=== PATIENT | male | born 1970 | race Caucasian/White ===

== ENCOUNTER 2022-12-05 11:56 | Outpatient (OUT) | payer OTHER, SELFPAY ==
--- NOTE | 2022-12-05 12:05 | XR_ITS ---
The [address] [address] Patient Name: MERI CABRERA MRN: [id number] date: 1970 Sex: M Assigned Patient Location: [facility] Current Patient Location: [facility] Accession/Order Number: [id number] Exam Date: 12/05/2022 12:17 Report Date: 12/05/2022 13:14 At the request of: MORENO BARRERA Procedure: XR cervical spine 5V EXAMINATION: XR cervical spine 5V HISTORY: Radiculopathy, cervical region M54.12 ; chronic neck pain COMPARISON: No relevant comparison available. FINDINGS: BONES: Minimal grade 1 retrolisthesis of C3 on 4 and C4 on 5. No fracture or bone lesion. Mild uncovertebral joint spurring and facet arthropathy resulting in bone encroachment and narrowing of the C3-4, C5-6, C6-7 neural foramen, left greater than right.. DISC SPACES: Slight narrowing C3-4 and C6-7. PARASPINOUS: Negative. No paraspinous abnormality is seen. OTHER: Negative. XR/XR cervical spine 5V IMPRESSION: 1. No appreciable acute abnormality. 2. Multilevel mild degenerative changes resulting in foraminal stenosis and possibly central canal narrowing. Consider MRI for further evaluation. Electronically authenticated by: JENNY MAGAÑA Date: 12/05/2022 13:14
--- NOTE | 2022-12-05 12:06 | XR_ITS ---
[address] [address] Patient Name: MERI CABRERA MRN: [id number] date: 1970 Sex: M Assigned Patient Location: RAD Current Patient Location: [facility] Accession/Order Number: [id number] Exam Date: 12/05/2022 12:17 Report Date: 12/05/2022 12:49 At the request of: MORENO BARRERA Procedure: XR lumbar spine 2-3V EXAM: XR lumbar spine 2-3V HISTORY: Low back pain M54.50 COMPARISON: None. TECHNIQUE: 2 views FINDINGS: Satisfactory alignment. Maintained vertebral body heights and disc spaces. No acute fracture or subluxation. Scattered calcified atherosclerotic disease of aorta. XR/XR lumbar spine 2-3V IMPRESSION: Unremarkable exam. Electronically authenticated by: KHUSHI DUONG Date: 12/05/2022 12:49
== END 2022-12-05 11:57 | disposition home or self-care (01) ==
PROVIDERS: PCP Family Medicine; Visit Provider Family Medicine
DX: M54.12 Radiculopathy, cervical region (principal); M54.50 Low back pain, unspecified
CPT/HCPCS: 72050; 72100

== ENCOUNTER 2023-01-09 14:33 | Outpatient (RCR) | payer OTHER, SELFPAY | END 2023-02-12 15:20 | disposition home or self-care (01) | LOC: PT 14:33 | PROVIDERS: PCP Family Medicine; Visit Provider Psychiatry & Neurology Neurology | DX: M50.30 Other cervical disc degeneration, unspecified cervical region (principal) | CPT/HCPCS: 97012; 97110; 97140; 97162 ==

== ENCOUNTER 2023-04-16 12:30 | Outpatient (OUT) | payer OTHER, SELFPAY ==
--- NOTE | 2023-04-16 | ECG_ITS ---
The [facility] Test Date: 2023-04-16 Pat Name: MERI CABRERA Department: Room: - Gender: Male [employer]: : 1970 Requested By: MORENO BARRERA Order Number: [id number] Reading MD: RAOUL MARTINEZ Measurements Intervals [place] Rate: 99 P: ND: QRS: 70 QRSD: 90 T: 65 QT: 333 QTc: 428 Interpretive Statements ATRIAL FIBRILLATION ABNORMAL RHYTHM ECG No previous ECG available for comparison Electronically Signed On 04-17-2023 7:10:44 EST by RAOUL MARTINEZ
--- OUTSIDE RECORDS SUMMARY | 2023-04-16 12:34 | XMS_ITS | CCD ---
Author Name Unknown Address [address] [place] [address] Organization [facility] Care Team Providers Care Radiological Engineer Name Role Phone YONY TAN Unavailable Unavailable No Family, Physician Unavailable Unavailable FRANCIBARBARA Unavailable Unavailable No Family, Physician Unavailable Unavailable Ele Peoples Family Provider Mckenzie C.N.P. Marie K. Primary Care Provider Mckenzie, C.N.P. Marie Magno. Attending Provider Ele Peoples Family Provider Mckenzie C.N.P. Marie K. Primary Care Provider [phone] Mckenzie C.N.P. Marie K. Attending Provider [phone] Diana Peoples Consulting Unavailable Mckenzie, Marie K. Attending Unavailable Mckenzie, Marie K. Primary Care Unavailable Shelton, Diana Consulting Unavailable Mckenzie, Marie K. Primary Care Unavailable Mckenzie, Marie K. Attending Unavailable Mckenzie, Marie K. Consulting Unavailable Mckenzie, Marie K. Attending Unavailable Mckenzie, Marie K. Primary Care Unavailable Mckenzie, Marie K. Attending Unavailable Mckenzie, Marie K. Consulting Unavailable Mckenzie, Marie K. Primary Care Unavailable Mckenzie, Marie K. Consulting Unavailable Mckenzei, Marie K. Attending Unavailable Mckenzie, Marie K. Primary Care Unavailable Mckenzie, Marie K. Attending Unavailable Mckenzie, Marie K. Primary Care Unavailable Shelton, Diana Consulting Unavailable Mckenzie, Marie K. Attending Unavailable Mckenzie, Marie K. Primary Care Unavailable Shelton, Diana Consulting Unavailable Mckenzie, Marie K. Attending Unavailable MckenzieMerlyMarie K. Primary Care Unavailable Diana Peoples Consulting Unavailable MckenzieMarie Attending Unavailable MckenzieCarolinea Ai Consulting Unavailable MckenzieMerlyMarie K. Primary Care Unavailable MckenzieMerlyMarie K. Attending Unavailable MckenzieMerlyMarie K. Consulting Unavailable Mckenzie Marie K. Primary Care Unavailable MckenzieMerlyMarie KRaymond Consulting Unavailable Florinda Guillory Attending Unavailable MckenzieMerlyMarie KRaymond Primary Care Unavailable MckenzieCarolinea K. Attending Unavailable MckenzieMarie sadler Consulting Unavailable MckenzieMerlyMarie K. Primary Care Unavailable Kat Boss Unavailable Monica Barrera Unavailable Zeb Delarosa Attending Unavaila NOELLE Harley Referring Unavail able LESVIA BUTLER Attending Unavailable LESVIA BUTLER Referring Unavailable MONICA BARRERA Primary Care Physician Allergies Allergy Classification Reported Allergen(s) Allergy Type Date of Onset Reaction(s) Facility (1 source) No Known Medication Allergies; Translations: [No Known Medication Allergies] Propensity to adverse reactions (disorder) [facility] Repository Medications Current Medications Medication Drug Class(es) Dates Sig (Normalized) Sig (Original) Tylenol (2 sources) Start: 03-20-2023 Tylenol Refills(s) 0 Start Date: 03/20/23 Status: Ordered Albuterol (5 sources) beta2-Adrenergic Agonist Start: 03-20-2023 albuterol Refills(s) 0 Start Date: 03/20/23 Status: Ordered take 2 puff(s) by in halation every four hours as needed Albuterol Sulfate HFA 108 (90 Base) MCG/ACT 2 puff Inhalation every 4 hrs prn Active aspirin 81 mg chewable tablet (2 sources) Platelet Aggregation Inhibitor, Nonsteroidal Anti-inflammatory Drug Start: 03-20-2023 take 1 tablet by mouth once daily aspirin 81 mg Chew Tab 81 mg = 1 tab(s), Oral, Daily, # 90 tab(s), Refills(s) 3 Start Date: 03/20/23 Status: Ordered busPIRone hydrochloride 10 mg oral tablet (1 source) Start: 06-11-2021 Buspirone Active 10 MG PO TWICE DAILY 60 June 11, 2021 9:04am start daily at HS x1 week then bid gabapentin 100 mg oral capsule (2 sources) Anti-epileptic Agent Start: 03-20-2023 gabapentin 100 mg Cap Refills(s) 0 Start Date: 03/20/23 Status: Ordered metoprolol tartrate 25 mg oral tablet (2 sources) beta-Adrenergic Larry Start: 03-20-2023 take 1 tablet by mouth twice daily Metoprolol tartrate 25 mg Tab 25 mg = 1 tab(s), Oral, BID, # 60 tab(s), Refills(s) 3, Pharmacy: [facility]/pharmacy #[id number], 178, cm, 03/20/23 13:55:00 EST, Height/Length Dosing, 102.2, kg, 03/20/23 13:55:00 EST, Weight Dosing Start Date: 03/20/23 Status: Ordered Lillian (No Known Home Meds) (1 source) Start: 03-12-2021 Lillian (No Known Home Meds) Active 0 March 12, 2021 8:12am Completed/Discontinued Medications Medication Drug Class(es) Dates Sig (Normalized) Sig (Original) escitalopram 10 mg oral tablet (3 sources) Serotonin Reuptake Inhibitor Start: 08-03-2020 End: 08-22-2020 take 1 tablet by mouth once daily Escitalopram Oxalate (Lexapro) 10 mg tablet Discontinued 10 MG PO DAILY August 03, 2020 11:00am August 22, 2020 9:15am FLUoxetine 10 mg oral capsule (3 sources) Serotonin Reuptake Inhibitor Start: 08-22-2020 End: 02-12-2021 take 1 capsule by mouth once daily Fluoxetine (Prozac) 10 mg capsule Discontinued 10 MG PO DAILY August 22, 2020 9:15am February 12, 2021 8:50am sertraline 50 mg oral tablet (3 sources) Serotonin Reuptake Inhibitor Start: 02-12-2021 End: 03-12-2021 take 50 mg by mouth once daily Sertraline Discontinued 50 MG PO daily February 12, 2021 9:45am March 12, 2021 9:01am Problems Active Problems Problem Classification Problem Date Documented Date Episodic/Chronic Anxiety disorders (18 sources) Posttraumatic stress disorder; Translations: [Post-traumatic stress disorder, unspecified] Onset: 02-12-2021 Chronic Asthma (6 sources) Exacerbation of mild persistent asthma; Translations: [Mild persistent asthma with (acute) exacerbation] Chronic Crushing injury or internal injury (3 sources) Rupture of spleen; Translations: [Other injury of spleen, initial encounter] Episodic Disorders usually diagnosed in infancy, childhood, or adolescence (1 source) 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 childhood and adolescence; Translations: [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 childhood and adolescence] Onset: 09-10-2021 Chronic Essential hypertension (2 sources) Hypertensive disorder 03-20-2023 Chronic Mood disorders (10 sources) Major depressive disorder; Translations: [Major depressive disorder, single episode, unspecified] Onset: 02-12-2021 Chronic Other connective tissue disease (2 sources) Swelling of finger ; Translations: [Other specified soft tissue disorders] Episodic Other connective tissue disease (6 sources) Other specified soft tissue disorders; Translations: [Swelling of limb] Onset: 03-12-2021 Episodic Other connective tissue disease (2 sources) Pain in right lower leg; Translations: [Pain in right lower leg] Onset: 12-12-2021 Episodic Other connective tissue disease (1 source) Pain in leg, unspecified; Translations: [Pain in leg, unspecified] Onset: 11-28-2021 Episodic Other ear and sense organ disorders (3 sources) Sensorineural hearing loss, bilateral; Translations: [Sensorineural hearing loss, bilateral] Chronic Other ear and sense organ disorders (3 sources) Tinnitus; Translations: [Tinnitus, unspecified ear] Episodic Other ear and sense organ disorders (1 source) Impacted cerumen, bilateral Episodic Other non-traumatic joint disorders (3 sources) Arthralgia of the pelvic region and thigh; Translations: [Pain in right hip] Episodic Other non-traumatic joint disorders (3 sources) Hip pain; Translations: [Pain in right hip] Episodic Other nutritional; endocrine; and metabolic disorders (3 sources) Body mass index 25-29 - overweight; Translations: [Body mass index (BMI) 25.0-25.9, adult] Episodic Other nutritional; endocrine; and metabolic disorders (5 sources) Body mass index (BMI) 25.0-25.9, adult; Translations: [Body Mass Index 25.0-25.9, adult] Episodic Other upper respiratory disease (3 sources) Deviated nasal septum; Translations: [Deviated nasal septum] Episodic Residual codes; unclassified (3 sources) Chews tobacco ; Translations: [Tobacco use] Episodic Residual codes; unclassified (2 sources) Insomnia; Translations: [Insomnia, unspecified] Episodic Residual codes; unclassified (2 sources) Insomnia, unspecified; Translations: [Insomnia, unspecified] Episodic Residual codes; unclassified (1 source) Body mass index 20-24 - normal; Translations: [Body mass index (BMI) 24.0-24.9, adult] Episodic Residual codes; unclassified (1 source) Body mass index (BMI) 24.0-24.9, adult; Translations: [Body Mass Index between 19-24, adult] Episodic Residual codes; unclassified (2 sources) Memory impairment 03-20-2023 Episodic Skin and subcutaneous tissue infections (2 sources) Cellulitis of right lower limb; Translations: [Cellulitis of right lower limb] Onset: 12-03-2021 Episodic Spondylosis; intervertebral disc disorders; other back problems (3 sources) Radiculopathy, cervical region; Translations: [Spinal stenosis, cervical region] Episodic Substance-related disorders (9 sources) Nicotine dependence; Translations: [Nicotine dependence, cigarettes, uncomplicated] Chronic Suicide and intentional self-inflicted injury (3 sources) Suicidal thoughts; Translations: [Suicidal ideations] Episodic Systemic lupus erythematosus and connective tissue disorders (2 sources) Autoimmune disease 03-20-2023 Chronic Unclassified (7 sources) Tobacco use; Translations: [Tobacco use disorder] Onset: 04-28-2017 Episodic Unclassified (1 source) Emphysema, unspecified / J43.9(ICD-10) Onset: 04-27-2017 Unclassified (1 source) Encounter for preprocedural laboratory examination / Z01.812(ICD-10) Onset: 04-28-2017 Unclassified (1 source) Encounter for other preprocedural examination / Z01.818(ICD-10) Onset: 04-14-2017 Unclassified (2 sources) Unilateral primary osteoarthritis, right hip / M16.11(ICD-10) Onset: 04-27-2017 Unclassified (2 sources) Tobacco use / Z72.0(ICD-10) Onset: 04-27-2017 Unclassified (1 source) Carrier or suspected carrier of methicillin resistant Staphylococcus aureus / Z22.322(ICD-10) Onset: 04-28-2017 Past or Other Problems Problem Classification Problem Date Documented Date Episodic/Chronic Immunizations and screening for infectious disease (1 source) Carrier or suspected carrier of Methicillin resistant Staphylococcus aureus; Translations: [Carrier or suspected carrier of methicillin resistant Staphylococcus aureus] Onset: 04-28-2017 Episodic Unclassified (1 source) Unilateral primary osteoarthritis, right hip; Translations: [Unilateral primary osteoarthritis, right hip] Onset: 04-28-2017 Unclassified (1 source) Encounter for preprocedural laboratory examination; Translations: [Encounter for preprocedural laboratory examination] Onset: 04-28-2017 Unclassified (1 source) Lumbar pain M54.50 Results Test Name Value Interpretation Reference Range Facility [facility] V[facility] Office/ inic Noteon 03-30-2023 Heart and Vascular Office/Clinic Note Chief Complaint here to establish care - tachycardia History of Present Illness Chuckie Rangel is a 52-year-old male with no prior cardiac history who presented with atrial fibrillation detected on his EKG. The patient reports that he had neck discomfort, left arm numbness, and blurry vision. These symptoms occurred during strenuous work at [employer], involving fast-paced tasks and a sudden physical exertion by a colleague. Despite a brief improvement in a different role, his symptoms worsened when the workload intensified. He sought medical attention after persistent left arm numbness and tingling, with a dismissive response that he did not have a heart attack or excessive perspiration. He experienced a workplace fall at the parking lot in [place], resulting in a ruptured spleen and a right arm fracture. He walked into the clinic and reported an inability to move the affected arm. Pain is elicited upon twisting the arm, but the patient demonstrates tolerance to pain. He went to occupational health after 3.5 hours, where they advised him to go home and get some rest. When he got home, he called 911, and they sent him straight to [facility], where they found a ruptured spleen. He has been bleeding since 2:30 AM. He denies any heart problems. He experiences sensations of a rapid and irregular heartbeat. Occasional chest pain and tightness are noted, occurring even at rest. Fatigue is pronounced, leading to increased sleep duration. The patient experiences ankle swelling and consistently wears socks. He was adopted when he was 5 years old. He used to consume alcohol, but he quit approximately 7 months ago. He drinks almost every day. Review of Systems Constitutional: no fever, no sweats, no weakness Skin: no rash, no lesions, no bruising/petechiae ENMT: no sore throat, no congestion, no hoarseness Respiratory: no shortness of breath, no cough, no orthopnea, no wheezing Cardiovascular: positive for chest discomfort, positive for palpitations, no edema Gastrointestinal: no nausea, no vomiting, no diarrhea, no GI bleeding Genitourinary: no anuria/oliguria no hematuria Musculoskeletal: positive for neck discomfort and left arm numbness Neurologic: no headache, no dizziness, no numbness, no weakness Psychiatric: no sleeping problems, no irritability, no anxiety/depression. Heme/Lymph: no bleeding tendency, no bruising tendency Allergy/Immunologic: no recurrent infections, no impaired immunity Additional ROS info: Except as noted in the above Review of Systems and in the History of Present Illness all other systems have been reviewed and are negative or noncontributory Physical Exam Vitals & Measurements HR: 116(Peripheral) BP: 132/80 SpO2: 96% HT: 70 in HT: 178 cm WT: 102.2 kg WT: 224.84 lb BMI: 32.26 General: alert, no acute distress Skin: warm, dry intact Head: atraumatic, normocephalic Neck: trachea midline, no JVD, no bruit Eye: normal conjunctiva, sclera clear ENMT: oral mucosa moist Cardiovascular: regular rate and rhythm, no murmur, normal peripheral perfusion Respiratory: lungs CTA, respirations non labored Chest wall: no deformity. Gastrointestinal: soft, non-distended, no tenderness, no guarding. Back: no tenderness, normal ROM, normal alignment. Extremities: no edema, no deformity, no trauma Neurological: oriented x 4, LOC appropriate for age, sensation equal & normal bilaterally, speech normal Psychiatric: cooperative, affect appropriate for age, normal judgement, normal psychiatric thoughts. Assessment/Plan 1. New onset atrial fibrillation 52-year-old male with no prior cardiac history and atrial fibrillation detected on his EKG. The duration is unclear because the patient has some palpitations but never really felt like there was a specific time that things changed for him. He has been having some issues at work recently, but the symptoms in his left arm appear to be unrelated. He does have a little chest discomfort with exertion. He has PVCs and atrial fibrillation. We will get a nuclear medicine stress test to evaluate that. We will also do a transthoracic echocardiogram due to new-onset atrial fibrillation. We will start him on aspirin 81 mg and metoprolol 25 mg twice a day. Follow up in 6 weeks in [place]. ATTESTATION: Portions of this record may have been created with voice recognition artificial intelligence software, specifically [employer], [employer]umi[employer] and or Cannae. Substitutions may have occurred with voice recognition and artificial intelligence software. Documentation services were performed after patient or guardian consented to allow [employer] travel to record this visit. ESTEFANIA calibration specialist and provider reviewed before signing. ESTEFANIA: Laurie Kaur Follow-up No qualifying data available Problem List/Past Medical History Ongoing No qualifying data Historical Anxiety Asthma Autoimmune disorder Hypertension Memory Issu (more content not included)... Normal [facility] Comment on above: Result Comment: Elec tronically Signed By: Isaura RUBIO, Zeb Reza\.br\Date and Time Signed: 03/30/23 21:01 EST\.br\Electronically Co-Signed By: Laurie Kaur\.br\Date and Time Co-Signed: 03/20/23 17:31 EST Insurance Correspondenceon 0 03-28-2023 Insurance Correspondence [id number]#1.00T [facility] Insurance Correspondence [id number]#1.00T IFF [facility] Electrocardiogram - 12 leado n 03-21-2023 Electrocardiogram - 12 lead [id number]#1.00 TIFF [facility] Physician Orderon 03-21-2023 Physician Order [id number]#1.00 TIFF [facility] Referrals Officeon Referrals Office [id number]#1.00 TIFF Normal [facility] MRI TIB/FIB Right w/wo Conto n 12-21-2021 MRI TIB/FIB Right w/wo Cont [place] [id number] [facility] MRI Report Name: MERI NOGUERA Mark Coello Pt Type: DEP OUT MR #: [id number] Room & Bed: Date of : 1970 Date of Service: 12/20/21 Age: 51 Ordering Doctor: Marie Mckenzie CNP Sex: Male Family Doctor: Marie Mckenzie PROFESSIONAL ARCHITECT Order #: [id number] Dictating Doctor: Meri Ozuna Admit Date: Referring Doctor: Other Doctor: Additional Copies: === WHRPT:HIE CLINICAL HISTORY: Right lower leg pain and swelling for 5 weeks. MRI RIGHT TIBIA/FIBULA WITH AND WITHOUT CONTRAST: TECHNIQUE: Before and after the administration of 18 mL of IV Omniscan contrast, multiplanar long and short TR and TE images were obtained through the right tibia/fibula and the coronal and axial images also include the left tibia/fibular for comparison purposes. COMPARISON: Radiographs of 12/03/2021. FINDINGS: There is a nondisplaced oblique fracture (most likely a stress or insufficiency fracture) in the distal diaphysis and metaphysis of the right tibia, with extensive surrounding bone marrow edema and periosteal edema throughout the distal half of the right tibia. No abnormal underlying bone lesion is seen. The remainder of the bone marrow is normal in signal. The visualized muscles and tendons are intact. No abnormal fluid collection or soft tissue mass is seen. IMPRESSION: 1. Nondisplaced oblique fracture (most likely a stress or insufficiency fracture) in the distal diaphysis and metaphysis of the right tibia, with extensive surrounding bone marrow edema and periosteal edema. THIS REPORT HAS BEEN ELECTRONICALLY SIGNED BY: 12/21/2021 10:51: Meri Ozuna MD 12/21/21 1053 ---- DICTATED BY: Meri Ozuna CC: CONFIDENTIALITY NOTICE: This report is for the sole use of the intended recipient and may contain confidential and privileged information. Any unauthorized review, use, disclosure or distribution is prohibited. If you are not the intended recipient, please contact [facility] at [phone] and destroy all copies of the original. Normal [facility] CBC W Auto Differential pane l (Bld)on 12-18-2021 BASOPHIL ABSOLUTE COUNT 0.07 x10*3/uL Normal 0.0-0.1 [facility] Comment on above: Performed By: #### 5 7021-8, 66446-3, 99998-4 #### [facility] [address] Basophils/100 WBC (Bld) 0.3 % Normal 0.0-1.1 [facility] Comment on above: Performed By: #### 5 7021-8, 81850-0, 34645-2 #### [facility] [address] EOS ABSOLUTE COUNT 0.18 x10*3/uL Normal 0.0-0.5 [facility] Comment on above: Performed By: #### 5 7021-8, 58547-0, 47264-6 #### [facility] [address] [address] [facility] Eosinophils/100 WBC (Bld) 0.8 % Normal 0.0-6.0 [facility] Comment on above: Performed By: #### 5 7021-8, 40153-2, 14595-0 #### [facility] [address] [address] [facility] Hematocrit (Bld) [Volume fraction] 44.3 % Normal 35.0-49.0 [facility] Comment on above: Performed By: #### 5 7021-8, 82262-6, 21001-4 #### [facility] [address] Hemoglobin (Bld) [Mass/Vol] 14.6 g/dL Normal 11.5-17.0 [facility] Comment on above: Performed By: #### 5 7021-8, 85625-8, 87321-3 #### [facility] [address] IMMATURE GRAN ABSOLUTE COUNT 0.12 x10*3/uL Normal 0.0-0.5 [facility] Comment on above: Performed By: #### 5 7021-8, 07301-0, 13720-3 #### [facility] [address] Immature granulocytes/100 WBC (Bld) 0.5 % Normal 0.0-2.99 [facility] Comment on above: Performed By: #### 5 7021-8, 42138-1, 54464-1 #### [facility] [address] LYMPHOCYTE ABSOLUTE COUNT 5.98 x10*3/uL High 0.5-3.2 [facility] Comment on above: Performed By: #### 5 70-8, 33815-1, 95089-1 #### [facility] [address] Lymphocytes/100 WBC (Bld) 26.1 % Normal 13.0-39.0 [facility] Comment on above: Performed By: #### 5 7021-8, 64774-5, 62001-5 #### [facility] [address] MCH (RBC) [Entitic mass] 30.8 pg Normal 26.0-33.0 [facility] Comment on above: Performed By: #### 5 7021-8, 36746-4, 90321-9 #### [facility] [address] MCV (RBC) [Entitic vol] 93.5 fL Normal 81.0-98.0 [facility] Comment on above: Performed By: #### 5 7021-8, 73878-8, 88051-6 #### [facility] [address] MEAN CORPUSCULAR HGB CONC 33.0 g/dl Normal 31.0-35.0 [facility] Comment on above: Performed By: #### 5 7021-8, 26972-7, 83331-0 #### [facility] [address] [address] [facility] MONOCYTE ABSOLUTE COUNT 2.31 x10*3/uL High 0.0-1.0 [facility] Comment on above: Performed By: #### 5 7021-8, 98569-7, 43718-3 #### [facility] [address] [address] [facility] Monocytes/100 WBC (Bld) 10.1 % Normal 4.0-13.0 [facility] Comment on above: Performed By: #### 5 7021-8, 33091-8, 08741-0 #### [facility] [address] [address] [facility] NEUTROPHIL COUNT ABSOLUTE 14.27 x10*3/uL High 1.5-6.2 [facility] Comment on above: Performed By: #### 5 7021-8, 67259-4, 51639-9 #### [facility] [address] [address] [facility] Neutrophils/100 WBC (Bld) 62.2 % Normal 47.0-76.0 [facility] Comment on above: Performed By: #### 5 7021-8, 40357-0, 17758-1 #### [facility] [address] [address] [facility] NUCLEATED RBC ABSOLUTE COUNT 0.00 x10*3/uL Normal [facility] Comment on above: Performed By: #### 5 7021-8, 48455-5, 27508-0 #### [facility] [address] [address] [place] Nucleated RBC/100 WBC (Bld) [Ratio] 0.0 % Normal [facility] Comment on above: Performed By: #### 5 7021-8, 63136-3, 78522-8 #### [facility] [address] [address] [facility] PLATELET COUNT 430 x10*3/uL High 150-400 [facility] Comment on above: Performed By: #### 5 7021-8, 07909-1, 05608-9 #### [facility] [address] Platelet mean volume (Bld) [Entitic vol] 10.6 fL Normal 9.0-12.1 [facility] Comment on above: Performed By: #### 5 7021-8, 75815-8, 80592-1 #### [facility] [address] RED BLOOD COUNT 4.74 x10*6/uL Normal 3.8-6.0 [facility] Comment on above: Performed By: #### 5 7021-8, 14882-9, 33415-6 #### [facility] [address] RED CELL DISTRIBUTION WIDTH 46.0 fL Normal 36.7-49.4 [facility] Comment on above: Performed By: #### 5 70-8, 84250-4, 93928-8 #### [facility] [address] WHITE BLOOD COUNT 22.93 X10*3/uL High 3.8-11.0 [facility] Comment on above: Performed By: #### 5 7021-8, 00922-7, 69769-0 #### [facility] [address] Differential panel (Body fld )on 12-18-2021 BANDS 2 % High 0-1 [facility] Comment on above: Performed By: #### 5 7021-8, 17115-7, 08911-9 #### [facility] [place] [id number] [facility] Basophils/100 WBC (Bld) 0 % Normal 0-1 [facility] Comment on above: Performed By: #### 5 7021-8, 34415-4, 87926-1 #### [facility] [place] [id number] [facility] Eosinophils/100 WBC (Bld) 1 % Normal 0-6 [facility] Comment on above: Performed By: #### 5 7021-8, 95197-8, 19393-9 #### [facility] [address] [address] [place] Lymphocytes/100 WBC (Bld) 25 % Low 38-46 [facility] Comment on above: Performed By: #### 5 7021-8, 97694-6, 59134-3 #### [facility] [address] [address] [place] Monocytes/100 WBC (Bld) 4 % Normal 2-10 [facility] Comment on above: Performed By: #### 5 7021-8, 14632-8, 68953-8 #### [facility] [address] [address] [place] Neutrophils/100 WBC (Bld) 62 % Normal 47-76 [facility] Comment on above: Performed By: #### 5 7021-8, 30434-7, 15271-5 #### [facility] [address] [address] [facility] Variant lymphocytes/100 WBC (Bld) 6 % Normal [facility] Comment on above: Performed By: #### 5 7021-8, 57118-5, 17361-8 #### [facility] [address] [address] [facility] Pathologist review of result son 12-18-2021 Pathologist review Armando (Unsp spec) [Interp] SEE COMMENT Normal [facility] Comment on above: Result Comment: Lymp hocytosis noted, favor reactive. If persistent, further investigation with flow cytometric analysis of peripheral blood is suggested for lymphocyte phenotyping in order to exclude a lymphoproliferative neoplasm. Reviewed by Dr. Kumar Performed By: #### 5 7021-8, 94196-9, 19604-5 #### [facility] [address] [address] [place] Urate [Mass/Vol]on 2 CNET-Uric Acid #URIC 6.7 MG/DL Normal 4.0-8.0 [facility] Comment on above: Result Comment: (NOT E)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
[2023-04-16 13:47] LABS: Basophils Absolute Auto 0.1 10^3/uL (0.0-0.1); Eosinophils Absolute Auto 0.2 10^3/uL (0.0-0.7); Eosinophils Percent Auto 1.9 % (0.9-7.0); Immature Granulocytes Abs Auto 0.02 10^3/uL (0.00-0.03); Immature Granulocytes Pct Auto 0.2 % (0.0-0.5); Lymphocytes Absolute Auto 3.8 10^3/uL (1.2-3.8); Lymphocytes Percent Auto 30.2 % (20.5-60.0); Mean Corpuscular HGB Conc 32.6 g/dL (29.9-35.2); Mean Corpuscular Hemoglobin 30.1 pg (25.9-34.0); Mean Corpuscular Volume 92.4 fL (80.0-94.0); Mean Platelet Volume 10.8 fL (9.5-13.5); Monocytes Absolute Auto 1.2 10^3/uL (0.3-0.8); Monocytes Percent Auto 9.4 % (1.7-12.0); Neutrophils Absolute Auto 7.1 10^3/uL (1.4-6.5); Neutrophils Percent Auto 57.3 % (43.0-75.0); Platelet Count 377 10^3/uL (150-450); Red Blood Count 4.98 10^6/uL (4.70-6.10); Red Cell Distribution Width 13.5 % (11.0-15.0); White Blood Count 12.4 10^3/uL (4.0-11.0)
[2023-04-16 14:02] LABS: Anion Gap 8.2; Calcium 9.2 mg/dL (8.5-10.1); Carbon Dioxide 32.9 mmol/L (21.0-32.0); Chloride 102 mmol/L (98-107); Estimated GFR (African America >60 (>=60); Estimated GFR (Non-African Ame >60 (>=60); Glucose 95 mg/dL (74-106); Potassium 4.1 mmol/L (3.5-5.1); Sodium 139 mmol/L (136-145)
== END 2023-04-16 12:31 | disposition home or self-care (01) ==
PROVIDERS: PCP Family Medicine; Visit Provider Orthopaedic Surgery
DX: Z01.812 Encounter for preprocedural laboratory examination (principal); Z01.810 Encounter for preprocedural cardiovascular examination; M25.531 Pain in right wrist; M25.532 Pain in left wrist; G56.03 Carpal tunnel syndrome, bilateral upper limbs; M54.12 Radiculopathy, cervical region
CPT/HCPCS: 36415; 80048; 85025; 93005

== ENCOUNTER 2023-04-23 11:27 | Outpatient (OUT) | payer OTHER, SELFPAY ==
--- OUTSIDE RECORDS SUMMARY | 2023-04-23 11:32 | XMS_ITS | CCD ---
Author Name Unknown Address [address] [place] [address] Organization [facility] Care Team Providers Care Solutions Manager Name Role Phone TANYONY Unavailable Unavailable No Family, Physician Unavailable Unavailable BARBARA KOROMA Unavailable Unavailable No Family, Physician Unavailable Unavailable Ele Peoples Family Provider [phone] Claudia Mckenzie Primary Care Provider Mone MckenzieNJovany Morelandndmark Cloud Attending Provider [phone] Ele Peoples Family Provider Claudia Mckenziendmark Cloud Primary Care Provider Claudia Mckenziendmark Kiran. Attending Provider [phone] Diana Peoples Consulting Unavailable Mckenzie, Marie Magno. Attending Unavailable Mckenzie, Marie K. Primary Care Unavailable Diana Peoples Consulting Unavailable Mckenzie, Marie K. Primary Care Unavailable Mckenzie, Marie K. Attending Unavailable Mckenzie, Marie K. Consulting Unavailable Mckenzie, Marie K. Attending Unavailable Mckenzie, Marie K. Primary Care Unavailable Mckenzie, Marie K. Attending Unavailable Mckenzie, Marie K. Consulting Unavailable Mckenzie, Marie K. Primary Care Unavailable Mckenzie, Marie K. Consulting Unavailable Mckenzie, [...] Care Unavailable Mckenzie, Marie K. Consulting Unavailable Florinda Guillory Attending Unavailable Mckenzie, Marie K. Primary Care Unavailable Mckenzie, Marie K. Attending Unavailable Mckenzie, Marie K. Consulting Unavailable Mckenzie, Marie K. Primary Care Unavailable Kat Boss Unavailable Monica Barrera Unavailable LESVIA BUTLER Attending Unavailable LESVIA BUTLER Referring Unavailable MONICA BARRERA Primary Care Physician MELANY Le Attending Provider Unavailable MD Monica Barrera Primary Care Provider Monica Barrera Primary Care Unavailable Noelle Le Attending Unavailable Noelle Le Admitting Unavailable NOELLE LE Referring Unavail able Zeb Delarosa Attending Zeb Fuchs Admitting Zeb Fuchs Consulting UnavailZeb Alegria Attending Zeb Fuchs Referring UnavailZeb Alegria Consulting UnavailZeb Alegria Consulting Unavailmark ramirez Allergies Allergy Classification Reported Allergen(s) Allergy Type Date of Onset Reaction(s) Facility (1 source) Unable to Assess Drug allergy (disorder) [facility] Repository (1 source) No Known Medication Allergies; Translations: [No Known Medication Allergies] Propensity to adverse reactions (disorder) [facility] Repository Medications Current Medications Medication Drug Class(es) [...] BID, # 60 tab(s), Refills(s) 3, Pharmacy: [facility]/pharmacy #[id number], 178, cm, 03/20/23 13:55:00 EST, Height/Length Dosing, 102.2, kg, 03/20/23 13:55:00 EST, Weight Dosing Start Date: 03/20/23 Status: Ordered [place] (No Known Home Meds) (1 source) Start: 03-12-2021 [place] (No Known Home Meds) Active 0 March [...] Test Name Value Interpretation Reference Range Facility NM Myocardial Spect Rest/Str ess 1 Dayon 04-22-2023 NM Myocardial Spect Rest/Stress 1 Day Exam Date/Time: 04/15/2023 11:35 EST Reason for Exam: R00.0, R07.9;Chest pain Report PROCEDURE: Lexiscan nuclear stress test. INDICATIONS: Chest pain. PROCEDURE DETAILS: The patient was stressed according to Lexiscan protocol without event. The patient's baseline EKG was atrial fibrillation with rapid ventricular response and the patient remained in atrial fibrillation with rapid ventricular response throughout the test. There were no EKG changes and no symptoms. Blood pressure response was appropriate. The patient received 10.4 mCi of Cardiolite for rest images and 30.1 mCi of Cardiolite for stress images. Review of raw images demonstrated some soft tissue attenuation and mild motion artifact. FINDINGS: Uptake of the tracer was homogeneous with no identifiable ischemia or infarction. The TID ratio was 0.91. The ejection fraction was 35%. End-diastolic volume was 127 mL. CONCLUSIONS: Abnormal Lexiscan stress test for significant reduction of ejection fraction, otherwise no significant findings. Cannot exclude the ejection fraction is related to gating artifact from atrial fibrillation with rapid ventricular response. Clinical correlation is suggested. FINAL REPORT Signed (Electronic Signature): 04/22/2023 2:55 pm Signed by: Zeb Delarosa MD Transcribed by: brooke Technologist: LANE Technical Comments Rest Dose (mCi Tc99m Cardiolite): 10.4 Stress Dose (mCi Tc99M Cardiolite): 30.1 Normal [facility] MR cervical spine wo conon 0 04-17-2023 MR cervical spine wo [facility] [place] [address] [place] [address] MRI Report Signed Patient: Meri Noguera MR#: [id number] : 1970 Acct:[id number] Age/Sex: 52 / M ADM Date: 04/17/23 Loc: Room: Type: [facility] Attending Dr: Noelle Le RN Copies to: Noelle Le RN Ordering Provider: Noelle Le RN Date of Service: 04/17/23 MR/MR cervical spine wo con: M54.12 MR cervical spine wo con 04/17/2023 7:24 AM SIGNS AND SYMPTOMS: Cervical radiculopathy PROTOCOL: Multiplanar multisequence MR images of the cervical spine were obtained without IV contrast COMPARISON: None. FINDINGS: The bones of the cervical spine are in anatomic alignment. There is preservation of vertebral body heights. There is mild vertebral disc height loss at C6-C7. There is right-sided facet edema at C7. There is Modic type I endplate edema at C3-C4 and C4-C5. The cord is normal in signal. No epidural or paraspinous fluid collection is appreciated. The visualized paraspinous soft tissues are within normal limits. The prevertebral soft tissues are within normal limits. At C2-C3: There is a normal disc, central canal, and neural foramen. At C3-C4: There is right-sided uncovertebral joint spurring and bilateral facet hypertrophy. There is moderate right and mild left neural foraminal narrowing. At C4-C5: There is a broad-based disc bulge with mild facet and uncovertebral degenerative change. There is mild bilateral neural foraminal narrowing without significant spinal canal narrowing. At C5-C6: There is a normal disc, central canal, and neural foramen. At C6-C7: There is a broad-based disc bulge with facet and uncovertebral degenerative change contributing to mild spinal canal narrowing and mild bilateral neural foraminal. At C7-T1: There is a normal disc, central canal, and neural foramen. MR/MR cervical spine wo con IMPRESSION: No cord compression or cord signal abnormality. At C3-C4: There is right-sided uncovertebral joint spurring and bilateral facet hypertrophy. There is moderate right and mild left neural foraminal narrowing. At C4-C5: There is a broad-based disc bulge with mild facet and uncovertebral degenerative change. There is mild bilateral neural foraminal narrowing without significant spinal canal narrowing. At C6-C7: There is a broad-based disc bulge with facet and uncovertebral degenerative change contributing to mild spinal canal narrowing and mild bilateral neural foraminal. Impression dictated by: Robe Fox M.D.04/17/2023 2:28 PM Dictation Location: [place] [address] Transcribed By: [facility] 04/17/231427 Dictated By: Robe Fox II, MD 04/17/231424 Signed By: 04/17/23 1428 [facility] MR head/brain wo/w conon MR head/brain wo/w con [facility] [address] MRI Report Signed Patient: Meri Noguera MR#: [id number] : 1970 Acct:[id number] Age/Sex: 52 / M ADM Date: 04/17/23 Loc: MR Room: Type: [facility] Attending Dr: Noelle Le RN Copies to: Noelle Le RN Ordering Provider: Noelle Le RN Date of Service: 04/17/23 MR/MR head/brain wo/w con: H53.8, R20.2 MR head/brain wo/w con 04/17/2023 7:24 AM SIGN AND SYMPTOMS: Left arm numbness, blurred vision PROTOCOL: Multiplanar multisequence MR images of the brain were obtained with and without IV contrast CONTRAST: 20 mL of intravenous ProHance COMPARISON: None. FINDINGS: Extra axial spaces: Age appropriate. Hemorrhage: None. Ventricular system: Within normal limits. Basal cisterns: Within normal limits and not effaced. Cerebral parenchyma: There are punctate foci of T2 and T2 FLAIR hyperintense signal consistent with mild chronic microvascular ischemic change. Midline shift: None.. Cerebellum: Within normal limits. Brainstem: Within normal limits. OTHER: Calvarium: Normal marrow signal. Vascular system: Satisfactory flow voids within the anterior and posterior circulation. Visualized Paranasal sinuses: Mucosal thickening is noted in the maxillary sinuses, left sphenoid sinus, and ethmoid air cells. Visualized Orbits: Within normal limits. Visualized upper cervical spine: Within normal limits. Sella and skull base: Within normal limits. MR/MR head/brain wo/w con IMPRESSION: No acute intracranial pathology. Findings suggest mild chronic microvascular ischemic change. Mucosal thickening is noted in the maxillary sinuses, left sphenoid sinus, and ethmoid air cells. Impression dictated by: Robe Fox M.D.04/17/2023 2:35 PM Dictation Location: [place] [address] Transcribed By: [facility] 04/17/23 1435 Dictated By: Robe Fox II, MD 04/17/23 1429 Signed By: 04/17/23 1435 [facility] Consent for Treatmenton 03-25 Consent for Treatment [id number]#1.00T IFF Normal [facility] Heart and Vascular Office/Cl inic Noteon 03-30-2023 Heart and Vascular Office/Clinic Note Chief Complaint here to establish care - tachycardia History of Present Illness Chuckie Jerez is a 52-year-old male with no prior cardiac history who presented with atrial fibrillation detected on his EKG. The patient reports that he had neck discomfort, left arm numbness, and blurry vision. These symptoms occurred during strenuous work at [employer], involving fast-paced tasks and a sudden physical exertion by a colleague. Despite a brief improvement in a different role, his symptoms worsened when the workload intensified. He sought medical attention after persistent left arm numbness and tingling, with a dismissive response that he did not have a heart attack or excessive perspiration. He experienced a workplace fall at the parking lot in [place], resulting in a ruptured spleen and a [...] 911, and they sent him straight to [facility], where they found a ruptured spleen. [...] day. Follow up in 6 weeks in [place]. ATTESTATION: Portions of this record may have been created with voice recognition artificial intelligence software, specifically [employer] and or [employer] Substitutions may have occurred with voice recognition and artificial intelligence software. Documentation services were performed after patient or guardian consented to allow [employer] to record this visit. ESTEFANIA media marketing specialist and provider reviewed before signing. ESTEFANIA: Laurie Kaur Follow-up No qualifying data available Problem List/Past Medical History Ongoing No qualifying data Historical Anxiety Asthma Autoimmune disorder Hypertension Memory Issu (more content not included)... Normal [facility] Comment on above: Result Comment: Elec tronically Signed By: Isaura RUBIO, Zeb Reza\.br\Date and Time Signed: 01/07/24 21:01 EST\.br\Electronically Co-Signed By: Laurie Kaur\.br\Date and Time Co-Signed: 03/20/23 17:31 EST Insurance Correspondenceon 0 03-28-2023 Insurance Correspondence [id number]#1.00T IFF Normal [facility] Insurance Correspondence [id number]#1.00T IFF Normal [facility] Electrocardiogram - 12 leado n 03-21-2023 Electrocardiogram - 12 lead [id number]#1.00 TIFF Normal [facility] Physician Orderon 03-21-2023 Physician Order [id number]#1.00 TIFF Normal [facility] Referrals Officeon Referrals Office [id number]#1.00 TIFF Normal [facility] MRI TIB/FIB Right w/wo Conto n 12-21-2021 MRI TIB/FIB Right w/wo Cont [place] [address] Diagnostic Imaging MRI Report Name: MERI NOGUERA Sr. Pt Type: DEP OUT MR #: [id number] Room & Bed: Date of : 1970 Date of Service: 12/20/21 Age: 51 Ordering Doctor: Marie Mckenzie CNP Sex: Male Family Doctor: Marie Mckenzie CINDER BLOCK MASON Order #: [id number] Dictating Doctor: Meri Ozuna Admit Date: Referring [...] are not the intended recipient, please contact [facility] at [phone] and destroy all copies of the original. Normal [facility] CBC W Auto Differential pane l (Bld)on 12-18-2021 BASOPHIL ABSOLUTE COUNT 0.07 x10*3/uL Normal 0.0-0.1 [facility] Comment on above: Performed By: #### 5 7021-8, 50016-8, 13068-7 #### [facility] [address] Basophils/100 WBC (Bld) 0.3 % Normal 0.0-1.1 [facility] Comment on above: Performed By: #### 5 7021-8, 22126-9, 24656-5 #### [facility] [address] EOS ABSOLUTE COUNT 0.18 x10*3/uL Normal 0.0-0.5 [facility] Comment on above: Performed By: #### 5 7021-8, 03787-5, 74820-8 #### [facility] [address] Eosinophils/100 WBC (Bld) 0.8 % Normal 0.0-6.0 [facility] Comment on above: Performed By: #### 5 7021-8, 58397-2, 63393-2 #### [facility] [address] Hematocrit (Bld) [Volume fraction] 44.3 % Normal 35.0-49.0 [facility] Comment on above: Performed By: #### 5 7020-8, 36050-1, 45640-0 #### [facility] [address] Hemoglobin (Bld) [Mass/Vol] 14.6 g/dL Normal 11.5-17.0 [facility] Comment on above: Performed By: #### 5 70-8, 68299-6, 97638-2 #### [facility] [address] IMMATURE GRAN ABSOLUTE COUNT 0.12 x10*3/uL Normal 0.0-0.5 [facility] Comment on above: Performed By: #### 5 7021-8, 71488-0, 58769-2 #### [facility] [address] Immature granulocytes/100 WBC (Bld) 0.5 % Normal 0.0-2.99 [facility] Comment on above: Performed By: #### 5 7021-8, 75241-4, 62793-5 #### [facility] [address] LYMPHOCYTE ABSOLUTE COUNT 5.98 x10*3/uL High 0.5-3.2 [facility] Comment on above: Performed By: #### 5 7021-8, 74709-1, 46150-5 #### [facility] [address] Lymphocytes/100 WBC (Bld) 26.1 % Normal 13.0-39.0 [facility] Comment on above: Performed By: #### 5 7021-8, 01201-7, 27435-5 #### [facility] [address] MCH (RBC) [Entitic mass] 30.8 pg Normal 26.0-33.0 [facility] Comment on above: Performed By: #### 5 7021-8, 85886-6, 61766-4 #### [facility] [address] MCV (RBC) [Entitic vol] 93.5 fL Normal 81.0-98.0 [facility] Comment on above: Performed By: #### 5 7020-8, 62286-2, 56513-8 #### [facility] [address] MEAN CORPUSCULAR HGB CONC 33.0 g/dl Normal 31.0-35.0 [facility] Comment on above: Performed By: #### 5 7020-8, 11709-5, 32668-0 #### [facility] [address] MONOCYTE ABSOLUTE COUNT 2.31 x10*3/uL High 0.0-1.0 [facility] Comment on above: Performed By: #### 5 7020-8, 59058-5, 41949-6 #### [facility] [address] Monocytes/100 WBC (Bld) 10.1 % Normal 4.0-13.0 [facility] Comment on above: Performed By: #### 5 70-8, 16557-7, 57247-5 #### [facility] [address] NEUTROPHIL COUNT ABSOLUTE 14.27 x10*3/uL High 1.5-6.2 [facility] Comment on above: Performed By: #### 5 7021-8, 27639-3, 87764-6 #### [facility] [address] Neutrophils/100 WBC (Bld) 62.2 % Normal 47.0-76.0 [facility] Comment on above: Performed By: #### 5 7021-8, 84101-3, 80528-5 #### [facility] [address] NUCLEATED RBC ABSOLUTE COUNT 0.00 x10*3/uL Normal [facility] Comment on above: Performed By: #### 5 7021-8, 24892-2, 75502-2 #### [facility] [address] Nucleated RBC/100 WBC (Bld) [Ratio] 0.0 % Normal [facility] Comment on above: Performed By: #### 5 7021-8, 04336-7, 81749-7 #### [facility] [address] PLATELET COUNT 430 x10*3/uL High 150-400 [facility] Comment on above: Performed By: #### 5 7021-8, 10203-0, 65020-7 #### [facility] [address] Platelet mean volume (Bld) [Entitic vol] 10.6 fL Normal 9.0-12.1 [facility] Comment on above: Performed By: #### 5 7021-8, 88115-8, 57835-5 #### [facility] [address] RED BLOOD COUNT 4.74 x10*6/uL Normal 3.8-6.0 [facility] Comment on above: Performed By: #### 5 7021-8, 77406-3, 65388-6 #### [facility] [address] RED CELL DISTRIBUTION WIDTH 46.0 fL Normal 36.7-49.4 [facility] Comment on above: Performed By: #### 5 7021-8, 30550-2, 90787-4 #### [facility] [address] [address] [place] WHITE BLOOD COUNT 22.93 X10*3/uL High 3.8-11.0 [facility] Comment on above: Performed By: #### 5 7021-8, 75798-0, 21820-7 #### [facility] [address] [address] [place] Differential panel (Body fld )on 12-18-2021 BANDS 2 % High 0-1 [facility] Comment on above: Performed By: #### 5 7021-8, 06360-5, 74777-7 #### [facility] [address] [address] [place] Basophils/100 WBC (Bld) 0 % Normal 0-1 [facility] Comment on above: Performed By: #### 5 7021-8, 19777-7, 23133-7 #### [facility] [address] [address] [place] Eosinophils/100 WBC (Bld) 1 % Normal 0-6 [facility] Comment on above: Performed By: #### 5 7021-8, 64073-9, 17450-5 #### [facility] [address] [address] [place] Lymphocytes/100 WBC (Bld) 25 % Low 38-46 [facility] Comment on above: Performed By: #### 5 7021-8, 65022-2, 59178-1 #### [facility] [address] [address] [place] Monocytes/100 WBC (Bld) 4 % Normal 2-10 [facility] Comment on above: Performed By: #### 5 7021-8, 27824-5, 52730-0 #### [facility] [address] [address] [place] Neutrophils/100 WBC (Bld) 62 % Normal 47-76 [facility] Comment on above: Performed By: #### 5 7021-8, 77054-5, 16631-4 #### [facility] [address] [address] [place] Variant lymphocytes/100 WBC (Bld) 6 % Normal [facility] Comment on above: Performed By: #### 5 7021-8, 94145-3, 93811-4 #### [facility] [address] Pathologist review of result son 12-18-2021 Pathologist review Armando (Unsp spec) [Interp] SEE COMMENT Normal [facility] Comment on above: Result Comment: Lymp hocytosis noted, favor reactive. If persistent, further investigation with flow cytometric analysis of peripheral blood is suggested for lymphocyte phenotyping in order to exclude a lymphoproliferative neoplasm. Reviewed by Dr. Kumar Performed By: #### 5 7021-8, 49686-1, 64419-0 #### [facility] [address] Urate [Mass/Vol]on 2 CNET-Uric Acid #URIC 6.7 MG/DL Normal 4.0-8.0 [facility] Comment on above: Result Comment: (NOT E) THERAPEUTIC TARGET FOR PATIENTS WITH GOUT: <6.0 TESTING PERFORMED BY: [facility] [address] [place] [address], CLIA [id number] Shelley SALGADO Performed By: #### 3 084-1 #### [facility] , Urate [Mass/volume] in Serum or Plasmaon 12-18-2021 Urate [Mass/Vol] Normal 3.8-7.1 [facility] Comment on above: Result Comment: SENT TO REFERENCE LAB DUE TO SUPPLY CHAIN ISSUES. ANOTHER TEST FOR SAME ANAYLTE WILL BE ORDERED AND RESULTED IN [facility]. Performed By: #### 5 7021-8, 71442-8, 16938-1 #### [facility] [address] AMB Office Visit Internal Me don 12-12-2021 AMB Office Visit Internal Med [place] [address] Medical Records Department AMB Office Visit Internal Med Name: MERI NOGUERA Sr. Pt Type: DEP AMB MR #: [id number] Room AND Bed: Date of : 1970 Date of Service: 12/12/21 Age: 51 Ordering Doctor: Sex: Male Family Doctor: Marie Mckenzie CNP Order #: Dictating Doctor: Marie Mckenzie CNP Admit Date: Referring Doctor: Other Doctor: Additional Copies: Marie Mckenzie CINDER BLOCK MASON === Chief Complaint Chief Complaint: * Patient [...] Physician History Physician Specialist Physician: Oswaldo Bonilla [facility] Medical History Anxiety disorder History of traumatic [...] 101 H (more content not included)... Normal [facility] Ambulatory Ankle Righton 12-04-2021 Ankle Right [place] [id number] Diagnostic Imaging Radiology Report Name: MERI NOGUERA Pt Type: DEP OUT MR #: [id number] Room & Bed: Date of : 1970 Date of Service: 12/03/21 Age: 51 Ordering Doctor: Marie Mckenzie CNP Sex: Male Family Doctor: Marie Mckenzie CNP Order #: [id number] Dictating Doctor: Anthony Jerez MD Admit Date: Referring Doctor: Other Doctor: Additional Copies: === WHRPT:HIE EXAM: Ankle Right INDICATION: M79.661 - Pain in right lower leg COMPARISON: None. TECHNIQUE: Radiographs as described above FINDINGS/IMPRESSION: No acute fracture or traumatic malalignment. Ankle mortise is intact. Mild soft tissue edema at the ankle. THIS REPORT HAS BEEN ELECTRONICALLY SIGNED BY: 12/04/2021 07:47: Anthony Jerez MD 12/04/21 0749 ---- DICTATED BY: Anthony Jerez MD CC: CONFIDENTIALITY NOTICE: This report is for the sole use of the intended recipient and may contain confidential and privileged information. Any unauthorized review, use, disclosure or distribution is prohibited. If you are not the intended recipient, please contact [facility] at [phone] and destroy all copies of the original. Normal [facility] Leg Lower Right 2 vwson 11-22 Leg Lower Right [address] [address] Diagnostic Imaging Radiology Report Name: MERI NOGUERA Pt Type: DEP OUT MR #: [id number] Room & Bed: Date of : 1970 Date of Service: 12/03/21 Age: 51 Ordering Doctor: Marie Mckenzie CNP Sex: Male Family Doctor: Marie Mckenzie CNP Order #: [id number] Dictating Doctor: Anthony Jerez MD Admit Date: Referring Doctor: Other Doctor: Additional Copies: === WHRPT:HIE EXAM: Leg Lower Right 2 vws INDICATION: M79.661 - Pain in right lower leg COMPARISON: None. TECHNIQUE: Radiographs as described above FINDINGS/IMPRESSION: No acute fracture or traumatic malalignment. No erosions or periosteal reaction. No degenerative changes. Normal soft tissues. THIS REPORT HAS BEEN ELECTRONICALLY SIGNED BY: 12/04/2021 07:48: Anthony Jerez MD 12/04/21 0750 ---- DICTATED BY: Anthony Jerez MD CC: CONFIDENTIALITY NOTICE: This report is for the sole use of the intended recipient and may contain confidential and privileged information. Any unauthorized review, use, disclosure or distribution is prohibited. If you are not the intended recipient, please contact [facility] at [phone] and destroy all copies of the original. Normal [facility] AMB Office Visit Internal Me don 12-03-2021 AMB Office Visit Internal Med [address] [address] Medical Records Department AMB Office Visit Internal Med Name: MERI NOGUERA Sr. Pt Type: DEP AMB MR #: [id number] Room AND Bed: Date of : 1970 Date of Service: 12/03/21 Age: 51 Ordering Doctor: Sex: Male Family Doctor: Marie Mckenzie CNP Order #: Dictating Doctor: Marie Mckenzie CNP Admit Date: Referring Doctor: Other Doctor: Additional Copies: Marie Mckenzie C[employer]ON === Chief Complaint Chief Complaint: Patient here [...] Physician History Physician Specialist Physician: Oswaldo Bonilla [facility] Medical History Anxiety disorder History of traumatic [...] (2) P (more content not included)... Normal [facility] Ambulatory AMB Office Visit Internal Me don 11-28-2021 AMB Office Visit Internal Med [place] [id number] Medical Records Department AMB Office Visit Internal Med Name: MERI NOGUERA Pt Type: TASHA HOUGH MR #: [id number] Room AND Bed: Date of : 1970 Date of Service: 11/28/21 Age: 51 Ordering Doctor: Sex: Male Family Doctor: Marie Mckenzie CNP Order #: Dictating Doctor: Marie Mckenzie CNP Admit Date: Referring Doctor: Other Doctor: Additional Copies: Marie Mckenzie [employer] === Chief Complaint Chief Complaint: Patient is [...] for ER follow-up. He was seen on November 23 in ER for right lower leg pain [...] No Physician History Physician Specialist Physician: Oswaldo oBnilla [facility] Medical History Anxiety disorder History of traumatic [...] BP 118/80 (more content not included)... Normal [facility] BASIC METABOLIC PANELon 09 Anion gap [Moles/Vol] 11 mmol/L Normal 10-20 [facility] Comment on above: Performed By: #### M PB #### [facility] [address] Calcium [Mass/Vol] 8.8 mg/dL Normal 8.7-10.5 [facility] Comment on above: Performed By: #### M PB #### [facility] [address] Chloride [Moles/Vol] 105 mmol/L Normal 99-111 [facility] Comment on above: Performed By: #### M PB #### [facility] [address] CO2 [Moles/Vol] 29 mmol/L Normal 21.0-32.0 [facility] Comment on above: Performed By: #### M PB #### [facility] [address] Creatinine [Mass/Vol] 0.8 mg/dL Normal 0.6-1.3 [facility] Comment on above: Performed By: #### M PB #### [place] [address] [place] GFR/1.73 sq M.predicted among non-blacks MDRD (S/P/Bld) [Vol rate/Area] 107 mL/min/{1.73_m2} Normal >59 [facility] Comment on above: Performed By: #### M PB #### [facility] [place] [address] Glucose [Mass/Vol] 92 mg/dL Normal 70-100 [facility] Comment on above: Performed By: #### M PB #### [facility] [address] Potassium [Moles/Vol] 3.9 mmol/L Normal 3.5-5.0 [facility] Comment on above: Performed By: #### M PB #### [facility] [address] Sodium [Moles/Vol] 141 mmol/L Normal 137-147 [facility] Comment on above: Performed By: #### M PB #### [facility] [address] Urea nitrogen [Mass/Vol] 9 mg/dL Normal 7-22 [facility] Comment on above: Performed By: #### M PB #### [facility] [address] Urea nitrogen/Creatinine [Mass ratio] 11.3 mg/mg Normal 6-25 [facility] Comment on above: Performed By: #### M PB #### [facility] [address] CBC W Auto Differential pane l (Bld)on 11-23-2021 BASOPHIL ABSOLUTE COUNT 0.12 x10*3/uL High 0.0-0.1 [facility] Comment on above: Performed By: #### 5 7021-8, 78486-4, 17525-6 #### [facility] [address] Basophils/100 WBC (Bld) 0.8 % Normal 0.0-1.1 [facility] Comment on above: Performed By: #### 5 7021-8, 10163-1, 34693-3 #### [facility] [address] EOS ABSOLUTE COUNT 0.50 x10*3/uL Normal 0.0-0.5 [facility] Comment on above: Performed By: #### 5 7021-8, 08685-7, 58325-2 #### [facility] [address] Eosinophils/100 WBC (Bld) 3.2 % Normal 0.0-6.0 [facility] Comment on above: Performed By: #### 5 7021-8, 84526-6, 90270-4 #### [facility] [address] Hematocrit (Bld) [Volume fraction] 37.8 % Normal 35.0-49.0 [facility] Comment on above: Performed By: #### 5 7021-8, 25287-4, 89385-8 #### [facility] [address] Hemoglobin (Bld) [Mass/Vol] 12.9 g/dL Normal 11.5-17.0 [facility] Comment on above: Performed By: #### 5 70-8, 39359-0, 18959-3 #### [facility] [address] IMMATURE GRAN ABSOLUTE COUNT 0.04 x10*3/uL Normal 0.0-0.5 [facility] Comment on above: Performed By: #### 5 70-8, 18341-4, 46776-6 #### [facility] [address] Immature granulocytes/100 WBC (Bld) 0.3 % Normal 0.0-2.99 [facility] Comment on above: Performed By: #### 5 7021-8, 00644-8, 11703-6 #### [facility] [address] LYMPHOCYTE ABSOLUTE COUNT 3.69 x10*3/uL High 0.5-3.2 [facility] Comment on above: Performed By: #### 5 7021-8, 45112-8, 46326-7 #### [facility] [address] Lymphocytes/100 WBC (Bld) 23.9 % Normal 13.0-39.0 [facility] Comment on above: Performed By: #### 5 7021-8, 52080-9, 09058-6 #### [facility] [address] MCH (RBC) [Entitic mass] 31.6 pg Normal 26.0-33.0 [facility] Comment on above: Performed By: #### 5 7021-8, 39232-5, 46036-8 #### [facility] [address] MCV (RBC) [Entitic vol] 92.6 fL Normal 81.0-98.0 [facility] Comment on above: Performed By: #### 5 7021-8, 70970-7, 50069-6 #### [facility] [address] MEAN CORPUSCULAR HGB CONC 34.1 g/dl Normal 31.0-35.0 [facility] Comment on above: Performed By: #### 5 70-8, 99666-5, 59971-7 #### [facility] [address] MONOCYTE ABSOLUTE COUNT 2.05 x10*3/uL High 0.0-1.0 [facility] Comment on above: Performed By: #### 5 70-8, 72270-6, 73304-5 #### [facility] [address] Monocytes/100 WBC (Bld) 13.3 % High 4.0-13.0 [facility] Comment on above: Performed By: #### 5 7021-8, 05046-5, 85817-9 #### [facility] [address] NEUTROPHIL COUNT ABSOLUTE 9.01 x10*3/uL High 1.5-6.2 [facility] Comment on above: Performed By: #### 5 7021-8, 81588-3, 05134-4 #### [facility] [address] Neutrophils/100 WBC (Bld) 58.5 % Normal 47.0-76.0 [facility] Comment on above: Performed By: #### 5 7021-8, 32922-2, 03772-1 #### [facility] [address] NUCLEATED RBC ABSOLUTE COUNT 0.00 x10*3/uL Normal [facility] Comment on above: Performed By: #### 5 7021-8, 98504-7, 76865-5 #### [facility] [address] Nucleated RBC/100 WBC (Bld) [Ratio] 0.0 % Normal [facility] Comment on above: Performed By: #### 5 7021-8, 43382-8, 30184-0 #### [facility] [address] PLATELET COUNT 427 x10*3/uL High 150-400 [facility] Comment on above: Performed By: #### 5 7021-8, 56494-6, 71093-2 #### [facility] [address] Platelet mean volume (Bld) [Entitic vol] 9.0 fL Normal 9.0-12.1 [facility] Comment on above: Performed By: #### 5 7021-8, 41705-4, 86180-4 #### [facility] [address] RED BLOOD COUNT 4.08 x10*6/uL Normal 3.8-6.0 [facility] Comment on above: Performed By: #### 5 7021-8, 32321-0, 19590-3 #### [facility] [address] RED CELL DISTRIBUTION WIDTH 46.7 fL Normal 36.7-49.4 [facility] Comment on above: Performed By: #### 5 7021-8, 00778-2, 30650-1 #### [facility] [address] WHITE BLOOD COUNT 15.41 X10*3/uL High 3.8-11.0 [facility] Comment on above: Performed By: #### 5 7021-8, 05350-5, 93684-6 #### [facility] [address] Differential panel (Body fld )on 11-23-2021 BANDS 0 % Normal 0-1 [facility] Comment on above: Performed By: #### 5 7021-8, 76644-7, 30436-6 #### [facility] [address] [address] [place] Basophils/100 WBC (Bld) 0 % Normal 0-1 [facility] Comment on above: Performed By: #### 5 7021-8, 54865-6, 59519-7 #### [facility] [address] [address] [place] Eosinophils/100 WBC (Bld) 3 % Normal 0-6 [facility] Comment on above: Performed By: #### 5 7021-8, 30509-9, 75200-4 #### [facility] [address] [address] [place] Lymphocytes/100 WBC (Bld) 24 % Low 38-46 [facility] Comment on above: Performed By: #### 5 70-8, 16339-9, 35380-2 #### [facility] [address] [address] [place] Monocytes/100 WBC (Bld) 7 % Normal 2-10 [facility] Comment on above: Performed By: #### 5 70-8, 12416-2, 96790-2 #### [facility] [address] [address] [place] MYELOCYTE 1 % Normal [facility] Comment on above: Performed By: #### 5 7021-8, 22716-1, 05445-6 #### [facility] [address] [address] [place] Neutrophils/100 WBC (Bld) 62 % Normal 47-76 [facility] Comment on above: Performed By: #### 5 7021-8, 27303-2, 34340-0 #### [facility] [address] [address] [place] Variant lymphocytes/100 WBC (Bld) 3 % Normal [facility] Comment on above: Performed By: #### 5 7021-8, 25617-2, 57601-0 #### [facility] [address] Pathologist review of result son 11-23-2021 Pathologist review Armando (Unsp spec) [Interp] * Normal [facility] Comment on above: Result Comment: Niurka campbell with reported results. Reviewed by [facility] Performed By: #### 5 7021-8, 82904-3, 54962-6 #### [facility] [address] Physician Documentationon Physician Documentation [place] [address] Medical Records Department ED Physician Documentation Name: MERI NOGUERA Sr. Pt Type: DEP ER MR #: [id number] Room AND Bed: Date of : 1970 [...] Blood Pres (more content not included)... Normal [facility] US Venous Duplex Uni Leg RTo n 11-23-2021 US Venous Duplex Uni Leg RT [place] [address] Diagnostic Imaging Ultrasound Report Name: MERI NOGUERA Sr. Pt Type: REG ER MR #: [id number] Room & Bed: Date of : 1970 Date of Service: 11/23/21 Age: 51 Ordering Doctor: Florinda Guillory CNP Sex: Male Family Doctor: Marie Mckenzie [employer] [place] Order #: [id number] Dictating Doctor: Abisai Mchugh MD Admit Date: [...] are not the intended recipient, please contact [facility] at [phone] and destroy all copies of the original. Normal [facility] AMB Office Visit Internal Me don 10-08-2021 AMB Office Visit Internal Med [place] [address] Medical Records Department AMB Office Visit Internal Med Name: MERI NOGUERA Pt Type: DEP AMB MR #: [id number] Room AND Bed: Date of : 1970 [...] and colleagues, with an educational damian from [employer]. COVID-19 Patient Screening COVID-19 Screening Contact with COVID positive or high risk person(s): No COVID-19 Symptoms: No Physician History Physician Specialist Physician: Oswaldo Bonilla [facility] Medical History Anxiety disorder History of traumatic [...] concentrating, Denie (more content not included)... Normal [facility] AMB Office Visit Internal Me don 09-10-2021 AMB Office Visit Internal Med [place] [address] Medical Records Department AMB Office Visit Internal Med Name: CHUCKIEMERI Mark Jackson Type: DEP AMB MR #: [id number] Room AND Bed: Date of : 1970 [...] associated with ADD. He also wonders about [employer] Marijuana program. Intake Intake Intake Have you [...] by Drs. Benny Gorman, Ester Grey, Gal rCuz and colleagues, with an educational damian from [employer]. COVID-19 Patient Screening COVID-19 Screening Contact with [...] Denies headache(s) (more content not included)... Normal [facility] AMB Office Visit Internal Me don 06-11-2021 AMB Office Visit Internal Med [address] [address] Medical Records Department AMB Office Visit Internal Med Name: MERI NOGUERA Pt Type: DEP AMB MR #: [id number] Room AND Bed: Date of : 1970 [...] and colleagues, with an educational damian from [employer]. COVID-19 Patient Screening COVID-19 Screening Contact with COVID positive or high risk person(s): No COVID-19 Symptoms: No Physician History Physician Specialist Physician: Oswaldo Bonilla [facility] Medical History Anxiety disorder History of traumatic [...] carbonated be (more content not included)... Normal [facility] AMB Office Visit Internal Pa don 03-12-2021 AMB Office Visit Internal Med [place] [address] Medical Records Department AMB Office Visit Internal Med Name: MERI NOGUERA Pt Type: DEP AMB MR #: [id number] Room AND Bed: Date of : 1970 Date of Service: 03/12/21 Age: 50 Ordering Doctor: Sex: Male Family Doctor: Diana Peoples MD Order #: Dictating Doctor: Marie Mckenzie [employer] [place] Admit Date: Referring Doctor: Other Doctor: Additional [...] Denies eas (more content not included)... Normal [facility] AMB Office Visit Internal Me don 02-12-2021 AMB Office Visit Internal Med [place] [address] Medical Records Department AMB Office Visit Internal Med Name: CHUCKIEMERI Mark Pt Type: DEP AMB MR #: [id number] Room AND Bed: Date of : 1970 [...] TM's normal (more content not included)... Normal [facility] BASIC METABOLIC PANELon 04-24 Anion gap [Moles/Vol] 10 mmol/L Normal -15 [facility] Comment on above: Performed By: #### L AB119 #### [place] [address] BUN/CREAT RATIO 12 (CALC) Normal 7.0-25.[address] [facility] Comment on above: Performed By: #### L AB119 #### [place] [address] Calcium [Mass/Vol] 8.0 mg/dL Low 8.5-10.5 [facility] Comment on above: Performed By: #### L AB119 #### [place] [address] Chloride [Moles/Vol] 105 mmol/L Normal 96-110 [facility] Comment on above: Performed By: #### L AB119 #### [place] [address] CO2 [Moles/Vol] 21 mmol/L Normal 19-[address] [facility] Comment on above: Performed By: #### L AB119 #### [place] [address] Creatinine [Mass/Vol] 0.9 mg/dL Normal 0.5-1.4 [facility] Comment on above: Performed By: #### L AB119 #### [place] [address] ESTIMATED GFR 99 ML/MIN/1.73M2 Normal [facility] Comment on above: Result Comment: IF THE PATIENT IS , PLEASE MULTIPLY THIS BY 1.159. THIS RESULT HAS BEEN CALCULATED ASSUMING THE PATIENT IS NON- Performed By: #### L AB119 #### [place] [address] Glucose [Mass/Vol] 126 mg/dL High 70-99 [facility] Comment on above: Performed By: #### L AB119 #### [place] [address] Potassium [Moles/Vol] 4.5 mmol/L Normal 3.4-5.3 [facility] Comment on above: Performed By: #### L AB119 #### [place] [address] Sodium [Moles/Vol] 136 mmol/L Normal 135-148 [facility] Comment on above: Performed By: #### L AB119 #### [place] [address] Urea nitrogen [Mass/Vol] 11 mg/dL Normal 3-29 [facility] Comment on above: Performed By: #### L AB119 #### [place] [address] COMPLETE BLOOD COUNTon 05-09 Erythrocyte distribution width (RBC) [Ratio] 14.3 % Normal 9.0-15.0 [facility] Comment on above: Performed By: #### L AB119 #### [place] [address] Hematocrit (Bld) [Volume fraction] 34.8 % Low 41.0-50.0 [facility] Comment on above: Performed By: #### L AB119 #### [place] [address] Hemoglobin (Bld) [Mass/Vol] 11.9 g/dL Low 13.8-17.2 [facility] Comment on above: Performed By: #### L AB119 #### [place] [address] MCH (RBC) [Entitic mass] 30.4 pg Normal 27.0-33.0 [facility] Comment on above: Performed By: #### L AB119 #### [place] [address] MCHC (RBC) [Mass/Vol] 34.0 g/dL Normal 32.0-36.0 [facility] Comment on above: Performed By: #### L AB119 #### [place] [address] MCV (RBC) [Entitic vol] 89.4 fL Normal 80.0-100.0 [facility] Comment on above: Performed By: #### L AB119 #### [place] [address] Platelets (Bld) [#/Vol] 168 10*3/uL Normal 130-400 [facility] Comment on above: Performed By: #### L AB119 #### [place] [address] RBC COUNT 3.90 M/MM3 Low 4.40-5.80 [facility] Comment on above: Performed By: #### L AB119 #### [place] [address] WBC (Bld) [#/Vol] 19.5 10*3/uL High 3.8-10.8 [facility] Comment on above: Performed By: #### L AB119 #### [place] [address] DRUG SCREEN, URINEon 021 AMPHETAMINE, URINE Not detected Normal [facility] Comment on above: Performed By: #### L AB119 #### [place] [address] BARBITURATES, URINE Not detected Normal [facility] Comment on above: Performed By: #### L AB119 #### [place] [address] BENZODIAZEPINE, URINE Positive Abnormal [facility] Comment on above: Performed By: #### L AB119 #### [place] [address] COCAINE, URINE Not detected Normal NONDT [facility] Comment on above: Performed By: #### L AB119 #### [place] [address] COMMENT, URINE DRUG SCREEN Normal [facility] Comment on above: Result Comment: The [...] and/or metabolites are present. Test performed at [employer] [place], [place] Performed By: #### L AB119 #### [place] [address] OPIATES, URINE Not detected Normal [facility] Comment on above: Performed By: #### L AB119 #### [place] [address] THC Not detected Normal [facility] Comment on above: Performed By: #### L AB119 #### [place] [address] SARS COV 2 RNA, QL REAL TIME RT PCRon 05-09-2020 SARS-CoV-2 (COVID-19) RNA ARAVIND+probe Ql (Unsp spec) Not detected Normal [facility] Comment on above: Result Comment: Refe rence Range = NOT DETECTED Performed By: #### L AB119 #### [place] [address] SARS-CoV-2 (COVID-19) RNA ARAVIND+probe Ql (Unsp spec) (NOTE) Normal [facility] Comment on above: Result Comment: The [...] 2019. Performed By: #### L AB119 #### [place] [address] URINALYSISon 05-09-2020 Appearance (U) CLEAR Normal [facility] Comment on above: Performed By: #### L AB119 #### [place] [address] BACTERIA, URINE NONE SEEN Normal NS [facility] Comment on above: Performed By: #### L AB119 #### [place] [address] BILIRUBIN, URINE Negative Normal NEG [facility] Comment on above: Performed By: #### L AB119 #### [place] [address] BLOOD, URINE Negative Normal NEG [facility] Comment on above: Performed By: #### L AB119 #### [address] Color (U) Normal [facility] Comment on above: Result Comment: SIENNA SKY Reference Range: Yellow and Colorless Performed By: #### L AB119 #### [place] [address] Glucose Ql (U) Negative Normal NEG [facility] Comment on above: Performed By: #### L AB119 #### [place] [address] HYALINE CAST Normal U05 [facility] Comment on above: Result Comment: 0-5 REFERENCE RANGE: 0-5 HYALINE CASTS NONE SEEN FOR NON HYALINE CASTS Performed By: #### L AB119 #### [place] [address] KETONE, URINE Negative Normal NEG [facility] Comment on above: Performed By: #### L AB119 #### [place] [address] LEUKOCYTES, URINE Negative Normal NEG [facility] Comment on above: Performed By: #### L AB119 #### [place] [address] MUCUS, URINE PRESENT Normal [facility] Comment on above: Performed By: #### L AB119 #### [place] [address] NITRITES, URINE Negative Normal NEG [facility] Comment on above: Performed By: #### L AB119 #### [place] [address] pH (U) 6.0 [pH] Normal 4.5-8.0 [facility] Comment on above: Performed By: #### L AB119 #### [place] [address] Protein (U) [Mass/Vol] 10 mg/dL Abnormal NEG [facility] Comment on above: Performed By: #### L AB119 #### [place] [address] RBC, URINE 6-10 Abnormal U02 [facility] Comment on above: Performed By: #### L AB119 #### [place] [address] RENAL EPITHELIAL CELLS, URINE 0-[address] [place] [address] Comment on above: Performed By: #### L AB119 #### [place] [address] SPECIFIC GRAVITY, URINE 1.040 High 1.005-1.030 [facility] Comment on above: Result Comment: Urin e specific gravity may be affected by X-ray dye, high glucose, high protein, and some chemotherapeutic drugs. Clinical correlation is recommended. Performed By: #### L AB119 #### [place] [address] SQUAMOUS EPITHEAL CELLS, URINE 0-5 Normal U05 [facility] Comment on above: Performed By: #### L AB119 #### [place] [address] UROBILINOGEN, URINE <2 Normal <2 [facility] Comment on above: Performed By: #### L AB119 #### [place] [address] WBC, URINE 0-5 Normal U05 [facility] Comment on above: Performed By: #### L AB119 #### [place] [address] ACTIVATED PARTIAL THROMBOPLA STIN TIMEon 05-08-2020 aPTT Coag (Bld) [Time] 26.0 s Normal 24.5-35.2 [facility] Comment on above: Performed By: #### L AB119 #### [place] [address] BASIC METABOLIC PANELon 04-24 Anion gap [Moles/Vol] 11 mmol/L Normal 5-15 [facility] Comment on above: Performed By: #### L AB064 #### [place] [address] BUN/CREAT RATIO 10 (CALC) Normal 7.0-25.[address] [facility] Comment on above: Performed By: #### L AB064 #### [place] [address] Calcium [Mass/Vol] 7.4 mg/dL Low 8.5-10.5 [facility] Comment on above: Performed By: #### L AB064 #### [place] [address] Chloride [Moles/Vol] 103 mmol/L Normal 96-110 [facility] Comment on above: Performed By: #### L AB064 #### [place] [address] CO2 [Moles/Vol] 20 mmol/L Normal 19-[address] [facility] Comment on above: Performed By: #### L AB064 #### [place] [address] Creatinine [Mass/Vol] 1.0 mg/dL Normal 0.5-1.4 [facility] Comment on above: Performed By: #### L AB064 #### [place] [address] ESTIMATED GFR 87 ML/MIN/1.73M2 Normal [facility] Comment on above: Result Comment: IF THE PATIENT IS , PLEASE MULTIPLY THIS BY 1.159. THIS RESULT HAS BEEN CALCULATED ASSUMING THE PATIENT IS NON- Performed By: #### L AB064 #### [place] [address] Glucose [Mass/Vol] 206 mg/dL High 70-99 [facility] Comment on above: Performed By: #### L AB064 #### [place] [address] Potassium [Moles/Vol] 4.8 mmol/L Normal 3.4-5.3 [facility] Comment on above: Result Comment: HEMO LYZED POTASSIUM RESULTS ARE ELEVATED BY SPECIMEN HEMOLYSIS Performed By: #### L AB064 #### [place] [address] Sodium [Moles/Vol] 134 mmol/L Low 135-148 [facility] Comment on above: Performed By: #### L AB064 #### [place] [address] Urea nitrogen [Mass/Vol] 10 mg/dL Normal 3-29 [facility] Comment on above: Performed By: #### L AB064 #### [place] [address] COMPLETE BLOOD COUNTon 05-08 Erythrocyte distribution width (RBC) [Ratio] 14.0 % Normal 9.0-15.0 [facility] Comment on above: Performed By: #### L AB119 #### [place] [address] Hematocrit (Bld) [Volume fraction] 40.4 % Low 41.0-50.0 [facility] Comment on above: Performed By: #### L AB119 #### [place] [address] Hemoglobin (Bld) [Mass/Vol] 13.7 g/dL Low 13.8-17.2 [facility] Comment on above: Performed By: #### L AB119 #### [place] [address] MCH (RBC) [Entitic mass] 30.4 pg Normal 27.0-33.0 [facility] Comment on above: Performed By: #### L AB119 #### [place] [address] MCHC (RBC) [Mass/Vol] 33.9 g/dL Normal 32.0-36.0 [facility] Comment on above: Performed By: #### L AB119 #### [place] [address] MCV (RBC) [Entitic vol] 89.9 fL Normal 80.0-100.0 [facility] Comment on above: Performed By: #### L AB119 #### [place] [address] Platelets (Bld) [#/Vol] 164 10*3/uL Normal 130-400 [facility] Comment on above: Performed By: #### L AB119 #### [place] [address] RBC COUNT 4.49 M/MM3 Normal 4.40-5.80 [facility] Comment on above: Performed By: #### L AB119 #### [place] [address] WBC (Bld) [#/Vol] 16.8 10*3/uL High 3.8-10.8 [facility] Comment on above: Performed By: #### L AB119 #### [place] [address] COMPLETE BLOOD COUNT WITH DI FFERENTIALon 05-08-2020 ABSOLUTE BASOPHIL 0.1 K/MM3 Normal 0.0-0.3 [facility] Comment on above: Performed By: #### L AB119 #### [place] [address] ABSOLUTE SEGMENTED NEUTROPHIL 13.5 K/MM3 High 1.5-7.8 [facility] Comment on above: Performed By: #### L AB119 #### [place] [address] Basophils/100 WBC (Bld) 0.3 % Normal 0.0-2.0 [facility] Comment on above: Performed By: #### L AB119 #### [place] [address] Eosinophils (Bld) [#/Vol] 0.0 10*3/uL Normal 0.0-0.6 [facility] Comment on above: Performed By: #### L AB119 #### [place] [address] Eosinophils/100 WBC (Bld) 0.1 % Normal 0.0-7.0 [facility] Comment on above: Performed By: #### L AB119 #### [place] [address] Erythrocyte distribution width (RBC) [Ratio] 13.8 % Normal 9.0-15.0 [facility] Comment on above: Performed By: #### L AB119 #### [place] [address] Hematocrit (Bld) [Volume fraction] 39.7 % Low 41.0-50.0 [facility] Comment on above: Performed By: #### L [id number] #### [place] [address] Hemoglobin (Bld) [Mass/Vol] 13.2 g/dL Low 13.8-17.2 [facility] Comment on above: Performed By: #### L [id number] #### [place] [address] Lymphocytes (Bld) [#/Vol] 1.0 10*3/uL Normal 0.9-4.1 [facility] Comment on above: Performed By: #### L [id number] #### [place] [address] Lymphocytes/100 WBC (Bld) 6.4 % Low 18.0-47.0 [facility] Comment on above: Performed By: #### L [id number] #### [place] [address] MCH (RBC) [Entitic mass] 30.4 pg Normal 27.0-33.0 [facility] Comment on above: Performed By: #### L [id number] #### [place] [address] MCHC (RBC) [Mass/Vol] 33.2 g/dL Normal 32.0-36.0 [facility] Comment on above: Performed By: #### L [id number] #### [place] [address] MCV (RBC) [Entitic vol] 91.6 fL Normal 80.0-100.0 [facility] Comment on above: Performed By: #### L [id number] #### [place] [address] Monocytes (Bld) [#/Vol] 1.3 10*3/uL High 0.2-1.1 [facility] Comment on above: Performed By: #### L [id number] #### [place] [address] Monocytes/100 WBC (Bld) 8.1 % Normal 0-14.0 [facility] Comment on above: Performed By: #### L [id number] #### [place] [address] Platelets (Bld) [#/Vol] 187 10*3/uL Normal 130-400 [facility] Comment on above: Performed By: #### L [id number] #### [place] [address] RBC COUNT 4.34 M/MM3 Low 4.40-5.80 [facility] Comment on above: Performed By: #### L [id number] #### [place] [address] Segmented neutrophils/100 WBC (Bld) 85.1 % High 40.0-75.0 [facility] Comment on above: Performed By: #### L [id number] #### [place] [address] WBC (Bld) [#/Vol] 15.9 10*3/uL High 3.8-10.8 [facility] Comment on above: Performed By: #### L [id number] #### [place] [address] ETHANOLon 05-08-2020 Ethanol [Mass/Vol] Not detected Normal NONDT [facility] Comment on above: Performed By: #### L [id number] #### [place] [address] HEMOGLOBIN AND HEMATOCRITon 05-08-2020 Hematocrit (Bld) [Volume fraction] 37.0 % Low 41.0-50.0 [facility] Comment on above: Performed By: #### L [id number] #### [place] [address] Hemoglobin (Bld) [Mass/Vol] 12.5 g/dL Low 13.8-17.2 [facility] Comment on above: Performed By: #### L AB236 #### [place] [address] LACTIC ACIDon 05-08-2020 Lactate [Moles/Vol] 4.0 mmol/L High 0.5-2.2 [facility] Comment on above: Result Comment: Per the request of [facility] [place] and approval by the [facility] Nursing Administrator and Medical Executive Committee, this critical value was not called to the caregiver. (NOTE) If ruling out sepsis: Result >2.0 meets criteria for severe sepsis, recommend repeat testing to rule out sepsis. Result >=4.0 meets criteria for septic shock. Performed By: #### L [id number] #### [place] [address] PREPARE RED BLOOD CELLSon PREPARE RED BLOOD CELLS UNIT PRODUCT CODE: [id number] PREPARE RED BLOOD CELLS: RED BLOOD CELLS, CPD>AS1, LEUKOCYTES REDUCED UNIT ID: [id number] UNIT ABO: O UNIT RH: POSITIVE UNIT DISPENSE STATUS: Emergency Issue UNIT EXPIRATION DATE: UNIT BLOOD TYPE: 5100 BLOOD CODING SYS: ISBT 128 [facility] Comment on above: Performed By: #### L [id number] #### [place] [address] PREPARE RED BLOOD CELLS UNIT PRODUCT CODE: [id number] PREPARE RED BLOOD CELLS: RED BLOOD CELLS, CPD>AS1, LEUKOCYTES REDUCED UNIT ID: [id number] UNIT ABO: O UNIT RH: POSITIVE UNIT DISPENSE STATUS: Emergency Issue UNIT EXPIRATION DATE: UNIT BLOOD TYPE: 5100 BLOOD CODING SYS: ISBT 128 [facility] Comment on above: Performed By: #### L [id number] #### [place] [address] PREPARE RED BLOOD CELLS UNIT PRODUCT CODE: [id number] PREPARE RED BLOOD CELLS: RED BLOOD CELLS, CPD>AS1, LEUKOCYTES REDUCED UNIT ID: [id number] UNIT ABO: O UNIT RH: POSITIVE UNIT INTERPRETATION: Compatible UNIT DISPENSE STATUS: Presumed Transfused UNIT EXPIRATION DATE: UNIT BLOOD TYPE: 5100 BLOOD CODING SYS: ISBT 128 UNIT PRODUCT CODE: [id number] PREPARE RED BLOOD CELLS: RED BLOOD CELLS, CPD>AS1, LEUKOCYTES REDUCED UNIT ID: [id number] UNIT ABO: O UNIT RH: POSITIVE UNIT INTERPRETATION: Compatible UNIT DISPENSE STATUS: Presumed Transfused UNIT EXPIRATION DATE: UNIT BLOOD TYPE: 5100 BLOOD CODING SYS: ISBT 128 Normal [facility] Comment on above: Performed By: #### L [id number] #### [place] [address] PROTHROMBIN TIMEon INR Coag (PPP) [Relative time] 1.2 {INR} High 0.9-1.1 [facility] Comment on above: Result Comment: MODERATE-INTENSITY WARFARIN THERAPY: 2.0-3.0 HIGHER-INTENSITY WARFARIN THERAPY: 3.0-4.0 Performed By: #### L [id number] #### [place] [address] PT Coag (PPP) [Time] 15.3 s High 11.7-13.9 [facility] Comment on above: Performed By: #### L [id number] #### [place] [address] SURGICAL PATHOLOGYon 021 SURGICAL PATHOLOGY SURGICAL PATHOLOGY REPORT Path #: [id number] Patient : MERI NOGUERA #: [id number] Date: 05/09/2020 Pre Op Diagnosis Splenic laceration [...] is an area of focal hemorrhage present. 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 Note that the section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
[2023-04-23 14:13] LABS: Thyroid Stimulating Hormone 1.835 uIU/mL (0.358-3.740)
== END 2023-04-23 11:28 | disposition home or self-care (01) ==
LOC: LAB 11:28
PROVIDERS: PCP Family Medicine
DX: R41.89 Other symptoms and signs involving cognitive functions and awareness (principal)
CPT/HCPCS: 36415; 82607; 84443

== ENCOUNTER 2023-06-17 10:05 | Outpatient (OUT) | payer OTHER, SELFPAY ==
--- OUTSIDE RECORDS SUMMARY | 2023-06-17 10:25 | XMS_ITS | CCD ---
Author Organization [facility] Care Team Providers Care Company Doctor Name Role Phone YONY TAN Unavailable Unavailable No Family, Physician Unavailable Unavailable BARBARA KOROMA Unavailable Unavailable No Family, Physician Unavailable Unavailable Ele Peoples Family Provider [phone] Claudia Mckenzie Primary Care Provider Claudia Mckenzie Attending Provider Ele Peoples Family Provider [phone] Claudia Mck[employer] Primary Care Provider Claudia [employer] Attending Provider [phone] Diana Peoples Consulting Unavailable MckenzieMarie Attending Unavailable Mckenzie, Marie Magno. Primary Care Unavailable Diana Peoples Consulting Unavailable Mckenzie, Marie Ai Primary Care Unavailable Mckenzie, Marie K. Attending [...] Unavailable MONICA BARRERA Primary Care Physician MELANY Avery Attending Provider Unavailable MD Monica Barrera Primary Care Provider Monica Barrera Primary Care Unavailable Noelle Avery Attending Unavailable Noelle Avery Admitting Unavailable NONE, XXXX Referring Unavailable Zeb Delarosa Attending Unavaila Zeb Rivera Attending Unavaila ble NONE, XXXX Referring Unavailable Zeb Delarosa Attending Unavaila NOELLE Harley Referring Unavail able Zeb Delarosa Admitting Unavaila ble Zeb Delarosa Referring Unavaila ble Zeb Delarosa Attending Unavaila Zeb Rivera Consulting Unavaila ble Zeb Delarosa Admitting Unavaila ble Zeb Delarosa Referring Unavaila Zeb Rivera Attending Unavaila Zeb Rivera Consulting Unavaila ble Zeb Delarosa Consulting Unavaila ashley Allergies Allergy Classification Reported Allergen(s) Allergy Type Date of Onset Reaction(s) Facility (1 source) Unable to Assess Drug allergy (disorder) [address] [place] [address] Repository (1 source) No Known Medication Allergies; Translations: [No Known Medication Allergies] Propensity to adverse reactions (disorder) [facility] Repository Medications Current Medications Medication Drug Class(es) Dates Sig (Normalized) Sig (Original) Tylenol (5 sources) Start: 03-20-2023 Tylenol Refills(s) 0 Start Date: 03/20/23 Status: Ordered Albuterol (8 sources) beta2-Adrenergic Agonist Start: 03-20-2023 albuterol Refills(s) 0 Start Date: 03/20/23 Status: Ordered take 2 puff(s) by in halation every four hours as needed Albuterol Sulfate HFA 108 (90 Base) MCG/ACT 2 puff Inhalation every 4 hrs prn Active apixaban 5 mg oral tablet (2 sources) Factor Xa Inhibitor Start: 05-05-2023 take 1 tablet by mouth twice daily Eliquis 5 mg oral tablet 5 mg = 1 tab(s), Oral, BID, # 60 tab(s), Refills(s) 3, Pharmacy: [facility]/pharmacy #[id number], 178, cm, 05/02/23 13:12:00 EST, Height/Length Dosing, 102, kg, 05/02/23 13:12:00 EST, Weight Dosing Start Date: 05/05/23 Status: Ordered aspirin 81 mg chewable tablet (3 sources) Platelet Aggregation Inhibitor, Nonsteroidal Anti-inflammatory Drug [...] daily at HS x1 week then bid carvedilol 3.125 mg oral tablet (2 sources) alpha-Adrenergic Larry, beta-Adrenergic Larry Start: 05-05-2023 take 1 tablet by mouth twice daily carvedilol 3.125 mg Tab 3.125 mg = 1 tab(s), Oral, BID, # 60 tab(s), Refills(s) 3, Pharmacy: [facility]/pharmacy #[id number], 178, cm, 05/02/23 13:12:00 EST, Height/Length Dosing, 102, kg, 05/02/23 13:12:00 EST, Weight Dosing Start Date: 05/05/23 Status: Ordered Start: 05-05-2023 take 1 tablet by sabrina th twice daily carvedilol 3.125 mg Tab 3.125 mg = 1 tab(s), Oral, BID, # 60 tab(s), Refills(s) 3, Pharmacy: [facility]/pharmacy #[id number], 178, cm, 05/02/23 13:12:00 EST, Height/Length Dosing, 102, kg, 05/02/23 13:12:00 EST, Weight Dosing Start Date: 05/05/23 Status: Ordered gabapentin 100 mg oral capsule (3 sources) Anti-epileptic Agent Start: 03-20-2023 gabapenti n 100 mg Cap Refills(s) 0 Start Date: 03/20/23 Status: Ordered losartan potassium 50 mg oral tablet (3 sources) Angiotensin 2 Receptor Larry Start: 05-30-2023 take 1 tablet by mouth once daily losartan 50 mg Tab 50 mg = 1 tab(s), Oral, Daily, # 30 tab(s), Refills(s) 6, Pharmacy: [facility]/pharmacy #[id number], 178, cm, 05/30/23 15:00:00 EST, Height/Length Dosing, 101.3, kg, 05/30/23 15:00:00 EST, Weight Dosing Start Date: 05/30/23 Status: Ordered Start: 05-05-2023 take 1 tablet by sabrina th once daily losartan 25 mg Tab 25 mg = 1 tab(s), Oral, Daily, # 30 tab(s), Refills(s) 3, Pharmacy: [facility]/pharmacy #[id number], 178, cm, 05/02/23 13:12:00 EST, Height/Length Dosing, 102, kg, 05/02/23 13:12:00 EST, Weight Dosing Start Date: 05/05/23 Status: Ordered metoprolol tartrate 25 mg oral tablet (3 sources) beta-Adrenergic Larry Start: 03-20-2023 take 1 tablet by mouth twice daily Metoprolol tartrate 25 mg Tab 25 mg = 1 tab(s), Oral, BID, # 60 tab(s), Refills(s) 3, Pharmacy: [facility]/pharmacy #[id number], 178, cm, 03/20/23 13:55:00 EST, Height/Length Dosing, 102.2, kg, 03/20/23 13:55:00 EST, Weight Dosing Start Date: 03/20/23 Status: Ordered Finderne (No Known Home Meds) (1 source) Start: 03-12-2021 Finderne (No Known Home Meds) Active 0 March 12, 2021 8:12am spironolactone 25 mg oral tablet (1 source) Aldosterone Antagonist Start: 05-30-2023 take 1 tablet by mouth once daily spironolactone 25 mg Tab 25 mg = 1 tab(s), Oral, Daily, # 30 tab(s), Refills(s) 6, Pharmacy: [facility]/pharmacy #[id number], 178, cm, 05/30/23 15:00:00 EST, Height/Length Dosing, 101.3, kg, 05/30/23 15:00:00 EST, Weight Dosing Start Date: 05/30/23 Status: Ordered Completed/Discontinued Medications Medication Drug Class(es) Dates Sig [...] Problem Date Documented Date Episodic/Chronic Anxiety disorders (20 sources) Posttraumatic stress disorder; Translations: [Post-traumatic stress disorder, unspecified] Onset: 02-12-2021 Chronic Asthma (9 sources) Exacerbation of mild persistent asthma; Translations: [Mild persistent asthma with (acute) exacerbation] Chronic Cardiac dysrhythmias (2 sources) Atrial fibrillation 05-08-2023 Chronic Crushing injury or internal injury (3 sources) Rupture of spleen; Translations: [Other injury of spleen, initial encounter] Episodic Disorders usually diagnosed in infancy, childhood, or adolescence (1 source) 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 childhood and adolescence; Translations: [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 childhood and adolescence] Onset: 09-10-2021 Chronic Essential hypertension (7 sources) Hypertensive disorder 03-20-2023 Chronic Mood disorders [...] between 19-24, adult] Episodic Residual codes; unclassified (5 sources) Memory impairment 03-20-2023 Episodic Skin and subcutaneous tissue infections (2 sources) Cellulitis of right lower limb; Translations: [Cellulitis of right lower limb] Onset: 12-03-2021 Episodic Spondylosis; intervertebral disc disorders; other back problems (4 sources) Radiculopathy, cervical region; Translations: [Spinal stenosis, cervical region] Onset: 04-17-2023 Episodic Substance-related disorders (11 sources) Nicotine dependence; Translations: [Nicotine dependence, cigarettes, uncomplicated] Chronic Comment on above: Added secondary to d ocumentation in Social History. Suicide and intentional self-inflicted injury (3 sources) Suicidal thoughts; Translations: [Suicidal ideations] Episodic Systemic lupus erythematosus and connective tissue disorders (5 sources) Autoimmune disease 03-20-2023 Chronic Unclassified (7 [...] Test Name Value Interpretation Reference Range Facility Physician Orderon 06-13-2023 Physician Order Lab ordered for alexandrea ent & he request to have it done @ [facility]. Lab orders faxed to [facility] ( ) & confirmation received. [id number]#1.00 TIFF Normal [facility] Physician Orderon 06-02-2023 Physician Order [id number]#1.00 TIFF Normal [facility] Stress EKG Tracingson 2023 Stress EKG Tracings [id number]#1.00T IFF Normal [facility] Operative Reporton Operative Report Indication for Surge ry Cardiomyopathy Preoperative Diagnosis Presumed CAD Postoperative Diagnosis Confirmed mild-moderate CAD with no intervention needed Operation Coronary angiography Left ventriculography Hemodynamic measurements of the left ventricle This note is completed immediately following the procedure the date and time of this procedure are the same as this note. Surgeon(s) Zeb Delarosa MD Anesthesia Conscious sedation Estimated Blood Loss trivial Findings LMT: Normal left main trunk with bifurcation LAD: Normal caliber with mild irregularity and 30% mid stenosis, reaches the apex. LCx: Normal caliber with mild irregularity and less than 30% stenosis, reaches the lateral wall. RCA: Normal caliber with diffuse mild to moderate disease with 50 to 60% distal stenosis, dominant, reaches the inferior wall. Hemodynamics: Normal LVEDP with no gradient across the aortic valve. Left ventriculography: Abnormal LV systolic function, EF 30-35 %, no wall motion abnormalities and mildly dilated chamber size with no mitral regurgitation. Conclusions: Mild-moderate nonobstructive CAD no intervention needed. Medical therapy is advised. Complications None Technique Following full and informed consent the patient was brought to the [facility] where sterile prep and drape were administered in usual fashion. Anesthesia was obtained in the right wrist with lidocaine after administration of conscious sedation. A 5/6 slender Terumo sheath was placed in the right radial artery without complication. Nitroglycerin and nicardipine were given via the sheath and heparin was given intravenously. A 5 Omani JACKE catheter was advanced and selectively engaged in the left main coronary artery and right coronary artery each, where selective injections were performed. A pigtail catheter was placed in the left ventricle where hemodynamic measurements the left ventricle were made and a bolus was given for left ventriculography. A pullback gradient was obtained. The sheath was removed with hemostasis obtained by D-Stat radial device at the end of the procedure without complication. Normal [facility] Comment on above: Result Comment: Elec tronically Signed By: Isaura RUBIO, Zeb Reza\.br\Date and Time Signed: 05/13/23 13:46 EST Consent for Procedure/Surger yon 05-09-2023 Consent for Procedure/Surgery [id number]#1.00 TIFF Normal [facility] Discharge Instructionson Discharge Instructions [id number]#1.00 TIFF Normal [facility] Cardiovascular Reporton 04-24 Cardiovascular Report [id number]#1.00 TIFF Normal [facility] Consent for Treatmenton 04-24 Consent for Treatment [id number] IFF Normal [facility] Inpatient Clinical Summaryon 05-08-2023 Inpatient Clinical Summary (Inserted Image. Unable to display[address] [address] Clinical Summary Person Information: Name: MERI NOGUERA Age: 52 Years : 1970 Sex: Male PCP: MONICA BARRERA MD Marital Status: Race: White Ethnicity: Non- or Language: Kiswahili Visit Id: Visit Reason: R94.39 R07.9 Speciality: Acuity: Enc Type: Ambulatory/Same Day Surgery Med Service: Cardiovascular Arrival: 05/08/2023 09:48:23 Discharge: Dispo Type: Address: [address] [place] [id number] Provider Notes: Diagnosis: Problems Active Smoker Smoking Status: Current Every Day Smoker Functional Status: Sensory Deficits: Uncorrected visual impairment History of Falls: Mobility Assistance Prior to Admission: Independent ADLs: Independent Current Level of Assistance for Self-Care/Mobility: Cognitive Status: Allergies No Known Medication Allergies Measurements: Height: 178 cm Weight: 102 kg Blood Pressure: Not Valued / Not Valued BMI: 32.19 kg/m2 Procedures Catheterization of left heart (05/08/2023) Immunizations No Immunizations Documented This Visit Final Med List: acetaminophen (Tylenol) albuterol apixaban (Eliquis 5 mg oral tablet) 1 Tablets By Mouth 2 times a day. Refills: 3. carvedilol (carvedilol 3.125 mg Tab) 1 Tablets By Mouth 2 times a day. Refills: 3. losartan (losartan 25 mg Tab) 1 Tablets By Mouth every day. Refills: 3. Care Team Members: Attending Physician: Zeb Delarosa MD Consulting Physician: Referring Physician: Zeb Delarosa MD Follow up: With: Address: When: Zeb Delarosa [address] [place], [place] [id number] Business (1) 05/30/2023 3:15 PM Type Location Start [facility] Cardiology Follow Up (FT) [facility] [place] 05/30/2023 3:00 PM 05/30/2023 3:15 PM Confirmed Cardiology Follow Up (FT) [facility] [place] 10/31/2023 1:00 PM 10/31/2023 1:15 PM Confirmed Patient Education Information: CV - Cardiovascular Discharge Instructions (CUSTOM) Normal [facility] Inpatient Patient Summaryon 05-08-2023 Inpatient Patient Summary [address] [address] Patient Discharge Instructions PERSON INFORMATION Name: MERI NOGUERA Date of : 1970 Current Date: 05/08/2023 14:40:32 PHYSICIANS Admitting Physician: Zeb Delarosa MD Primary Care Physician: MONICA BARRERA MD PCP Comment: Discharge Diagnosis: Condition at Discharge: Stable MERI NOGUERA has been given the following list of follow-up instructions, prescriptions, and patient education materials: PATIENT FOLLOW-UP INFORMATION Diet: Regular Discharge Activity: Activity as tolerated, Do not lift more than 5 lbs Discharge Restrictions: No driving for 24 hrs, Do not operate machinery or tools, Do not make important decisions for 24 hours, Do not drink alcoholic beverages for 24 hours Wound Care Instructions: Remove dressing as instructed Remove Your Dressing In 1 Days Call Your Doctor For: IF UNABLE TO CONTACT YOUR PHYSICIAN AND YOU FEEL IT IS AN EMERGENCY, GO TO THE NEAREST EMERGENCY ROOM OR CALL 911 Home Treatment: Devices/Equipment: Special Services: Additional Instructions: Primary Care Physician to provide the following pending test results: Urine culture Follow up: With: Address: When: Zeb Isaura [address] [place] [address] Business (1) 05/30/2023 3:15 PM In the event that this physician does not participate in your insurance network, please consult with your insurance company to find a nearby participating provider. Type Location Start [facility] Cardiology Follow Up (FT) FT[facility] [place] 05/30/2023 3:00 PM 05/30/2023 3:15 PM Confirmed Cardiology Follow Up (FT) [facility] [place] 10/31/2023 1:00 PM 10/31/2023 1:15 PM Confirmed Comment: CHUCKIE Oliver LEWIS A, have received the attached patient education materials/instructions and have verbalized understanding: Patient Signature Date Clinican/Nurse Signature _ Date HERE ARE THE MEDICATION CHANGES THAT OCCURRED DURING YOUR HOSPITAL STAY Medications to Continue with No Changes Other Medications acetaminophen (Tylenol) Last Dose: __Next Dose: __ albuterol Last Dose: __Next Dose: __ apixaban (Eliquis 5 mg oral tablet) 1 Tablets By Mouth 2 times a day. Refills: 3. Last Dose: __Next Dose: __ carvedilol (carvedilol 3.125 mg Tab) 1 Tablets By Mouth 2 times a day. Refills: 3. Last Dose: __Next Dose: __ losartan (losartan 25 mg Tab) 1 Tablets By Mouth every day. Refills: 3. Last Dose: __Next Dose: __ Comment: MEDICATION LIST PROVIDED FOR YOU IS A LIST OF YOUR CURRENT MEDICATIONS. PLEASE CARRY THIS WITH YOU AT ALL TIMES. acetaminophen (Tylenol) albuterol apixaban (Eliquis 5 mg oral tablet) 1 Tablets By Mouth 2 times a day. Refills: 3. carvedilol (carvedilol 3.125 mg Tab) 1 Tablets By Mouth 2 times a day. Refills: 3. losartan (losartan 25 mg Tab) 1 Tablets By Mouth every day. Refills: 3. Pharmacy Information: Comment: PATIENT EDUCATION INFORMATION Instructions: [place], [place] CARDIOVASCULAR DISCHARGE INSTRUCTIONS Diet: ? Resume pre-procedure diet. ? Increase water intake the next 2 days to flush dye out of the body. Activity: If radial access: ? Limit your activity today. Do not operate a vehicle, machinery or power tools. ? NO LIFTING OVER 3 POUNDS for 3 days. ? Do not bend your wrist for 24 hours. ? May resume driving in 24 hours. ? No sexual activity for 1 week. ? Let pain/discomfort guide your activity. If you are having pain, stop. ? Return to the Emergency Room if you have trouble breathing, walking or nausea and vomiting. Medications: ? Resume pre-procedure medication, unless otherwise directed. ? Hold the following medications for 48 hours post procedure: Actoplus Met Glucophage Glucophage XR Glucovance Avandamet Fortamet Apo-metformin Glycon Pura-metformin Glumetza Janumet Metaglip Riomet Glycomet *Minimal pain, soreness and/or discomfort is expected. *You may take OTC non-steroidal anti-inflammatory to manage discomfort, unless contraindicated. If pain is not controlled with the above medications, contact your physician. Site Care: ? Do not remove dressing for 24 hours unless it becomes saturated, then replace. ? Keep site clean and dry; inspect site daily. ? Do not use any lotions, powders, or ointments at the groin or wrist site for 1 week. ? May shower 24 hours after the procedure. Clean site with soap and water. Pat dry and apply band aid. No tub baths, swimming or hot tubs for 3 days Post Procedure: ? Soreness an (more content not included)... Normal [facility] Patient Education - Texton 0 05-08-2023 Patient Education - Text [place], [place] CARDIOVASCULAR DISCHARGE INSTRUCTIONS Diet: ? Resume pre-procedure diet. ? Increase water intake the next 2 days to flush dye out of the body. Activity: If radial access: ? Limit your activity today. Do not operate a vehicle, machinery or power tools. ? NO LIFTING OVER 3 POUNDS for 3 days. ? Do not bend your wrist for 24 hours. ? May resume driving in 24 hours. ? No sexual activity for 1 week. ? Let pain/discomfort guide your activity. If you are having pain, stop. ? Return to the Emergency Room if you have trouble breathing, walking or nausea and vomiting. Medications: ? Resume pre-procedure medication, unless otherwise directed. ? Hold the following medications for 48 hours post procedure: Actoplus Met Glucophage Glucophage XR Glucovance Avandamet Fortamet Apo-metformin Glycon Pura-metformin Glumetza Janumet Metaglip Riomet Glycomet *Minimal pain, soreness and/or discomfort is expected. *You may take OTC non-steroidal anti-inflammatory to manage discomfort, unless contraindicated. If pain is not controlled with the above medications, contact your physician. Site Care: ? Do not remove dressing for 24 hours unless it becomes saturated, then replace. ? Keep site clean and dry; inspect site daily. ? Do not use any lotions, powders, or ointments at the groin or wrist site for 1 week. ? May shower 24 hours after the procedure. Clean site with soap and water. Pat dry and apply band aid. No tub baths, swimming or hot tubs for 3 days Post Procedure: ? Soreness and tenderness to the site can last up to one week. ? Bruising may occur to site. ? A responsible adult should be with you for the first 24 hours after you arrive home. ? Keep follow-up appointment. ? No smoking for 24 hours as it increases the risk of developing blood clots. ? If you are interested in smoking cessation, contact [facility] [place] [phone], ext. [phone]. ? In the event you are unable to reach your physician, please call [facility] at [phone] and the silo operator will assist you. Seek Immediate Medical Care for: ? Bleeding: Apply continuous pressure to the site and Call 911. ? Should the arm or leg become cold, numb, blue or white call your physician immediately. ? Signs of infection are redness, warmth, swelling, increased tenderness, colored drainage, fever or chills ? Chest pain ? Normal [facility] Outside Labson 05-06-2023 Outside Labs [id number]#1.00 TIFF Normal [facility] Physician Orderon 05-06-2023 Physician Order [id number]#1.00 TIFF Normal [facility] Insurance Correspondenceon 0 05-05-2023 Insurance Correspondence [id number]#1.00 TIFF Normal [facility] Heart and Vascular Office/Cl inic Noteon 05-03-2023 Heart and Vascular Office/Clinic Note Chief Complaint here for test results History of Present Illness Meri Noguera is a 52-year-old male who presents today for a 6 week followup. His testing showed a mild enlargement and mild weakness of his heart. He has been experiencing increased fatigue recently. He has atrial fibrillation. He reports not having a healthy life. Dr. Noelle Salazar is checking is oxygen levels. He states that his eyes are glossy, and his thinking is impaired. He drinks 6 packs of beer. He slowed down smoking last month. He is trying to find work. He is on aspirin. Review of Systems Constitutional: no fever, no sweats, no weakness Skin: no rash, no lesions, no bruising/petechiae ENMT: no sore throat, no congestion, no hoarseness Respiratory: no shortness of breath, no cough, no orthopnea, no wheezing Cardiovascular: no chest pain, no palpitations, no edema Gastrointestinal: no nausea, no vomiting, no diarrhea, no GI bleeding Genitourinary: no anuria/oliguria no hematuria Musculoskeletal: no back pain, no trauma Neurologic: no headache, no dizziness, no numbness, [...] noncontributory Physical Exam Vitals & Measurements HR: 54(Peripheral) BP: 138/82 SpO2: 96% HT: 70 in HT: 178 cm WT: 102 kg WT: 224.4 lb BMI: 32.19 General: alert, no acute distress Skin: warm, [...] judgement, normal psychiatric thoughts. Assessment/Plan 1. New Finding of Cardiomyopathy, Unspecified Meri Noguera is a 52-year-old with an incidental finding of atrial fibrillation and also turns out to have cardiomyopathy and left ventricular systolic dysfunction. I recommend heart catheterization. I am going to start him on Eliquis as his [id number] score is higher. We will switch him from metoprolol tartrate to Coreg. We will start him on losartan as well. He will follow up in 6 weeks after his heart catheterization. 2. Obesity BMI 32 Diet and exercise as tolerated is recommended to promote weight loss and improve cardiovascular wellness. Portions of this record may have been created with voice recognition artificial intelligence software, specifically [email or web address], [employer] and or [employer]. Substitutions may have occurred due to the inherent limitations of voice recognition and artificial intelligence software. ATTESTATION: Documentation services were performed after patient or guardian consented to allow [email or web address] to record this visit. ESTEFANIA release of information specialist and provider reviewed before signing. ESTEFANIA: [place] Follow-up No qualifying data available Problem List/Past Medical History Ongoing No qualifying data Historical Anxiety Asthma Autoimmune disorder Hypertension Memory Issues Procedure/Surgical History H/O splenectomy, Hip replacement, Lung. Medications albuterol aspirin 81 mg Chew Tab, 81 mg= 1 tab(s), Oral, Daily, 3 refills gabapentin 100 mg Cap Metoprolol tartrate 25 mg Tab, 25 mg= 1 tab(s), Oral, BID, 3 refills Tylenol Allergies No Known Medication Allergies Social History Tobacco 5-9 cigarettes (between 1/4 to 1/2 pack)/day in last 30 days Tobacco Use:. Smokeless tobacco user within last 30 days Smokeless Tobacco Use:., 05/02/2023 Family History Heart disease: Father. Normal [facility] Comment on above: Result Comment: Elec tronically Signed By: Zeb Delarosa MD\.br\Date and Time Signed: 05/03/23 13:01 EST\.br\Electronically Co-Signed By: Aman Rdz\.br\Date and Time Co-Signed: 05/02/23 17:11 EST NM Myocardial Spect Rest/Str ess 1 Dayon [...] Stress Dose (mCi Tc99M Cardiolite): 30.1 Normal [facility] MR cervical spine wo [facility] 0 04-17-2023 MR cervical spine wo [facility] [place] [address] MRI Report Signed Patient: Meri Noguera MR#: [id number] : 1970 Acct:[id number] Age/Sex: 52 / M ADM Date: 04/17/23 Loc: MR Room: Type: [facility] Attending Dr: Noelle Avery RN Copies to: Noelle Avery RN Ordering Provider: Noelle Avery RN Date of Service: 04/17/23 MR/MR cervical [...] Robe Fox M.D.04/17/2023 2:28 PM Dictation Location: [place] [address] Transcribed By: [facility] 04/17/231427 Dictated By: Robe Fox II, MD 04/17/231424 Signed By: 04/17/23 142 Normal [facility] MR head/brain wo/w conon MR head/brain wo/w con [facility] [place] [address] MRI Report Signed Patient: Meri Noguera MR#: [id number] : 1970 Acct:[id number] Age/Sex: 52 / M ADM Date: 04/17/23 Loc: Room: Type: [facility]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 ML/MIN/1.73M2 Normal [facility] Comment on above: Result Comment: IF THE PATIENT IS , PLEASE MULTIPLY THIS BY 1.159. THIS RESULT HAS BEEN CALCULATED ASSUMING THE PATIENT IS NON- Performed By: #### L AB119 #### [place] [address] Glucose [Mass/Vol] 126 mg/dL High 70-99 [facility] Comment on above: Performed By: #### L AB119 #### [place] [address] Potassium [Moles/Vol] 4.5 mmol/L Normal 3.4-5.3 [facility] Comment on above: Performed By: #### L AB119 #### [place] [address] Sodium [Moles/Vol] 136 mmol/L Normal 135-148 [facility] Comment on above: Performed By: #### L AB119 #### [place] [address] Urea nitrogen [Mass/Vol] 11 mg/dL Normal 3-29 [facility] Comment on above: Performed By: #### L [id number] #### [place] [address] COMPLETE BLOOD COUNT 05-09 Erythrocyte distribution width (RBC) [Ratio] 14.3 % Normal 9.0-15.0 [facility] Comment on above: Performed By: #### L AB119 #### [place] [address] Hematocrit (Bld) [Volume fraction] 34.8 % Low 41.0-50.0 [facility] Comment on above: Performed By: #### L AB119 #### [place] [address] Hemoglobin (Bld) [Mass/Vol] 11.9 g/dL Low 13.8-17.2 [facility] Comment on above: Performed By: #### L AB119 #### [place] [address] MCH (RBC) [Entitic mass] 30.4 pg Normal 27.0-33.0 [facility] Comment on above: Performed By: #### L AB119 #### [place] [address] MCHC (RBC) [Mass/Vol] 34.0 g/dL Normal 32.0-36.0 [facility] Comment on above: Performed By: #### L [id number] #### [place] [address] MCV (RBC) [Entitic vol] 89.4 fL Normal 80.0-100.0 [facility] Comment on above: Performed By: #### L [id number] #### [place] [address] Platelets (Bld) [#/Vol] 168 10*3/uL Normal 130-400 [facility] Comment on above: Performed By: #### L [id number] #### [place] [address] RBC COUNT 3.90 M/MM3 Low 4.40-5.80 [facility] Comment on above: Performed By: #### L AB119 #### [place] [address] WBC (Bld) [#/Vol] 19.5 10*3/uL High 3.8-10.8 [facility] Comment on above: Performed By: #### L AB119 #### [place] [address] DRUG SCREEN, URINEon 021 AMPHETAMINE, URINE Not detected Normal NONDT [facility] Comment on above: Performed By: #### L AB119 #### [place] [address] BARBITURATES, URINE Not detected Normal [facility] Comment on above: Performed By: #### L AB119 #### [place] [address] BENZODIAZEPINE, URINE Positive Abnormal NONDT [facility] Comment on above: Performed By: #### L AB119 #### [place] [address] COCAINE, URINE Not detected Normal [facility] Comment on above: Performed By: #### L AB119 #### [place] [address] COMMENT, URINE DRUG SCREEN Normal [facility] Comment on above: Result Comment: The [...] and/or metabolites are present. Test performed at [facility] [place], [place] Performed By: #### L AB119 #### [place] [address] OPIATES, URINE Not detected Normal [facility] Comment on above: Performed By: #### L AB119 #### [place] [address] THC Not detected Normal [facility] Comment on above: Performed By: #### L [id number] #### [place] [address] SARS COV 2 RNA, QL REAL TIME RT PCRon 05-09-2020 SARS-CoV-2 (COVID-19) RNA ARAVIND+probe Ql (Unsp spec) Not detected Normal NDET [facility] Comment on above: Result Comment: Refe rence Range = NOT DETECTED Performed By: #### L [id number] #### [place] [address] SARS-CoV-2 (COVID-19) RNA ARAVIND+probe Ql (Unsp spec) (NOTE) Normal [facility] Comment on above: Result Comment: The [...] 2019. Performed By: #### L AB119 #### [place] [address] URINALYSISon 05-09-2020 Appearance (U) CLEAR Normal [facility] Comment on above: Performed By: #### L [id number] #### [place] [address] BACTERIA, URINE NONE SEEN Normal [facility] Comment on above: Performed By: #### L AB119 #### [place] [address] BILIRUBIN, URINE Negative Normal NEG [facility] Comment on above: Performed By: #### L AB119 #### [place] [address] BLOOD, URINE Negative Normal NEG [facility] Comment on above: Performed By: #### L [id number] #### [place] [address] Color (U) Normal [facility] Comment on above: Result Comment: SIENNA SKY Reference Range: Yellow and Colorless Performed By: #### L AB119 #### [place] [address] Glucose Ql (U) Negative Normal NEG [facility] Comment on above: Performed By: #### L AB119 #### [place] [address] HYALINE CAST Normal U05 [facility] Comment on above: Result Comment: 0-5 REFERENCE RANGE: 0-5 HYALINE CASTS NONE SEEN FOR NON HYALINE CASTS Performed By: #### L AB119 #### [place] [address]47943 KETONE, URINE Negative Normal NEG [facility] Comment on above: Performed By: #### L AB119 #### [place] [address] LEUKOCYTES, URINE Negative Normal NEG [facility] Comment on above: Performed By: #### L AB119 #### [place] [address]43 MUCUS, URINE PRESENT Normal [facility] Comment on above: Performed By: #### L AB119 #### [place] [address] NITRITES, URINE Negative Normal NEG [facility] Comment on above: Performed By: #### L AB119 #### [place] [id number] pH (U) 6.0 [pH] Normal 4.5-8.0 [facility] Comment on above: Performed By: #### L AB119 #### [place] [id number] Protein (U) [Mass/Vol] 10 mg/dL Abnormal NEG [facility] Comment on above: Performed By: #### L AB119 #### [place] [id number] RBC, URINE 6-10 Abnormal U02 [facility] Comment on above: Performed By: #### L AB119 #### [place] [address] RENAL EPITHELIAL CELLS, URINE 0-5 Normal 5 [facility] Comment on above: Performed By: #### L AB119 #### [place] [address] SPECIFIC GRAVITY, URINE 1.040 High 1.005-1.030 [facility] Comment on above: Result Comment: Urin e specific gravity may be affected by X-ray dye, high glucose, high protein, and some chemotherapeutic drugs. Clinical correlation is recommended. Performed By: #### L AB119 #### [place] [address] SQUAMOUS EPITHEAL CELLS, URINE 0-[address] Comment on above: Performed By: #### L AB119 #### [place] [address] UROBILINOGEN, URINE <2 Normal <2 [facility] Comment on above: Performed By: #### L AB119 #### [place] [address] WBC, URINE 0-[address] Comment on above: Performed By: #### L AB119 #### [place] [address] ACTIVATED PARTIAL THROMBOPLA STIN TIMEon 05-08-2020 aPTT Coag (Bld) [Time] 26.0 s Normal 24.5-35.2 [facility] Comment on above: Performed By: #### L [id number] #### [place] [address] BASIC METABOLIC PANELon 04-24 Anion gap [Moles/Vol] 11 mmol/L Normal 08-05 [facility] Comment on above: Performed By: #### L [id number] #### [place] [address] BUN/CREAT RATIO 10 (CALC) Normal 7.0-25.0 [facility] Comment on above: Performed By: #### L AB064 #### [place] [address] Calcium [Mass/Vol] 7.4 mg/dL Low 8.5-10.5 [facility] Comment on above: Performed By: #### L AB064 #### [place] [address] Chloride [Moles/Vol] 103 mmol/L Normal 96-110 [facility] Comment on above: Performed By: #### L AB064 #### [place] [address] CO2 [Moles/Vol] 20 mmol/L Normal 19-32 [facility] Comment on above: Performed By: #### L AB064 #### [place] [address] Creatinine [Mass/Vol] 1.0 mg/dL Normal 0.5-1.4 [facility] Comment on above: Performed By: #### L AB064 #### [place] [address] ESTIMATED GFR 87 ML/MIN/1.73M2 Normal [facility] Comment on above: Result Comment: IF THE PATIENT IS , PLEASE MULTIPLY THIS BY 1.159. THIS RESULT HAS BEEN CALCULATED ASSUMING THE PATIENT IS NON- Performed By: #### L AB064 #### [place] [address] Glucose [Mass/Vol] 206 mg/dL High 70-99 [facility] Comment on above: Performed By: #### L AB064 #### [place] [address] Potassium [Moles/Vol] 4.8 mmol/L Normal 3.4-5.3 [facility] Comment on above: Result Comment: HEMO LYZED POTASSIUM RESULTS ARE ELEVATED BY SPECIMEN HEMOLYSIS Performed By: #### L AB064 #### [place] [address] Sodium [Moles/Vol] 134 mmol/L Low 135-148 [facility] Comment on above: Performed By: #### L AB064 #### [place] [address] Urea nitrogen [Mass/Vol] 10 mg/dL Normal 3-29 [facility] Comment on above: Performed By: #### L [id number] #### [place] [address] COMPLETE BLOOD COUNT 05-08 Erythrocyte distribution width (RBC) [Ratio] 14.0 % Normal 9.0-15.0 [facility] Comment on above: Performed By: #### L [id number] #### [place] [address] Hematocrit (Bld) [Volume fraction] 40.4 % Low 41.0-50.0 [facility] Comment on above: Performed By: #### L [id number] #### [place] [address] Hemoglobin (Bld) [Mass/Vol] 13.7 g/dL Low 13.8-17.2 [facility] Comment on above: Performed By: #### L [id number] #### [place] [address] MCH (RBC) [Entitic mass] 30.4 pg Normal 27.0-33.0 [facility] Comment on above: Performed By: #### L [id number] #### [place] [address] MCHC (RBC) [Mass/Vol] 33.9 g/dL Normal 32.0-36.0 [facility] Comment on above: Performed By: #### L [id number] #### [place] [address] MCV (RBC) [Entitic vol] 89.9 fL Normal 80.0-100.0 [facility] Comment on above: Performed By: #### L AB119 #### [place] [address] Platelets (Bld) [#/Vol] 164 10*3/uL Normal 130-400 [facility] Comment on above: Performed By: #### L AB119 #### [place] [address] RBC COUNT 4.49 M/MM3 Normal 4.40-5.80 [facility] Comment on above: Performed By: #### L [id number] #### [place] [address] WBC (Bld) [#/Vol] 16.8 10*3/uL High 3.8-10.8 [facility] Comment on above: Performed By: #### L AB119 #### [place] [address] COMPLETE BLOOD COUNT WITH DI FFERENTIALon 05-08-2020 ABSOLUTE BASOPHIL 0.1 K/MM3 Normal 0.0-0.3 [facility] Comment on above: Performed By: #### L [id number] #### [place] [address] ABSOLUTE SEGMENTED NEUTROPHIL 13.5 K/MM3 High 1.5-7.8 [facility] Comment on above: Performed By: #### L AB119 #### [place] [address] Basophils/100 WBC (Bld) 0.3 % Normal 0.0-2.0 [facility] Comment on above: Performed By: #### L AB119 #### [place] [address] Eosinophils (Bld) [#/Vol] 0.0 10*3/uL Normal 0.0-0.6 [facility] Comment on above: Performed By: #### L [id number] #### [place] [address] Eosinophils/100 WBC (Bld) 0.1 % Normal 0.0-7.0 [facility] Comment on above: Performed By: #### L AB119 #### [place] [address] Erythrocyte distribution width (RBC) [Ratio] 13.8 % Normal 9.0-15.0 [facility] Comment on above: Performed By: #### L AB119 #### [place] [address] Hematocrit (Bld) [Volume fraction] 39.7 % Low 41.0-50.0 [facility] Comment on above: Performed By: #### L AB119 #### [place] [address] Hemoglobin (Bld) [Mass/Vol] 13.2 g/dL Low 13.8-17.2 [facility] Comment on above: Performed By: #### L AB119 #### [place] [address] Lymphocytes (Bld) [#/Vol] 1.0 10*3/uL Normal 0.9-4.1 [facility] Comment on above: Performed By: #### L AB119 #### [place] [address] Lymphocytes/100 WBC (Bld) 6.4 % Low 18.0-47.0 [facility] Comment on above: Performed By: #### L [id number] #### [place] [address] MCH (RBC) [Entitic mass] 30.4 pg Normal 27.0-33.0 [facility] Comment on above: Performed By: #### L AB119 #### [place] [address] MCHC (RBC) [Mass/Vol] 33.2 g/dL Normal 32.0-36.0 [facility] Comment on above: Performed By: #### L AB119 #### [place] [address] MCV (RBC) [Entitic vol] 91.6 fL Normal 80.0-100.0 [facility] Comment on above: Performed By: #### L AB119 #### [place] [address] Monocytes (Bld) [#/Vol] 1.3 10*3/uL High 0.2-1.1 [facility] Comment on above: Performed By: #### L AB119 #### [place] [address] Monocytes/100 WBC (Bld) 8.1 % Normal 0-14.0 [facility] Comment on above: Performed By: #### L [id number] #### [place] [address] Platelets (Bld) [#/Vol] 187 10*3/uL Normal 130-400 [facility] Comment on above: Performed By: #### L [id number] #### [place] [address] RBC COUNT 4.34 M/MM3 Low 4.40-5.80 [facility] Comment on above: Performed By: #### L AB119 #### [place] [address] Segmented neutrophils/100 WBC (Bld) 85.1 % High 40.0-75.0 [facility] Comment on above: Performed By: #### L AB119 #### [place] [address] WBC (Bld) [#/Vol] 15.9 10*3/uL High 3.8-10.8 [facility] Comment on above: Performed By: #### L AB119 #### [place] [address] ETHANOLon 05-08-2020 Ethanol [Mass/Vol] Not detected Normal NONDT [facility] Comment on above: Performed By: #### L [id number] #### [place] [address] HEMOGLOBIN AND HEMATOCRITon 05-08-2020 Hematocrit (Bld) [Volume fraction] 37.0 % Low 41.0-50.0 [facility] Comment on above: Performed By: #### L AB236 #### [place] [address] Hemoglobin (Bld) [Mass/Vol] 12.5 g/dL Low 13.8-17.2 [facility] Comment on above: Performed By: #### L AB236 #### [place] [address] LACTIC ACIDon 05-08-2020 Lactate [Moles/Vol] 4.0 mmol/L High 0.5-2.2 [facility] Comment on above: Result Comment: Per the request of [facility] [place] and approval by the [facility] Bookkeeping Manager and Medical Executive Committee, this critical value was not called to the caregiver. (NOTE) If ruling out sepsis: Result >2.0 meets criteria for severe sepsis, recommend repeat testing to rule out sepsis. Result >=4.0 meets criteria for septic shock. Performed By: #### L [id number] #### [place] [address] PREPARE RED BLOOD CELLSon PREPARE RED BLOOD CELLS UNIT PRODUCT CODE: [id number] PREPARE RED BLOOD CELLS: RED BLOOD CELLS, CPD>AS1, LEUKOCYTES REDUCED UNIT ID: [id number] UNIT ABO: O UNIT RH: POSITIVE UNIT DISPENSE STATUS: Emergency Issue UNIT EXPIRATION DATE: UNIT BLOOD TYPE: 5100 BLOOD CODING SYS: ISBT 128 [facility] Comment on above: Performed By: #### L [id number] #### [place] [id number] PREPARE RED BLOOD CELLS UNIT PRODUCT CODE: [id number] PREPARE RED BLOOD CELLS: RED BLOOD CELLS, CPD>AS1, LEUKOCYTES REDUCED UNIT ID: [id number] UNIT ABO: O UNIT RH: POSITIVE UNIT DISPENSE STATUS: Emergency Issue UNIT EXPIRATION DATE: UNIT BLOOD TYPE: 5100 BLOOD CODING SYS: ISBT 128 [facility] Comment on above: Performed By: #### L [id number] #### [place] [address] PREPARE RED BLOOD CELLS UNIT PRODUCT CODE: [id number] PREPARE RED BLOOD CELLS: RED BLOOD CELLS, CPD>AS1, LEUKOCYTES REDUCED UNIT ID: [id number] UNIT ABO: O UNIT RH: POSITIVE UNIT INTERPRETATION: Compatible UNIT DISPENSE STATUS: Presumed Transfused UNIT EXPIRATION DATE: UNIT BLOOD TYPE: 5100 BLOOD CODING SYS: ISBT 128 UNIT PRODUCT CODE: [id number] PREPARE RED BLOOD CELLS: RED BLOOD CELLS, CPD>AS1, LEUKOCYTES REDUCED UNIT ID: [id number] UNIT ABO: O UNIT RH: POSITIVE UNIT INTERPRETATION: Compatible UNIT DISPENSE STATUS: Presumed Transfused UNIT EXPIRATION DATE: UNIT BLOOD TYPE: 5100 BLOOD CODING SYS: ISBT 128 [facility] Comment on above: Performed By: #### L [id number] #### [place] [address] PROTHROMBIN TIMEon 1 INR Coag (PPP) [Relative time] 1.2 {INR} High 0.9-1.1 [facility] Comment on above: Result Comment: MODERATE-INTENSITY WARFARIN THERAPY: 2.0-3.0 HIGHER-INTENSITY WARFARIN THERAPY: 3.0-4.0 Performed By: #### L [id number] #### [place] [address] PT Coag (PPP) [Time] 15.3 s High 11.7-13.9 [facility] Comment on above: Performed By: #### L AB119 #### [place] [address] SURGICAL PATHOLOGYon 021 SURGICAL PATHOLOGY SURGICAL PATHOLOGY REPORT Path #: [id number] Patient : MERI NOGUERA #: [id number] Date: 05/09/2020 Pre Op Diagnosis Splenic laceration [...] is an area of focal hemorrhage present. Bookstore Manager sections to include area of described defect and an area of focal hemorrhage are submitted in cassettes A through C . Note that the section with capsule still attached is submitted in cassette A . Technical work associated with this pathology investigation was performed by: [address], [place], [place] [address]. [facility]/05/09/2020 Kat Aguilera Billing Fee Codes [phone] x 1 The CPT codes provided are based on AMA guidelines and are for informational purposes only. CPT coding is the sole responsibility of the billing alliance party. Please direct any questions regarding coding to the payer being billed. Normal [facility] Comment on above: Performed By: #### L [id number] #### [place] [address] TYPE AND SCREENon 05-08-2020 TYPE AND SCREEN ABO GROUP: O RH TYPE: Positive INDIRECT ANTIGLOB: Negative SPECIMEN EXPIRATION DATE/TIME: [id number] Normal [facility] Comment on above: Performed By: #### L AB401 #### [place] [address] VENOUS BLOOD GASon BASE EXCESS,VENOUS -7.3 MMOL/L Normal [facility] Comment on above: Result Comment: BASE EXCESS NORMALS: -2 TO +3 Performed By: #### L AB416 #### [place] [address] HCO3 (Bld) [Moles/Vol] 21.4 mmol/L Low 24.0-28.0 [facility] Comment on above: Performed By: #### L AB416 #### [place] [address] O2 ADMINISTRATED UNKNOWN Normal [facility] Comment on above: Performed By: #### L AB416 #### [place] [address] Oxygen saturation in Blood 71.3 % High 40.0-70.0 [facility] Comment on above: Performed By: #### L AB416 #### [place] [address] PCO2, VENOUS 55.7 MM HG High 41.0-51.0 [facility] Comment on above: Performed By: #### L AB416 #### [place] [address] PH, VENOUS 7.19 Low 7.32-7.42 [facility] Comment on above: Performed By: #### L AB416 #### [place] [address] PO2, VENOUS 43.6 MM HG High 25.0-40.0 [facility] Comment on above: Performed By: #### L AB416 #### [place] [address] SURGICALon 04-30-2017 [facility] MERI DOUGLAS [id number]. [address] [place] [address] [facility]: [facility]Raymond OrtizTanishas RECV: 04/30/2017730 [address] RPTD: 05/08/2017[place], [place] [address] LOC: OI ACCT: SEX: M [id number] AGE: 46 Y : 1970 PATHOLOGY REPORT [...] the underlyingbone. The resection line is unremarkable. Bookstore Manager sections aresubmitted after decalcification. ALP/DKR:jcsMicroscopic Examination:Microscopic examination was performed.[id number] KAT MONTOYA D.O., [place].[facility]/ [facility] Printed on: 05/08/2017750 [place], [place] [address]Vcpnhcig print date: 05/08/2017 [facility] TYPE AND SCREEN CAPTUREon ABO CAPTURE O [facility] Comment on above: Performed By: #### C T+S ####[employer] [address] [place] [address] INDIRECT NEGAR CAPTURE Negative [facility] Comment on above: Performed By: #### C T+S ####[employer] [facility] [address] [place] [address] RH CAPTURE (2 D CLONES) Positive [facility] Comment on above: Performed By: #### C T+S ####[address] [place] [address] Progress Noteon 04-14-2017 HIM IP Note OR Ceo And President Normal [facility] Vital Signs Date Time Vital Sign Value Performing Clinician Nico moy 05-30-2023 14:55-0500 Diastolic blood pressure 90 mm[Hg] Zeb Delarosa [facility] 05-30-2023 14:55-0500 Heart rate 52 /min Zeb Ingramerson [facility] 05-30-2023 14:55-0500 SaO2% (BldA) [Mass fraction] 91 % Zeb Rojoofferson [facility] 05-30-2023 14:55-0500 Systolic blood pressure 124 mm[Hg] Zeb Rojoofferson [facility] 05-02-2023 13:06-0500 Diastolic blood pressure 82 mm[Hg] Zeb Del[facility]osa [facility] [facility] 05-02-2023 13:06-0500 Heart rate 54 /min Zeb Rojoofferson [facility] 05-02-2023 13:06-0500 SaO2% (BldA) [Mass fraction] 96 % Zeb Delarosa [facility] 05-02-2023 13:06-0500 Systolic blood pressure 138 mm[Hg] Zeb Delarosa [facility] 04-17-2023 07:36-0500 Body height 187.96 cm MD Monica Barrera Work Phone: [facility] 04-17-2023 07:36-0500 Body weight 99.79 kg MD Monica Barrera Work Phone: [facility] 03-20-2023 13:47-0500 Diastolic blood pressure 80 mm[Hg] Zeb Delarosa [facility] 03-20-2023 13:47-0500 Heart rate 116 /min Zeb Delarosa [facility] 03-20-2023 13:47-0500 SaO2% (BldA) [Mass fraction] 96 % Zeb Delarosa [facility] 03-20-2023 13:47-0500 Systolic blood pressure 132 mm[Hg] Zeb Delarosa [facility] 12-05-2022 11:30-0400 Body height 187.96 cm Monica Barrera Other [facility] Other 12-05-2022 11:30-0400 Body mass index (BMI) [Ratio] 25.75 kg/m2 Monica Barrera Other [employer] Other 12-05-2022 11:30-0400 Body weight 90.99 kg Monica Barrera Other [employer] [facility] Other 12-05-2022 11:30-0400 Diastolic blood pressure 88 mm[Hg] Monica Barrera Other [facility] Other 12-05-2022 11:30-0400 Respiratory rate 20 /min Monica Barrera Other [employer] Other 12-05-2022 11:30-0400 Systolic blood pressure 134 mm[Hg] Monica Barrera Other [employer] Other 09-30-2022 13:50-0400 Body height 187.96 cm Kat Boss Other [employer] Other 09-30-2022 13:50-0400 Body mass index (BMI) [Ratio] 25.83 kg/m2 Kat Boss Other [facility] Other 09-30-2022 13:50-0400 Body temperature 97.7 [degF] Kat Boss Other [employer] Other 09-30-2022 13:50-0400 Body weight 91.26 kg Kat Boss Other [employer] Other 09-30-2022 13:50-0400 Diastolic blood pressure 76 mm[Hg] Kat Boss Other [facility] Other 09-30-2022 13:50-0400 Respiratory rate 18 /min Kat Boss Other [facility] Other 09-30-2022 13:50-0400 SaO2% (BldA) [Mass fraction] 98 % Kat Boss Other [facility] Other 09-30-2022 13:50-0400 Systolic blood pressure 132 mm[Hg] Kat Boss Other [facility] Other 06-11-2021 08:25-0400 Body height 187.96 cm M.D. [employer] Work Phone: [facility] Work Phone: 06-11-2021 08:25-0400 Body mass index (BMI) [Ratio] 24.6 kg/m2 M.D. [employer] Work Phone: [facility] Work Phone: 06-11-2021 08:25-0400 Body temperature 96.1 [degF] M.D. [employer] Work Phone: [facility] Work Phone: 06-11-2021 08:25-0400 Body weight 87.09 kg M.D. [employer] Work Phone: [facility] Work Phone: 06-11-2021 08:25-0400 Diastolic blood pressure 62 mm[Hg] M.D. Diana Peoples Work Phone: [facility] Work Phone: 06-11-2021 08:25-0400 Heart rate 74 /min M.D. Diana Peoples Work Phone: [facility] Work Phone: 06-11-2021 08:25-0400 SaO2% (BldA) [Mass fraction] 99 % M.D. Diana Peoples Work Phone: [facility] Work Phone: 06-11-2021 08:25-0400 Systolic blood pressure 122 mm[Hg] M.D. Diana Peoples Work Phone: [facility] Work Phone: 03-12-2021 07:57-0500 Body height 187.96 cm M.D. Diana Peoples Work Phone: [facility] Work Phone: 03-12-2021 07:57-0500 Body mass index (BMI) [Ratio] 25.2 kg/m2 M.D. Diana Peoples Work Phone: [facility] Work Phone: 03-12-2021 07:57-0500 Body temperature 96.3 [degF] M.D. Diana Peoples Work Phone: [facility] Work Phone: 03-12-2021 07:57-0500 Body weight 89.36 kg M.D. Diana Peoples Work Phone: [facility] Work Phone: 03-12-2021 07:57-0500 Diastolic blood pressure 72 mm[Hg] M.D. Diana Peoples Work Phone: [facility] Work Phone: 03-12-2021 07:57-0500 Heart rate 132 /min M.D. Diana Peoples Work Phone: [facility] Work Phone: 03-12-2021 07:57-0500 SaO2% (BldA) [Mass fraction] 97 % M.D. Diana Peoples Work Phone: [facility] Work Phone: 03-12-2021 07:57-0500 Systolic blood pressure 138 mm[Hg] M.D. Diana Peoples Work Phone: [facility] Work Phone: 02-12-2021 07:45-0500 Body height 187.96 cm M.D. Diana Peoples Work Phone: [facility] Work Phone: 02-12-2021 07:45-0500 Body mass index (BMI) [Ratio] 25.2 kg/m2 M.D. Diana Peoples Work Phone: [facility] Work Phone: 02-12-2021 07:45-0500 Body temperature 96.3 [degF] M.D. Diana Peoples Work Phone: [facility] Work Phone: 02-12-2021 07:45-0500 Body weight 89.36 kg M.D. Diana Peoples Work Phone: [facility] Work Phone: 02-12-2021 07:45-0500 Diastolic blood pressure 72 mm[Hg] M.D. Diana Peoples Work Phone: [facility] Work Phone: 02-12-2021 07:45-0500 Heart rate 76 /min M.D. Diana [employer]ters Work Phone: [facility] Work Phone: 02-12-2021 07:45-0500 SaO2% (BldA) [Mass fraction] 100 % M.Tariq. [employer] Work Phone: [facility] Work Phone: 02-12-2021 07:45-0500 Systolic blood pressure 126 mm[Hg] M.D. Diana [employer] Work Phone: [facility] Work Phone: Encounters Encounter Date Encounter Type Care Provider Facility Start: 05-30-2023 End: 05-31-2023 ambulatory Zeb Delarosa [place] [place]: 05-30-2023 End: 05-30-2023 Patient encounter procedure Zeb Delarosa [facility] Start: 05-08-2023 End: 05-08-2023 ambulatory Zbe Delarosa [place] [place]: 05-08-2023 End: 05-08-2023 Admission to same day surgery center Zeb Delarosa [facility] Start: 05-02-2023 End: 05-03-2023 ambulatory XXXX NONE [place] [place] Start: 05-02-2023 End: 05-02-2023 Patient encounter procedure Zeb Delarosa [facility] Start: 04-17-2023 End: 04-17-2023 ambulatory Monica Barrera Facility:[facility] Start: 04-17-2023 End: 04-17-2023 ambulatory MD Monica Barrera Work Phone: [facility] Work Phone: Start: 04-17-2023 End: 04-17-2023 Patient encounter procedure MD Monica Barrera Work Phone: [facility] [place] Work Phone: Start: 04-15-2023 End: 04-16-2023 ambulatory Zeb Delarosa [place] [place] Start: 04-15-2023 End: 04-15-2023 Patient encounter procedure Zeb Delarosa [facility] Start: 04-07-2023 End: 04-07-2023 ambulatory LESVIA Steven POCOS Not Available Start: 04-01-2023 ambulatory XXXX NONE Facility:[facility] Start: 03-20-2023 End: 03-21-2023 ambulatory Zeb Delarosa [place] [place] Start: 03-20-2023 End: 03-20-2023 Patient encounter procedure Zeb Delarosa [facility] Start: 12-27-2022 End: 12-27-2022 ambulatory Monica Barrera Other [employer] Other Start: 12-27-2022 [address]phone [address] Monica Barrera [facility] Start: 12-10-2022 End: 12-10-2022 ambulatory Monica Barrera Other [facility] Other Start: 12-10-2022 Telephone encounter Monica Barrera [facility] Start: 12-05-2022 End: 12-05-2022 ambulatory Monica Barrera Other [employer] Other Start: 12-05-2022 Office outpatient ne w [address] [facility] Start: 09-30-2022 End: 09-30-2022 ambulatory Kat Boss Other [facility] Other Start: 09-30-2022 Office outpatient ne w 20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
[2023-06-17 11:13] LABS: BUN Creatinine Ratio 9.7; Calcium 8.9 mg/dL (8.5-10.1); Carbon Dioxide 30.5 mmol/L (21.0-32.0); Chloride 101 mmol/L (98-107); Estimated GFR (African America >60 (>=60); Estimated GFR (Non-African Ame >60 (>=60); Glucose 88 mg/dL (74-106); Potassium 4.5 mmol/L (3.5-5.1); Sodium 139 mmol/L (136-145)
== END 2023-06-17 10:06 | disposition home or self-care (01) ==
LOC: LAB 10:07
PROVIDERS: PCP Family Medicine
DX: I42.9 Cardiomyopathy, unspecified (principal)
CPT/HCPCS: 36415; 80048; 83880

== ENCOUNTER 2023-07-30 13:21 | Outpatient (OUT) | payer OTHER, SELFPAY ==
[2023-07-30 14:01] LABS: Anion Gap 11.1; BUN Creatinine Ratio 12.1; Calcium 9.4 mg/dL (8.5-10.1); Carbon Dioxide 29.9 mmol/L (21.0-32.0); Chloride 101 mmol/L (98-107); Estimated GFR (African America >60 (>=60); Estimated GFR (Non-African Ame >60 (>=60); Glucose 96 mg/dL (74-106); Sodium 138 mmol/L (136-145)
== END 2023-07-30 13:22 | disposition home or self-care (01) ==
LOC: LAB 13:22
PROVIDERS: PCP Family Medicine
DX: I48.91 Unspecified atrial fibrillation (principal)
CPT/HCPCS: 36415; 80048

== ENCOUNTER 2023-08-27 10:52 | Outpatient (RCR) | payer OTHER, SELFPAY | END 2023-09-05 12:01 | disposition home or self-care (01) | LOC: PT 10:52 | PROVIDERS: PCP Family Medicine; Visit Provider Nurse Practitioner Family | DX: M54.16 Radiculopathy, lumbar region (principal); R29.3 Abnormal posture | CPT/HCPCS: 97110 ==

== ENCOUNTER 2023-12-31 12:25 | Outpatient (OUT) | payer OTHER, SELFPAY ==
--- OUTSIDE RECORDS SUMMARY | 2023-12-31 12:32 | XMS_ITS | CCD ---
Author Organization [facility] CliniSyky Care Team Providers Care Layout Mechanic Name Role Phone TANYONY GARCIA Tenisha Unavailable Unavailable No Family, Physician Unavailable Unavailable JOSE KOROMA Unavailable Unavailable No Family, Physician Unavailable Unavailable Ele Peoples Family Provider [phone] Claudia Mckenzie Primary Care Provider [phone] Mone MckenzieNRaymondPRaymond MorelandMarie K. Attending Provider [phone] Ele Peoples Family Provider Mone MckenzieNJovany Morelandndtenisha Cloud Primary Care Provider Mone MckenzieN.PRaymond MorelandMarie Magno. Attending Provider [phone] Diana Peoples Consulting Unavailable Mckenzie, Marie Kiran. Attending Unavailable Mckenzie, Marie K. Primary Care [...] K. Primary Care Unavailable Kat Boss Unavailable Moreno Barrera Unavailable MORENO BARRERA Primary Care Physician [phone] MELANY Avery Attending Provider Unavailable MD Moreno Barrera Primary Care Provider MD Moreno Barrera Primary Care Provider [phone] MD Ronaldo Castro Attending Provider [phone] MD Gem Mcintosh Emergency Provider MD Ronaldo Castro Admit Provider MD Moreno Barrera Primary Care Provider [phone] MD Ronaldo Castro Attending Provider [phone] LESVIA BUTLER Attending Unavailable LESVIA BUTLER Referring Unavailable ANGELA GARZA Attending Unavailable ANGELA GARZA Referring Unavailable JENNIFER AVERY Attending Unavailable JENNIFER AVERY Attending Unavailable JENNIFER AVERY Attending Unavailable NONE, XXXX Referring Unavailable Zeb Delarosa Attending Unavaila ASHER Harley Referring Angelita vailable Zeb Delarosa Attending Unavaila ble NONE, XXXX Referring Unavailable MD Tylor Knight Attending Unavailable MD Tylor Knight Admitting Unavailable NONE, XXXX Referring Unavailable MD Tylor Knight Attending Unavailable NONE, XXXX Referring Unavailable MD Tylor Knight Attending Unavailable MD Tylor Knight Attending Unavailable NONE, XXXX Referring Unavailable MD Tylor Knight Referring Unavailable MD Tylor Knight Admitting Unavailable MD Tylor Knight Attending Unavailable Zeb Delarosa Admitting Unavaila Zeb Rivera Attending Unavaila Zeb Rivera Referring Unavaila Zeb Rivera Admitting Unavaila Zeb Rivera Consulting Unavaila Zeb Rivera Attending Unavaila Zeb Rivera Referring Unavaila MD Zeb Rivera Consulting Unava ilZeb Chávez Consulting Unavaila MD Tylor Rosenthal Referring Unavailable Montalvo, Basem GRaymond Admitting Unavailable Montalvo, Basem GRaymond Attending Unavailable NONE, XXXX Referring Unavailable Zeb Delarosa Attending Unavaila Amalia Hunter Consulting Unavailable Ronaldo Castro Admitting Unavailab Lino Terry Attending Unavailable Moreno Barrera Primary Care Unavailable Chapito Watts Consulting Unavailable Lashon Stoner Consulting Unavailable Jose Hairston Consulting Unavail able Avril Fox Consulting Unavailable Clark Sim Consulting Unavailab Suki Sanchez Consulting Unavailable Neris Vences Consulting Unavailable Charlie Benítez Consulting Unavailab Estephanie Limon Consulting Unavailable Marie Lara Consulting Unavailable Moreno Barrera Primary Care Unavailable Jennifer Avery Admitting Unavailable Jennifer Avery Attending Unavailable Ronaldo Castro Admitting Unavailab Ronaldo Kolb Attending Unavailab Moreno Johns Primary Care Unavailable MD Moreno Barrera Primary Care Provider MD Lino Floyd Attending Provider [phone] MD Ronaldo Castro Attending Provider [phone] MELIDA HORN Attending Unavailable MORENO BARRERA Primary Care Unavailable Allergies Allergy Classification Reported Allergen(s) Allergy Type Date of Onset Reaction(s) Facility (1 source) No Known Medication Allergies; Translations: [No Known Medication Allergies] Propensity to adverse reactions (disorder) [facility] Repository (1 source) Unable to Assess Drug allergy (disorder) [facility] Repository Medications Current Medications Medication Drug Class(es) Dates Sig (Normalized) Sig (Original) Tylenol (12 sources) Start: 03-20-2023 Tylenol Refills(s) 0 Start Date: 03/20/23 Status: Ordered [id number] 200 actuat albuterol 0.09 mg/actuat metered dose inhaler (20 sources) beta2-Adrenergic Agonist Start: 05-28-2023 End: 12-17-2023 take 2 puff(s) by mouth every four hours as needed Albuterol Sulfate Active 0 .ROUTE .COMPLEX 8.5 December 17, 2023 1:19pm INHALE 2 PUFFS BY MOUTH EVERY 4 HOURS NEEDED Start: 05-28-2023 End: 05-28-2023 take 1 puff(s) by inhalation every four hours Albuterol Sulfate Discontinued 2 PUFF INHALATION Every 4 hours May 28, 2023 1:00am May 28, 2023 3:06pm Start: 03-20-2023 albuterol Refi lls(s) 0 Start Date: 03/20/23 Status: Ordered take 2 puff(s) by in halation every four hours as needed Albuterol Sulfate HFA 108 (90 Base) MCG/ACT 2 puff Inhalation every 4 hrs prn Active apixaban 5 mg oral tablet (11 sources) Factor Xa Inhibitor Start: 08-15-2023 take 1 tablet by mouth twice daily Apixaban (Eliquis) 5 mg tablet Active 5 MG PO Twice daily November 06, 2023 12:00am Start: 05-05-2023 take 1 tablet by sabrina th twice daily Eliquis 5 mg oral tablet 5 mg = 1 tab(s), Oral, BID, # 60 tab(s), Refills(s) 3, Pharmacy: [facility]/pharmacy #[id number], 178, cm, 05/02/23 13:12:00 EST, Height/Length [...] Refills(s) 3 Start Date: 03/20/23 Status: Ordered atorvastatin 40 mg oral tablet (8 sources) HMG-CoA Reductase Inhibitor Start: 07-28-2023 take 40 mg by mouth once daily Atorvastatin Active 40 MG PO Daily November 06, 2023 12:00am busPIRone hydrochloride 5 mg oral tablet (3 sources) Start: 11-12-2023 take 5 mg by mouth three times daily Buspirone Active 5 MG PO Three times daily 90 November 12, 2023 12:00am Start: 06-11-2021 Buspirone Acti ve 10 MG PO TWICE DAILY 60 June 11, 2021 9:04am start daily at HS x1 week then bid carvedilol 6.25 mg oral tablet (16 sources) alpha-Adrenergic Larry, beta-Adrenergic Larry Start: 08-11-2023 take 6.25 mg by mouth twice daily Carvedilol Active 6.25 MG PO Twice daily November 06, 2023 12:00am Start: 05-05-2023 take 1 tablet by sabrina twice daily carvedilol 3.125 mg Tab 3.125 mg = 1 tab(s), Oral, BID, # 60 tab(s), Refills(s) 3, Pharmacy: [facility]/pharmacy #[id number], 178, cm, 05/02/23 13:12:00 EST, Height/Length Dosing, 102, kg, 05/02/23 13:12:00 EST, Weight Dosing Start Date: 05/05/23 Status: Ordered Start: 05-05-2023 take 1 tablet by [facility] twice daily carvedilol 3.125 mg Tab 3.125 mg = 1 tab(s), Oral, BID, # 60 tab(s), Refills(s) 3, Pharmacy: [facility]/pharmacy #[id number], 178, cm, 05/02/23 13:12:00 EST, Height/Length [...] Daily, # 30 tab(s), Refills(s) 6, Pharmacy: [facility]/pharmacy #[id number], 178, cm, 05/30/23 15:00:00 EST, Height/Length Dosing, 101.3, kg, 05/30/23 15:00:00 EST, Weight Dosing Start Date: 05/30/23 Status: Ordered Start: 05-05-2023 take 1 tablet by sabrina th once daily losartan 25 mg Tab 25 mg = 1 tab(s), Oral, Daily, # 30 tab(s), Refills(s) 3, Pharmacy: [facility]/pharmacy #[id number], 178, cm, 05/02/23 13:12:00 EST, Height/Length Dosing, 102, kg, 05/02/23 13:12:00 EST, Weight Dosing Start Date: 05/05/23 Status: Ordered metoprolol tartrate 25 mg oral tablet (3 sources) beta-Adrenergic Larry Start: 03-20-2023 take 1 tablet by mouth twice daily Metoprolol tartrate 25 mg Tab 25 mg = 1 tab(s), Oral, BID, # 60 tab(s), Refills(s) 3, Pharmacy: [facility]/pharmacy #[id number], 178, cm, 03/20/23 13:55:00 EST, Height/Length Dosing, 102.2, kg, 03/20/23 13:55:00 EST, Weight Dosing Start Date: 03/20/23 Status: Ordered nicotine 2 mg chewing gum (2 sources) Cholinergic Nicotinic Agonist Start: 11-12-2023 Nicotine (Polacrilex) Active 2 MG BUCCAL Q2H November 12, 2023 12:00am [place] (No Known Home Meds) (1 source) Start: 03-12-2021 [place] (No Known Home Meds) Active 0 March 12, 2021 8:12am polymyxin b [id number] unt/ml / trimethoprim 1 mg/ml ophthalmic solution (1 source) Dihydrofolate Reductase Inhibitor Antibacterial, Polymyxin-class Antibacterial Start: 12-24-2023 Polymyxin B Sulf-Trimethoprim Active 1 DROPS OPHTHALMIC Every three hours 12 28December 24, 2023 12:00am while awake; do not exceed 6 doses in 24 hours sacubitril 24 mg / valsartan 26 mg oral tablet (9 sources) Angiotensin 2 Receptor Larry Start: 06-14-2023 take 1 tablet by mouth twice daily Sacubitril-Valsart an (Entresto) 24-26 mg tablet Active 1 TAB PO Twice daily November 06, 2023 12:00am sertraline 50 mg oral tablet (5 sources) Serotonin Reuptake Inhibitor Start: 11-06-2023 Sertraline Active 50 MG PO .dialy November 06, 2023 12:00am Start: 02-12-2021 End: 03-12-2021 take 50 mg by mouth once daily Sertraline Discontinued 50 MG PO daily February 12, 2021 9:45am March 12, 2021 9:01am spironolactone 25 mg oral tablet (1 source) Aldosterone Antagonist Start: 05-30-2023 take 1 tablet by mouth once daily spironolactone 25 mg Tab 25 mg = 1 tab(s), Oral, Daily, # 30 tab(s), Refills(s) 6, Pharmacy: [facility]/pharmacy #[id number], 178, cm, 05/30/23 15:00:00 EST, Height/Length [...] 22, 2020 9:15am February 12, 2021 8:50am Problems Active Problems Problem Classification Problem Date Documented Da te Episodic/Chronic Anxiety disorders (20 sources) Posttraumatic stress disorder; Translations: [Post-traumatic stress disorder, unspecified] Onset: 02-12-2021 Chronic Asthma (17 sources) Exacerbation of mild persistent asthma; Translations: [Mild persistent asthma with (acute) exacerbation] Chronic Attention-deficit, conduct, and disruptive behavior disorders (1 source) Attention deficit hyperactivity disorder; Translations: [Attention-deficit hyperactivity disorder, unspecified type] 12-24-2023 Chronic Cardiac dysrhythmias (12 sources) Atrial fibrillation; Translations: [Unspecified atrial fibrillation] Onset: 10-07-2023 05-08-2023 Chronic Coronary atherosclerosis and other heart disease (2 sources) Coronary atherosclerosis; Translations: [Atherosclerotic heart disease of [place] coronary artery without angina pectoris] Onset: 08-11-2023 Chronic Crushing injury or internal injury (3 sources) Rupture of spleen; Translations: [Other injury of spleen, initial encounter] Episodic Disorders usually diagnosed in infancy, childhood, or adolescence (1 source) 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 childhood and adolescence; Translations: [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 childhood and adolescence] Onset: 09-10-2021 Chronic Essential hypertension (20 sources) Hypertensive disorder 03-20-2023 Chronic Inflammation; infection of eye (except that caused by tuberculosis or sexually transmitteddisease) (2 sources) Acute conjunctivitis; Translations: [Unspecified acute conjunctivitis, left eye] 12-24-2023 Episodic Malaise and fatigue (3 sources) Fatigue; Translations: [Other fatigue] Onset: 10-07-2023 Episodic Mood disorders (15 sources) Major depressive disorder; Translations: [Major depressive [...] (1 source) Impacted cerumen, bilateral Episodic Other lower respiratory disease (2 sources) Shortness of breath; Translations: [Shortness of breath] Onset: 12-26-2023 Episodic Other non-traumatic joint disorders (3 sources) [...] nasal septum; Translations: [Deviated nasal septum] Episodic [place]-; endo-; and myocarditis; cardiomyopathy (except that caused by tuberculosis or sexually transmitted disease) (2 sources) Cardiomyopathy; Translations: [Other cardiomyopathies] Onset: 08-11-2023 Chronic Residual codes; unclassified (3 sources) Chews tobacco [...] between 19-24, adult] Episodic Residual codes; unclassified (12 sources) Memory impairment 03-20-2023 Episodic Skin and subcutaneous tissue infections (2 sources) Cellulitis of right lower limb; Translations: [Cellulitis of right lower limb] Onset: 12-03-2021 Episodic Substance-related disorders (18 sources) Nicotine dependence; Translations: [Nicotine dependence, cigarettes, uncomplicated] Chronic Comment on above: Added secondary to d ocumentation in Social History. Suicide and intentional self-inflicted injury (9 sources) Suicidal thoughts; Translations: [Suicidal ideations] 11-06-2023 Episodic Systemic lupus erythematosus and connective tissue disorders (12 sources) Autoimmune disease 03-20-2023 Chronic Unclassified (7 [...] methicillin resistant Staphylococcus aureus] Onset: 04-28-2017 Episodic Spondylosis; intervertebral disc disorders; other back problems (4 sources) Radiculopathy, cervical region; Translations: [Spinal stenosis, cervical region] Onset: 04-17-2023 Episodic Unclassified (1 source) Unilateral primary osteoarthritis, right hip; Translations: [Unilateral primary osteoarthritis, right hip] Onset: 04-28-2017 Unclassified (1 source) Encounter for preprocedural laboratory examination; Translations: [Encounter for preprocedural laboratory examination] Onset: 04-28-2017 Unclassified (1 source) Lumbar pain M54.50 Results Test Name Value Interpretation Reference Range Facility [facility] Office/Cl inic Noteon 11-28-2023 [facility] V[facility] Office/Clinic Note [facility]/Clinic Note Chief Complaint f/u afib History of Present Illness The patient is a 53-year-old male with past cardiac history of mild to moderate coronary artery disease, diagnosed at the cardiac catheterization in 2023 in the context of new onset cardiomyopathy, history of paroxysmal atrial fibrillation with failed cardioversion, alcohol abuse, who presents today for an appointment. He presents with complaints of ongoing fatigue, pretty much the same as before. Reports no weight gain. Denies any chest pain or discomfort. He is scheduled to see electrophysiology, however, he canceled his appointment for some family reason. More recently, he was at [facility] for some rehabilitation in was advised to follow-up with cardiology after that. Sleep study showed no evidence of obstructive sleep apnea. Review of Systems ROS - Provider Constitutional: no fever, no chills, yes fatigue Skin:no rash, no lesions ENMT: no ear pain, no sore throat, no congestion. Respiratory: no shortness of breath, no cough, no wheezing. Cardiovascular: no chest pain, no palpitations, no edema. Gastrointestinal: no nausea, no vomiting, no diarrhea, no GI bleeding. Genitourinary: no dysuria, no frequencyno hematuria Musculoskeletal: no back pain, no trauma. Neurologic: no headache, no dizziness, no numbness, no weakness. Psychiatric: no sleeping problems, no irritability, no mood swings/depression. Heme/Lymph: no bleeding tendency, no bruising tendency, no petechiae, Allergy/Immuno logic: no seasonal allergies, no food allergies, no recurrent infections Physical Exam Vitals & Measurements HR: 102(Peripheral) RR: 16 BP: 118/68 SpO2: 98% HT: 70 in HT: 178 cm WT: 95.5 kg WT: 210.1 lb BMI: 30.14 General: alert, no acute distress Neck: Supple, noJVD nocarotid bruit Cardiovascular: irregularly-irregular rate and rhythm, no murmur normal peripheral perfusion Respiratory: Lungs CTAB, respirations non labored Extremities: no edema left lower extremity. no edema right lower extremity Neurological: oriented x 4, LOC appropriate for age, speech normal Skin: Warm, dry, intact- no rash or concerning lesions Procedure ECG today demonstrates atrial fibrillation with ventricular response rate in low 100s. Assessment/Plan 1. Afib (I48.91: Unspecified atrial fibrillation) Symptomatic longstanding persistent atrial fibrillation. Awaiting appointment with electrophysiology. Continue Eliquis for cardioembolic protection. It appears to be leniently controlled. Ordered: ECG 12 Lead Adult 2. Nonischemic cardiomyopathy Appears euvolemic by physical exam, on carvedilol, Entresto 3. History of CAD, moderate Continue statin Follow-up No qualifying data available After electrophysiology appointment Problem List/Past Medical History Ongoing Smoker Historical Anxiety Asthma Autoimmune disorder Hypertension Memory Issues Procedure/Surgical History Cardioversion (07/31/2023), Catheterization of left heart (05/08/2023), H/O splenectomy, Hip replacement, Lung. Medications albuterol carvedilol 3.125 mg Tab, 3.125 mg= 1 tab(s), Oral, BID, 3 refills Coreg 6.25 mg Tab, 6.25 mg= 1 tab(s), Oral, BID, 6 refills Eliquis 5 mg oral tablet, 5 mg= 1 tab(s), Oral, BID, 1 refills Entresto 24 mg-26 mg oral tablet, 1 tab(s), Oral, BID, 6 refills Lipitor 40 mg Tab, 40 mg= 1 tab(s), Oral, Daily, 6 refills Tylenol Allergies No Known Medication Allergies Social History Alcohol - Denies Alcohol Use, 05/08/2023 Substance Abuse - Denies Substance Abuse, 05/08/2023 Tobacco - Low Risk, 07/31/2023 5-9 cigarettes (between 1/4 to 1/2 pack)/day in last 30 days Tobacco Use:. Smokeless tobacco user within last 30 days Smokeless Tobacco Use:., 11/28/2023 Family History Heart disease: Father. Normal [facility] Comment on above: Result Comment: Elec tronically Signed By: Antonia RUBIO, Tylor Potter\.krista\Date and Time Signed: 11/28/23 12:09 EDT Cholesterol [Mass/volume] in Serum or PlasmaOrdered By: Ronaldo Castro on 11-07-2023 Cholesterol [Mass/Vol] 110 mg/dL Low 140-200 [facility] Comment on above: Chol less than 200 m g/dl low riskChol 201-239 mg/dl borderline riskChol 240 mg/dl and greater high risk Result Comment: Chol less than 200 mg/dl low risk Chol 201-239 mg/dl borderline risk Chol 240 mg/dl and greater high risk Performed By: #### V [id number], LIPID, TSH3 wRFLX #### [facility] [address] [id number] [facility] Cholesterol in LDL Calc [Mas s/Vol]Ordered By: Ronaldo Castro on 11-07-2023 Cholesterol in LDL [Mass/Vol] 61 mg/dL 0-100 [facility] Comment on above: LDL ATP III CLASSIFI CATIONLDL less than 100 mg/dL OptimalLDL 100-129 mg/dL Near or above optimalLDL 130-159 mg/dL Borderline highLDL 160-189 mg/dL HighLDL greater than 189 mg/dL Very high Cholesterol in VLDL Calc [Ma ss/Vol]Ordered By: Ronaldo Castro on 11-07-2023 Cholesterol in VLDL [Mass/Vol] 16 mg/dL [facility] ECG 12 lead ECGon 11-07-2023 ECG 12 lead ECG [facility] [place] [address] [place] [address] Electrocardiograph Report Signed Patient: Juan Carlos Noguera MR#: [id number] [birth year] : 1970 Acct:[id number] Age/Sex: 53 / M ADM Date: 11/06/23 Loc: Room: [address] [place] [address] Type: ADM IN Attending Dr: Ronaldo Castro MD Ordering Provider: Ronaldo Castro MD Date of Service: 11/07/23 ECG/ECG 12 lead ECG: recent ekg shows afib rvr Copies to: Test Reason : Blood Pressure : */* mmHG Vent. Rate : 112 BPM Atrial Rate : * BPM P-R Int : * ms QRS Dur : 88 ms QT Int : 320 ms P-R-T Axes : * 2 -2 degrees QTcB Int : 436 ms Atrial fibrillation with rapid ventricular response Abnormal ECG When compared with ECG of 07-Nov-2023 07:28, (Unconfirmed) Questionable change in QRS axis Nonspecific T wave abnormality now evident in Inferior leads Confirmed by Salvador Lira ([id number]) on 11/07/2023 10:18:08 AM Referred By: Electronically Signed By: Salvador Lira Transcribed By: MUS Signed By Salvador Lira MD 11/07/23 1018 Normal [facility] ECG 12 lead ECG [facility] [place] [address] [place] [address] Electrocardiograph Report Signed Patient: Juan Carlos Noguera MR#: [id number] 34 : 1970 Acct:[id number] Age/Sex: 53 / M ADM Date: 11/06/23 Loc: Room: [address] [place] [address] Type: ADM IN Attending Dr: Ronaldo Castro MD Ordering Provider: Ronaldo Castro MD Date of Service: 11/07/23 ECG/ECG 12 lead ECG: new admit Copies to: Test Reason : Blood Pressure : */* mmHG Vent. Rate : 111 BPM Atrial Rate : * BPM P-R Int : * ms QRS Dur : 86 ms QT Int : 288 ms P-R-T Axes : * 71 66 degrees QTcB Int : 391 ms Atrial fibrillation with rapid ventricular response with premature ventricular or aberrantly conducted complexes Abnormal ECG No previous ECGs available Confirmed by Salvador Lira ([id number]) on 11/07/2023 1:07:23 PM Referred By: Electronically Signed By: Salvador Lira Transcribed By: MUS Signed By Salvador Lira MD 11/07/23 1307 Normal [facility] Lipid Panelon 11-07-2023 LDL Cholesterol,Calculated 61 mg/dL Normal 0-100 [facility] Comment on above: Result Comment: LDL ATP III CLASSIFICATION LDL less than 100 mg/dL Optimal LDL 100-129 mg/dL Near or above optimal LDL 130-159 mg/dL Borderline high LDL 160-189 mg/dL High LDL greater than 189 mg/dL Very high Performed By: #### V [id number], LIPID, TSH3 wRFLX #### [facility] [address] Triglyceride w/Reflex 84 mg/dL Normal 0-149 [facility] Comment on above: Result Comment: TRIG ATP III CLASSIFICATION TRIG less than 150 mg/dL Normal TRIG 150-199 mg/dL Borderline high TRIG 200-500 mg/dL High TRIG greater than 500 mg/dL Very high Standard traceable to the Center for Disease Conrtrol and Prevention (CDC) test method. Performed By: #### V [id number], LIPID, TSH3 wRFLX #### [facility] [address] VLDL CHOLESTEROL 16 mg/dL Normal [facility] Comment on above: Performed By: #### V [id number], LIPID, TSH3 wRFLX #### [address] Serum or plasma high density lipoprotein (HDL) cholesterol measurementOrdered By: Ronaldo Castro on 11-07-2023 Cholesterol in HDL [Mass/Vol] 32 mg/dL Normal 23-92 [facility] Comment on above: HDL CHOL ATP-III CLA SSIFICATION Cardiovascular RiskHDL > or equal to 60 mg/dL LOWHDL < 40 mg/dL HIGH Result Comment: HDL CHOL ATP-III CLASSIFICATION Cardiovascular Risk HDL > or equal to 60 mg/dL LOW HDL < 40 mg/dL HIGH Performed By: #### V [id number], LIPID, TSH3 wRFLX #### [address] Serum or plasma total choles terol/high density lipoprotein (HDL) cholesterol mass ratOrdered By: Ronaldo Castro on 11-07-2023 Cholesterol.total/Barbara sterol in HDL [Mass ratio] 3.4 {ratio} Normal <5.0 [facility] Comment on above: Performed By: #### V [id number], LIPID, TSH3 wRFLX #### [address] Thyroid Stim Hormone w/Rflxo n 11-07-2023 Thyroid Stim Hormone w/Rflx 0.87 u[iU]/mL Normal 0.45-5.33 [facility] Comment on above: Performed By: #### V [id number], LIPID, TSH3 wRFLX #### [facility] [address] Thyrotropin [Units/volume] i n Serum or PlasmaOrdered By: Ronaldo Castro on 11-07-2023 TSH Qn 0.87 m[IU]/L 0.45-5.33 [facility] Triglyceride [Mass/volume] i n Serum or PlasmaOrdered By: Ronaldo Castro on 11-07-2023 Triglyceride [Mass/Vol] 84 mg/dL 0-149 [facility] Comment on above: TRIG ATP III CLASSIF ICATIONTRIG less than 150 mg/dL NormalTRIG 150-199 mg/dL Borderline highTRIG 200-500 mg/dL High TRIG greater than 500 mg/dL Very highStandard traceable to the Center for Disease Conrtrol and Prevention (CDC) test method. Vitamin D 25 Hydroxy Totalon 11-07-2023 Vitamin D 25 Hydroxy Total 28.2 ng/mL Low 30-100 [facility] Comment on above: Result Comment: ULISES MIN D STATUS 25(OH)VITAMIN D RANGE (ng/mL) Deficient <20 Insufficient 20 to <30 Sufficient 30 to 100 Reference: Savannah Villalobos, Sindi RAMACHANDRAN, et al. Evaluation,treatment, and prevention of vitamin D deficiency; an Endocrine Society clinical practice guideline. JCEM. 2010; 96(7):1911-30. PERFORMED BY: [place] [address] PATHOLOGIST [employer] DIMAS BUCKLEY M.D. Performed By: #### V [id number], LIPID, TSH3 wRFLX #### [facility] [address] Vitamin D+Metabolites [Mass/ volume] in Serum or PlasmaOrdered By: Ronaldo Castro on 11-07-2023 Vitamin D+Metabolites [Mass/Vol] 28.2 ng/mL Low 30-100 [facility] Comment on above: VITAMIN D STATUS 25( [place])VITAMIN D RANGE (ng/mL) Deficient <20 Insufficient 20 to <30Sufficient 30 to 100Reference: Savannah Villalobos, Gordon-Donell RAMACHANDRAN, et al. Evaluation,treatment, and prevention of vitamin D deficiency; an Endocrine Society clinical practice guideline. JCEM. 2010; 96(7):1911-30. Alanine aminotransferase [En zymatic activity/volume] in Serum or PlasmaOrdered By: Gem Mcintosh on 11-06-2023 ALT [Catalytic activity/Vol] 14 U/L Normal 7-52 [facility] Comment on above: Performed By: #### C MP, ETOH, CBC ####[facility] [id number] [place] [id number] [facility] Albumin [Mass/volume] in Ser um or Plasma by Bromocresol green (BCG) dye binding methoOrdered By: Gem Mcintosh on 11-06-2023 Albumin BCG dye [Mass/Vol] 4.3 g/dL 3.5-5.7 [facility] Alkaline phosphatase [Enzyma tic activity/volume] in Serum or PlasmaOrdered By: Gem Mcintosh on 11-06-2023 ALP [Catalytic activity/Vol] 61 U/L Normal 34-104 [facility] Comment on above: Performed By: #### C MP, ETOH, CBC ####[place] [address] [place] [address] [facility] Amphetamine Screen Ql (U)Ord ered By: Gem Mcintosh on 11-06-2023 Amphetamines Ql (U) Negative Negative [facility] Aspartate aminotransferase [ Enzymatic activity/volume] in Serum or PlasmaOrdered By: Gem Mcintosh on 11-06-2023 AST [Catalytic activity/Vol] 15 U/L Normal 13-39 [facility] Comment on above: Performed By: #### C MP, ETOH, CBC ####[facility] [place] [address] [facility] Automated basophil %Ordered By: Gem Mcintosh on 11-06-2023 Basophils/100 WBC (Bld) 1.2 % Normal . [facility] Comment on above: Performed By: #### C MP, ETOH, CBC ####[facility] [place] [address] [facility] Automated basophil countOrde red By: Gem Mcintosh on 11-06-2023 Basophils (Bld) [#/Vol] 0.2 10*3/uL Normal 0.0-0.2 [facility] Comment on above: Result Comment: PERF ORMED BY: [facility] [address] [place] [address] PATHOLOGIST [employer] DIMAS BUCKLEY M.D. Performed By: #### C MP, ETOH, CBC ####[address] Automated blood monocyte cou ntOrdered By: Gem Mcintosh on 11-06-2023 Monocytes (Bld) [#/Vol] 1.3 10*3/uL High 0.0-0.8 [facility] Comment on above: Performed By: #### C MP, ETOH, CBC ####[address] Automated eosinophil %Ordere d By: Gem Mcintosh on 11-06-2023 Eosinophils/100 WBC (Bld) 1.2 % Normal . [facility] Comment on above: Performed By: #### C MP, ETOH, CBC ####[address] Automated eosinophil countOr dered By: Gem Mcintosh on 11-06-2023 Eosinophils (Bld) [#/Vol] 0.2 10*3/uL Normal 0.0-0.45 [facility] Comment on above: Performed By: #### C MP, ETOH, CBC ####[address] Automated epithelial cells c ount in urine sediment (number/area)Ordered By: Gem Mcintosh on 11-06-2023 Epithelial cells Auto (Urine sed) [#/Area] 1-2 [HPF] 0-2 [facility] Automated monocyte %Ordered By: Gem Mcintosh on 11-06-2023 Monocytes/100 WBC (Bld) 9.6 % Normal . [facility] Comment on above: Performed By: #### C MP, ETOH, CBC ####[address] Automated neutrophil %Ordere d By: Gem Mcintosh on 11-06-2023 Neutrophils/100 WBC (Bld) 66.4 % Normal . [facility] Comment on above: Performed By: #### C MP, ETOH, CBC ####[facility] [id number] [address] Bacteria [Presence] in Urine by AutomatedOrdered By: Gem Mcintosh on 11-06-2023 Bacteria Auto Ql (U) None seen [HPF] None Seen [facility] Barbiturates [Presence] in U rine by Screen methodOrdered By: Gem Mcintosh on 11-06-2023 Barbiturates Screen Ql (U) Negative Negative [facility] Benzodiazepines Screen Ql (U )Ordered By: Gem Mcintosh on 11-06-2023 Benzodiazepines Ql (U) Negative Negative [facility] Benzoylecgonine [Presence] i n Urine by Screen methodOrdered By: Gem Mcintosh on 11-06-2023 Benzoylecgonine Screen Ql (U) Negative Negative [facility] Bilirubin Test strip Ql (U)O rdered By: Gem Mcintosh on 11-06-2023 Bilirubin Ql (U) Negative Negative [facility] Bilirubin.total [Mass/volume ] in Serum or PlasmaOrdered By: Gem Mcintosh on 11-06-2023 Bilirubin [Mass/Vol] 0.6 mg/dL Normal 0.3-1.0 [facility] Comment on above: Performed By: #### C MP, ETOH, CBC ####[facility] [id number] [address] COVID CepheidOrdered By: Emigdio Mcintosh on 11-06-2023 SARS-CoV-2 (COVID-19) Ab IA Ql Negative Negative [facility] Comment on above: This is a duplicate Cepheid Xpert Xpress CoV-2/Flu/RSV Plus RNA by RT-PCR result to be used for statistical tracking purpose only. SARS-CoV-2 (COVID-19) RNA ARAVIND+probe Ql (Unsp spec) [facility] COVID-19 / Flu A/B / RSV PCR on 11-06-2023 SARS-CoV-2 (COVID-19) RNA ARAVIND+probe Ql (Unsp spec) COVID-19 Cepheid Result Negative for SARS-CoV-2 RNA by RT-PCR Flu A Cepheid Result Negative for Flu A RNA by RT-PCR Flu B Cepheid Result Negative for Flu B RNA by RT-PCR RSV Cepheid Result Negative for RSV RNA by RT-PCR COVID19 Blank Space Reference: Negative COVID19 Blank Space Cepheid Disclaimer The Cepheid Xpert Xpress CoV-2/Flu/RSV Plus has Cepheid Disclaimer not been FDA cleared or approved; this test has Cepheid Disclaimer been authorized by FDA under an EUA for use by Cepheid Disclaimer authorized laboratories; this test has been Cepheid Disclaimer authorized only for the simultaneous qualitative Cepheid Disclaimer detection and differentiation of nucleic acids from Cepheid Disclaimer SARS-CoV-2, influenza A, influenza B, and Cepheid Disclaimer respiratory syncytial virus (RSV), and not for any Cepheid Disclaimer other viruses or pathogens; and this test is only Cepheid Disclaimer authorized for the duration of the declaration that Cepheid Disclaimer circumstances exist justifying the authorization of Cepheid Disclaimer emergency use of in vitro diagnostic tests for Cepheid Disclaimer detection and/or diagnosis of COVID-19 under Cepheid Disclaimer Section 564(b)(1) of the Act, 21 U.S.C. 360bbb- Cepheid Disclaimer 3(b)(1), unless the authorization is terminated or Cepheid Disclaimer revoked sooner. PERFORMED BY: [facility] [place] [address] PATHOLOGIST [employer]OM[employer] DIMAS BUCKLEY M.D. Normal [facility] Comment on above: Performed By: #### C OVID19 FLU RSV, CEPHEID NEG ####[place] [address] [place] [id number] [facility] Calcium [Mass/volume] in Ser um or PlasmaOrdered By: Gem Mcintosh on 11-06-2023 Calcium [Mass/Vol] 9.0 mg/dL Normal 8.6-10.3 [facility] Comment on above: Performed By: #### C MP, ETOH, CBC ####[address] Cannabinoids [Presence] in U rine by Screen methodOrdered By: Gem Mcintosh on 11-06-2023 Cannabinoids Screen Ql (U) Negative Negative [facility] Comment on above: These are unconfirme d results and should not be used for legal purposes. Drug Cut-Off Concentration: AMPH 1000 ng/mL WILLIAM 200 ng/mL SALIMA 200 ng/mL COCM 300 ng/mL OP 300 ng/mL PCP 25 ng/mL THC 20 ng/mL Carbon dioxide, total [Moles /volume] in Serum or PlasmaOrdered By: Gem Mcintosh on 11-06-2023 CO2 [Moles/Vol] 29.4 mmol/L Normal 21.0-31.0 [facility] Comment on above: Performed By: #### C MP, ETOH, CBC ####[address] Cepheid COVID PCR Negativeon 11-06-2023 SARS-CoV-2 (COVID-19) RNA ARAVIND+probe Ql (Unsp spec) Negative Normal Negative [facility] Comment on above: Result Comment: This is a duplicate Cepheid Xpert Xpress CoV-2/Flu/RSV Plus RNA by RT-PCR result to be used for statistical tracking purpose only. PERFORMED BY: [facility] [address] [place] [address] PATHOLOGIST [employer] DIMAS BUCKLEY M.D. Performed By: #### C OVID19 FLU RSV, CEPHEID NEG ####[place] [id number] [facility] Chloride [Moles/volume] in S seamus or PlasmaOrdered By: Gem Mcintosh on 11-06-2023 Chloride [Moles/Vol] 102 mmol/L Normal 98-107 [facility] Comment on above: Performed By: #### C MP, ETOH, CBC ####[place] [address] Color of Urine by AutoOrdere d By: Gem Mcintosh on 11-06-2023 Color (U) Yellow Normal Yellow [facility] Comment on above: Order Comment: Name Collection Type:: Clean-Voided Midstream Performed By: #### U RDS, ADDONUAPLUS #### [facility] [address] Complete Blood Count Auto Di ffon 11-06-2023 Mean Corpuscular HGB Conc 33.8 g/dL Normal 32.5-35.6 [facility] Comment on above: Performed By: #### C MP, ETOH, CBC ####[place] [address] Monocytes/100 WBC (Bld) 16.55 % Normal 0.00-20.00 [facility] Comment on above: Performed By: #### C MP, ETOH, CBC ####[place] [address] NRBC% 0.1 /100{WBC} Normal 0-0.5 [facility] Comment on above: Performed By: #### C MP, ETOH, CBC ####[place] [address] Comprehensive Metabolic Pane du 11-06-2023 Albumin [Mass/Vol] 4.3 g/dL Normal 3.5-5.7 [facility] Comment on above: Performed By: #### C MP, ETOH, CBC ####[place] [address] Creatinine Clr Calc Pharmacy 99.02 Normal [facility] Comment on above: Result Comment: PERF ORMED BY: [facility] [address] [place] [address] PATHOLOGIST [employer] DIMAS BUCKLEY M.D. Performed By: #### C MP, ETOH, CBC ####[facility] [place] [address] [place] GFR/1.73 sq M.predicted MDRD (S/P/Bld) [Vol rate/Area] mL/min/{1.73_m2} Normal [facility] Comment on above: Performed By: #### C MP, ETOH, CBC ####[facility] [place], [place] [id number] [facility] Creatinine [Mass/volume] in Serum or PlasmaOrdered By: Gem Mcintosh on 11-06-2023 Creatinine [Mass/Vol] 0.98 mg/dL Normal 0.70-1.30 [facility] Comment on above: Performed By: #### C MP, ETOH, CBC ####[place] [address] [place] Dipstick and Microscopicon 0 11-06-2023 Appearance (U) Clear Normal Clear [facility] Comment on above: Order Comment: Name Collection Type:: Clean-Voided Midstream Performed By: #### U RDS, ADDONUAPLUS #### [facility] [address] [place] [address] [place] Bacteria,Urine None Seen Normal None Seen [facility] Comment on above: Order Comment: Name Collection Type:: Clean-Voided Midstream Performed By: #### U RDS, ADDONUAPLUS #### [facility] [address] [place] [id number] [place] Bilirubin,Urine Negative Normal Negative [facility] Comment on above: Order Comment: Name Collection Type:: Clean-Voided Midstream Performed By: #### U RDS, ADDONUAPLUS #### [facility] [address] [place] [id number] [place] Glucose Ql (U) Normal Normal Normal [facility] Comment on above: Order Comment: Name Collection Type:: Clean-Voided Midstream Performed By: #### U RDS, ADDONUAPLUS #### [facility] [address] [place] [id number] [place] Hyaline Casts,Urine 0-8 Normal 0-8 [facility] Comment on above: Order Comment: Name Collection Type:: Clean-Voided Midstream Result Comment: PERF ORMED BY: [place] [address] PATHOLOGIST [employer]OMOTIVE [employer] DIMAS BUCKLEY M.D. Performed By: #### U RDS, ADDONUAPLUS #### [address] Ketones Ql (U) Trace High Negative [facility] Comment on above: Order Comment: Name Collection Type:: Clean-Voided Midstream Performed By: #### U RDS, ADDONUAPLUS #### [place] [address] [place] Leukocyte esterase Test strip Ql (U) Negative Normal Negative [facility] Comment on above: Order Comment: Name Collection Type:: Clean-Voided Midstream Performed By: #### U RDS, ADDONUAPLUS #### [place] [address] [place] Nitrite,Urine Negative Normal Negative [facility] Comment on above: Order Comment: Name Collection Type:: Clean-Voided Midstream Performed By: #### U RDS, ADDONUAPLUS #### [place] [address] [place] Occult Blood,Urine Negative Normal Negative [facility] Comment on above: Order Comment: Name Collection Type:: Clean-Voided Midstream Result Comment: PERF ORMED BY: [place] [address] PATHOLOGIST [employer]OM[employer]IVE [employer] DIMAS BUCKLEY M.D. Performed By: #### U RDS, ADDONUAPLUS #### [place] [address] [place] RBC,Urine 1-2 Normal 0-4 [facility] Comment on above: Order Comment: Name Collection Type:: Clean-Voided Midstream Performed By: #### U RDS, ADDONUAPLUS #### [place] [address] [place] Specificy [place],Urine 1.017 Normal 1.001-1.030 [facility] Comment on above: Order Comment: Name Collection Type:: Clean-Voided Midstream Performed By: #### U RDS, ADDONUAPLUS #### [place] [address] [place] Squamous Epithelial Cell,Urine 1-2 Normal 0-2 [facility] Comment on above: Order Comment: Name Collection Type:: Clean-Voided Midstream Performed By: #### U RDS, ADDONUAPLUS #### [place] [address] [place] Urobilinogen,Urine Normal Normal Normal [facility] Comment on above: Order Comment: Name Collection Type:: Clean-Voided Midstream Performed By: #### U RDS, ADDONUAPLUS #### [place] [address] [place] WBC,Urine 1-2 Normal 0-4 [facility] Comment on above: Order Comment: Name Collection Type:: Clean-Voided Midstream Performed By: #### U RDS, ADDONUAPLUS #### [address] Drug Screen,Urineon 11-06-19 24 Amphetamine Screen,Urine Negative Normal Negative [facility] Comment on above: Performed By: #### U RDS, ADDONUAPLUS #### [address] Barbiturate Screen,Urine Negative Normal Negative [facility] Comment on above: Performed By: #### U RDS, ADDONUAPLUS #### [place] [address] [place] Benzodiazepines Screen,Urine Negative Normal Negative [facility] Comment on above: Performed By: #### U RDS, ADDONUAPLUS #### [address] Cannabinoid Screen,Urine Negative Normal Negative [facility] Comment on above: Result Comment: Thes e are unconfirmed results and should not be used for legal purposes. Drug Cut-Off Concentration: AMPH 1000 ng/mL WILLIAM 200 ng/mL SALIMA 200 ng/mL COCM 300 ng/mL OP 300 ng/mL PCP 25 ng/mL THC 20 ng/mL PERFORMED BY: [place] [address] PATHOLOGIST AUTOM[employer]IVE [employer] DIMAS BUCKLEY M.D. Performed By: #### U RDS, ADDONUAPLUS #### [address] Cocaine Screen,Urine Negative Normal Negative [facility] Comment on above: Performed By: #### U RDS, ADDONUAPLUS #### [address] Opiate Screen,Urine Negative Normal Negative [facility] Comment on above: Performed By: #### U RDS, ADDONUAPLUS #### [address] Phencyclidine Screen,Urine Negative Normal Negative [facility] Comment on above: Performed By: #### U RDS, ADDONUAPLUS #### [address] Erythrocyte distribution wid th [Ratio] by Automated countOrdered By: Gem Mcintosh on 11-06-2023 Erythrocyte distribution width (RBC) [Ratio] 13.6 % Normal 12.0-14.8 [facility] Comment on above: Performed By: #### C MP, ETOH, CBC ####[address] Erythrocytes [#/area] in Uri ne sediment by Automated countOrdered By: Gem Mcintosh on 11-06-2023 RBC Auto (Urine sed) [#/Area] 1-2 [HPF] 0-4 [facility] Erythrocytes [#/volume] in B lood by Automated countOrdered By: Gem Mcintosh on 11-06-2023 RBC (Bld) [#/Vol] 4.61 10*6/uL Normal 3.90-5.60 [facility] Comment on above: Performed By: #### C MP, ETOH, CBC ####[facility] [id number] [place] [address] Ethanol [Mass/volume] in Ser um or PlasmaOrdered By: Gem Mcintosh on 11-06-2023 Ethanol [Mass/Vol] mg/dL Normal [facility] Comment on above: Performed By: #### C MP, ETOH, CBC ####[facility] [place] [address] [facility] Ethanol [Mass/Vol] TNP [facility] Comment on above: Test not performed Ethyl Alcohol Profileon 10-22 Percent Ethanol Not performed Normal [facility] Comment on above: Result Comment: PERF ORMED BY: [facility] [address] [place] [place] [id number] PATHOLOGIST AUTOM[employer]IVE [employer] DIMAS BUCKLEY M.D. Performed By: #### C MP, ETOH, CBC ####[place] [address] [place] [id number] [facility] Glucose [Mass/volume] in Ser um or PlasmaOrdered By: Gem Mcintosh on 11-06-2023 Glucose [Mass/Vol] 101 mg/dL High 70-100 [facility] Comment on above: ADA recommended refe rence rangeRandom Glucose Reference Range is dependent on time and content of last meal. Glucose of more than 200 mg/dL in a nonstressed, ambulatory subject supports the diagnosis of Diabetes Mellitus. Result Comment: [place] om Glucose Reference Range is dependent on time and content of last meal. Glucose of more than 200 mg/dL in a nonstressed, ambulatory subject supports the diagnosis of Diabetes Mellitus. ADA recommended reference range Performed By: #### C MP, ETOH, CBC ####[place] [address] [place] [id number] [facility] Hematocrit [Volume Fraction] of Blood by Automated countOrdered By: Gem Mcintosh on 11-06-2023 Hematocrit (Bld) [Volume fraction] 42.2 % Normal 38.8-50.0 [facility] Comment on above: Performed By: #### C MP, ETOH, CBC ####[place] [address] [place] [id number] [facility] Hemoglobin [Mass/volume] in BloodOrdered By: Gem Mcintosh on 11-06-2023 Hemoglobin (Bld) [Mass/Vol] 14.2 g/dL Normal 13.0-17.0 [facility] Comment on above: Performed By: #### C MP, ETOH, CBC ####[facility] [id number] Ketones Auto test strip (U) [Mass/Vol]Ordered By: Gem Mcintosh on 11-06-2023 Ketones (U) [Mass/Vol] Trace High Negative [facility] - UrinalysisOrder ed By: Gem Mcintosh on 11-06-2023 Hyaline casts LM Ql (Urine sed) 0-8 [LPF] 0-8 [facility] Leukocytes [#/area] in Urine sediment by Automated countOrdered By: Gem Mcintosh on 11-06-2023 WBC Auto (Urine sed) [#/Area] 1-2 [HPF] 0-4 [facility] Leukocytes [#/volume] correc nicko for nucleated erythrocytes in Blood by Automated counOrdered By: Gem Mcintosh on 11-06-2023 WBC corrected for nucl RBC Auto (Bld) [#/Vol] 13.5 10*3/uL High 4.1-10.5 [facility] Leukocytes [#/volume] in Blo od by Automated countOrdered By: Gem Mcintosh on 11-06-2023 WBC (Bld) [#/Vol] 13.5 10*3/uL High 4.1-10.5 [facility] Comment on above: Performed By: #### C MP, ETOH, CBC ####[facility] [id number] [address] Lymphocytes [#/volume] in Bl ood by Automated countOrdered By: Gem Mcintosh on 11-06-2023 Lymphocytes (Bld) [#/Vol] 2.9 10*3/uL Normal 1.00-4.8 [facility] Comment on above: Performed By: #### C MP, ETOH, CBC ####[facility] [id number] [place] [address] [place] Lymphocytes/100 leukocytes i n Blood by Automated countOrdered By: Gem Mcintosh on 11-06-2023 Lymphocytes/100 WBC (Bld) 21.6 % Normal . [facility] Comment on above: Performed By: #### C MP, ETOH, CBC ####[facility] [id number] MCH [Entitic mass] by Automa nicko countOrdered By: Gem Mcintosh on 11-06-2023 MCH (RBC) [Entitic mass] 30.9 pg Normal 27.5-35.2 [facility] Comment on above: Performed By: #### C MP, ETOH, CBC ####[place] [address] MCHC Auto (RBC) [Mass/Vol]Or dered By: Gem Mcintosh on 11-06-2023 MCHC (RBC) [Mass/Vol] 33.8 g/dL 32.5-35.6 [facility] MCV [Entitic volume] by Auto mated countOrdered By: Gem Mcintosh on 11-06-2023 MCV (RBC) [Entitic vol] 91.6 fL Normal 83.5-101 [facility] Comment on above: Performed By: #### C MP, ETOH, CBC ####[place] [address] Monocyte distribution width [Entitic volume] in Blood by AutomatedOrdered By: Gem Mcintosh on 11-06-2023 Monocyte distribution width Auto (Bld) [Entitic vol] 16.55 % 0.00-20.00 [facility] Neutrophils [#/volume] in Bl ood by Automated countOrdered By: Gem Mcintosh on 11-06-2023 Neutrophils (Bld) [#/Vol] 9.0 10*3/uL High 1.8-7.7 [facility] Comment on above: Performed By: #### C MP, ETOH, CBC ####[address] Nitrite Test strip Ql (U)Ord ered By: Gem Mcintosh on 11-06-2023 Nitrite Ql (U) Negative Negative [facility] No Panel InformationOrdered By: Gem Mcintosh on 11-06-2023 Estimated GFR (CKD-EPI) > 60.0 mL/Min [facility] Creatinine Clearance (Chem 99.02 [facility] Nucleated erythrocytes [Pres ence] in Blood by Automated countOrdered By: Gem Mcintosh on 11-06-2023 Nucleated RBC Auto Ql (Bld) 0.1 /100{WBC} 0-0.5 [facility] Opiates [Presence] in Urine by Screen methodOrdered By: Gem Mcintosh on 11-06-2023 Opiates Screen Ql (U) Negative Negative [facility] Phencyclidine Screen Ql (U)O rdered By: Gem Mcintosh on 11-06-2023 Phencyclidine Ql (U) Negative Negative [facility] Platelet mean volume [Entiti c volume] in Blood by Automated countOrdered By: Gem Mcintosh on 11-06-2023 Platelet mean volume (Bld) [Entitic vol] 8.3 fL Normal 6.6-10.1 [facility] Comment on above: Performed By: #### C MP, ETOH, CBC ####[place] [address] [place] [id number] [facility] Platelets [#/volume] in Bloo d by Automated countOrdered By: Gem cMintosh on 11-06-2023 Platelets (Bld) [#/Vol] 350 10*3/uL Normal 150-450 [facility] Comment on above: Performed By: #### C MP, ETOH, CBC ####[place] [address] [place] [phone] [place] Potassium [Moles/volume] in Serum or PlasmaOrdered By: Gem Mcintosh on 11-06-2023 Potassium [Moles/Vol] 4.2 mmol/L Normal 3.5-5.1 [facility] Comment on above: Performed By: #### C MP, ETOH, CBC ####[place] [id number] [place] Protein [Mass/volume] in Ser um or PlasmaOrdered By: Gem Mcintosh on 11-06-2023 Protein [Mass/Vol] 6.7 g/dL Normal 6.4-8.9 [facility] Comment on above: Performed By: #### C MP, ETOH, CBC ####[place] [id number] [facility] Serum globulin measurement b y calculation (mass/volume)Ordered By: Gem Mcintosh on 11-06-2023 Globulin (S) [Mass/Vol] 2.4 g/dL Normal [facility] Comment on above: Performed By: #### C MP, ETOH, CBC ####[place] [address] Serum or plasma albumin/glob ulin mass ratioOrdered By: Gem Mcintosh on 11-06-2023 Albumin/Globulin [Mass ratio] 1.8 {ratio} Normal [facility] Comment on above: Performed By: #### C MP, ETOH, CBC ####[address] Serum or plasma anion gap de terminationOrdered By: Gem Mcintosh on 11-06-2023 Anion gap [Moles/Vol] 9.8 mmol/L Normal 6.0-15.0 [facility] [facility] Comment on above: Performed By: #### C MP, ETOH, CBC ####[address] Sodium [Moles/volume] in Ser um or PlasmaOrdered By: Gem Mcintosh on 11-06-2023 Sodium [Moles/Vol] 137 mmol/L Normal 136-145 [facility] Comment on above: Performed By: #### C MP, ETOH, CBC ####[address] Specific gravity Auto test s trip (U) [Rel density]Ordered By: Gem Mcintosh on 11-06-2023 Specific gravity (U) [Rel density] 1.017 1.001-1.030 [facility] Urea nitrogen [Mass/volume] in Serum or PlasmaOrdered By: Gem Mcintosh on 11-06-2023 Urea nitrogen [Mass/Vol] 9 mg/dL Normal 7-25 [facility] Comment on above: Performed By: #### C MP, ETOH, CBC ####[address] Urine clarity by refractomet ry automatedOrdered By: Gem Mcintosh on 11-06-2023 Clarity Refractometry automated (U) Clear Clear [facility] Urine glucose measurement by automated test strip (mass/volume)Ordered By: Gem Mcintosh on 11-06-2023 Glucose Auto test strip (U) [Mass/Vol] Normal mg/dL Normal [facility] Urine hemoglobin detection b y automated test stripOrdered By: Gem Mcintosh on 11-06-2023 Hemoglobin Auto test strip Ql (U) Negative Negative [facility] Urine leukocyte esterase det ection by automated test stripOrdered By: Gem Mcintosh on 11-06-2023 Leukocyte esterase Auto test strip Ql (U) Negative Negative [facility] Urine pH measurement by auto mated test stripOrdered By: Gem Mcintosh on 11-06-2023 pH (U) 6.0 [pH] Normal 5.0-9.0 [facility] Comment on above: Order Comment: Name Collection Type:: Clean-Voided Midstream Performed By: #### U SHAHRAM, ADDONUAPLUS #### [facility] [address] [place] [address] Urine protein measurement by automated test strip (mass/volume)Ordered By: Gem Mcintosh on 11-06-2023 Protein (U) [Mass/Vol] 30 mg/dL High Negative [facility] Comment on above: Order Comment: Name Collection Type:: Clean-Voided Midstream Performed By: #### U SHAHRAM, ADDONUAPLUS #### [facility] [address] [place] [address] Urobilinogen Auto test strip (U) [Mass/Vol]Ordered By: Gem Mcintosh on 11-06-2023 Urobilinogen (U) [Mass/Vol] Normal mg/dL Normal [facility] XR chest 2V*on 11-06-2023 XR chest 2V* [facility] [place] [address] [place] [address] XRay Report Signed Patient: Juan Carlos Noguera MR#: [id number] : 1970 Acct:[id number] Age/Sex: 53 / M ADM Date: 11/06/23 Loc: ER Room: Type: [facility] ER Attending Dr: Copies to: Gem Mcintosh MD Ordering Provider: Gem Mcintosh MD Date of Service: 11/06/23 XR/XR chest 2V*: leukocytosis, r/o pna PA AND LATERAL CHEST: CLINICAL HISTORY: Leukocytosis. Suicidal ideation. COMPARISON: None Possible granuloma seen at the periphery of the left midlung. There is mild hyperinflation. There is no focal parenchymal consolidation, effusion or pneumothorax. The cardiac, hilar and mediastinal silhouettes are within normal limits. There is no vascular congestion. The visualized bony thorax is intact. XR/XR chest 2V* IMPRESSION: NO ACUTE CARDIOPULMONARY ABNORMALITY. Impression dictated by: Ophelia Parra M.D.11/06/2023 1:04 PM Dictation Location: [facility]--12 Transcribed By: KATRINA 11/06/23 1304 Dictated By: Ophelia Parra MD 11/06/23 1304 Signed By: 11/06/23 1304 Normal [facility] Heart and Vascular Office/Cl inic Noteon 10-07-2023 Heart and Vascular Office/Clinic Note Heart and Vascular Office/Clinic Note Chief Complaint c/o fatigue History of Present Illness The patient is a 52-year-old male with past cardiac history of mild to moderate coronary artery disease, diagnosed at the cardiac catheterization in 2023 in the context of new onset cardiomyopathy, history of paroxysmal atrial fibrillation with failed cardioversion, alcohol abuse, who presents today for an appointment due to significant fatigue. He was referred to clinical cardiac electrophysiology and is currently waiting for an appointment. Sleep study showed no evidence of obstructive sleep apnea. He presents with complaints of worsening fatigue. Reports no weight gain. Denies any chest pain or discomfort. He is scheduled to see electrophysiology now in October. Review of Systems ROS - Provider Constitutional: no fever, no chills, no sweats, no weakness. Positive for fatigue Respiratory: no shortness of breath, no cough Cardiovascular: no chest pain Neuro: no dizziness. no loss of consciousness Physical Exam Vitals & Measurements HR: 99(Peripheral) RR: 16 BP: 128/80 SpO2: 96% HT: 70 in HT: 178 cm WT: 96.2 kg WT: 211.64 lb BMI: 30.36 General: alert, no acute distress Neck: Supple, noJVD nocarotid bruit Cardiovascular: irregularly-irregular rate and rhythm, no murmur normal peripheral perfusion Respiratory: Lungs CTAB, respirations non labored Extremities: no edema left lower extremity. no edema right lower extremity Neurological: oriented x 4, LOC appropriate for age, speech normal Skin: Warm, dry, intact- no rash or concerning lesions Assessment/Plan 1. Atrial fibrillation (I48.91: Unspecified atrial fibrillation) Continue current management. Will obtain a 48 hours Holter monitor to look at heart rate dynamics Ordered: Holter Monitor 48 hr 2.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 30:46) BMI 31.25 (JULY 30:46) Measurements from flowsheet : Measurements 07/31/2023 6:46 EDT Height/Length Measured 178 cm Height/Length Dosing 178.0 cm Adarsh (more content not included)... [facility] Comment on above: Result Comment: Elec tronically Signed By: Oswaldo Tomkpins DO\.br\Date and Time Signed: 07/31/23 07:28 EDT Outside [facility] 07-30-2023 Outside Labs [id number] 30 [id number]#1.0 0TIFF [facility] Outside Labs [id number] 30 [id number]#1.0 0TIFF [facility] Physician Orderon 07-28-2023 Physician Order [id number]#1. 00TIFF [facility] Heart and Vascular Office/Cl inic Noteon 07-27-2023 Heart and Vascular Office/Clinic Note Chief Complaint s/p heart cath History of Present Illness Juan Carlos Noguera presents for evaluation of multiple medical concerns. He reports numbness in his arm, and his suggested a potential connection to alcohol consumption. Consequently, he ceased drinking at the end of 09/2022. He consulted the eye doctor due to blurry vision, who prescribed a new prescription because he had double vision. His current lifestyle is not conducive to good health and is characterized by unsettling dreams, a lack of motivation, and persistent fatigue. His current lifestyle is not conducive to good health, with recent vivid dreams and a noticeable lack of energy. 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 Blood work was conducted, but results are pending. Dr. Jennifer Avery scheduled him for an EKG, EEG, and head MRI, suspecting a potential stroke. Subsequently, he underwent a cognitive test at [facility] due to reported memory disturbances. He recently refilled his losartan medication. Review of Systems Constitutional: no fever, no [...] noncontributory Physical Exam Vitals & Measurements HR: 52(Peripheral) BP: 124/90 SpO2: 91% HT: 70 in HT: 178 cm WT: 101.3 kg WT: 222.86 lb BMI: 31.97 General: alert, no acute distress Skin: warm, [...] age, normal judgement, normal psychiatric thoughts. Assessment/Plan Non-Ischemic Cardiomyoapthy He has some blockage, but not enough to make his heart weak. There are not many possibilities for it. One is a genetic predisposition called idiopathic cardiomyopathy. Another is that he has an arrhythmia that caused A. fib. Alcohol can cause cardiomyopathy. I will change his medications. We will double the losartan to 50 mg instead of 25 mg. . After 2 days, he will start the Entresto. I will start him on spironolactone. Follow-up The patient will follow up in [address] Morales. Portions of this record may have been created with voice recognition artificial intelligence software, specifically [employer], [employer] and or [employer]. Substitutions may have occurred due to the inherent limitations of voice recognition and artificial intelligence software. ATTESTATION: Documentation services were performed after patient or guardian consented to allow [employer] to record this visit. ESTEFANIA health communications specialist and provider reviewed before signing. ESTEFANIA: Lisseth Pavon Follow-up No qualifying data available Problem List/Past Medical History Ongoing Smoker Historical Anxiety Asthma Autoimmune disorder Hypertension Memory Issues Procedure/Surgical History Catheterization of left heart (05/08/2023), H/O splenectomy, Hip replacement, Lung. Medications albuterol carvedilol 3.125 mg Tab, 3.125 mg= 1 tab(s), Oral, BID, 3 refills Eliquis 5 mg oral tablet, 5 mg= 1 tab(s), Oral, BID, 3 refills losartan 25 mg Tab, 25 mg= 1 tab(s), Oral, Daily, 3 refills losartan 50 mg Tab, 50 mg= 1 tab(s), Oral, Daily, 6 refills spironolactone 25 mg Tab, 25 mg= 1 tab(s), Oral, Daily, 6 refills Tylenol Allergies No Known Medication Allergies Social History Alcohol - Denies Alcohol Use, 05/08/2023 Substance Abuse - Denies Substance Abuse, 05/08/2023 Tobacco - Low Risk, 05/08/2023 5-9 cigarettes (between 1/4 to 1/2 pack)/day in last 30 days Tobacco Use:. Smokeless tobacco user within last 30 days Smokeless Tobacco Use:., 05/30/2023 Family History Heart disease: Father. [facility] Comment on above: Result Comment: Elec tronically Signed By: Isaura RUBIO, Zeb Reza\.br\Date and Time Signed: 07/27/23 19:26 EDT\.br\Electronically Co-Signed By: Lisseth Pavon\.br\Date and Time Co-Signed: 05/30/23 16:48 EST Electrocardiogram - 12 leado n 07-25-2023 Electrocardiogram - 12 lead [id number]#1 .00TIFF [facility] Heart and Vascular Office/Cl inic Noteon 07-25-2023 Heart and Vascular Office/Clinic Note Chief Complaint patient here for f/u after medication changes History of Present Illness The patient is a 52-year-old male with past cardiac history of mild to moderate coronary artery disease, diagnosed at the cardiac catheterization this year in the context of new onset cardiomyopathy, history of atrial fibrillation of unknown duration, history of remote alcohol abuse, who presents today for a scheduled follow-up appointment. He was started on guideline recommended medical therapy, however is not feeling too well, specifically, he has been bothered by significant weakness, fatigue, dizziness and lightheadedness. He reports no chest pain, but admits to heavy left arm numbness. He states compliance with the current treatment plan. For some reason, he still on aspirin, even though he is on anticoagulation with Eliquis. Review of Systems 12 Point review of system was obtained, and if not specified above, is unremarkable. Physical Exam Vitals & Measurements HR: 115(Peripheral) BP: 122/82 SpO2: 100% HT: 70 in HT: 178 cm WT: 99.6 kg WT: 219.12 lb BMI: 31.44 General: alert, no acute distress Neck: Supple, noJVD nocarotid bruit Cardiovascular: irregularly-irregular rate and rhythm, no murmur normal peripheral perfusion Respiratory: Lungs CTAB, respirations non labored Extremities: no edema left lower extremity. no edema right lower extremity Neurological: oriented x 4, LOC appropriate for age, speech normal Skin: Warm, dry, intact- no rash or concerning lesions Procedure ECG was performed today in the office and demonstrates atrial fibrillation with rapid ventricular response. Assessment/Plan 1. Symptomatic paroxysmal atrial fibrillation. The patient has been on anticoagulation consistently. We will set up a DC cardioversion. Will consider referral to clinical cardiac electrophysiology for consideration of atrial fibrillation ablation. Continue Eliquis. 2. History of mild to moderate CAD. Would recommend starting Lipitor 40 mg. No role for aspirin, as the patient is on anticoagulation. 3. History of moderate cardiomyopathy, probably, of arrhythmic etiology. He appears euvolemic by physical exam. As the patient is quite concerned about side effects of spironolactone, I think we can stop it. Will continue carvedilol and sacubitril/valsartan. I will see the patient at the time of the cardioversion. Follow-up No qualifying data available Problem List/Past Medical History Ongoing Smoker Historical Anxiety Asthma Autoimmune disorder Hypertension Memory Issues Procedure/Surgical History Catheterization of left heart (05/08/2023), H/O splenectomy, Hip replacement, Lung. Medications albuterol carvedilol 3.125 mg Tab, 3.125 mg= 1 tab(s), Oral, BID, 3 refills Eliquis 5 mg oral tablet, 5 mg= 1 tab(s), Oral, BID, 3 refills Entresto 24 mg-26 mg oral tablet, 1 tab(s), Oral, BID, 6 refills Tylenol Allergies No Known Medication Allergies Social History Alcohol - Denies Alcohol Use, 05/08/2023 Substance Abuse - Denies Substance Abuse, 05/08/2023 Tobacco - Low Risk, 05/08/2023 5-9 cigarettes (between 1/4 to 1/2 pack)/day in last 30 days Tobacco Use:. Smokeless tobacco user within last 30 days Smokeless Tobacco Use:., 07/25/2023 Family History Heart disease: Father. [facility] Comment on above: Result Comment: Elec tronically Signed By: Antonia RUBIO, Tylor Potter\.br\Date and Time Signed: 07/25/23 11:40 EDT Formson 06-18-2023 Forms [id number]#1. 00TIFF [facility] Outside [facility] 06-17-2023 Outside Labs [id number]#1. 00TIFF [facility] Physician Orderon 06-13-2023 Physician Order Lab ordered for patient & he request to have it done @ [facility]. Lab orders faxed to [facility] ( ) & confirmation received. [id number]#1. 00TIFF Normal [facility] Physician Orderon 06-02-2023 Physician Order [id number]#1. 00TIFF Normal [facility] Stress EKG Tracingson 2023 Stress EKG Tracings [id number]#1.0 0TIFF Normal [facility] Operative Reporton Operative Report Indication for Surge [...] consent the patient was brought to the Staffing Administrator where sterile prep and drape were administered in usual fashion. Anesthesia was obtained in the right wrist with lidocaine after administration of conscious sedation. A 5/6 slender Terumo sheath was placed in the right radial artery without complication. Nitroglycerin and nicardipine were given via the sheath and heparin was given intravenously. A 5 Bengali JACKE catheter was advanced and selectively engaged [...] end of the procedure without complication. Normal [facility] Comment on above: Result Comment: Elec tronically Signed By: Isaura RUBIO, Zeb Reza\.br\Date and Time Signed: 05/13/23 13:46 EST Consent for Procedure/Surger yon 05-09-2023 Consent for Procedure/Surgery [id number]#1. 00TIFF [facility] Discharge Instructionson Discharge Instructions [id number]#1. 00TIFF [facility] Cardiovascular Reporton 04-24 Cardiovascular Report [id number]#1. 00TIFF [facility] Consent for Treatmenton 04-24 Consent for Treatment [id number]#1.0 0TIFF [facility] Inpatient Clinical Summaryon 05-08-2023 Inpatient Clinical Summary [place] [id number] Clinical Summary Person Information: Name: JUAN CARLOS NOGUERA Age: 52 Years : 1970 Sex: Male PCP: MORENO BARRERA MD Marital Status: Race: White Ethnicity: Non- or Language: Romansh Visit Id: Visit Reason: R94.39 R07.9 Speciality: Acuity: Enc Type: Ambulatory/Same Day Surgery Med Service: Cardiovascular Arrival: 05/08/2023 09:48:23 Discharge: Dispo Type: Address: [address] [place] [address] [id number] Provider Notes: Diagnosis: Problems Active Smoker Smoking [...] Follow up: With: Address: When: Zeb Delarosa [address] [place] [address] Business (1) 05/30/2023 3:15 PM Type Location Start [facility] Cardiology Follow Up (FT) [facility] [place] 05/30/2023 3:00 PM 05/30/2023 3:15 PM Confirmed Cardiology Follow Up (FT) [facility] [place] 10/31/2023 1:00 PM 10/31/2023 1:15 PM Confirmed Patient Education Information: CV - Cardiovascular Discharge Instructions (CUSTOM) [facility] Inpatient Patient Summaryon 05-08-2023 Inpatient Patient Summary [address] [address] Patient Discharge Instructions PERSON INFORMATION Name: JUAN CARLOS NOGUERA Date of : 1970 Current Date: 05/08/2023 14:40:32 PHYSICIANS Admitting Physician: Zeb Delarosa MD Primary Care Physician: MORENO BARRERA MD PCP Comment: Discharge Diagnosis: Condition at Discharge: Stable JUAN CARLOS NOGUERA has been given the following list [...] culture Follow up: With: Address: When: Zeb Delarosa [address] [place] [address] GAVINO Bhakta [address] Business (1) 05/30/2023 3:15 PM In the event that this physician does not participate in your insurance network, please consult with your insurance company to find a nearby participating provider. Type Location Start [facility] Cardiology Follow Up (FT) [facility] [place] 05/30/2023 3:00 PM 05/30/2023 3:15 PM Confirmed Cardiology Follow Up (FT) [facility] [place] 10/31/2023 1:00 PM 10/31/2023 1:15 PM Confirmed Comment: CHUCKIE Oliver LEWIS A, have received the attached patient education materials/instructions and have verbalized understanding: Patient Signature Date Clinican/Nurse Signature ___ Date HERE ARE THE MEDICATION CHANGES THAT OCCURRED DURING YOUR HOSPITAL STAY Medications to Continue with No Changes Other Medications acetaminophen (Tylenol) Last Dose: ___Next Dose: ___ albuterol Last Dose: ___Next Dose: ___ apixaban (Eliquis 5 mg oral tablet) 1 Tablets By Mouth 2 times a day. Refills: 3. Last Dose: ___Next Dose: ___ carvedilol (carvedilol 3.125 mg Tab) 1 Tablets By Mouth 2 times a day. Refills: 3. Last Dose: ___Next Dose: ___ losartan (losartan 25 mg Tab) 1 Tablets By Mouth every day. Refills: 3. Last Dose: ___Next Dose: ___ Comment: MEDICATION LIST PROVIDED FOR YOU IS [...] Pharmacy Information: Comment: PATIENT EDUCATION INFORMATION Instructions: [place], [place] CARDIOVASCULAR DISCHARGE INSTRUCTIONS Diet: ? Resume [...] Soreness an (more content not included)... Normal [facility] Patient Education - Texton 0 05-08-2023 Patient Education - Text [place], [place] CARDIOVASCULAR DISCHARGE INSTRUCTIONS Diet: ? Resume [...] you are interested in smoking cessation, contact [facility] at [phone], ext. [phone]. ? In the event you are unable to reach your physician, please call [facility] at [phone] and the diesel crane operator will assist you. Seek Immediate Medical Care for: ? Bleeding: Apply continuous pressure to the site and Call 911. ? Should the arm or leg become cold, numb, blue or white call your physician immediately. ? Signs of infection are redness, warmth, swelling, increased tenderness, colored drainage, fever or chills ? Chest pain ? Normal [facility] Outside [facility] 05-06-2023 Outside Labs [id number]#1. 00TIFF [facility] Physician Orderon 05-06-2023 Physician Order [id number]#1. 00TIFF [facility] Insurance Correspondenceon 0 05-05-2023 Insurance Correspondence [id number]#1. 00TIFF Normal [facility] Heart and Vascular Office/Cl inic Noteon 05-03-2023 Heart and Vascular Office/Clinic Note Chief Complaint here for test results History of Present Illness Juan Carlos Noguera is a 52-year-old male who presents today for a 6 week followup. His testing showed a mild enlargement and mild weakness of his heart. He has been experiencing increased fatigue recently. He has atrial fibrillation. He reports not having a healthy life. Dr. Jennifer Salazar is checking is oxygen levels. He [...] Assessment/Plan 1. New Finding of Cardiomyopathy, Unspecified Juan Carlos Noguera is a 52-year-old with an incidental finding of atrial fibrillation and also turns out to have cardiomyopathy and left ventricular systolic dysfunction. I recommend heart catheterization. I am going to start him on Eliquis as his [id number] score is higher. We will switch him [...] with voice recognition artificial intelligence software, specifically [employer], [employer] and or [employer]. Substitutions may have occurred due to the inherent limitations of voice recognition and artificial intelligence software. ATTESTATION: Documentation services were performed after patient or guardian consented to allow [employer] to record this visit. ESTEFANIA health communications specialist and provider reviewed before signing. ESTEFANIA: Aman Rdz Follow-up No qualifying data available Problem List/Past [...] 05/02/2023 Family History Heart disease: Father. [facility] Comment on above: Result Comment: Elec tronically Signed By: Isaura RUBIO, Zeb Reza\.br\Date and Time Signed: 05/03/23 13:01 EST\.br\Electronically Co-Signed [...] Stress Dose (mCi Tc99M Cardiolite): 30.1 Normal [facility] MR cervical spine wo conon 0 04-17-2023 MR cervical spine wo con [facility] [place] [address] MRI Report Signed Patient: Juan Carlos Noguera MR#: [id number] : 1970 Acct:[id number] Age/Sex: 52 / M ADM Date: 04/17/23 Loc: Room: Type: [facility] Attending Dr: Jennifer Avery RN Copies to: Jennifer Avery RN Ordering Provider: Jennifer Avery RN Date of Service: 04/17/23 MR/MR [...] Robe Fox M.D.04/17/2023 2:28 PM Dictation Location: [place] [address] Transcribed By: [facility] 04/17/23 1428 Dictated By: Robe Fox II, MD 04/17/23 142 Signed By: 04/17/23 1428 Normal [facility] MR head/brain wo/w joshua MR head/brain wo/w con [facility] [address] MRI Report Signed Patient: Juan Carlos Noguera MR#: [id number] : 1970 Acct:[id number] Age/Sex: 52 / M ADM Date: 04/17/23 Loc: MR Room: Type: [facility] Attending Dr: Jennifer Avery RN Copies to: Jennifer Avery RN Ordering Provider: Jennifer Avery RN Date of Service: 04/17/23 MR/MR [...] Robe Fox M.D.04/17/2023 2:35 PM Dictation Location: [place] [address] Transcribed By: [facility] 04/17/23 1435 Dictated By: Robe Fox II, MD 04/17/23 1429 Signed By: 04/17/23 1435 Normal [facility] Consent for Treatmenton 03-25 Consent for Treatment [id number]#1.0 0TIFF Normal [facility] Heart and Vascular Office/Cl inic Noteon 03-30-2023 [...] occurred during strenuous work at [employer], involving fast-paced tasks and a sudden physical exertion by a colleague. Despite a brief improvement in a different role, his symptoms worsened when the workload intensified. He sought medical attention after persistent left arm numbness and tingling, with a dismissive response that he did not have a heart attack or excessive perspiration. He experienced a workplace fall at the parking lot in [place], resulting in a ruptured spleen and a [...] 911, and they sent him straight to [facility], where they found a ruptured spleen. He [...] day. Follow up in 6 weeks in [place]. ATTESTATION: Portions of this record may have been created with voice recognition artificial intelligence software, specifically [employer], [employer] and or [employer]. Substitutions may have occurred with voice recognition and artificial intelligence software. Documentation services were performed after patient or guardian consented to allow [employer] to record this visit. ESTEFANIA health communications specialist and provider reviewed before signing. ESTEFANIA: Laurie Kaur Follow-up No qualifying data available Problem List/Past Medical History Ongoing No qualifying data Historical Anxiety Asthma Autoimmune disorder Hypertension Memory Issu (more content not included)... Normal [facility] Comment on above: Result Comment: Elec tronically Signed By: Isaura RUBIO, Zeb Reza\.br\Date and Time Signed: 03/30/23 21:01 EST\.br\Electronically Co-Signed By: Vincent, Edralane B\.br\Date and Time Co-Signed: 03/20/23 17:31 EST Insurance Correspondenceon 0 03-28-2023 Insurance Correspondence [id number]#1.0 0TIFF Normal [facility] Insurance Correspondence [id number]#1.0 0TIFF Normal [facility] Electrocardiogram - 12 leado n 03-21-2023 Electrocardiogram - 12 lead [id number]#1. 00TIFF Normal [facility] Physician Orderon 03-21-2023 Physician Order [id number]#1. 00TIFF Normal [facility] Referrals Officeon Referrals Office [id number]#1. 00TIFF Normal [facility] MRI TIB/FIB Right w/wo Conto n 12-21-2021 MRI TIB/FIB Right w/wo Cont [place] [address] Diagnostic Imaging MRI Report Name: JUAN CARLOS NOGUERA Sr. Pt Type: DEP OUT MR #: [id number] Room & Bed: Date of : 1970 Date of Service: 12/20/21 Age: 51 Ordering Doctor: Marie Mckenzie CNP Sex: Male Family Doctor: Marie Mckenzie [employer]TER Order #: [id number] Dictating Doctor: Juan Carlos Ozuna Admit Date: Referring Doctor: Other Doctor: [...] HAS BEEN ELECTRONICALLY SIGNED BY: 12/21/2021 10:51: Juan Carlos Ozuna MD 12/21/21 1053 -------- DICTATED BY: Juan Carlos Ozuna CC: CONFIDENTIALITY NOTICE: This report is for the sole use of the intended recipient and may contain confidential and privileged information. Any unauthorized review, use, disclosure or distribution is prohibited. If you are not the intended recipient, please contact [facility] at [phone] and destroy all copies of the original. Normal [facility] CBC W Auto Differential pane l (Bld)on 12-18-2021 BASOPHIL ABSOLUTE COUNT 0.07 x10*3/uL Normal 0.0-0.1 [facility] Comment on above: Performed By: #### 5 7021-8, 75114-3, 08350-8 #### [facility] [address] Basophils/100 WBC (Bld) 0.3 % Normal 0.0-1.1 [facility] Comment on above: Performed By: #### 5 7021-8, 78277-7, 33678-7 #### [facility] [address] EOS ABSOLUTE COUNT 0.18 x10*3/uL Normal 0.0-0.5 [facility] Comment on above: Performed By: #### 5 7021-8, 79013-8, 74551-8 #### [facility] [address] Eosinophils/100 WBC (Bld) 0.8 % Normal 0.0-6.0 [facility] Comment on above: Performed By: #### 5 7021-8, 13162-5, 67015-9 #### [facility] [address] Hematocrit (Bld) [Volume fraction] 44.3 % Normal 35.0-49.0 [facility] Comment on above: Performed By: #### 5 7021-8, 90159-4, 23209-6 #### [facility] [address] Hemoglobin (Bld) [Mass/Vol] 14.6 g/dL Normal 11.5-17.0 [facility] Comment on above: Performed By: #### 5 7021-8, 52033-0, 85495-8 #### [facility] [address] IMMATURE GRAN ABSOLUTE COUNT 0.12 x10*3/uL Normal 0.0-0.5 [facility] Comment on above: Performed By: #### 5 7021-8, 84009-9, 28927-7 #### [facility] [address] Immature granulocytes/100 WBC (Bld) 0.5 % Normal 0.0-2.99 [facility] Comment on above: Performed By: #### 5 7021-8, 02849-2, 81281-1 #### [facility] [address] LYMPHOCYTE ABSOLUTE COUNT 5.98 x10*3/uL High 0.5-3.2 [facility] Comment on above: Performed By: #### 5 7021-8, 74269-8, 48941-7 #### [place] [address] [place] Lymphocytes/100 WBC (Bld) 26.1 % Normal 13.0-39.0 [facility] Comment on above: Performed By: #### 5 7021-8, 29906-2, 96443-3 #### [facility] [address] MCH (RBC) [Entitic mass] 30.8 pg Normal 26.0-33.0 [facility] Comment on above: Performed By: #### 5 7021-8, 24701-0, 69505-7 #### [facility] [address] MCV (RBC) [Entitic vol] 93.5 fL Normal 81.0-98.0 [facility] Comment on above: Performed By: #### 5 7021-8, 02975-6, 71889-1 #### [facility] [address] MEAN CORPUSCULAR HGB CONC 33.0 g/dl Normal 31.0-35.0 [facility] Comment on above: Performed By: #### 5 7021-8, 53107-1, 69945-1 #### [facility] [address] MONOCYTE ABSOLUTE COUNT 2.31 x10*3/uL High 0.0-1.0 [facility] Comment on above: Performed By: #### 5 7021-8, 59551-4, 81909-9 #### [facility] [address] Monocytes/100 WBC (Bld) 10.1 % Normal 4.0-13.0 [facility] Comment on above: Performed By: #### 5 7021-8, 40136-1, 08297-4 #### [facility] [address] NEUTROPHIL COUNT ABSOLUTE 14.27 x10*3/uL High 1.5-6.2 [facility] Comment on above: Performed By: #### 5 7021-8, 26413-8, 36451-5 #### [place] [address] [place] Neutrophils/100 WBC (Bld) 62.2 % Normal 47.0-76.0 [facility] Comment on above: Performed By: #### 5 7021-8, 70708-4, 44373-7 #### [facility] [address] NUCLEATED RBC ABSOLUTE COUNT 0.00 x10*3/uL Normal [facility] Comment on above: Performed By: #### 5 70-8, 10899-5, 45576-2 #### [facility] [address] Nucleated RBC/100 WBC (Bld) [Ratio] 0.0 % Normal [facility] Comment on above: Performed By: #### 5 70-8, 88578-1, 91035-5 #### [facility] [address] PLATELET COUNT 430 x10*3/uL High 150-400 [facility] Comment on above: Performed By: #### 5 70-8, 05866-4, 19026-3 #### [facility] [address] Platelet mean volume (Bld) [Entitic vol] 10.6 fL Normal 9.0-12.1 [facility] Comment on above: Performed By: #### 5 7021-8, 84534-5, 62145-8 #### [facility] [address] RED BLOOD COUNT 4.74 x10*6/uL Normal 3.8-6.0 [facility] Comment on above: Performed By: #### 5 7021-8, 44168-4, 15165-8 #### [facility] [address] RED CELL DISTRIBUTION WIDTH 46.0 fL Normal 36.7-49.4 [facility] Comment on above: Performed By: #### 5 7021-8, 87479-4, 42366-2 #### [facility] [address] WHITE BLOOD COUNT 22.93 X10*3/uL High 3.8-11.0 [facility] Comment on above: Performed By: #### 5 7021-8, 26740-3, 29776-1 #### [facility] [address] [address] [place] Differential panel (Body fld )on 12-18-2021 BANDS 2 % High 0-1 [facility] Comment on above: Performed By: #### 5 7021-8, 68577-1, 51379-5 #### [facility] [address] [address] [place] Basophils/100 WBC (Bld) 0 % Normal 0-1 [facility] Comment on above: Performed By: #### 5 7021-8, 13624-7, 48373-5 #### [facility] [address] [address] [place] Eosinophils/100 WBC (Bld) 1 % Normal 0-6 [facility] Comment on above: Performed By: #### 5 7021-8, 53935-6, 40755-9 #### [facility] [address] [address] [place] Lymphocytes/100 WBC (Bld) 25 % Low 38-46 [facility] Comment on above: Performed By: #### 5 7021-8, 46873-6, 32496-9 #### [facility] [address] [address] [place] Monocytes/100 WBC (Bld) 4 % Normal 2-10 [facility] Comment on above: Performed By: #### 5 7021-8, 89806-9, 62130-4 #### [facility] [address] [address] [place] Neutrophils/100 WBC (Bld) 62 % Normal 47-76 [facility] Comment on above: Performed By: #### 5 7021-8, 08789-7, 95458-6 #### [facility] [address] [address] [place] Variant lymphocytes/100 WBC (Bld) 6 % Normal [facility] Comment on above: Performed By: #### 5 7021-8, 02128-4, 63968-1 #### [facility] [place] [id number] [facility] Pathologist review of result son 12-18-2021 Pathologist review Armando (Unsp spec) [Interp] SEE COMMENT Normal [facility] Comment on above: Result Comment: Lymp hocytosis noted, favor reactive. If persistent, further investigation with flow cytometric analysis of peripheral blood is suggested for lymphocyte phenotyping in order to exclude a lymphoproliferative neoplasm. Reviewed by Dr. Kumar Performed By: #### 5 7021-8, 46723-7, 23322-2 #### [facility] [address] Urate [Mass/Vol]on 2 CNET-Uric Acid #URIC 6.7 MG/DL Normal 4.0-8.0 [facility] Comment on above: Result Comment: (NOT E) THERAPEUTIC TARGET FOR PATIENTS WITH GOUT: <6.0 TESTING PERFORMED BY: [facility] [address] [place] [address], CLIA [id number] Shelley SALGADO Performed By: #### 3 084-1 #### [facility] , Urate [Mass/volume] in Serum or Plasmaon 12-18-2021 Urate [Mass/Vol] Normal 3.8-7.1 [facility] Comment on above: Result Comment: SENT TO REFERENCE LAB DUE TO SUPPLY CHAIN ISSUES. ANOTHER TEST FOR SAME ANAYLTE WILL BE ORDERED AND RESULTED IN [facility]. Performed By: #### 5 7021-8, 69951-8, 56964-7 #### [facility] [place] [id number] [facility] AMB Office Visit Internal Me don 12-12-2021 AMB Office Visit Internal Med [place] [address] Medical Records Department AMB Office Visit Internal Med Name: JUAN CARLOS NOGUERA Sr. Pt Type: DEP AMB MR #: [id number] Room AND Bed: Date of : 1970 Date of Service: 12/12/21 Age: 51 Ordering Doctor: Sex: Male Family Doctor: Marie Mckenzie CNP Order #: Dictating Doctor: Marie Mckenzie [employer]TER Admit Date: Referring Doctor: Other Doctor: Additional Copies: Marie Mckenzie [employer] SETTER === Chief Complaint Chief Complaint: * Patient [...] Physician History Physician Specialist Physician: Oswaldo Bonilla [facility] Medical History Anxiety disorder History of [...] 101 H (more content not included)... Normal [facility] Ambulatory Ankle Righton 09-13-2022 Ankle Right [address] [place], [place] [address] Diagnostic Imaging Radiology Report Name: JUAN CARLOS NOGUERA Sr. Pt Type: DEP OUT MR #: [id number] Room & Bed: Date of : 1970 Date of Service: 12/03/21 Age: 51 Ordering Doctor: Marie Mckenzie CNP Sex: Male Family Doctor: Marie Mckenzie CNP Order #: [id number] Dictating Doctor: Anthony Rangel MD Admit Date: [...] 12/04/2021 07:47: Anthony Rangel MD 12/04/21 0749 -------- DICTATED BY: Anthony Rangel MD CC: CONFIDENTIALITY NOTICE: This report is for the sole use of the intended recipient and may contain confidential and privileged information. Any unauthorized review, use, disclosure or distribution is prohibited. If you are not the intended recipient, please contact [facility] at [phone] and destroy all copies of the original. Normal [facility] Leg Lower Right 2 vwson 11-22 Leg Lower Right [address] [address] Diagnostic Imaging Radiology Report Name: JUAN CARLOS NOGUERA Sr. Pt Type: DEP OUT MR #: [id number] Room & Bed: Date of : 1970 Date of Service: 12/03/21 Age: 51 Ordering Doctor: Marie Mckenzie CNP Sex: Male Family Doctor: Marie Mckenzie CNP Order #: [id number] Dictating Doctor: Anthony Rangel MD Admit Date: [...] 12/04/2021 07:48: Anthony Rangel MD 12/04/21 0750 -------- DICTATED BY: Anthony Rangel MD CC: CONFIDENTIALITY NOTICE: This report is for the sole use of the intended recipient and may contain confidential and privileged information. Any unauthorized review, use, disclosure or distribution is prohibited. If you are not the intended recipient, please contact [facility] at [phone] and destroy all copies of the original. Normal [facility] AMB Office Visit Internal Me don 12-03-2021 AMB Office Visit Internal Med [place] [address] Medical Records Department AMB Office Visit Internal Med Name: JUAN CARLOS NOGUERA Sr. Pt Type: [facility] MR #: [id number] Room AND Bed: Date of : 1970 Date of Service: 12/03/21 Age: 51 Ordering Doctor: Sex: Male Family Doctor: Marie Mckenzie CNP Order #: Dictating Doctor: Marie Mckenzie CNP Admit Date: Referring Doctor: Other Doctor: Additional Copies: Marie Mckenzie [employer]TER === Chief Complaint Chief Complaint: Patient here [...] Physician History Physician Specialist Physician: Oswaldo Bonilla [facility] Medical History Anxiety disorder History of [...] (2) P (more content not included)... Normal [facility] Ambulatory AMB Office Visit Internal Me don 11-28-2021 AMB Office Visit Internal Med [place] [id number] Medical Records Department AMB Office Visit Internal Med Name: JUAN CARLOS NOGUERA Pt Type: DEP AMB MR #: [id number] Room AND Bed: Date of : 1970 Date of Service: 11/28/21 Age: 51 Ordering Doctor: Sex: Male Family Doctor: Marie Mckenzie CNP Order #: Dictating Doctor: Marie Mckenzie CNP Admit Date: Referring Doctor: Other Doctor: Additional Copies: Marie Mckenzie [employer] W[employer] SETTER === Chief Complaint Chief Complaint: Patient is [...] Transition of care Accompanied by: Self Feel stressed/tense/nervous /anxious/difficulty sleeping: not at all COVID-19 Patient Screening COVID-19 Screening Contact with COVID positive or high risk person(s): No COVID-19 Symptoms: No Physician History Physician Specialist Physician: Oswaldo Bonilla [facility] Medical History Anxiety disorder History of [...] BP 118/80 (more content not included)... Normal [facility] Ambulatory BASIC METABOLIC PANELon Anion gap [Moles/Vol] 11 mmol/L Normal 10-20 [facility] Comment on above: Performed By: #### M PB #### [facility] [address] Calcium [Mass/Vol] 8.8 mg/dL Normal 8.7-10.5 [facility] Comment on above: Performed By: #### M PB #### [facility] [place] [id number] [facility] Chloride [Moles/Vol] 105 mmol/L Normal 99-111 [facility] Comment on above: Performed By: #### M PB #### [facility] [place] [address] [facility] CO2 [Moles/Vol] 29 mmol/L Normal 21.0-32.0 [facility] Comment on above: Performed By: #### M PB #### [facility] [address] [address] [place] Creatinine [Mass/Vol] 0.8 mg/dL Normal 0.6-1.3 [facility] Comment on above: Performed By: #### M PB #### [facility] [address] [address] [place] GFR/1.73 sq M.predicted among non-blacks MDRD (S/P/Bld) [Vol rate/Area] 107 mL/min/{1.73_m2} Normal >59 [facility] Comment on above: Performed By: #### M PB #### [facility] [place] [address] [place] Glucose [Mass/Vol] 92 mg/dL Normal 70-100 [facility] Comment on above: Performed By: #### M PB #### [facility] [address] [address] [facility] Potassium [Moles/Vol] 3.9 mmol/L Normal 3.5-5.0 [facility] Comment on above: Performed By: #### M PB #### [facility] [address] [address] [facility] Sodium [Moles/Vol] 141 mmol/L Normal 137-147 [facility] Comment on above: Performed By: #### M PB #### [facility] [address] [address] [facility] Urea nitrogen [Mass/Vol] 9 mg/dL Normal 7-22 [facility] Comment on above: Performed By: #### M PB #### [facility] [place] [address] [facility] Urea nitrogen/Creatinine [Mass ratio] 11.3 mg/mg Normal 6-25 [facility] Comment on above: Performed By: #### M PB #### [facility] [address] [address] [facility] CBC W Auto Differential pane l (Bld)on 11-23-2021 BASOPHIL ABSOLUTE COUNT 0.12 x10*3/uL High 0.0-0.1 [facility] Comment on above: Performed By: #### 5 7021-8, 77563-0, 26690-9 #### [facility] [address] [address] [place] Basophils/100 WBC (Bld) 0.8 % Normal 0.0-1.1 [facility] Comment on above: Performed By: #### 5 7021-8, 25486-2, 23035-4 #### [facility] [address] [address] [place] EOS ABSOLUTE COUNT 0.50 x10*3/uL Normal 0.0-0.5 [facility] Comment on above: Performed By: #### 5 7021-8, 04157-1, 61986-4 #### [facility] [address] [address] [place] Eosinophils/100 WBC (Bld) 3.2 % Normal 0.0-6.0 [facility] Comment on above: Performed By: #### 5 7021-8, 24647-0, 02827-9 #### [facility] [address] Hematocrit (Bld) [Volume fraction] 37.8 % Normal 35.0-49.0 [facility] Comment on above: Performed By: #### 5 7021-8, 21618-5, 57059-8 #### [facility] [address] Hemoglobin (Bld) [Mass/Vol] 12.9 g/dL Normal 11.5-17.0 [facility] Comment on above: Performed By: #### 5 7021-8, 05349-1, 90871-8 #### [facility] [address] IMMATURE GRAN ABSOLUTE COUNT 0.04 x10*3/uL Normal 0.0-0.5 [facility] Comment on above: Performed By: #### 5 7021-8, 08209-4, 49145-9 #### [facility] [address] Immature granulocytes/100 WBC (Bld) 0.3 % Normal 0.0-2.99 [facility] Comment on above: Performed By: #### 5 7021-8, 59456-9, 82443-9 #### [facility] [address] LYMPHOCYTE ABSOLUTE COUNT 3.69 x10*3/uL High 0.5-3.2 [facility] Comment on above: Performed By: #### 5 7021-8, 39567-9, 37247-9 #### [facility] [address] Lymphocytes/100 WBC (Bld) 23.9 % Normal 13.0-39.0 [facility] Comment on above: Performed By: #### 5 7021-8, 74713-0, 92138-4 #### [facility] [address] MCH (RBC) [Entitic mass] 31.6 pg Normal 26.0-33.0 [facility] Comment on above: Performed By: #### 5 7021-8, 77270-4, 46785-1 #### [facility] [address] MCV (RBC) [Entitic vol] 92.6 fL Normal 81.0-98.0 [facility] Comment on above: Performed By: #### 5 7021-8, 67025-4, 50494-0 #### [facility] [address] MEAN CORPUSCULAR HGB CONC 34.1 g/dl Normal 31.0-35.0 [facility] Comment on above: Performed By: #### 5 7021-8, 02359-5, 60558-3 #### [facility] [address] MONOCYTE ABSOLUTE COUNT 2.05 x10*3/uL High 0.0-1.0 [facility] Comment on above: Performed By: #### 5 7021-8, 65393-6, 75141-7 #### [facility] [address] Monocytes/100 WBC (Bld) 13.3 % High 4.0-13.0 [facility] Comment on above: Performed By: #### 5 7021-8, 00910-7, 00936-5 #### [facility] [address] NEUTROPHIL COUNT ABSOLUTE 9.01 x10*3/uL High 1.5-6.2 [facility] Comment on above: Performed By: #### 5 7021-8, 71786-5, 65351-8 #### [facility] [address] Neutrophils/100 WBC (Bld) 58.5 % Normal 47.0-76.0 [facility] Comment on above: Performed By: #### 5 7021-8, 24961-1, 68197-0 #### [place] [address] [place] NUCLEATED RBC ABSOLUTE COUNT 0.00 x10*3/uL Normal [facility] Comment on above: Performed By: #### 5 7021-8, 54135-0, 26059-8 #### [facility] [address] Nucleated RBC/100 WBC (Bld) [Ratio] 0.0 % Normal [facility] Comment on above: Performed By: #### 5 7021-8, 00571-8, 48786-8 #### [facility] [address] PLATELET COUNT 427 x10*3/uL High 150-400 [facility] Comment on above: Performed By: #### 5 7021-8, 85467-7, 59991-6 #### [facility] [address] Platelet mean volume (Bld) [Entitic vol] 9.0 fL Normal 9.0-12.1 [facility] Comment on above: Performed By: #### 5 70-8, 01904-7, 62557-3 #### [facility] [address] RED BLOOD COUNT 4.08 x10*6/uL Normal 3.8-6.0 [facility] Comment on above: Performed By: #### 5 7021-8, 65840-5, 29734-7 #### [facility] [address] RED CELL DISTRIBUTION WIDTH 46.7 fL Normal 36.7-49.4 [facility] Comment on above: Performed By: #### 5 7021-8, 57973-0, 98048-4 #### [facility] [address] WHITE BLOOD COUNT 15.41 X10*3/uL High 3.8-11.0 [facility] Comment on above: Performed By: #### 5 7021-8, 07921-4, 02983-9 #### [facility] [address] Differential panel (Body fld )on 11-23-2021 BANDS 0 % Normal 0-1 [facility] Comment on above: Performed By: #### 5 7021-8, 79595-0, 26157-8 #### [facility] [address] [address] [place] Basophils/100 WBC (Bld) 0 % Normal 0-1 [facility] Comment on above: Performed By: #### 5 7021-8, 00600-1, 34084-8 #### [facility] [address] [address] [place] Eosinophils/100 WBC (Bld) 3 % Normal 0-6 [facility] Comment on above: Performed By: #### 5 7021-8, 32576-8, 95545-0 #### [facility] [address] [address] [place] Lymphocytes/100 WBC (Bld) 24 % Low 38-46 [facility] Comment on above: Performed By: #### 5 7021-8, 90227-7, 13359-4 #### [facility] [address] [address] [place] Monocytes/100 WBC (Bld) 7 % Normal 2-10 [facility] Comment on above: Performed By: #### 5 7021-8, 46999-6, 30608-6 #### [facility] [address] [address] [place] MYELOCYTE 1 % Normal [facility] Comment on above: Performed By: #### 5 7021-8, 89489-1, 57368-2 #### [facility] [address] [address] [place] Neutrophils/100 WBC (Bld) 62 % Normal 47-76 [facility] Comment on above: Performed By: #### 5 7021-8, 84202-0, 20840-6 #### [facility] [address] [address] [place] Variant lymphocytes/100 WBC (Bld) 3 % Normal [facility] Comment on above: Performed By: #### 5 7021-8, 38908-5, 62613-6 #### [facility] [address] [address] [place] Pathologist review of result son 11-23-2021 Pathologist review Armando (Unsp spec) [Interp] * Normal [facility] Comment on above: Result Comment: Niurka campbell with reported results. Reviewed by [facility] Performed By: #### 5 7021-8, 54745-3, 09329-3 #### [facility] [address] Physician Documentationon Physician Documentation [place] [address] Medical Records Department ED Physician Documentation Name: JUAN CARLOS NOGUERA Sr. Pt Type: DEP ER MR #: [id number] Room AND Bed: Date of : 1970 [...] Blood Pres (more content not included)... Normal [facility] US Venous Duplex Uni Leg RTo n 11-23-2021 US Venous Duplex Uni Leg RT [place] [address] Diagnostic Imaging Ultrasound Report Name: JUAN CARLOS NOGUERA Sr. Pt Type: REG ER MR #: [id number] Room & Bed: Date of : 1970 Date of Service: 11/23/21 Age: 51 Ordering Doctor: Florinda Guillory CNP Sex: Male Family Doctor: Marie Mckenzie CNP Order #: [id number] Dictating Doctor: Abisai Mchugh MD Admit Date: [...] 11/23/2021 13:58: Abisai Mchugh MD 11/23/21 1400 -------- DICTATED BY: Abisai Mchugh MD CC: CONFIDENTIALITY NOTICE: This report is for the sole use of the intended recipient and may contain confidential and privileged information. Any unauthorized review, use, disclosure or distribution is prohibited. If you are not the intended recipient, please contact [facility] at [phone] and destroy all copies of the original. Normal [facility] AMB Office Visit Internal Me don 10-08-2021 AMB Office Visit Internal Med [place] [address] Medical Records Department AMB Office Visit Internal Med Name: JUAN CARLOS NOGUERA Pt Type: DEP AMB MR #: [id number] Room AND Bed: Date of : 1970 [...] Disorder (ADD), Anxiety Accompanied by: Self Feel stressed/tense/nervous /anxious/difficulty sleeping: only a little PHQ-2/PHQ-9 PHQ-2 Over [...] and colleagues, with an educational damian from [employer]. COVID-19 Patient Screening COVID-19 Screening Contact with COVID positive or high risk person(s): No COVID-19 Symptoms: No Physician History Physician Specialist Physician: Oswaldo Bonilla [facility] Medical History Anxiety disorder History of [...] concentrating, Denie (more content not included)... Normal [facility] Ambulatory AMB Office Visit Internal Me don 09-10-2021 AMB Office Visit Internal Med [place] [address] Medical Records Department AMB Office Visit Internal Med Name: JUAN CARLOS NOGUERA Pt Type: DEP AMB MR #: [id number] Room AND Bed: Date of : 1970 Date of Service: 09/10/21 Age: 50 Ordering Doctor: Sex: Male Family Doctor: Diana Peoples MD Order #: Dictating Doctor: Mraie Mckenzie CNP Admit Date: Referring Doctor: Other [...] associated with ADD. He also wonders about [place] [employer] Marijuana program. Intake Intake Intake Have you had any falls?: No Health Information: Yes Is patient in pain?: 0 Reason for visit: Anxiety, Depression Accompanied by: Self Feel stressed/tense/nervous /anxious/difficulty sleeping: to some extent PHQ-2/PHQ-9 PHQ-2 Over [...] and colleagues, with an educational damian from [employer] COVID-19 Patient Screening COVID-19 Screening Contact [...] Denies headache(s) (more content not included)... Normal [facility] Ambulatory AMB Office Visit Internal Me don 06-11-2021 AMB Office Visit Internal Med [place] [id number] Medical Records Department AMB Office Visit Internal Med Name: JUAN CARLOS NOGUERA Pt Type: DEP AMB MR #: [id number] Room AND Bed: Date of : 1970 [...] finger, Anxiety, Depression Accompanied by: Self Feel stressed/tense/nervous /anxious/difficulty sleeping: only a little PHQ-2/PHQ-9 PHQ-2 Over [...] and colleagues, with an educational damian from [employer]. COVID-19 Patient Screening COVID-19 Screening Contact with COVID positive or high risk person(s): No COVID-19 Symptoms: No Physician History Physician Specialist Physician: Oswaldo Bonilla [facility] Medical History Anxiety disorder History of [...] carbonated be (more content not included)... Normal [facility] Ambulatory AMB Office Visit Internal Me don 03-12-2021 AMB Office Visit Internal Med [place] [address] Medical Records Department AMB Office Visit Internal Med Name: JUAN CARLOS NOGUERA Pt Type: DEP AMB MR #: [id number] Room AND Bed: Date of : 1970 Date of Service: 03/12/21 Age: 50 Ordering Doctor: Sex: Male Family Doctor: Diana Peoples MD Order #: Dictating Doctor: Marie Mckenzie [employer] Admit Date: Referring Doctor: Other Doctor: Additional [...] Anxiety, Depression, Insomnia Accompanied by: Self Feel stressed/tense/nervous /anxious/difficulty sleeping: only a little PHQ-2/PHQ-9 PHQ-2 Over [...] Denies eas (more content not included)... Normal [facility] Ambulatory AMB Office Visit Internal [place] 02-12-2021 AMB Office Visit Internal Med [place] [address] Medical Records Department AMB Office Visit Internal Med Name: JUAN CARLOS NOGUERA Pt Type: DEP AMB MR #: [id number] Room AND Bed: Date of : 1970 [...] Establishment, Anxiety, Depression Accompanied by: Self Feel stressed/tense/nervous /anxious/difficulty sleeping: not at all COVID-19 Patient Screening [...] TM's normal (more content not included)... Normal [facility] Ambulatory BASIC METABOLIC PANELon 04-24 Anion gap [Moles/Vol] 10 mmol/L Normal 5-15 [facility] Comment on above: Performed By: #### L [id number] #### [place] [address] BUN/CREAT RATIO 12 (CALC) Normal 7.0-25.0 [facility] Comment on above: Performed By: #### L [id number] #### [place] [address] Calcium [Mass/Vol] 8.0 mg/dL Low 8.5-10.5 [facility] Comment on above: Performed By: #### L [id number] #### [place] [address] Chloride [Moles/Vol] 105 mmol/L Normal 96-110 [facility] Comment on above: Performed By: #### L [id number] #### [place] [address] CO2 [Moles/Vol] 21 mmol/L Normal 19-32 [facility] Comment on above: Performed By: #### L [id number] #### [place] [id number] Creatinine [Mass/Vol] 0.9 mg/dL Normal 0.5-1.4 [facility] Comment on above: Performed By: #### L [id number] #### [place] [address] ESTIMATED GFR 99 ML/MIN/1.73M2 Normal [facility] Comment on above: Result Comment: IF THE PATIENT IS , PLEASE MULTIPLY THIS BY 1.159. THIS RESULT HAS BEEN CALCULATED ASSUMING THE PATIENT IS NON- Performed By: #### L [id number] #### [place] [address] Glucose [Mass/Vol] 126 mg/dL High 70-99 [facility] Comment on above: Performed By: #### L [id number] #### [place] [address] Potassium [Moles/Vol] 4.5 mmol/L Normal 3.4-5.3 [facility] Comment on above: Performed By: #### L [id number] #### [place] [address] Sodium [Moles/Vol] 136 mmol/L Normal 135-148 [facility] Comment on above: Performed By: #### L [id number] #### [place] [address] Urea nitrogen [Mass/Vol] 11 mg/dL Normal 3-29 [facility] Comment on above: Performed By: #### L [id number] #### [place] [address] COMPLETE BLOOD COUNTon 05-09 Erythrocyte distribution width (RBC) [Ratio] 14.3 % Normal 9.0-15.0 [facility] Comment on above: Performed By: #### L [id number] #### [place] [address] Hematocrit (Bld) [Volume fraction] 34.8 % Low 41.0-50.0 [facility] Comment on above: Performed By: #### L [id number] #### [place] [address] Hemoglobin (Bld) [Mass/Vol] 11.9 g/dL Low 13.8-17.2 [facility] Comment on above: Performed By: #### L [id number] #### [place] [address] MCH (RBC) [Entitic mass] 30.4 pg Normal 27.0-33.0 [facility] Comment on above: Performed By: #### L [id number] #### [place] [address] MCHC (RBC) [Mass/Vol] 34.0 g/dL Normal 32.0-36.0 [facility] Comment on above: Performed By: #### L [id number] #### [place] [address] MCV (RBC) [Entitic vol] 89.4 fL Normal 80.0-100.0 M [facility] Comment on above: Performed By: #### L [id number] #### [place] [address] Platelets (Bld) [#/Vol] 168 10*3/uL Normal 130-400 [facility] Comment on above: Performed By: #### L [id number] #### [place] [address] RBC COUNT 3.90 M/MM3 Low 4.40-5.80 [facility] Comment on above: Performed By: #### L [id number] #### [place] [address] WBC (Bld) [#/Vol] 19.5 10*3/uL High 3.8-10.8 [facility] Comment on above: Performed By: #### L [id number] #### [place] [address] DRUG SCREEN, URINEon 021 AMPHETAMINE, URINE Not detected Normal [facility] Comment on above: Performed By: #### L [id number] #### [place] [address] BARBITURATES, URINE Not detected Normal [facility] Comment on above: Performed By: #### L AB119 #### [place] [address] BENZODIAZEPINE, URINE Positive Abnormal [facility] Comment on above: Performed By: #### L [id number] #### [place] [address] COCAINE, URINE Not detected Normal [facility] Comment on above: Performed By: #### L [id number] #### [place] [address] COMMENT, URINE DRUG SCREEN Normal [facility] Comment on above: Result Comment: The submitted [...] and/or metabolites are present. Test performed at [facility] [place], [place] Performed By: #### L [id number] #### [place] [address] OPIATES, URINE Not detected Normal NONDT [facility] Comment on above: Performed By: #### L [id number] #### [place] [address] THC Not detected Normal [facility] Comment on above: Performed By: #### L [id number] #### [place] [address] SARS COV 2 RNA, QL REAL TIME RT PCRon 05-09-2020 SARS-CoV-2 (COVID-19) RNA ARAVIND+probe Ql (Unsp spec) Not detected Normal NDET [facility] Comment on above: Result Comment: Refe rence Range = NOT DETECTED Performed By: #### L [id number] #### [place] [address] SARS-CoV-2 (COVID-19) RNA ARAVIND+probe Ql (Unsp spec) (NOTE) Normal [facility] Comment on above: Result Comment: The SARS CoV-2 RNA, Qualitative Real-Time RT-PCR test is a qualitative multi-target molecular diagnostic test that aids in the detection of COVID-19. This test has been authorized by the FDA under an Emergency Use Authorization (EUA) for use by authourized laboratories. Refer to www.cdc.gov for additional information about Coronavirus disease 2019. Performed By: #### L [id number] #### [place] [address] URINALYSISon 05-09-2020 Appearance (U) CLEAR Normal [facility] Comment on above: Performed By: #### L [id number] #### [place] [address] BACTERIA, URINE NONE SEEN Normal NS [facility] Comment on above: Performed By: #### L [id number] #### [place] [address] BILIRUBIN, URINE Negative Normal NEG [facility] Comment on above: Performed By: #### L [id number] #### [place] [address] BLOOD, URINE Negative Normal NEG [facility] Comment on above: Performed By: #### L [id number] #### [place] [address] Color (U) Normal [facility] Comment on above: Result Comment: SIENNA SKY Reference Range: Yellow and Colorless Performed By: #### L [id number] #### [place] [address] Glucose Ql (U) Negative Normal NEG [facility] Comment on above: Performed By: #### L [id number] #### [place] [address] HYALINE CAST Normal U05 [facility] Comment on above: Result Comment: 0-5 REFERENCE RANGE: 0-5 HYALINE CASTS NONE SEEN FOR NON HYALINE CASTS Performed By: #### L [id number] #### [place] [address] KETONE, URINE Negative Normal NEG [facility] Comment on above: Performed By: #### L [id number] #### [place] [address] LEUKOCYTES, URINE Negative Normal NEG [facility] Comment on above: Performed By: #### L AB119 #### [place] [address] MUCUS, URINE PRESENT Normal [facility] Comment on above: Performed By: #### L AB119 #### [place] [address] NITRITES, URINE Negative Normal NEG [facility] Comment on above: Performed By: #### L [id number] #### [place] [address] pH (U) 6.0 [pH] Normal 4.5-8.0 [facility] Comment on above: Performed By: #### L AB119 #### [place] [phone] Protein (U) [Mass/Vol] 10 mg/dL Abnormal NEG [facility] Comment on above: Performed By: #### L AB119 #### [place] [phone] RBC, URINE 6-10 Abnormal U02 [facility] Comment on above: Performed By: #### L AB119 #### [place] [address] RENAL EPITHELIAL CELLS, URINE 0-5 Normal U05 [facility] Comment on above: Performed By: #### L AB119 #### [place] [phone] SPECIFIC GRAVITY, URINE 1.040 High 1.005-1.030 [facility] Comment on above: Result Comment: Urin e specific gravity may be affected by X-ray dye, high glucose, high protein, and some chemotherapeutic drugs. Clinical correlation is recommended. Performed By: #### L [id number] #### [place] [address] SQUAMOUS EPITHEAL CELLS, URINE 0-5 Normal U05 [facility] Comment on above: Performed By: #### L AB119 #### [place] [address] UROBILINOGEN, URINE <2 Normal <2 [facility] Comment on above: Performed By: #### L [id number] #### [place] [address] WBC, URINE 0-5 Normal U05 [facility] Comment on above: Performed By: #### L [id number] #### [place] [address] ACTIVATED PARTIAL THROMBOPLA STIN TIMEon 05-08-2020 aPTT Coag (Bld) [Time] 26.0 s Normal 24.5-35.2 [facility] Comment on above: Performed By: #### L [id number] #### [place] [address] BASIC METABOLIC PANELon 04-24 Anion gap [Moles/Vol] 11 mmol/L Normal 5-15 [facility] Comment on above: Performed By: #### L [id number] #### [place] [address] BUN/CREAT RATIO 10 (CALC) Normal 7.0-25.0 [facility] Comment on above: Performed By: #### L [id number] #### [place] [address] Calcium [Mass/Vol] 7.4 mg/dL Low 8.5-10.5 [facility] Comment on above: Performed By: #### L AB064 #### [place] [address] Chloride [Moles/Vol] 103 mmol/L Normal 96-110 [facility] Comment on above: Performed By: #### L [id number] #### [place] [address] CO2 [Moles/Vol] 20 mmol/L Normal 19-32 [facility] Comment on above: Performed By: #### L AB064 #### [place] [address] Creatinine [Mass/Vol] 1.0 mg/dL Normal 0.5-1.4 [facility] Comment on above: Performed By: #### L [id number] #### [place] [address] ESTIMATED GFR 87 ML/MIN/1.73M2 Normal [facility] Comment on above: Result Comment: IF THE PATIENT IS , PLEASE MULTIPLY THIS BY 1.159. THIS RESULT HAS BEEN CALCULATED ASSUMING THE PATIENT IS NON- Performed By: #### L AB064 #### [place] [address] Glucose [Mass/Vol] 206 mg/dL High 70-99 [facility] Comment on above: Performed By: #### L AB064 #### [place] [address] Potassium [Moles/Vol] 4.8 mmol/L Normal 3.4-5.3 [facility] Comment on above: Result Comment: HEMO LYZED POTASSIUM RESULTS ARE ELEVATED BY SPECIMEN HEMOLYSIS Performed By: #### L [id number] #### [place] [address] Sodium [Moles/Vol] 134 mmol/L Low 135-148 [facility] Comment on above: Performed By: #### L [id number] #### [place] [address] Urea nitrogen [Mass/Vol] 10 mg/dL Normal 3-29 [facility] Comment on above: Performed By: #### L [id number] #### [place] [address] COMPLETE BLOOD COUNTon 05-08 Erythrocyte distribution width (RBC) [Ratio] 14.0 % Normal 9.0-15.0 [facility] Comment on above: Performed By: #### L [id number] #### [place] [address] Hematocrit (Bld) [Volume fraction] 40.4 % Low 41.0-50.0 [facility] Comment on above: Performed By: #### L [id number] #### [place] [address] Hemoglobin (Bld) [Mass/Vol] 13.7 g/dL Low 13.8-17.2 [facility] Comment on above: Performed By: #### L [id number] #### [place] [address] MCH (RBC) [Entitic mass] 30.4 pg Normal 27.0-33.0 [facility] Comment on above: Performed By: #### L [id number] #### [place] [address] MCHC (RBC) [Mass/Vol] 33.9 g/dL Normal 32.0-36.0 [facility] Comment on above: Performed By: #### L [id number] #### [place] [address] MCV (RBC) [Entitic vol] 89.9 fL Normal 80.0-100.0 M [facility] Comment on above: Performed By: #### L [id number] #### [place] [address] Platelets (Bld) [#/Vol] 164 10*3/uL Normal 130-400 [facility] Comment on above: Performed By: #### L [id number] #### [place] [address] RBC COUNT 4.49 M/MM3 Normal 4.40-5.80 [facility] Comment on above: Performed By: #### L AB119 #### [place] [address] WBC (Bld) [#/Vol] 16.8 10*3/uL High 3.8-10.8 [facility] Comment on above: Performed By: #### L AB119 #### [place] [address] COMPLETE BLOOD COUNT WITH DI FFERENTIALon 05-08-2020 ABSOLUTE BASOPHIL 0.1 K/MM3 Normal 0.0-0.3 [facility] Comment on above: Performed By: #### L AB119 #### [place] [address] ABSOLUTE SEGMENTED NEUTROPHIL 13.5 K/MM3 High 1.5-7.8 [facility] Comment on above: Performed By: #### L [id number] #### [place] [address] Basophils/100 WBC (Bld) 0.3 % Normal 0.0-2.0 [facility] Comment on above: Performed By: #### L AB119 #### [place] [address] Eosinophils (Bld) [#/Vol] 0.0 10*3/uL Normal 0.0-0.6 [facility] Comment on above: Performed By: #### L [id number] #### [place] [address] Eosinophils/100 WBC (Bld) 0.1 % Normal 0.0-7.0 [facility] Comment on above: Performed By: #### L AB119 #### [place] [address] Erythrocyte distribution width (RBC) [Ratio] 13.8 % Normal 9.0-15.0 [facility] Comment on above: Performed By: #### L AB119 #### [place] [address] Hematocrit (Bld) [Volume fraction] 39.7 % Low 41.0-50.0 [facility] Comment on above: Performed By: #### L [id number] #### [place] [address] Hemoglobin (Bld) [Mass/Vol] 13.2 g/dL Low 13.8-17.2 [facility] Comment on above: Performed By: #### L [id number] #### [place] [address] Lymphocytes (Bld) [#/Vol] 1.0 10*3/uL Normal 0.9-4.1 [facility] Comment on above: Performed By: #### L [id number] #### [place] [address] Lymphocytes/100 WBC (Bld) 6.4 % Low 18.0-47.0 [facility] Comment on above: Performed By: #### L AB119 #### [place] [address] MCH (RBC) [Entitic mass] 30.4 pg Normal 27.0-33.0 [facility] Comment on above: Performed By: #### L AB119 #### [place] [address] MCHC (RBC) [Mass/Vol] 33.2 g/dL Normal 32.0-36.0 [facility] Comment on above: Performed By: #### L AB119 #### [place] [address] MCV (RBC) [Entitic vol] 91.6 fL Normal 80.0-100.0 [facility] Comment on above: Performed By: #### L [id number] #### [place] [address] Monocytes (Bld) [#/Vol] 1.3 10*3/uL High 0.2-1.1 [facility] Comment on above: Performed By: #### L AB119 #### [place] [address] Monocytes/100 WBC (Bld) 8.1 % Normal 0-14.0 M [facility] Comment on above: Performed By: #### L [id number] #### [place] [address] Platelets (Bld) [#/Vol] 187 10*3/uL Normal 130-400 [facility] Comment on above: Performed By: #### L [id number] #### [place] [address] RBC COUNT 4.34 M/MM3 Low 4.40-5.80 [facility] Comment on above: Performed By: #### L AB119 #### [place] [address] Segmented neutrophils/100 WBC (Bld) 85.1 % High 40.0-75.0 [facility] Comment on above: Performed By: #### L AB119 #### [place] [address] WBC (Bld) [#/Vol] 15.9 10*3/uL High 3.8-10.8 [facility] Comment on above: Performed By: #### L AB119 #### [place] [address] ETHANOLon 05-08-2020 Ethanol [Mass/Vol] Not detected Normal NONDT [facility] Comment on above: Performed By: #### L [id number] #### [place] [address] HEMOGLOBIN AND HEMATOCRITon 05-08-2020 Hematocrit (Bld) [Volume fraction] 37.0 % Low 41.0-50.0 [facility] Comment on above: Performed By: #### L [id number] #### [place] [address] Hemoglobin (Bld) [Mass/Vol] 12.5 g/dL Low 13.8-17.2 [facility] Comment on above: Performed By: #### L [id number] #### [place] [address] LACTIC ACIDon 05-08-2020 Lactate [Moles/Vol] 4.0 mmol/L High 0.5-2.2 [facility] Comment on above: Result Comment: Per the request of [facility]'s ER Froid and approval by the [facility] [employer] and Medical Executive Committee, this critical value was not called to the caregiver. (NOTE) If ruling out sepsis: Result >2.0 meets criteria for severe sepsis, recommend repeat testing to rule out sepsis. Result >=4.0 meets criteria for septic shock. Performed By: #### L [id number] #### [place] [address] PREPARE RED BLOOD CELLSon PREPARE RED BLOOD CELLS UNIT PRODUCT COD E: [id number] PREPARE RED BLOOD CELLS: RED BLOOD CELLS, CPD>AS1, LEUKOCYTES REDUCED UNIT ID: [id number] UNIT ABO: O UNIT RH: POSITIVE UNIT DISPENSE STATUS: Emergency Issue UNIT EXPIRATION DATE: UNIT BLOOD TYPE: 5100 BLOOD CODING SYS: ISBT 128 [facility] Comment on above: Performed By: #### L [id number] #### [place] [address] PREPARE RED BLOOD CELLS UNIT PRODUCT COD E: [id number] PREPARE RED BLOOD CELLS: RED BLOOD CELLS, CPD>AS1, LEUKOCYTES REDUCED UNIT ID: [id number] UNIT ABO: O UNIT RH: POSITIVE UNIT DISPENSE STATUS: Emergency Issue UNIT EXPIRATION DATE: UNIT BLOOD TYPE: 5100 BLOOD CODING SYS: ISBT 128 [facility] Comment on above: Performed By: #### L [id number] #### [place] [address] PREPARE RED BLOOD CELLS UNIT PRODUCT COD E: [id number] PREPARE RED BLOOD CELLS: RED BLOOD CELLS, CPD>AS1, LEUKOCYTES REDUCED UNIT ID: [id number] UNIT ABO: O UNIT RH: POSITIVE UNIT INTERPRETATION: Compatible UNIT DISPENSE STATUS: Presumed Transfused UNIT EXPIRATION DATE: UNIT BLOOD TYPE: 5100 BLOOD CODING SYS: ISBT 128 UNIT PRODUCT CODE: [id number] PREPARE RED BLOOD CELLS: RED BLOOD CELLS, CPD>AS1, LEUKOCYTES REDUCED UNIT ID: [id number] UNIT ABO: O UNIT RH: POSITIVE UNIT INTERPRETATION: Compatible UNIT DISPENSE STATUS: Presumed Transfused UNIT EXPIRATION DATE: UNIT BLOOD TYPE: 5100 BLOOD CODING SYS: ISBT 128 Normal [facility] Comment on above: Performed By: #### L [id number] #### [place] [address] PROTHROMBIN TIMEon INR Coag (PPP) [Relative time] 1.2 {INR} High 0.9-1.1 [facility] Comment on above: Result Comment: MODERATE-INTENSITY WARFARIN THERAPY: 2.0-3.0 HIGHER-INTENSITY WARFARIN THERAPY: 3.0-4.0 Performed By: #### L [id number] #### [place] [address] PT Coag (PPP) [Time] 15.3 s High 11.7-13.9 [facility] Comment on above: Performed By: #### L [id number] #### [place] [address] SURGICAL PATHOLOGYon 021 SURGICAL PATHOLOGY SURGICAL PATHOLOGY REPORT Path #: [id number] Patient : JUAN CARLOS NOGUERA #: [id number] Date: 05/09/2020 Pre Op Diagnosis Splenic laceration [...] is an area of focal hemorrhage present. Chemical Unit Operator sections to include area of described defect and an area of focal hemorrhage are submitted in cassettes A through C . Note that the section with capsule still attached is submitted in cassette A . Technical work associated with this pathology investigation was performed by: [place], [place], [place] [address]. [facility]05/09/2020 Kat Aguilera Billing Fee Codes [phone] The CPT codes provided are based on AMA guidelines and are for informational purposes only. CPT coding is the sole responsibility of the billing democrat. Please direct any questions regarding coding to the payer being billed. Normal [facility] Comment on above: Performed By: #### L [id number] #### [place] [address] TYPE AND SCREENon 05-08-2020 TYPE AND SCREEN ABO GROUP: O RH TYPE: Positive INDIRECT ANTIGLOB: Negative SPECIMEN EXPIRATION DATE/TIME: [id number] Normal [facility] Comment on above: Performed By: #### L [id number] #### [place] [address] VENOUS BLOOD GASon BASE EXCESS,VENOUS -7.3 MMOL/L [facility] Comment on above: Result Comment: BASE EXCESS NORMALS: -2 TO +3 Performed By: #### L [id number] #### [place] [address] HCO3 (Bld) [Moles/Vol] 21.4 mmol/L Low 24.0-28.0 M [facility] Comment on above: Performed By: #### L [id number] #### [place] [address] O2 ADMINISTRATED UNKNOWN Normal [facility] Comment on above: Performed By: #### L [id number] #### [place] [address] Oxygen saturation in Blood 71.3 % High 40.0-70.0 [facility] Comment on above: Performed By: #### L [id number] #### [place] [address] PCO2, VENOUS 55.7 MM HG High 41.0-51.0 [facility] Comment on above: Performed By: #### L [id number] #### [place] [address] PH, VENOUS 7.19 Low 7.32-7.42 [facility] Comment on above: Performed By: #### L [id number] #### [place] [address] PO2, VENOUS 43.6 MM HG High 25.0-40.0 [facility] Comment on above: Performed By: #### L [id number] #### [place] [address] SURGICALon 04-30-2017 SUR[facility] JUAN CARLOS DOUGLAS [id number]. Page [address] [place] [address] PROC: 04/30/2017[facility] RECV: 04/30/201[address] RPTD: 05/08/2017[place] [address] LOC: OI ACCT: SEX: M [id number] AGE: 46 Y : 1970 PATHOLOGY REPORT ATTN: RETye: JOSE Velazquezinical Information: RIGHT HIP AVASCULAR NECROSISFINAL DIAGNOSIS:Femoral head, right hip, removal: Areas of non-viable bone with features of coagulative necrosis.Specimen:FEMO RAL HEAD, RIGHT HIPGross Examination:The container is labeled Juan Carlos Noguera, right hip femoral head.Received in formalin is a femoral head measuring 5 cm in length x 5 cmin diameter. The articular cartilage surface is xavier, smooth andglistening. There is separation of the cartilage from the underlyingbone. The resection line is unremarkable. Chemical Unit Operator sections aresubmitted after decalcification. ALP/DKR:jcsMicroscopic Examination:Microscopi c examination was performed.[id number] KAT MONTOYA D.O., F.DarrenP.[facility]/ [facility] Printed on: 05/08/2017750 [place], [place] [address]Dscvahcz print date: 05/08/2017 [facility] [place] [facility] TYPE AND SCREEN CAPTUREon ABO CAPTURE O [facility] [place] [facility] Comment on above: Performed By: #### C T+S ####[address] [place] [address] INDIRECT NEGAR CAPTURE Negative Normal [facility] Comment on above: Performed By: #### C T+S ####[facility] [place] [address] RH CAPTURE (2 D CLONES) Positive Normal [facility] Comment on above: Performed By: #### C T+S ####[address] [place] [address] Progress Noteon 04-14-2017 HIM IP Note OR Broadcast Technician [facility] [place] [facility] Vital Signs Date Time Vital Sign Value Performing Clinician Faci lity 12-24-2023 13: Body height 187.96 cm MD Moreno Barrera Work Phone: [facility] 12-24-2023 13: Body mass index (BMI) [Ratio] 26.3 kg/m2 MD Moreno Barrera Work Phone: [facility] 12-24-2023 13: Body temperature 98.2 [degF] MD Moreno Barrera Work Phone: [facility] 12-24-2023 13: Body weight 92.98 kg MD Moreno Barrera Work Phone: [facility] 12-24-2023 13:17-0400 Diastolic blood pressure 66 mm[Hg] MD Moreno Barrera Work Phone: [facility] 12-24-2023 13:17-0400 Heart rate 51 /min MD Moreno Barrera Work Phone: [facility] 12-24-2023 13:17-0400 Respiratory rate 18 /min MD Moreno Barrera Work Phone: [facility] 12-24-2023 13:17-0400 SaO2% (BldA) [Mass fraction] 98 % MD Moreno Barrera Work Phone: [facility] 12-24-2023 13:17-0400 Systolic blood pressure 107 mm[Hg] MD Moreno Barrera Work Phone: [facility] 11-28-2023 11:43-0400 Diastolic blood pressure 68 mm[Hg] Tylor Kirnus [facility] 11-28-2023 11:43-0400 Heart rate 102 /min Tylor Kir[facility] 11-28-2023 11:43-0400 Respiratory rate 16 /min Tylor [facility] 11-28-2023 11:43-0400 SaO2% (BldA) [Mass fraction] 98 % Tylor Kirnus [facility] 11-28-2023 11:43-0400 Systolic blood pressure 118 mm[Hg] Tylor Kirnus [facility] 11-12-2023 07:30-0400 Body temperature 97.8 [degF] MD Moreno Barrera Work Phone: [facility] 11-12-2023 07:30-0400 Diastolic blood pressure 76 mm[Hg] MD Moreno Barrera Work Phone: [facility] 11-12-2023 07:30-0400 Heart rate 65 /min MD Morneo Barrera Work Phone: [facility] 11-12-2023 07:30-0400 Respiratory rate 16 /min MD Moreno Barrera Work Phone: [facility] 11-12-2023 07:30-0400 SaO2% (BldA) [Mass fraction] 99 % MD Moreno Barrera Work Phone: [facility] 11-12-2023 07:30-0400 Systolic blood pressure 108 mm[Hg] MD Moreno Barrera Work Phone: [facility] 11-11-2023 13:51-0400 Body height 187.96 cm MD Moreno Barrera Work Phone: [facility] 11-10-2023 09:00-0400 Body weight 90.9 kg MD Moreno Barrera Work Phone: [facility] 11-06-2023 14:48-0400 Body temperature 98.2 [degF] MD Moreno Barrera Work Phone: [facility] 11-06-2023 14:48-0400 Diastolic blood pressure 88 mm[Hg] MD Moreno Barrera Work Phone: [facility] 11-06-2023 14:48-0400 Heart rate 83 /min MD Moreno Barrera Work Phone: [facility] 11-06-2023 14:48-0400 Respiratory rate 18 /min MD Moreno Barrera Work Phone: [facility] 11-06-2023 14:48-0400 SaO2% (BldA) [Mass fraction] 98 % MD Moreno Barrera Work Phone: [facility] 11-06-2023 14:48-0400 Systolic blood pressure 116 mm[Hg] MD Moreno Barrera Work Phone: [facility] 11-06-2023 11:23-0400 Body height 187.96 cm MD Moreno Barrera Work Phone: [facility] 11-06-2023 11:23-0400 Body weight 94.3 kg MD Moreno Barrera Work Phone: [facility] 10-07-2023 14:40-0400 Diastolic blood pressure 80 mm[Hg] Tylor [facility] 10-07-2023 14:40-0400 Heart rate 99 /min Tyl[facility] 10-07-2023 14:40-0400 Respiratory rate 16 /min Tyl[facility] 10-07-2023 14:40-0400 SaO2% (BldA) [Mass fraction] 96 % Tylor [facility] 10-07-2023 14:40-0400 Systolic blood pressure 128 mm[Hg] Tylor [facility] 08-11-2023 14:53-0400 Diastolic blood pressure 82 mm[Hg] Tylor [facility] 08-11-2023 14:53-0400 Heart rate 101 /min Tyl[facility] 08-11-2023 14:53-0400 SaO2% (BldA) [Mass fraction] 96 % [facility]ylor [facility] 08-11-2023 14:53-0400 Systolic blood pressure 136 mm[Hg] Tylor [facility] 07-31-2023 08:08-0400 Diastolic blood pressure 71 mm[Hg] Tylor [facility] 07-31-2023 08:08-0400 Systolic blood pressure 100 mm[Hg] Tylor [facility] 07-31-2023 08:05-0400 Heart rate 133 /min [facility]yl[facility] 07-31-2023 08:05-0400 Respiratory rate 15 /min [facility]yl[facility] 07-31-2023 08:05-0400 SaO2% (BldA) [Mass fraction] 99 % [facility]ylor [facility] 07-31-2023 08:04-0400 Diastolic blood pressure 65 mm[Hg] Tylor [facility] 07-31-2023 08:04-0400 Systolic blood pressure 105 mm[Hg] Tylor [facility] 07-31-2023 08:00-0400 Diastolic blood pressure 95 mm[Hg] Tylor [facility] 07-31-2023 08:00-0400 Heart rate 101 /min Tyl[facility] 07-31-2023 08:00-0400 Respiratory rate 14 /min [facility]yl[facility] 07-31-2023 08:00-0400 Systolic blood pressure 118 mm[Hg] Tylor [facility] 07-31-2023 07:55-0400 Heart rate 99 /min [facility]yl[facility] 07-31-2023 07:55-0400 Respiratory rate 15 /min [facility]yl[facility] 07-31-2023 07:55-0400 SaO2% (BldA) [Mass fraction] 99 % Tylor [facility] 07-31-2023 06:46-0400 Heart rate 99 /min [facility]yl[facility] 07-25-2023 10:54-0400 Diastolic blood pressure 82 mm[Hg] Tylor [facility] 07-25-2023 10:54-0400 Heart rate 115 /min [facility]yl[facility] 07-25-2023 10:54-0400 SaO2% (BldA) [Mass fraction] 100 % [facility]ylor [facility] 07-25-2023 10:54-0400 Systolic blood pressure 122 mm[Hg] Tylor [facility] 05-30-2023 14:55-0500 Diastolic blood pressure 90 mm[Hg] Zeb Christofferson [facility] 05-30-2023 14:55-0500 Heart rate 52 /min Zeb [facility] 05-30-2023 14:55-0500 SaO2% (BldA) [Mass fraction] 91 % Zeb [facility]offerson [facility] 05-30-2023 14:55-0500 Systolic blood pressure 124 mm[Hg] Zeb [facility] 05-02-2023 13:06-0500 Diastolic blood pressure 82 mm[Hg] Zeb [facility]erson [facility] 05-02-2023 13:06-0500 Heart rate 54 /min Zeb [facility] 05-02-2023 13:06-0500 SaO2% (BldA) [Mass fraction] 96 % Zeb [facility] 05-02-2023 13:06-0500 Systolic blood pressure 138 mm[Hg] Zeb Delarosa [facility] 04-17-2023 07:36-0500 Body height 187.96 cm MD Moreno Barrera Work Phone: [facility] 04-17-2023 07:36-0500 Body weight 99.79 kg MD Moreno Barrera Work Phone: [facility] 03-20-2023 13:47-0500 Diastolic blood pressure 80 mm[Hg] Zeb Delarosa [facility] 03-20-2023 13:47-0500 Heart rate 116 /min Zeb Delarosa [facility] 03-20-2023 13:47-0500 SaO2% (BldA) [Mass fraction] 96 % Zeb Delarosa [facility] 03-20-2023 13:47-0500 Systolic blood pressure 132 mm[Hg] Zeb Delarosa [facility] 12-05-2022 11:30-0400 Body height 187.96 cm Moreno Barrera Other Time To Cater Other 12-05-2022 11:30-0400 Body mass index (BMI) [Ratio] 25.75 kg/m2 Moreno Barrera Other [employer] Other 12-05-2022 11:30-0400 Body weight 90.99 kg Moreno Barrera Other [employer] C[employer] Other 12-05-2022 11:30-0400 Diastolic blood pressure 88 mm[Hg] Moreno Barrera Other [employer] Other 12-05-2022 11:30-0400 Respiratory rate 20 /min Moreno Barrera Other [employer] C[employer] Other 12-05-2022 11:30-0400 Systolic blood pressure 134 mm[Hg] Moreno Connie Other [employer] Other 09-30-2022 13:50-0400 Body height 187.96 cm Kat Boss Other [employer] Other 09-30-2022 13:50-0400 Body mass index (BMI) [Ratio] 25.83 kg/m2 Kat Boss Other [facility] Other 09-30-2022 13:50-0400 Body temperature 97.7 [degF] Kat Boss Other [employer] [facility] Other 09-30-2022 13:50-0400 Body weight 91.26 kg Kat Boss Other [facility] [employer] [facility] Other 09-30-2022 13:50-0400 Diastolic blood pressure 76 mm[Hg] Kat Boss Other [employer] C[employer] Other 09-30-2022 13:50-0400 Respiratory rate 18 /min Kat Boss Other [facility] Cater Other 09-30-2022 13:50-0400 SaO2% (BldA) [Mass fraction] 98 % Kat Boss Other [employer] Cater Other 09-30-2022 13:50-0400 Systolic blood pressure 132 mm[Hg] Kat Boss Other [employer] Cater Other 06-11-2021 08:25-0400 Body height 187.96 cm M.D. Diana Peoples Work Phone: [facility] Work Phone: 06-11-2021 08:25-0400 Body mass index (BMI) [Ratio] 24.6 kg/m2 M.D. Diana Forbesters Work Phone: [facility] Work Phone: 06-11-2021 08:25-0400 Body temperature 96.1 [degF] M.D. Diana Peoples Work Phone: [facility] Work Phone: 06-11-2021 08:25-0400 Body weight 87.09 kg M.D. Diana Shelton Work Phone: [facility] Work Phone: 06-11-2021 08:25-0400 Diastolic blood pressure 62 mm[Hg] M.D. Diana Shelton Work Phone: [facility] Work Phone: 06-11-2021 08:25-0400 Heart rate 74 /min M.D. Diana Shelton Work Phone: [facility] Work Phone: 06-11-2021 08:25-0400 SaO2% (BldA) [Mass fraction] 99 % M.D. Diana Peoples Work Phone: [facility] Work Phone: 06-11-2021 08:25-0400 Systolic blood pressure 122 mm[Hg] M.D. Diana Forbesters Work Phone: [facility] Work Phone: 03-12-2021 07:57-0500 Body height 187.96 cm M.D. Diana Forbesters Work Phone: [facility] Work Phone: 03-12-2021 07:57-0500 Body mass index (BMI) [Ratio] 25.2 kg/m2 M.D. Diana Peoples Work Phone: [facility] Work Phone: 03-12-2021 07:57-0500 Body temperature 96.3 [degF] M.D. Diana Peoples Work Phone: [facility] Work Phone: 03-12-2021 07:57-0500 Body weight 89.36 kg M.D. Diana Peoples Work Phone: [facility] Work Phone: 03-12-2021 07:57-0500 Diastolic blood pressure 72 mm[Hg] M.D. Diana Peoples Work Phone: [facility] Work Phone: 03-12-2021 07:57-0500 Heart rate 132 /min M.D. Diana Peoples Work Phone: [facility] Work Phone: 03-12-2021 07:57-0500 SaO2% (BldA) [Mass fraction] 97 % M.D. Diana Peoples Work Phone: [facility] Work Phone: 03-12-2021 07:57-0500 Systolic blood pressure 138 mm[Hg] M.D. Diana Peoples Work Phone: [facility] Work Phone: 02-12-2021 07:45-0500 Body height 187.96 cm M.D. Diana Peoples Work Phone: [facility] Work Phone: 02-12-2021 07:45-0500 Body mass index (BMI) [Ratio] 25.2 kg/m2 M.D. Diana Peoples Work Phone: [facility] Work Phone: 02-12-2021 07:45-0500 Body temperature 96.3 [degF] M.D. Diana Peoples Work Phone: [facility] Work Phone: 02-12-2021 07:45-0500 Body weight 89.36 kg M.D. Diana Peoples Work Phone: [facility] Work Phone: 02-12-2021 07:45-0500 Diastolic blood pressure 72 mm[Hg] M.D. Diana Peoples Work Phone: [facility] Work Phone: 02-12-2021 07:45-0500 Heart rate 76 /min M.D. Diana Peoples Work Phone: [facility] Work Phone: 02-12-2021 07:45-0500 SaO2% (BldA) [Mass fraction] 100 % M.D. Diana Peoples Work Phone: [facility] Work Phone: 02-12-2021 07:45-0500 Systolic blood pressure 126 mm[Hg] M.D. Diana Peoples Work Phone: [facility] Work Phone: Encounters Encounter Date Encounter Type Care Provider Facility Start: 12-26-2023 End: 12-26-2023 ambulatory [facility] Start: 12-24-2023 End: 12-24-2023 ambulatory MD Moreno Barrera Work Phone: [facility] Work Phone: Start: 12-24-2023 End: 12-24-2023 Patient encounter procedure MD Moreno Barrera Work Phone: [facility] Work Phone: Start: 12-19-2023 ambulatory Ronaldo Sahu acility:[facility] Start: 12-19-2023 Registered Recurring MD Moreno Barrera Work Phone: [facility] Start: 12-04-2023 End: 12-04-2023 ambulatory JENNIFER AVERY Not Available Start: 11-28-2023 End: 11-28-2023 ambulatory XXXX NONE Facility:[facility] Start: 11-28-2023 End: 11-28-2023 Patient encounter procedure Tylor Knight [facility] Start: 11-07-2023 Non-patient / Non-visit MD Moreno Barrera Work Phone: [facility] Work Phone: Start: 11-06-2023 End: 11-12-2023 Evaluation and management of inpatient MD Moreno Barrera Work Phone: [facility]-[address] [place] [address] Work Phone: Start: 11-06-2023 Registered Recurring MD Moreno Barrera Work Phone: [facility] Start: 10-27-2023 Registered Recurring MD Moreno Barrera Work Phone: [facility] Start: 10-13-2023 End: 10-13-2023 ambulatory JENNIFER AVERY Not Available Start: 10-07-2023 End: 10-28-2023 Pre-admission assessment Tylor Knight [facility] Start: 10-07-2023 End: 10-07-2023 ambulatory MD Tylor Knight Facility:[facility] Start: 10-07-2023 End: 10-07-2023 Patient encounter procedure [facility]ylor Knight [facility] Start: 10-01-2023 End: 10-01-2023 ambulatory MD Tylor Knight Facility:[facility] Start: 10-01-2023 End: 10-01-2023 Patient encounter procedure Chanel Montalvo [facility] Start: 08-11-2023 End: 08-11-2023 ambulatory XXXX NONE Facility:[facility] Start: 08-11-2023 End: 08-11-2023 Patient encounter procedure [facility]ylor Knight [facility] Start: 08-11-2023 End: 08-11-2023 ambulatory JENNIFER AVERY Not Available Start: 07-31-2023 End: 07-31-2023 Admission to same day surgery center Tylor Knight [facility] Start: 07-31-2023 End: 07-31-2023 ambulatory MD Tylor Knight Facility:[facility] Start: 07-25-2023 End: 07-25-2023 ambulatory MD Tylor Knight Facility:[facility] Start: 07-25-2023 End: 07-25-2023 Patient encounter procedure [facility]ylor Knight [facility] Start: 07-15-2023 End: 07-15-2023 ambulatory LESVIA BUTLER Not Available Start: 07-14-2023 End: 07-14-2023 ambulatory ANGELA GARZA Not Available Start: 05-30-2023 End: 05-30-2023 ambulatory XXXX NONE Facility:[facility] Start: 05-30-2023 End: 05-30-2023 Patient encounter procedure Zeb Delarosa [facility] Start: 05-08-2023 End: 05-08-2023 Admission to same day surgery cuney Zeb Delarosa [facility] Start: 05-08-2023 End: 05-08-2023 ambulatory Zeb Delarosa Facility:[facility] Start: 05-02-2023 End: 05-02-2023 ambulatory XXXX NONE Facility:[facility] Start: 05-02-2023 End: 05-02-2023 Patient encounter procedure Zeb Delarosa [facility] Start: 04-17-2023 End: 04-17-2023 Patient encounter procedure MD Moreno Barrera Work Phone: [facility] [place] Work Phone: Start: 04-17-2023 End: 04-17-2023 ambulatory MD Moreno Barrera Work Phone: [facility] Work Phone: Start: 04-15-2023 End: 04-15-2023 ambulatory Zeb Delarosa Facility:[facility] Start: 04-15-2023 End: 04-15-2023 Patient encounter procedure Zeb Delarosa 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 Start: 12-27-2022 End: 12-27-2022 ambulatory Moreno Barrera Other Time To Cater Other Start: 12-27-2022 Telephone encounter Moreno Barrera [facility] Start: 12-10-2022 End: 12-10-2022 ambulatory Moreno Barrera Other Time To Cater Other Start: 12-10-2022 Telephone encounter Moreno Barrera [facility] Start: 12-05-2022 End: 12-05-2022 ambulatory Moreno Barrera Other Time To Cater Other Start: 12-05-2022 Office outpatient ne w 45 minutes Moreno Barrera [facility] Start: 09-30-2022 End: 09-30-2022 ambulatory Kat Boss Other Time To Cater Other Start: 09-30-2022 Office outpatient ne w 20 minutes Kat Boss [facility] Start: 12-20-2021 End: 12-20-2021 ambulatory Marie K. Mckenzie Facility:[facility] Start: 12-18-2021 End: 12-18-2021 ambulatory Marie K. Mckenzie Facility:[facility] Start: 12-12-2021 End: 12-12-2021 ambulatory Marie K. Mckenzie [facility] Start: 12-03-2021 End: 12-03-2021 ambulatory Marie K. Mckenzie Facility:[facility] Start: 12-03-2021 End: 12-03-2021 ambulatory Marie K. Mckenzie [facility] Start: 11-28-2021 End: 11-28-2021 ambulatory Marie K. Mckenzie Facility:[facility] Start: 11-23-2021 End: 11-23-2021 Emergency department patient visit Marie K. Mckenzie Facility:[facility] Start: 10-08-2021 End: 10-08-2021 ambulatory Marie K. Mckenzie Facility:[facility] Start: 09-10-2021 End: 09-10-2021 ambulatory Marie K. Mckenzie Facility:[facility] Start: 06-11-2021 End: 06-11-2021 ambulatory Marie K. Mckenzie Facility:[facility] Start: 06-11-2021 End: 06-11-2021 Patient encounter procedure Ele Peoples Work Phone: [facility] Start: 03-12-2021 End: 03-12-2021 ambulatory Diana Peoples Facility:[facility] Start: 03-12-2021 End: 03-12-2021 Patient encounter procedure Ele Peoples Work Phone: [facility] Start: 02-12-2021 End: 02-12-2021 ambulatory Diana Peoples Facility:[facility] Start: 02-12-2021 End: 02-12-2021 Patient encounter procedure Ele Peoples Work Phone: [facility] Start: 04-28-2017 End: 04-29-2017 Ambulatory JOSE KOROMA [facility] Start: 04-14-2017 End: 04-14-2017 Unknown YONY TAN [facility] Procedures Date Procedure Procedure Detail Performing Clinician Start: 11-06-2023 SARS-CoV-2, Influenza & RSV (PCR) MD Moreno Barrera Work Phone: Start: 11-06-2023 Plain chest X-ray MD Moreno Barrera Work Phone: Start: 07-31-2023 Cardioversion Tylor Knight Start: 05-08-2023 Catheterization of left heart Zeb Delarosa Start: 04-17-2023 MRI of cervical spine without contrast MD Moreno Barrera Work Phone: Start: 04-17-2023 MRI of head MD Moreno Barrera Work Phone: H/O splenectomy Zeb sandoval Insertion of hip prosthesis Zeb Delarosa Lung structure (body structure) Zeb Delarosa Plan of Treatment Date Care Activity Detail Author Start: 11-12-2023 [facility] Start: 11-06-2023 Hospital admission [facility] Patient Education Depression, Ad ult (DC) [facility] [place] [facility] [place] Instructions Know your Meds [facility] Work Phone: Patient referral [facility] Work Phone: Immunizations Immunization Date Immunization Notes Care Provider Fa elaine 05-10-2020 haemophilus influenz ae type b vaccine, PRP-T conjugate Ele Peoples Work Phone: [facility] Work Phone: 05-10-2020 meningococcal polysaccharide (groups A, C, Y and W-135) diphtheria toxoid conjugate vaccine (MCV4P) Ele Peoples Work Phone: [facility] Work Phone: 05-10-2020 pneumococcal conjuga te vaccine, 13 valent Ele Peoples Work Phone: [facility] Work Phone: Payers Date Payer Category Payer Medicaid [id number] 2021 Self-pay [id number] 2021 Unknown [id number] 2016 Unknown [id number] 1968 Unknown [id number] .16.84 [id number] 1968 Unknown [id number] .16.84 0.1.925579.3.579.2.1258 1968 Unknown [id number] .16.84 0.1.871478.3.579.2.1258 1968 Unknown [id number] .16.84 0.1.023879.3.579.2.1258 1968 Unknown [id number] .16.84 0.1.188450.3.579.2.1258 1968 Unknown [id number] 2.16.84 0.1.670181.3.579.2.1259 1968 Unknown [id number] 2.16.84 0.1.647769.3.579.2.1259 1968 Unknown [id number] 2.16.84 0.1.562620.3.579.2.1259 1968 Unknown [id number] 2.16.8 40.1.737367.3.579.2.72 1968 Unknown [id number] 2.16.8 40.1.113509.3.579.2. 1968 Unknown [id number] 2.16.8 40.1.971694.3.579.2. 1968 Unknown [id number] 2.16.8 40.1.301543.3.579.2 1970 Unknown [id number] 2.16.8 40.1.612658.3.579.2. 1970 Unknown [id number] 2.16.8 40.1.355268.3.579.2.72 1970 Unknown [id number] 2.16.8 40.1.943394.3.579.2 1970 Unknown [id number] 2.16.8 40.1.993806.3.579.2. 1970 Unknown [id number] 2.16.8 40.1.001938.3.579.2. 1970 Unknown [id number] 2.16.8 40.1.332716.3.579.2.72 1970 Unknown [id number] 2.16.8 40.1.562059.3.579.2. 1970 Unknown [id number] 2.16. 840.1.508184.3.579.2.1244 Unknown [id number] 2.16.8 40.1.271072.3.579.2.653 Unknown [id number] 2.16.8 40.1.339978.3.579.2.653 Unknown [id number] 2.16.8 40.1.376595.3.579.2.653 Unknown [id number] 2.16.8 40.1.881030.3.579.2.653 Unknown [id number] 2.16.8 40.1.926822.3.579.2.653 Unknown [id number] 2.16.8 40.1.428574.3.579.2.653 Unknown [id number] 2.16.8 40.1.228465.3.579.2.653 Unknown [id number] 2.16.8 40.1.049924.3.579.2.653 Unknown [id number] 2.16.8 40.1.054471.3.579.2.653 Unknown [id number] 2.16.8 40.1.442921.3.579.2.653 Unknown [id number] 2.16.8 40.1.776603.3.579.2.653 Unknown [id number] 2.16.8 40.1.929062.3.579.2.653 Unknown [id number] 2.16.8 40.1.602052.3.579.2.531 Unknown [id number] 2.16.8 40.1.270588.3.579.2.531 Unknown [id number] 2.16.8 40.1.296960.3.579.2.531 Social History Date Type Detail Facility Start: 02-12-2021 End: 02-12-2021 Tobacco smoking status INIS Unknown if ever smoked [facility] Work Phone: Start: 02-12-2021 Current Every Day User [facility] Work Phone: Start: 08-03-2020 Current Every Day Drinker [facility] Work Phone: Start: 02-12-2021 < 1ppd [facility] Work Phone: Start: 08-03-2020 Never [facility] Work Phone: Start: 1970 Sex Assigned At Male F [facility] Start: 03-24-1984 Sex Assigned At F [facility] Start: 03-20-2023 End: 11-28-2023 Tobacco smoking status Light tobacco smoker (finding) [facility] Tobacco smoking status Smokeless tobacco user within last [address] [facility] Start: 11-06-2023 End: 11-07-2023 Tobacco smoking status NHIS Smoker (finding) [facility] Goals Date Patient Goal Desired Activity /State Functional Status Date Assessment Result Facility 11-28-2023 Functional Status N/A [facility] 11-12-2023 Functional status Patient at Baseline [facility] Work Phone: 10-07-2023 Functional Status N/A [facility] 08-11-2023 Functional Status N/A [facility] 07-31-2023 Functional Status N/A [facility] 07-25-2023 Functional Status N/A [facility] 05-30-2023 Functional Status N/A [facility] 05-08-2023 Functional Status N/A [facility] 05-02-2023 Functional Status N/A [facility] 03-20-2023 Functional Status N/A [facility] Mental Status Date Assessment Result Facility 11-12-2023 Cognitive function Cognitive Sta tus Patient at Baseline [facility] Work Phone: Clinical Notes 09-30-2022 to 11-11-2023 Note Date & Type Note Facility 11-11-2023 Progress note Note Date/Time November 11, 2023 12:44pm [facility] [address] [place] [address] Psychiatry Progress Note Signed Patient: Juan Carlos Noguera MR#: [id number] : 1970 Acct:[id number] Age/Sex: 53 / M Adm Date: 4 Loc: Room: [address] [place] [address] Type : ADM IN Attending Dr: Ronaldo Castro MD Copies to: ~ Date of Service: 11/11/2023 Subjective Subjective Narrative: Mr. Juan Carlos Noguera is a 53 year old male on day 5 of hospitalization for depression with suicidal ideation Today, pt presented as pleasant and cooperative; Juan Carlos and medical student discussed at length his tendency to be a people pleaser . Juan Carlos continues to discuss how others are talking about him behind his back and have negative connotations towards him after a history of poor behavior. Juan Carlos was encouraged to focus on the good things so he can improve himself, such as setting goals andcontinuing to work with a mental health care provider. When asked if he felt he was ready for discharge, he continues to express that he feels good here but is unsure how he will cope with his family upon release. He was again encouraged tocontinue to see a mental health provider and to reflect on actions throughout the day that are positive while trying to not think about others' possible negative thoughts about him. Speech was circumstantial and tangential, but fluid. Juan Carlos notes mood improvement since admission. Sleeping and eating well Attending group No SI/HI tolerating current meds MSE Appearance: grossly normal. Fair grooming and hygiene, calm, cooperative, engaged in the interview. Good eye contact. Normal psychomotor activity. Mental Status: mental status grossly normal Mood: good Affect: mood-congruent affect Speech and Movement: speech and movement normal and speech clear. Regular rate, rhythm, volume, and tone. Non pressured. Attitude: cooperative Thought Process: circumstantial, tangential Thought Content: Denies paranoid or delusional thoughts. Denied hallucinations, no homicidality and no suicidality. Does not appear to be responding to internalstimuli. Insight: limited Judgment: limited Patient was personally seen by me on the day of the encounter. I reviewed the history and performed the clark elements of the physical examination. I formulated the plan of care and confirmed this with the medical student as notedbelow. Exam Physical Exam Vital Signs: Temp Pulse Resp BP Pulse Ox O2 Del Method 97.7 F 61 18 106/69 98 Room Air 11/11/23 07:21 11/11/23 07:21 11/11/23 07:21 11/11/23 07:21 11/11/23 07:21 11/11/23 07:21 Assessment/Plan Assessment/Plan (1) Generalized anxiety disorder: (2) Major depressive disorder, recurrent, moderate: Plan Patient presenting due to depression with suicidal ideation Patient was able to coordinate plan for discharge tomorrow with mother who he lives with Continue buspirone 5mg TID Continue sertraline 50mg daily and home meds Continue to monitor atrial fibrillation Continue to monitor mental status Monitor suicidal behaviors for safety of self (15-minute face check). Encourage medication adherence. Risks, benefits, and alternatives of treatment explained Recommend? attending groups and psychoeducation for building coping skills. Risks, benefits and indications of medications were discussed with the patient.? Involve friends/family members to coordinate care and ensure appropriate outpatient appointments are scheduled prior to discharge Documented By: Lino Floyd MD 11/11/23 1037 Signed By: <Electronically signed by Lino Floyd MD> 11/11/23 1345 [facility] Work Phone: 1(391) 278-831808-19-2024 Progress note Author Lino Floyd [facility] November 10, 2023 12:53pm Note Date/Time November 10, 2023 12 :13pm [facility] [address] [place] [address] Psychiatry Progress Note Signed Patient: Juan Carlos Noguera MR#: [id number] : 1970 Acct:[id number] Age/Sex: 53 / M Adm Date: 4 Loc: Room: [address] [place] [address] Type : ADM IN Attending Dr: Ronaldo Castro MD Copies to: ~ Date of Service: 11/10/2023 Subjective Subjective Narrative: Mr. Juan Carlso Noguera is a 53 year old male on day 4 of hospitalization for depression with suicidal ideation Today, pt presented as pleasant and cooperative; pt's thought process is more linear today than previous days; he still reports some paranoid thoughts regarding people talking behind his back about his past, thus preventing him from getting a job; pt discussed desire upon discharge to continue outpatient counselling and to search for a job again; pt believes he has improved since admission Sleeping and eating well Attending group No SI/HI tolerating current meds MSE Appearance: grossly normal. Fair grooming and hygiene, calm, cooperative, engaged in the interview. Good eye contact. Normal psychomotor activity. Mental Status: mental status grossly normal Mood: alright Affect: mood-congruent affect Speech and Movement: speech and movement normal and speech clear. Regular rate, rhythm, volume, and tone. Non pressured. Attitude: cooperative Thought Process: normal; linear, logical, and goal-oriented Thought Content: Reports paranoid thoughts. Denied hallucinations, delusions, nohomicidality and no suicidality. Does not appear to be responding to internal stimuli. Insight: emerging Judgment: limited Patient was personally seen by me on the day of the encounter. I reviewed the history and performed the clark elements of the physical examination. I formulated the plan of care and confirmed this with the medical student as notedbelow. Exam Physical Exam Vital Signs: Temp Pulse Resp BP Pulse Ox O2 Del Method 97.8 F 61 16 104/59 L 97 Room Air 11/10/23 07:23 11/10/23 07:23 11/10/23 07:23 11/10/23 07:23 11/10/23 07:23 11/10/23 07:23 Assessment/Plan Assessment/Plan (1) Generalized anxiety disorder: (2) Major depressive disorder, recurrent, moderate: Plan Patient presenting due to depression with suicidal ideation Doing better at this time, anticipate discharge tomorrow Continue buspirone 5mg TID Continue sertraline 50mg daily and home meds Continue to monitor atrial fibrillation Continue to monitor mental status Monitor suicidal behaviors for safety of self (15-minute face check). Encourage medication adherence. Risks, benefits, and alternatives of treatment explained Recommend? attending groups and psychoeducation for building coping skills. Risks, benefits and indications of medications were discussed with the patient.? Involve friends/family members to coordinate care and ensure appropriate outpatient appointments are scheduled prior to discharge. Documented By: Lino Floyd MD 11/10/23 1207 Signed By: <Electronically signed by Lino Floyd MD> 11/10/23 5389 [facility] Work Phone: 1(606) 244-403308-18-2024 Progress note Author Ronaldo shanks [facility] November 09, 2023 3:23pm Note Date/Time November 09, 2023 1: 28pm [facility] [address] [place] [address] Psychiatry Progress Note Signed Patient: Juan Carlos Nougera MR#: [id number] : 1970 Acct:[id number] Age/Sex: 53 / M Adm Date: 4 Loc: 1S Room: 9G2502-5 Type : ADM IN Attending Dr: Ronaldo Castro MD Copies to: ~ Date of Service: 11/09/2023 Subjective Subjective Narrative: Mr. Juan Carlos Noguera is a 53 year old male on day 3 of hospitalization for depression with suicidal ideation Patient was personally seen by me on the day of the encounter. I reviewed the history and performed the clark elements of the assessment. I formulated the planof care and confirmed this with the medical student as noted below Today, pt presented as anxious but was overall very open and talkative. The pt opened up that he had a rough childhood before being adopted and stated that it led him to making a ton of poor mistakes. The pt mentioned that he feels like heis in a good place since arriving here but worries he will revert back once he gets out. The reason being is that a lot of his family members despise him and make him feel terrible because he has a bad past. The pt stated that they view him as the antichrist and he stated that he just wants to make things right withthem. The pt mentioned that many people in his family think he is caring for hismom because of the money but pt denies this and says he just wants to be a good son. Pt would stray off the topic of his own treatment plan to talk about stories involving previous injuries he has had or about dumb decisions he made. Pt also talked about how Heaven, Hell, and Hades in the interview. Pt's speech was erratic at times and was circumstantial. Pt has no problems with his medications and denies having recent hallucinations or delusions. Sleeping and eating well Attending group No SI/HI tolerating current meds MSE Appearance: grossly normal. Fair grooming and hygiene, calm, cooperative, engaged in the interview. Good eye contact. Normal psychomotor activity. Mental Status: mental status grossly normal Mood: depressed/anxious but overall better Affect: mood-congruent affect Speech and Movement: speech and movement normal and speech clear. Regular rate, rhythm, volume, and tone. Non pressured. Attitude: cooperative Thought Process: circumstantial, thought blocking present Thought Content: Denies paranoid or delusional thoughts. Denied hallucinations, no homicidality and no suicidality. Does not appear to be responding to internalstimuli. Insight: limited Judgment: limited Exam Physical Exam Vital Signs: Temp Pulse Resp BP Pulse Ox O2 Del Method 98 F 63 17 105/70 97 Room Air 11/09/23 07:30 11/09/23 07:30 11/09/23 07:30 11/09/23 07:30 11/09/23 07:30 11/09/23 07:30 Assessment/Plan Assessment/Plan (1) Generalized anxiety disorder: (2) Major depressive disorder, recurrent, moderate: Plan Patient presenting due to depression with suicidal ideation Continue buspirone 5mg TID Continue sertraline 50mg daily and home meds Continue to monitor atrial fibrillation Continue to monitor mental status Monitor suicidal behaviors for safety of self (15-minute face check). Encourage medication adherence. Risks, benefits, and alternatives of treatment explained Recommend? attending groups and psychoeducation for building coping skills. Risks, benefits and indications of medications were discussed with the patient.? Involve friends/family members to coordinate care and ensure appropriate outpatient appointments are scheduled prior to discharge. Documented By: Ronaldo Castro MD 4 [id number] Signed By: <Electronically signed by Ronaldo Castro MD> 11/09/23 1523 [facility] Work Phone: 1(784) 932-965008-17-2024 Progress note Author Ronaldo shanks [facility] November 08, 2023 8:21pm Note Date/Time November 08, 2023 8: 30am [facility] [address] [place] [address] Psychiatry Progress Note Signed Patient: Juan Carlos Noguera MR#: [id number] : 1970 Acct:[id number] Age/Sex: 53 / M Adm Date: 4 Loc: 1S Room: [address] [place] [address] Type : ADM IN Attending Dr: Ronaldo Castro MD Copies to: ~ Date of Service: 11/08/2023 Subjective Subjective Narrative: Mr. Juan Carlos Noguera is a 53 year old male on day 2 of hospitalization for depression with suicidal ideation Today, pt presented as anxious and withdrawn; pt continue to claims that he is a fake person and that things he has done in the past (DUI, alcoholism) will continue to prevent him from being successful; he continues to worry about his mother and where he will go upon discharge; pt's speech is erratic with thought blocking and circumstantial thought processes present Patient was personally seen by me on the day of the encounter. I reviewed the history and performed the clark elements of the assessment. I formulated the planof care and confirmed this with the medical student as noted below Patient presents with a delayed thought process. He occasionally showing signs of thought blocking. He is concerend about his life after his discharge and saidhis family members do not want him to live with his mom. He has a longstanding history of alcohol use disorder. Anxiety has been high and we discussed increasehis Buspar. Discussed contacting either mother or brother for collateral information with pt. Pt does not think this will be helpful because his mom is 94 and his brother doesn't like him, repeats I have no one. States he does notrecall brother's phone number and that his phone is , health science writer suggested charging phone to get number but pt does not think this is a good idea. Will follow up with patient tomorrow regarding same topic as he might be amenable with continued treatment. Sleeping and eating well Attending group No SI/HI tolerating current meds MSE Appearance: grossly normal. Fair grooming and hygiene, calm, cooperative, engaged in the interview. Poor eye contact. Normal psychomotor activity. Mental Status: mental status grossly normal Mood: worse than yesterday, I don't think I should be allowed to get better Affect: mood-congruent affect Speech and Movement: speech and movement normal and speech clear. Regular rate, rhythm, volume, and tone. Non pressured. Attitude: cooperative Thought Process: circumstantial, thought blocking present Thought Content: Denies paranoid or delusional thoughts. Denied hallucinations, no homicidality and no suicidality. Does not appear to be responding to internalstimuli. Insight: limited Judgment: limited Exam Physical Exam Vital Signs: Temp Pulse Resp BP Pulse Ox O2 Del Method 97.6 F 66 16 127/61 99 Room Air 11/07/23 21:44 11/07/23 21:44 11/07/23 21:44 11/07/23 21:44 11/07/23 21:44 11/07/23 21:44 Assessment/Plan Assessment/Plan (1) Generalized anxiety disorder: (2) Major depressive disorder, recurrent, moderate: Plan Patient presenting due to depression with suicidal ideation Increase buspirone 5mg to TID Continue sertraline 50mg daily and home meds Continue to monitor atrial fibrillation Continue to monitor mental status Monitor suicidal behaviors for safety of self (15-minute face check). Encourage medication adherence. Risks, benefits, and alternatives of treatment explained Recommend? attending groups and psychoeducation for building coping skills. Risks, benefits and indications of medications were discussed with the patient.? Involve friends/family members to coordinate care and ensure appropriate outpatient appointments are scheduled prior to discharge. Documented By: Ronaldo Castro MD [id number] Signed By: <Electronically signed by Ronaldo Castro MD> 11/08/232020 [facility] Work Phone: 1(423) 231-463008-16-2024 Consult note Author Avril Fox [facility] November 07, 2023 4:09pm Note Date/Time November 07, 2023 4: 04pm [facility] [address] [place] [address] Cardiology Consult Note Signed Patient: Juan Carlos Noguera MR#: [id number] : 1970 Acct:[id number] Age/Sex: 53 / M Adm Date: 4 Loc: Room: [address] [place] [address] Type: ADM IN Attending Dr: Ronaldo Castro MD Copies to: MD Moreno Santiago MD Mourhaf A Traboulssi, MD~ Cardiology HPI History of Present Illness Consult Date: 11/07/23 Reason for Consult: Cardiac consultation requested for evaluation of atrial fibrillation HPI: Mr. Noguera is a 53 year old male with known history of atrial fibrillation diagnosed last year. He underwent evaluation by the [facility] cardiology group. He was diagnosed with mild nonischemic cardiomyopathy with LVEF around 45%. Mild coronary artery disease based on previous cardiac catheterization didnot require intervention. He did undergo cardioversion once which was successful but failed to remain in normal sinus rhythm. Patient was admitted [facility] mainly because of issue related to his depression and suicidal ideation. He was noted to be in atrial fibrillation his heart rate is slightly elevated. He had no cardiac symptoms. The patient was scheduled to see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
--- NOTE | 2023-12-31 12:34 | MR_ITS ---
The [address] [address] Patient Name: MERI CABRERA MRN: [id number] date: 1970 Sex: M Assigned Patient Location: MRI Current Patient Location: Accession/Order Number: [id number] Exam Date: 12/31/2023 12:49 Report Date: 01/01/2024 06:47 At the request of: NOELLE LE Procedure: MR lumbar spine wo con EXAMINATION: MR lumbar spine wo con HISTORY: Lumbar radiculopathy ; chronic low back pain and bilateral leg weakness. COMPARISON: XR lumbar spine 12/05/2022 TECHNIQUE: A variety of imaging planes and parameters were utilized for visualization of suspected pathology. FINDINGS: For the purposes of numbering, sagittal T2 image # 8 extends from the T12 vertebral body superiorly to the S3 level inferiorly. PARASPINAL AREA: Normal with no visible mass. BONES: No fracture, pars defect, or osseous lesion. CORD/CAUDA EQUINA: Normal caliber, contour, and signal intensity. DISC LEVELS: 12-L1: No significant disc/facet abnormality, spinal stenosis, or foraminal stenosis. L1-L2: No significant disc/facet abnormality, spinal stenosis, or foraminal stenosis. L2-L3: Early degenerative disc disease is present without focal protrusion or neural impingement. L3-L4: No significant disc/facet abnormality, spinal stenosis, or foraminal stenosis. L4-L5: Moderate left and mild right foramen narrowing. No significant central canal narrowing. Mild diffuse disc bulging and disc desiccation without disc height reduction. Mild degenerative facet arthropathy. L5-S1: Mild foramen narrowing bilaterally; no significant central canal narrowing. Mild diffuse disc bulging and small posterior disc protrusion. Mild disc height reduction. Moderate left, mild right degenerative facet arthropathy. MR/MR lumbar spine wo con IMPRESSION: 1. Mild to moderate degenerative changes at L4-L5 and L5-S1 without specific findings to account for patient's symptoms. Electronically authenticated by: JENNY MAGAÑA Date: 01/01/2024 06:47
== END 2023-12-31 12:26 | disposition home or self-care (01) ==
LOC: MRI 12:27
PROVIDERS: PCP Family Medicine; Visit Provider Nurse Practitioner Family
DX: M54.16 Radiculopathy, lumbar region (principal); M51.369 Other intervertebral disc degeneration, lumbar region without mention of lumbar back pain or lower extremity pain
CPT/HCPCS: 72148

== ENCOUNTER 2024-01-16 10:24 | Outpatient (OUT) | payer OTHER, SELFPAY ==
--- OUTSIDE RECORDS SUMMARY | 2024-01-16 09:39 | XMS_ITS | CCD ---
Author Organization [facility] Care Team Providers Care 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 Name Role Phone TAN YONY Tenisha Unavailable Unavailable No Family, Physician Unavailable Unavailable JOSE KOROMA Unavailable Unavailable No Family, Physician Unavailable Unavailable Ele Peoples Family Provider [phone] Claudia Mckenzie Primary Care Provider Claudia Mckenziendtenisha Cloud Attending Provider [phone] Ele Peoples Family Provider Claudia Mckenzie Primary Care Provider Claudia Mckenziendtenisha Cloud Attending Provider [phone] Diana Peoples Consulting Unavailable Mckenzie, Marie Magno. [...] Barrera Unavailable MORENO BARRERA Primary Care Physician MELANY Avery Jennifer Attending Provider Unavailable MD Moreno Barrera Primary Care Provider MD Moreno Barrera Primary Care Provider MD Ronaldo Castro Attending Provider [phone] MD Arnaldo [facility] Emergency Provider MD Ronaldo Castro Admit Provider MD Moreno Barrera Primary Care Provider MD Ronaldo Castro Attending Provider MD Moreno Barrera Primary Care Provider MD Lino Floyd Attending Provider [phone] MD Ronaldo Castro Attending Provider CHEYENNE HORN Admitting Unavailable CHEYENNE HORN Attending Unavailable MORENO BARRERA Primary Care Unavailable Moreno Barrera MD Primary Care Provider Cheyenne Horn MD Unavailable CHEYENNE HORN Attending Unavailable MORENO BARRERA Primary Care Unavailable LESVIA BUTLER Attending Unavailable LESVIA BUTLER Referring Unavailable ANGELA GARZA Attending Unavailable ANGELA GARZA Referring Unavailable JENNIFER AVERY Attending Unavailable BENNIE, JENNIFER Attending Unavailable BENNIE, JENNIFER Attending Unavailable BENNIE, JENNIFER Attending Unavailable Moreno Barrera MD Primary Care Provider Amalia Burleson Consulting Unavailable Ronaldo Castro Admitting Unavailab Lino Terry Attending Unavailable Moreno Barrera Primary Care Unavailable Chapito Watts Consulting Unavailable StonerLashon Consulting Unavailable Jose Hairston Consulting Unavail able Avril Fox Consulting Unavailable Clark Sim Consulting Unavailab Suki Sanchez Consulting Unavailable Neris Vences Consulting Unavailable Charlie Benítez Consulting Unavailab Estephanie Limon Consulting Unavailable Marie Lara Consulting Unavailable Morneo Barrera Primary Care Unavailable Jennifer Avery Admitting Unavailable Jennifer Avery Attending Unavailable Stephan Castroelrahman Admitting Unavailab le Ronaldo Castro Attending Unavailab Moreno Johns Primary Care Unavailable MD Tylor Knight Admitting Unavailable NONE, XXXX Referring Unavailable MD Tylor Knight Attending Unavailable NONE, XXXX Referring Unavailable MD Tylor Knight Attending Unavailable NONE, XXXX Referring Unavailable Zeb Delarosa Attending Unavaila ble NONE, XXXX Referring Unavailable Zeb Delarosa Attending Unavaila ble NONE, XXXX Referring Unavailable MD Tylor Knight Attending Unavailable MD Tylor Knight Referring Unavailable MD Tylor Knight Admitting Unavailable MD Tylor Knight Attending Unavailable Zeb Delarosa Attending Unavaila Zeb Rivera Referring Unavaila Zeb Rivera Admitting Unavaila eZb Rivera Consulting Unavaila Zeb Rivera Attending Unavaila Zeb Rivera Referring Unavaila Zeb Rivera Admitting Unavaila Zeb Rivera Consulting Unavaila ble Babar Montalvom G. Admitting Unavailable Chanel Montalvo Attending Unavailable MD Tylor Knight Referring Unavailable JENNIFER AVERY Referring Unavail able Zeb Delarosa Attending Unavailtenisha ramirez NONE, XXXX Referring Unavailable MD Tylor Knight Admitting Unavailable MD Tylor Knight Attending Unavailable NONE, XXXX Referring Unavailable MD Tylor Knight Attending Unavailable Allergies Allergy Classification Reported Allergen(s) Allergy Type Date of Onset Reaction(s) Facility (3 sources) DULoxetine Drug Allergy 4 [facility] Work Phone: (1 source) Unable to Assess Drug allergy (disorder) 4 [facility] Repository (1 source) No Known Medication Allergies; Translations: [No Known Medication Allergies] Propensity to adverse reactions (disorder) [facility] Repository Medications Current Medications Medication Drug Class(es) Dates Sig (Normalized) Sig (Original) Tylenol (17 sources) Start: 03-20-2023 Tylenol Refill s(s) 0 Start Date: 03/20/23 Status: Ordered take 1-2 capsules by mouth every six hours as needed acetaminophen (Tylenol) 325 MG capsule T jalen 1-2 capsules by mouth every 6 (six) hours if needed Active take 1 tablet by sabrina th every six hours as needed acetaminophen (Tylenol) 325 mg tablet Ta ke 1 tablet (325 mg) by mouth every 6 hours if needed for mild pain (1 - 3). Active [id number] 200 actuat albuterol 0.09 mg/actuat metered dose inhaler (20 sources) beta2-Adrenergic Agonist Start: 06-14-2023 take 2 puff(s) by inhalation every four hours albuterol 90 mcg/actuation inhaler Inhale 2 puffs every 4 hours if needed. 06/14/2023 Active Start: 05-28-2023 End: 12-17-2023 take 2 puff(s) [...] lls(s) 0 Start Date: 03/20/23 Status: Ordered Start: 01-07-2023 take 2 puff(s) by in halation every four hours albuterol HFA 90 mcg/act inhaler Inhale 2 puffs every 4 (four) hours if needed 01/07/2023 Active take 2 puff(s) by in halation every four hours as needed Albuterol Sulfate HFA 108 (90 Base) MCG/ACT 2 puff Inhalation every 4 hrs prn Active amiodarone hydrochloride 200 mg oral tablet (2 sources) Antiarrhythmic Start: 12-30-2023 take 1 tablet by mouth once daily amiodarone 200 mg Tab 200 mg = 1 tab(s), Oral, Daily, # 30 tab(s), Refills(s) 5, Pharmacy: [facility]/pharmacy #[id number], 178, cm, 12/30/23 14:47:00 EDT, Height/Length Dosing, 95.2, kg, 12/30/23 14:47:00 EDT, Weight Dosing Start Date: 12/30/23 Status: Ordered Start: 12-30-2023 take 1 tablet by sabrina th once daily amiodarone 400 mg oral tablet 400 mg = 1 tab(s), Oral, BID, take 1 tab twice a day for 10 days, then take 1 tab once a day for 5 days, # 25 tab(s), Refills(s) 0, Pharmacy: [facility]/pharmacy #[id number], 178, cm, 12/30/23 14:47:00 EDT, Height/Length Dosing, 95.2, kg, 12/30/23 14:47:00 EDT, Weight Dosing Start Date: 12/30/23 Status: Ordered amphetamine aspartate 5 mg / amphetamine sulfate 5 mg / dextroamphetamine saccharate 5 mg / dextroamphetamine sulfate 5 mg oral tablet (3 sources) Central Nervous System Stimulant take 1 tablet by mouth in the morning amphetamine-dextroamphetamine (Adderall) 20 MG tablet Take 20 mg by mouth in the morning and 20 mg before bedtime. Active apixaban 5 mg oral tablet (16 sources) Factor Xa Inhibitor Start : 10-15 take 1 tablet by mouth every twelve hours Eliquis 5 mg tablet Take 1 tablet (5 mg) by mouth every 12 hours. 10/16/2023 Active Start: 08-15-2023 take 1 tablet by sabrina th twice daily Eliquis 5 mg oral tablet 5 mg = 1 tab(s), Oral, BID, # 180 tab(s), Refills(s) 1, Pharmacy: [facility]/pharmacy #[id number], 178, cm, 08/11/23 14:57:00 EDT, Height/Length Dosing, 99, kg, 08/11/23 14:57:00 EDT, Weight Dosing Start Date: 08/15/23 Status: Ordered Start: 05-05-2023 take 1 tablet by sabrina twice daily Eliquis 5 mg oral tablet 5 mg = 1 tab(s), Oral, BID, # 60 tab(s), Refills(s) 3, Pharmacy: [facility]/pharmacy #[id number], 178, cm, 05/02/23 13:12:00 EST, Height/Length Dosing, 102, kg, 05/02/23 13:12:00 EST, Weight Dosing Start Date: 05/05/23 Status: Ordered ARIPiprazole 10 mg oral tablet (3 sources) Atypical Antipsychotic Start: 11-13-2023 take 1 tablet by mouth at bedtime ARIPiprazole (Abilify) 10 MG tablet Take 10 mg by mouth at bedtime 11/13/2023 Active aspirin 81 mg chewable tablet (6 sources) Platelet Aggregation Inhibitor, Nonsteroidal Anti-inflammatory Drug Start: 03-20-2023 aspirin 81 MG chewable tablet Chew 81 mg 03/20/2023 Active atorvastatin 40 mg oral tablet (13 sources) HMG-CoA Reductase Inhibitor Start: 07-28-2023 take 1 tablet by mouth once daily Lipitor 40 MG tablet Take 40 mg by mouth Daily 07/28/2023 Active busPIRone hydrochloride 5 mg oral tablet (8 sources) Start: 11-12-2023 take 1 tablet by mouth in the morning, then take 1 tablet by mouth in the evening, then take 1 tablet by mouth at bedtime busPIRone (Buspar) 5 MG tablet Take 5 mg by mouth in the morning and 5 mg in the evening and 5 mg before bedtime. 11/12/2023 Active Start: 11-12-2023 take 1 tablet by sabrina th three times daily busPIRone 5 mg Tab TAKE 1 TABLET ORALLY THREE TIMES DAILY FOR 30 DAYS Start Date: 12/30/23 Status: Ordered Start: 06-11-2021 Buspirone Acti ve 10 MG PO TWICE DAILY 60 June 11, 2021 9:04am start daily at HS x1 week then bid carvedilol 6.25 mg oral tablet (20 sources) alpha-Adrenergic Larry, beta-Adrenergic Larry Start: 08-11-2023 take 1 tablet by mouth twice daily Coreg 6.25 mg Tab 6.25 mg = 1 tab(s), Oral, BID, # 60 tab(s), Refills(s) 6, Pharmacy: [facility]/pharmacy #[id number], 178, cm, 08/11/23 14:57:00 EDT, Height/Length Dosing, 99, kg, 08/11/23 14:57:00 EDT, Weight Dosing Start Date: 08/11/23 Status: Ordered Start: 07-28-2023 take 1 tablet by sabrina every twelve hours carvedilol (Coreg) 3.125 mg tablet Take 1 tablet (3.125 mg) by mouth every 12 hours. 07/28/2023 Active Start: 05-05-2023 take 1 tablet by sabrina twice daily carvedilol 3.125 mg Tab 3.125 mg = 1 tab(s), Oral, BID, # 60 tab(s), Refills(s) 3, Pharmacy: [facility]/pharmacy #[id number], 178, cm, 05/02/23 13:12:00 EST, Height/Length Dosing, 102, kg, 05/02/23 13:12:00 EST, Weight Dosing Start Date: 05/05/23 Status: Ordered Start: 05-05-2023 take 1 tablet by sabrina twice daily carvedilol 3.125 mg Tab 3.125 mg = 1 tab(s), Oral, BID, # 60 tab(s), Refills(s) 3, Pharmacy: [facility]/pharmacy #[id number], 178, cm, 05/02/23 13:12:00 EST, Height/Length Dosing, 102, kg, 05/02/23 13:12:00 EST, Weight Dosing Start Date: 05/05/23 Status: Ordered dronedarone 400 mg oral tablet (1 source) Antiarrhythmic Start: 12-26-2023 take 1 tablet by mouth twice daily dronedarone (Multaq) 400 mg tablet Indications: Atrial fibrillation, unspecified type (Multi) Take 1 tablet (400 mg) by mouth 2 times a day. 60 tablet 3 12/26/2023 Active Start: 12-26-2023 take 1 tablet by sabrina th twice daily dronedarone (Multaq) 400 mg tablet Indications: Atrial fibrillation, unspecified type (Multi) Take 1 tablet (400 mg) by mouth 2 times a day. 60 tablet 3 12/26/2023 Active DULoxetine 30 mg delayed release oral capsule (3 sources) Serotonin and Norepinephrine Reuptake Inhibitor Start: 04-22-2023 take 1 capsule by mouth once daily DULoxetine (Cymbalta) [address] capsule Take 30 mg by mouth Daily 04/22/2023 Active FLUoxetine 20 mg oral capsule (7 sources) Serotonin Reuptake Inhibitor Start: 11-27-2023 take 1 capsule by mouth in the morning FLUoxetine (PROzac) 20 MG capsule Take 20 mg by mouth in the morning. 11/27/2023 Active Start: 08-22-2020 End: 02-12-2021 take 1 capsule by mouth once daily Fluoxetine (Prozac) 10 mg capsule Discontinued 10 MG PO DAILY August 22, 2020 9:15am February 12, 2021 8:50am gabapentin 100 mg oral capsule (6 sources) Anti-epileptic Agent Start: 03-20-2023 End: 01-07-2024 gabapentin (Neurontin) 100 MG capsule Refills(s) 0 03/20/2023 01/07/2024 Discontinued (Side effects) losartan potassium 50 mg oral tablet (6 sources) Angiotensin 2 Receptor Larry Start: 05-30-2023 take 1 tablet by mouth once daily losartan (Cozaar) 50 MG tablet Take 50 mg by mouth Daily 05/30/2023 Active Start: 05-05-2023 take 1 tablet by sabrina th once daily losartan 25 mg Tab 25 mg = 1 tab(s), Oral, Daily, # 30 tab(s), Refills(s) 3, Pharmacy: [facility]/pharmacy #[id number], 178, cm, 05/02/23 13:12:00 EST, Height/Length Dosing, 102, kg, 05/02/23 13:12:00 EST, Weight Dosing Start Date: 05/05/23 Status: Ordered Methocarbamol (3 sources) Muscle Relaxant Methocarbamol (ROBAXIN IJ) Active metoprolol tartrate 25 mg oral tablet (6 sources) beta-Adrenergic Larry Start: 03-20-20 metoprolol tartrate (Lopressor) 25 MG tablet Take 25 mg by mouth 03/20/2023 Active nicotine 2 mg chewing gum (2 sources) Cholinergic Nicotinic Agonist Start: 11-12-19 Nicotine (Polacrilex) Active 2 MG BUCCAL Q2H November 12, 2023 12:00am [place] (No Known Home Meds) (1 source) Start: 03-12-20 [place] (No Known Home Meds) Active 0 March 12, 2021 8:12am oxyCODONE (3 sources) Opioid Agonist oxyCODONE HCl (ROXICODONE PO) Active Polyethylene Glycols (3 sources) POLYETHYLENE GLY COL 3350 PO Active polymyxin b 36267 unt/ml / trimethoprim 1 mg/ml ophthalmic solution (1 source) Dihydrofolate Reductase Inhibitor Antibacterial, Polymyxin-class Antibacterial Start: 12-24-19 Polymyxin B Sulf-Trimethoprim Active 1 DROPS OPHTHALMIC Every three hours 12 28December 24, 2023 12:00am while awake; do not exceed 6 doses in 24 hours pregabalin 25 mg oral capsule (2 sources) Start: 01-07-20 End: 03-07-20 take 1 capsule by mouth in the morning, then take 1 capsule by mouth in the evening, then take 1 capsule by mouth at bedtime pregabalin (Lyrica) 25 MG capsule Indications: Lumbar radiculopathy Take 1 capsule (25 mg) by mouth in the morning and 1 capsule (25 mg) in the evening and 1 capsule (25 mg) before bedtime. 90 capsule 1 01/07/2024 03/07/2024 Active sacubitril 24 mg / valsartan 26 mg oral tablet (14 sources) Angiotensin 2 Receptor Larry Start: 10-17-19 take 1 tablet by mouth every twelve hours Entresto 24-26 mg tablet Take 1 tablet by mouth every 12 hours. 2023 Active Start: 06-14-2023 Entresto 24 mg -26 mg oral tablet 1 tab(s), Oral, BID, 60 tab(s), Refill(s) 6, [facility]/pharmacy #[id number], 178, cm, 05/30/23 15:00:00 EST, Height/Length Dosing, 101.3, kg, 05/30/23 15:00:00 EST, Weight Dosing Start Date: 06/14/23 Status: Ordered sacubitril-valsa rtan (Entresto) 24-26 MG tablet Take 1 tablet by mouth in the morning and 1 tablet before bedtime. 1 TABLET . Active sertraline 50 mg oral tablet (8 sources) Serotonin Reuptake Inhibitor Start: 11-06-2023 take 1 tablet by mouth once daily sertraline (Zoloft) 50 MG tablet Take 50 mg by mouth Daily 11/06/2023 Active Start: 02-12-2021 End: 03-12-2021 take 50 mg by mouth once daily Sertraline Discontinued 50 MG PO daily February 12, 2021 9:45am March 12, 2021 9:01am spironolactone 25 mg oral tablet (4 sources) Aldosterone Antagonist Start: 05-30-2023 take 1 tablet by mouth once daily spironolactone 25 mg Tab 25 mg = 1 tab(s), Oral, Daily, # 30 tab(s), Refills(s) 6, Pharmacy: [facility]/pharmacy #[id number], 178, cm, 05/30/23 15:00:00 EST, Height/Length [...] 03, 2020 11:00am August 22, 2020 9:15am Problems Active Problems Problem Classification Problem Date Documented Date Episodic/Chronic Administrative/social admission (6 sources) First encounter by subject; Translations: [Persons encountering health services in other specified circumstances] Onset: 12-26-2023 12-26-2023 Episodic Anxiety disorders (20 sources) Posttraumatic stress disorder; Translations: [Post-traumatic stress disorder, unspecified] Onset: 02-12-2021 Chronic Asthma (18 sources) Exacerbation of mild persistent asthma; Translations: [Mild persistent asthma with (acute) exacerbation] Chronic Attention-deficit, conduct, and disruptive behavior disorders (1 source) Attention deficit hyperactivity disorder; Translations: [Attention-deficit hyperactivity disorder, unspecified type] 12-24-2023 Chronic Blindness and vision defects (2 sources) Blurring of visual image; Translations: [Other visual disturbances] 01-06-2024 Episodic Cardiac dysrhythmias (20 sources) Atrial fibrillation; Translations: [Unspecified atrial fibrillation] Onset: 07-07-2023 05-08-2023 Chronic Coronary atherosclerosis and other heart disease (2 sources) Coronary atherosclerosis; Translations: [Atherosclerotic heart disease of crow coronary artery without angina pectoris] Onset: 08-11-2023 [...] left eye] 12-24-2023 Episodic Malaise and fatigue (7 sources) Fatigue; Translations: [Other fatigue] Onset: 10-07-2023 [...] in leg, unspecified] Onset: 11-28-2021 Episodic Other connective tissue disease (2 sources) Other symptoms and signs involving the musculoskeletal system; Translations: [Other musculoskeletal symptoms referable to limbs] 01-06-2024 Episodic Other connective tissue disease (2 sources) Increased muscle tone; Translations: [Other specified disorders of muscle] 01-06-2024 Episodic Other ear and sense organ disorders (3 sources) Sensorineural hearing loss, bilateral; Translations: [Sensorineural hearing loss, bilateral] Chronic Other ear and sense organ disorders (3 sources) Tinnitus; Translations: [Tinnitus, unspecified ear] Episodic Other ear and sense organ disorders (1 source) Impacted cerumen, bilateral Episodic Other lower respiratory disease (4 sources) Shortness of breath; Translations: [Shortness of breath] Onset: 12-26-2023 Episodic Other lower respiratory disease (2 sources) Dyspnea on exertion; Translations: [Shortness of breath] Onset: 12-26-2023 12-26-2023 Episodic Other nervous system disorders (3 sources) Bilateral carpal tunnel syndrome; Translations: [Carpal tunnel syndrome, bilateral upper limbs] Onset: 07-07-2023 07-07-2023 Chronic Other nervous system disorders (2 sources) Impaired cognition; Translations: [Other symptoms and signs involving cognitive functions and awareness] 01-06-2024 Episodic Other non-traumatic joint disorders (3 sources) [...] [Body Mass Index 25.0-25.9, adult] Episodic Other nutritional; endocrine; and metabolic disorders (2 sources) Overweight in adulthood with body mass index of 25 or more but less than 30; Translations: [Body mass index (BMI) 26.0-26.9, adult] Onset: 12-26-2023 12-26-2023 Episodic Other upper respiratory disease (3 sources) Deviated nasal septum; Translations: [Deviated nasal septum] Episodic [place]elita-; endo-; and myocarditis; cardiomyopathy (except that caused by tuberculosis or sexually transmitted disease) (3 sources) Cardiomyopathy; Translations: [Other cardiomyopathies] Onset: 08-11-2023 [...] between 19-24, adult] Episodic Residual codes; unclassified (13 sources) Memory impairment 03-20-2023 Episodic Skin and subcutaneous tissue infections (2 sources) Cellulitis of right lower limb; Translations: [Cellulitis of right lower limb] Onset: 12-03-2021 Episodic Spondylosis; intervertebral disc disorders; other back problems (3 sources) Degeneration of cervical intervertebral disc; Translations: [Other cervical disc degeneration, unspecified cervical region] Onset: 07-07-2023 07-07-2023 Chronic Substance-related disorders (20 sources) Nicotine dependence; Translations: [Nicotine dependence, cigarettes, uncomplicated] Onset: 12-26-2023 Chronic Comment on above: Added secondary to d ocumentation in Social History. Suicide and intentional self-inflicted injury (9 sources) Suicidal thoughts; Translations: [Suicidal ideations] 11-06-2023 Episodic Systemic lupus erythematosus and connective tissue disorders (13 sources) Autoimmune disease 03-20-2023 Chronic Unclassified (7 [...] methicillin resistant Staphylococcus aureus] Onset: 04-28-2017 Episodic Other nervous system disorders (3 sources) Numbness and tingling sensation of skin; Translations: [Anesthesia of skin] Onset: 07-07-2023 07-07-2023 Episodic Other nervous system disorders (3 sources) Paresthesia; Translations: [Paresthesia of skin] Onset: 07-07-2023 07-07-2023 Episodic Spondylosis; intervertebral disc disorders; other back problems (12 sources) Radiculopathy, cervical region; Translations: [Spinal stenosis, [...] Facility Heart and Vascular Office/Cl inic Noteon 12-30-2023 Heart and Vascular Office/Clinic Note Heart and Vascular Office/Clinic Note Chief Complaint f/u after EP appt History of Present Illness The patient is a 53-year-old male with past cardiac history of mild to moderate CAD, diagnosed at the cardiac catheterization in 2023 in the context of new onset cardiomyopathy, history of paroxysmal atrial fibrillation with failed cardioversion, alcohol abuse, who presents today for scheduled appointment. He was seen by electrophysiology on 12/26/2019 for. A decision was made to start the patient on Multaq while awaiting scheduling for cryoablation PVI and hybrid therapy. Unfortunately, the patient's insurance did not cover it Review of Systems PHQ Score Initial Depression Screen Score: 0 SCORE ROS - Provider Constitutional: no fever, no [...] infections Physical Exam Vitals & Measurements HR: 91(Peripheral) RR: 16 BP: 136/84 SpO2: 99% HT: 70 in HT: 178 cm WT: 95.2 kg WT: 209.44 lb BMI: 30.05 General: alert, no acute distress Neck: Supple, [...] 1. Atrial fibrillation (I48.91: Unspecified atrial fibrillation) Highly symptomatic persistent atrial fibrillation. Will start amiodarone, at least for the time being. Monitoring tests will be ordered, as well. Continue Eliquis 2. Cardiomyopathy (I42.9: Cardiomyopathy, unspecified) Appears euvolemic by physical exam, on carvedilol, Entresto. Follow-up No qualifying data available 1 month Problem List/Past Medical History Ongoing Smoker Historical Anxiety Asthma Autoimmune disorder Hypertension Memory Issues Procedure/Surgical History Cardioversion (07/31/2023), Catheterization of left heart (05/08/2023), H/O splenectomy, Hip replacement, Lung. Medications albuterol busPIRone 5 mg Tab Coreg 6.25 mg Tab, 6.25 mg= 1 [...] within last 30 days Smokeless Tobacco Use:., 12/30/2023 Family History Heart disease: Father. Dara Marie [facility] Comment on above: Result Comment: Elec tronically Signed By: Antonia RUBIO, Tylor Potter\.br\Date and Time Signed: 12/30/23 15:02 EDT ECG 12 Leadon 12-26-2023 See scan [facility] Work Phone: [facility] Work Phone: Heart and Vascular Office/Cl inic Noteon 11-28-2023 [...] family reason. More recently, he was at [facility] for some rehabilitation in was advised to [...] 11/28/2023 Family History Heart disease: Father. Normal [facility] Comment on above: Result Comment: Elec tronically Signed By: Antonia RUBIO, Tylor Potter\.br\Date and Time Signed: 11/28/23 12:09 EDT Cholesterol [Mass/volume] in Serum or PlasmaOrdered By: Ronaldo Castro on 11-07-2023 Cholesterol [Mass/Vol] 110 mg/dL Low 140-200 [facility] Comment on above: Chol less than 200 m g/dl low riskChol 201-239 mg/dl borderline riskChol 240 mg/dl and greater high risk Result Comment: Chol less than 200 mg/dl low risk Chol 201-239 mg/dl borderline risk Chol 240 mg/dl and greater high risk Performed By: #### V [id number], LIPID, TSH3 [id number] #### [facility] [address] Cholesterol in LDL Calc [Mas s/Vol]Ordered By: Ronaldo Castro on 11-07-2023 Cholesterol in LDL [Mass/Vol] 61 mg/dL 0-100 [facility] Comment on above: LDL ATP III CLASSIFI CATIONLDL less than 100 mg/dL OptimalLDL 100-129 mg/dL Near or above optimalLDL 130-159 mg/dL Borderline highLDL 160-189 mg/dL HighLDL greater than 189 mg/dL Very high Cholesterol in VLDL Calc [Ma ss/Vol]Ordered By: Ronaldo Castro on 11-07-2023 Cholesterol in VLDL [Mass/Vol] 16 mg/dL [facility] ECG 12 lead ECGon 11-07-2023 ECG 12 lead ECG [facility] [address] [address] Electrocardiograph Report Signed Patient: Juan Carlos Noguera MR#: [id number] [birth year] : 1970 Acct:[id number] Age/Sex: 53 / M ADM Date: 11/06/23 Loc: 1S Room: [address] [place] [address] Type: ADM IN Attending Dr: Ronaldo Castro [...] in Inferior leads Confirmed by Salvador Lira ([id number]) on 11/07/2023 10:18:08 AM Referred By: Electronically Signed By: Salvador Lira Transcribed By: MUS Signed By Salvador Lira MD 11/07/23 1018 Normal [facility] ECG 12 lead ECG [facility] [address] [address] Electrocardiograph Report Signed Patient: Juan Carlos Noguera MR#: [id number] [birth year] : 1970 Acct:[id number] Age/Sex: 53 / M ADM Date: 11/06/23 Loc: 1S Room: [address] [place] [address] Type: ADM IN Attending Dr: Ronaldo Castro [...] previous ECGs available Confirmed by Salvador Lira ([id number]) on 11/07/2023 1:07:23 PM Referred By: Electronically Signed By: Salvador Lira Transcribed By: MUS Signed By Salvador Lira MD 11/07/23 1307 Normal [facility] Lipid Panelon 11-07-2023 LDL Cholesterol,Calculated 61 mg/dL Normal 0-100 [facility] Comment on above: Result Comment: LDL ATP III CLASSIFICATION LDL less than 100 mg/dL Optimal LDL 100-129 mg/dL Near or above optimal LDL 130-159 mg/dL Borderline high LDL 160-189 mg/dL High LDL greater than 189 mg/dL Very high Performed By: #### V [id number], LIPID, TSH3 wRFLX #### [address] Triglyceride w/Reflex 84 mg/dL Normal 0-149 [facility] Comment on above: Result Comment: TRIG ATP III CLASSIFICATION TRIG less than 150 mg/dL Normal TRIG 150-199 mg/dL Borderline high TRIG 200-500 mg/dL High TRIG greater than 500 mg/dL Very high Standard traceable to the Center for Disease Conrtrol and Prevention (CDC) test method. Performed By: #### V [id number], LIPID, TSH3 wRFLX #### [facility] [address] VLDL CHOLESTEROL 16 mg/dL Normal [facility] Comment on above: Performed By: #### V [id number], LIPID, TSH3 wRFLX #### [facility] [address] Serum or plasma high density lipoprotein (HDL) cholesterol measurementOrdered By: Ronaldo Castro on 11-07-2023 Cholesterol in HDL [Mass/Vol] 32 mg/dL Normal 23-92 [facility] Comment on above: HDL CHOL ATP-III CLA SSIFICATION Cardiovascular RiskHDL > or equal to 60 mg/dL LOWHDL < 40 mg/dL HIGH Result Comment: HDL CHOL ATP-III CLASSIFICATION Cardiovascular Risk HDL > or equal to 60 mg/dL LOW HDL < 40 mg/dL HIGH Performed By: #### V [id number], LIPID, TSH3 wRFLX #### [facility] [address] [place] [address] Serum or plasma total choles terol/high density lipoprotein (HDL) cholesterol mass ratOrdered By: Ronaldo Castro on 11-07-2023 Cholesterol.total/Barbara sterol in HDL [Mass ratio] 3.4 {ratio} Normal <5.0 [facility] Comment on above: Performed By: #### V [id number], LIPID, TSH3 wRFLX #### [facility] [address] [place] [address] Thyroid Stim Hormone w/Rflxo n 11-07-2023 Thyroid Stim Hormone w/Rflx 0.87 u[iU]/mL Normal 0.45-5.33 [facility] Comment on above: Performed By: #### V [id number], LIPID, TSH3 wRFLX #### [facility] [address] [place] [address] Thyrotropin [Units/volume] i n Serum or PlasmaOrdered By: Ronaldo Castro on 11-07-2023 TSH Qn 0.87 m[IU]/L 0.45-5.33 [facility] Triglyceride [Mass/volume] i n Serum or PlasmaOrdered By: Ronaldo Castro on 11-07-2023 Triglyceride [Mass/Vol] 84 mg/dL 0-149 [facility] Comment on above: TRIG ATP III CLASSIF ICATIONTRIG less than 150 mg/dL NormalTRIG 150-199 mg/dL Borderline highTRIG 200-500 mg/dL High TRIG greater than 500 mg/dL Very highStandard traceable to the Center for Disease Conrtrol and Prevention (CDC) test method. Vitamin D 25 Hydroxy Totalon 11-07-2023 Vitamin D 25 Hydroxy Total 28.2 ng/mL Low 30-100 [facility] Comment on above: Result Comment: ULISES MIN D STATUS 25(OH)VITAMIN D RANGE (ng/mL) Deficient <20 Insufficient 20 to <30 Sufficient 30 to 100 Reference: Savannah Villalobos, Sindi RAMACHANDRAN, et al. Evaluation,treatment, and prevention of vitamin D deficiency; an Endocrine Society clinical practice guideline. JCEM. 2010; 96(7):1911-. PERFORMED BY: [facility] [address] [place] [address] PATHOLOGIST BUFFING WHEEL OPERATOR DIMAS BUCKLEY M.D. Performed By: #### V [id number], LIPID, TSH3 wRFLX #### [facility] [address] [place] [address] [facility] Vitamin D+Metabolites [Mass/ volume] in Serum or PlasmaOrdered By: Ronaldo Castro on 11-07-2023 Vitamin D+Metabolites [Mass/Vol] 28.2 ng/mL Low 30-100 [facility] Comment on above: VITAMIN D STATUS 25( [place])VITAMIN D RANGE (ng/mL) Deficient <20 Insufficient 20 to <30Sufficient 30 to 100Reference: Savannah Villalobos, Sindi RAMACHANDRAN, et al. Evaluation,treatment, and prevention of vitamin D deficiency; an Endocrine Society clinical practice guideline. JCEM. 2010; 96(7):1911-30. Alanine aminotransferase [En zymatic activity/volume] in Serum or PlasmaOrdered By: Gem Mcintosh on 11-06-2023 ALT [Catalytic activity/Vol] 14 U/L Normal 7-52 [facility] Comment on above: Performed By: #### C MP, ETOH, CBC ####[facility] [id number] [place] [address] [place] Albumin [Mass/volume] in Ser um or Plasma by Bromocresol green (BCG) dye binding methoOrdered By: Gem Mcintosh on 11-06-2023 Albumin BCG dye [Mass/Vol] 4.3 g/dL 3.5-5.7 [facility] Alkaline phosphatase [Enzyma tic activity/volume] in Serum or PlasmaOrdered By: Gem Mcintosh on 11-06-2023 ALP [Catalytic activity/Vol] 61 U/L Normal 34-104 [facility] Comment on above: Performed By: #### C MP, ETOH, CBC ####[place] [id number] Amphetamine Screen Ql (U)Ord ered By: Gem Mcintosh on 11-06-2023 Amphetamines Ql (U) Negative Negative [facility] Aspartate aminotransferase [ Enzymatic activity/volume] in Serum or PlasmaOrdered By: Gem Mcintosh on 11-06-2023 AST [Catalytic activity/Vol] 15 U/L Normal 13-39 [facility] Comment on above: Performed By: #### C MP, ETOH, CBC ####[place] [id number] Automated basophil %Ordered By: Gem Mcintosh on 11-06-2023 Basophils/100 WBC (Bld) 1.2 % Normal . [facility] Comment on above: Performed By: #### C MP, ETOH, CBC ####[address] Automated basophil countOrde red By: Gem Mcintosh on 11-06-2023 Basophils (Bld) [#/Vol] 0.2 10*3/uL Normal 0.0-0.2 [facility] Comment on above: Result Comment: PERF ORMED BY: [facility] [address] [place] [address] PATHOLOGIST BUFFING WHEEL OPERATOR DIMAS BUCKLEY M.D. Performed By: #### C MP, ETOH, CBC ####[address] Automated blood monocyte cou ntOrdered By: Gem Mcintosh on 11-06-2023 Monocytes (Bld) [#/Vol] 1.3 10*3/uL High 0.0-0.8 [facility] Comment on above: Performed By: #### C MP, ETOH, CBC ####[place] [id number] Automated eosinophil %Ordere d By: Gem Mcintosh on 11-06-2023 Eosinophils/100 WBC (Bld) 1.2 % Normal . [facility] Comment on above: Performed By: #### C MP, ETOH, CBC ####[place] [id number] Automated eosinophil countOr dered By: Gem Mcintosh on 11-06-2023 Eosinophils (Bld) [#/Vol] 0.2 10*3/uL Normal 0.0-0.45 [facility] Comment on above: Performed By: #### C MP, ETOH, CBC ####[address] Automated epithelial cells c ount in urine sediment (number/area)Ordered By: Gem Mcintosh on 11-06-2023 Epithelial cells Auto (Urine sed) [#/Area] 1-2 [HPF] 0-2 [facility] Automated monocyte %Ordered By: Gem Mcintosh on 11-06-2023 Monocytes/100 WBC (Bld) 9.6 % Normal . [facility] Comment on above: Performed By: #### C MP, ETOH, CBC ####[address] Automated neutrophil %Ordere d By: Gem Mcintosh on 11-06-2023 Neutrophils/100 WBC (Bld) 66.4 % Normal . [facility] Comment on above: Performed By: #### C MP, ETOH, CBC ####[address] Bacteria [Presence] in Urine by AutomatedOrdered By: Gem Mcintosh on 11-06-2023 Bacteria Auto Ql (U) None seen [HPF] None Seen [facility] Barbiturates [Presence] in U rine by Screen methodOrdered By: Gem Mcintosh on 11-06-2023 Barbiturates Screen Ql (U) Negative Negative [facility] Benzodiazepines Screen Ql (U )Ordered By: Gem Mcintosh on 11-06-2023 Benzodiazepines Ql (U) Negative Negative [facility] Benzoylecgonine [Presence] i n Urine by Screen methodOrdered By: Gem Mcintosh on 11-06-2023 Benzoylecgonine Screen Ql (U) Negative Negative [facility] Bilirubin Test strip Ql (U)O rdered By: Gem Mcintosh on 11-06-2023 Bilirubin Ql (U) Negative Negative [facility] Bilirubin.total [Mass/volume ] in Serum or PlasmaOrdered By: Gem Mcintosh on 11-06-2023 Bilirubin [Mass/Vol] 0.6 mg/dL Normal 0.3-1.0 [facility] Comment on above: Performed By: #### C MP, ETOH, CBC ####[facility] [id number] [place] [id number] [facility] COVID CepheidOrdered By: Emigdio Mcintosh on 11-06-2023 SARS-CoV-2 (COVID-19) Ab IA Ql Negative Negative [facility] Comment on above: This is a duplicate Cepheid Xpert Xpress CoV-2/Flu/RSV Plus RNA by RT-PCR result to be used for statistical tracking purpose only. SARS-CoV-2 (COVID-19) RNA ARAVIND+probe Ql (Unsp spec) [facility] COVID-19 / Flu A/B / RSV [...] or Cepheid Disclaimer revoked sooner. PERFORMED BY: [facility] [address] [facility] [place] [id number] PATHOLOGIST BUFFING WHEEL OPERATOR DIMAS BUCKLEY M.D. Normal [facility] Comment on above: Performed By: #### C OVID19 FLU RSV, CEPHEID NEG ####[facility] [id number] [place] [address] [place] Calcium [Mass/volume] in Ser um or PlasmaOrdered By: Gem Mcintosh on 11-06-2023 Calcium [Mass/Vol] 9.0 mg/dL Normal 8.6-10.3 [facility] Comment on above: Performed By: #### C MP, ETOH, CBC ####[facility] [id number] [place] [address] [facility] Cannabinoids [Presence] in U rine by Screen methodOrdered By: Gem Mcintosh on 11-06-2023 Cannabinoids Screen Ql (U) Negative Negative [facility] Comment on above: These are unconfirme d results and should not be used for legal purposes. Drug Cut-Off Concentration: AMPH 1000 ng/mL WILLIAM 200 ng/mL SALIMA 200 ng/mL COCM 300 ng/mL OP 300 ng/mL PCP 25 ng/mL THC 20 ng/mL Carbon dioxide, total [Moles /volume] in Serum or PlasmaOrdered By: Gem Mcintosh on 11-06-2023 CO2 [Moles/Vol] 29.4 mmol/L Normal 21.0-31.0 [facility] Comment on above: Performed By: #### C MP, ETOH, CBC ####[place] [id number] Cepheid COVID PCR Negativeon 11-06-2023 SARS-CoV-2 (COVID-19) RNA ARAVIND+probe Ql (Unsp spec) Negative Normal Negative [facility] Comment on above: Result Comment: This is a duplicate Cepheid Xpert Xpress CoV-2/Flu/RSV Plus RNA by RT-PCR result to be used for statistical tracking purpose only. PERFORMED BY: [facility] [address] [place] [address] PATHOLOGIST BUFFING WHEEL OPERATOR DIMAS BUCKLEY M.D. Performed By: #### C OVID19 FLU RSV, CEPHEID NEG ####[address] Chloride [Moles/volume] in S seamus or PlasmaOrdered By: Gem Mcintosh on 11-06-2023 Chloride [Moles/Vol] 102 mmol/L Normal 98-107 [facility] Comment on above: Performed By: #### C MP, ETOH, CBC ####[address] Color of Urine by AutoOrdere d By: Gem Mcintosh on 11-06-2023 Color (U) Yellow Normal Yellow [facility] Comment on above: Order Comment: Name Collection Type:: Clean-Voided Midstream Performed By: #### U RDS, ADDONUAPLUS #### [facility] [address] Complete Blood Count Auto Di ffon 11-06-2023 Mean Corpuscular HGB Conc 33.8 g/dL Normal 32.5-35.6 [facility] Comment on above: Performed By: #### C MP, ETOH, CBC ####[address] Monocytes/100 WBC (Bld) 16.55 % Normal 0.00-20.00 [facility] Comment on above: Performed By: #### C MP, ETOH, CBC ####[address] NRBC% 0.1 /100{WBC} Normal 0-0.5 [facility] Comment on above: Performed By: #### C MP, ETOH, CBC ####[place] [id number] [facility] Comprehensive Metabolic Pane du 11-06-2023 Albumin [Mass/Vol] 4.3 g/dL Normal 3.5-5.7 [facility] Comment on above: Performed By: #### C MP, ETOH, CBC ####[address] Creatinine Clr Calc Pharmacy 99.02 Normal [facility] Comment on above: Result Comment: PERF ORMED BY: [facility] [address] [facility] [place] [address] PATHOLOGIST BUFFING WHEEL OPERATOR DIMAS BUCKLEY M.D. Performed By: #### C MP, ETOH, CBC ####[place] [id number] [facility] GFR/1.73 sq M.predicted MDRD (S/P/Bld) [Vol rate/Area] mL/min/{1.73_m2} Normal [facility] Comment on above: Performed By: #### C MP, ETOH, CBC ####[place] [id number] [facility] Creatinine [Mass/volume] in Serum or PlasmaOrdered By: Gem Mcintosh on 11-06-2023 Creatinine [Mass/Vol] 0.98 mg/dL Normal 0.70-1.30 [facility] Comment on above: Performed By: #### C MP, ETOH, CBC ####[place] [id number] [facility] Dipstick and Microscopicon 0 11-06-2023 Appearance (U) Clear Normal Clear The [facility] Comment on above: Order Comment: Name Collection Type:: Clean-Voided Midstream Performed By: #### U RDS, ADDONUAPLUS #### [facility] [address] [place] [address] [place] Bacteria,Urine None Seen Normal None Seen [facility] Comment on above: Order Comment: Name Collection Type:: Clean-Voided Midstream Performed By: #### U RDS, ADDONUAPLUS #### [address] Bilirubin,Urine Negative Normal Negative [facility] Comment on above: Order Comment: Name Collection Type:: Clean-Voided Midstream Performed By: #### U RDS, ADDONUAPLUS #### [address] Glucose Ql (U) Normal Normal Normal [facility] Comment on above: Order Comment: Name Collection Type:: Clean-Voided Midstream Performed By: #### U RDS, ADDONUAPLUS #### [place] [address] [place] Hyaline Casts,Urine 0-8 Normal 0-8 [facility] Comment on above: Order Comment: Name Collection Type:: Clean-Voided Midstream Result Comment: PERF ORMED BY: [place] [address] PATHOLOGIST BUFFING WHEEL OPERATOR DIMAS BUCKLEY M.D. Performed By: #### U RDS, ADDONUAPLUS #### [address] Ketones Ql (U) Trace High Negative The [facility] Comment on above: Order Comment: Name Collection Type:: Clean-Voided Midstream Performed By: #### U RDS, ADDONUAPLUS #### [address] Leukocyte esterase Test strip Ql (U) Negative Normal Negative [facility] Comment on above: Order Comment: Name Collection Type:: Clean-Voided Midstream Performed By: #### U RDS, ADDONUAPLUS #### [place] [address] [place] Nitrite,Urine Negative Normal Negative [facility] Comment on above: Order Comment: Name Collection Type:: Clean-Voided Midstream Performed By: #### U RDS, ADDONUAPLUS #### [address] Occult Blood,Urine Negative Normal Negative [facility] Comment on above: Order Comment: Name Collection Type:: Clean-Voided Midstream Result Comment: PERF ORMED BY: [place] [address] PATHOLOGIST BUFFING WHEEL OPERATOR DIMAS BUCKLEY M.D. Performed By: #### U RDS, ADDONUAPLUS #### [address] RBC,Urine 1-2 Normal 0-4 [facility] Comment on above: Order Comment: Name Collection Type:: Clean-Voided Midstream Performed By: #### U RDS, ADDONUAPLUS #### [place] [address] [place] Specificy [place],Urine 1.017 Normal 1.001-1.030 [facility] Comment on above: Order Comment: Name Collection Type:: Clean-Voided Midstream Performed By: #### U RDS, ADDONUAPLUS #### [address] Squamous Epithelial Cell,Urine 1-2 Normal 0-2 [facility] Comment on above: Order Comment: Name Collection Type:: Clean-Voided Midstream Performed By: #### U RDS, ADDONUAPLUS #### [address] Urobilinogen,Urine Normal Normal Normal [facility] Comment on above: Order Comment: Name Collection Type:: Clean-Voided Midstream Performed By: #### U RDS, ADDONUAPLUS #### [place] [address] [place] WBC,Urine 1-2 Normal 0-4 [facility] Comment on above: Order Comment: Name Collection Type:: Clean-Voided Midstream Performed By: #### U RDS, ADDONUAPLUS #### [address] Drug Screen,Urineon 11-06-19 24 Amphetamine Screen,Urine Negative Normal Negative [facility] Comment on above: Performed By: #### U RDS, ADDONUAPLUS #### [address] Barbiturate Screen,Urine Negative Normal Negative [facility] Comment on above: Performed By: #### U RDS, ADDONUAPLUS #### [address] Benzodiazepines Screen,Urine Negative Normal Negative [facility] Comment on above: Performed By: #### U RDS, ADDONUAPLUS #### [address] Cannabinoid Screen,Urine Negative Normal Negative [facility] Comment on above: Result Comment: Thes e are unconfirmed results and should not be used for legal purposes. Drug Cut-Off Concentration: AMPH 1000 ng/mL WILLIAM 200 ng/mL SALIMA 200 ng/mL COCM 300 ng/mL OP 300 ng/mL PCP 25 ng/mL THC 20 ng/mL PERFORMED BY: [place] [address] PATHOLOGIST BUFFING WHEEL OPERATOR DIMAS BUCKLEY M.D. Performed By: #### U RDS, ADDONUAPLUS #### [address] Cocaine Screen,Urine Negative Normal Negative [facility] Comment on above: Performed By: #### U RDS, ADDONUAPLUS #### [place] [address] [place] Opiate Screen,Urine Negative Normal Negative [facility] Comment on above: Performed By: #### U RDS, ADDONUAPLUS #### [address] Phencyclidine Screen,Urine Negative Normal Negative [facility] Comment on above: Performed By: #### U RDS, ADDONUAPLUS #### [address] Erythrocyte distribution wid th [Ratio] by Automated countOrdered By: Gem Mcintosh on 11-06-2023 Erythrocyte distribution width (RBC) [Ratio] 13.6 % Normal 12.0-14.8 [facility] Comment on above: Performed By: #### C MP, ETOH, CBC ####[place] [id number] [place] [address] [facility] Erythrocytes [#/area] in Uri ne sediment by Automated countOrdered By: Gem Mcintosh on 11-06-2023 RBC Auto (Urine sed) [#/Area] 1-2 [HPF] 0-4 [facility] Erythrocytes [#/volume] in B lood by Automated countOrdered By: Gem Mcintosh on 11-06-2023 RBC (Bld) [#/Vol] 4.61 10*6/uL Normal 3.90-5.60 [facility] Comment on above: Performed By: #### C MP, ETOH, CBC ####[place] [id number] [facility] Ethanol [Mass/volume] in Ser um or PlasmaOrdered By: Gem Mcintosh on 11-06-2023 Ethanol [Mass/Vol] mg/dL Normal [facility] Comment on above: Performed By: #### C MP, ETOH, CBC ####[address] [address] [facility] Ethanol [Mass/Vol] TNP [facility] Comment on above: Test not performed Ethyl Alcohol Profileon 10-22 Percent Ethanol Not performed Normal [facility] Comment on above: Result Comment: PERF ORMED BY: [facility] [address] [place] [address] PATHOLOGIST BUFFING WHEEL OPERATOR DIMAS BUCKLEY M.D. Performed By: #### C MP, ETOH, CBC ####[address] [address] [place] Glucose [Mass/volume] in Ser um or PlasmaOrdered By: Gem Mcintosh on 11-06-2023 Glucose [Mass/Vol] 101 mg/dL High 70-100 [facility] Comment on above: ADA recommended refe rence rangeRandom Glucose Reference Range is dependent on time and content of last meal. Glucose of more than 200 mg/dL in a nonstressed, ambulatory subject supports the diagnosis of Diabetes Mellitus. Result Comment: [place] Glucose Reference Range is dependent on time and content of last meal. Glucose of more than 200 mg/dL in a nonstressed, ambulatory subject supports the diagnosis of Diabetes Mellitus. ADA recommended reference range Performed By: #### C MP, ETOH, CBC ####[facility] [id number] [place] [id number] [facility] Hematocrit [Volume Fraction] of Blood by Automated countOrdered By: Gem Mcintosh on 11-06-2023 Hematocrit (Bld) [Volume fraction] 42.2 % Normal 38.8-50.0 [facility] Comment on above: Performed By: #### C MP, ETOH, CBC ####[facility] [place] [id number] [facility] Hemoglobin [Mass/volume] in BloodOrdered By: Gem Mcintosh on 11-06-2023 Hemoglobin (Bld) [Mass/Vol] 14.2 g/dL Normal 13.0-17.0 [facility] Comment on above: Performed By: #### C MP, ETOH, CBC ####[place] [id number] [facility] Ketones Auto test strip (U) [Mass/Vol]Ordered By: Gem Mcintosh on 11-06-2023 Ketones (U) [Mass/Vol] Trace High Negative [facility] - UrinalysisOrder ed By: Gem Mcintosh on 11-06-2023 Hyaline casts LM Ql (Urine sed) 0-8 [LPF] 0-8 [facility] Leukocytes [#/area] in Urine sediment by Automated countOrdered By: Gem Mcintosh on 11-06-2023 WBC Auto (Urine sed) [#/Area] 1-2 [HPF] 0-4 [facility] Leukocytes [#/volume] correc nicko for nucleated erythrocytes in Blood by Automated counOrdered By: Gem Mcintosh on 11-06-2023 WBC corrected for nucl RBC Auto (Bld) [#/Vol] 13.5 10*3/uL High 4.1-10.5 [facility] Leukocytes [#/volume] in Blo od by Automated countOrdered By: Gem Mcintosh on 11-06-2023 WBC (Bld) [#/Vol] 13.5 10*3/uL High 4.1-10.5 [facility] Comment on above: Performed By: #### C MP, ETOH, CBC ####[place] [id number] [place] [id number] [facility] Lymphocytes [#/volume] in Bl ood by Automated countOrdered By: Gem Mcintosh on 11-06-2023 Lymphocytes (Bld) [#/Vol] 2.9 10*3/uL Normal 1.00-4.8 [facility] Comment on above: Performed By: #### C MP, ETOH, CBC ####[place] [id number] Lymphocytes/100 leukocytes i n Blood by Automated countOrdered By: Gem Mcintosh on 11-06-2023 Lymphocytes/100 WBC (Bld) 21.6 % Normal . [facility] Comment on above: Performed By: #### C MP, ETOH, CBC ####[place] [id number] [facility] MCH [Entitic mass] by Automa nicko countOrdered By: Gem Mcintosh on 11-06-2023 MCH (RBC) [Entitic mass] 30.9 pg Normal 27.5-35.2 [facility] Comment on above: Performed By: #### C MP, ETOH, CBC ####[place] [id number] [facility] MCHC Auto (RBC) [Mass/Vol]Or dered By: Gem Mcintosh on 11-06-2023 MCHC (RBC) [Mass/Vol] 33.8 g/dL 32.5-35.6 [facility] MCV [Entitic volume] by Auto mated countOrdered By: Gem Mcintosh on 11-06-2023 MCV (RBC) [Entitic vol] 91.6 fL Normal 83.5-101 [facility] Comment on above: Performed By: #### C MP, ETOH, CBC ####[place] [id number] Monocyte distribution width [Entitic volume] in Blood by AutomatedOrdered By: Gem Mcintosh on 11-06-2023 Monocyte distribution width Auto (Bld) [Entitic vol] 16.55 % 0.00-20.00 [facility] Neutrophils [#/volume] in Bl ood by Automated countOrdered By: Gem Mcintosh on 11-06-2023 Neutrophils (Bld) [#/Vol] 9.0 10*3/uL High 1.8-7.7 [facility] Comment on above: Performed By: #### C MP, ETOH, CBC ####[address] Nitrite Test strip Ql (U)Ord ered By: Gem Mcintosh on 11-06-2023 Nitrite Ql (U) Negative Negative [facility] No Panel InformationOrdered By: Gem Mcintosh on 11-06-2023 Estimated GFR (CKD-EPI) > 60.0 mL/Min [facility] Creatinine Clearance (Chem 99.02 [facility] Nucleated erythrocytes [Pres ence] in Blood by Automated countOrdered By: Gem Mcintosh on 11-06-2023 Nucleated RBC Auto Ql (Bld) 0.1 /100{WBC} 0-0.5 [facility] Opiates [Presence] in Urine by Screen methodOrdered By: Gem Mcintosh on 11-06-2023 Opiates Screen Ql (U) Negative Negative [facility] Phencyclidine Screen Ql (U)O rdered By: Gem Mcintosh on 11-06-2023 Phencyclidine Ql (U) Negative Negative [facility] Platelet mean volume [Entiti c volume] in Blood by Automated countOrdered By: Gem Mcintosh on 11-06-2023 Platelet mean volume (Bld) [Entitic vol] 8.3 fL Normal 6.6-10.1 [facility] Comment on above: Performed By: #### C MP, ETOH, CBC ####[place] [id number] Platelets [#/volume] in Bloo d by Automated countOrdered By: Gem Mcintosh on 11-06-2023 Platelets (Bld) [#/Vol] 350 10*3/uL Normal 150-450 [facility] [facility] Comment on above: Performed By: #### C MP, ETOH, CBC ####[address] Potassium [Moles/volume] in Serum or PlasmaOrdered By: Gem Mcintosh on 11-06-2023 Potassium [Moles/Vol] 4.2 mmol/L Normal 3.5-5.1 [facility] Comment on above: Performed By: #### C MP, ETOH, CBC ####[address] Protein [Mass/volume] in Ser um or PlasmaOrdered By: Gem Mcintosh on 11-06-2023 Protein [Mass/Vol] 6.7 g/dL Normal 6.4-8.9 [facility] Comment on above: Performed By: #### C MP, ETOH, CBC ####[address] Serum globulin measurement b y calculation (mass/volume)Ordered By: Gem Mcintosh on 11-06-2023 Globulin (S) [Mass/Vol] 2.4 g/dL Normal [facility] Comment on above: Performed By: #### C MP, ETOH, CBC ####[address] Serum or plasma albumin/glob ulin mass ratioOrdered By: Gem Mcintosh on 11-06-2023 Albumin/Globulin [Mass ratio] 1.8 {ratio} Normal [facility] Comment on above: Performed By: #### C MP, ETOH, CBC ####[place] [id number] [facility] Serum or plasma anion gap de terminationOrdered By: Gem Mcintosh on 11-06-2023 Anion gap [Moles/Vol] 9.8 mmol/L Normal 6.0-15.0 [facility] Comment on above: Performed By: #### C MP, ETOH, CBC ####[place] [id number] [facility] Sodium [Moles/volume] in Ser um or PlasmaOrdered By: Gem Mcintosh on 11-06-2023 Sodium [Moles/Vol] 137 mmol/L Normal 136-145 [facility] Comment on above: Performed By: #### C MP, ETOH, CBC ####[facility] Guj[address] Specific gravity Auto test s trip (U) [Rel density]Ordered By: Gem Mcintosh on 11-06-2023 Specific gravity (U) [Rel density] 1.017 1.001-1.030 [facility] Urea nitrogen [Mass/volume] in Serum or PlasmaOrdered By: Gem Mcintosh on 11-06-2023 Urea nitrogen [Mass/Vol] 9 mg/dL Normal 7-25 [facility] Comment on above: Performed By: #### C MP, ETOH, CBC ####[facility] Urine clarity by refractomet ry automatedOrdered By: Gem Mcintosh on 11-06-2023 Clarity Refractometry automated (U) Clear Clear [facility] Urine glucose measurement by automated test strip (mass/volume)Ordered By: Gem Mcintosh on 11-06-2023 Glucose Auto test strip (U) [Mass/Vol] Normal mg/dL Normal [facility] Urine hemoglobin detection b y automated test stripOrdered By: Gem Mcintosh on 11-06-2023 Hemoglobin Auto test strip Ql (U) Negative Negative [facility] Urine leukocyte esterase det ection by automated test stripOrdered By: Gem Mcintosh on 11-06-2023 Leukocyte esterase Auto test strip Ql (U) Negative Negative [facility] Urine pH measurement by auto mated test stripOrdered By: Gem Mcintosh on 11-06-2023 pH (U) 6.0 [pH] Normal 5.0-9.0 [facility] Comment on above: Order Comment: Name Collection Type:: Clean-Voided Midstream Performed By: #### U RDS, ADDONUAPLUS #### [facility] [address] Urine protein measurement by automated test strip (mass/volume)Ordered By: Gem Mcintosh on 11-06-2023 Protein (U) [Mass/Vol] 30 mg/dL High Negative [facility] Comment on above: Order Comment: Name Collection Type:: Clean-Voided Midstream Performed By: #### U CIRO OMALLEY #### [facility] [address] Urobilinogen Auto test strip (U) [Mass/Vol]Ordered By: Gem Mcintosh on 11-06-2023 Urobilinogen (U) [Mass/Vol] Normal mg/dL Normal [facility] XR chest 2V*on 11-06-2023 XR chest 2V* [facility] [address] [place] [address] [place] [address] XRay Report Signed Patient: Juan Carlos Noguera MR#: [id number] : 1970 Acct:[id number] Age/Sex: 53 / M ADM Date: 11/06/23 Loc: ER Room: Type: [facility] ER Attending Dr: Copies to: Gem [...] Ophelia Parra M.D.11/06/2023 1:04 PM Dictation Location: [facility]- Transcribed By: KATRINA 11/06/23 1304 Dictated By: Ophelia Parra MD 11/06/23 1304 Signed By: 11/06/23 1304 Dara [facility] Heart and Vascular Office/Cl inic [...] exam. On Coreg, Entresto. 3. 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 Normal 13.0-39.0 [facility] Comment on above: Performed By: #### 5 7021-8, 93176-4, 32620-6 #### [facility] [address] MCH (RBC) [Entitic mass] 30.8 pg Normal 26.0-33.0 [facility] Comment on above: Performed By: #### 5 7021-8, 18814-9, 84275-0 #### [facility] [address] MCV (RBC) [Entitic vol] 93.5 fL Normal 81.0-98.0 [facility] Comment on above: Performed By: #### 5 7021-8, 65714-4, 48876-8 #### [facility] [address] MEAN CORPUSCULAR HGB CONC 33.0 g/dl Normal 31.0-35.0 [facility] Comment on above: Performed By: #### 5 7021-8, 35939-9, 32523-7 #### [facility] [address] [address] [facility] MONOCYTE ABSOLUTE COUNT 2.31 x10*3/uL High 0.0-1.0 [facility] Comment on above: Performed By: #### 5 7021-8, 46968-7, 65261-0 #### [facility] [address] [address] [facility] Monocytes/100 WBC (Bld) 10.1 % Normal 4.0-13.0 [facility] Comment on above: Performed By: #### 5 7021-8, 71453-3, 59399-7 #### [facility] [address] [address] [facility] NEUTROPHIL COUNT ABSOLUTE 14.27 x10*3/uL High 1.5-6.2 [facility] Comment on above: Performed By: #### 5 7021-8, 20319-9, 90854-6 #### [facility] [place] [address] [facility] Neutrophils/100 WBC (Bld) 62.2 % Normal 47.0-76.0 [facility] Comment on above: Performed By: #### 5 7021-8, 80816-1, 76991-8 #### [facility] [address] [address] [facility] NUCLEATED RBC ABSOLUTE COUNT 0.00 x10*3/uL Normal [facility] Comment on above: Performed By: #### 5 7021-8, 15507-0, 98453-7 #### [facility] [address] [address] [place] Nucleated RBC/100 WBC (Bld) [Ratio] 0.0 % Normal [facility] Comment on above: Performed By: #### 5 7021-8, 82415-9, 75444-6 #### [facility] [address] [address] [facility] PLATELET COUNT 430 x10*3/uL High 150-400 [facility] Comment on above: Performed By: #### 5 7021-8, 61694-2, 09945-8 #### [facility] [address] [address] Platelet mean volume (Bld) [Entitic vol] 10.6 fL Normal 9.0-12.1 [facility] Comment on above: Performed By: #### 5 7021-8, 56719-0, 44554-6 #### [facility] [address] RED BLOOD COUNT 4.74 x10*6/uL Normal 3.8-6.0 [facility] Comment on above: Performed By: #### 5 7021-8, 56785-1, 45153-4 #### [facility] [address] RED CELL DISTRIBUTION WIDTH 46.0 fL Normal 36.7-49.4 [facility] Comment on above: Performed By: #### 5 7021-8, 62034-8, 45732-6 #### [facility] [address] WHITE BLOOD COUNT 22.93 X10*3/uL High 3.8-11.0 [facility] Comment on above: Performed By: #### 5 7021-8, 22172-7, 98859-3 #### [facility] [address] Differential panel (Body fld )on 12-18-2021 BANDS 2 % High 0-1 [facility] Comment on above: Performed By: #### 5 7021-8, 35672-2, 87984-1 #### [facility] [address] [address] [place] Basophils/100 WBC (Bld) 0 % Normal 0-1 [facility] Comment on above: Performed By: #### 5 7021-8, 06626-2, 42756-5 #### [facility] [place] [address] [facility] Eosinophils/100 WBC (Bld) 1 % Normal 0-6 [facility] Comment on above: Performed By: #### 5 7021-8, 33298-1, 77370-3 #### [facility] [address] [address] [place] Lymphocytes/100 WBC (Bld) 25 % Low 38-46 [facility] Comment on above: Performed By: #### 5 7021-8, 99119-5, 59499-3 #### [facility] [address] [address] [facility] Monocytes/100 WBC (Bld) 4 % Normal 2-10 [facility] Comment on above: Performed By: #### 5 7021-8, 02491-5, 10401-6 #### [facility] [address] [address] [place] Neutrophils/100 WBC (Bld) 62 % Normal 47-76 [facility] Comment on above: Performed By: #### 5 7021-8, 88538-6, 09453-1 #### [facility] [address] [address] [facility] Variant lymphocytes/100 WBC (Bld) 6 % Normal [facility] Comment on above: Performed By: #### 5 7021-8, 79678-5, 45470-3 #### [facility] [address] [address] [facility] Pathologist review of result son 12-18-2021 Pathologist review Armando (Unsp spec) [Interp] SEE COMMENT Normal [facility] Comment on above: Result Comment: Lymp hocytosis noted, favor reactive. If persistent, further investigation with flow cytometric analysis of peripheral blood is suggested for lymphocyte phenotyping in order to exclude a lymphoproliferative neoplasm. Reviewed by Dr. Kumar Performed By: #### 5 7021-8, 94937-1, 28245-1 #### [facility] [address] [address] [place] Urate [Mass/Vol]on 2 CNET-Uric Acid #URIC 6.7 MG/DL Normal 4.0-8.0 [facility] Comment on above: Result Comment: (NOT E) THERAPEUTIC TARGET FOR PATIENTS WITH GOUT: <6.0 TESTING PERFORMED BY: [facility] [address] [place] [address], CLIA [id number] Shelley SALGADO Performed By: #### 3 084-1 #### [facility] , Urate [Mass/volume] in Serum or Plasmaon 12-18-2021 Urate [Mass/Vol] Normal 3.8-7.1 [facility] Comment on above: Result Comment: SENT TO REFERENCE LAB DUE TO SUPPLY CHAIN ISSUES. ANOTHER TEST FOR SAME ANAYLTE WILL BE ORDERED AND RESULTED IN [facility]. Performed By: #### 5 7021-8, 63053-3, 65969-5 #### [facility] [address] AMB Office Visit Internal Me don 12-12-2021 AMB Office Visit Internal Med [place] [address] Medical Records Department AMB Office Visit Internal Med Name: JUAN CARLOS NOGUERA Sr. Pt Type: DEP AMB MR #: [id number] Room AND Bed: Date of : 1970 Date of Service: 12/12/21 Age: 51 Ordering Doctor: Sex: Male Family Doctor: Marie Mckenzie CNP Order #: Dictating Doctor: Marie Mckenzie CNP Admit Date: Referring Doctor: Other Doctor: Additional Copies: Marie Mckenzie HANDBAG FRAMES INSPECTOR === Chief Complaint Chief Complaint: * Patient [...] Applicable Physician History Physician Specialist Physician: Oswaldo Bnoilla [facility] Medical History Anxiety disorder History of traumatic [...] 101 H (more content not included)... Normal [facility] Ambulatory Ankle Righton 12-04-2021 Ankle Right [place] [address] Diagnostic Imaging Radiology Report Name: JUAN CARLOS NOGUERA Sr. Pt Type: DEP OUT MR #: [id number] Room & Bed: Date of : 1970 Date of Service: 12/03/21 Age: 51 Ordering Doctor: Marie Mckenzie CNP Sex: Male Family Doctor: Marie Mckenzie CNP Order #: [id number] Dictating Doctor: Anthony Rangel MD Admit Date: [...] are not the intended recipient, please contact [facility] at [phone] and destroy all copies of the original. Normal [facility] Leg Lower Right 2 vwson 11-22 Leg Lower Right 2 vws [place] [address] [place], [place] [address] Diagnostic Imaging Radiology Report Name: JUAN CARLOS NOGUERA Sr. Pt Type: DEP OUT MR #: [id number] Room & Bed: Date of : 1970 Date of Service: 12/03/21 Age: 51 Ordering Doctor: Marie Mckenzie CNP Sex: Male Family Doctor: Marie Mckenzie HANDBAG FRAMES INSPECTOR Order #: [id number] Dictating Doctor: Anthony Rangel MD Admit Date: [...] are not the intended recipient, please contact [facility] at [phone] and destroy all copies of the original. Normal [facility] AMB Office Visit Internal Me don 12-03-2021 AMB Office Visit Internal Med [address] [address] Medical Records Department AMB Office Visit Internal Med Name: JUAN CARLOS NOGUERA Sr. Pt Type: DEP AMB MR #: [id number] Room AND Bed: Date of : 1970 Date of Service: 12/03/21 Age: 51 Ordering Doctor: Sex: Male Family Doctor: Marie Mckenzie CNP Order #: Dictating Doctor: Marie Mckenzie CNP Admit Date: Referring Doctor: Other Doctor: Additional Copies: Marie Mckenzie HANDBAG FRAMES INSPECTOR === Chief Complaint Chief Complaint: Patient here [...] Physician History Physician Specialist Physician: Oswaldo Bonilla [facility] Medical History Anxiety disorder History of traumatic [...] (2) P (more content not included)... Normal [facility] Ambulatory AMB Office Visit Internal Me don 11-28-2021 AMB Office Visit Internal Med [place] [address] Medical Records Department AMB Office Visit Internal Med Name: JUAN CARLOS NOGUERA Sr. Pt Type: DEP AMB MR #: [id number] Room AND Bed: Date of : 1970 Date of Service: 11/28/21 Age: 51 Ordering Doctor: Sex: Male Family Doctor: Marie Mckenzie CNP Order #: Dictating Doctor: Marie Mckenzie CNP Admit Date: Referring Doctor: Other Doctor: Additional Copies: Marie Mckenzie HANDBAG FRAMES INSPECTOR === Chief Complaint Chief Complaint: Patient is [...] Physician History Physician Specialist Physician: Oswaldo Bonilla [facility] Medical History Anxiety disorder History of traumatic [...] BP 118/80 (more content not included)... Normal [facility] Ambulatory BASIC METABOLIC PANELon Anion gap [Moles/Vol] 11 mmol/L Normal 10-20 [facility] Comment on above: Performed By: #### M PB #### [facility] [address] [address] Calcium [Mass/Vol] 8.8 mg/dL Normal 8.7-10.5 [facility] Comment on above: Performed By: #### M PB #### [facility] [address] [address] Chloride [Moles/Vol] 105 mmol/L Normal 99-111 [facility] Comment on above: Performed By: #### M PB #### [facility] [place] [address] [facility] CO2 [Moles/Vol] 29 mmol/L Normal 21.0-32.0 [facility] Comment on above: Performed By: #### M PB #### [facility] [address] Creatinine [Mass/Vol] 0.8 mg/dL Normal 0.6-1.3 [facility] Comment on above: Performed By: #### M PB #### [place] [address] [place] GFR/1.73 sq M.predicted among non-blacks MDRD (S/P/Bld) [Vol rate/Area] 107 mL/min/{1.73_m2} Normal >59 [facility] Comment on above: Performed By: #### M PB #### [facility] [address] Glucose [Mass/Vol] 92 mg/dL Normal 70-100 [facility] Comment on above: Performed By: #### M PB #### [facility] [address] Potassium [Moles/Vol] 3.9 mmol/L Normal 3.5-5.0 [facility] Comment on above: Performed By: #### M PB #### [facility] [place] [address] [place] Sodium [Moles/Vol] 141 mmol/L Normal 137-147 [facility] Comment on above: Performed By: #### M PB #### [facility] [address] [address] [place] Urea nitrogen [Mass/Vol] 9 mg/dL Normal 7-22 [facility] Comment on above: Performed By: #### M PB #### [facility] [place] [address] [place] Urea nitrogen/Creatinine [Mass ratio] 11.3 mg/mg Normal 6-25 [facility] Comment on above: Performed By: #### M PB #### [facility] [address] CBC W Auto Differential pane l (Bld)on 11-23-2021 BASOPHIL ABSOLUTE COUNT 0.12 x10*3/uL High 0.0-0.1 [facility] Comment on above: Performed By: #### 5 7021-8, 07905-4, 11330-5 #### [facility] [address] Basophils/100 WBC (Bld) 0.8 % Normal 0.0-1.1 [facility] Comment on above: Performed By: #### 5 7021-8, 26181-0, 66042-6 #### [facility] [address] EOS ABSOLUTE COUNT 0.50 x10*3/uL Normal 0.0-0.5 [facility] Comment on above: Performed By: #### 5 7021-8, 20382-2, 74373-7 #### [facility] [address] Eosinophils/100 WBC (Bld) 3.2 % Normal 0.0-6.0 [facility] Comment on above: Performed By: #### 5 7021-8, 17074-7, 62179-1 #### [facility] [address] Hematocrit (Bld) [Volume fraction] 37.8 % Normal 35.0-49.0 [facility] Comment on above: Performed By: #### 5 7021-8, 48681-1, 22137-0 #### [facility] [address] Hemoglobin (Bld) [Mass/Vol] 12.9 g/dL Normal 11.5-17.0 [facility] Comment on above: Performed By: #### 5 7021-8, 26103-9, 10685-3 #### [facility] [address] IMMATURE GRAN ABSOLUTE COUNT 0.04 x10*3/uL Normal 0.0-0.5 [facility] Comment on above: Performed By: #### 5 7021-8, 81460-4, 71196-7 #### [facility] [address] Immature granulocytes/100 WBC (Bld) 0.3 % Normal 0.0-2.99 [facility] Comment on above: Performed By: #### 5 7021-8, 60775-8, 23532-3 #### [facility] [address] LYMPHOCYTE ABSOLUTE COUNT 3.69 x10*3/uL High 0.5-3.2 [facility] Comment on above: Performed By: #### 5 7021-8, 75455-3, 84066-4 #### [facility] [address] Lymphocytes/100 WBC (Bld) 23.9 % Normal 13.0-39.0 [facility] Comment on above: Performed By: #### 5 7021-8, 21523-5, 51617-5 #### [facility] [address] MCH (RBC) [Entitic mass] 31.6 pg Normal 26.0-33.0 [facility] Comment on above: Performed By: #### 5 7021-8, 54493-8, 19472-1 #### [facility] [address] MCV (RBC) [Entitic vol] 92.6 fL Normal 81.0-98.0 [facility] Comment on above: Performed By: #### 5 7021-8, 83764-5, 13686-8 #### [facility] [address] MEAN CORPUSCULAR HGB CONC 34.1 g/dl Normal 31.0-35.0 [facility] Comment on above: Performed By: #### 5 7021-8, 71294-8, 02536-3 #### [facility] [address] MONOCYTE ABSOLUTE COUNT 2.05 x10*3/uL High 0.0-1.0 [facility] Comment on above: Performed By: #### 5 7021-8, 09410-1, 85910-8 #### [facility] [address] Monocytes/100 WBC (Bld) 13.3 % High 4.0-13.0 [facility] Comment on above: Performed By: #### 5 7021-8, 27961-6, 22639-3 #### [facility] [address] NEUTROPHIL COUNT ABSOLUTE 9.01 x10*3/uL High 1.5-6.2 [facility] Comment on above: Performed By: #### 5 70-8, 41105-2, 42664-9 #### [facility] [address] Neutrophils/100 WBC (Bld) 58.5 % Normal 47.0-76.0 [facility] Comment on above: Performed By: #### 5 7021-8, 80802-2, 11639-5 #### [facility] [address] NUCLEATED RBC ABSOLUTE COUNT 0.00 x10*3/uL Normal [facility] Comment on above: Performed By: #### 5 7021-8, 21002-2, 69203-0 #### [facility] [address] Nucleated RBC/100 WBC (Bld) [Ratio] 0.0 % Normal [facility] Comment on above: Performed By: #### 5 7021-8, 90849-0, 67055-1 #### [facility] [address] PLATELET COUNT 427 x10*3/uL High 150-400 [facility] Comment on above: Performed By: #### 5 7021-8, 38757-2, 17441-2 #### [facility] [address] Platelet mean volume (Bld) [Entitic vol] 9.0 fL Normal 9.0-12.1 [facility] Comment on above: Performed By: #### 5 7021-8, 01512-6, 16725-3 #### [facility] [address] [address] [facility] RED BLOOD COUNT 4.08 x10*6/uL Normal 3.8-6.0 [facility] Comment on above: Performed By: #### 5 7021-8, 80813-0, 73768-6 #### [facility] [address] [address] [facility] RED CELL DISTRIBUTION WIDTH 46.7 fL Normal 36.7-49.4 [facility] Comment on above: Performed By: #### 5 7021-8, 78236-9, 27921-7 #### [facility] [address] [address] [facility] WHITE BLOOD COUNT 15.41 X10*3/uL High 3.8-11.0 [facility] Comment on above: Performed By: #### 5 7021-8, 23060-1, 48714-1 #### [facility] [address] [address] [facility] Differential panel (Body fld )on 11-23-2021 BANDS 0 % Normal 0-1 [facility] Comment on above: Performed By: #### 5 7021-8, 51764-8, 41735-9 #### [facility] [address] [address] [place] Basophils/100 WBC (Bld) 0 % Normal 0-1 [facility] Comment on above: Performed By: #### 5 7021-8, 93804-2, 32030-7 #### [facility] [address] [address] [place] Eosinophils/100 WBC (Bld) 3 % Normal 0-6 [facility] Comment on above: Performed By: #### 5 7021-8, 34604-7, 01923-1 #### [facility] [address] [address] [place] Lymphocytes/100 WBC (Bld) 24 % Low 38-46 [facility] Comment on above: Performed By: #### 5 7021-8, 67027-5, 97008-5 #### [facility] [address] [address] [place] Monocytes/100 WBC (Bld) 7 % Normal 2-10 [facility] Comment on above: Performed By: #### 5 7021-8, 92182-4, 87703-9 #### [facility] [address] [address] [facility] MYELOCYTE 1 % Normal [facility] Comment on above: Performed By: #### 5 7021-8, 43375-5, 00648-5 #### [facility] [address] [address] [facility] Neutrophils/100 WBC (Bld) 62 % Normal 47-76 [facility] Comment on above: Performed By: #### 5 7021-8, 72215-2, 05556-5 #### CLINICAL LABORATORY [address] [address] [facility] Variant lymphocytes/100 WBC (Bld) 3 % Normal [facility] Comment on above: Performed By: #### 5 7021-8, 99959-7, 32954-6 #### CLINICAL LABORATORY [address] Pathologist review of result son 11-23-2021 Pathologist review Armando (Unsp spec) [Interp] * Normal [facility] Comment on above: Result Comment: Niurka e with reported results. Reviewed by ALP Performed By: #### 5 7021-8, 04674-2, 68149-9 #### CLINICAL LABORATORY [address] Physician Documentationon Physician Documentation [place] [address] Medical Records Department ED Physician Documentation Name: JUAN CARLOS NOGUERA Sr. Pt Type: DEP ER MR #: [id number] Room AND Bed: Date of : 1970 Date of Service: 11/23/21 Age: 51 Ordering Doctor: Sex: Male Family Doctor: Marie Mckenzie HANDBAG FRAMES INSPECTOR Order #: Dictating Doctor: Florinda Guillory CNP [...] Blood Pres (more content not included)... Normal [facility] US Venous Duplex Uni Leg RTo n 11-23-2021 US Venous Duplex Uni Leg RT [address] [address] Diagnostic Imaging Ultrasound Report Name: JUAN CARLOS NOGUERA Sr. Pt Type: REG ER MR #: [id number] Room & Bed: Date of : 1970 Date of Service: 11/23/21 Age: 51 Ordering Doctor: Florinda Guillory CNP Sex: Male Family Doctor: Marie Mckenzie HANDBAG FRAMES INSPECTOR Order #: [id number] Dictating Doctor: Abisai Mchugh MD Admit Date: [...] are not the intended recipient, please contact [facility] at [phone] and destroy all copies of the original. Normal [facility] AMB Office Visit Internal Me don 10-08-2021 AMB Office Visit Internal Med [place] [address] Medical Records Department AMB Office Visit Internal Med Name: JUAN CARLOS NOGUERA Pt Type: DEP AMB MR #: [id number] Room AND Bed: Date of : 1970 [...] and colleagues, with an educational damian from [employer]. COVID-19 Patient Screening COVID-19 Screening Contact with COVID positive or high risk person(s): No COVID-19 Symptoms: No Physician History Physician Specialist Physician: Oswaldo Bonilla [facility] Medical History Anxiety disorder History of traumatic [...] concentrating, Denie (more content not included)... Normal [facility] Ambulatory AMB Office Visit Internal Me don 09-10-2021 AMB Office Visit Internal Med [address] [address] Medical Records Department AMB Office Visit Internal Med Name: JUAN CARLOS NOGUERA Pt Type: DEP AMB MR #: [id number] Room AND Bed: Date of : 1970 [...] associated with ADD. He also wonders about [place] [facility] program. Intake Intake Intake Have [...] and colleagues, with an educational damian from [employer]. COVID-19 Patient Screening COVID-19 Screening Contact with [...] Denies headache(s) (more content not included)... Normal [facility] Ambulatory AMB Office Visit Internal Me don 06-11-2021 AMB Office Visit Internal Med [place] [address] Medical Records Department AMB Office Visit Internal Med Name: JUAN CARLOS NOGUERA Pt Type: DEP AMB MR #: [id number] Room AND Bed: Date of : 1970 [...] and colleagues, with an educational damian from [employer]. COVID-19 Patient Screening COVID-19 Screening Contact with COVID positive or high risk person(s): No COVID-19 Symptoms: No Physician History Physician Specialist Physician: Oswaldo Bonilla [facility] Medical History Anxiety disorder History of traumatic [...] carbonated be (more content not included)... Normal [facility] Ambulatory AMB Office Visit Internal Me don 03-12-2021 AMB Office Visit Internal Med [place] [address] Medical Records Department AMB Office Visit Internal Med Name: JUAN CARLOS NOGUERA Pt Type: DEP AMB MR #: [id number] Room AND Bed: Date of : 1970 [...] Denies eas (more content not included)... Normal [facility] Ambulatory AMB Office Visit Internal Me don 02-12-2021 AMB Office Visit Internal Med [place] [id number] Medical Records Department AMB Office Visit Internal Med Name: JUAN CARLOS NOGUERA Pt Type: DEP AMB MR #: [id number] Room AND Bed: Date of : 1970 [...] TM's normal (more content not included)... Normal [facility] Ambulatory BASIC METABOLIC PANELon 04-24 Anion gap [Moles/Vol] 10 mmol/L Normal 5-15 [facility] Comment on above: Performed By: #### L [id number] #### [place] [address] BUN/CREAT RATIO 12 (CALC) Normal 7.0-25.0 [facility] Comment on above: Performed By: #### L [id number] #### [place] [address] Calcium [Mass/Vol] 8.0 mg/dL Low 8.5-10.5 [facility] Comment on above: Performed By: #### L AB119 #### [place] [address] Chloride [Moles/Vol] 105 mmol/L Normal 96-110 [facility] Comment on above: Performed By: #### L [id number] #### [place] [address] CO2 [Moles/Vol] 21 mmol/L Normal 19-32 [facility] Comment on above: Performed By: #### L AB119 #### [place] [address] Creatinine [Mass/Vol] 0.9 mg/dL Normal 0.5-1.4 [facility] Comment on above: Performed By: #### L AB119 #### [place] [address] ESTIMATED GFR 99 ML/MIN/1.73M2 Normal [facility] Comment on above: Result Comment: IF THE PATIENT IS , PLEASE MULTIPLY THIS BY 1.159. THIS RESULT HAS BEEN CALCULATED ASSUMING THE PATIENT IS NON- Performed By: #### L AB119 #### [place] [address] Glucose [Mass/Vol] 126 mg/dL High 70-99 [facility] Comment on above: Performed By: #### L AB119 #### [place] [address] Potassium [Moles/Vol] 4.5 mmol/L Normal 3.4-5.3 [facility] Comment on above: Performed By: #### L AB119 #### [place] [address] Sodium [Moles/Vol] 136 mmol/L Normal 135-148 [facility] Comment on above: Performed By: #### L AB119 #### [place] [address] Urea nitrogen [Mass/Vol] 11 mg/dL Normal 3-29 [facility] Comment on above: Performed By: #### L AB119 #### [place] [address] COMPLETE BLOOD COUNTon 05-09 Erythrocyte distribution width (RBC) [Ratio] 14.3 % Normal 9.0-15.0 [facility] Comment on above: Performed By: #### L AB119 #### [place] [address] Hematocrit (Bld) [Volume fraction] 34.8 % Low 41.0-50.0 [facility] Comment on above: Performed By: #### L AB119 #### [place] [address] Hemoglobin (Bld) [Mass/Vol] 11.9 g/dL Low 13.8-17.2 [facility] Comment on above: Performed By: #### L AB119 #### [place] [address] MCH (RBC) [Entitic mass] 30.4 pg Normal 27.0-33.0 [facility] Comment on above: Performed By: #### L AB119 #### [place] [address] MCHC (RBC) [Mass/Vol] 34.0 g/dL Normal 32.0-36.0 [facility] Comment on above: Performed By: #### L AB119 #### [place] [address] MCV (RBC) [Entitic vol] 89.4 fL Normal 80.0-100.0 M [facility] Comment on above: Performed By: #### L AB119 #### [place] [address] Platelets (Bld) [#/Vol] 168 10*3/uL Normal 130-400 [facility] Comment on above: Performed By: #### L AB119 #### [place] [address] RBC COUNT 3.90 M/MM3 Low 4.40-5.80 [facility] Comment on above: Performed By: #### L AB119 #### [place] [address] WBC (Bld) [#/Vol] 19.5 10*3/uL High 3.8-10.8 [facility] Comment on above: Performed By: #### L AB119 #### [place] [address] DRUG SCREEN, URINEon 021 AMPHETAMINE, URINE Not detected Normal [facility] Comment on above: Performed By: #### L AB119 #### [place] [address] BARBITURATES, URINE Not detected Normal [facility] Comment on above: Performed By: #### L AB119 #### [place] [address] BENZODIAZEPINE, URINE Positive Abnormal [facility] Comment on above: Performed By: #### L AB119 #### [place] [address] COCAINE, URINE Not detected Normal [facility] Comment on above: Performed By: #### L AB119 #### [address] COMMENT, URINE DRUG SCREEN Normal [facility] Comment on above: Result Comment: The [...] and/or metabolites are present. Test performed at [facility] [place], [place] Performed By: #### L AB119 #### [place] [address] OPIATES, URINE Not detected Normal [facility] Comment on above: Performed By: #### L AB119 #### [place] [address] THC Not detected Normal [facility] Comment on above: Performed By: #### L AB119 #### [place] [address] SARS COV 2 RNA, QL REAL TIME RT PCRon 05-09-2020 SARS-CoV-2 (COVID-19) RNA ARAVIND+probe Ql (Unsp spec) Not detected Normal NDET [facility] Comment on above: Result Comment: Refe rence Range = NOT DETECTED Performed By: #### L [id number] #### [place] [address] SARS-CoV-2 (COVID-19) RNA ARAVIND+probe Ql (Unsp spec) (NOTE) Normal [facility] Comment on above: Result Comment: The SARS CoV-2 RNA, Qualitative Real-Time RT-PCR test is a qualitative multi-target molecular diagnostic test that aids in the detection of COVID-19. This test has been authorized by the FDA under an Emergency Use Authorization (EUA) for use by authourized laboratories. Refer to www.cdc.gov for additional information about Coronavirus disease 2019. Performed By: #### L [id number] #### [place] [address] URINALYSISon 05-09-2020 Appearance (U) CLEAR Normal [facility] Comment on above: Performed By: #### L AB119 #### [place] [address] BACTERIA, URINE NONE SEEN Normal NS [facility] Comment on above: Performed By: #### L AB119 #### [place] [address] BILIRUBIN, URINE Negative Normal NEG [facility] Comment on above: Performed By: #### L AB119 #### [place] [address] BLOOD, URINE Negative Normal NEG [facility] Comment on above: Performed By: #### L AB119 #### [place] [address] Color (U) Normal [facility] Comment on above: Result Comment: YELL OW Reference Range: Yellow and Colorless Performed By: #### L AB119 #### [place] [address] Glucose Ql (U) Negative Normal NEG [facility] Comment on above: Performed By: #### L AB119 #### [place] [address] HYALINE CAST Normal U05 [facility] Comment on above: Result Comment: 0-5 REFERENCE RANGE: 0-5 HYALINE CASTS NONE SEEN FOR NON HYALINE CASTS Performed By: #### L AB119 #### [place] [address] KETONE, URINE Negative Normal NEG [facility] Comment on above: Performed By: #### L AB119 #### [place] [address] LEUKOCYTES, URINE Negative Normal NEG [facility] Comment on above: Performed By: #### L AB119 #### [place] [address] MUCUS, URINE PRESENT Normal [facility] Comment on above: Performed By: #### L AB119 #### [place] [address] NITRITES, URINE Negative Normal NEG [facility] Comment on above: Performed By: #### L AB119 #### [place] [address] pH (U) 6.0 [pH] Normal 4.5-8.0 [facility] Comment on above: Performed By: #### L AB119 #### [place] [address] Protein (U) [Mass/Vol] 10 mg/dL Abnormal NEG [facility] Comment on above: Performed By: #### L AB119 #### [place] [address] RBC, URINE 6-[address] [facility] Comment on above: Performed By: #### L AB119 #### [place] [address] RENAL EPITHELIAL CELLS, URINE 0-[address] [facility] Comment on above: Performed By: #### L AB119 #### [place] [address] SPECIFIC GRAVITY, URINE 1.040 High 1.005-1.030 [facility] Comment on above: Result Comment: Urin e specific gravity may be affected by X-ray dye, high glucose, high protein, and some chemotherapeutic drugs. Clinical correlation is recommended. Performed By: #### L AB119 #### [place] [address] SQUAMOUS EPITHEAL CELLS, URINE 0-[address] [facility] Comment on above: Performed By: #### L AB119 #### [place] [address] UROBILINOGEN, URINE <2 Normal <2 [facility] Comment on above: Performed By: #### L AB119 #### [place] [address] WBC, URINE 0-[address] [facility] Comment on above: Performed By: #### L AB119 #### [place] [address] ACTIVATED PARTIAL THROMBOPLA STIN TIMEon 05-08-2020 aPTT Coag (Bld) [Time] 26.0 s Normal 24.5-35.2 [facility] Comment on above: Performed By: #### L [id number] #### [place] [address] BASIC METABOLIC PANELon 04-24 Anion gap [Moles/Vol] 11 mmol/L Normal -15 [facility] Comment on above: Performed By: #### L [id number] #### [place] [address] BUN/CREAT RATIO 10 (CALC) Normal 7.0-25.0 [facility] Comment on above: Performed By: #### L AB064 #### [place] [address] Calcium [Mass/Vol] 7.4 mg/dL Low 8.5-10.5 [facility] Comment on above: Performed By: #### L AB064 #### [place] [address] Chloride [Moles/Vol] 103 mmol/L Normal 96-110 [facility] Comment on above: Performed By: #### L AB064 #### [place] [address] CO2 [Moles/Vol] 20 mmol/L Normal 19-32 [facility] Comment on above: Performed By: #### L AB064 #### [place] [address] Creatinine [Mass/Vol] 1.0 mg/dL Normal 0.5-1.4 [facility] Comment on above: Performed By: #### L AB064 #### [place] [address] ESTIMATED GFR 87 ML/MIN/1.73M2 Normal [facility] Comment on above: Result Comment: IF THE PATIENT IS , PLEASE MULTIPLY THIS BY 1.159. THIS RESULT HAS BEEN CALCULATED ASSUMING THE PATIENT IS NON- Performed By: #### L AB064 #### [place] [address] Glucose [Mass/Vol] 206 mg/dL High 70-99 [facility] Comment on above: Performed By: #### L AB064 #### [place] [address] Potassium [Moles/Vol] 4.8 mmol/L Normal 3.4-5.3 [facility] Comment on above: Result Comment: HEMO LYZED POTASSIUM RESULTS ARE ELEVATED BY SPECIMEN HEMOLYSIS Performed By: #### L AB064 #### [place] [address] Sodium [Moles/Vol] 134 mmol/L Low 135-148 [facility] Comment on above: Performed By: #### L AB064 #### [place] [address] Urea nitrogen [Mass/Vol] 10 mg/dL Normal 3-29 [facility] Comment on above: Performed By: #### L AB064 #### [place] [address] COMPLETE BLOOD COUNTon 05-08 Erythrocyte distribution width (RBC) [Ratio] 14.0 % Normal 9.0-15.0 [facility] Comment on above: Performed By: #### L AB119 #### [place] [address] Hematocrit (Bld) [Volume fraction] 40.4 % Low 41.0-50.0 [facility] Comment on above: Performed By: #### L AB119 #### [place] [address] Hemoglobin (Bld) [Mass/Vol] 13.7 g/dL Low 13.8-17.2 [facility] Comment on above: Performed By: #### L AB119 #### [place] [address] MCH (RBC) [Entitic mass] 30.4 pg Normal 27.0-33.0 [facility] Comment on above: Performed By: #### L AB119 #### [place] [address] MCHC (RBC) [Mass/Vol] 33.9 g/dL Normal 32.0-36.0 [facility] Comment on above: Performed By: #### L AB119 #### [place] [address] MCV (RBC) [Entitic vol] 89.9 fL Normal 80.0-100.0 M [facility] Comment on above: Performed By: #### L AB119 #### [place] [address] Platelets (Bld) [#/Vol] 164 10*3/uL Normal 130-400 [facility] Comment on above: Performed By: #### L AB119 #### [place] [address] RBC COUNT 4.49 M/MM3 Normal 4.40-5.80 [facility] Comment on above: Performed By: #### L AB119 #### [place] [address] WBC (Bld) [#/Vol] 16.8 10*3/uL High 3.8-10.8 [facility] Comment on above: Performed By: #### L AB119 #### [place] [address] COMPLETE BLOOD COUNT WITH DI FFERENTIALon 05-08-2020 ABSOLUTE BASOPHIL 0.1 K/MM3 Normal 0.0-0.3 [facility] Comment on above: Performed By: #### L AB119 #### [place] [address] ABSOLUTE SEGMENTED NEUTROPHIL 13.5 K/MM3 High 1.5-7.8 [facility] Comment on above: Performed By: #### L AB119 #### [place] [address] Basophils/100 WBC (Bld) 0.3 % Normal 0.0-2.0 [facility] Comment on above: Performed By: #### L AB119 #### [place] [address] Eosinophils (Bld) [#/Vol] 0.0 10*3/uL Normal 0.0-0.6 [facility] Comment on above: Performed By: #### L AB119 #### [place] [address] Eosinophils/100 WBC (Bld) 0.1 % Normal 0.0-7.0 [facility] Comment on above: Performed By: #### L AB119 #### [place] [address] Erythrocyte distribution width (RBC) [Ratio] 13.8 % Normal 9.0-15.0 [facility] Comment on above: Performed By: #### L AB119 #### [place] [address] Hematocrit (Bld) [Volume fraction] 39.7 % Low 41.0-50.0 [facility] Comment on above: Performed By: #### L AB119 #### [place] [address] Hemoglobin (Bld) [Mass/Vol] 13.2 g/dL Low 13.8-17.2 [facility] Comment on above: Performed By: #### L AB119 #### [place] [address] Lymphocytes (Bld) [#/Vol] 1.0 10*3/uL Normal 0.9-4.1 [facility] Comment on above: Performed By: #### L AB119 #### [place] [address] Lymphocytes/100 WBC (Bld) 6.4 % Low 18.0-47.0 [facility] Comment on above: Performed By: #### L AB119 #### [place] [address] MCH (RBC) [Entitic mass] 30.4 pg Normal 27.0-33.0 [facility] Comment on above: Performed By: #### L AB119 #### [place] [address] MCHC (RBC) [Mass/Vol] 33.2 g/dL Normal 32.0-36.0 [facility] Comment on above: Performed By: #### L AB119 #### [place] [address] MCV (RBC) [Entitic vol] 91.6 fL Normal 80.0-100.0 [facility] Comment on above: Performed By: #### L AB119 #### [place] [address] Monocytes (Bld) [#/Vol] 1.3 10*3/uL High 0.2-1.1 [facility] Comment on above: Performed By: #### L AB119 #### [place] [address] Monocytes/100 WBC (Bld) 8.1 % Normal 0-14.0 [facility] Comment on above: Performed By: #### L AB119 #### [place] [address] Platelets (Bld) [#/Vol] 187 10*3/uL Normal 130-400 [facility] Comment on above: Performed By: #### L AB119 #### [place] [address] RBC COUNT 4.34 M/MM3 Low 4.40-5.80 [facility] Comment on above: Performed By: #### L AB119 #### [place] [address] Segmented neutrophils/100 WBC (Bld) 85.1 % High 40.0-75.0 [facility] Comment on above: Performed By: #### L AB119 #### [place] [address] WBC (Bld) [#/Vol] 15.9 10*3/uL High 3.8-10.8 [facility] Comment on above: Performed By: #### L AB119 #### [place] [address] ETHANOLon 05-08-2020 Ethanol [Mass/Vol] Not detected Normal NONDT [facility] Comment on above: Performed By: #### L AB175 #### [place] [address] HEMOGLOBIN AND HEMATOCRITon 05-08-2020 Hematocrit (Bld) [Volume fraction] 37.0 % Low 41.0-50.0 [facility] Comment on above: Performed By: #### L AB236 #### [place] [address] Hemoglobin (Bld) [Mass/Vol] 12.5 g/dL Low 13.8-17.2 [facility] Comment on above: Performed By: #### L AB236 #### [place] [address] LACTIC ACIDon 05-08-2020 Lactate [Moles/Vol] 4.0 mmol/L High 0.5-2.2 [facility] Comment on above: Result Comment: Per the request of [facility]'s Bomoseen and approval by the [facility] Drilling Assistant and Medical Executive Committee, this critical value was not called to the caregiver. (NOTE) If ruling out sepsis: Result >2.0 meets criteria for severe sepsis, recommend repeat testing to rule out sepsis. Result >=4.0 meets criteria for septic shock. Performed By: #### L AB275 #### [place] [address] PREPARE RED BLOOD CELLSon PREPARE RED BLOOD CELLS UNIT PRODUCT COD E: X5717P99 PREPARE RED BLOOD CELLS: RED BLOOD CELLS, CPD>AS1, LEUKOCYTES REDUCED UNIT ID: [id number] UNIT ABO: O UNIT RH: POSITIVE UNIT DISPENSE STATUS: Emergency Issue UNIT EXPIRATION DATE: UNIT BLOOD TYPE: 5100 BLOOD CODING SYS: ISBT 128 [facility] Comment on above: Performed By: #### L [id number] #### [place] [address] PREPARE RED BLOOD CELLS UNIT PRODUCT COD E: I6177G12 PREPARE RED BLOOD CELLS: RED BLOOD CELLS, CPD>AS1, LEUKOCYTES REDUCED UNIT ID: [id number] UNIT ABO: O UNIT RH: POSITIVE UNIT DISPENSE STATUS: Emergency Issue UNIT EXPIRATION DATE: UNIT BLOOD TYPE: 5100 BLOOD CODING SYS: ISBT 128 [facility] Comment on above: Performed By: #### L [id number] #### [place] [address] PREPARE RED BLOOD CELLS UNIT PRODUCT COD E: X2356W49 PREPARE RED BLOOD CELLS: RED BLOOD CELLS, CPD>AS1, LEUKOCYTES REDUCED UNIT ID: [id number] UNIT ABO: O UNIT RH: POSITIVE UNIT INTERPRETATION: Compatible UNIT DISPENSE STATUS: Presumed Transfused UNIT EXPIRATION DATE: UNIT BLOOD TYPE: 5100 BLOOD CODING SYS: ISBT 128 UNIT PRODUCT CODE: [id number] PREPARE RED BLOOD CELLS: RED BLOOD CELLS, CPD>AS1, LEUKOCYTES REDUCED UNIT ID: [id number] UNIT ABO: O UNIT RH: POSITIVE UNIT INTERPRETATION: Compatible UNIT DISPENSE STATUS: Presumed Transfused UNIT EXPIRATION DATE: UNIT BLOOD TYPE: 5100 BLOOD CODING SYS: ISBT 128 [facility] Comment on above: Performed By: #### L [id number] #### [place] [address] PROTHROMBIN TIMEon INR Coag (PPP) [Relative time] 1.2 {INR} High 0.9-1.1 [facility] Comment on above: Result Comment: MODERATE-INTENSITY WARFARIN THERAPY: 2.0-3.0 HIGHER-INTENSITY WARFARIN THERAPY: 3.0-4.0 Performed By: #### L [id number] #### [place] [address] PT Coag (PPP) [Time] 15.3 s High 11.7-13.9 [facility] Comment on above: Performed By: #### L AB119 #### [place] [address] SURGICAL PATHOLOGYon 021 SURGICAL PATHOLOGY SURGICAL PATHOLOGY REPORT Path #: [id number] Patient : JUAN CARLOS NOGUERA Burkett #: [id number] Date: 05/09/2020 Pre Op Diagnosis Splenic laceration [...] is an area of focal hemorrhage present. Business Improvement Manager sections to include area of described defect and an area of focal hemorrhage are submitted in cassettes A through C . Note that the section with capsule still attached is submitted in cassette A . Technical work associated with this pathology investigation was performed by: [facility], [place], [place] [address]. [facility]/05/09/2020 Kat Aguilera Billing Fee Codes [phone] x 1 The CPT codes provided are based on AMA guidelines and are for informational purposes only. CPT coding is the sole responsibility of the billing libertarian. Please direct any questions regarding coding to the payer being billed. Normal [facility] Comment on above: Performed By: #### L AB119 #### [place] [address] TYPE AND SCREENon 05-08-2020 TYPE AND SCREEN ABO GROUP: O RH TYPE: Positive INDIRECT ANTIGLOB: Negative SPECIMEN EXPIRATION DATE/TIME: [id number] Normal [facility] Comment on above: Performed By: #### L [id number] #### [place] [address] VENOUS BLOOD GASon BASE EXCESS,VENOUS -7.3 MMOL/L Normal [facility] Comment on above: Result Comment: BASE EXCESS NORMALS: -2 TO +3 Performed By: #### L [id number] #### [place] [address] HCO3 (Bld) [Moles/Vol] 21.4 mmol/L Low 24.0-28.0 [facility] Comment on above: Performed By: #### L [id number] #### [place] [address] O2 ADMINISTRATED UNKNOWN Normal [facility] Comment on above: Performed By: #### L [id number] #### [place] [address] Oxygen saturation in Blood 71.3 % High 40.0-70.0 [facility] Comment on above: Performed By: #### L [id number] #### [place] [address] PCO2, VENOUS 55.7 MM HG High 41.0-51.0 [facility] Comment on above: Performed By: #### L [id number] #### [place] [address] PH, VENOUS 7.19 Low 7.32-7.42 [facility] Comment on above: Performed By: #### L [id number] #### [place] [address] PO2, VENOUS 43.6 MM HG High 25.0-40.0 [facility] Comment on above: Performed By: #### L [id number] #### [place] [address] SURGICALon 04-30-2017 SURGICAL [facility] JUAN CARLOS DOUGLAS [id number]. Page [address] [place] [address] PROC: 04/30/2017[facility] RECV: 04/30/201[address] RPTD: 05/08/2017[place] [address] LOC: OI ACCT: SEX: M [id number] AGE: 46 Y : 1970 PATHOLOGY REPORT ATTN: REQ: JOSE Velazquezinical Information: RIGHT HIP AVASCULAR NECROSISFINAL [...] the underlyingbone. The resection line is unremarkable. Business Improvement Manager sections aresubmitted after decalcification. ALP/DKR:jcsMicroscopic Examination:Microscopi c examination was performed.[id number] KAT MONTOYA D.O., F.C.A.P.[facility]/ [facility] Printed on: 05/08/2017750 [place], [place] [address]Vnuwbspv print date: 05/08/2017 Normal [facility] TYPE AND SCREEN CAPTUREon ABO CAPTURE O Normal [facility] Comment on above: Performed By: #### C T+S ####[employer] [id number] [place] [address] INDIRECT NEGAR CAPTURE Negative Normal [facility] Comment on above: Performed By: #### C T+S ####[employer] [id number] [place] [address] RH CAPTURE (2 D CLONES) Positive Normal [facility] Comment on above: Performed By: #### C T+S ####[facility] [id number] [place] [address] Progress Noteon 04-14-2017 HIM 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 Normal [facility] Vital Signs Date Time Vital Sign Value Performing Clinician Nico moy 01-06-2024 15:14-0400 Body mass index (BMI) [Ratio] 29.26 kg/m2 Jennifer Avery [address] Work Phone: [facility] 01-06-2024 15:14-0400 Body weight 95.17 kg Jennifer Avery [address] Work Phone: [facility] 01-06-2024 15:14-0400 Diastolic blood pressure 74 mm[Hg] Jennifer Avery [address] Work Phone: [facility] 01-06-2024 15:14-0400 Systolic blood pressure 128 mm[Hg] Jennifer Avery [address] Work Phone: [facility] 12-30-2023 14:38-0400 Blood Pressure Location [facility] 12-30-2023 14:38-0400 Diastolic blood pressure 84 mm[Hg] [facility] 12-30-2023 14:38-0400 Heart rate 91 /min [facility] 12-30-2023 14:38-0400 Respiratory rate 16 /min [facility] 12-30-2023 14:38-0400 SaO2% (BldA) [Mass fraction] 99 % [facility] 12-30-2023 14:38-0400 Systolic blood pressure 136 mm[Hg] [facility] 12-26-2023 07:38-0400 Body height 188 cm Cheyenne Horn MD Work Phone: [facility] 12-26-2023 07:38-0400 Body mass index (BMI) [Ratio] 26.83 kg/m2 Cheyenne Horn MD Work Phone: [facility] 12-26-2023 07:38-0400 Body weight 94.8 kg Cheyenne Horn MD Work Phone: [facility] 12-26-2023 07:38-0400 Diastolic blood pressure 62 mm[Hg] Cheyenne Horn MD Work Phone: [facility] 12-26-2023 07:38-0400 Heart rate 89 /min Cheyenne Horn MD Work Phone: [facility] 12-26-2023 07:38-0400 Systolic blood pressure 108 mm[Hg] Cheyenne Horn MD Work Phone: [facility] 12-24-2023 13:17-0400 Body height 187.96 cm MD Moreno Barrera Work Phone: [facility] 12-24-2023 13:17-0400 Body mass index (BMI) [Ratio] 26.3 kg/m2 MD Moreno Barrera Work Phone: [facility] 12-24-2023 13:17-0400 Body temperature 98.2 [degF] MD Moreno Barrera Work Phone: [facility] 12-24-2023 13:17-0400 Body weight 92.98 kg MD Moreno Barrera Work Phone: [facility] 12-24-2023 13:17-0400 Diastolic blood pressure 66 mm[Hg] MD Moreno Barrera Work Phone: [facility] 12-24-2023 13:17-0400 Heart rate 51 /min MD Moreno Barrera Work Phone: [facility] 12-24-2023 13:17-0400 Respiratory rate 18 /min MD Moreno Barrera Work Phone: [facility] 12-24-2023 13:17-0400 SaO2% (BldA) [Mass fraction] 98 % MD Moreno Barrera Work Phone: [facility] 12-24-2023 13:17-0400 Systolic blood pressure 107 mm[Hg] MD Moreno Barrera Work Phone: [facility] 11-28-2023 11:43-0400 Diastolic blood pressure 68 mm[Hg] [facility] 11-28-2023 11:43-0400 Heart rate 102 /min [facility] 11-28-2023 11:43-0400 Respiratory rate 16 /min [facility] 11-28-2023 11:43-0400 SaO2% (BldA) [Mass fraction] 98 % [facility] 11-28-2023 11:43-0400 Systolic blood pressure 118 mm[Hg] [facility] 11-12-2023 07:30-0400 Body temperature 97.8 [degF] MD Moreno Barrera Work Phone: [facility] 11-12-2023 07:30-0400 Diastolic blood pressure 76 mm[Hg] MD Moreno Barrera Work Phone: [facility] 11-12-2023 07:30-0400 Heart rate 65 /min MD Moreno Barrera Work Phone: [facility] 11-12-2023 07:30-0400 Respiratory rate 16 /min MD Moreno Barrera Work Phone: [facility] 11-12-2023 07:30-0400 SaO2% (BldA) [Mass fraction] 99 % MD Moreno Barrera Work Phone: [facility] 11-12-2023 07:30-0400 Systolic blood pressure 108 mm[Hg] MD Moreno Barrera Work Phone: [facility] 11-11-2023 13:51-0400 Body height 187.96 cm MD Moreno Barrera Work Phone: [facility] 11-10-2023 09:00-0400 Body weight 90.9 kg MD Moreno Barrera Work Phone: [facility] 11-06-2023 14:48-0400 Body temperature 98.2 [degF] MD Moreno Barrera Work Phone: [facility] 11-06-2023 14:48-0400 Diastolic blood pressure 88 mm[Hg] MD Moreno Barrera Work Phone: [facility] 11-06-2023 14:48-0400 Heart rate 83 /min MD Moreno Barrera Work Phone: [facility] 11-06-2023 14:48-0400 Respiratory rate 18 /min MD Moreno Barrera Work Phone: [facility] 11-06-2023 14:48-0400 SaO2% (BldA) [Mass fraction] 98 % MD Moreno Barrera Work Phone: [facility] 11-06-2023 14:48-0400 Systolic blood pressure 116 mm[Hg] MD Moreno Barrera Work Phone: [facility] 11-06-2023 11:23-0400 Body height 187.96 cm MD Moreno Barrera Work Phone: [facility] 11-06-2023 11:23-0400 Body weight 94.3 kg MD Moreno Barrera Work Phone: [facility] 10-07-2023 14:40-0400 Diastolic blood pressure 80 mm[Hg] [facility] 10-07-2023 14:40-0400 Heart rate 99 /min [facility] 10-07-2023 14:40-0400 Respiratory rate 16 /min [facility] 10-07-2023 14:40-0400 SaO2% (BldA) [Mass fraction] 96 % [facility] 10-07-2023 14:40-0400 Systolic blood pressure 128 mm[Hg] [facility] 08-11-2023 14:53-0400 Diastolic blood pressure 82 mm[Hg] [facility] 08-11-2023 14:53-0400 Heart rate 101 /min [facility] 08-11-2023 14:53-0400 SaO2% (BldA) [Mass fraction] 96 % [facility] 08-11-2023 14:53-0400 Systolic blood pressure 136 mm[Hg] [facility] 07-31-2023 08:08-0400 Diastolic blood pressure 71 mm[Hg] [facility] 07-31-2023 08:08-0400 Systolic blood pressure 100 mm[Hg] [facility] 07-31-2023 08:05-0400 Heart rate 133 /min [facility] 07-31-2023 08:05-0400 Respiratory rate 15 /min [facility] 07-31-2023 08:05-0400 SaO2% (BldA) [Mass fraction] 99 % [facility] 07-31-2023 08:04-0400 Diastolic blood pressure 65 mm[Hg] [facility] 07-31-2023 08:04-0400 Systolic blood pressure 105 mm[Hg] [facility] 07-31-2023 08:00-0400 Diastolic blood pressure 95 mm[Hg] [facility] 07-31-2023 08:00-0400 Heart rate 101 /min [facility] 07-31-2023 08:00-0400 Respiratory rate 14 /min [facility] 07-31-2023 08:00-0400 Systolic blood pressure 118 mm[Hg] [facility] 07-31-2023 07:55-0400 Heart rate 99 /min [facility] 07-31-2023 07:55-0400 Respiratory rate 15 /min [facility] 07-31-2023 07:55-0400 SaO2% (BldA) [Mass fraction] 99 % [facility] 07-31-2023 06:46-0400 Heart rate 99 /min [facility] 07-25-2023 10:54-0400 Diastolic blood pressure 82 mm[Hg] [facility] 07-25-2023 10:54-0400 Heart rate 115 /min [facility] 07-25-2023 10:54-0400 SaO2% (BldA) [Mass fraction] 100 % [facility] 07-25-2023 10:54-0400 Systolic blood pressure 122 mm[Hg] [facility] 05-30-2023 14:55-0500 Diastolic blood pressure 90 mm[Hg] Zeb [facility] 05-30-2023 14:55-0500 Heart rate 52 /min [facility] 05-30-2023 14:55-0500 SaO2% (BldA) [Mass fraction] 91 % [facility] 05-30-2023 14:55-0500 Systolic blood pressure 124 mm[Hg] [facility] 05-02-2023 13:06-0500 Diastolic blood pressure 82 mm[Hg] [facility] 05-02-2023 13:06-0500 Heart rate 54 /min [facility] 05-02-2023 13:06-0500 SaO2% (BldA) [Mass fraction] 96 % [facility] 05-02-2023 13:06-0500 Systolic blood pressure 138 mm[Hg] [facility] 04-17-2023 07:36-0500 Body height 187.96 cm MD Moreno Barrera Work Phone: [facility] 04-17-2023 07:36-0500 Body weight 99.79 kg MD Moreno Barrera Work Phone: [facility] 03-20-2023 13:47-0500 Diastolic blood pressure 80 mm[Hg] Zeb [facility] 03-20-2023 13:47-0500 Heart rate 116 /min [facility] 03-20-2023 13:47-0500 SaO2% (BldA) [Mass fraction] 96 % [facility] 03-20-2023 13:47-0500 Systolic blood pressure 132 mm[Hg] Zeb [facility] 12-05-2022 11:30-0400 Body height 187.96 cm Moreno Barrera Other [employer] [facility] [employer] Other 12-05-2022 11:30-0400 Body mass index (BMI) [Ratio] 25.75 kg/m2 Moreno Barrera Other [employer] Other 12-05-2022 11:30-0400 Body weight 90.99 kg Moreno Barrera Other [employer] Other 12-05-2022 11:30-0400 Diastolic blood pressure 88 mm[Hg] Moreno Barrera Other [employer] Other 12-05-2022 11:30-0400 Respiratory rate 20 /min Moreno Barrera Other [employer] Other 12-05-2022 11:30-0400 Systolic blood pressure 134 mm[Hg] Moreno Barrera Other [employer] Other 09-30-2022 13:50-0400 Body height 187.96 cm Kat Boss Other [employer] Other 09-30-2022 13:50-0400 Body mass index (BMI) [Ratio] 25.83 kg/m2 Kat Boss Other [employer] Other 09-30-2022 13:50-0400 Body temperature 97.7 [degF] Kat Boss Other [employer] Other 09-30-2022 13:50-0400 Body weight 91.26 kg Kat Gera Other [employer] Other 09-30-2022 13:50-0400 Diastolic blood pressure 76 mm[Hg] Kat Boss Other [employer] Other 09-30-2022 13:50-0400 Respiratory rate 18 /min Kat Boss Other [employer] Other 09-30-2022 13:50-0400 SaO2% (BldA) [Mass fraction] 98 % Kat Boss Other [employer] Other 09-30-2022 13:50-0400 Systolic blood pressure 132 mm[Hg] Kat Boss Other [employer] Other 06-11-2021 08:25-0400 Body height 187.96 cm M.D. [employer] Work Phone: [facility] Work Phone: 06-11-2021 08:25-0400 Body mass index (BMI) [Ratio] 24.6 kg/m2 M.D. [employer] Work Phone: [facility] Work Phone: 06-11-2021 08:25-0400 Body temperature 96.1 [degF] M.D. Diana Peoples Work Phone: [facility] Work Phone: 06-11-2021 08:25-0400 Body weight 87.09 kg M.D. Diana Peoples Work Phone: [facility] Work Phone: 06-11-2021 08:25-0400 Diastolic blood pressure 62 mm[Hg] M.D. Diana Peoples Work Phone: [facility] Work Phone: 06-11-2021 08:25-0400 Heart rate 74 /min M.D. Diana Peoples Work Phone: [facility] Work Phone: 06-11-2021 08:25-0400 SaO2% (BldA) [Mass fraction] 99 % M.D. Diana Shelton Work Phone: [facility] Work Phone: 06-11-2021 08:25-0400 Systolic blood pressure 122 mm[Hg] M.D. Diana Peoples Work Phone: [facility] Work Phone: 03-12-2021 07:57-0500 Body height 187.96 cm M.D. Diana Peoples Work Phone: [facility] Work Phone: 03-12-2021 07:57-0500 Body mass index (BMI) [Ratio] 25.2 kg/m2 M.D. Diana Forbesters Work Phone: [facility] Work Phone: 03-12-2021 07:57-0500 Body temperature 96.3 [degF] M.D. Diana Peoples Work Phone: [facility] Work Phone: 12-20-2021 07:57-0500 Body weight 89.36 kg M.D. Diana Peoples Work Phone: [facility] Work Phone: 03-12-2021 07:57-0500 Diastolic blood pressure 72 mm[Hg] M.D. Diana Peoples Work Phone: [facility] Work Phone: 03-12-2021 07:57-0500 Heart rate 132 /min M.D. Diana Peoples Work Phone: [facility] Work Phone: 03-12-2021 07:57-0500 SaO2% (BldA) [Mass fraction] 97 % M.D. Diana Peoples Work Phone: [facility] Work Phone: 03-12-2021 07:57-0500 Systolic blood pressure 138 mm[Hg] M.D. Diana Peoples Work Phone: [facility] Work Phone: 02-12-2021 07:45-0500 Body height 187.96 cm M.D. Diana Peoples Work Phone: [facility] Work Phone: 02-12-2021 07:45-0500 Body mass index (BMI) [Ratio] 25.2 kg/m2 M.D. Diana Peoples Work Phone: [facility] Work Phone: 02-12-2021 07:45-0500 Body temperature 96.3 [degF] M.D. Diana Peoples Work Phone: [facility] Work Phone: 02-12-2021 07:45-0500 Body weight 89.36 kg M.D. Diana Forbesters Work Phone: [facility] Work Phone: 02-12-2021 07:45-0500 Diastolic blood pressure 72 mm[Hg] M.D. [facility] Work Phone: [facility] Work Phone: 02-12-2021 07:45-0500 Heart rate 76 /min M.D. Diana Peoples Work Phone: [facility] Work Phone: 02-12-2021 07:45-0500 SaO2% (BldA) [Mass fraction] 100 % [facility] Work Phone: [facility] Work Phone: 02-12-2021 07:45-0500 Systolic blood pressure 126 mm[Hg] M.D. Diana [facility] Work Phone: [facility] Work Phone: Encounters Encounter Date Encounter Type Care Provider Facility Start: 01-12-2024 ambulatory Ronaldo Sahu acility:[facility] Start: 01-06-2024 End: 01-06-2024 Office outpatient visit 25 minutes Jennifer Avery [address] Work Phone: [facility] Comment on above: Lumbar radiculopathy (Primary Dx); Weakness of both lower extremities; Cognitive impairment; Anxiety; Muscle stiffness; Blurry vision, bilateral Start: 01-06-2024 End: 01-06-2024 ambulatory JENNIFER BENNIE Not Available Start: 01-06-2024 End: 01-06-2024 Bamboo flowsheet Jennifer Bennie [address] Work Phone: [facility] Start: 01-06-2024 End: 01-06-2024 Bamboo flowsheet Jennifer Bennie [address] Work Phone: [facility] Start: 12-31-2023 ambulatory CHEYENNE Singleton [facility] Start: 12-30-2023 End: 12-30-2023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
[2024-01-16 11:04] LABS: Creatine Kinase 102 U/L (39-308); Myoglobin 48 ng/mL (16-96)
--- OUTSIDE RECORDS SUMMARY | 2024-01-20 10:31 | XMS_ITS | CCD ---
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 Marie K. Primary Care Provider Mckenzie C.N.P. Marie K. Attending Provider Ele Peoples Family Provider [phone] Mckenzie C.N.P. Marie K. Primary Care Provider Mckenzie C.N.P. Marie K. Attending Provider [employer] Unavailable Mckenzie, Marie K. Attending Unavailable [...] MORENO BARRERA Primary Care Physician MELANY Avery Attending Provider Unavailable MD Moreno Barrera Primary Care Provider MD Moreno Barrera Primary Care Provider MD Ronaldo Castro Attending Provider MD Arnaldo [facility] Emergency Provider MD Ronaldo Castro Admit Provider MD Moreno Barrera Primary Care Provider MD Ronaldo Castro Attending Provider MD Moreno Barrera Primary Care Provider [phone] MD Lino Floyd Attending Provider MD Ronaldo Castro Attending Provider CHEYENNE HORN Admitting Unavailable CHEYENNE HORN Attending Unavailable MORENO BARRERA Primary Care Unavailable Moreno Barrera MD Primary Care Provider Cheyenne Horn MD Unavailable CHEYENNE HORN Attending Unavailable MORENO BARRERA Primary Care Unavailable POCLESVIA RODRIGUES Attending Unavailable LESVIA BUTLER Referring Unavailable ANGELA GARZA Attending Unavailable ANGELA GARZA Referring Unavailable JENNIFER AVERY Attending Unavailable JENNIFER AVERY Attending Unavailable JENNIFER AVERY Attending Unavailable JENNIFER AVERY Attending Unavailable Moreno Barrera MD Primary Care Provider [phone] Amalia Burleson Consult[employer] Unavailable Ronaldo Castro Admitting [...] Knight Attending Unavailable Zeb Delarosa Attending Unavaila ble Zeb Delarosa Referring Unavaila ble Zeb Delarosa Admitting Unavaila ble Zeb Delarosa Consulting Unavaila ble Zeb Delarosa Attending Unavaila ble Zeb Delarosa Referring Unavaila ble Zeb Delarosa Admitting Unavaila ble Zeb Delarosa Consulting Unavaila ble Chanel Montalvo Admitting Unavailable Chanel Montalvo GRaymond Attending Unavailable MD Tylor Knight Referring Unavailable JENNIFER AVERY Referring Unavail able Zeb Delarosa Attending Unavaila ble NONE, XXXX Referring Unavailable MD Tylor Knight Admitting Unavailable MD Tylor Knight Attending Unavailable NONE, XXXX Referring Unavailable MD Tylor Knight Attending Unavailable Allergies Allergy Classification Reported Allergen(s) Allergy Type Date of Onset Reaction(s) Facility (4 sources) DULoxetine Drug Allergy 4 [facility] Healthcare Work Phone: (1 source) Unable to Assess Drug allergy (disorder) 4 [facility] Repository (1 source) No Known Medication Allergies; Translations: [No Known Medication Allergies] Propensity to adverse reactions (disorder) [facility] Repository Medications Current Medications Medication Drug Class(es) Dates Sig (Normalized) Sig (Original) Tylenol (18 sources) Start: 03-20-2023 Tylenol Refill s(s) 0 [...] for mild pain (1 - 3). Active [id number] actuat albuterol 0.09 mg/actuat metered dose [...] Daily, # 30 tab(s), Refills(s) 5, Pharmacy: [facility]/pharmacy #[id number], 178, cm, 12/30/23 14:47:00 EDT, Height/Length [...] days, # 25 tab(s), Refills(s) 0, Pharmacy: [facility]/pharmacy #[id number], 178, cm, 12/30/23 14:47:00 EDT, Height/Length Dosing, 95.2, kg, 12/30/23 14:47:00 EDT, Weight Dosing Start Date: 12/30/23 Status: Ordered amphetamine aspartate 5 mg / amphetamine sulfate 5 mg / dextroamphetamine saccharate 5 mg / dextroamphetamine sulfate 5 mg oral tablet (4 sources) Central Nervous System Stimulant take 1 tablet by mouth in the morning amphetamine-dextroamphetamine (Adderall) 20 MG tablet Take 20 mg by mouth in the morning and 20 mg before bedtime. Active apixaban 5 mg oral tablet (17 sources) Factor Xa Inhibitor Start : 10-15 take 1 tablet by mouth every twelve hours Eliquis 5 mg tablet Take 1 tablet (5 mg) by mouth every 12 hours. 10/16/2023 Active Start: 08-15-2023 take 1 tablet by sabrina th twice daily Eliquis 5 mg oral tablet 5 mg = 1 tab(s), Oral, BID, # 180 tab(s), Refills(s) 1, [id number] 178, cm, 08/11/23 14:57:00 EDT, Height/Length Dosing, 99, kg, 08/11/23 14:57:00 EDT, Weight Dosing Start Date: 08/15/23 Status: Ordered Start: 05-05-2023 take 1 tablet by sabrina twice daily Eliquis 5 mg oral tablet 5 mg = 1 tab(s), Oral, BID, # 60 tab(s), Refills(s) 3, Pharmacy: [facility]/pharmacy #[id number], 178, cm, 05/02/23 13:12:00 EST, Height/Length Dosing, 102, kg, 05/02/23 13:12:00 EST, Weight Dosing Start Date: 05/05/23 Status: Ordered ARIPiprazole 10 mg oral tablet (4 sources) Atypical Antipsychotic Start: 11-13-2023 take 1 tablet by mouth at bedtime ARIPiprazole (Abilify) 10 MG tablet Take 10 mg by mouth at bedtime 11/13/2023 Active aspirin 81 mg chewable tablet (7 sources) Platelet Aggregation Inhibitor, Nonsteroidal Anti-inflammatory Drug Start: 03-20-2023 aspirin 81 MG chewable tablet Chew 81 mg 03/20/2023 Active atorvastatin 40 mg oral tablet (14 sources) HMG-CoA Reductase Inhibitor Start: 07-28-2023 take 1 tablet by mouth once daily Lipitor 40 MG tablet Take 40 mg by mouth Daily 07/28/2023 Active busPIRone hydrochloride 5 mg oral tablet (9 sources) Start: 11-12-2023 take 1 tablet by [...] BID, # 60 tab(s), Refills(s) 6, Pharmacy: [facility]/pharmacy #[id number], 178, cm, 08/11/23 14:57:00 EDT, Height/Length Dosing, 99, kg, 08/11/23 14:57:00 EDT, Weight Dosing Start Date: 08/11/23 Status: Ordered Start: 07-28-2023 take 1 tablet by sabrina th every twelve hours carvedilol (Coreg) 3.125 mg tablet Take 1 tablet (3.125 mg) by mouth every 12 hours. 07/28/2023 Active Start: 05-05-2023 take 1 tablet by sabrina th twice daily carvedilol 3.125 mg Tab 3.125 mg = 1 tab(s), Oral, BID, # 60 tab(s), Refills(s) 3, Pharmacy: [facility]/pharmacy #[id number], 178, cm, 05/02/23 13:12:00 EST, Height/Length Dosing, 102, kg, 05/02/23 13:12:00 EST, Weight Dosing Start Date: 05/05/23 Status: Ordered Start: 05-05-2023 take 1 tablet by sabrina twice daily carvedilol 3.125 mg Tab 3.125 mg = 1 tab(s), Oral, BID, # 60 tab(s), Refills(s) 3, Pharmacy: [facility]/pharmacy #[id number], 178, cm, 05/02/23 13:12:00 EST, Height/Length [...] DULoxetine 30 mg delayed release oral capsule (4 sources) Serotonin and Norepinephrine Reuptake Inhibitor Start: 04-22-2023 take 1 capsule by mouth once daily DULoxetine (Cymbalta) [address] capsule Take 30 mg by mouth Daily 04/22/2023 Active FLUoxetine 20 mg oral capsule (8 sources) Serotonin Reuptake Inhibitor Start: 11-27-2023 take [...] effects) losartan potassium 50 mg oral tablet (7 sources) Angiotensin 2 Receptor Larry Start: 05-30-2023 take 1 tablet by mouth once daily losartan (Cozaar) 50 MG tablet Take 50 mg by mouth Daily 05/30/2023 Active Start: 05-05-2023 take 1 tablet by sabrina th once daily losartan 25 mg Tab 25 mg = 1 tab(s), Oral, Daily, # 30 tab(s), Refills(s) 3, Pharmacy: [facility]/pharmacy #[id number], 178, cm, 05/02/23 13:12:00 EST, Height/Length Dosing, 102, kg, 05/02/23 13:12:00 EST, Weight Dosing Start Date: 05/05/23 Status: Ordered Methocarbamol (4 sources) Muscle Relaxant Methocarbamol (ROBAXIN IJ) Active metoprolol tartrate 25 mg oral tablet (7 sources) beta-Adrenergic Larry Start: 03-20-20 metoprolol tartrate (Lopressor) 25 MG tablet Take 25 mg by mouth 03/20/2023 Active nicotine 2 mg chewing gum (2 sources) Cholinergic Nicotinic Agonist Start: 11-12-19 Nicotine (Polacrilex) Active 2 MG BUCCAL Q2H November 12, 2023 12:00am [place] (No Known Home Meds) (1 source) Start: 03-12-20 [place] (No Known Home Meds) Active 0 March 12, 2021 8:12am oxyCODONE (4 sources) Opioid Agonist oxyCODONE HCl (ROXICODONE PO) Active Polyethylene Glycols (4 sources) POLYETHYLENE GLY COL 3350 PO Active polymyxin b 98819 unt/ml / trimethoprim 1 mg/ml ophthalmic solution (1 source) Dihydrofolate Reductase Inhibitor Antibacterial, Polymyxin-class Antibacterial Start: 12-24-19 Polymyxin B Sulf-Trimethoprim Active 1 DROPS OPHTHALMIC Every three hours 12 28December 24, 2023 12:00am while awake; do not exceed 6 doses in 24 hours pregabalin 25 mg oral capsule (3 sources) Start: 01-07-20 End: 03-07-20 take 1 [...] mg / valsartan 26 mg oral tablet (15 sources) Angiotensin 2 Receptor Larry Start: 10-17-19 take 1 tablet by mouth every twelve hours Entresto 24-26 mg tablet Take 1 tablet by mouth every 12 hours. 2023 Active Start: 06-14-2023 Entresto 24 mg -26 mg oral tablet 1 tab(s), Oral, BID, 60 tab(s), Refill(s) 6, [id number], 178, cm, 05/30/23 15:00:00 EST, Height/Length Dosing, 101.3, kg, 05/30/23 15:00:00 EST, Weight Dosing Start Date: 06/14/23 Status: Ordered sacubitril-valsa rtan (Entresto) 24-26 MG tablet Take 1 tablet by mouth in the morning and 1 tablet before bedtime. 1 TABLET . Active sertraline 50 mg oral tablet (9 sources) Serotonin Reuptake Inhibitor Start: 11-06-2023 take 1 tablet by mouth once daily sertraline (Zoloft) 50 MG tablet Take 50 mg by mouth Daily 11/06/2023 Active Start: 02-12-2021 End: 03-12-2021 take 50 mg by mouth once daily Sertraline Discontinued 50 MG PO daily February 12, 2021 9:45am March 12, 2021 9:01am spironolactone 25 mg oral tablet (5 sources) Aldosterone Antagonist Start: 05-30-2023 take 1 tablet by mouth once daily spironolactone 25 mg Tab 25 mg = 1 tab(s), Oral, Daily, # 30 tab(s), Refills(s) 6, Pharmacy: [facility]/pharmacy #[id number], 178, cm, 05/30/23 15:00:00 EST, Height/Length [...] Coronary atherosclerosis; Translations: [Atherosclerotic heart disease of [place] coronary artery without angina pectoris] Onset: 08-11-2023 [...] 12-26-2023 12-26-2023 Episodic Other nervous system disorders (4 sources) Bilateral carpal tunnel syndrome; Translations: [Carpal [...] disc disorders; other back problems (4 sources) Degeneration of cervical intervertebral disc; Translations: [...] Onset: 04-28-2017 Episodic Other nervous system disorders (4 sources) Numbness and tingling sensation of skin; Translations: [Anesthesia of skin] Onset: 07-07-2023 07-07-2023 Episodic Other nervous system disorders (4 sources) Paresthesia; Translations: [Paresthesia of skin] Onset: 07-07-2023 07-07-2023 Episodic Spondylosis; intervertebral disc disorders; other back problems (14 sources) Radiculopathy, cervical region; Translations: [Spinal stenosis, cervical region] Onset: 04-17-2023 Episodic Unclassified (1 source) Unilateral primary osteoarthritis, right hip; Translations: [Unilateral primary osteoarthritis, right hip] Onset: 04-28-2017 Unclassified (1 source) Encounter for preprocedural laboratory examination; Translations: [Encounter for preprocedural laboratory examination] Onset: 04-28-2017 Unclassified (1 source) Lumbar pain M54.50 Results Test Name Value Interpretation Reference Range Facility ALL MYOGLOBINon 01-16-2024 Myoglobin [Mass/Vol] 48 ng/mL 16 - 96 ng/mL [facility] ALL THYROID STIM HORMONEon 1 TSH Qn 3.05 m[IU]/L [facility] CCF CKon 01-16-2024 CK [Catalytic activity/Vol] 102 U/L 39 - 308 U/L [facility] No Panel Informationon 01-15 [facility] Heart and Vascular Office/Cl inic Noteon 12-30-2023 [...] Use:., 12/30/2023 Family History Heart disease: Father. Normal [facility] Comment on above: Result Comment: Elec tronically Signed By: Antonia RUBIO, Tylor Potter\.br\Date and Time Signed: 12/30/23 15:02 EDT ECG 12 Leadon 12-26-[address] [facility] Work Phone: [facility] Work Phone: Heart and Vascular Office/Cl [...] family reason. More recently, he was at [facility] for some rehabilitation in was advised to [...] History Heart disease: Father. Normal [facility] Comment on above: Result Comment: Elec tronically Signed By: Antonia RUBIO, Tylor Ptoter\.br\Date and Time Signed: 11/28/23 12:09 EDT Cholesterol [Mass/volume] in Serum or PlasmaOrdered By: Ronaldo Castro on 11-07-2023 Cholesterol [Mass/Vol] 110 mg/dL Low 140-200 [facility] Comment on above: Chol less than 200 m g/dl low riskChol 201-239 mg/dl borderline riskChol 240 mg/dl and greater high risk Result Comment: Chol less than 200 mg/dl low risk Chol 201-239 mg/dl borderline risk Chol 240 mg/dl and greater high risk Performed By: #### V [id number], LIPID, TSH3 wRFLX #### [facility] [address] Cholesterol in LDL Calc [Mas s/Vol]Ordered By: Ronaldo Castro on 11-07-2023 Cholesterol in LDL [Mass/Vol] 61 mg/dL 0-100 [facility] Comment on above: LDL ATP III CLASSIFI CATIONLDL less than 100 mg/dL OptimalLDL 100-129 mg/dL Near or above optimalLDL 130-159 mg/dL Borderline highLDL 160-189 mg/dL HighLDL greater than 189 mg/dL Very high Cholesterol in VLDL Calc [Ma ss/Vol]Ordered By: Ronaldo Castro on 11-07-2023 Cholesterol in VLDL [Mass/Vol] 16 mg/dL [facility] ECG 12 lead ECGon 11-07-2023 ECG 12 lead ECG [facility] Main [address] [address] Electrocardiograph Report Signed Patient: Juan Carlos Noguera MR#: [id number] 36 : 1970 Acct:[id number] Age/Sex: 53 / M ADM Date: 11/06/23 Loc: 1S Room: [address] [place] [address] Type: ADM IN Attending Dr: Ronaldo Castro [...] in Inferior leads Confirmed by Salvador Lira ([id number]) on 11/07/2023 10:18:08 AM Referred By: Electronically Signed By: Salvador Lira Transcribed By: MUS Signed By Salvador Lira MD 11/07/23 1018 Normal [facility] ECG 12 lead ECG [facility] Main [address] [address] Electrocardiograph Report Signed Patient: Juan Carlos Noguera MR#: [id number] [birth year] : 1970 Acct:[id number] Age/Sex: 53 / M ADM Date: 11/06/23 Loc: 1S Room: [address] [place] [address] Type: ADM IN Attending Dr: Ronaldo Castro [...] previous ECGs available Confirmed by Salvador Lira ([id number]) on 11/07/2023 1:07:23 PM Referred By: Electronically Signed By: Salvador Lira Transcribed By: MUS Signed By Salvador Lira MD 11/07/23 1307 Normal [facility] Lipid Panelon 11-07-2023 LDL Cholesterol,Calculated 61 mg/dL Normal 0-100 [facility] Comment on above: Result Comment: LDL ATP III CLASSIFICATION LDL less than 100 mg/dL Optimal LDL 100-129 mg/dL Near or above optimal LDL 130-159 mg/dL Borderline high LDL 160-189 mg/dL High LDL greater than 189 mg/dL Very high Performed By: #### V [id number], LIPID, TSH3 wRFLX #### [facility] [address] Triglyceride w/Reflex 84 mg/dL Normal 0-149 [facility] Comment on above: Result Comment: TRIG ATP III CLASSIFICATION TRIG less than 150 mg/dL Normal TRIG 150-199 mg/dL Borderline high TRIG 200-500 mg/dL High TRIG greater than 500 mg/dL Very high Standard traceable to the Center for Disease Conrtrol and Prevention (CDC) test method. Performed By: #### V [id number], LIPID, TSH3 wRFLX #### [facility] [address] [place] [id number] [facility] VLDL CHOLESTEROL 16 mg/dL Normal [facility] Comment on above: Performed By: #### V [id number], LIPID, TSH3 wRFLX #### [facility] [address] [place] [id number] [place] Serum or plasma high density lipoprotein (HDL) cholesterol measurementOrdered By: Ronaldo Castro on 11-07-2023 Cholesterol in HDL [Mass/Vol] 32 mg/dL Normal 23-92 [facility] Comment on above: HDL CHOL ATP-III CLA SSIFICATION Cardiovascular RiskHDL > or equal to 60 mg/dL LOWHDL < 40 mg/dL HIGH Result Comment: HDL CHOL ATP-III CLASSIFICATION Cardiovascular Risk HDL > or equal to 60 mg/dL LOW HDL < 40 mg/dL HIGH Performed By: #### V [id number], LIPID, TSH3 wRFLX #### [facility] [address] Serum or plasma total choles terol/high density lipoprotein (HDL) cholesterol mass ratOrdered By: Ronaldo Castro on 11-07-2023 Cholesterol.total/Barbara sterol in HDL [Mass ratio] 3.4 {ratio} Normal <5.0 [facility] Comment on above: Performed By: #### V [id number], LIPID, TSH3 wRFLX #### [facility] [address] [place] [address] Thyroid Stim Hormone w/Rflxo n 11-07-2023 Thyroid Stim Hormone w/Rflx 0.87 u[iU]/mL Normal 0.45-5.33 [facility] Comment on above: Performed By: #### V [id number], LIPID, TSH3 wRFLX #### [address] Thyrotropin [Units/volume] i n Serum or PlasmaOrdered By: Ronaldo Castro on 11-07-2023 TSH Qn 0.87 m[IU]/L 0.45-5.33 [facility] Triglyceride [Mass/volume] i n Serum or PlasmaOrdered By: Ronaldo Castro on 11-07-2023 Triglyceride [Mass/Vol] 84 mg/dL 0-149 [facility] Comment on above: TRIG ATP III CLASSIF ICATIONTRIG less than 150 mg/dL NormalTRIG 150-199 mg/dL Borderline highTRIG 200-500 mg/dL High TRIG greater than 500 mg/dL Very highStandard traceable to the Center for Disease Conrtrol and Prevention (CDC) test method. Vitamin D 25 Hydroxy Totalon 11-07-2023 Vitamin D 25 Hydroxy Total 28.2 ng/mL Low 30-100 [facility] Comment on above: Result Comment: ULISES MIN D STATUS 25(OH)VITAMIN D RANGE (ng/mL) Deficient <20 Insufficient 20 to <30 Sufficient 30 to 100 Reference: Savannah Villalobos, Sindi RAMACHANDRAN, et al. Evaluation,treatment, and prevention of vitamin D deficiency; an Endocrine Society clinical practice guideline. JCEM. 2010; 96(7):191-. PERFORMED BY: [facility] [address] [place] [address] PATHOLOGIST [employer]FF[employer] MANAGER DIMAS BUCKLEY M.D. Performed By: #### V [id number], LIPID, TSH3 wRFLX #### [facility] [address] Vitamin D+Metabolites [Mass/ volume] in Serum or PlasmaOrdered By: Ronaldo Castro on 11-07-2023 Vitamin D+Metabolites [Mass/Vol] 28.2 ng/mL Low 30-100 [facility] Comment on above: VITAMIN D STATUS 25( [place])VITAMIN D RANGE (ng/mL) Deficient <20 Insufficient 20 to <30Sufficient 30 to 100Reference: Savannah Villalobos, Sindi RAMACHANDRAN, et al. Evaluation,treatment, and prevention of vitamin D deficiency; an Endocrine Society clinical practice guideline. JCEM. 2010; 96(7):191-. Alanine aminotransferase [En zymatic activity/volume] in Serum or PlasmaOrdered By: Gem Mcintosh on 11-06-2023 ALT [Catalytic activity/Vol] 14 U/L Normal 7-52 [facility] Comment on above: Performed By: #### C MP, ETOH, CBC ####[facility] [id number] [place] [id number] [place] Albumin [Mass/volume] in Ser um or Plasma by Bromocresol green (BCG) dye binding methoOrdered By: Gem Mcintosh on 11-06-2023 Albumin BCG dye [Mass/Vol] 4.3 g/dL 3.5-5.7 [facility] Alkaline phosphatase [Enzyma tic activity/volume] in Serum or PlasmaOrdered By: Gem Mcintosh on 11-06-2023 ALP [Catalytic activity/Vol] 61 U/L Normal 34-104 [facility] Comment on above: Performed By: #### C MP, ETOH, CBC ####[place] [id number] [address] Amphetamine Screen Ql (U)Ord ered By: Gem Mcintosh on 11-06-2023 Amphetamines Ql (U) Negative Negative [facility] Aspartate aminotransferase [ Enzymatic activity/volume] in Serum or PlasmaOrdered By: Gem Mcintosh on 11-06-2023 AST [Catalytic activity/Vol] 15 U/L Normal 13-39 [facility] Comment on above: Performed By: #### C MP, ETOH, CBC ####[address] Automated basophil %Ordered By: Gem Mcintosh on 11-06-2023 Basophils/100 WBC (Bld) 1.2 % Normal . [facility] Comment on above: Performed By: #### C MP, ETOH, CBC ####[place] [id number] [facility] Automated basophil countOrde red By: Gem Mcintosh on 11-06-2023 Basophils (Bld) [#/Vol] 0.2 10*3/uL Normal 0.0-0.2 [facility] Comment on above: Result Comment: PERF ORMED BY: [facility] [address] [place] [id number] PATHOLOGIST [employer]FF[employer] MANAGER DIMAS BUCKLEY M.D. Performed By: #### C MP, ETOH, CBC ####[place] [id number] [facility] Automated blood monocyte cou ntOrdered By: Gem Mcintosh on 11-06-2023 Monocytes (Bld) [#/Vol] 1.3 10*3/uL High 0.0-0.8 [facility] Comment on above: Performed By: #### C MP, ETOH, CBC ####[place] [id number] [facility] Automated eosinophil %Ordere d By: Gem Mcintosh on 11-06-2023 Eosinophils/100 WBC (Bld) 1.2 % Normal . [facility] Comment on above: Performed By: #### C MP, ETOH, CBC ####[place] [id number] [address] Automated eosinophil countOr dered By: Gem Mcintosh on 11-06-2023 Eosinophils (Bld) [#/Vol] 0.2 10*3/uL Normal 0.0-0.45 [facility] Comment on above: Performed By: #### C MP, ETOH, CBC ####[place] [id number] [address] Automated epithelial cells c ount in urine sediment (number/area)Ordered By: Gem Mcintosh on 11-06-2023 Epithelial cells Auto (Urine sed) [#/Area] 1-2 [HPF] 0-2 [facility] Automated monocyte %Ordered By: Gem Mcintosh on 11-06-2023 Monocytes/100 WBC (Bld) 9.6 % Normal . [facility] Comment on above: Performed By: #### C MP, ETOH, CBC ####[address] Automated neutrophil %Ordere d By: Gem Mcintosh on 11-06-2023 Neutrophils/100 WBC (Bld) 66.4 % Normal . [facility] Comment on above: Performed By: #### C MP, ETOH, CBC ####[address] Bacteria [Presence] in Urine by AutomatedOrdered By: Gem Mcintosh on 11-06-2023 Bacteria Auto Ql (U) None seen [HPF] None Seen [facility] Barbiturates [Presence] in U rine by Screen methodOrdered By: Gem Mcintosh on 11-06-2023 Barbiturates Screen Ql (U) Negative Negative [facility] Benzodiazepines Screen Ql (U )Ordered By: Gem Mcintosh on 11-06-2023 Benzodiazepines Ql (U) Negative Negative [facility] Benzoylecgonine [Presence] i n Urine by Screen methodOrdered By: Gem Mcintosh on 11-06-2023 Benzoylecgonine Screen Ql (U) Negative Negative [facility] Bilirubin Test strip Ql (U)O rdered By: Gem Mcintosh on 11-06-2023 Bilirubin Ql (U) Negative Negative [facility] Bilirubin.total [Mass/volume ] in Serum or PlasmaOrdered By: Gem Mcintosh on 11-06-2023 Bilirubin [Mass/Vol] 0.6 mg/dL Normal 0.3-1.0 [facility] Comment on above: Performed By: #### C MP, ETOH, CBC ####[facility] [id number] [place] [id number] [facility] COVID CepheidOrdered By: Emigdio Mcintosh on 11-06-2023 SARS-CoV-2 (COVID-19) Ab IA Ql Negative Negative [facility] Comment on above: This is a duplicate Cepheid Xpert Xpress CoV-2/Flu/RSV Plus RNA by RT-PCR result to be used for statistical tracking purpose only. SARS-CoV-2 (COVID-19) RNA ARAVIND+probe Ql (Unsp spec) [facility] COVID-19 / Flu A/B / RSV [...] or Cepheid Disclaimer revoked sooner. PERFORMED BY: [facility] [address] [facility] [place] [address] PATHOLOGIST [employer]FFIC MANAGER DIMAS BUCKLEY M.D. Normal [facility] Comment on above: Performed By: #### C [id number] FLU RSV, CEPHEID NEG ####[facility] [id number] [place] [address] [place] Calcium [Mass/volume] in Ser um or PlasmaOrdered By: Gem Mcintosh on 11-06-2023 Calcium [Mass/Vol] 9.0 mg/dL Normal 8.6-10.3 [facility] Comment on above: Performed By: #### C MP, ETOH, CBC ####[facility] [address] [place] [address] [place] Cannabinoids [Presence] in U rine by Screen methodOrdered By: Gem Mcintosh on 11-06-2023 Cannabinoids Screen Ql (U) Negative Negative [facility] Comment on above: These are unconfirme d results and should not be used for legal purposes. Drug Cut-Off Concentration: AMPH 1000 ng/mL WILLIAM 200 ng/mL SALIMA 200 ng/mL COCM 300 ng/mL OP 300 ng/mL PCP 25 ng/mL THC 20 ng/mL Carbon dioxide, total [Moles /volume] in Serum or PlasmaOrdered By: Gem Mcintosh on 11-06-2023 CO2 [Moles/Vol] 29.4 mmol/L Normal 21.0-31.0 [facility] Comment on above: Performed By: #### C MP, ETOH, CBC ####[facility] Cepheid COVID PCR Negativeon 11-06-2023 SARS-CoV-2 (COVID-19) RNA ARAVIND+probe Ql (Unsp spec) Negative Normal Negative [facility] Comment on above: Result Comment: This is a duplicate Cepheid Xpert Xpress CoV-2/Flu/RSV Plus RNA by RT-PCR result to be used for statistical tracking purpose only. PERFORMED BY: [facility] [address] [place] [address] PATHOLOGIST [employer]FF[employer] MANAGER DIMAS BUCKLEY M.D. Performed By: #### C OVID19 FLU RSV, CEPHEID NEG ####[place] [id number] [address] Chloride [Moles/volume] in S seamus or PlasmaOrdered By: Gem Mcintosh on 11-06-2023 Chloride [Moles/Vol] 102 mmol/L Normal 98-107 [facility] Comment on above: Performed By: #### C MP, ETOH, CBC ####[place] [address] [address] Color of Urine by AutoOrdere d By: Gem Mcintosh on 11-06-2023 Color (U) Yellow Normal Yellow [facility] Comment on above: Order Comment: Name Collection Type:: Clean-Voided Midstream Performed By: #### U RDS, ADDONUAPLUS #### [facility] [address] Complete Blood Count Auto Di ffon 11-06-2023 Mean Corpuscular HGB Conc 33.8 g/dL Normal 32.5-35.6 [facility] Comment on above: Performed By: #### C MP, ETOH, CBC ####[place] [address] [place] [address] [facility] Monocytes/100 WBC (Bld) 16.55 % Normal 0.00-20.00 [facility] Comment on above: Performed By: #### C MP, ETOH, CBC ####[place] [address] [place] [address] [facility] NRBC% 0.1 /100{WBC} Normal 0-0.5 [facility] Comment on above: Performed By: #### C MP, ETOH, CBC ####[place] [address] [place] [address] [facility] Comprehensive Metabolic Pane du 11-06-2023 Albumin [Mass/Vol] 4.3 g/dL Normal 3.5-5.7 [facility] Comment on above: Performed By: #### C MP, ETOH, CBC ####[address] [address] [facility] Creatinine Clr Calc Pharmacy 99.02 Normal [facility] Comment on above: Result Comment: PERF ORMED BY: [facility] [address] [facility] [place] [address] PATHOLOGIST [employer] TRAFFIC MANAGER DIMAS BUCKLEY M.D. Performed By: #### C MP, ETOH, CBC ####[address] [address] [facility] GFR/1.73 sq M.predicted MDRD (S/P/Bld) [Vol rate/Area] mL/min/{1.73_m2} Normal [facility] Comment on above: Performed By: #### C MP, ETOH, CBC ####[address] [address] [facility] Creatinine [Mass/volume] in Serum or PlasmaOrdered By: Gem Mcintosh on 11-06-2023 Creatinine [Mass/Vol] 0.98 mg/dL Normal 0.70-1.30 [facility] Comment on above: Performed By: #### C MP, ETOH, CBC ####[place] [id number] [place] Dipstick and Microscopicon 0 11-06-2023 Appearance (U) Clear Normal Clear [facility] Comment on above: Order Comment: Name Collection Type:: Clean-Voided Midstream Performed By: #### U RDS, ADDONUAPLUS #### [place] [id number] [place] Bacteria,Urine None Seen Normal None Seen [facility] Comment on above: Order Comment: Name Collection Type:: Clean-Voided Midstream Performed By: #### U RDS, ADDONUAPLUS #### [place] [address] [place] Bilirubin,Urine Negative Normal Negative [facility] Comment on above: Order Comment: Name Collection Type:: Clean-Voided Midstream Performed By: #### U RDS, ADDONUAPLUS #### [address] Glucose Ql (U) Normal Normal Normal [facility] Comment on above: Order Comment: Name Collection Type:: Clean-Voided Midstream Performed By: #### U RDS, ADDONUAPLUS #### [place] [address] [place] Hyaline Casts,Urine 0-8 Normal 0-8 [facility] Comment on above: Order Comment: Name Collection Type:: Clean-Voided Midstream Result Comment: PERF ORMED BY: [place] [address] PATHOLOGIST [employer] TRAFF[employer] MANAGER DIMAS BUCKLEY M.D. Performed By: #### U RDS, ADDONUAPLUS #### [address] Ketones Ql (U) Trace High Negative [facility] Comment on above: Order Comment: Name Collection Type:: Clean-Voided Midstream Performed By: #### U RDS, ADDONUAPLUS #### [place] [id number] [facility] Leukocyte esterase Test strip Ql (U) Negative Normal Negative [facility] Comment on above: Order Comment: Name Collection Type:: Clean-Voided Midstream Performed By: #### U RDS, ADDONUAPLUS #### [place] [address] [place] Nitrite,Urine Negative Normal Negative [facility] Comment on above: Order Comment: Name Collection Type:: Clean-Voided Midstream Performed By: #### U RDS, ADDONUAPLUS #### [place] [address] [place] Occult Blood,Urine Negative Normal Negative [facility] Comment on above: Order Comment: Name Collection Type:: Clean-Voided Midstream Result Comment: PERF ORMED BY: [place] [address] PATHOLOGIST [employer] TRAFFIC MANAGER DIMAS BUCKLEY M.D. Performed By: #### U RDS, ADDONUAPLUS #### [place] [address] [place] RBC,Urine 1-2 Normal 0-4 [facility] Comment on above: Order Comment: Name Collection Type:: Clean-Voided Midstream Performed By: #### U RDS, ADDONUAPLUS #### [place] [address] [place] Specificy [place],Urine 1.017 Normal 1.001-1.030 [facility] Comment on above: Order Comment: Name Collection Type:: Clean-Voided Midstream Performed By: #### U RDS, ADDONUAPLUS #### [place] [address] [place] Squamous Epithelial Cell,Urine 1-2 Normal 0-2 [facility] Comment on above: Order Comment: Name Collection Type:: Clean-Voided Midstream Performed By: #### U RDS, ADDONUAPLUS #### [place] [address] [place] Urobilinogen,Urine Normal Normal Normal [facility] Comment on above: Order Comment: Name Collection Type:: Clean-Voided Midstream Performed By: #### U RDS, ADDONUAPLUS #### [place] [address] [place] WBC,Urine 1-2 Normal 0-4 [facility] Comment on above: Order Comment: Name Collection Type:: Clean-Voided Midstream Performed By: #### U RDS, ADDONUAPLUS #### [place] [address] [place] Drug Screen,Urineon 11-06-19 24 Amphetamine Screen,Urine Negative Normal Negative [facility] Comment on above: Performed By: #### U RDS, ADDONUAPLUS #### [address] Barbiturate Screen,Urine Negative Normal Negative [facility] Comment on above: Performed By: #### U RDS, ADDONUAPLUS #### [address] Benzodiazepines Screen,Urine Negative Normal Negative [facility] Comment on above: Performed By: #### U RDS, ADDONUAPLUS #### [address] Cannabinoid Screen,Urine Negative Normal Negative [facility] Comment on above: Result Comment: Thes e are unconfirmed results and should not be used for legal purposes. Drug Cut-Off Concentration: AMPH 1000 ng/mL WILLIAM 200 ng/mL SALIMA 200 ng/mL COCM 300 ng/mL OP 300 ng/mL PCP 25 ng/mL THC 20 ng/mL PERFORMED BY: [place] [address] PATHOLOGIST PR[employer] TRAFFIC MANAGER DIMAS BUCKLEY M.D. Performed By: #### U RDS, ADDONUAPLUS #### [place] [address] [place] Cocaine Screen,Urine Negative Normal Negative [facility] Comment on above: Performed By: #### U RDS, ADDONUAPLUS #### [place] [address] [place] Opiate Screen,Urine Negative Normal Negative [facility] Comment on above: Performed By: #### U RDS, ADDONUAPLUS #### [place] [address] [place] Phencyclidine Screen,Urine Negative Normal Negative [facility] Comment on above: Performed By: #### U RDS, ADDONUAPLUS #### [facility] [address] [place] [id number] [facility] Erythrocyte distribution wid th [Ratio] by Automated countOrdered By: Gem Mcintosh on 11-06-2023 Erythrocyte distribution width (RBC) [Ratio] 13.6 % Normal 12.0-14.8 [facility] Comment on above: Performed By: #### C MP, ETOH, CBC ####[facility] Erythrocytes [#/area] in Uri ne sediment by Automated countOrdered By: Gem Mcintosh on 11-06-2023 RBC Auto (Urine sed) [#/Area] 1-2 [HPF] 0-4 [facility] Erythrocytes [#/volume] in B lood by Automated countOrdered By: Gem Mcintosh on 11-06-2023 RBC (Bld) [#/Vol] 4.61 10*6/uL Normal 3.90-5.60 [facility] Comment on above: Performed By: #### C MP, ETOH, CBC ####[facility]1111 [place] [id number] [facility] Ethanol [Mass/volume] in Ser um or PlasmaOrdered By: Gem Mcintosh on 11-06-2023 Ethanol [Mass/Vol] mg/dL Normal [facility] Comment on above: Performed By: #### C MP, ETOH, CBC ####[place] [address] [place] [id number] [facility] Ethanol [Mass/Vol] TNP [facility] Comment on above: Test not performed Ethyl Alcohol Profileon 10-22 Percent Ethanol Not performed Normal [facility] Comment on above: Result Comment: PERF ORMED BY: [facility] [address] [place] [id number] PATHOLOGIST PR[employer] TRAFFIC MANAGER DIMAS BUCKLEY M.D. Performed By: #### C MP, ETOH, CBC ####[place] [address] [place] [id number] [facility] Glucose [Mass/volume] in Ser um or PlasmaOrdered By: Gem Mcintosh on 11-06-2023 Glucose [Mass/Vol] 101 mg/dL High 70-100 [facility] Comment on above: ADA recommended refe rence rangeRandom Glucose Reference Range is dependent on time and content of last meal. Glucose of more than 200 mg/dL in a nonstressed, ambulatory subject supports the diagnosis of Diabetes Mellitus. Result Comment: [place] om Glucose Reference Range is dependent on time and content of last meal. Glucose of more than 200 mg/dL in a nonstressed, ambulatory subject supports the diagnosis of Diabetes Mellitus. ADA recommended reference range Performed By: #### C MP, ETOH, CBC ####[facility] [id number] [place] [id number] [facility] Hematocrit [Volume Fraction] of Blood by Automated countOrdered By: Gem Mcintosh on 11-06-2023 Hematocrit (Bld) [Volume fraction] 42.2 % Normal 38.8-50.0 [facility] Comment on above: Performed By: #### C MP, ETOH, CBC ####[place] [address] [place] [id number] [facility] Hemoglobin [Mass/volume] in BloodOrdered By: Gem Mcintosh on 11-06-2023 Hemoglobin (Bld) [Mass/Vol] 14.2 g/dL Normal 13.0-17.0 [facility] Comment on above: Performed By: #### C MP, ETOH, CBC ####[facility] Irp[address] [place] [id number] [facility] Ketones Auto test strip (U) [Mass/Vol]Ordered By: Gem Mcintosh on 11-06-2023 Ketones (U) [Mass/Vol] Trace High Negative [facility] - UrinalysisOrder ed By: Gem Mcintosh on 11-06-2023 Hyaline casts LM Ql (Urine sed) 0-8 [LPF] 0-8 [facility] Leukocytes [#/area] in Urine sediment by Automated countOrdered By: Gem Mcintosh on 11-06-2023 WBC Auto (Urine sed) [#/Area] 1-2 [HPF] 0-4 [facility] Leukocytes [#/volume] correc nicko for nucleated erythrocytes in Blood by Automated counOrdered By: Gem Mcintosh on 11-06-2023 WBC corrected for nucl RBC Auto (Bld) [#/Vol] 13.5 10*3/uL High 4.1-10.5 [facility] Leukocytes [#/volume] in Blo od by Automated countOrdered By: Gem Mcintosh on 11-06-2023 WBC (Bld) [#/Vol] 13.5 10*3/uL High 4.1-10.5 [facility] Comment on above: Performed By: #### C MP, ETOH, CBC ####[place] [id number] [facility] Lymphocytes [#/volume] in Bl ood by Automated countOrdered By: Gem Mcintosh on 11-06-2023 Lymphocytes (Bld) [#/Vol] 2.9 10*3/uL Normal 1.00-4.8 [facility] Comment on above: Performed By: #### C MP, ETOH, CBC ####[place] [id number] [facility] Lymphocytes/100 leukocytes i n Blood by Automated countOrdered By: Gem Mcintosh on 11-06-2023 Lymphocytes/100 WBC (Bld) 21.6 % Normal . [facility] Comment on above: Performed By: #### C MP, ETOH, CBC ####[place] [id number] [facility] MCH [Entitic mass] by Automa nicko countOrdered By: Gem Mcintosh on 11-06-2023 MCH (RBC) [Entitic mass] 30.9 pg Normal 27.5-35.2 [facility] Comment on above: Performed By: #### C MP, ETOH, CBC ####[place] [id number] [facility] MCHC Auto (RBC) [Mass/Vol]Or dered By: Gem Mcintosh on 11-06-2023 MCHC (RBC) [Mass/Vol] 33.8 g/dL 32.5-35.6 [facility] MCV [Entitic volume] by Auto mated countOrdered By: Gem Mcintosh on 11-06-2023 MCV (RBC) [Entitic vol] 91.6 fL Normal 83.5-101 F [facility] Comment on above: Performed By: #### C MP, ETOH, CBC ####[facility] Monocyte distribution width [Entitic volume] in Blood by AutomatedOrdered By: Gem Mcintosh on 11-06-2023 Monocyte distribution width Auto (Bld) [Entitic vol] 16.55 % 0.00-20.00 [facility] Neutrophils [#/volume] in Bl ood by Automated countOrdered By: Gem Mcintosh on 11-06-2023 Neutrophils (Bld) [#/Vol] 9.0 10*3/uL High 1.8-7.7 [facility] Comment on above: Performed By: #### C MP, ETOH, CBC ####[facility] Nitrite Test strip Ql (U)Ord ered By: Gem Mcintosh on 11-06-2023 Nitrite Ql (U) Negative Negative [facility] No Panel InformationOrdered By: Gem Mcintosh on 11-06-2023 Estimated GFR (CKD-EPI) > 60.0 mL/Min [facility] Creatinine Clearance (Chem 99.02 [facility] Nucleated erythrocytes [Pres ence] in Blood by Automated countOrdered By: Gem Mcintosh on 11-06-2023 Nucleated RBC Auto Ql (Bld) 0.1 /100{WBC} 0-0.5 [facility] Opiates [Presence] in Urine by Screen methodOrdered By: Gem Mcintosh on 11-06-2023 Opiates Screen Ql (U) Negative Negative [facility] Phencyclidine Screen Ql (U)O rdered By: Gem Mcintosh on 11-06-2023 Phencyclidine Ql (U) Negative Negative [facility] Platelet mean volume [Entiti c volume] in Blood by Automated countOrdered By: Gem Mcintosh on 11-06-2023 Platelet mean volume (Bld) [Entitic vol] 8.3 fL Normal 6.6-10.1 [facility] Comment on above: Performed By: #### C MP, ETOH, CBC ####[place] [address] Platelets [#/volume] in Bloo d by Automated countOrdered By: Gem cMintosh on 11-06-2023 Platelets (Bld) [#/Vol] 350 10*3/uL Normal 150-450 [facility] Comment on above: Performed By: #### C MP, ETOH, CBC ####[address] Potassium [Moles/volume] in Serum or PlasmaOrdered By: Gem Mcintosh on 11-06-2023 Potassium [Moles/Vol] 4.2 mmol/L Normal 3.5-5.1 [facility] Comment on above: Performed By: #### C MP, ETOH, CBC ####[address] Protein [Mass/volume] in Ser um or PlasmaOrdered By: Gem Mcintosh on 11-06-2023 Protein [Mass/Vol] 6.7 g/dL Normal 6.4-8.9 [facility] Comment on above: Performed By: #### C MP, ETOH, CBC ####[address] Serum globulin measurement b y calculation (mass/volume)Ordered By: Gem Mcintosh on 11-06-2023 Globulin (S) [Mass/Vol] 2.4 g/dL Normal F [facility] Comment on above: Performed By: #### C MP, ETOH, CBC ####[address] Serum or plasma albumin/glob ulin mass ratioOrdered By: Gem Mcintosh on 11-06-2023 Albumin/Globulin [Mass ratio] 1.8 {ratio} Normal [facility] Comment on above: Performed By: #### C MP, ETOH, CBC ####[address] Serum or plasma anion gap de terminationOrdered By: Gem Mcintosh on 11-06-2023 Anion gap [Moles/Vol] 9.8 mmol/L Normal 6.0-15.0 [facility] Comment on above: Performed By: #### C MP, ETOH, CBC ####[facility] [id number] Sodium [Moles/volume] in Ser um or PlasmaOrdered By: Gem Mcintosh on 11-06-2023 Sodium [Moles/Vol] 137 mmol/L Normal 136-145 [facility] Comment on above: Performed By: #### C MP, ETOH, CBC ####[facility] [id number] Specific gravity Auto test s trip (U) [Rel density]Ordered By: Gem Mcintosh on 11-06-2023 Specific gravity (U) [Rel density] 1.017 1.001-1.030 [facility] Urea nitrogen [Mass/volume] in Serum or PlasmaOrdered By: Gem Mcintosh on 11-06-2023 Urea nitrogen [Mass/Vol] 9 mg/dL Normal 7-25 [facility] Comment on above: Performed By: #### C MP, ETOH, CBC ####[facility] [id number] [address] Urine clarity by refractomet ry automatedOrdered By: Gem Mcintosh on 11-06-2023 Clarity Refractometry automated (U) Clear Clear [facility] Urine glucose measurement by automated test strip (mass/volume)Ordered By: Gem Mcintosh on 11-06-2023 Glucose Auto test strip (U) [Mass/Vol] Normal mg/dL Normal [facility] Urine hemoglobin detection b y automated test stripOrdered By: Gem Mcintosh on 11-06-2023 Hemoglobin Auto test strip Ql (U) Negative Negative [facility] Urine leukocyte esterase det ection by automated test stripOrdered By: Gem Mcintosh on 11-06-2023 Leukocyte esterase Auto test strip Ql (U) Negative Negative [facility] Urine pH measurement by auto mated test stripOrdered By: Gem Mcintosh on 11-06-2023 pH (U) 6.0 [pH] Normal 5.0-9.0 [facility] Comment on above: Order Comment: Name Collection Type:: Clean-Voided Midstream Performed By: #### U RDS, ADDONUAPLUS #### [facility] [address] Urine protein measurement by automated test strip (mass/volume)Ordered By: Gem Mcintosh on 11-06-2023 Protein (U) [Mass/Vol] 30 mg/dL High Negative Fi [facility] Comment on above: Order Comment: Name Collection Type:: Clean-Voided Midstream Performed By: #### U RDS, ADDONUAPLUS #### [facility] [address] [place] [address] Urobilinogen Auto test strip (U) [Mass/Vol]Ordered By: Gem Mcintosh on 11-06-2023 Urobilinogen (U) [Mass/Vol] Normal mg/dL Normal [facility] XR chest 2V*on 11-06-2023 XR chest 2V* [facility] [place] [address] [place] [address] XRay Report Signed Patient: Juan Carlos Noguera MR#: [id number] : 1970 Acct:[id number] Age/Sex: 53 / M ADM Date: 11/06/23 Loc: ER Room: Type: [facility] ER Attending Dr: Copies to: Gem [...] Ophelia Parra M.D.11/06/2023 1:04 PM Dictation Location: [place] [address] Transcribed By: KATRINA 11/06/23 1304 Dictated By: Ophelia Parra MD 11/06/23 1304 Signed By: 11/06/23 1304 Normal [facility] Heart and Vascular Office/Cl inic [...] exam. On Coreg, Entresto. 3. 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 [...] History Heart disease: Father. Normal [facility] Comment on above: Result Comment: Elec tronically Signed By: Antonia RUBIO, Tylor Potter\.br\Date and Time Signed: 10/07/23 14:59 EDT Coding Summary.on 09-16-2023 Coding Summary. OMIERgfd63ROy5dCf+PG hl YWQ+AC4LGEXiW24jrGSbbM 9nQ6LSQHsQEcfbSAYAYAsN EcHwaiRzQO9wnGCbLQMl IC8+ZA3dPHMsCrtluAHtb7 E8vZG3W61ttr0dPVqwcOW1 EKNoRdYawojlb9bsbPr8XN cuNmluOyBt GTWzdI54XXI1xP75Pa74rL RchXKxl5fisXd0IiGgDWNz XSA9yZepAAcfo8MdNFAjB7 0wwRJwq6U1 HXKrzEogsLHnZkDtsCH1eG 7mDOypoecmv5iqfdduGlg9 cb63rLMxb8V7eZD1F7Drox F3VFGffOBv ZszvgPYNaP5wkthdq3yodk efOuEbSPEsSOm9YYh8WKWd zPxrOrCfRE58LZO0TTEtnx MwF9AdJJLt kQrpDsA9g6G1Tm7KQ1NZVe hlR3NEMCYALOfvdWS+PC90 xv26L9DdRzptLgo3ZPMbVE A3mBQ6jK0u LKZoPUnot4E6sIU1G9Qbvh Jhzm1nj0wnFJDuUGfoJ02g gFTju2B7NSGitIC5QRHwoV efUyJtkZ70 Oyc+DIYmrAaat3AzWfodf1 yqc5mluJy5XferAFWfvuJt nJgyTLG1o6OsPf4rHTNpvV S3dXV5wX3i CdMnTaR8SZlnP341CtGliO HhAqmqG82nM9LnfXY+PHRy Opu5CEYxnOezNI2cR0UiPE RpbmctbGVm bFacYN0tAYZtyzvkBHMhrO 8hWTInJ8i3NjUsKtM0EFom A0MzFENlxoqyMz12wQ0jRh PrDwH2DJrk K7ZdetQ6LLLxrGPmKPevCZ W9E02nz5A2PKKfQBEgDJG9 bME3fO2tpOzulflykWKmcR sgdmVydGlj CXiqKEjtY506KBJobMumNv NvZGluZyBEYXRlOiAgMDYv MjUvMjAyNDwvdGQ+PHRkIH K3hUasZVHc tFOkAQdvAf1muUunrQtjYS 8sCAHwhqpxYGQzmA5qXKVu iFQhwWelCM6xXUAmupwan9 05BlSlDRH3 BETkqZEnQ9KtzL7sKuFiLM RkPYLkV4ImzHCvJDcuG139 QCwcMhI0QSRamwRiH0QiXH FsaWduOiB0 l8Y8Wv0Aw7DuhumaN3HcjX CpJuSvGeaoZXm0D9DnSjop dHI+QW89UZZjXJ86XLh1YG W1lCocJEjv BWNqL5KxsU8mPdMiTZQyBD RkOyc+PHRhYmxlIHdpZHRo COwbTTTeKtBhpOycGA4kRo 9yZGVyLWNv rVrnwZIyUtYms0ueQASjKZ tnRP9nyZgqV4EfcCU7SZBf d0u0Xy94H10oI8KxrPJ+PG CslZO4lGZ5 dA0kAmArFaA8IGcuA652Wy UczHJzQdyho5blv8kbcTv7 JpG4DJPrwvUreCprZXN1j8 EpKi55P75a IHdpZHRoPSIxNSUiIHZhbG qvyp7wcW1lNk2+PGNvbCB3 fFQ5tB6xIvXmJiE6CJouF7 49InRvcCIv Jecya8aqq7qpfLz7OrQkOX XrslUpnHbgGJP2b6BkZn42 H7JjtWeej5ExWzf4dd73qE Myi5X3bCA1 P2GyPYCwdakhlRPvtExhSQ 9vGWCwsmxtCFZdwQ2wDFNo E7q2RfWwOkA9JKjsU0Biak G4SCWngVDb GEJxjEXTzE9tywdrd5duob noNzMcCXYdOMi0DJj4RTBr fEpvKaGwSVK9OlG1VWD1yZ XtfA6bjHzl iyrprM2eYhr+QWF2rDGoeS OKWA3kMtjsiSI+PHRkIHN0 xMthWMbqNWIynV6bBWOaX4 f2MvIhWpA5 FFooZ6UxjpY0ORQntNOkDY UimONHsZ9cpfmts9ievlsk MjOeOXZmPWu5ZSv7WCUflV duOiBsZWZ0 YmR3ZHT9pTEbgP4swVkjvu aquD1zKdp+QmlydGggRGF0 UOx5U7HcPnx3TWXcvIryNX 0ncGFkZGlu Wo5iuOayzIuuSR5tFWXcvp sei652InHik7zlAZKhxACg NEjsITZ3T77dh9M5EALhVL OuLBZ7bIR9 gG9xxQhapytlgSFjpCmauh IbvBbcDMjpWIngT146BVXq dIipIxJlYOj3E9UsDfk5CA YycGdqSW3t vYRtQNzpSf1bbOdbtBiyIJ 7uIQBvcovcy915UxLfr0if LPAifJSsYLjxZCM5P05tw3 B2PHPkYJFq REM7dIU6nR3mePppskzqpR VmdDsgdmVydGljYWwtYWxp P706PBVeoZdwMhXwnBl7E3 ZdUjv0EPWn uTolAF9phBLbYByjDa7bmE wdeVgkGI5aOEQobbvjr993 OtGca1ciBSFzxCYaSIghDV E6G49bo2P7 FCFvQBCrTWU6pKW7nL8kiV lnbjogbGVmdDsgdmVydGlj GZiqONtkF437LQCjiOjlYl BhdGllbnQg AUwjGUi0T0NySdavwOD+PC 65WXMmBY62tEFuvBMuz4qg kMo4HhQaRQSfKVA4zOxdRR amu3FrVJEq K05ahQCri1W4RQYefZdwgU FwGjSexOA6iY6gQVlirvan v5nthxpeOkywu8tyek75bL 37Y17hOJok ZHRoPSIzMCUiIHZhbGlnbj 8iwQ4mXk5+GXCzaOE9gJH8 bG6jXODfRmB9ICkbP454Iq RvcCIvPjxj w6olw7kubOs9HoD0XGHjjp XavCcvCJZ9x2DxCh86M78a IHdpZHRoPSIyMCUiIHZhbG eciv9hqS4z Ii8+EESgoRJ7iIB2gN4zIr BgZfG0EAuwH045HiCpgQVb OaguT20kN8NizAZ+PHRyPj k8DEGofVco BW4abUTgVSlfCf0hEFS0Oz AtEmMjGRshI9QkKRNesxmi sfiviXF3ZOOiALEubJ67Xd 9udDogMTBw xDFYgB7qkftac4pkmnimWa KcRTOfZZz2SMa7AFHbuZav QqEfKFA0BqX0GDX5eISfcU 1hbGlnbjog sW0rZ2SjZFQsodlhEx91lE 4hYbPtTyM0VXffPdd+Sk9S ZGUQBQCOQJsMVpJDPQ81GA 78tIKpg6T6 bLF3G4PkUQTkkakfczfboK C9KZPzNWUjbT25nXLnISds Vi4cw2S2n073PUTjYJAqqV 62Xa9cgDow JANppYVMmQ5ikwuok5chwd dqMzOzQCQfQKc4ISu9EXLn gOhvQlIzOEL0JyZ8LGO1rN PujB6jhNna tdjiwJ1yVbv+MDcvMjcvMT y0CSirjMN+WDViEOZ2oKdw LEzvINGcyW0mAUGdS9r4Hh LqAbV1BDar K2ZvWDAxemolJw25zT2eTl TqZoX1HMjrV1QzpnK1IWEs pDGeADomBBR1X81zp1Y0IL MwMDAwMDA7 dOP9aC1egXcrhxssgKAhfS funpKbfLseXBstERpeQ946 XAFahAeyJwE2DDjqATVpDW 37HT83xLGz e6G5eGL9K8CiISOfacspsa sibRC3IIQjSBFmqM13eAKr NLohLv5qj0A0o709HMIdHP UcfC00Ka4s rYncCTArlLTFvG9zhzime1 uvqwuoIgCeQJPuITc4KOo2 DVTkcWjlUcYxTGN8UhY0TF Z0nRItqZ2z gGzyygtrcA2aQch+TWFsZT wvdGQ+JVRqDUM2dCqbEIhw SAYllK0eLPYfQ6c2MyToTf B6JCefB3Dx CBOqoagcPa80nA5wUiTcCo F1REetM3PbwgC8AINxwNJt BBmhFVR7K94zn1M7GXUhCS LmJNQ0rSB7 yE5wtAyzihbsxUJgmBpddf FryTloXZpuDZikV388BFTw aTapMh92uKAtwCyrsbN2E6 RkPjwvdHI+ MY82MTXbQJ76nEMfiUTyz8 rypVd2PxZpHBZfRHA9iGjp BRwlb4LcAJBqD32yvUMmz3 S8DRQwyQbu oJSnTpAydFF0vZ3oHFxvej isx3hsfcbbSdaem6rezx48 xO69Q15wGYieMQNcTZAhTI UiIHZhbGln cw9qsI2pMe2+GUNigQY7fN X6pX1cKuVxKaJ2TZlbQ138 WjQxpVHiRwwnu0cix2mpwT v5HtJcRNIf rfOtdTlpRRH1f4VyNl54T5 9sIHdpZHRoPSIyMCUiIHZh aJxcns8kyM3lIg5+PC9jb2 uwrx50bM10 dHI+KZCrBHD1hZpzGAmdMN MvyV8gKWgnNsC1CPCuWfYw dB56rNZaPJxwSj8odUkneF ljUW8jKLZj cemht207DpBwv5beCXIytR LlMYltYWB3M53oo3B2BUTb OPVcPGK3iZT3yS7saXmyif ogbGVmdDsg gkYnaGaqAGuyTUhzI844PZ ZbmBsvEeVdzZXgU7pfnaHR GW8sQklqoYX+BFBcEPH5aQ xlPSdwYWRk pT1kJGHfO0s9BfOiDxB0EF bmX0IwhsZ8PHNncANjORPn mRIZsA3qdgkll5ehtrbdTj AwMDAwMDt0 RLu9QTNnnSnnAyXvOCM3Id C5EIW1kDCztN7paRetcmdq eC5yXmj+RklOOjwvdGQ+PH AaHON4jXms AFxdCVShiY5lYSPmV9j9At VjFuX8KChlP4EqjtP4UAAz iUJbOEYixHVUvH4iorjls3 xvcjogIzAw RFFkBJv9UZr8JPRgiKfhIi WrCTD7XuA6IRI4uSTrzO0t dSbjckptfA8fEmp+TVJOOj wvdGQ+PHRk OPH3eMhgDHseRKAnmN5gRA ZdK6d3NfPzGuI8XZlnT1Qb bfY8BIKvtQDuZUZozIWSwE 7mkkfss7lg juohVnUbUPBtMJi6GEf3GA ShrEtmUmOfSHW9RzZ3QJI9 pDEioJ0hbFpaxugbqY6gIj c+ZTX0CED8 BX87UD02U8TvUugljRKnyJ U+PHRhYmxlIHdpZHRoPScx CEPjAnLsoIhtSO1lDy8nLZ VyLWNvbGxh uYRoTjWhu1gjH (more content not included)... [facility] Physician Orderon 08-12-2023 Physician Order [id number]#1.0 0TIFF [facility] Consent for Treatmenton 07-23 Consent for Treatment [id number]#1.0 0TIFF Dara Marie [facility] Heart and Vascular Office/Cl inic Noteon 08-11-2023 [...] 6.25 mg twice daily. 3. 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 [...] Use:., 07/25/2023 Family History Heart disease: Father. [facility] Comment on above: Result Comment: Elec tronically Signed By: Antonia RUBIO, Tylor Potter\.br\Date and Time Signed: 08/11/23 15:24 EDT Cardiovascular Reporton 07-22 Cardiovascular Report [id number] [id number]#1. 00TIFF [facility] Consent for Anesthesiaon Consent for Anesthesia [id number]#1. 00TIFF [facility] Consent for Procedure/Surger yon 08-04-2023 Consent for Procedure/Surgery [id number]#1. 00TIFF [facility] Discharge Instructionson Discharge Instructions [id number]#1. 00TIFF Normal [facility] Cardiovascular Reporton Cardiovascular Report [id number] 4050 [id number]#1. 00TIFF Normal [facility] Consent for Treatmenton Consent for Treatment [id number] 4050 [id number]#1.0 0TIFF Normal [facility] Inpatient Clinical Summaryon 07-31-2023 Inpatient Clinical Summary [place] [id number] Clinical Summary Person Information: Name: JUAN CARLOS NOGUERA Age: 52 Years : 1970 Sex: Male PCP: MROENO BARRERA MD Marital Status: Race: White Ethnicity: Non- or Language: Brazilian Visit Id: Visit Reason: I48.0 Speciality: Acuity: Enc Type: Ambulatory/Same Day Surgery Med Service: Surgery Arrival: 07/31/2023 06:31:37 Discharge: Dispo Type: Address: [address] [place] [address] [phone] Provider Notes: Diagnosis: Problems Active Smoker Smoking [...] Knight MD Follow up: With: Address: When: [address] [address] [phone] [facility] () 08/11/2023 3:00 PM Type Location Start [facility] Surgery [facility] Surgical Services 07/31/2023 7:30 AM 07/31/2023 8:30 AM Confirmed Cardiology Follow Up (FT) [facility] [place] 10/31/2023 1:00 PM 10/31/2023 1:15 PM Confirmed Patient Education Information: CV - Cardioversion (CUSTOM) [facility] Inpatient Patient Summaryon 07-31-2023 Inpatient Patient Summary [place] [id number] Patient Discharge Instructions PERSON INFORMATION Name: JUAN [...] results: None Follow up: With: Address: When: [facility] [address] [address] [phone] Business (1) 08/11/2023 3:00 PM In the event that this physician does not participate in your insurance network, please consult with your insurance company to find a nearby participating provider. Type Location Start [facility] FT Marie Gopal Surgical Services 07/31/2023 7:30 AM 07/31/2023 8:30 AM Confirmed Cardiology Follow Up (FT) [facility] [place] 10/31/2023 1:00 PM 10/31/2023 1:15 PM Confirmed [...] Pharmacy Information: Comment: PATIENT EDUCATION INFORMATION Instructions: [place], [place] CARDIOVERSION AFTER THE PROCEDURE: DIET: ? [...] event you are unable to reach your doughmaker, please call Ivanna at [phone] and the machine feed operator will assist you in contacting your [...] (more content not included)... Normal [facility] Patient Education - Texton 0 07-31-2023 Patient Education - Text [place], [place] CARDIOVERSION AFTER THE PROCEDURE: DIET: ? [...] event you are unable to reach your doughmaker, please call Ivanna at [phone] and the machine feed operator will assist you in contacting your [...] turn cold or blue. Normal [facility] Progress Note-Physicianon Progress Note-Physician Patient: JUAN [...] BID, # 60 tab(s), Refills(s) 3, Pharmacy: [facility]/pharmacy #[id number], 178, cm, 05/02/23 13:12:00 EST, Height/Length Dosing, 102, kg, 05/02/23 13:12:00 EST, Weight Dosing Entresto 24 mg-26 mg oral tablet: 1 tab(s), Oral, BID, 60 tab(s), Refill(s) 6, [facility]/pharmacy #[id number], 178, cm,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 l (Bld)on 11-23-2021 BASOPHIL ABSOLUTE COUNT 0.12 x10*3/uL High 0.0-0.1 [facility] Comment on above: Performed By: #### 5 7021-8, 06884-1, 97636-6 #### CLINICAL LABORATORY [address] Basophils/100 WBC (Bld) 0.8 % Normal 0.0-1.1 [facility] Comment on above: Performed By: #### 5 7021-8, 00182-6, 88595-9 #### CLINICAL LABORATORY [address] EOS ABSOLUTE COUNT 0.50 x10*3/uL Normal 0.0-0.5 [facility] Comment on above: Performed By: #### 5 7021-8, 81516-3, 31862-3 #### CLINICAL LABORATORY [address] Eosinophils/100 WBC (Bld) 3.2 % Normal 0.0-6.0 [facility] Comment on above: Performed By: #### 5 7021-8, 54513-2, 61997-2 #### CLINICAL LABORATORY [address] Hematocrit (Bld) [Volume fraction] 37.8 % Normal 35.0-49.0 [facility] Comment on above: Performed By: #### 5 7021-8, 42734-1, 57123-8 #### CLINICAL LABORATORY [address] Hemoglobin (Bld) [Mass/Vol] 12.9 g/dL Normal 11.5-17.0 [facility] Comment on above: Performed By: #### 5 7021-8, 47078-4, 83644-4 #### CLINICAL LABORATORY [address] IMMATURE GRAN ABSOLUTE COUNT 0.04 x10*3/uL Normal 0.0-0.5 [facility] Comment on above: Performed By: #### 5 7021-8, 37444-6, 56713-5 #### CLINICAL LABORATORY [address] Immature granulocytes/100 WBC (Bld) 0.3 % Normal 0.0-2.99 [facility] Comment on above: Performed By: #### 5 7021-8, 55261-6, 55012-2 #### CLINICAL LABORATORY [address] LYMPHOCYTE ABSOLUTE COUNT 3.69 x10*3/uL High 0.5-3.2 [facility] Comment on above: Performed By: #### 5 70-8, 12806-7, 03211-1 #### CLINICAL LABORATORY [address] Lymphocytes/100 WBC (Bld) 23.9 % Normal 13.0-39.0 [facility] Comment on above: Performed By: #### 5 70-8, 75005-0, 71997-9 #### CLINICAL LABORATORY [address] MCH (RBC) [Entitic mass] 31.6 pg Normal 26.0-33.0 [facility] Comment on above: Performed By: #### 5 7021-8, 46336-7, 81465-6 #### CLINICAL LABORATORY [address] MCV (RBC) [Entitic vol] 92.6 fL Normal 81.0-98.0 [facility] Comment on above: Performed By: #### 5 7021-8, 22431-3, 42643-5 #### CLINICAL LABORATORY [address] MEAN CORPUSCULAR HGB CONC 34.1 g/dl Normal 31.0-35.0 [facility] Comment on above: Performed By: #### 5 7021-8, 70486-6, 34398-6 #### CLINICAL LABORATORY [address] [address] [facility] MONOCYTE ABSOLUTE COUNT 2.05 x10*3/uL High 0.0-1.0 [facility] Comment on above: Performed By: #### 5 7021-8, 52688-1, 53850-7 #### CLINICAL LABORATORY [address] [address] [facility] Monocytes/100 WBC (Bld) 13.3 % High 4.0-13.0 [facility] Comment on above: Performed By: #### 5 7021-8, 40265-4, 21255-5 #### CLINICAL LABORATORY [address] NEUTROPHIL COUNT ABSOLUTE 9.01 x10*3/uL High 1.5-6.2 [facility] Comment on above: Performed By: #### 5 7021-8, 01446-9, 20066-2 #### CLINICAL LABORATORY [address] Neutrophils/100 WBC (Bld) 58.5 % Normal 47.0-76.0 [facility] Comment on above: Performed By: #### 5 7021-8, 11230-1, 68695-1 #### CLINICAL LABORATORY [address] NUCLEATED RBC ABSOLUTE COUNT 0.00 x10*3/uL Normal [facility] Comment on above: Performed By: #### 5 7021-8, 35527-7, 35814-2 #### CLINICAL LABORATORY [address] Nucleated RBC/100 WBC (Bld) [Ratio] 0.0 % Normal [facility] Comment on above: Performed By: #### 5 7021-8, 41839-5, 23665-8 #### CLINICAL LABORATORY [place] [address] [facility] PLATELET COUNT 427 x10*3/uL High 150-400 [facility] Comment on above: Performed By: #### 5 7021-8, 68412-9, 32597-9 #### CLINICAL LABORATORY [place] [address] [facility] Platelet mean volume (Bld) [Entitic vol] 9.0 fL Normal 9.0-12.1 [facility] Comment on above: Performed By: #### 5 7021-8, 64088-5, 80416-6 #### CLINICAL LABORATORY [address] RED BLOOD COUNT 4.08 x10*6/uL Normal 3.8-6.0 [facility] Comment on above: Performed By: #### 5 7021-8, 99184-8, 70988-6 #### CLINICAL LABORATORY [address] RED CELL DISTRIBUTION WIDTH 46.7 fL Normal 36.7-49.4 [facility] Comment on above: Performed By: #### 5 7021-8, 78354-4, 74429-8 #### CLINICAL LABORATORY [address] WHITE BLOOD COUNT 15.41 X10*3/uL High 3.8-11.0 [facility] Comment on above: Performed By: #### 5 7021-8, 21572-4, 70026-1 #### CLINICAL LABORATORY [address] Differential panel (Body fld )on 11-23-2021 BANDS 0 % Normal 0-1 [facility] Comment on above: Performed By: #### 5 7021-8, 39780-9, 49376-1 #### CLINICAL LABORATORY [place] [address] [place] Basophils/100 WBC (Bld) 0 % Normal 0-1 [facility] Comment on above: Performed By: #### 5 7021-8, 76537-4, 49373-0 #### CLINICAL LABORATORY [address] [address] [place] Eosinophils/100 WBC (Bld) 3 % Normal 0-6 [facility] Comment on above: Performed By: #### 5 7021-8, 81272-3, 76276-6 #### CLINICAL LABORATORY [place] [address] [place] Lymphocytes/100 WBC (Bld) 24 % Low 38-46 [facility] Comment on above: Performed By: #### 5 7021-8, 44070-0, 11612-6 #### CLINICAL LABORATORY [address] Monocytes/100 WBC (Bld) 7 % Normal 2-[address] [facility] Comment on above: Performed By: #### 5 7021-8, 94815-5, 96062-3 #### CLINICAL LABORATORY [address] MYELOCYTE 1 % Normal [facility] Comment on above: Performed By: #### 5 7021-8, 31676-5, 65084-9 #### CLINICAL LABORATORY [address] Neutrophils/100 WBC (Bld) 62 % Normal 47-76 [facility] Comment on above: Performed By: #### 5 7021-8, 58935-9, 60626-4 #### CLINICAL LABORATORY [address] Variant lymphocytes/100 WBC (Bld) 3 % Normal [facility] Comment on above: Performed By: #### 5 7021-8, 68576-1, 76497-9 #### CLINICAL LABORATORY [address] Pathologist review of result son 11-23-2021 Pathologist review Armando (Unsp spec) [Interp] * Normal [facility] Comment on above: Result Comment: Agre e with reported results. Reviewed by ALP Performed By: #### 5 7021-8, 76711-8, 89510-3 #### CLINICAL LABORATORY [address] Physician Documentationon Physician Documentation [place] [address] Medical Records Department ED Physician Documentation Name: JUAN CARLOS NOGUERA Sr. Pt Type: DEP ER MR #: [id number] Room AND Bed: Date of : 1970 Date of Service: 11/23/21 Age: 51 Ordering Doctor: Sex: Male Family Doctor: Marie Mckenzie COSMETIC SURGEON Order #: Dictating Doctor: Florinda Guillory CNP [...] Blood Pres (more content not included)... Normal [facility] US Venous Duplex Uni Leg RTo n 11-23-2021 Venous Duplex Uni Leg RT [place] [address] Diagnostic Imaging Ultrasound Report Name: JUAN CARLOS NOGUERA Pt Type: EVELIA AMANDA MR #: [id number] Room & Bed: Date of : 1970 Date of Service: 11/23/21 Age: 51 Ordering Doctor: Florinda Guillory CNP Sex: Male Family Doctor: Marie Mckenzie COSMETIC SURGEON Order #: [id number] Dictating Doctor: Abisai Mchugh MD Admit Date: [...] are not the intended recipient, please contact [facility] at [phone] and destroy all copies of the original. Normal [facility] AMB Office Visit Internal Me don 10-08-2021 AMB Office Visit Internal Med [address] [address] Medical Records Department AMB Office Visit Internal Med Name: JUAN CARLOS NOGUERA Pt Type: DEP AMB MR #: [id number] Room AND Bed: Date of : 1970 [...] and colleagues, with an educational damian from [employer]. COVID-19 Patient Screening COVID-19 Screening Contact with COVID positive or high risk person(s): No COVID-19 Symptoms: No Physician History Physician Specialist Physician: Oswaldo Bonilla [facility] Medical History Anxiety disorder History of [...] concentrating, Denie (more content not included)... Normal [facility] Ambulatory AMB Office Visit Internal Me don 09-10-2021 AMB Office Visit Internal Med [place] [id number] Medical Records Department AMB Office Visit Internal Med Name: JUAN CARLOS NOGUERA Pt Type: DEP AMB MR #: [id number] Room AND Bed: Date of : 1970 [...] associated with ADD. He also wonders about [place] [facility] Marijuana program. Intake Intake Intake Have you [...] and colleagues, with an educational damian from [employer]. COVID-19 Patient Screening COVID-19 Screening Contact with [...] Denies headache(s) (more content not included)... Normal [facility] Ambulatory AMB Office Visit Internal Me don 06-11-2021 AMB Office Visit Internal Med [place] [address] Medical Records Department AMB Office Visit Internal Med Name: JUAN CARLOS NOGUERA Tenisha Pt Type: DEP AMB MR #: [id number] Room AND Bed: Date of : 1970 [...] and colleagues, with an educational damian from [employer]. COVID-19 Patient Screening COVID-19 Screening Contact with COVID positive or high risk person(s): No COVID-19 Symptoms: No Physician History Physician Specialist Physician: Oswaldo Bonilla [facility] Medical History Anxiety disorder History of [...] carbonated be (more content not included)... Normal [facility] Ambulatory AMB Office Visit Internal Me don 03-12-2021 AMB Office Visit Internal Med [place] [id number] Medical Records Department AMB Office Visit Internal Med Name: JUAN CARLOS NOGUERA Pt Type: DEP GIANLUCA MR #: [id number] Room AND Bed: Date of : 1970 Date of Service: 03/12/21 Age: 50 Ordering Doctor: Sex: Male Family Doctor: Diana Peoples MD Order #: Dictating Doctor: Marie Mckenzie COSMETIC SURGEON Admit Date: Referring Doctor: Other Doctor: Additional [...] he is on vacation from work between [place] and . In case he had side [...] Denies eas (more content not included)... Normal [facility] Ambulatory AMB Office Visit Internal Me don 02-12-2021 AMB Office Visit Internal Med [address] [address] Medical Records Department AMB Office Visit Internal Med Name: JUAN CARLOS NOGUERA Pt Type: DEP AMB MR #: [id number] Room AND Bed: Date of : 1970 [...] TM's normal (more content not included)... Normal [facility] Ambulatory BASIC METABOLIC PANELon 04-24 Anion gap [Moles/Vol] 10 mmol/L Normal 5-15 [facility] Comment on above: Performed By: #### L AB119 #### [place] [address] BUN/CREAT RATIO 12 (CALC) Normal 7.0-25.0 [facility] Comment on above: Performed By: #### L AB119 #### [place] [address] Calcium [Mass/Vol] 8.0 mg/dL Low 8.5-10.5 [facility] Comment on above: Performed By: #### L AB119 #### [place] [address] Chloride [Moles/Vol] 105 mmol/L Normal 96-[address] [facility] Comment on above: Performed By: #### L AB119 #### [place] [address] CO2 [Moles/Vol] 21 mmol/L Normal 19-32 [facility] Comment on above: Performed By: #### L AB119 #### [place] [address] Creatinine [Mass/Vol] 0.9 mg/dL Normal 0.5-1.4 [facility] Comment on above: Performed By: #### L AB119 #### [place] [address] ESTIMATED GFR 99 ML/MIN/1.73M2 Normal [facility] Comment on above: Result Comment: IF THE PATIENT IS , PLEASE MULTIPLY THIS BY 1.159. THIS RESULT HAS BEEN CALCULATED ASSUMING THE PATIENT IS NON- Performed By: #### L AB119 #### [place] [address] Glucose [Mass/Vol] 126 mg/dL High 70-99 [facility] Comment on above: Performed By: #### L AB119 #### [place] [address] Potassium [Moles/Vol] 4.5 mmol/L Normal 3.4-5.3 [facility] Comment on above: Performed By: #### L AB119 #### [place] [address] Sodium [Moles/Vol] 136 mmol/L Normal 135-148 [facility] Comment on above: Performed By: #### L AB119 #### [place] [address] Urea nitrogen [Mass/Vol] 11 mg/dL Normal 3-29 [facility] Comment on above: Performed By: #### L AB119 #### [place] [address] COMPLETE BLOOD COUNTon 05-09 Erythrocyte distribution width (RBC) [Ratio] 14.3 % Normal 9.0-15.0 [facility] Comment on above: Performed By: #### L AB119 #### [place] [address] Hematocrit (Bld) [Volume fraction] 34.8 % Low 41.0-50.0 [facility] Comment on above: Performed By: #### L AB119 #### [place] [address] Hemoglobin (Bld) [Mass/Vol] 11.9 g/dL Low 13.8-17.2 [facility] Comment on above: Performed By: #### L AB119 #### [place] [address] MCH (RBC) [Entitic mass] 30.4 pg Normal 27.0-33.0 [facility] Comment on above: Performed By: #### L AB119 #### [place] [address] MCHC (RBC) [Mass/Vol] 34.0 g/dL Normal 32.0-36.0 [facility] Comment on above: Performed By: #### L AB119 #### [place] [address] MCV (RBC) [Entitic vol] 89.4 fL Normal 80.0-100.0 [facility] Comment on above: Performed By: #### L AB119 #### [place] [address] Platelets (Bld) [#/Vol] 168 10*3/uL Normal 130-400 [facility] Comment on above: Performed By: #### L AB119 #### [place] [address] RBC COUNT 3.90 M/MM3 Low 4.40-5.80 [facility] Comment on above: Performed By: #### L AB119 #### [place] [address] WBC (Bld) [#/Vol] 19.5 10*3/uL High 3.8-10.8 [facility] Comment on above: Performed By: #### L AB119 #### [place] [address] DRUG SCREEN, URINEon 021 AMPHETAMINE, URINE Not detected Normal [facility] Comment on above: Performed By: #### L AB119 #### [place] [address] BARBITURATES, URINE Not detected Normal [facility] Comment on above: Performed By: #### L AB119 #### [address] BENZODIAZEPINE, URINE Positive Abnormal [facility] Comment on above: Performed By: #### L AB119 #### [place] [address] COCAINE, URINE Not detected Normal [facility] Comment on above: Performed By: #### L AB119 #### [address] COMMENT, URINE DRUG SCREEN Normal [facility] Comment on above: Result Comment: The [...] and/or metabolites are present. Test performed at [facility] [place], [place] Performed By: #### L AB119 #### [place] [address] OPIATES, URINE Not detected Normal [facility] Comment on above: Performed By: #### L AB119 #### [place] [address] THC Not detected Normal NONDT [facility] Comment on above: Performed By: #### L AB119 #### [place] [address] SARS COV 2 RNA, QL REAL TIME RT PCRon 05-09-2020 SARS-CoV-2 (COVID-19) RNA ARAVIND+probe Ql (Unsp spec) Not detected Normal NDET [facility] Comment on above: Result Comment: Refe rence Range = NOT DETECTED Performed By: #### L AB119 #### [place] [address] SARS-CoV-2 (COVID-19) RNA ARAVIND+probe Ql (Unsp spec) (NOTE) Normal [facility] Comment on above: Result Comment: The SARS CoV-2 RNA, Qualitative Real-Time RT-PCR test is a qualitative multi-target molecular diagnostic test that aids in the detection of COVID-19. This test has been authorized by the FDA under an Emergency Use Authorization (EUA) for use by [facility]. Refer to www.cdc.gov for additional information about Coronavirus disease 2019. Performed By: #### L AB119 #### [place] [address] URINALYSISon 05-09-2020 Appearance (U) CLEAR Normal [facility] Comment on above: Performed By: #### L AB119 #### [place] [address] BACTERIA, URINE NONE SEEN Normal NS [facility] Comment on above: Performed By: #### L AB119 #### [place] [address] BILIRUBIN, URINE Negative Normal NEG [facility] Comment on above: Performed By: #### L AB119 #### [place] [address] BLOOD, URINE Negative Normal NEG [facility] Comment on above: Performed By: #### L AB119 #### [place] [address] Color (U) Normal [facility] Comment on above: Result Comment: SIENNA OW Reference Range: Yellow and Colorless Performed By: #### L AB119 #### [place] [address] Glucose Ql (U) Negative Normal NEG [facility] Comment on above: Performed By: #### L AB119 #### [place] [address] HYALINE CAST Normal U05 [facility] Comment on above: Result Comment: 0-5 REFERENCE RANGE: 0-5 HYALINE CASTS NONE SEEN FOR NON HYALINE CASTS Performed By: #### L AB119 #### [place] [address] KETONE, URINE Negative Normal NEG [facility] Comment on above: Performed By: #### L AB119 #### [place] [address] LEUKOCYTES, URINE Negative Normal NEG [facility] Comment on above: Performed By: #### L AB119 #### [place] [address] MUCUS, URINE PRESENT Normal [facility] Comment on above: Performed By: #### L AB119 #### [place] [address] NITRITES, URINE Negative Normal NEG [facility] Comment on above: Performed By: #### L AB119 #### [place] [address] pH (U) 6.0 [pH] Normal 4.5-8.0 [facility] Comment on above: Performed By: #### L [id number] #### [place] [address] Protein (U) [Mass/Vol] 10 mg/dL Abnormal NEG [facility] Comment on above: Performed By: #### L [id number] #### [place] [address] RBC, URINE 6-10 Abnormal U02 [facility] Comment on above: Performed By: #### L [id number] #### [place] [address] RENAL EPITHELIAL CELLS, URINE 0-5 Normal U05 [facility] Comment on above: Performed By: #### L [id number] #### [place] [address] SPECIFIC GRAVITY, URINE 1.040 High 1.005-1.030 [facility] Comment on above: Result Comment: Urin e specific gravity may be affected by X-ray dye, high glucose, high protein, and some chemotherapeutic drugs. Clinical correlation is recommended. Performed By: #### L [id number] #### [place] [address] SQUAMOUS EPITHEAL CELLS, URINE 0-5 Normal U05 [facility] Comment on above: Performed By: #### L [id number] #### [place] [address] UROBILINOGEN, URINE <2 Normal <2 [facility] Comment on above: Performed By: #### L [id number] #### [place] [address] WBC, URINE 0-5 Normal 5 [facility] Comment on above: Performed By: #### L [id number] #### [place] [address] ACTIVATED PARTIAL THROMBOPLA STIN TIMEon 05-08-2020 aPTT Coag (Bld) [Time] 26.0 s Normal 24.5-35.2 [facility] Comment on above: Performed By: #### L [id number] #### [place] [address] BASIC METABOLIC PANELon 04-24 Anion gap [Moles/Vol] 11 mmol/L Normal 5-15 [facility] Comment on above: Performed By: #### L [id number] #### [place] [address] BUN/CREAT RATIO 10 (CALC) Normal 7.0-25.0 [facility] Comment on above: Performed By: #### L [id number] #### [place] [address] Calcium [Mass/Vol] 7.4 mg/dL Low 8.5-10.5 [facility] Comment on above: Performed By: #### L [id number] #### [place] [address] Chloride [Moles/Vol] 103 mmol/L Normal 96-[address] [facility] Comment on above: Performed By: #### L [id number] #### [place] [address] CO2 [Moles/Vol] 20 mmol/L Normal 19-32 [facility] Comment on above: Performed By: #### L [id number] #### [place] [address] Creatinine [Mass/Vol] 1.0 mg/dL Normal 0.5-1.4 [facility] Comment on above: Performed By: #### L AB064 #### [place] [address] ESTIMATED GFR 87 ML/MIN/1.73M2 Normal [facility] Comment on above: Result Comment: IF THE PATIENT IS , PLEASE MULTIPLY THIS BY 1.159. THIS RESULT HAS BEEN CALCULATED ASSUMING THE PATIENT IS NON- Performed By: #### L AB064 #### [place] [address] Glucose [Mass/Vol] 206 mg/dL High 70-99 [facility] Comment on above: Performed By: #### L [id number] #### [place] [address] Potassium [Moles/Vol] 4.8 mmol/L Normal 3.4-5.3 [facility] Comment on above: Result Comment: HEMO LYZED POTASSIUM RESULTS ARE ELEVATED BY SPECIMEN HEMOLYSIS Performed By: #### L [id number] #### [place] [address] Sodium [Moles/Vol] 134 mmol/L Low 135-148 [facility] Comment on above: Performed By: #### L [id number] #### [place] [address] Urea nitrogen [Mass/Vol] 10 mg/dL Normal 3-29 [facility] Comment on above: Performed By: #### L [id number] #### [place] [address] COMPLETE BLOOD COUNTon 05-08 Erythrocyte distribution width (RBC) [Ratio] 14.0 % Normal 9.0-15.0 [facility] Comment on above: Performed By: #### L [id number] #### [place] [address] Hematocrit (Bld) [Volume fraction] 40.4 % Low 41.0-50.0 [facility] Comment on above: Performed By: #### L [id number] #### [place] [address] Hemoglobin (Bld) [Mass/Vol] 13.7 g/dL Low 13.8-17.2 [facility] Comment on above: Performed By: #### L [id number] #### [place] [address] MCH (RBC) [Entitic mass] 30.4 pg Normal 27.0-33.0 [facility] Comment on above: Performed By: #### L [id number] #### [place] [address] MCHC (RBC) [Mass/Vol] 33.9 g/dL Normal 32.0-36.0 [facility] Comment on above: Performed By: #### L [id number] #### [place] [address] MCV (RBC) [Entitic vol] 89.9 fL Normal 80.0-100.0 [facility] Comment on above: Performed By: #### L [id number] #### [place] [address] Platelets (Bld) [#/Vol] 164 10*3/uL Normal 130-400 [facility] Comment on above: Performed By: #### L [id number] #### [place] [address] RBC COUNT 4.49 M/MM3 Normal 4.40-5.80 [facility] Comment on above: Performed By: #### L [id number] #### [place] [address] WBC (Bld) [#/Vol] 16.8 10*3/uL High 3.8-10.8 [facility] Comment on above: Performed By: #### L [id number] #### [place] [address] COMPLETE BLOOD COUNT WITH DI FFERENTIALon 05-08-2020 ABSOLUTE BASOPHIL 0.1 K/MM3 Normal 0.0-0.3 [facility] Comment on above: Performed By: #### L [id number] #### [place] [address] ABSOLUTE SEGMENTED NEUTROPHIL 13.5 K/MM3 High 1.5-7.8 [facility] Comment on above: Performed By: #### L [id number] #### [place] [address] Basophils/100 WBC (Bld) 0.3 % Normal 0.0-2.0 [facility] Comment on above: Performed By: #### L [id number] #### [place] [address] Eosinophils (Bld) [#/Vol] 0.0 10*3/uL Normal 0.0-0.6 [facility] Comment on above: Performed By: #### L AB119 #### [address] Eosinophils/100 WBC (Bld) 0.1 % Normal 0.0-7.0 [facility] Comment on above: Performed By: #### L [id number] #### [place] [id number] Erythrocyte distribution width (RBC) [Ratio] 13.8 % Normal 9.0-15.0 [facility] Comment on above: Performed By: #### L [id number] #### [address] Hematocrit (Bld) [Volume fraction] 39.7 % Low 41.0-50.0 [facility] Comment on above: Performed By: #### L [id number] #### [place] [id number] Hemoglobin (Bld) [Mass/Vol] 13.2 g/dL Low 13.8-17.2 [facility] Comment on above: Performed By: #### L [id number] #### [place] [id number] Lymphocytes (Bld) [#/Vol] 1.0 10*3/uL Normal 0.9-4.1 [facility] Comment on above: Performed By: #### L [id number] #### [facility] [place] [address] Lymphocytes/100 WBC (Bld) 6.4 % Low 18.0-47.0 [facility] Comment on above: Performed By: #### L [id number] #### [place] [address] MCH (RBC) [Entitic mass] 30.4 pg Normal 27.0-33.0 [facility] Comment on above: Performed By: #### L [id number] #### [place] [address] MCHC (RBC) [Mass/Vol] 33.2 g/dL Normal 32.0-36.0 [facility] Comment on above: Performed By: #### L [id number] #### [place] [address] MCV (RBC) [Entitic vol] 91.6 fL Normal 80.0-100.0 [facility] Comment on above: Performed By: #### L [id number] #### [place] [address] Monocytes (Bld) [#/Vol] 1.3 10*3/uL High 0.2-1.1 [facility] Comment on above: Performed By: #### L [id number] #### [place] [address] Monocytes/100 WBC (Bld) 8.1 % Normal 0-14.0 [facility] Comment on above: Performed By: #### L [id number] #### [place] [address] Platelets (Bld) [#/Vol] 187 10*3/uL Normal 130-400 [facility] Comment on above: Performed By: #### L [id number] #### [place] [address] RBC COUNT 4.34 M/MM3 Low 4.40-5.80 [facility] Comment on above: Performed By: #### L [id number] #### [place] [address] Segmented neutrophils/100 WBC (Bld) 85.1 % High 40.0-75.0 [facility] Comment on above: Performed By: #### L [id number] #### [place] [address] WBC (Bld) [#/Vol] 15.9 10*3/uL High 3.8-10.8 [facility] Comment on above: Performed By: #### L [id number] #### [place] [address] ETHANOLon 05-08-2020 Ethanol [Mass/Vol] Not detected Normal NONDT [facility] Comment on above: Performed By: #### L [id number] #### [place] [address] HEMOGLOBIN AND HEMATOCRITon 05-08-2020 Hematocrit (Bld) [Volume fraction] 37.0 % Low 41.0-50.0 [facility] Comment on above: Performed By: #### L AB236 #### [place] [address] Hemoglobin (Bld) [Mass/Vol] 12.5 g/dL Low 13.8-17.2 [facility] Comment on above: Performed By: #### L AB236 #### [place] [address] LACTIC ACIDon 05-08-2020 Lactate [Moles/Vol] 4.0 mmol/L High 0.5-2.2 [facility] Comment on above: Result Comment: Per the request of [facility]'s ER [place] and approval by the [facility] [employer] Social Worker and Medical Executive Committee, this critical value was not called to the caregiver. (NOTE) If ruling out sepsis: Result >2.0 meets criteria for severe sepsis, recommend repeat testing to rule out sepsis. Result >=4.0 meets criteria for septic shock. Performed By: #### L [id number] #### [place] [address] PREPARE RED BLOOD CELLSon PREPARE RED BLOOD CELLS UNIT PRODUCT COD E: [id number] PREPARE RED BLOOD CELLS: RED BLOOD CELLS, CPD>AS1, LEUKOCYTES REDUCED UNIT ID: [id number] UNIT ABO: O UNIT RH: POSITIVE UNIT DISPENSE STATUS: Emergency Issue UNIT EXPIRATION DATE: UNIT BLOOD TYPE: 5100 BLOOD CODING SYS: ISBT 128 [facility] Comment on above: Performed By: #### L [id number] #### [place] [address] PREPARE RED BLOOD CELLS UNIT PRODUCT COD E: [id number] PREPARE RED BLOOD CELLS: RED BLOOD CELLS, CPD>AS1, LEUKOCYTES REDUCED UNIT ID: [id number] UNIT ABO: O UNIT RH: POSITIVE UNIT DISPENSE STATUS: Emergency Issue UNIT EXPIRATION DATE: UNIT BLOOD TYPE: 5100 BLOOD CODING SYS: ISBT 128 [facility] Comment on above: Performed By: #### L [id number] #### [place] [address] PREPARE RED BLOOD CELLS UNIT PRODUCT COD E: [id number] PREPARE RED BLOOD CELLS: RED BLOOD CELLS, CPD>AS1, LEUKOCYTES REDUCED UNIT ID: [id number] UNIT ABO: O UNIT RH: POSITIVE UNIT INTERPRETATION: Compatible UNIT DISPENSE STATUS: Presumed Transfused UNIT EXPIRATION DATE: UNIT BLOOD TYPE: 5100 BLOOD CODING SYS: ISBT 128 UNIT PRODUCT CODE: [id number] PREPARE RED BLOOD CELLS: RED BLOOD CELLS, CPD>AS1, LEUKOCYTES REDUCED UNIT ID: [id number] UNIT ABO: O UNIT RH: POSITIVE UNIT INTERPRETATION: Compatible UNIT DISPENSE STATUS: Presumed Transfused UNIT EXPIRATION DATE: UNIT BLOOD TYPE: 5100 BLOOD CODING SYS: ISBT 128 [facility] Comment on above: Performed By: #### L [id number] #### [place] [address] PROTHROMBIN TIMEon INR Coag (PPP) [Relative time] 1.2 {INR} High 0.9-1.1 [facility] Comment on above: Result Comment: MODERATE-INTENSITY WARFARIN THERAPY: 2.0-3.0 HIGHER-INTENSITY WARFARIN THERAPY: 3.0-4.0 Performed By: #### L [id number] #### [place] [address] PT Coag (PPP) [Time] 15.3 s High 11.7-13.[address] [facility] Comment on above: Performed By: #### L AB119 #### [place] [address] SURGICAL PATHOLOGYon 021 SURGICAL PATHOLOGY SURGICAL PATHOLOGY REPORT Path #: [id number] Patient : JUAN CARLOS NOGUERA [place] #: [id number] Date: 05/09/2020 Pre Op Diagnosis Splenic laceration [...] is an area of focal hemorrhage present. Supervisor Ditching sections to include area of described defect and an area of focal hemorrhage are submitted in cassettes A through C . Note that the section with capsule still attached is submitted in cassette A . Technical work associated with this pathology investigation was performed by: [email or web address], [place], [place] [address]. [facility]/05/09/2020 Kat Aguilera Billing Fee Codes [phone] x [phone] The CPT codes provided are based on AMA guidelines and are for informational purposes only. CPT coding is the sole responsibility of the billing democrat. Please direct any questions regarding coding to the payer being billed. [facility] Comment on above: Performed By: #### L [id number] #### [place] [address] TYPE AND SCREENon 05-08-2020 TYPE AND SCREEN ABO GROUP: O RH TYPE: Positive INDIRECT ANTIGLOB: Negative SPECIMEN EXPIRATION DATE/TIME: [id number] [facility] Comment on above: Performed By: #### L AB401 #### [place] [address] VENOUS BLOOD GASon BASE EXCESS,VENOUS -7.3 MMOL/L [facility] Comment on above: Result Comment: BASE EXCESS NORMALS: -2 TO +3 Performed By: #### L [id number] #### [place] [address] HCO3 (Bld) [Moles/Vol] 21.4 mmol/L Low 24.0-28.0 [facility] Comment on above: Performed By: #### L AB416 #### [place] [address] O2 ADMINISTRATED UNKNOWN Normal [facility] Comment on above: Performed By: #### L AB416 #### [place] [address] Oxygen saturation in Blood 71.3 % High 40.0-70.0 [facility] Comment on above: Performed By: #### L [id number] #### [place] [address] PCO2, VENOUS 55.7 MM HG High 41.0-51.0 [facility] Comment on above: Performed By: #### L AB416 #### [place] [address] PH, VENOUS 7.19 Low 7.32-7.42 [facility] Comment on above: Performed By: #### L AB416 #### [place] [address] PO2, VENOUS 43.6 MM HG High 25.0-40.0 [facility] Comment on above: Performed By: #### L AB416 #### [place] [address] SURGICALon 04-30-2017 SUR[facility]ICAL [facility] GENARO GiselJUAN CARLOS [id number]. [address] [place] [address] PROC: 04/30/2017[facility] RECV: 04/30/20177[address] RPTD: 05/08/2017[place] [address] LOC: OI ACCT: SEX: M [id number] AGE: 46 Y : 1970 PATHOLOGY REPORT [...] the underlyingbone. The resection line is unremarkable. Supervisor Ditching sections aresubmitted after decalcification. ALP/DKR:jcsMicroscopic Examination:Microscopi c examination was performed.[id number] KAT MONTOYA D.O., F.C.ARaymondP.[facility]/ [facility] Printed on: 05/08/2017750 [place], [place] [address]Gwjpytah print date: 05/08/2017 [facility] TYPE AND SCREEN CAPTUREon ABO CAPTURE O 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 Normal [facility] Vital Signs Date Time Vital Sign Value Performing Clinician Faci litdemetrice 01-06-2024 15:14-0400 Body mass index (BMI) [Ratio] 29.26 kg/m2 Jennifer Avery BRANCH SERVICE REPRESENTATIVE Work Phone: [facility] 01-06-2024 15:14-0400 Body weight 95.17 kg Jennifer Avery BRANCH SERVICE REPRESENTATIVE Work Phone: [facility] 01-06-2024 15:14-0400 Diastolic blood pressure 74 mm[Hg] Jennifer Avery BRANCH SERVICE REPRESENTATIVE Work Phone: [facility] 01-06-2024 15:14-0400 Systolic blood pressure 128 mm[Hg] Jennifer Avery BRANCH SERVICE REPRESENTATIVE Work Phone: [facility] 12-30-2023 14:38-0400 Blood Pressure Location [facility] 12-30-2023 14:38-0400 Diastolic blood pressure 84 mm[Hg] Tylor [facility] 12-30-2023 14:38-0400 Heart rate 91 /min [facility] [employer] 12-30-2023 14:38-0400 Respiratory rate 16 /min Tylor [facility] 12-30-2023 14:38-0400 SaO2% (BldA) [Mass fraction] 99 % [facility] [employer] 12-30-2023 14:38-0400 Systolic blood pressure 136 mm[Hg] Tylor Knight [facility] 12-26-2023 07:38-0400 Body height 188 cm Cheyenne Horn MD Work Phone: [facility] 12-26-2023 07:38-0400 Body mass index (BMI) [Ratio] 26.83 kg/m2 Cheyenne Horn MD Work Phone: [facility] 12-26-2023 07:38-0400 Body weight 94.8 kg Cheyenne Horn MD Work Phone: [facility] 12-26-2023 07:38-0400 Diastolic blood pressure 62 mm[Hg] Cheyenne Horn MD Work Phone: [facility] 12-26-2023 07:38-0400 Heart rate 89 /min Cheyenne Horn MD Work Phone: [facility] 12-26-2023 07:38-0400 Systolic blood pressure 108 mm[Hg] Cheyenne Horn MD Work Phone: [facility] 12-24-2023 13:17-0400 Body height 187.96 cm MD Moreno Barrera Work Phone: [facility] 12-24-2023 13:17-0400 Body mass index (BMI) [Ratio] 26.3 kg/m2 MD Moreno Barrera Work Phone: [facility] 12-24-2023 13:17-0400 Body temperature 98.2 [degF] MD Moreno Barrera Work Phone: [facility] 12-24-2023 13:17-0400 Body weight 92.98 kg MD Moreno Barrera Work Phone: [facility] 12-24-2023 13:17-0400 Diastolic blood pressure 66 mm[Hg] MD Moreno Barrera Work Phone: [facility] 12-24-2023 13:17-0400 Heart rate 51 /min MD Moreno Barrera Work Phone: [facility] 12-24-2023 13:17-0400 Respiratory rate 18 /min MD Moreno Barrera Work Phone: [facility] 12-24-2023 13:17-0400 SaO2% (BldA) [Mass fraction] 98 % MD Moreno Barrera Work Phone: [facility] 12-24-2023 13:17-0400 Systolic blood pressure 107 mm[Hg] MD Moreno Barrera Work Phone: [facility] 11-28-2023 11:43-0400 Diastolic blood pressure 68 mm[Hg] Tylor [facility] 11-28-2023 11:43-0400 Heart rate 102 /min Tylor [facility] 11-28-2023 11:43-0400 Respiratory rate 16 /min Tylor [facility] 11-28-2023 11:43-0400 SaO2% (BldA) [Mass fraction] 98 % Tylor [facility] 11-28-2023 11:43-0400 Systolic blood pressure 118 mm[Hg] Tylor [facility] 11-12-2023 07:30-0400 Body temperature 97.8 [degF] MD Moreno Barrera Work Phone: [facility] 11-12-2023 07:30-0400 Diastolic blood pressure 76 mm[Hg] MD Moreno Barrera Work Phone: [facility] 11-12-2023 07:30-0400 Heart rate 65 /min MD Moreno Barrera Work Phone: [facility] 11-12-2023 07:30-0400 Respiratory rate 16 /min MD Moreno Barrera Work Phone: [facility] 11-12-2023 07:30-0400 SaO2% (BldA) [Mass fraction] 99 % MD Moreno Barrera Work Phone: [facility] 11-12-2023 07:30-0400 Systolic blood pressure 108 mm[Hg] MD Moreno Barrera Work Phone: [facility] 11-11-2023 13:51-0400 Body height 187.96 cm MD Moreno Barrera Work Phone: [facility] 11-10-2023 09:00-0400 Body weight 90.9 kg MD Moreno Barrera Work Phone: [facility] 11-06-2023 14:48-0400 Body temperature 98.2 [degF] MD Moreno Barrera Work Phone: [facility] 11-06-2023 14:48-0400 Diastolic blood pressure 88 mm[Hg] MD Moreno Barrera Work Phone: [facility] 11-06-2023 14:48-0400 Heart rate 83 /min MD Moreno Barrera Work Phone: [facility] 11-06-2023 14:48-0400 Respiratory rate 18 /min MD Moreno Barrera Work Phone: [facility] 11-06-2023 14:48-0400 SaO2% (BldA) [Mass fraction] 98 % MD Moreno Barrera Work Phone: [facility] 11-06-2023 14:48-0400 Systolic blood pressure 116 mm[Hg] MD Moreno Barrera Work Phone: [facility] 11-06-2023 11:23-0400 Body height 187.96 cm MD Moreno Barrera Work Phone: [facility] 11-06-2023 11:23-0400 Body weight 94.3 kg MD Moreno Barrear Work Phone: [facility] 10-07-2023 14:40-0400 Diastolic blood pressure 80 mm[Hg] Tylor [facility] 10-07-2023 14:40-0400 Heart rate 99 /min Tylor [facility] 10-07-2023 14:40-0400 Respiratory rate 16 /min Tylor [facility] 10-07-2023 14:40-0400 SaO2% (BldA) [Mass fraction] 96 % Tylor [facility] 10-07-2023 14:40-0400 Systolic blood pressure 128 mm[Hg] Tylor [facility] 08-11-2023 14:53-0400 Diastolic blood pressure 82 mm[Hg] Tylor [facility] 08-11-2023 14:53-0400 Heart rate 101 /min Tylor [facility] 08-11-2023 14:53-0400 SaO2% (BldA) [Mass fraction] 96 % Tylor [facility] 08-11-2023 14:53-0400 Systolic blood pressure 136 mm[Hg] Tylor [facility] 07-31-2023 08:08-0400 Diastolic blood pressure 71 mm[Hg] Tylor [facility] 07-31-2023 08:08-0400 Systolic blood pressure 100 mm[Hg] Tylor [facility] 07-31-2023 08:05-0400 Heart rate 133 /min Tylor [facility] 07-31-2023 08:05-0400 Respiratory rate 15 /min Tylor [facility] 07-31-2023 08:05-0400 SaO2% (BldA) [Mass fraction] 99 % Tylor [facility] 07-31-2023 08:04-0400 Diastolic blood pressure 65 mm[Hg] Tylor [facility] 07-31-2023 08:04-0400 Systolic blood pressure 105 mm[Hg] Tylor [facility] 07-31-2023 08:00-0400 Diastolic blood pressure 95 mm[Hg] Tylor [facility] 07-31-2023 08:00-0400 Heart rate 101 /min Tylor [facility] 07-31-2023 08:00-0400 Respiratory rate 14 /min Tylor [facility] 07-31-2023 08:00-0400 Systolic blood pressure 118 mm[Hg] Tylor [facility] 07-31-2023 07:55-0400 Heart rate 99 /min Tylor [facility] 07-31-2023 07:55-0400 Respiratory rate 15 /min Tylor [facility] 07-31-2023 07:55-0400 SaO2% (BldA) [Mass fraction] 99 % Tylor [facility] 07-31-2023 06:46-0400 Heart rate 99 /min Tylor [facility] 07-25-2023 10:54-0400 Diastolic blood pressure 82 mm[Hg] Tylor Kirn[facility] 07-25-2023 10:54-0400 Heart rate 115 /min Tylor Kirnus [facility] 07-25-2023 10:54-0400 SaO2% (BldA) [Mass fraction] 100 % Tylor [facility] 07-25-2023 10:54-0400 Systolic blood pressure 122 mm[Hg] Tylor [facility] 05-30-2023 14:55-0500 Diastolic blood pressure 90 mm[Hg] Zeb Christofferson [facility] 05-30-2023 14:55-0500 Heart rate 52 /min Zeb Christofferson [facility] 05-30-2023 14:55-0500 SaO2% (BldA) [Mass fraction] 91 % Zeb Christofferson [facility] 05-30-2023 14:55-0500 Systolic blood pressure 124 mm[Hg] Zeb Christofferson [facility] 05-02-2023 13:06-0500 Diastolic blood pressure 82 mm[Hg] Zeb Christofferson [facility] 05-02-2023 13:06-0500 Heart rate 54 /min Zeb Christofferson [facility] 05-02-2023 13:06-0500 SaO2% (BldA) [Mass fraction] 96 % Zeb Christofferson [facility] 05-02-2023 13:06-0500 Systolic blood pressure 138 mm[Hg] Zeb Christofferson [facility] 04-17-2023 07:36-0500 Body height 187.96 cm MD Moreno Barrera Work Phone: [facility] 04-17-2023 07:36-0500 Body weight 99.79 kg MD Moreno Barrera Work Phone: [facility] 03-20-2023 13:47-0500 Diastolic blood pressure 80 mm[Hg] Zeb Delarosa [facility] 03-20-2023 13:47-0500 Heart rate 116 /min Zeb Delarosa [facility] 03-20-2023 13:47-0500 SaO2% (BldA) [Mass fraction] 96 % Zeb Delarosa [facility] 03-20-2023 13:47-0500 Systolic blood pressure 132 mm[Hg] Zeb Delarosa [facility] 12-05-2022 11:30-0400 Body height 187.96 cm Moreno Barrera Other [employer] [facility] [employer] Other 12-05-2022 11:30-0400 Body mass index (BMI) [Ratio] 25.75 kg/m2 Moreno Barrera Other [employer] Other 12-05-2022 11:30-0400 Body weight 90.99 kg Moreno Barrera Other [employer] Other 12-05-2022 11:30-0400 Diastolic blood pressure 88 mm[Hg] Moreno Barrera Other [employer] Other 12-05-2022 11:30-0400 Respiratory rate 20 /min Moreno Barrera Other [employer] Other 12-05-2022 11:30-0400 Systolic blood pressure 134 mm[Hg] Moreno Barrera Other [employer] Other 09-30-2022 13:50-0400 Body height 187.96 cm Kat Boss Other [employer] Other 09-30-2022 13:50-0400 Body mass index (BMI) [Ratio] 25.83 kg/m2 Kat Boss Other [employer] Other 09-30-2022 13:50-0400 Body temperature 97.7 [degF] Kat Boss Other [employer] Other 09-30-2022 13:50-0400 Body weight 91.26 kg Kat Boss Other [employer] Other 09-30-2022 13:50-0400 Diastolic blood pressure 76 mm[Hg] Kat Boss Other [employer] Other 09-30-2022 13:50-0400 Respiratory rate 18 /min Kat Boss Other [employer] Other 09-30-2022 13:50-0400 SaO2% (BldA) [Mass fraction] 98 % Kat Boss Other [employer] Other 09-30-2022 13:50-0400 Systolic blood pressure 132 mm[Hg] Kat Boss Other [employer] Other 06-11-2021 08:25-0400 Body height 187.96 cm M.D. Diana Happy Cloud Work Phone: [facility] Work Phone: 06-11-2021 08:25-0400 Body mass index (BMI) [Ratio] 24.6 kg/m2 M.D. Diana Happy Cloud Work Phone: [facility] Work Phone: 06-11-2021 08:25-0400 Body temperature 96.1 [degF] M.D. Diana Peoples Work Phone: [facility] Work Phone: 06-11-2021 08:25-0400 Body weight 87.09 kg M.D. Diana Peoples Work Phone: [facility] Work Phone: 06-11-2021 08:25-0400 Diastolic blood pressure 62 mm[Hg] M.D. Diana Peoples Work Phone: [facility] Work Phone: 06-11-2021 08:25-0400 Heart rate 74 /min M.D. Diana Peoples Work Phone: [facility] Work Phone: 06-11-2021 08:25-0400 SaO2% (BldA) [Mass fraction] 99 % M.D. Diana Peoples Work Phone: [facility] Work Phone: 06-11-2021 08:25-0400 Systolic blood pressure 122 mm[Hg] M.D. Diana Peoples Work Phone: [facility] Work Phone: 03-12-2021 07:57-0500 Body height 187.96 cm M.D. Diana Peoples Work Phone: [facility] Work Phone: 03-12-2021 07:57-0500 Body mass index (BMI) [Ratio] 25.2 kg/m2 M.D. Diana Peoples Work Phone: [facility] Work Phone: 03-12-2021 07:57-0500 Body temperature 96.3 [degF] M.D. Diana Peoples Work Phone: [facility] Work Phone: 03-12-2021 07:57-0500 Body weight 89.36 kg M.D. Diana Peoples Work Phone: [facility] Work Phone: 03-12-2021 07:57-0500 Diastolic blood pressure 72 mm[Hg] M.D. Diana Peoples Work Phone: [facility] Work Phone: 03-12-2021 07:57-0500 Heart rate 132 /min M.D. Diana Peoples Work Phone: [facility] Work Phone: 03-12-2021 07:57-0500 SaO2% (BldA) [Mass fraction] 97 % M.D. Diana Peoples Work Phone: [facility] Work Phone: 03-12-2021 07:57-0500 Systolic blood pressure 138 mm[Hg] M.D. Diana Peoples Work Phone: [facility] Work Phone: 02-12-2021 07:45-0500 Body height 187.96 cm M.D. Diana Peoples Work Phone: [facility] Work Phone: 02-12-2021 07:45-0500 Body mass index (BMI) [Ratio] 25.2 kg/m2 M.D. Diana Peoples Work Phone: [facility] Work Phone: 02-12-2021 07:45-0500 Body temperature 96.3 [degF] M.D. Diana Peoples Work Phone: [facility] Work Phone: 02-12-2021 07:45-0500 Body weight 89.36 kg M.D. Diana Peoples Work Phone: [facility] Work Phone: 02-12-2021 07:45-0500 Diastolic blood pressure 72 mm[Hg] M.D. Diana Peoples Work Phone: [facility] Work Phone: 02-12-2021 07:45-0500 Heart rate 76 /min M.D. Diana Shelton Work Phone: [facility] Work Phone: 02-12-2021 07:45-0500 SaO2% (BldA) [Mass fraction] 100 % M.D. Diana Shelton Work Phone: [facility] Work Phone: 02-12-2021 07:45-0500 Systolic blood pressure 126 mm[Hg] M.D. Diana Peoples Work Phone: [facility] Work Phone: Encounters Encounter Date Encounter Type Care Provider Facility Start: 01-16-2024 End: 01-16-2024 Clinisync Result Encounter Jennifer Bargeroll [employer]CH SERVICE REPRESENTATIVE Work Phone: [facility] External Department Unsolicited Start: 01-16-2024 End: 01-16-2024 Clinisync Result Encounter Jennifer Avery BRANCH SERVICE REPRESENTATIVE Work Phone: [facility] External Department Unsolicited Start: 01-12-2024 ambulatory Ronaldo Sahu acility:[facility] Start: 01-06-2024 End: 01-06-2024 Office outpatient visit 25 minutes Jennifer Bargeroll BRANCH SERVICE REPRESENTATIVE Work Phone: [facility] [address] Comment on above: Lumbar radiculopathy (Primary Dx); Weakness of both lower extremities; Cognitive impairment; Anxiety; Muscle stiffness; Blurry vision, bilateral Start: 01-06-2024 End: 01-06-2024 ambulatory JENNIFER BENNIE Not Available Start: 01-06-2024 End: 01-06-2024 Bamboo flowsheet Jennifer Bargeroll BRANCH SERVICE REPRESENTATIVE Work Phone: [facility] [place] [facility] [address] Start: 01-06-2024 End: 01-06-2024 Bamboo flowsheet Jennifer Avery BRANCH SERVICE REPRESENTATIVE [facility] [address] Start: 12-31-2023 ambulatory [facility] Start: 12-30-2023 End: 12-30-2023 ambulatory XXXX NONE [place] Start: 12-30-2023 End: 12-30-2023 Patient encounter procedure Tylor Knight [facility] Start: 12-26-2023 End: 12-26-2023 Office consultation new/estab patient 80 min Cheyenne Horn MD Work Phone: [facility] Comment on above: Atrial fibrillation, unspecified type (Multi) (Primary Dx); Other fatigue; Shortness of breath on exertion; Encounter to establish care with new doctor; Encounter for medication review and counseling; Encounter to discuss treatment options; BMI 26.0-26.9,adult; Current smoker Start: 12-26-2023 End: 12-26-2023 ambulatory [facility] Start: 12-24-2023 End: 12-24-2023 ambulatory MD Moreno Barrera Work Phone: [facility] Work Phone: Start: 12-24-2023 End: 12-24-2023 Patient encounter procedure MD Moreno Barrera Work Phone: [facility] Work Phone: Start: 12-19-2023 Registered Recurring MD Moreno Barrera Work Phone: [facility] Start: 12-04-2023 End: 12-04-2023 ambulatory JENNIFER BENNIE Not Available Start: 11-28-2023 End: 11-28-2023 ambulatory XXXX NONE [place] Start: 11-28-2023 End: 11-28-2023 Patient encounter procedure Tylor Knight [facility] Start: 11-07-2023 Non-patient / Non-visit MD Marcelina Barrera Work Phone: [facility] Work Phone: Start: 11-06-2023 End: 11-12-2023 Evaluation and management of inpatient MD Moreno Barrera Work Phone: [facility] Work Phone: Start: 11-06-2023 Registered Recurring MD Moreno Barrera Work Phone: [facility] Start: 10-27-2023 Registered Recurring MD Moreno Barrera Work Phone: [facility] Start: 10-13-2023 End: 10-13-2023 ambulatory JENNIFER BENNIE Not Available Start: 10-07-2023 End: 10-28-2023 Pre-admission assessment Tylor Knight [facility] Start: 10-07-2023 End: 10-07-2023 ambulatory MD Tylor Knight [place] Start: 10-07-2023 End: 10-07-2023 Patient encounter procedure Tylor Knight [facility] Start: 10-01-2023 End: 10-01-2023 ambulatory Chanel Montalvo [place] Start: 10-01-2023 End: 10-01-2023 Patient encounter procedure Chanel Gilbert Montalvo [facility] Start: 08-11-2023 End: 08-11-2023 ambulatory XXXX NONE [place] Start: 08-11-2023 End: 08-11-2023 Patient encounter procedure Tylor Knight [facility] Start: 08-11-2023 End: 08-11-2023 ambulatory JENNIFER AVERY Not Available Start: 07-31-2023 End: 07-31-2023 Admission to same day surgery center Tylor Tariq Knight [facility] Start: 07-31-2023 End: 07-31-2023 ambulatory MD Tylor Knight [place] Start: 07-25-2023 End: 07-25-2023 ambulatory XXXX NONE Facility[place] Start: 07-25-2023 End: 07-25-2023 Patient encounter procedure Tylor Knight [facility] Start: 07-15-2023 End: 07-15-2023 ambulatory LESVIA BUTLER Not Available Start: 07-14-2023 End: 07-14-2023 ambulatory JANUSZSAMMIE CUENCAETT Not Available Start: 05-30-2023 End: 05-30-2023 ambulatory XXXX NONE [place] Start: 05-30-2023 End: 05-30-2023 Patient encounter procedure Zeb Delarosa [facility] Start: 05-08-2023 End: 05-08-2023 Admission to same day surgery center Zeb Delarosa [facility] Start: 05-08-2023 End: 05-08-2023 ambulatory Zeb Delarosa [place] Start: 05-02-2023 End: 05-02-2023 ambulatory XXXX NONE [place] Start: 05-02-2023 End: 05-02-2023 Patient encounter procedure Zeb Delarosa [facility] Start: 04-17-2023 End: 04-17-2023 Patient encounter procedure MD Moreno Barrera Work Phone: [facility] [place] Work Phone: Start: 04-17-2023 End: 04-17-2023 ambulatory MD Moreno Barrera Work Phone: [facility] Work Phone: Start: 04-15-2023 End: 04-15-2023 ambulatory Zeb Delarosa [place] Start: 04-15-2023 End: 04-15-2023 Patient encounter procedure Zeb Delarosa [facility] Start: 04-07-2023 End: 04-07-2023 ambulatory LESVIA BUTLER Not Available Start: 04-01-2023 ambulatory MD Tylor Knight [facility] Start: 03-20-2023 End: 03-20-2023 ambulatory JENNIFER AVERY [place] Start: 03-20-2023 End: 03-20-2023 Patient encounter procedure Zeb Delarosa [facility] Start: 12-27-2022 End: 12-27-2022 ambulatory Moreno Barrera Other [employer] Other Start: 12-27-2022 Telephone encounter Moreno Barrera [facility] Start: 12-10-2022 End: 12-10-2022 ambulatory Moreno Barrera Other [employer] Other Start: 12-10-2022 Telephone encounter Moreno Barrera [facility] Start: 12-05-2022 End: 12-05-2022 ambulatory Moreno Barrera Other [employer] Other Start: 12-05-2022 Office outpatient ne w 45 minutes Moreno Barrera [facility] Start: 09-30-2022 End: 09-30-2022 ambulatory Kat Boss Other [facility] [employer] Other Start: 09-30-2022 Office outpatient ne w 20 minutes Kat Boss [facility] Start: 12-20-2021 End: 12-20-2021 ambulatory Marie Ai Romeros Facility:[facility] Start: 12-18-2021 End: 12-18-2021 ambulatory Marie K. Mckenzie Facility:[facility] Start: 12-12-2021 End: 12-12-2021 ambulatory Marie K. Mckenzie [place] Start: 12-03-2021 End: 12-03-2021 ambulatory Marie K. Mckenzie Facility:[facility] Start: 12-03-2021 End: 12-03-2021 ambulatory Marie K. Mckenzie [place] Start: 11-28-2021 End: 11-28-2021 ambulatory Marie K. Mckenzie Facility:[facility] Start: 11-23-2021 End: 11-23-2021 Emergency department patient visit Marie Ai Romeros Facility:[facility] Start: 10-08-2021 End: 10-08-2021 ambulatory Marie Magno. Mckenzie [place] Start: 09-10-2021 End: 09-10-2021 ambulatory Marie K. Mckenzie Facility[place] Start: 06-11-2021 End: 06-11-2021 ambulatory Marie Magno. Mckenzie Facility:[facility] Start: 06-11-2021 End: 06-11-2021 Patient encounter procedure Ele Peoples Work Phone: [facility] Start: 03-12-2021 End: 03-12-2021 ambulatory Diana Peoples Facility:[facility] Start: 03-12-2021 End: 03-12-2021 Patient encounter procedure Ele Peoples Work Phone: [facility] Start: 02-12-2021 End: 02-12-2021 ambulatory Diana Peoples [place] Start: 02-12-2021 End: 02-12-2021 Patient encounter procedure Ele Diana Peoples Work Phone: [facility] Start: 04-28-2017 End: 04-29-2017 Ambulatory JOSE KOROMA [facility] Start: 04-14-2017 End: 04-14-2017 Unknown YONY TAN [facility] Procedures Date Procedure Procedure Detail Performing Clinician Start: 01-16-2024 ALL MYOGLOBIN Jennifer Bennie [employer]ANCH SERVICE REPRESENTATIVE Work Phone: Start: 01-16-2024 ALL THYROID STIM HORMONE Jennifer Bennie N P Work Phone: Start: 01-16-2024 [facility] CK Jennifer Avery BRANCH SERVICE REPRESENTATIVE Work Phone: Start: 12-26-2023 Ecg routine ecg w/least 12 [...] procedure 03/02/2024 11:00 AM EST Office Visit [facility] [address] [place] [address] Jennifer Avery, BRANCH SERVICE REPRESENTATIVE [address] [place] [id number] [facility] [address] Start: 01-06-2024 End: 01-06-2024 Patient encounter procedure 01/06/2024 3:00 PM EDT Office Visit [facility] [address] [place] [address] Jennifer Avery NP [address] [place] [address] Lumbar radiculopathy (Primary Dx); Cognitive impairment; Anxiety; Muscle stiffness; Blurry vision, bilateral [facility] [place] [address] Comment on above: Lumbar radiculopathy (Primary Dx); Cognitive impairment; Anxiety; Muscle stiffness; Blurry vision, bilateral Start: 01-06-2024 End: 01-05-2025 Aldolase Aldolase Lab Routine Weakness of both lower extremities Expected: 01/06/2024 (Approximate), Expires: 01/05/2025 [facility] Comment on above: Expected: 01/06/2024 (Approximate), Expi res: 01/05/2025 Start: 01-06-2024 End: 01-05-2025 Creatine kinase [Enzymatic activity/volume] in Serum or Plasma CK Lab Routine Weakness of both lower extremities Expected: 01/06/2024 (Approximate), Expires: 01/05/2025 [facility] Work Phone: Comment on above: Expected: 01/06/2024 (Approximate), Expi res: 01/05/2025 Start: 01-06-2024 End: 01-05-2025 Myoglobin, serum Myoglobin, serum Lab Routine Weakness of both lower extremities Expected: 01/06/2024 (Approximate), Expires: 01/05/2025 [facility] Comment on above: Expected: 01/06/2024 (Approximate), Expi res: 01/05/2025 Start: 01-06-2024 End: 01-05-2025 Nuclear Ab [Titer] in Serum by Immunofluorescence NICK Lab Routine Weakness of both lower extremities Expected: 01/06/2024 (Approximate), Expires: 01/05/2025 [facility] Comment on above: Expected: 01/06/2024 (Approximate), Expi res: 01/05/2025 Start: 01-06-2024 End: 01-05-2025 Thyrotropin [Units/volume] in Serum or Plasma TSH Lab Routine Weakness of both lower extremities Expected: 01/06/2024 (Approximate), Expires: 01/05/2025 [facility] Comment on above: Expected: 01/06/2024 (Approximate), Expi res: 01/05/2025 Start: 11-23-2023 COVID-19 Vaccine ( season) COVID-19 Vaccine ( season) [facility] Start: 11-12-2023 [facility] Start: 11-06-2023 Hospital admission [facility] Start: 2018 Zoster Vaccines (1 of 2) Zoster Vaccines (1 of 2) [facility] Start: 1990 DTaP/Tdap/Td Vaccines (1 - Tdap) DTaP/Tdap/Td Vaccines (1 - Tdap) [facility] Start: 10-18-1987 Hepatitis B Vaccines (1 of 3 - 19+ 3-dose series) Hepatitis B Vaccines (1 of 3 - 19+ 3-dose series) [facility] Start: 1986 Diabetes mellitus screening Diabetes Screening [facility] Start: 1986 Hepatitis C screening Hepatitis C Screening [facility] Start: 1969 MMR Vaccines (1 of 1 - Standard series) MMR Vaccines (1 of 1 - Standard series) [facility] Start: 1968 HIV screening HIV Screening [facility] Start: 1968 Lip[address] Lipid Panel [facility] Start: 1968 Screening for malignant neoplasm of colon [facility] Start: 1968 Yearly Adult Physical Yearly Adult Physical [facility] End: 12-25-2024 Basic metabolic 2000 panel - Serum or Plasma Basic Metabolic Panel Lab Routine Atrial fibrillation, unspecified type (Multi) Other fatigue Shortness of breath on exertion 1 Occurrences starting 12/26/2023 until 12/25/2024 [facility] Service Area Work Phone: Comment on above: 1 Occurrences starting 12/26/2023 until 12/25/2024 End: 12-25-2024 CBC panel - Blood by Automated count CBC Lab Routine Atrial fibrillation, unspecified type (Multi) Other fatigue Shortness of breath on exertion 1 Occurrences starting 12/26/2023 until 12/25/2024 [facility] Work Phone: Comment on above: 1 Occurrences starting 12/26/2023 until 12/25/2024 End: 12-25-2024 CT Heart W contrast IV CT heart structure morphology w IV contrast Imaging Routine Atrial fibrillation, unspecified type (Multi) Other fatigue Shortness of breath on exertion 1 Occurrences starting 12/26/2023 until 12/25/2024 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 Work Phone: Comment on above: 1 Occurrences starting 12/26/2023 until 12/25/2024 End: 12-25-2025 US Heart Transesophageal Transesophageal Echo (ABHISHEK) Echocardiography Routine Atrial fibrillation, unspecified type (Multi) 1 Occurrences starting 12/26/2023 until 12/25/2025 [facility] Work Phone: Comment on above: 1 Occurrences starting 12/26/2023 until 12/25/2025 Immunizations Immunization Date Immunization Notes Care Provider Fa elaine 05-10-2020 haemophilus influenz ae type b vaccine, PRP-T conjugate Ele Peoples Work Phone: [facility] Work Phone: 05-10-2020 meningococcal polysaccharide (groups A, C, Y and W-135) diphtheria toxoid conjugate vaccine (MCV4P) Ele Peoples Work Phone: [facility] Work Phone: 05-10-2020 pneumococcal conjuga te vaccine, 13 valent Ele Forbesters Work Phone: [facility] Work Phone: Payers Date Payer Category Payer Unknown [id number] 2022 Private Health Insurance [employer] [id number] 2022 Unknown [facility] [employer] [employer] [id number] 2022-Present [address] [place] [address] [id number] 2022 Medicaid [id number] [id number] 2021 Self-pay [id number] 2021 Unknown [id number] 2016 Unknown [id number] 1968 Unknown [id number] 2.16.840.1.417233.3.579.2. 1246 1968 Unknown [id number] 2.16.840.1.916484.3.579.2. 1244 1968 Unknown [id number] 2.16.840.1.747457.3.579.2. 125 1968 Unknown [id number] 2.16.840.1.746734.3.579.2. 1258 1968 Unknown [id number] 2.16.840.1.835821.3.579.2. 1258 1968 Unknown [id number] 2.16.840.1.864805.3.579.2. 1258 1968 Unknown [id number] 2.16.840.1.956229.3.579.2. 1258 1968 Unknown [id number] 2.16.840.1.002352.3.579.2. 125 1968 Unknown [id number] 2.16.840.1.164466.3.579.2. 1258 1968 Unknown [id number] 2.16.840.1.488447.3.579.2. 1258 1968 Unknown [id number] 2.16.840.1.718963.3.579.2. 125 1968 Unknown [id number] 2.16.840.1.169066.3.579.2. 72 1968 Unknown [id number] 2.16.840.1.030824.3.579.2. 72 1968 Unknown [id number] 2.16.840.1.204168.3.579.2. 727 1968 Unknown [id number] 2.16.840.1.455492.3.579.2. 72 1968 Unknown [id number] 2.16.840.1.409424.3.579.2. 727 1968 Unknown [id number] 2.16.840.1.225406.3.579.2. 727 1968 Unknown [id number] 2.16.840.1.180111.3.579.2. 727 1968 Unknown [id number] 2.16.840.1.174897.3.579.2. 72 1968 Unknown [id number] 2.16.840.1.880919.3.579.2. 72 1968 Unknown [id number] 2..840.1.389876.3.579.2. 72 1968 Unknown [id number] 2.840.1.774110.3.579.2. 1968 Unknown [id number] 2.16.840.1.273451.3.579.2. 727 Unknown [id number] 2.16.840.1.790160.3.579.2. 653 Unknown [id number] 2.16.840.1.570051.3.579.2. 653 Unknown [id number] 2.16.840.1.513274.3.579.2. 653 Unknown [id number] 2.16.840.1.921675.3.579.2. 653 Unknown [id number] 2.16.840.1.968700.3.579.2. 653 Unknown [id number] 2.16.840.1.496702.3.579.2. 653 Unknown [id number] 2.16.840.1.778443.3.579.2. 653 Unknown [id number] 2.16.840.1.222422.3.579.2. 653 Unknown [id number] 2.16.840.1.989000.3.579.2. 653 Unknown [id number] 2.16.840.1.547958.3.579.2. 653 Unknown [id number] 2.16.840.1.887309.3.579.2. 653 Unknown [id number] 2.16.840.1.835224.3.579.2. 653 Unknown [id number] 2.16.840.1.888910.3.579.2. 531 Unknown [id number] 2.16.840.1.820282.3.579.2. 531 Unknown [id number] 2.16.840.1.585423.3.579.2. 531 Social History Date Type Detail Facility Start: 02-12-2021 End: 02-12-2021 Tobacco smoking status TXIS Unknown if ever smoked [facility] Work Phone: Start: 02-12-2021 Current Every Day User [facility] Work Phone: Start: 08-03-2020 Current Every Day Drinker [facility] Work Phone: Start: 02-12-2021 < 1ppd [facility] Work Phone: Start: 08-03-2020 Never [facility] Work Phone: Start: 1970 Sex Assigned At Male F [facility] Start: 12-04-2023 End: 01-06-2024 Sex Assigned At [facility] Start: 03-20-2023 End: 12-30-2023 Tobacco smoking status Light tobacco smoker (finding) [facility] Tobacco smoking status Smokeless tobacco user within last 30 days [facility] Start: 11-06-2023 End: 11-07-2023 Tobacco smoking status NHIS Smoker (finding) [facility] Start: 12-04-2023 End: 12-26-2023 Tobacco smoking status NHIS Smokes tobacco daily [facility] Work Phone: History of tobacco use Cigarette Smoker [facility] [place] Work Phone: Start: 12-26-2023 Tobacco use and exposure Smokeless tobacco non-user [facility] Work Phone: Start: 12-26-2023 End: 01-06-2024 Alcoholic beverage intake Ex-drinker (finding) [facility] Work Phone: Start: 1970 [facility] Work [facility]: Start: 12-16-2023 End: 12-26-2023 Exposure to SARS-CoV-2 (event) Not sure [facility] History of tobacco use Passive smoker [facility] Start: 12-04-2023 End: 01-06-2024 History of Social function [facility] Start: 07-07-2023 Alcohol Comment quit drinking 2022 [facility] Goals Date Patient Goal Desired Activity /State Functional Status Date Assessment Result Facility 12-30-2023 Functional Status N/A [facility] 11-28-2023 Functional Status N/A [facility] 11-12-2023 Functional status Patient at Baseline [facility] Work Phone: 10-07-2023 Functional Status N/A [facility] 08-11-2023 Functional Status N/A [facility] 07-31-2023 Functional Status N/A [facility] 07-25-2023 Functional Status N/A [facility] 05-30-2023 Functional Status N/A [facility] 05-08-2023 Functional Status N/A [facility] 05-02-2023 Functional Status N/A [facility] 03-20-2023 Functional Status N/A [facility] Mental Status Date Assessment Result Facility 11-12-2023 Cognitive function Cognitive Sta tus Patient at Baseline [facility] Work Phone: Clinical Notes 09-30-2022 to 01-06-2024 Jennifer Avery NP - 01/06/2024 3:00 PM EDTPatient Gerard Horn MD - 12/26/2023 7:20 AM EDTPatient Instructions Note Date & Type Note Facility 01-06-2024 History of Present illness Narrative Images from the original note were not included. Jennifer Avery NP Chief Complaint Patient presents with Memory Loss Back Pain Levi Noguera is a 53 y.o. male. HPI [...] wrist extensors , wrist flexor , and manager sourcing strength 5/5. LUE strength deltoid , biceps , triceps , wrist extensors , wrist flexor , and manager sourcing strength 5/5. RLE strength iliopsoas strength 4/5. Quadriceps, tibialis anterior, plantar flexion and dorsiflexion strength 5/5. LLE strength iliopsoas, quadriceps, tibialis anterior, plantar flexion and dorsiflexion strength 5/5. Tone and bulk are normal. Sensory: Sensation is intact to light touch throughout all four extremities. Sensation is intact to temperature in all extremities. Reflexes: Deep tendon reflexes are 1+ and symmetric throughout. Coordination: Vwxefr-ix-ywmt testing normal. Rapid alternating movements are normal. Gait: Normal. Review and summary of old records: MRI of the lumbar spine w/o contrast at [facility] on 12/31/23: Mild to moderate degenerative changes [...] right degenerative facet arthropathy. Neuropsychological evaluation at [facility] on 07/15/23: Current neuropsychological evaluation demonstrates, when [...] EMG of the bilateral lower extremities at [facility] on 07/14/23: Essentially normal. No evidence of lumbar radiculopathy. No evidence of a generalized process such as polyneuropathy. 2-hr EEG at [facility] on 06/24/23: Normal The patient was referred to cardiology for tachycardia and has since been diagnosed with atrial fibrillation. He is taking Eliquis and carvedilol and underwent cardiac catheterization in early 2023. Routine EEG at [facility] on 05/22/23: Normal Labs at [facility] on 04/23/23: TSH 1.835. B12 level 458. MRI of the cervical spine w/o contrast at [facility] on 04/17/23: No cord compression or cord [...] the brain w and w/o contrast at [facility] on 04/17/23: There are punctate foci of T2 and T2 FLAIR hyperintense signal consistent with mild chronic microvascular ischemic change. No acute intracranial pathology. Mucosal thickening is noted in the maxillary sinuses, left sphenoid sinus, and ethmoid air cells. 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 He verbalizes understanding and [...] symptoms. PLAN: - Follow up closely with [facility] for aggressive treatment of [...] his symptoms. PLAN: - Follow up with [facility] for treatment Cervical radiculopathy [...] new or worsening symptoms. Jennifer Avery NP [facility] Advanced Neurology documented in this encounter [facility] 01-06-2024 Instructions Jennifer Avery NP - 01/06/2024 3:00 PM EDT - Start pregabalin 25 mg by mouth three times a day - Laboratory evaluation (TSH, CK, myoglobin, aldolase, and NICK) documented in this encounter [facility] 12-26-2023 History of Present illness Narrative Referred by Dr. Knight for New Patient Visit (A fib) History Of Present Illness: Juan Carlos Nougera is a 53 y.o. male presenting with atrial fibrillation. He is fatigued. He has chronic dyspnea with exertion. He thinks he has been short of breath for many months and had flip-flops for years. He was told in the past it might be anxiety. His first ECG was when it was performed at [facility]. At that time he knows he had [...] 40 mg tablet 1 tablet, oral, Daily (0630) busPIRone (BUSPAR) 5 mg, oral, 2 times daily carvedilol (Coreg) 3.125 mg tablet 1 tablet, oral, Every 12 hours scheduled (0630,1830) Eliquis 5 mg tablet 1 tablet, oral, Every 12 hours scheduled (0630,1830) Entresto 24-26 mg tablet 1 tablet, oral, Every 12 hours scheduled (0630,1830) FLUoxetine (PROZAC) 20 mg, oral, Daily before [...] for preoperative evaluation. documented in this encounter [facility] Work Phone: 12-26-2023 Instructions Zita Booker [...] time of your visit. REFER to Dr. Bergman START Multaq 400mg twice daily SCHEDULE CT, ABHISHEK, cryoablation. Obtain labs 1 week prior to procedure. Orders are in the system. CONTINUE Eliquis through the procedure and for at least 1 month after. Follow up with Dr. Horn in 6 months I, ZITA BOOKER RN, AM SCRIBING FOR AND IN THE PRESENCE OF DR. CHEYENNE HORN MD, FACC, FACP, FHRS documented in this encounter [facility] Work Phone: 11-11-2023 Progress note Note Date/Time November 11, 2023 12:44pm [facility] [address] [place] [address] Psychiatry Progress Note Signed Patient: Juan Carlos Noguera MR#: [id number] : 1970 Acct:[id number] Age/Sex: 53 / M Adm Date: 4 Loc: 1S Room: 4U6679-1 Type : ADM IN Attending Dr: Ronaldo [...] <Electronically signed by Lino Floyd MD> 11/11/23 1346 [facility] Work Phone: 1(561) 702-194908-19-2024 Progress note Author Lino Floyd [facility] November 10, 2023 12:53pm Note Date/Time November 10, 2023 12 :13pm [facility] [address] [place] [address] Psychiatry Progress Note Signed Patient: Juan Carlos Noguera MR#: [id number] : 1970 Acct:[id number] Age/Sex: 53 / M Adm Date: 4 Loc: Room: [address] [place] [address] Type : ADM IN Attending Dr: Ronaldo [...] discharge. Documented By: Lino Floyd MD 11/10/23 120 Signed By: <Electronically signed by Lino Floyd MD> 11/10/23 3441 [facility] Work Phone: 1(569) 170-927308-18-2024 Progress note Author Ronaldo shanks [facility] November 09, 2023 3:23pm Note Date/Time November 09, 2023 1: 28pm [facility] [address] [place] [address] Psychiatry Progress Note Signed Patient: Juan Carlos Noguera MR#: [id number] : 1970 Acct:[id number] Age/Sex: 53 / M Adm Date: 4 Loc: Room: [address] [place] [address] Type : ADM IN Attending Dr: Ronaldo [...] he made. Pt also talked about how [place], and [place] in the interview. Pt's [...] <Electronically signed by Ronaldo Castro MD> 11/09/23 [facility]3 [facility] Work Phone: 1(404) 569-466908-17-2024 Progress note Author Ronaldo shanks [facility] November 08, 2023 8:21pm Note Date/Time November 08, 2023 8: 30am [facility] [address] [place] [address] Psychiatry Progress Note Signed Patient: Juan Carlos Noguera MR#: [id number] : 1970 Acct:[id number] Age/Sex: 53 / M Adm Date: 4 Loc: 1S Room: [address] [place] [address] Type : ADM IN Attending Dr: Ronaldo [...] number and that his phone is , loan underwriter suggested charging phone to get number but [...] discharge. Documented By: Ronaldo Castro MD 4 0806 Signed By: <Electronically signed by Ronaldo Castro MD> 11/08/232020 [facility] Work Phone: 1(353) 966-643908-16-2024 Consult note Author Avril Fox [facility] November 07, 2023 4:09pm Note Date/Time November 07, 2023 4: 04pm [facility] [address] [place] [address] Cardiology Consult Note Signed Patient: Juan Carlos Noguera MR#: [id number] : 1970 Acct:[id number] Age/Sex: 53 / M Adm Date: 4 Loc: Room: [address] [place] [address] Type: ADM IN Attending Dr: Ronaldo Castro MD Copies to: MD Moreno Santiago MD Mourhaf A Traboulssi, MD~ Cardiology HPI History of Present Illness Consult Date: 11/07/23 Reason for Consult: Cardiac consultation requested for evaluation of atrial fibrillation HPI: Mr. Noguera is a 53 year old male with known history of atrial fibrillation diagnosed last year. He underwent evaluation by the [facility] cardiology group. He was diagnosed with mild nonischemic cardiomyopathy with LVEF around 45%. Mild coronary artery disease based on previous cardiac catheterization didnot require intervention. He did undergo cardioversion once which was successful but failed to remain in normal sinus rhythm. Patient was admitted [facility] mainly because of issue related to [...] of all other pertinent symptom completely negative [facility] Medical History (Updated 11/07/23 @ 14:51 [...] with LVEF around 45% [facility] 3. Mild coronary artery disease based on recent heart cath at [facility] 4. Depression and anxiety Plan 1. Continue anticoagulation 2. Will increase Coreg to 12.5 mg twice daily. To optimize heart rate control 3. I advised the patient to call and reschedule his EP follow-up after discharge 4. Will follow on as-needed basis Documented By: Avril Fox MD 11/07/23 0515 Signed By: <Electronically signed by MD Avril Fox> 11/07/23 8862 [facility] Work Phone: 1(454) 807-503708-16-2024 History and physical note Author Ronaldo shanks [facility] November 07, 2023 2:51pm Note Date/Time November 07, 2023 9: 53am [facility] [address] [place] [address] Psychiatry H&P Signed Patient: Juan Carlos Noguera MR#: [id number] : 1970 Acct:[id number] Age/Sex: 53 / M Adm Date: 4 Loc: Room: 4X1288-5 Type: ADM IN Attending Dr: Ronaldo Castro [...] convince his mom to go to a longterm, thereby leaving him without housing options. According [...] that looked like uncle parth from the [employer] family but has not seen him again. [...] responding to internalstimuli. Insight: limited Judgment: limited [facility] Medical History (Updated 11/07/23 @ 14:51 [...] Appearance Clear Urine pH 6.0 Ur Specific [place] 1.017 Urine Protein 30 H Urine Glucose [...] <Electronically signed by Ronaldo Castro MD> 11/07/23 3328 [facility] Work Phone: 1(596) 584-282005-13-2024 Note [id number] Evaluation + Plan noteExtracted from: Title:Procedure [...] Basic PRE Author:Rocky Tompkins DO Date:07/31/23 Plan Citizen Of [place] Society of Anesthesiologists (ASA) physical status classification: Class II. Anesthetic Preoperative Plan: Anesthesia General. Future Appointments Appointment Date:08/11/2023 03:00:00 PM Scheduled Provider:[facility]ylor Knight MD [facility] Type:Cardiology Follow Up (FT) Appointment Date:10/31/2023 01:00:00 PM Scheduled Provider:Zeb Delarosa MD [facility] Appoint[facility] Type:Cardiology Follow Up (FT) Future Scheduled Tests Laboratory* B-Type Natriuretic Peptide 06/16/23 * Basic Metabolic Panel 05/06/23 * Basic Metabolic Panel 06/16/23 * Basic Metabolic Panel 07/25/23 * CBC w/ Auto Diff 05/06/23 [facility]05-09-2024 Hospital Discharge instructions Patient Education 07/31/2023 08:28:36 CV - Cardioversion (CUSTOM) [place], [place] CARDIOVERSION AFTER THE PROCEDURE: DIET: Resume [...] event you are unable to reach your doughmaker, please call [facility] at [phone] and the machine feed operator will assist you in contacting your [...] Up Care 07/28/2023 08:53:54 With:Tylor Knight Address: [address] [place], [place] [address] [address]- [phone] Business (1) When:08/11/2023 15:00:00 [facility]05-09-2024 NoteProcedure Procedure date: 07/31/2023 Elective DC cardioversion Indication: Symptomatic paroxysmal atrial fibrillation Procedure description: The patient was brought to the endoscopy suite in the fasting state. Timeout was performed. Deep sedation was provided by anesthesia services. The patient underwent synchronized cardioversion shocks x 2, with baptist of normal sinus rhythm at [address] [...] Site Prep Per Protocol Vital SignsCleveland Clinic Hillcrest HospitalComment on above:Result Comment: Electronically Signed By: Antonia RUBIO, Tylor Clark.krista\Date and Time Signed: 07/31/23 08:19 [id number] Evaluation + Plan note Future Scheduled Tests Laboratory* B-Type Natriuretic Peptide 06/16/23 * Basic Metabolic Panel 05/06/23 * Basic Metabolic Panel 06/16/23 * Basic Metabolic Panel 07/25/23 * CBC w/ Auto Diff 05/06/23 [facility] [id number] NoteProcedure [facility] poss PCI via right radial for [...] Sedation Plan: Patient agrees to IV sedation [facility] Comment on above:Result Comment: Electronically Signed By: Isaura RUBIO, Zeb Reza\.br\Date and Time Signed: 05/13/23 13:43 [id number] Note [id number] Hospital Discharge instructions Patient Education 05/08/2023 13:13:00 CV - Cardiovascular Discharge Instructions (CUSTOM) [place], [place] CARDIOVASCULAR DISCHARGE INSTRUCTIONS Diet: Resume pre-procedure [...] hours post procedure: Actoplus MetGlucophageGlucophage XR GlucovanceAvandametFortamet Zxt-bgkoebkilJfbgewUzqf-nlpwacmnz GlumetzaJanumetMetaglip RiometGlycomet *Minimal pain, soreness and/or discomfort [...] you are interested in smoking cessation, contact [facility] at [phone], ext. [phone]. In the event you are unable to reach your physician, please call [facility] at [phone] and the machine feed operator will assist you. Seek Immediate Medical Care for: Bleeding: Apply continuous pressure to the site and Call 911. Should the arm or leg become cold, numb, blue or white call your physician immediately. Signs of infection are redness, warmth, swelling, increased tenderness, colored drainage, fever or chills Chest pain Follow Up Care 05/05/2023 16:03:04 With:Zeb Delarosa Address: [address] [place], [place] [id number] Business (1) When:05/30/2023 15:15:00 [facility]01-30-2024 NoteEchocardiology Procedure Exam Date/Time Accession # Ordering Dr. Johnston Transthoracic 04/15/2023 08:56 [facility] [id number] Isaura RUBIO, Zeb Reza CPT code 72446 97510 Reason for Exam (Echo Transthoracic Complete) R07.09;Chest pain Report Version: 1 Study ID: [id number] [facility] [address] [id number] Adult Echocardiogram Report Name: CHUCKIE RANGEL Study Date: 04/15/2023, 8: 01 AM Patient Location: FT CAR [facility] : 1970 (MM/DD/YYYY) Gender: Male Age: 52 [...] Signed by: Zeb Delarosa MD Transcribed by: [facility] Technologist: [facility]10-06-2023 Evaluation note* Encounter Date Diagnosis Assessment Notes Treatment Notes Treatment Clinical Notes Dec, Foraminal stenosis of cervical region (ICD-10 - M48.02) [facility] Other 09-19-2023 Evaluation note* Encounter Date Diagnosis Assessment Notes Treatment Notes Treatment Clinical Notes Nov, Foraminal stenosis of cervical region (ICD-10 - M48.02) [facility] Other 09-14-2023 Evaluation note* Encounter Date Diagnosis [...] - J45.31) Pt requests refill of inhaler. [facility] Other 07-10-2023 Evaluation note* Encounter Date Diagnosis [...] understanding and is agreeable to treatment plan. [facility] Other Evaluation + Plan note Future Appointments Appointment Date:05/02/2023 01:15:00 PM Scheduled Provider:Zeb Delarosa MD Location:[facility] Appointment Type:Cardiology Follow Up (FT) Future Scheduled Tests Radiology* NM Myocardial Spect Rest/Stress 1 Day 03/20/23 * Echo Transthoracic Complete 03/20/23 [facility] Future Appointments Appointment Date:05/02/2023 01:15:00 PM Scheduled Provider:Zeb Delarosa MD Location:[facility] Appointment Type:Cardiology Follow Up (FT) [facility] Future Appointments Appointment Date:10/31/2023 01:00:00 PM Scheduled Provider:Zeb Delarosa MD Location:[facility] Appointment Type:Cardiology Follow Up (FT) [facility] Future Appointments Appointment Date:05/30/2023 03:00:00 PM Scheduled Provider:Zeb Delarosa MD Location:[facility] Appointment Type:Cardiology Follow Up (FT) Appointment Date:10/31/2023 01:00:00 PM Scheduled Provider:Zeb Delarosa MD Location:[facility] Appointment Type:Cardiology Follow Up (FT) Future Scheduled Tests Laboratory* Basic Metabolic Panel 05/06/23 * CBC w/ Auto Diff 05/06/23 [facility] Plan note Future Appointments Appointment Date:10/31/2023 01:00:00 PM Scheduled Provider:Zeb Delarosa MD [facility] Appointment Type:Cardiology Follow Up (FT) Future Scheduled Tests Laboratory* Basic Metabolic Panel 05/06/23 * CBC w/ Auto Diff 05/06/23 [facility] note Future Appointments Appointment Date:10/31/2023 01:00:00 PM Scheduled Provider:Zeb Delarosa MD [facility] Appointment Type:Cardiology Follow Up (FT) Future Scheduled Tests Laboratory* B-Type Natriuretic Peptide 06/16/23 * Basic Metabolic Panel 05/06/23 * Basic Metabolic Panel 06/16/23 * Basic Metabolic Panel 07/25/23 * CBC w/ Auto Diff 05/06/23 [facility] note Future Appointments Appointment Date:10/27/2023 10:00:00 AM Scheduled Provider: [facility] Type:CV Holter/Event (FT) Appointment Date:11/11/2023 09:00:00 AM Scheduled Provider:Tylor Knight MD [facility] Type:Cardiology Follow Up (FT) Future Scheduled Tests Laboratory* B-Type Natriuretic Peptide 06/16/23 * Basic Metabolic Panel 05/06/23 * Basic Metabolic Panel 06/16/23 * Basic Metabolic Panel 07/25/23 * CBC w/ Auto Diff 05/06/23 [facility] note Future Appointments Appointment Date:11/11/2023 09:00:00 AM Scheduled Provider:Tylor Knight MD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
[2024-01-21 15:10] LABS: Antinuclear Antibodies, IFA NEGATIVE
[2024-01-21 15:12] LABS: Aldolase 3.9 U/L
== END 2024-01-16 10:25 | disposition home or self-care (01) ==
LOC: LAB 01-20 10:24
PROVIDERS: PCP Family Medicine; Visit Provider Nurse Practitioner Family
DX: R29.898 Other symptoms and signs involving the musculoskeletal system (principal)
CPT/HCPCS: 36415; 82085; 82550; 83874; 84443; 86038

== ENCOUNTER 2024-03-03 14:19 | Outpatient (OUT) | payer OTHER, SELFPAY ==
[2024-03-03 14:29] LABS: Hematocrit 39.9 % (42.0-54.0); Hemoglobin 13.2 g/dL (14.0-18.0); Mean Corpuscular HGB Conc 33.1 g/dL (29.9-35.2); Mean Corpuscular Hemoglobin 31.7 pg (25.9-34.0); Mean Corpuscular Volume 95.9 fL (80.0-94.0); Mean Platelet Volume 9.6 fL (9.5-13.5); Platelet Count 361 10^3/uL (150-450); Red Blood Count 4.16 10^6/uL (4.70-6.10); Red Cell Distribution Width 14.1 % (11.0-15.0); White Blood Count 13.5 10^3/uL (4.0-11.0)
--- OUTSIDE RECORDS SUMMARY | 2024-03-03 14:38 | XMS_ITS | CCD ---
Author Organization [facility] Care Team Providers Care Advertising Associate Name Role Phone TAN YONY Tenisha Unavailable Unavailable No Family, Physician Unavailable Unavailable JOSE KOROMA Unavailable Unavailable No Family, Physician Unavailable Unavailable Ele Peoples Family Provider Claudia Mckenzie Primary Care Provider Claudia Mckenziendtenisha Cloud Attending Provider Ele Peoples Family Provider Claudia Mckenzie Primary Care Provider Claudia Mckenziendtenisha Cloud Attending Provider [phone] Diana Peoples Consulting Unavailable Mckenzie, Marie Magno. [...] MD Ronaldo Castro Attending Provider MD Arnaldo [facility] Emergency Provider MD Ronaldo Castro Admit Provider MD Moreno Barrera Primary Care Provider MD Ronaldo Castro Attending Provider MD Moreno Barrera Primary Care Provider MD Lino Floyd Attending Provider [phone] MD Ronaldo Castro Attending Provider CHEYENNE HORN Admitting Unavailable CHEYENNE HORN Attending Unavailable MORENO BARRERA Primary Care Unavailable Moreno Barrera MD Primary Care Provider Cheyenne Horn MD Unavailable CHEYENNE HORN Attending Unavailable MORENO BARRERA Primary Care Unavailable LESVIA BUTLER Attending Unavailable LESVIA BUTLER Referring Unavailable ANGELA GARZA Attending Unavailable ANGELA GARZA Referring Unavailable AVERYJENNIFER Attending Unavailable BENNIE, JENNIFER Attending Unavailable BENNIE, JENNIFER Attending Unavailable AVERY, JENNIFER Attending Unavailable Moreno Barrera MD Primary Care Provider NONE, XXXX Referring Unavailable Kirnus, Tylor D Attending Unavailable NONE, XXXX Referring Unavailable Zeb Delarosa Attending Unavaila ble Kirnus, Tylor D Attending Unavailable NONE, XXXX Referring Unavailable Kirnus, Tylor D Admitting Unavailable Kirnus, Tylor D Attending Unavailable Kirnus, Tylor D Referring Unavailable Zeb Delarosa Attending Unavaila Zeb Rivera Referring Unavaila Zeb Rivera Admitting Unavaila Zeb Rivera Consulting Unavaila Zeb Rivera Consulting Unavaila Zeb Rivera Attending Unavaila Zeb Rivera Referring Unavaila Zeb Rivera Admitting Unavaila ble Montalvo Basececilia Gilbert Admitting Unavailable Montalvo, Basem GRaymond Attending Unavailable Kirnus, Tylor D Referring Unavailable JENNIFER AVERY Referring Unavail able Zeb Delarosa Attending Unavaila ble NONE, XXXX Referring Unavailable Kirnus, Tylor D Attending Unavailable NONE, XXXX Referring Unavailable Kirnus, Tylor D Admitting Unavailable Kirnus, Tylor D Attending Unavailable NONE, XXXX Referring Unavailable Kirnus, Tylor D Attending Unavailable NONE, XXXX Referring Unavailable Kirnus, Tylor D Admitting Unavailable Kirnus, Tylor D Attending Unavailable NONE, XXXX Referring Unavailable Zeb Delarosa Attending Unavaila Moreno Stevens Primary Care Unavailable Lino Floyd Attending Unavailable Amalia Burleson Consulting Unavailable Ronaldo Castro Admitting Unavailab Chapito Cummings Consulting Unavailable Lashon Stoner Consulting Unavailable Jose Hairston Consulting Unavail able Avril Fox Consulting Unavailable Clrak Sim Consulting Unavailab Suki Sanchez Consulting Unavailable Neris Vences Consulting Unavailable Charlie Benítez Consulting Unavailab Estephanie Limon Consulting Unavailable Marie Lara Consulting Unavailable Moreno Barrera Primary Care Unavailable Jennifer Avery Attending Unavailable Jennifer Avery Admitting Unavailable Moreno Barrera Primary Care Unavailable Ronaldo Castro Attending Unavailab Ronaldo Kolb Admitting Unavailab le Allergies Allergy Classification Reported Allergen(s) Allergy Type Date of Onset Reaction(s) Facility (6 sources) DULoxetine Drug Allergy 4 [facility] Work Phone: (1 source) No Known Medication Allergies; Translations: [No Known Medication Allergies] Propensity to adverse reactions (disorder) [facility] Repository (1 source) Unable to Assess Drug allergy (disorder) 4 [facility] Repository Medications Current Medications Medication Drug Class(es) Dates Sig (Normalized) Sig (Original) Tylenol (20 sources) Start: 03-20-2023 Tylenol Refill s(s) 0 [...] for mild pain (1 - 3). Active [id number] 200 actuat albuterol 0.09 mg/actuat metered dose [...] Active amiodarone hydrochloride 200 mg oral tablet (3 sources) Antiarrhythmic Start: 12-30-2023 take 1 tablet by mouth once daily amiodarone 200 mg Tab 200 mg = 1 tab(s), Oral, Daily, # 30 tab(s), Refills(s) 5, Pharmacy: [facility]/pharmacy #[id number], 178, cm, 12/30/23 14:47:00 EDT, Height/Length [...] days, # 25 tab(s), Refills(s) 0, Pharmacy: [facility]/pharmacy #[id number], 178, cm, 12/30/23 14:47:00 EDT, Height/Length Dosing, 95.2, kg, 12/30/23 14:47:00 EDT, Weight Dosing Start Date: 12/30/23 Status: Ordered amphetamine aspartate 5 mg / amphetamine sulfate 5 mg / dextroamphetamine saccharate 5 mg / dextroamphetamine sulfate 5 mg oral tablet (7 sources) Central Nervous System Stimulant take 1 tablet by mouth in the morning amphetamine-dextroamphetamine (Adderall) 20 MG tablet Take 20 mg by mouth in the morning and 20 mg before bedtime. Active apixaban 5 mg oral tablet (20 sources) Factor Xa Inhibitor Start : 10-15 take 1 tablet by mouth every twelve hours Eliquis 5 mg tablet Take 1 tablet (5 mg) by mouth every 12 hours. 10/16/2023 Active Start: 08-15-2023 take 1 tablet by sabrina th twice daily Eliquis 5 mg oral tablet 5 mg = 1 tab(s), Oral, BID, # 180 tab(s), Refills(s) 1, Pharmacy: [facility]/pharmacy #[id number], 178, cm, 08/11/23 14:57:00 EDT, Height/Length Dosing, 99, kg, 08/11/23 14:57:00 EDT, Weight Dosing Start Date: 08/15/23 Status: Ordered Start: 05-05-2023 take 1 tablet by sabrina twice daily Eliquis 5 mg oral tablet 5 mg = 1 tab(s), Oral, BID, # 60 tab(s), Refills(s) 3, Pharmacy: [facility]/pharmacy #[id number], 178, cm, 05/02/23 13:12:00 EST, Height/Length Dosing, 102, kg, 05/02/23 13:12:00 EST, Weight Dosing Start Date: 05/05/23 Status: Ordered ARIPiprazole 10 mg oral tablet (6 sources) Atypical Antipsychotic Start: 11-13-2023 take 1 tablet by mouth at bedtime ARIPiprazole (Abilify) 10 MG tablet Take 10 mg by mouth at bedtime 11/13/2023 Active aspirin 81 mg chewable tablet (10 sources) Platelet Aggregation Inhibitor, Nonsteroidal Anti-inflammatory Drug Start: 03-20-2023 aspirin 81 MG chewable tablet Chew 81 mg 03/20/2023 Active atorvastatin 40 mg oral tablet (18 sources) HMG-CoA Reductase Inhibitor Start: 07-28-2023 take 1 tablet by mouth once daily Lipitor 40 MG tablet Take 40 mg by mouth Daily 07/28/2023 Active busPIRone hydrochloride 5 mg oral tablet (12 sources) Start: 11-12-2023 take 1 tablet by [...] BID, # 60 tab(s), Refills(s) 6, Pharmacy: [facility]/pharmacy #[id number], 178, cm, 08/11/23 14:57:00 EDT, Height/Length [...] 60 tab(s), Refills(s) 3, Pharmacy: [facility]/pharmacy #[id number], 178, cm, 05/02/23 13:12:00 EST, Height/Length Dosing, 102, kg, 05/02/23 13:12:00 EST, Weight Dosing Start Date: 05/05/23 Status: Ordered Start: 05-05-2023 take 1 tablet by sabrina twice daily carvedilol 3.125 mg Tab 3.125 mg = 1 tab(s), Oral, BID, # 60 tab(s), Refills(s) 3, Pharmacy: [facility]/pharmacy #[id number], 178, cm, 05/02/23 13:12:00 EST, Height/Length [...] DULoxetine 30 mg delayed release oral capsule (7 sources) Serotonin and Norepinephrine Reuptake Inhibitor Start: 04-22-2023 take 1 capsule by mouth once daily DULoxetine (Cymbalta) [address] capsule Take 30 mg by mouth Daily 04/22/2023 Active FLUoxetine 20 mg oral capsule (10 sources) Serotonin Reuptake Inhibitor Start: 11-27-2023 take 1 capsule by mouth in the morning FLUoxetine (PROzac) 20 MG capsule Take 20 mg by mouth in the morning. 11/27/2023 Active Start: 08-22-2020 End: 02-12-2021 take 1 capsule by mouth once daily Fluoxetine (Prozac) 10 mg capsule Discontinued 10 MG PO DAILY August 22, 2020 9:15am February 12, 2021 8:50am gabapentin 100 mg oral capsule (9 sources) Anti-epileptic Agent Start: 03-20-2023 End: 01-07-2024 gabapentin (Neurontin) 100 MG capsule Refills(s) 0 03/20/2023 Active losartan potassium 50 mg oral tablet (10 sources) Angiotensin 2 Receptor Larry Start: 05-30-2023 take 1 tablet by mouth once daily losartan (Cozaar) 50 MG tablet Take 50 mg by mouth Daily 05/30/2023 Active Start: 05-05-2023 take 1 tablet by sabrina th once daily losartan 25 mg Tab 25 mg = 1 tab(s), Oral, Daily, # 30 tab(s), Refills(s) 3, Pharmacy: [facility]/pharmacy #[id number], 178, cm, 05/02/23 13:12:00 EST, Height/Length Dosing, 102, kg, 05/02/23 13:12:00 EST, Weight Dosing Start Date: 05/05/23 Status: Ordered Methocarbamol (7 sources) Muscle Relaxant Methocarbamol (ROBAXIN IJ) Active metoprolol tartrate 25 mg oral tablet (10 sources) beta-Adrenergic Larry Start: 03-20-20 metoprolol tartrate (Lopressor) 25 MG tablet Take 25 mg by mouth 03/20/2023 Active nicotine 2 mg chewing gum (2 sources) Cholinergic Nicotinic Agonist Start: 11-12-19 Nicotine (Polacrilex) Active 2 MG BUCCAL Q2H November 12, 2023 12:00am [place] (No Known Home Meds) (1 source) Start: 03-12-20 [place] (No Known Home Meds) Active 0 March 12, 2021 8:12am oxyCODONE (7 sources) Opioid Agonist oxyCODONE HCl (ROXICODONE PO) Active Polyethylene Glycols (7 sources) POLYETHYLENE GLY COL 3350 PO Active polymyxin b 15752 unt/ml / trimethoprim 1 mg/ml ophthalmic solution [...] mg / valsartan 26 mg oral tablet (19 sources) Angiotensin 2 Receptor Larry Start: 10-17-19 take 1 tablet by mouth every twelve hours Entresto 24-26 mg tablet Take 1 tablet by mouth every 12 hours. 2023 Active Start: 06-14-2023 Entresto 24 mg -26 mg oral tablet 1 tab(s), Oral, BID, 60 tab(s), Refill(s) 6, [facility]/pharmacy #[id number], 178, cm, 05/30/23 15:00:00 EST, Height/Length Dosing, 101.3, kg, 05/30/23 15:00:00 EST, Weight Dosing Start Date: 06/14/23 Status: Ordered sacubitril-valsa rtan (Entresto) 24-26 MG tablet Take 1 tablet by mouth in the morning and 1 tablet before bedtime. 1 TABLET . Active sertraline 50 mg oral tablet (11 sources) Serotonin Reuptake Inhibitor Start: 11-06-2023 take 1 tablet by mouth once daily sertraline (Zoloft) 50 MG tablet Take 50 mg by mouth Daily 11/06/2023 Active Start: 02-12-2021 End: 03-12-2021 take 50 mg by mouth once daily Sertraline Discontinued 50 MG PO daily February 12, 2021 9:45am March 12, 2021 9:01am spironolactone 25 mg oral tablet (8 sources) Aldosterone Antagonist Start: 05-30-2023 take 1 tablet by mouth once daily spironolactone 25 mg Tab 25 mg = 1 tab(s), Oral, Daily, # 30 tab(s), Refills(s) 6, Pharmacy: [facility]/pharmacy #[id number], 178, cm, 05/30/23 15:00:00 EST, Height/Length [...] stress disorder, unspecified] Onset: 02-12-2021 Chronic Asthma (19 sources) Exacerbation of mild persistent asthma; Translations: [Mild persistent asthma with (acute) exacerbation] Chronic Attention-deficit, conduct, and disruptive behavior disorders (1 source) Attention deficit hyperactivity disorder; Translations: [Attention-deficit hyperactivity disorder, unspecified type] 12-24-2023 Chronic Blindness and vision defects (4 sources) Blurring of visual image; Translations: [Other visual disturbances] 01-06-2024 Episodic Cardiac dysrhythmias (20 sources) Atrial fibrillation; Translations: [Unspecified atrial fibrillation] Onset: 07-07-2023 05-08-2023 Chronic Coronary atherosclerosis and other heart disease (2 sources) Coronary atherosclerosis; Translations: [Atherosclerotic heart disease of [place] coronary artery without angina pectoris] Onset: 08-11-2023 [...] limbs] 01-06-2024 Episodic Other connective tissue disease (4 sources) Increased muscle tone; Translations: [Other specified [...] 12-26-2023 12-26-2023 Episodic Other nervous system disorders (9 sources) Bilateral carpal tunnel syndrome; Translations: [Carpal tunnel syndrome, bilateral upper limbs] Onset: 07-07-2023 07-07-2023 Chronic Other nervous system disorders (4 sources) Impaired cognition; Translations: [Other symptoms and [...] caused by tuberculosis or sexually transmitted disease) (4 sources) Cardiomyopathy; Translations: [Other cardiomyopathies] Onset: 08-11-2023 [...] between 19-24, adult] Episodic Residual codes; unclassified (14 sources) Memory impairment 03-20-2023 Episodic Skin and subcutaneous tissue infections (2 sources) Cellulitis of right lower limb; Translations: [Cellulitis of right lower limb] Onset: 12-03-2021 Episodic Spondylosis; intervertebral disc disorders; other back problems (7 sources) Degeneration of cervical intervertebral disc; Translations: [...] Systemic lupus erythematosus and connective tissue disorders (14 sources) Autoimmune disease 03-20-2023 Chronic Unclassified (7 [...] Onset: 04-28-2017 Episodic Other nervous system disorders (7 sources) Numbness and tingling sensation of skin; Translations: [Anesthesia of skin] Onset: 07-07-2023 07-07-2023 Episodic Other nervous system disorders (7 sources) Paresthesia; Translations: [Paresthesia of skin] Onset: 07-07-2023 07-07-2023 Episodic Spondylosis; intervertebral disc disorders; other back problems (20 sources) Radiculopathy, cervical region; Translations: [Spinal stenosis, [...] Facility Heart and Vascular Office/Cl inic Noteon 01-30-2024 Heart and Vascular Office/Clinic Note Heart and Vascular Office/Clinic Note Chief Complaint Fri f/u - afib History of Present Illness The patient [...] the patient's insurance did not cover it . At my last appointment, the patient was started on amiodarone load and maintenance. On Eliquis for cardioembolic protection. He presents for scheduled follow-up appointment. He reports no new symptoms. Apparently, there was some confusion regarding dose of amiodarone. The patient has been taking 400 mg daily. He just received an approval for a cryoablation procedure which he is going to schedule. Review of Systems ROS - Provider Constitutional: no fever, no chills, no fatigue Skin:no rash, no lesions ENMT: no [...] infections Physical Exam Vitals & Measurements HR: 53(Peripheral) RR: 16 BP: 128/78 SpO2: 94% HT: 70 in HT: 178 cm WT: 100 kg WT: 220 lb BMI: 31.56 General: alert, no acute distress Neck: Supple, [...] 1. Atrial fibrillation (I48.91: Unspecified atrial fibrillation) By auscultation, still in atrial fibrillation, but the rate is better controlled. Continue Eliquis. Continue amiodarone for the time being; would not commit the patient for a long wall shear operator amiodarone therapy. 2. Cardiomyopathy (I42.9: Cardiomyopathy, unspecified) Likely, tachycardia induced. I would not pursue further escalation of the Entresto pending cryoablation procedure. This can be done afterwards. Follow-up No qualifying data available Following cryoablation procedure Problem List/Past Medical History Ongoing Smoker Historical Anxiety Asthma Autoimmune disorder Hypertension Memory Issues Procedure/Surgical History Cardioversion (07/31/2023), Catheterization of left heart (05/08/2023), H/O splenectomy, Hip replacement, Lung. Medications albuterol amiodarone 200 mg Tab, 200 mg= 1 tab(s), Oral, Daily, 5 refills busPIRone 5 mg Tab Coreg 6.25 mg [...] within last 30 days Smokeless Tobacco Use:., 01/30/2024 Family History Heart disease: Father. Normal [facility] Comment on above: Result Comment: Elec tronically Signed By: Antonia RUBIO, Tylor Potter\.br\Date and Time Signed: 01/30/24 14:54 EST ALL MYOGLOBINon 01-16-2024 Myoglobin [Mass/Vol] 48 ng/mL 16 - 96 ng/mL [facility] ALL THYROID STIM HORMONEon 1 TSH Qn 3.05 m[IU]/L [facility] CKon 01-16-2024 CK [Catalytic activity/Vol] 102 U/L 39 - 308 U/L [facility] No Panel Informationon 01-15 [facility] Heart and Vascular Office/Cl inic Noteon [...] 12/30/2023 Family History Heart disease: Father. Normal [facility] Comment on above: Result Comment: Elec tronically Signed By: Antonia RUBIO, Tylor Potter\.br\Date and Time Signed: 12/30/23 15:02 EDT ECG 12 Leadon 12-26-2023 See scan [facility] Work Phone: [facility] Work Phone: Heart and Vascular Office/Cl inic [...] family reason. More recently, he was at [facility] for some rehabilitation in was advised to [...] 11/28/2023 Family History Heart disease: Father. Normal [facility] Comment on above: Result Comment: Elec tronically Signed By: Antonia RUBIO, Tylor Potter\.br\Date and Time Signed: 11/28/23 12:09 EDT Cholesterol [Mass/volume] in Serum or PlasmaOrdered By: Ronaldo Castro on 11-07-2023 Cholesterol [Mass/Vol] 110 mg/dL Low 140-200 [facility] Comment on above: Chol less than 200 m g/dl low riskChol 201-239 mg/dl borderline riskChol 240 mg/dl and greater high risk Result Comment: Chol less than 200 mg/dl low risk Chol 201-239 mg/dl borderline risk Chol 240 mg/dl and greater high risk Performed By: #### V [id number], LIPID, TSH3 wRFLX ####[facility] [id number] [place] [address] [facility] Cholesterol in LDL Calc [Mas s/Vol]Ordered By: Ronaldo Castro on 11-07-2023 Cholesterol in LDL [Mass/Vol] 61 mg/dL 0-100 [facility] Comment on above: LDL ATP III CLASSIFI CATIONLDL less than 100 mg/dL OptimalLDL 100-129 mg/dL Near or above optimalLDL 130-159 mg/dL Borderline highLDL 160-189 mg/dL HighLDL greater than 189 mg/dL Very high Cholesterol in VLDL Calc [Ma ss/Vol]Ordered By: Ronaldo Castro on 11-07-2023 Cholesterol in VLDL [Mass/Vol] 16 mg/dL [facility] ECG 12 lead ECGon 11-07-2023 ECG 12 lead ECG [facility] Main [address] [address] Electrocardiograph Report Signed Patient: Juan Carlos Noguera MR#: [id number] [birth year] : 1970 Acct:[id number] Age/Sex: 53 / M ADM Date: 11/06/23 Loc: Room: [address] [place] [address] Type: ADM IN Attending Dr: Ronaldo Castro [...] in Inferior leads Confirmed by Salvador Lira ([id number]) on 11/07/2023 10:18:08 AM Referred By: Electronically Signed By: Salvador Lira Transcribed By: MUS Signed By Salvador Lira MD 11/07/23 1018 Normal [facility] ECG 12 lead ECG [facility] Main [address] [address] Electrocardiograph Report Signed Patient: Juan Carlos Noguera MR#: [id number] [birth year] : 1970 Acct:[id number] Age/Sex: 53 / M ADM Date: 11/06/23 Loc: 1S Room: [address] [place] [address] Type: ADM IN Attending Dr: Ronaldo Castro [...] previous ECGs available Confirmed by Salvador Lira ([id number]) on 11/07/2023 1:07:23 PM Referred By: Electronically Signed By: Salvador Lira Transcribed By: MUS Signed By Salvador Lira MD 11/07/23 1307 Normal [facility] Lipid Panelon 11-07-2023 LDL Cholesterol,Calculated 61 mg/dL Normal 0-100 [facility] Comment on above: Result Comment: LDL ATP III CLASSIFICATION LDL less than 100 mg/dL Optimal LDL 100-129 mg/dL Near or above optimal LDL 130-159 mg/dL Borderline high LDL 160-189 mg/dL High LDL greater than 189 mg/dL Very high Performed By: #### V [id number], LIPID, TSH3 wRFLX ####[place] [address] [place] [id number] [facility] Triglyceride w/Reflex 84 mg/dL Normal 0-149 [facility] Comment on above: Result Comment: TRIG ATP III CLASSIFICATION TRIG less than 150 mg/dL Normal TRIG 150-199 mg/dL Borderline high TRIG 200-500 mg/dL High TRIG greater than 500 mg/dL Very high Standard traceable to the Center for Disease Conrtrol and Prevention (CDC) test method. Performed By: #### V [id number], LIPID, TSH3 wRFLX ####[facility] [id number] [place] [address] [facility] VLDL CHOLESTEROL 16 mg/dL Normal [facility] Comment on above: Performed By: #### V [id number], LIPID, TSH3 wRFLX ####[facility] Serum or plasma high density lipoprotein (HDL) cholesterol measurementOrdered By: Ronaldo Castro on 11-07-2023 Cholesterol in HDL [Mass/Vol] 32 mg/dL Normal 23-92 [facility] Comment on above: HDL CHOL ATP-III CLA SSIFICATION Cardiovascular RiskHDL > or equal to 60 mg/dL LOWHDL < 40 mg/dL HIGH Result Comment: HDL CHOL ATP-III CLASSIFICATION Cardiovascular Risk HDL > or equal to 60 mg/dL LOW HDL < 40 mg/dL HIGH Performed By: #### V [id number], LIPID, TSH3 wRFLX ####[address] Serum or plasma total choles terol/high density lipoprotein (HDL) cholesterol mass ratOrdered By: Ronaldo Castro on 11-07-2023 Cholesterol.total/Barbara sterol in HDL [Mass ratio] 3.4 {ratio} Normal <5.0 [facility] Comment on above: Performed By: #### V [id number], LIPID, TSH3 wRFLX ####[address] Thyroid Stim Hormone w/Rflxo n 11-07-2023 Thyroid Stim Hormone w/Rflx 0.87 u[iU]/mL Normal 0.45-5.33 [facility] Comment on above: Performed By: #### V [id number], LIPID, TSH3 wRFLX ####[address] Thyrotropin [Units/volume] i n Serum or PlasmaOrdered By: Ronaldo Castro on 11-07-2023 TSH Qn 0.87 m[IU]/L 0.45-5.33 [facility] Triglyceride [Mass/volume] i n Serum or PlasmaOrdered By: Ronaldo Castro on 11-07-2023 Triglyceride [Mass/Vol] 84 mg/dL 0-149 [facility] Comment on above: TRIG ATP III CLASSIF ICATIONTRIG less than 150 mg/dL NormalTRIG 150-199 mg/dL Borderline highTRIG 200-500 mg/dL High TRIG greater than 500 mg/dL Very highStandard traceable to the Center for Disease Conrtrol and Prevention (CDC) test method. Vitamin D 25 Hydroxy Totalon 11-07-2023 Vitamin D 25 Hydroxy Total 28.2 ng/mL Low 30-100 [facility] Comment on above: Result Comment: ULISES MIN D STATUS 25(OH)VITAMIN D RANGE (ng/mL) Deficient <20 Insufficient 20 to <30 Sufficient 30 to 100 Reference: Savannah Villalobos, Sindi RAMACHANDRAN, et al. Evaluation,treatment, and prevention of vitamin D deficiency; an Endocrine Society clinical practice guideline. JCEM. 2010; 96(7):1911-. PERFORMED BY: [facility] [address] [place] [address] PATHOLOGIST CHARTER DRIVER DIMAS BUCKLEY M.D. Performed By: #### V [id number], LIPID, TSH3 wRFLX ####[facility] [id number] [place] [id number] [facility] Vitamin D+Metabolites [Mass/ volume] in Serum or PlasmaOrdered By: Ronaldo Castro on 11-07-2023 Vitamin D+Metabolites [Mass/Vol] 28.2 ng/mL Low 30-100 [facility] Comment on above: VITAMIN D STATUS [...] ALT [Catalytic activity/Vol] 14 U/L Normal 7-52 [facility] Comment on above: Performed By: #### C MP, ETOH, CBC #### [facility] [address] [place] [id number] [place] Albumin [Mass/volume] in Ser um or Plasma by Bromocresol green (BCG) dye binding methoOrdered By: Gem Mcintosh on 11-06-2023 Albumin BCG dye [Mass/Vol] 4.3 g/dL 3.5-5.7 [facility] Alkaline phosphatase [Enzyma tic activity/volume] in Serum or PlasmaOrdered By: Gem Mcintosh on 11-06-2023 ALP [Catalytic activity/Vol] 61 U/L Normal 34-104 [facility] Comment on above: Performed By: #### C MP, ETOH, CBC #### [address] Amphetamine Screen Ql (U)Ord ered By: Gem Mcintosh on 11-06-2023 Amphetamines Ql (U) Negative Negative [facility] Aspartate aminotransferase [ Enzymatic activity/volume] in Serum or PlasmaOrdered By: Gem Mcintosh on 11-06-2023 AST [Catalytic activity/Vol] 15 U/L Normal 13-39 [facility] Comment on above: Performed By: #### C MP, ETOH, CBC #### [address] Automated basophil %Ordered By: Gem Mcintosh on 11-06-2023 Basophils/100 WBC (Bld) 1.2 % Normal . [facility] Comment on above: Performed By: #### C MP, ETOH, CBC #### [address] [address] Automated basophil countOrde red By: Gem Mcintosh on 11-06-2023 Basophils (Bld) [#/Vol] 0.2 10*3/uL Normal 0.0-0.2 [facility] Comment on above: Result Comment: PERF ORMED BY: [place] [address] PATHOLOGIST CHARTER DRIVER DIMAS BUCKLEY M.D. Performed By: #### C MP, ETOH, CBC #### [address] Automated blood monocyte cou ntOrdered By: Gem Mcintosh on 11-06-2023 Monocytes (Bld) [#/Vol] 1.3 10*3/uL High 0.0-0.8 [facility] Comment on above: Performed By: #### C MP, ETOH, CBC #### [address] Automated eosinophil %Ordere d By: Gem Mcintosh on 11-06-2023 Eosinophils/100 WBC (Bld) 1.2 % Normal . [facility] Comment on above: Performed By: #### C MP, ETOH, CBC #### [address] Automated eosinophil countOr dered By: Gem Mcintosh on 11-06-2023 Eosinophils (Bld) [#/Vol] 0.2 10*3/uL Normal 0.0-0.45 [facility] Comment on above: Performed By: #### C MP, ETOH, CBC #### [address] Automated epithelial cells c ount in urine sediment (number/area)Ordered By: Gem Mcintosh on 11-06-2023 Epithelial cells Auto (Urine sed) [#/Area] 1-2 [HPF] 0-2 [facility] Automated monocyte %Ordered By: Gem Mcintosh on 11-06-2023 Monocytes/100 WBC (Bld) 9.6 % Normal . [facility] Comment on above: Performed By: #### C MP, ETOH, CBC #### [address] Automated neutrophil %Ordere d By: Gem Mcintosh on 11-06-2023 Neutrophils/100 WBC (Bld) 66.4 % Normal . [facility] Comment on above: Performed By: #### C MP, ETOH, CBC #### [address] Bacteria [Presence] in Urine by AutomatedOrdered By: Gem Mcintosh on 11-06-2023 Bacteria Auto Ql (U) None seen [HPF] None Seen [facility] Barbiturates [Presence] in U rine by Screen methodOrdered By: Gem Mcintosh on 11-06-2023 Barbiturates Screen Ql (U) Negative Negative [facility] Benzodiazepines Screen Ql (U )Ordered By: Gem Mcintosh on 11-06-2023 Benzodiazepines Ql (U) Negative Negative [facility] Benzoylecgonine [Presence] i n Urine by Screen methodOrdered By: Gem Mcintosh on 11-06-2023 Benzoylecgonine Screen Ql (U) Negative Negative [facility] Bilirubin Test strip Ql (U)O rdered By: Gem Mcintosh on 11-06-2023 Bilirubin Ql (U) Negative Negative [facility] Bilirubin.total [Mass/volume ] in Serum or PlasmaOrdered By: Gem Mcintosh on 11-06-2023 Bilirubin [Mass/Vol] 0.6 mg/dL Normal 0.3-1.0 [facility] Comment on above: Performed By: #### C MP, ETOH, CBC #### [facility] [address] COVID CepheidOrdered By: Emigdio Mcintosh on 11-06-2023 SARS-CoV-2 (COVID-19) Ab IA Ql Negative Negative [facility] Comment on above: This is a duplicate Cepheid Xpert Xpress CoV-2/Flu/RSV Plus RNA by RT-PCR result to be used for statistical tracking purpose only. SARS-CoV-2 (COVID-19) RNA ARAVIND+probe Ql (Unsp spec) [facility] COVID-19 / Flu A/B / RSV [...] or Cepheid Disclaimer revoked sooner. PERFORMED BY: [facility] [address] [place] [address] PATHOLOGIST CHARTER DRIVER DIMAS BUCKLEY M.D. Normal [facility] Comment on above: Performed By: #### C OVID19 FLU RSV, CEPHEID NEG ####[facility] [address] Calcium [Mass/volume] in Ser um or PlasmaOrdered By: Gem Mcintosh on 11-06-2023 Calcium [Mass/Vol] 9.0 mg/dL Normal 8.6-10.3 [facility] Comment on above: Performed By: #### C MP, ETOH, CBC #### [facility] [address] [place] [id number] [facility] Cannabinoids [Presence] in U rine by Screen methodOrdered By: Gem Mcintosh on 11-06-2023 Cannabinoids Screen Ql (U) Negative Negative [facility] Comment on above: These are unconfirme d results and should not be used for legal purposes. Drug Cut-Off Concentration: AMPH 1000 ng/mL WILLIAM 200 ng/mL SALIMA 200 ng/mL COCM 300 ng/mL OP 300 ng/mL PCP 25 ng/mL THC 20 ng/mL Carbon dioxide, total [Moles /volume] in Serum or PlasmaOrdered By: Gem Mcintosh on 11-06-2023 CO2 [Moles/Vol] 29.4 mmol/L Normal 21.0-31.[address] [facility] Comment on above: Performed By: #### C MP, ETOH, CBC #### [facility] [address] [place] [address] [place] Cepheid COVID PCR Negativeon 11-06-2023 SARS-CoV-2 (COVID-19) RNA ARAVIND+probe Ql (Unsp spec) Negative Normal Negative [facility] Comment on above: Result Comment: This is a duplicate Cepheid Xpert Xpress CoV-2/Flu/RSV Plus RNA by RT-PCR result to be used for statistical tracking purpose only. PERFORMED BY: [place] [address] PATHOLOGIST CHARTER DRIVER DIMAS BUCKLEY M.D. Performed By: #### C OVID19 FLU RSV, CEPHEID NEG ####[facility] [place] [address] [place] Chloride [Moles/volume] in S seamus or PlasmaOrdered By: Gem Mcintosh on 11-06-2023 Chloride [Moles/Vol] 102 mmol/L Normal 98-107 [facility] Comment on above: Performed By: #### C MP, ETOH, CBC #### [facility] [address] [place] [address] [place] Color of Urine by AutoOrdere d By: Gem Mcintosh on 11-06-2023 Color (U) Yellow Normal Yellow [facility] Comment on above: Order Comment: Name Collection Type:: Clean-Voided Midstream Performed By: #### U RDS, ADDONUAPLUS #### [place] [address] [place] Complete Blood Count Auto Di ffon 11-06-2023 Mean Corpuscular HGB Conc 33.8 g/dL Normal 32.5-35.6 [facility] Comment on above: Performed By: #### C MP, ETOH, CBC #### [address] Monocytes/100 WBC (Bld) 16.55 % Normal 0.00-20.00 [facility] Comment on above: Performed By: #### C MP, ETOH, CBC #### [address] NRBC% 0.1 /100{WBC} Normal 0-0.5 [facility] Comment on above: Performed By: #### C MP, ETOH, CBC #### [address] Comprehensive Metabolic Pane du 11-06-2023 Albumin [Mass/Vol] 4.3 g/dL Normal 3.5-5.7 [facility] Comment on above: Performed By: #### C MP, ETOH, CBC #### [address] Creatinine Clr Calc Pharmacy 99.02 Normal [facility] Comment on above: Result Comment: PERF ORMED BY: [place] [address] PATHOLOGIST CHARTER DRIVER DIMAS BUCKLYE M.D. Performed By: #### C MP, ETOH, CBC #### [place] [address] [place] GFR/1.73 sq M.predicted MDRD (S/P/Bld) [Vol rate/Area] mL/min/{1.73_m2} Normal [facility] Comment on above: Performed By: #### C MP, ETOH, CBC #### [address] Creatinine [Mass/volume] in Serum or PlasmaOrdered By: Gem Mcintosh on 11-06-2023 Creatinine [Mass/Vol] 0.98 mg/dL Normal 0.70-1.30 [facility] Comment on above: Performed By: #### C MP, ETOH, CBC #### [place] [address] [place] Dipstick and Microscopicon 0 11-06-2023 Appearance (U) Clear Normal Clear [facility] Comment on above: Order Comment: Name Collection Type:: Clean-Voided Midstream Performed By: #### U RDS, ADDONUAPLUS #### [place] [address] [place] Bacteria,Urine None Seen Normal None Seen [facility] Comment on above: Order Comment: Name Collection Type:: Clean-Voided Midstream Performed By: #### U RDS, ADDONUAPLUS #### [place] [address] [place] Bilirubin,Urine Negative Normal Negative [facility] Comment on above: Order Comment: Name Collection Type:: Clean-Voided Midstream Performed By: #### U RDS, ADDONUAPLUS #### [address] Glucose Ql (U) Normal Normal Normal [facility] Comment on above: Order Comment: Name Collection Type:: Clean-Voided Midstream Performed By: #### U RDS, ADDONUAPLUS #### [address] Hyaline Casts,Urine 0-8 Normal 0-8 [facility] Comment on above: Order Comment: Name Collection Type:: Clean-Voided Midstream Result Comment: PERF ORMED BY: [place] [address] PATHOLOGIST CHARTER DRIVER DIMAS BUCKLEY M.D. Performed By: #### U RDS, ADDONUAPLUS #### [address] Ketones Ql (U) Trace High Negative [facility] Comment on above: Order Comment: Name Collection Type:: Clean-Voided Midstream Performed By: #### U RDS, ADDONUAPLUS #### [place] [address] [place] Leukocyte esterase Test strip Ql (U) Negative Normal Negative [facility] Comment on above: Order Comment: Name Collection Type:: Clean-Voided Midstream Performed By: #### U RDS, ADDONUAPLUS #### [place] [address] [place] Nitrite,Urine Negative Normal Negative [facility] Comment on above: Order Comment: Name Collection Type:: Clean-Voided Midstream Performed By: #### U RDS, ADDONUAPLUS #### [address] Occult Blood,Urine Negative Normal Negative [facility] Comment on above: Order Comment: Name Collection Type:: Clean-Voided Midstream Result Comment: PERF ORMED BY: [place] [address] PATHOLOGIST CHARTER DRIVER DIMAS BUCKLEY M.D. Performed By: #### U RDS, ADDONUAPLUS #### [address] RBC,Urine 1-2 Normal 0-4 [facility] Comment on above: Order Comment: Name Collection Type:: Clean-Voided Midstream Performed By: #### U RDS, ADDONUAPLUS #### [address] Specificy [place],Urine 1.017 Normal 1.001-1.030 [facility] Comment on above: Order Comment: Name Collection Type:: Clean-Voided Midstream Performed By: #### U RDS, ADDONUAPLUS #### [place] [address] [place] Squamous Epithelial Cell,Urine 1-2 Normal 0-2 [facility] Comment on above: Order Comment: Name Collection Type:: Clean-Voided Midstream Performed By: #### U RDS, ADDONUAPLUS #### [address] Urobilinogen,Urine Normal Normal Normal [facility] Comment on above: Order Comment: Name Collection Type:: Clean-Voided Midstream Performed By: #### U RDS, ADDONUAPLUS #### [address] WBC,Urine 1-2 Normal 0-4 [facility] Comment on above: Order Comment: Name Collection Type:: Clean-Voided Midstream Performed By: #### U RDS, ADDONUAPLUS #### [address] Drug Screen,Urineon 11-06-19 24 Amphetamine Screen,Urine Negative Normal Negative [facility] Comment on above: Performed By: #### U RDS, ADDONUAPLUS #### [address] Barbiturate Screen,Urine Negative Normal Negative [facility] Comment on above: Performed By: #### U RDS, ADDONUAPLUS #### [address] Benzodiazepines Screen,Urine Negative Normal Negative [facility] Comment on above: Performed By: #### U RDS, ADDONUAPLUS #### [address] Cannabinoid Screen,Urine Negative Normal Negative [facility] Comment on above: Result Comment: Thes e are unconfirmed results and should not be used for legal purposes. Drug Cut-Off Concentration: AMPH 1000 ng/mL WILLIAM 200 ng/mL SALIMA 200 ng/mL COCM 300 ng/mL OP 300 ng/mL PCP 25 ng/mL THC 20 ng/mL PERFORMED BY: [place] [address] PATHOLOGIST CHARTER DRIVER DIMAS BUCKLEY M.D. Performed By: #### U RDS, ADDONUAPLUS #### [address] Cocaine Screen,Urine Negative Normal Negative [facility] Comment on above: Performed By: #### U RDS, ADDONUAPLUS #### [place] [address] [place] Opiate Screen,Urine Negative Normal Negative [facility] Comment on above: Performed By: #### U RDS, ADDONUAPLUS #### [address] Phencyclidine Screen,Urine Negative Normal Negative [facility] Comment on above: Performed By: #### U RDS, ADDONUAPLUS #### [address] Erythrocyte distribution wid th [Ratio] by Automated countOrdered By: Gem Mcintosh on 11-06-2023 Erythrocyte distribution width (RBC) [Ratio] 13.6 % Normal 12.0-14.8 [facility] Comment on above: Performed By: #### C MP, ETOH, CBC #### [address] Erythrocytes [#/area] in Uri ne sediment by Automated countOrdered By: Gem Mcintosh on 11-06-2023 RBC Auto (Urine sed) [#/Area] 1-2 [HPF] 0-4 [facility] Erythrocytes [#/volume] in B lood by Automated countOrdered By: Gem Mcintosh on 11-06-2023 RBC (Bld) [#/Vol] 4.61 10*6/uL Normal 3.90-5.60 [facility] Comment on above: Performed By: #### C MP, ETOH, CBC #### [address] Ethanol [Mass/volume] in Ser um or PlasmaOrdered By: Gem Mcintosh on 11-06-2023 Ethanol [Mass/Vol] mg/dL Normal [facility] Comment on above: Performed By: #### C MP, ETOH, CBC #### [address] Ethanol [Mass/Vol] TNP [facility] Comment on above: Test not performed Ethyl Alcohol Profileon 10-22 Percent Ethanol Not performed Normal [facility] Comment on above: Result Comment: PERF ORMED BY: [place] [address] PATHOLOGIST CHARTER DRIVER DIMAS BUCKLEY M.D. Performed By: #### C MP, ETOH, CBC #### [address] Glucose [Mass/volume] in Ser um or PlasmaOrdered By: Gem Mcintosh on 11-06-2023 Glucose [Mass/Vol] 101 mg/dL High 70-100 [facility] Comment on above: ADA recommended refe rence rangeRandom Glucose Reference Range is dependent on time and content of last meal. Glucose of more than 200 mg/dL in a nonstressed, ambulatory subject supports the diagnosis of Diabetes Mellitus. Result Comment: [place] Glucose Reference Range is dependent on time and content of last meal. Glucose of more than 200 mg/dL in a nonstressed, ambulatory subject supports the diagnosis of Diabetes Mellitus. ADA recommended reference range Performed By: #### C MP, ETOH, CBC #### [address] Hematocrit [Volume Fraction] of Blood by Automated countOrdered By: Gem Mcintosh on 11-06-2023 Hematocrit (Bld) [Volume fraction] 42.2 % Normal 38.8-50.0 [facility] Comment on above: Performed By: #### C MP, ETOH, CBC #### [address] Hemoglobin [Mass/volume] in BloodOrdered By: Gem Mcintosh on 11-06-2023 Hemoglobin (Bld) [Mass/Vol] 14.2 g/dL Normal 13.0-17.0 [facility] Comment on above: Performed By: #### C MP, ETOH, CBC #### [address] Ketones Auto test strip (U) [Mass/Vol]Ordered By: Gem Mcintosh on 11-06-2023 Ketones (U) [Mass/Vol] Trace High Negative [facility] - UrinalysisOrder ed By: Gem Mcintosh on 11-06-2023 Hyaline casts LM Ql (Urine sed) 0-8 [LPF] 0-8 [facility] Leukocytes [#/area] in Urine sediment by Automated countOrdered By: Gem Mcintosh on 11-06-2023 WBC Auto (Urine sed) [#/Area] 1-2 [HPF] 0-4 [facility] Leukocytes [#/volume] correc nicko for nucleated erythrocytes in Blood by Automated counOrdered By: Gem Mcintosh on 11-06-2023 WBC corrected for nucl RBC Auto (Bld) [#/Vol] 13.5 10*3/uL High 4.1-10.5 [facility] Leukocytes [#/volume] in Blo od by Automated countOrdered By: Gem Mcintsoh on 11-06-2023 WBC (Bld) [#/Vol] 13.5 10*3/uL High 4.1-10.5 [facility] Comment on above: Performed By: #### C MP, ETOH, CBC #### [facility] [address] [place] [address] [place] Lymphocytes [#/volume] in Bl ood by Automated countOrdered By: Gem Mcintosh on 11-06-2023 Lymphocytes (Bld) [#/Vol] 2.9 10*3/uL Normal 1.00-4.8 [facility] Comment on above: Performed By: #### C MP, ETOH, CBC #### [facility] [address] [place] [address] [place] Lymphocytes/100 leukocytes i n Blood by Automated countOrdered By: Gem Mcintosh on 11-06-2023 Lymphocytes/100 WBC (Bld) 21.6 % Normal . [facility] Comment on above: Performed By: #### C MP, ETOH, CBC #### [facility] [address] [place] [address] [place] MCH [Entitic mass] by Automa nicko countOrdered By: Gem Mcintosh on 11-06-2023 MCH (RBC) [Entitic mass] 30.9 pg Normal 27.5-35.2 [facility] Comment on above: Performed By: #### C MP, ETOH, CBC #### [facility] [address] [place] [address] [place] MCHC Auto (RBC) [Mass/Vol]Or dered By: Gem Mcintosh on 11-06-2023 MCHC (RBC) [Mass/Vol] 33.8 g/dL 32.5-35.6 [facility] MCV [Entitic volume] by Auto mated countOrdered By: Gem Mcintosh on 11-06-2023 MCV (RBC) [Entitic vol] 91.6 fL Normal 83.5-101 F [facility] Comment on above: Performed By: #### C MP, ETOH, CBC #### [facility] [address] [place] [address] [place] Monocyte distribution width [Entitic volume] in Blood by AutomatedOrdered By: Gem Mcintosh on 11-06-2023 Monocyte distribution width Auto (Bld) [Entitic vol] 16.55 % 0.00-20.00 [facility] Neutrophils [#/volume] in Bl ood by Automated countOrdered By: Gem Mcintosh on 11-06-2023 Neutrophils (Bld) [#/Vol] 9.0 10*3/uL High 1.8-7.7 [facility] Comment on above: Performed By: #### C MP, ETOH, CBC #### [facility] [address] Nitrite Test strip Ql (U)Ord ered By: Gem Mcintosh on 11-06-2023 Nitrite Ql (U) Negative Negative [facility] No Panel InformationOrdered By: Gem Mcintosh on 11-06-2023 Estimated GFR (CKD-EPI) > 60.0 mL/Min [facility] Creatinine Clearance (Chem 99.02 [facility] Nucleated erythrocytes [Pres ence] in Blood by Automated countOrdered By: Gem Mcintosh on 11-06-2023 Nucleated RBC Auto Ql (Bld) 0.1 /100{WBC} 0-0.5 [facility] Opiates [Presence] in Urine by Screen methodOrdered By: Gem Mcintosh on 11-06-2023 Opiates Screen Ql (U) Negative Negative [facility] Phencyclidine Screen Ql (U)O rdered By: Gem Mcintosh on 11-06-2023 Phencyclidine Ql (U) Negative Negative [facility] Platelet mean volume [Entiti c volume] in Blood by Automated countOrdered By: Gem Mcintosh on 11-06-2023 Platelet mean volume (Bld) [Entitic vol] 8.3 fL Normal 6.6-10.1 [facility] Comment on above: Performed By: #### C MP, ETOH, CBC #### [address] Platelets [#/volume] in Bloo d by Automated countOrdered By: Gem Mcintosh on 11-06-2023 Platelets (Bld) [#/Vol] 350 10*3/uL Normal 150-450 [facility] Comment on above: Performed By: #### C MP, ETOH, CBC #### [address] Potassium [Moles/volume] in Serum or PlasmaOrdered By: Gem Mcintosh on 11-06-2023 Potassium [Moles/Vol] 4.2 mmol/L Normal 3.5-5.1 [facility] Comment on above: Performed By: #### C MP, ETOH, CBC #### [address] Protein [Mass/volume] in Ser um or PlasmaOrdered By: Gem Mcintosh on 11-06-2023 Protein [Mass/Vol] 6.7 g/dL Normal 6.4-8.9 [facility] Comment on above: Performed By: #### C MP, ETOH, CBC #### [address] Serum globulin measurement b y calculation (mass/volume)Ordered By: Gem Mcintosh on 11-06-2023 Globulin (S) [Mass/Vol] 2.4 g/dL Normal [facility] Comment on above: Performed By: #### C MP, ETOH, CBC #### [address] Serum or plasma albumin/glob ulin mass ratioOrdered By: Gem Mcintosh on 11-06-2023 Albumin/Globulin [Mass ratio] 1.8 {ratio} Normal [facility] Comment on above: Performed By: #### C MP, ETOH, CBC #### [address] Serum or plasma anion gap de terminationOrdered By: Gem Mcintosh on 11-06-2023 Anion gap [Moles/Vol] 9.8 mmol/L Normal 6.0-15.0 [facility] Comment on above: Performed By: #### C MP, ETOH, CBC #### [facility] [address] [place] [address] [place] Sodium [Moles/volume] in Ser um or PlasmaOrdered By: Gem Mcintosh on 11-06-2023 Sodium [Moles/Vol] 137 mmol/L Normal 136-145 [facility] Comment on above: Performed By: #### C MP, ETOH, CBC #### [facility] [address] [place] [address] [place] Specific gravity Auto test s trip (U) [Rel density]Ordered By: Gem Mcintosh on 11-06-2023 Specific gravity (U) [Rel density] 1.017 1.001-1.030 [facility] Urea nitrogen [Mass/volume] in Serum or PlasmaOrdered By: Gem Mcintosh on 11-06-2023 Urea nitrogen [Mass/Vol] 9 mg/dL Normal 7-25 [facility] Comment on above: Performed By: #### C MP, ETOH, CBC #### [facility] [address] [place] [address] Urine clarity by refractomet ry automatedOrdered By: Gem Mcintosh on 11-06-2023 Clarity Refractometry automated (U) Clear Clear [facility] Urine glucose measurement by automated test strip (mass/volume)Ordered By: Gem Mcintosh on 11-06-2023 Glucose Auto test strip (U) [Mass/Vol] Normal mg/dL Normal [facility] Urine hemoglobin detection b y automated test stripOrdered By: Gem Mcintosh on 11-06-2023 Hemoglobin Auto test strip Ql (U) Negative Negative [facility] Urine leukocyte esterase det ection by automated test stripOrdered By: Gem Mcintosh on 11-06-2023 Leukocyte esterase Auto test strip Ql (U) Negative Negative [facility] Urine pH measurement by auto mated test stripOrdered By: Gem Mcintosh on 11-06-2023 pH (U) 6.0 [pH] Normal 5.0-9.0 [facility] Comment on above: Order Comment: Name Collection Type:: Clean-Voided Midstream Performed By: #### U RUFINO OMALLEYONUAPLUS #### [facility] [address] [place] [address] Urine protein measurement by automated test strip (mass/volume)Ordered By: Gem Mcintosh on 11-06-2023 Protein (U) [Mass/Vol] 30 mg/dL High Negative [facility] Comment on above: Order Comment: Name Collection Type:: Clean-Voided Midstream Performed By: #### U SHAHRAM ADDONUAPLUS #### [facility] [address] [place] [address] Urobilinogen Auto test strip (U) [Mass/Vol]Ordered By: Gem Mcintosh on 11-06-2023 Urobilinogen (U) [Mass/Vol] Normal mg/dL Normal [facility] XR chest 2V*on 11-06-2023 XR chest 2V* [facility] [place] [address] [place] [address] XRay Report Signed Patient: Juan Carlos Noguera MR#: [id number] : 1970 Acct:[id number] Age/Sex: 53 / M ADM Date: 11/06/23 Loc: ER Room: Type: [facility] ER Attending Dr: Copies to: Gem Mcintosh [...] Ophelia Parra M.D.11/06/2023 1:04 PM Dictation Location: [place] [address] Transcribed By: [facility] 11/06/23 1304 Dictated By: Ophelia Parra MD 11/06/23 1304 Signed By: 11/06/23 1304 Normal [facility] Heart and Vascular Office/Cl incassidy Noteon 10-07-2023 Heart and Vascular Office/Clinic Note [...] exam. On Coreg, Entresto. 3. 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 [...] 10/07/2023 Family History Heart disease: Father. Normal [facility] Comment on above: Result Comment: Elec tronically Signed By: Antonia RUBIO, Tylor Potter\.br\Date and Time Signed: 10/07/23 14:59 EDT Coding Summary.on 09-16-2023 Coding Summary. KHJFFkbz82LDs1dIk+PG hl YWQ+ND9QBZRiJ71llJIewI 1lL2DRKWwVLvkxTPBLMRxN DfQfcrWxPK7rlCKfWDVo IC8+YI4xWOOtRsvtoRUif1 O8nAD6K54zea0qWUvzqOW2 FVEiDpWjezoyh1gabGv1HW cuNmluOyBt CFDpwN05PVZ8hN65Kn72iP SsiTUhz0brmKi6AdNqAWIg ZNU6tOauWKltk3AxDRUeJ0 7cqXZvx9Y5 MNHlcGfwkGMhUiAbqUC9eX 4uOMwuslypt7dfubrvYyy6 dn58pVRkh2T2tCU0W5Iebl V8ALWoiLOj PttwhUYWxO4bthdzx0thso joYwJfQGAxUKq7LTl5AIXf rXruSyLsVU59OQX3XBUset JxX7EfMGHi xTofRuU4o5M6Sc4GA5ZAKn irH6PHDTJVXHoriBW+PC90 ay53X8PzTyyxPzx7MQUjVE H8jIZ7bS2e ELGuKLdlr1L6vNU4D2Lwjg Prot8ot0jzGETbBCxfT21g hYVxr5B0TRLtrCF6GDHghO psQuLzgC09 Oyc+ZFLtlRset9QdNkzay0 yji5vprHm1SapvEBBojvUk sUyaYIP1l1DyMo9cTVGbkN E1gNA7cU0p VoJuRcQ5GAnqN126WbSuaD UuCymbH68iB1CvbNC+PHRy Mub2KDBnpTfdUQ9bM1RlKY RpbmctbGVm lWnpXV3pMNFundbfLOLugW 7nPEVnV1c1XfGzQrS1NFcc O1HqWOPqtjasJu94pJ3yTf NhPiX5FPlc V1CmtcO9GWHcoULlEOdqZZ L6R99xm8A4LRYvAVHfOUD4 pKY9hH9hpTmxpsomaJNvwS sgdmVydGlj RRsdUJdfZ980YBKfnKytKg NvZGluZyBEYXRlOiAgMDYv MjUvMjAyNDwvdGQ+PHRkIH Y5nAfwRVEg cEKqOVtiDt6kxCgflBrrOG 1eFNJblhqpZWZwdA8tUMAv iKGgjIopPE3zQPCuhytvh3 20LdQzZQN3 SUPdmBZxM7AjbZ7xFkOpMO NlEEAdQ0DhjGWgOHamV109 HMwlDrX9HUBxkdAqU4BdJC FsaWduOiB0 e6S2Yl9Pf5TbkdrwM5PnwS JfMiUcZckvPFj6H7NzJsef dHI+AT90NLGtPW21MLb4SH J0fZjuRBqg RRYpZ4DenT4dAaXzTNWoPQ RkOyc+PHRhYmxlIHdpZHRo LTbyYIOfQgSlgSgsIL8mSm 9yZGVyLWNv uOkrsZSvNeVam6obOQToVD xbXD8elTxkA9TgyYZ8VFFn c4o0Id37Q27eA5GyaVW+PG DakNR9qWR9 mA2cQvZvDvA0KPrcM552At WcrROjDtpnk7glg4myiSe7 ZiL8GAXcsgEqpNmfUYX5z5 TpTl69G37o IHdpZHRoPSIxNSUiIHZhbG ywmo3rdQ4tMi4+PGNvbCB3 jBF9rZ5qNkBpWcN0VObtF5 49InRvcCIv Ybwrq2mti4rxiZw9LxMwVP KuvlVdpXfbHON3l0HtUx89 S2LtkRbmg9BrGte7wp69mT Fbp7X2fSD2 J2ObFDGyvnltgUXouRitSL 4wTUObyhaeMRWlhX9aBISb O3q9BeChOqE6NNusB5Wdqa M9EXKqsENl VITrjPZImN8skdvpy3wdpr mxMnAmDKTnTSq1BXv2JPHj cNukNdWjSIX8CkG9SFN7aW PacC9wpFho rfjppL9iIlj+OEU1lYDvcG WHZU2xHyadeNJ+PHRkIHN0 jUwzITxyXLEymG0fUYGyA5 z7PcYvQjW1 YDciX5DkjuR9DBTaeQFlHZ PrmEMQoP7aaljhf8dpbdxw MtMvEOEgGKn9NSp4ZOLyfO duOiBsZWZ0 LjS6NYR7tBUjpX8cfXbebm zmxI3qNtb+QmlydGggRGF0 ABt8W2DgCzx7WRZlgPbcGL 0ncGFkZGlu Aj3pqPdedXscPQ3mVERido kym482LjYml1bfKPVkzZOl OWljFEA3Q32om7N9CNHeQA WdIDZ4xFI6 wG0agFwpazmijXRuyYgjos GcxIxtWWbmOLnuH519UCWh jHgkJyDyDEo5D1LaPwi5RK JmhBucOS3x qLDaAShxOb9ouZviaRtbRK 8zSUJndgzam075QxWah6uw FUCnaOUnXHvyCPJ3F86cq7 Y0KRSiVTHe LAV4pVC9jR0jqStpfduqgB VmdDsgdmVydGljYWwtYWxp D517HRSwhPghFoKhqVh9R2 ZcRvh8SBKv qUsuNS5ckVHtWNvqLw9okJ ziyWceRH7hINEsamsiu730 LmDgm4evEPHnoNTsPNglOC G8A79pw4K1 YQZmBVTqXMV5iBW3pE4ytC lnbjogbGVmdDsgdmVydGlj DZxoBOjhS610OTNcgGkgGo BhdGllbnQg GIptTVk8J3OmFjkjhYV+PC 48DPWgVX56iITrrNWqy0bk yWf3UkMaZTLmLQV3hYrjLO ifw3ZfPLZb L12gaORjp2Z5ZYKruXoqoD PtOfRqiXQ1tV9wWHkeeyas j7dowsrmTkkvu7qgub01dH 02C42aJHcz ZHRoPSIzMCUiIHZhbGlnbj 5mbQ5pSx3+HSTtnCE1jOD5 kZ8aEBXyAdY3HXbiL991Ls RvcCIvPjxj r9khh2zxmDw0ByL1BKCltd ZgxQqoQXM4p9SuIw23M73v IHdpZHRoPSIyMCUiIHZhbG hkon1mgL3e Ii8+RMWylPO9mRZ3bQ6pCq DaZtS2UUdfW238UmHhqQRm KejgN19dG1IzcXH+PHRyPj n7FKBzhFhh BS9rwMVuJSkyWr8iRPH1Ft SbUlIaJUmsJ7QqZIKjmjbf mhvheIY7URWpMLDgnW73Sa 9udDogMTBw nOOYwW6flkjxr4naoltjUp IaHKCjJDn3EIp0KQQaeKwu CwOvLPN1PgO8JXB9rKSpoG 1hbGlnbjog fW7wL0CyKSIiufqgCb56wC 4gXmOdEfD6AXacDtl+Sk9S LKRHHOJAPFdVEgVXPS37OH 58nPYrx7Z8 pVE0K8DoYBCekeaoiwfjuM S8CEPrVDWpoZ67vSIpTVcm Ro8eb0J0m084YWQfHVQvoV 23Ta2pyHxb TVFhpAVFjT9wteior1quku zaBoDcWXQwTHh8FUp2DYBm jNtzMrMyHPC7PcY9JYV7dS NokU7mvGdl nqmzaO3eUsn+MDcvMjcvMT d9QKdgsNG+ONCaFQF3xHkw VDnhZDOmkU6kLRIaX6a2Jn EhYxG7CJrd J5RaXRHzjctmKw17fC1dMw QmUaV5PGxbU2MkyvG1GKXn wZDsIXcrZBO5B45qv4T7DQ MwMDAwMDA7 pER6qL8syQqjlucttKUemI qzqeXxpAatMTilCJnsH354 TKMpnPepBgN9KTrzWVMwKI 67RV86nGPa s1S0aQL6Q9InYYAzojmabj ugtYN9PGBqICOiaU41xIRh WNpqAg8fv4T7a549GQAqDG WisU64Ai2v oBxxUWPlnMSIuR7foblos3 qzjfggRxVoOOWsJAl4AQg2 QPUhlQhqGjHwBUB1AxS0RP R2jTDmzH8g rKnaodjbnF6mFua+TWFsZT wvdGQ+TGWaSRP5jDzhUNgh MYWavO7aVUNvG5z4WjFsCs W9JCqxJ0Zd RFUfjsasOb65hX2kPwGtQc F8TCgyX4QbgxV5XULhfYAp WDnrXRE5P43zk5U9MMGnDJ OdFON4kVE0 gQ8epHyimupcgCOrtBzmpd FrdWegWNiyQReoE735PWGr hPhxAr92oLUinEoaymQ0Q1 RkPjwvdHI+ SC16AUVyPI99mIGwjJIbt6 btnGt3MoIqEBUsOAT4fYot ODyxf6TnZCZcO79baVNjv8 V8BPKkdUdd tFYjFyQdrIH0mA4lXVrzbj knv3tdkzsjYtfnp1lbli66 xD86H35tCAalQNWkWDJzFO UiIHZhbGln ht3vnB4vGr6+AWAdfIY8jQ C7iU5dIiGhVyY2QCbfC250 KhMmhCHtFrczj0dzg3pnwR e1HdCkYLGc zeDddDfuSUP4j8PbNy03R6 9sIHdpZHRoPSIyMCUiIHZh eFvacl4zbE3jTf3+PC9jb2 mqpk90eW06 dHI+MHIrMSA2sQdpGYjqSD VtoH5oWFzoVhG4LMTbInEn tM86qOLwJFisGr4tnRqdvC uuDX8lFIRt jkwap980WkEyk9vvVMAbuV HuBVfxDHR9H15hl5J6ZGGx QUGjQYT2uNI2mG3jzYdtud ogbGVmdDsg jgQqbVveODurFFedV294PR NfgWmpVcZshBMlH5esueYY DJ0mRkerxGW+XSFmGDD4oW xlPSdwYWRk rX6tCVSyJ2s1MaIsHjU1HL nqN8MuqyS6JETvsHNpXXJx jHDDaR4sahdmo4svgkaoLv AwMDAwMDt0 QYw0GERyeAgsSnLlLRM8Tq Y2KXL9sAZujW7ujNtbyhyl gM4cShn+RklOOjwvdGQ+PH TaBAM8tUxy GJtbQMLnaW4xTXIqJ0c8Ik TlOvP7VHebC0RsvgV4NVYw zKKiKVFzkPLAeU1wksvoz7 xvcjogIzAw TOJhSKu8TAc0HMDlgQlpZe WlFEZ3HoB6ABL2jMOpiC6c kVrvqqhhcQ3qFtd+TVJOOj wvdGQ+PHRk UQM6nIgtDTsrBNHitB6qTP DuM0u0DpFdNsB5YMbeP6Ra jsC2BARjfPQrQHIwoNHEeU 8zvbhyl5hg zmjwEyRaJIBbZEj8NDn6JI OedAfqQsEzEFE1HfV2YEI4 kAOavY0hpPefrdeimN8aCp c+LPU1UGO8 RV45ZI18Q6IxBccsuQRpxG U+PHRhYmxlIHdpZHRoPScx EKDiIsCriDiyWS3uWc7lRR VyLWNvbGxh uRGvBlVda7ttB (more content not included)... [facility] Physician Orderon 08-12-2023 Physician Order [id number]#1.0 0TIFF [facility] Consent for Treatmenton 07-23 Consent for Treatment [id number]#1.0 0TIFF Dara Marie [facility] [...] 6.25 mg twice daily. 3. 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 [...] Use:., 07/25/2023 Family History Heart disease: Father. [facility] Comment on above: Result Comment: Elec tronically Signed By: Antonia RUBIO, Tylor Potter\.br\Date and Time Signed: 08/11/23 15:24 EDT Cardiovascular Reporton 07-22 Cardiovascular Report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 Records Department AMB Office Visit Internal Med Name: JUAN CARLOS NOGUERA Sr. Pt Type: DEP AMB MR #: [id number] Room AND Bed: Date of : 1970 Date of Service: 12/03/21 Age: 51 Ordering Doctor: Sex: Male Family Doctor: Marie Mckenzie CNP Order #: Dictating Doctor: Marie Mckenzie CNP Admit Date: Referring Doctor: Other Doctor: Additional Copies: Marie Mckenzie TRANSITION ASSISTANT === Chief Complaint Chief Complaint: Patient here [...] Physician History Physician Specialist Physician: Oswaldo Bonilla [facility] Medical History Anxiety disorder History of [...] (2) P (more content not included)... Normal [facility] Ambulatory AMB Office Visit Internal Me don 11-28-2021 AMB Office Visit Internal Med [place] [address] Medical Records Department AMB Office Visit Internal Med Name: JUAN CARLOS NOGUERA Sr. Pt Type: DEP AMB MR #: [id number] Room AND Bed: Date of : 1970 Date of Service: 11/28/21 Age: 51 Ordering Doctor: Sex: Male Family Doctor: Marie Mckenzie CNP Order #: Dictating Doctor: Marie Mckenzie CNP Admit Date: Referring Doctor: Other Doctor: Additional Copies: Marie Mckenzie TRANSITION ASSISTANT === Chief Complaint Chief Complaint: Patient is [...] Physician History Physician Specialist Physician: Oswaldo Bonilla [facility] Medical History Anxiety disorder History of [...] BP 118/80 (more content not included)... Normal [facility] Ambulatory BASIC METABOLIC PANELon 09- Anion gap [Moles/Vol] 11 mmol/L Normal 10-20 [facility] Comment on above: Performed By: #### M PB #### [facility] [address] [address] [facility] Calcium [Mass/Vol] 8.8 mg/dL Normal 8.7-10.5 [facility] Comment on above: Performed By: #### M PB #### [facility] [address] [place] [address] [facility] Chloride [Moles/Vol] 105 mmol/L Normal 99-111 [facility] Comment on above: Performed By: #### M PB #### [facility] [address] CO2 [Moles/Vol] 29 mmol/L Normal 21.0-32.0 [facility] Comment on above: Performed By: #### M PB #### [facility] [address] Creatinine [Mass/Vol] 0.8 mg/dL Normal 0.6-1.3 [facility] Comment on above: Performed By: #### M PB #### [place] [address] [place] GFR/1.73 sq M.predicted among non-blacks MDRD (S/P/Bld) [Vol rate/Area] 107 mL/min/{1.73_m2} Normal >59 [facility] Comment on above: Performed By: #### M PB #### [facility] [address] Glucose [Mass/Vol] 92 mg/dL Normal 70-100 [facility] Comment on above: Performed By: #### M PB #### [facility] [place] [address] [facility] Potassium [Moles/Vol] 3.9 mmol/L Normal 3.5-5.0 [facility] Comment on above: Performed By: #### M PB #### [facility] [place] [address] [place] Sodium [Moles/Vol] 141 mmol/L Normal 137-147 [facility] Comment on above: Performed By: #### M PB #### [facility] [address] [address] [place] Urea nitrogen [Mass/Vol] 9 mg/dL Normal 7-22 [facility] Comment on above: Performed By: #### M PB #### [facility] [address] [address] [place] Urea nitrogen/Creatinine [Mass ratio] 11.3 mg/mg Normal 6-25 [facility] Comment on above: Performed By: #### M PB #### [facility] [address] CBC W Auto Differential pane l (Bld)on 11-23-2021 BASOPHIL ABSOLUTE COUNT 0.12 x10*3/uL High 0.0-0.1 [facility] Comment on above: Performed By: #### 5 7021-8, 68968-6, 41220-2 #### [facility] [address] Basophils/100 WBC (Bld) 0.8 % Normal 0.0-1.1 [facility] Comment on above: Performed By: #### 5 7021-8, 01633-8, 20677-0 #### [facility] [address] EOS ABSOLUTE COUNT 0.50 x10*3/uL Normal 0.0-0.5 [facility] Comment on above: Performed By: #### 5 7021-8, 42808-0, 75970-5 #### [facility] [address] Eosinophils/100 WBC (Bld) 3.2 % Normal 0.0-6.0 [facility] Comment on above: Performed By: #### 5 7021-8, 83226-0, 03679-5 #### [facility] [address] Hematocrit (Bld) [Volume fraction] 37.8 % Normal 35.0-49.0 [facility] Comment on above: Performed By: #### 5 7021-8, 20220-9, 36277-4 #### [facility] [address] Hemoglobin (Bld) [Mass/Vol] 12.9 g/dL Normal 11.5-17.0 [facility] Comment on above: Performed By: #### 5 7021-8, 93141-4, 04612-7 #### [facility] [address] IMMATURE GRAN ABSOLUTE COUNT 0.04 x10*3/uL Normal 0.0-0.5 [facility] Comment on above: Performed By: #### 5 7021-8, 00270-6, 88824-1 #### [facility] [address] Immature granulocytes/100 WBC (Bld) 0.3 % Normal 0.0-2.99 [facility] Comment on above: Performed By: #### 5 7021-8, 72179-6, 40797-3 #### [facility] [address] LYMPHOCYTE ABSOLUTE COUNT 3.69 x10*3/uL High 0.5-3.2 [facility] Comment on above: Performed By: #### 5 7021-8, 97547-1, 37399-1 #### [facility] [address] Lymphocytes/100 WBC (Bld) 23.9 % Normal 13.0-39.0 [facility] Comment on above: Performed By: #### 5 7021-8, 09498-5, 95302-7 #### [facility] [address] MCH (RBC) [Entitic mass] 31.6 pg Normal 26.0-33.0 [facility] Comment on above: Performed By: #### 5 7021-8, 68031-7, 22949-7 #### [facility] [address] MCV (RBC) [Entitic vol] 92.6 fL Normal 81.0-98.0 [facility] Comment on above: Performed By: #### 5 7021-8, 84289-9, 80145-7 #### [facility] [address] MEAN CORPUSCULAR HGB CONC 34.1 g/dl Normal 31.0-35.0 [facility] Comment on above: Performed By: #### 5 7021-8, 08599-9, 23417-8 #### [facility] [address] MONOCYTE ABSOLUTE COUNT 2.05 x10*3/uL High 0.0-1.0 [facility] Comment on above: Performed By: #### 5 7021-8, 31753-7, 76362-6 #### [facility] [address] [address] [facility] Monocytes/100 WBC (Bld) 13.3 % High 4.0-13.0 [facility] Comment on above: Performed By: #### 5 7021-8, 29453-5, 95581-9 #### [facility] [place] [address] [facility] NEUTROPHIL COUNT ABSOLUTE 9.01 x10*3/uL High 1.5-6.2 [facility] Comment on above: Performed By: #### 5 7021-8, 77055-9, 09185-2 #### [facility] [address] Neutrophils/100 WBC (Bld) 58.5 % Normal 47.0-76.0 [facility] Comment on above: Performed By: #### 5 7021-8, 87363-4, 64316-3 #### [facility] [address] [address] [facility] NUCLEATED RBC ABSOLUTE COUNT 0.00 x10*3/uL Normal [facility] Comment on above: Performed By: #### 5 7021-8, 87876-2, 80556-4 #### [facility] [place] [address] [facility] Nucleated RBC/100 WBC (Bld) [Ratio] 0.0 % Normal [facility] Comment on above: Performed By: #### 5 7021-8, 67230-4, 54290-8 #### [facility] [address] [address] [facility] PLATELET COUNT 427 x10*3/uL High 150-400 [facility] Comment on above: Performed By: #### 5 7021-8, 81968-8, 11405-7 #### [facility] [address] [address] [facility] Platelet mean volume (Bld) [Entitic vol] 9.0 fL Normal 9.0-12.1 [facility] Comment on above: Performed By: #### 5 7021-8, 41962-2, 55099-5 #### [facility] [address] [address] [facility] RED BLOOD COUNT 4.08 x10*6/uL Normal 3.8-6.0 [facility] Comment on above: Performed By: #### 5 7021-8, 94241-7, 54534-1 #### [facility] [address] [address] [facility] RED CELL DISTRIBUTION WIDTH 46.7 fL Normal 36.7-49.4 [facility] Comment on above: Performed By: #### 5 7021-8, 69804-4, 60438-7 #### [facility] [address] WHITE BLOOD COUNT 15.41 X10*3/uL High 3.8-11.0 [facility] Comment on above: Performed By: #### 5 7021-8, 85615-3, 58434-5 #### [facility] [address] [address] [facility] Differential panel (Body fld )on 11-23-2021 BANDS 0 % Normal 0-1 [facility] Comment on above: Performed By: #### 5 7021-8, 23591-9, 75412-1 #### [facility] [address] [address] [place] Basophils/100 WBC (Bld) 0 % Normal 0-1 [facility] Comment on above: Performed By: #### 5 7021-8, 19731-8, 97349-1 #### [facility] [address] [address] [place] Eosinophils/100 WBC (Bld) 3 % Normal 0-6 [facility] Comment on above: Performed By: #### 5 7021-8, 99028-6, 29020-0 #### [facility] [address] [address] [place] Lymphocytes/100 WBC (Bld) 24 % Low 38-46 [facility] Comment on above: Performed By: #### 5 7021-8, 78988-3, 64973-4 #### [facility] [address] [address] [place] Monocytes/100 WBC (Bld) 7 % Normal 2-10 [facility] Comment on above: Performed By: #### 5 7021-8, 26215-1, 98170-2 #### [facility] [address] [address] [facility] MYELOCYTE 1 % Normal [facility] Comment on above: Performed By: #### 5 7021-8, 90281-4, 14656-7 #### [facility] [address] [address] [facility] Neutrophils/100 WBC (Bld) 62 % Normal 47-76 [facility] Comment on above: Performed By: #### 5 7021-8, 28042-1, 22780-0 #### [facility] [address] [address] [place] Variant lymphocytes/100 WBC (Bld) 3 % Normal [facility] Comment on above: Performed By: #### 5 7021-8, 86848-3, 43189-8 #### [facility] [address] [address] [facility] Pathologist review of result son 11-23-2021 Pathologist review Armando (Unsp spec) [Interp] * Normal [facility] Comment on above: Result Comment: Niurka e with reported results. Reviewed by [facility] Performed By: #### 5 7021-8, 93123-6, 35746-9 #### [facility] [place] [address] [facility] Physician Documentationon Physician Documentation [place] [address] Medical Records Department ED Physician Documentation Name: JUAN CARLOS NOGUERA Sr. Pt Type: DEP ER MR #: [id number] Room AND Bed: Date of : 1970 [...] Blood Pres (more content not included)... Normal [facility] US Venous Duplex Uni Leg RTo n 11-23-2021 US Venous Duplex Uni Leg RT [place] [address] Diagnostic Imaging Ultrasound Report Name: JUAN CARLOS NOGUERA Sr. Pt Type: REG ER MR #: [id number] Room & Bed: Date of : 1970 Date of Service: 11/23/21 Age: 51 Ordering Doctor: Florinda Guillory CNP Sex: Male Family Doctor: Marie Mckenzie CNP Order #: [id number] Dictating Doctor: Abisai Mchugh MD Admit Date: [...] are not the intended recipient, please contact [facility] at [phone] and destroy all copies of the original. Normal [facility] AMB Office Visit Internal Me don 10-08-2021 AMB Office Visit Internal Med [place] [address] Medical Records Department AMB Office Visit Internal Med Name: JUAN CARLOS NOGUERA Pt Type: DEP AMB MR #: [id number] Room AND Bed: Date of : 1970 [...] and colleagues, with an educational damian from [employer]. COVID-19 Patient Screening COVID-19 Screening Contact with COVID positive or high risk person(s): No COVID-19 Symptoms: No Physician History Physician Specialist Physician: Oswaldo Bonilla [facility] Medical History Anxiety disorder History of [...] concentrating, Denie (more content not included)... Normal [facility] Ambulatory AMB Office Visit Internal Me don 09-10-2021 AMB Office Visit Internal Med [place] [address] Medical Records Department AMB Office Visit Internal Med Name: JUAN CARLOS NOGUERA Pt Type: DEP AMB MR #: [id number] Room AND Bed: Date of : 1970 [...] associated with ADD. He also wonders about [place] [facility] program. Intake Intake Intake Have [...] and colleagues, with an educational damian from [employer]. COVID-19 Patient Screening COVID-19 Screening Contact with [...] Denies headache(s) (more content not included)... Normal [facility] Ambulatory AMB Office Visit Internal Me don 06-11-2021 AMB Office Visit Internal Med [place] [address] Medical Records Department AMB Office Visit Internal Med Name: JUAN CARLOS NOGUERA Pt Type: DEP AMB MR #: [id number] Room AND Bed: Date of : 1970 [...] and colleagues, with an educational damian from [employer]. COVID-19 Patient Screening COVID-19 Screening Contact with COVID positive or high risk person(s): No COVID-19 Symptoms: No Physician History Physician Specialist Physician: Oswaldo Bonilla [facility] Medical History Anxiety disorder History of [...] carbonated be (more content not included)... Normal [facility] Ambulatory AMB Office Visit Internal Me don 03-12-2021 AMB Office Visit Internal Med [place] [address] Medical Records Department AMB Office Visit Internal Med Name: JUAN CARLOS NOGUERA Pt Type: DEP AMB MR #: [id number] Room AND Bed: Date of : 1970 [...] Denies eas (more content not included)... Normal [facility] Ambulatory AMB Office Visit Internal Me don 02-12-2021 AMB Office Visit Internal Med [place] [id number] Medical Records Department AMB Office Visit Internal Med Name: JUAN CARLOS NOGUERA Pt Type: DEP AMB MR #: [id number] Room AND Bed: Date of : 1970 Date of Service: 02/12/21 Age: 50 Ordering Doctor: Sex: Male Family Doctor: Diana Peoples MD Order #: Dictating Doctor: Marie Mckenzie TRANSITION ASSISTANT Admit Date: Referring Doctor: Other Doctor: Additional [...] Medical History (Updated 02/12/21 @ 12:13 by aMrie Mckenzie, C.N.P.) Anxiety disorder History of traumatic [...] TM's normal (more content not included)... Normal [facility] Ambulatory BASIC METABOLIC PANELon 04-24 Anion gap [Moles/Vol] 10 mmol/L Normal 5-15 [facility] Comment on above: Performed By: #### L AB119 #### [place] [address] BUN/CREAT RATIO 12 (CALC) Normal 7.0-25.0 [facility] Comment on above: Performed By: #### L AB119 #### [place] [address] Calcium [Mass/Vol] 8.0 mg/dL Low 8.5-10.5 [facility] Comment on above: Performed By: #### L AB119 #### [place] [address] Chloride [Moles/Vol] 105 mmol/L Normal 96-110 [facility] Comment on above: Performed By: #### L AB119 #### [place] [address] CO2 [Moles/Vol] 21 mmol/L Normal 19-32 [facility] Comment on above: Performed By: #### L AB119 #### [place] [address] Creatinine [Mass/Vol] 0.9 mg/dL Normal 0.5-1.4 [facility] Comment on above: Performed By: #### L AB119 #### [place] [address] ESTIMATED GFR 99 ML/MIN/1.73M2 Normal [facility] Comment on above: Result Comment: IF THE PATIENT IS , PLEASE MULTIPLY THIS BY 1.159. THIS RESULT HAS BEEN CALCULATED ASSUMING THE PATIENT IS NON- Performed By: #### L AB119 #### [place] [address] Glucose [Mass/Vol] 126 mg/dL High 70-99 [facility] Comment on above: Performed By: #### L AB119 #### [place] [address] Potassium [Moles/Vol] 4.5 mmol/L Normal 3.4-5.3 [facility] Comment on above: Performed By: #### L AB119 #### [place] [address] Sodium [Moles/Vol] 136 mmol/L Normal 135-148 [facility] Comment on above: Performed By: #### L AB119 #### [place] [address] Urea nitrogen [Mass/Vol] 11 mg/dL Normal 3-29 [facility] Comment on above: Performed By: #### L AB119 #### [place] [address] COMPLETE BLOOD COUNTon 05-09 Erythrocyte distribution width (RBC) [Ratio] 14.3 % Normal 9.0-15.0 [facility] Comment on above: Performed By: #### L AB119 #### [place] [address] Hematocrit (Bld) [Volume fraction] 34.8 % Low 41.0-50.0 [facility] Comment on above: Performed By: #### L AB119 #### [place] [address] Hemoglobin (Bld) [Mass/Vol] 11.9 g/dL Low 13.8-17.2 [facility] Comment on above: Performed By: #### L [id number] #### [place] [address] MCH (RBC) [Entitic mass] 30.4 pg Normal 27.0-33.0 [facility] Comment on above: Performed By: #### L [id number] #### [place] [address] MCHC (RBC) [Mass/Vol] 34.0 g/dL Normal 32.0-36.0 [facility] Comment on above: Performed By: #### L [id number] #### [place] [address] MCV (RBC) [Entitic vol] 89.4 fL Normal 80.0-100.0 [facility] Comment on above: Performed By: #### L [id number] #### [place] [address] Platelets (Bld) [#/Vol] 168 10*3/uL Normal 130-400 [facility] Comment on above: Performed By: #### L [id number] #### [place] [address] RBC COUNT 3.90 M/MM3 Low 4.40-5.80 [facility] Comment on above: Performed By: #### L [id number] #### [place] [address] WBC (Bld) [#/Vol] 19.5 10*3/uL High 3.8-10.8 [facility] Comment on above: Performed By: #### L AB119 #### [place] [address] DRUG SCREEN, URINEon 021 AMPHETAMINE, URINE Not detected Normal [facility] Comment on above: Performed By: #### L [id number] #### [place] [address] BARBITURATES, URINE Not detected Normal [facility] Comment on above: Performed By: #### L [id number] #### [place] [address] BENZODIAZEPINE, URINE Positive Abnormal [facility] Comment on above: Performed By: #### L AB119 #### [place] [address] COCAINE, URINE Not detected Normal [facility] Comment on above: Performed By: #### L AB119 #### [place] [address] COMMENT, URINE DRUG SCREEN Normal [facility] Comment on above: Result Comment: [...] and/or metabolites are present. Test performed at [facility] [place], [place] Performed By: #### L AB119 #### [place] [address] OPIATES, URINE Not detected Normal [facility] Comment on above: Performed By: #### L AB119 #### [place] [address] THC Not detected Normal [facility] Comment on above: Performed By: #### L [id number] #### [place] [address] SARS COV 2 RNA, QL REAL TIME RT PCRon 05-09-2020 SARS-CoV-2 (COVID-19) RNA ARAVIND+probe Ql (Unsp spec) Not detected Normal NDET [facility] Comment on above: Result Comment: Refe rence Range = NOT DETECTED Performed By: #### L [id number] #### [place] [address] SARS-CoV-2 (COVID-19) RNA ARAVIND+probe Ql (Unsp spec) (NOTE) Normal [facility] Comment on above: Result Comment: [...] 2019. Performed By: #### L [id number] #### [place] [address] URINALYSISon 05-09-2020 Appearance (U) CLEAR Normal [facility] Comment on above: Performed By: #### L AB119 #### [place] [address] BACTERIA, URINE NONE SEEN Normal NS [facility] Comment on above: Performed By: #### L AB119 #### [place] [address] BILIRUBIN, URINE Negative Normal NEG [facility] Comment on above: Performed By: #### L AB119 #### [place] [address] BLOOD, URINE Negative Normal NEG [facility] Comment on above: Performed By: #### L AB119 #### [place] [address] Color (U) Normal [facility] Comment on above: Result Comment: YESARAH OW Reference Range: Yellow and Colorless Performed By: #### L AB119 #### [place] [address] Glucose Ql (U) Negative Normal NEG [facility] Comment on above: Performed By: #### L AB119 #### [place] [address] HYALINE CAST Normal U05 [facility] Comment on above: Result Comment: 0-5 REFERENCE RANGE: 0-5 HYALINE CASTS NONE SEEN FOR NON HYALINE CASTS Performed By: #### L AB119 #### [place] [address] KETONE, URINE Negative Normal NEG [facility] Comment on above: Performed By: #### L AB119 #### [place] [address] LEUKOCYTES, URINE Negative Normal NEG [facility] Comment on above: Performed By: #### L AB119 #### [place] [address] MUCUS, URINE PRESENT Normal [facility] Comment on above: Performed By: #### L AB119 #### [place] [address] NITRITES, URINE Negative Normal NEG [facility] Comment on above: Performed By: #### L AB119 #### [place] [address] pH (U) 6.0 [pH] Normal 4.5-8.0 [facility] Comment on above: Performed By: #### L AB119 #### [place] [address] Protein (U) [Mass/Vol] 10 mg/dL Abnormal NEG [facility] Comment on above: Performed By: #### L AB119 #### [place] [address] RBC, URINE 6-10 Abnormal U02 [facility] Comment on above: Performed By: #### L AB119 #### [place] [address] RENAL EPITHELIAL CELLS, URINE 0-5 Normal U05 [facility] Comment on above: Performed By: #### L AB119 #### [place] [address] SPECIFIC GRAVITY, URINE 1.040 High 1.005-1.030 [facility] Comment on above: Result Comment: Urin e specific gravity may be affected by X-ray dye, high glucose, high protein, and some chemotherapeutic drugs. Clinical correlation is recommended. Performed By: #### L AB119 #### [place] [address] SQUAMOUS EPITHEAL CELLS, URINE 0-5 Normal 5 [facility] Comment on above: Performed By: #### L AB119 #### [place] [address] UROBILINOGEN, URINE <2 Normal <2 [facility] Comment on above: Performed By: #### L AB119 #### [place] [address] WBC, URINE 0-5 Normal 5 [facility] Comment on above: Performed By: #### L AB119 #### [place] [address] ACTIVATED PARTIAL THROMBOPLA STIN TIMEon 05-08-2020 aPTT Coag (Bld) [Time] 26.0 s Normal 24.5-35.2 [facility] Comment on above: Performed By: #### L [id number] #### [place] [address] BASIC METABOLIC PANELon 04-24 Anion gap [Moles/Vol] 11 mmol/L Normal 5-15 [facility] Comment on above: Performed By: #### L [id number] #### [place] [address] BUN/CREAT RATIO 10 (CALC) Normal 7.0-25.0 [facility] Comment on above: Performed By: #### L AB064 #### [place] [id number] Calcium [Mass/Vol] 7.4 mg/dL Low 8.5-10.5 [facility] Comment on above: Performed By: #### L AB064 #### [place] [id number] Chloride [Moles/Vol] 103 mmol/L Normal 96-110 [facility] Comment on above: Performed By: #### L AB064 #### [place] [id number] CO2 [Moles/Vol] 20 mmol/L Normal 19-32 [facility] Comment on above: Performed By: #### L AB064 #### [place] [id number] Creatinine [Mass/Vol] 1.0 mg/dL Normal 0.5-1.4 [facility] Comment on above: Performed By: #### L AB064 #### [place] [id number] ESTIMATED GFR 87 ML/MIN/1.73M2 Normal [facility] Comment on above: Result Comment: IF THE PATIENT IS , PLEASE MULTIPLY THIS BY 1.159. THIS RESULT HAS BEEN CALCULATED ASSUMING THE PATIENT IS NON- Performed By: #### L AB064 #### [place] [address] Glucose [Mass/Vol] 206 mg/dL High 70-99 [facility] Comment on above: Performed By: #### L AB064 #### [place] [address] Potassium [Moles/Vol] 4.8 mmol/L Normal 3.4-5.3 [facility] Comment on above: Result Comment: HEMO LYZED POTASSIUM RESULTS ARE ELEVATED BY SPECIMEN HEMOLYSIS Performed By: #### L AB064 #### [place] [address] Sodium [Moles/Vol] 134 mmol/L Low 135-148 [facility] Comment on above: Performed By: #### L AB064 #### [place] [address] Urea nitrogen [Mass/Vol] 10 mg/dL Normal 3-29 [facility] Comment on above: Performed By: #### L [id number] #### [place] [id number] COMPLETE BLOOD COUNT 05-08 Erythrocyte distribution width (RBC) [Ratio] 14.0 % Normal 9.0-15.0 [facility] Comment on above: Performed By: #### L [id number] #### [place] [address] Hematocrit (Bld) [Volume fraction] 40.4 % Low 41.0-50.0 [facility] Comment on above: Performed By: #### L AB119 #### [place] [address] Hemoglobin (Bld) [Mass/Vol] 13.7 g/dL Low 13.8-17.2 [facility] Comment on above: Performed By: #### L [id number] #### [place] [address] MCH (RBC) [Entitic mass] 30.4 pg Normal 27.0-33.0 [facility] Comment on above: Performed By: #### L [id number] #### [place] [address] MCHC (RBC) [Mass/Vol] 33.9 g/dL Normal 32.0-36.0 [facility] Comment on above: Performed By: #### L [id number] #### [place] [address] MCV (RBC) [Entitic vol] 89.9 fL Normal 80.0-100.0 [facility] Comment on above: Performed By: #### L AB119 #### [place] [address] Platelets (Bld) [#/Vol] 164 10*3/uL Normal 130-400 [facility] Comment on above: Performed By: #### L AB119 #### [place] [address] RBC COUNT 4.49 M/MM3 Normal 4.40-5.80 [facility] Comment on above: Performed By: #### L AB119 #### [place] [address] WBC (Bld) [#/Vol] 16.8 10*3/uL High 3.8-10.8 [facility] Comment on above: Performed By: #### L AB119 #### [place] [address] COMPLETE BLOOD COUNT WITH DI FFERENTIALon 05-08-2020 ABSOLUTE BASOPHIL 0.1 K/MM3 Normal 0.0-0.3 [facility] Comment on above: Performed By: #### L AB119 #### [place] [address] ABSOLUTE SEGMENTED NEUTROPHIL 13.5 K/MM3 High 1.5-7.8 [facility] Comment on above: Performed By: #### L AB119 #### [place] [address] Basophils/100 WBC (Bld) 0.3 % Normal 0.0-2.0 [facility] Comment on above: Performed By: #### L [id number] #### [place] [address] Eosinophils (Bld) [#/Vol] 0.0 10*3/uL Normal 0.0-0.6 [facility] Comment on above: Performed By: #### L AB119 #### [place] [address] Eosinophils/100 WBC (Bld) 0.1 % Normal 0.0-7.0 [facility] Comment on above: Performed By: #### L AB119 #### [place] [address] Erythrocyte distribution width (RBC) [Ratio] 13.8 % Normal 9.0-15.0 [facility] Comment on above: Performed By: #### L AB119 #### [place] [address] Hematocrit (Bld) [Volume fraction] 39.7 % Low 41.0-50.0 [facility] Comment on above: Performed By: #### L AB119 #### [place] [address] Hemoglobin (Bld) [Mass/Vol] 13.2 g/dL Low 13.8-17.2 [facility] Comment on above: Performed By: #### L AB119 #### [place] [address] Lymphocytes (Bld) [#/Vol] 1.0 10*3/uL Normal 0.9-4.1 [facility] Comment on above: Performed By: #### L AB119 #### [place] [address] Lymphocytes/100 WBC (Bld) 6.4 % Low 18.0-47.0 [facility] Comment on above: Performed By: #### L [id number] #### [place] [address] MCH (RBC) [Entitic mass] 30.4 pg Normal 27.0-33.0 [facility] Comment on above: Performed By: #### L AB119 #### [place] [address] MCHC (RBC) [Mass/Vol] 33.2 g/dL Normal 32.0-36.0 [facility] Comment on above: Performed By: #### L [id number] #### [place] [address] MCV (RBC) [Entitic vol] 91.6 fL Normal 80.0-100.0 [facility] Comment on above: Performed By: #### L AB119 #### [place] [address] Monocytes (Bld) [#/Vol] 1.3 10*3/uL High 0.2-1.1 [facility] Comment on above: Performed By: #### L AB119 #### [place] [address] Monocytes/100 WBC (Bld) 8.1 % Normal 0-14.0 [facility] Comment on above: Performed By: #### L AB119 #### [place] [address] Platelets (Bld) [#/Vol] 187 10*3/uL Normal 130-400 [facility] Comment on above: Performed By: #### L [id number] #### [place] [address] RBC COUNT 4.34 M/MM3 Low 4.40-5.80 [facility] Comment on above: Performed By: #### L AB119 #### [place] [address] Segmented neutrophils/100 WBC (Bld) 85.1 % High 40.0-75.0 [facility] Comment on above: Performed By: #### L AB119 #### [place] [address] WBC (Bld) [#/Vol] 15.9 10*3/uL High 3.8-10.8 [facility] Comment on above: Performed By: #### L [id number] #### [place] [address] ETHANOLon 05-08-2020 Ethanol [Mass/Vol] Not detected Normal NONDT [facility] Comment on above: Performed By: #### L [id number] #### [place] [address] HEMOGLOBIN AND HEMATOCRITon 05-08-2020 Hematocrit (Bld) [Volume fraction] 37.0 % Low 41.0-50.0 [facility] Comment on above: Performed By: #### L AB236 #### [place] [address] Hemoglobin (Bld) [Mass/Vol] 12.5 g/dL Low 13.8-17.2 [facility] Comment on above: Performed By: #### L AB236 #### [place] [address] LACTIC ACIDon 05-08-2020 Lactate [Moles/Vol] 4.0 mmol/L High 0.5-2.2 [facility] Comment on above: Result Comment: Per the request of [facility] and approval by the [facility] [employer] and Medical Executive Committee, this critical value was not called to the caregiver. (NOTE) If ruling out sepsis: Result >2.0 meets criteria for severe sepsis, recommend repeat testing to rule out sepsis. Result >=4.0 meets criteria for septic shock. Performed By: #### L [id number] #### [place] [address] PREPARE RED BLOOD CELLSon PREPARE RED BLOOD CELLS UNIT PRODUCT COD E: B0403R68 PREPARE RED BLOOD CELLS: RED BLOOD CELLS, CPD>AS1, LEUKOCYTES REDUCED UNIT ID: [id number] UNIT ABO: O UNIT RH: POSITIVE UNIT DISPENSE STATUS: Emergency Issue UNIT EXPIRATION DATE: UNIT BLOOD TYPE: 5100 BLOOD CODING SYS: ISBT 128 [facility] Comment on above: Performed By: #### L [id number] #### [place] [address] PREPARE RED BLOOD CELLS UNIT PRODUCT COD E: [id number] PREPARE RED BLOOD CELLS: RED BLOOD CELLS, CPD>AS1, LEUKOCYTES REDUCED UNIT ID: [id number] UNIT ABO: O UNIT RH: POSITIVE UNIT DISPENSE STATUS: Emergency Issue UNIT EXPIRATION DATE: UNIT BLOOD TYPE: 5100 BLOOD CODING SYS: ISBT 128 [facility] Comment on above: Performed By: #### L [id number] #### [place] [address] PREPARE RED BLOOD CELLS UNIT PRODUCT COD E: [id number] PREPARE RED BLOOD CELLS: RED BLOOD CELLS, CPD>AS1, LEUKOCYTES REDUCED UNIT ID: [id number] UNIT ABO: O UNIT RH: POSITIVE UNIT INTERPRETATION: Compatible UNIT DISPENSE STATUS: Presumed Transfused UNIT EXPIRATION DATE: UNIT BLOOD TYPE: 5100 BLOOD CODING SYS: ISBT 128 UNIT PRODUCT CODE: [id number] PREPARE RED BLOOD CELLS: RED BLOOD CELLS, CPD>AS1, LEUKOCYTES REDUCED UNIT ID: [id number] UNIT ABO: O UNIT RH: POSITIVE UNIT INTERPRETATION: Compatible UNIT DISPENSE STATUS: Presumed Transfused UNIT EXPIRATION DATE: UNIT BLOOD TYPE: 5100 BLOOD CODING SYS: ISBT 128 [facility] Comment on above: Performed By: #### L [id number] #### [place] [address] PROTHROMBIN TIMEon INR Coag (PPP) [Relative time] 1.2 {INR} High 0.9-1.1 [facility] Comment on above: Result Comment: MODERATE-INTENSITY WARFARIN THERAPY: 2.0-3.0 HIGHER-INTENSITY WARFARIN THERAPY: 3.0-4.0 Performed By: #### L [id number] #### [place] [address] PT Coag (PPP) [Time] 15.3 s High 11.7-13.9 [facility] Comment on above: Performed By: #### L AB119 #### [place] [address] SURGICAL PATHOLOGYon 021 SURGICAL PATHOLOGY SURGICAL PATHOLOGY REPORT Path #: [id number] SS Patient : JUAN CARLOS NOGUERA Dudley #: [id number] Date: 05/09/2020 Pre Op Diagnosis Splenic laceration [...] is an area of focal hemorrhage present. [employer] sections to include area of described defect and an area of focal hemorrhage are submitted in cassettes A through C . Note that the section with capsule still attached is submitted in cassette A . Technical work associated with this pathology investigation was performed by: [employer], [place], [place] [address]. [facility]/05/09/2020 Kat Aguilera Billing Fee Codes [phone] x 1 The CPT codes provided are based on AMA guidelines and are for informational purposes only. CPT coding is the sole responsibility of the billing republican. Please direct any questions regarding coding to the payer being billed. Normal [facility] Comment on above: Performed By: #### L [id number] #### [place] [address] TYPE AND SCREENon 05-08-2020 TYPE AND SCREEN ABO GROUP: O RH TYPE: Positive INDIRECT ANTIGLOB: Negative SPECIMEN EXPIRATION DATE/TIME: [id number] [facility] Comment on above: Performed By: #### L [id number] #### [place] [address] VENOUS BLOOD GASon BASE EXCESS,VENOUS -7.3 MMOL/L [facility] Comment on above: Result Comment: BASE EXCESS NORMALS: -2 TO +3 Performed By: #### L [id number] #### [place] [address] HCO3 (Bld) [Moles/Vol] 21.4 mmol/L Low 24.0-28.0 [facility] Comment on above: Performed By: #### L [id number] #### [place] [address] O2 ADMINISTRATED UNKNOWN Normal [facility] Comment on above: Performed By: #### L AB416 #### [place] [address] Oxygen saturation in Blood 71.3 % High 40.0-70.0 [facility] Comment on above: Performed By: #### L AB416 #### [place] [address] PCO2, VENOUS 55.7 MM HG High 41.0-51.0 [facility] Comment on above: Performed By: #### L AB416 #### [place] [address] PH, VENOUS 7.19 Low 7.32-7.42 [facility] Comment on above: Performed By: #### L AB416 #### [place] [address] PO2, VENOUS 43.6 MM HG High 25.0-40.0 [facility] Comment on above: Performed By: #### L AB416 #### [place] [address] SURGICALon 04-30-2017 SURGICAL [facility] KPTenisha TrevaJUAN CARLOS [id number]. Page [address] [place] [address] PROC: 04/30/2017[facility] [facility] RECV: 04/30/20177[address] RPTD: 05/08/2017[place], [place] [address] LOC: OI ACCT: SEX: M [id number] AGE: 46 Y : 1970 PATHOLOGY REPORT [...] the underlyingbone. The resection line is unremarkable. [employer] sections aresubmitted after decalcification. ALP/DKR:jcsMicroscopic Examination:Microscopi c examination was performed.[id number] KAT MONTOYA D.O., F.C.A.P.[place]/ [facility] Printed on: 05/08/2017750 [place], [place] [address]Dosiyipn print date: 05/08/2017 Normal [facility] TYPE AND SCREEN CAPTUREon ABO CAPTURE O [facility] Comment on above: Performed By: #### C T+S ####[facility] [address] [place] [address] INDIRECT NEGAR CAPTURE Negative Normal [facility] Comment on above: Performed By: #### C T+S ####[facility] [address] [place] [address] RH CAPTURE (2 D CLONES) Positive Normal [facility] Comment on above: Performed By: #### C T+S ####[facility] [address] [place] [address] Progress Noteon 04-14-2017 HIM 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 Normal [facility] Vital Signs Date Time Vital Sign Value Performing Clinician Faci lity 01-30-2024 14:38-0500 Diastolic blood pressure 78 mm[Hg] Tylor Kirnus [facility] 01-30-2024 14:38-0500 Heart rate 53 /min Tylor Kirnus [facility] 01-30-2024 14:38-0500 Respiratory rate 16 /min Tylor Kirnus [facility] 01-30-2024 14:38-0500 SaO2% (BldA) [Mass fraction] 94 % Tylor Kirnus [facility] 01-30-2024 14:38-0500 Systolic blood pressure 128 mm[Hg] Tylor Kirnus [facility] 01-06-2024 15:14-0400 Body mass index (BMI) [Ratio] 29.26 kg/m2 Jennifer Avery [employer] Work Phone: [facility] 01-06-2024 15:14-0400 Body weight 95.17 kg Jennifer Avery [employer] Work Phone: [facility] 01-06-2024 15:14-0400 Diastolic blood pressure 74 mm[Hg] Jennifer Avery [employer] Work Phone: [facility] 01-06-2024 15:14-0400 Systolic blood pressure 128 mm[Hg] Jennifer Avery [employer] Work Phone: [facility] 12-30-2023 14:38-0400 Blood Pressure Location Tylor Kirnus [facility] 12-30-2023 14:38-0400 Diastolic blood pressure 84 mm[Hg] Tylor Kirnus [facility] 12-30-2023 14:38-0400 Heart rate 91 /min Tylor Kirnus [facility] 12-30-2023 14:38-0400 Respiratory rate 16 /min Tylor Marnus [facility] 12-30-2023 14:38-0400 SaO2% (BldA) [Mass fraction] 99 % Tylor Marnus [facility] 12-30-2023 14:38-0400 Systolic blood pressure 136 mm[Hg] Tylor Marnus [facility] 12-26-2023 07:38-0400 Body height 188 cm Cheyenne Horn MD Work Phone: [facility] [place] 12-26-2023 07:38-0400 Body mass index (BMI) [Ratio] 26.83 kg/m2 Cheyenne Horn MD Work Phone: [facility] [place] 12-26-2023 07:38-0400 Body weight 94.8 kg Cheyenne Horn MD Work Phone: [facility] [place] 12-26-2023 07:38-0400 Diastolic blood pressure 62 mm[Hg] Cheyenne Horn MD Work Phone: [facility] [place] 12-26-2023 07:38-0400 Heart rate 89 /min Cheyenne Horn MD Work Phone: [facility] [place] 12-26-2023 07:38-0400 Systolic blood pressure 108 mm[Hg] Cheyenne Horn MD Work Phone: [facility] [place] 12-24-2023 13:17-0400 Body height 187.96 cm MD Moreno Barrera Work Phone: [facility] 12-24-2023 13:17-0400 Body mass index (BMI) [Ratio] 26.3 kg/m2 MD Moreno Barrera Work Phone: [facility] 12-24-2023 13:17-0400 Body temperature 98.2 [degF] MD Moreno Barrera Work Phone: [facility] 12-24-2023 13:17-0400 Body weight 92.98 kg MD Moreno Barrera Work Phone: [facility] 12-24-2023 13:17-0400 Diastolic blood pressure 66 mm[Hg] MD Moreno Barrera Work Phone: [facility] 12-24-2023 13:17-0400 Heart rate 51 /min MD Moreno Barrera Work Phone: [facility] 12-24-2023 13:17-0400 Respiratory rate 18 /min MD Moreno Barrera Work Phone: [facility] 12-24-2023 13:17-0400 SaO2% (BldA) [Mass fraction] 98 % MD Moreno Barrera Work Phone: [facility] 12-24-2023 13:17-0400 Systolic blood pressure 107 mm[Hg] MD Moreno Barrera Work Phone: [facility] 12-04-2023 09:05-0400 Body height 180.3 cm Jennifer Bargeroll [employer] Work Phone: [facility] 12-04-2023 09:05-0400 Body mass index (BMI) [Ratio] 29.32 kg/m2 Jennifer Avery [employer] Work Phone: [facility] 12-04-2023 09:05-0400 Body weight 95.35 kg Jennifer Avery [employer] Work Phone: [facility] 12-04-2023 09:05-0400 Diastolic blood pressure 66 mm[Hg] Jennifer Bargeroll [employer] Work Phone: [facility] 12-04-2023 09:05-0400 Systolic blood pressure 116 mm[Hg] Jennifer Avery [employer] Work Phone: [facility] 11-28-2023 11:43-0400 Diastolic blood pressure 68 mm[Hg] Tylor Kirnus [facility] 11-28-2023 11:43-0400 Heart rate 102 /min Tylor Kirnus [facility] 11-28-2023 11:43-0400 Respiratory rate 16 /min Tylor Kirnus [facility] 11-28-2023 11:43-0400 SaO2% (BldA) [Mass fraction] 98 % Tylor Kirnus [facility] 11-28-2023 11:43-0400 Systolic blood pressure 118 mm[Hg] Tylor Kirnus [facility] 11-12-2023 07:30-0400 Body temperature 97.8 [degF] MD Moreno Barrera Work Phone: [facility] 11-12-2023 07:30-0400 Diastolic blood pressure 76 mm[Hg] MD Moreno Barrera Work Phone: [facility] 11-12-2023 07:30-0400 Heart rate 65 /min MD Moreno Barrera Work Phone: [facility] 11-12-2023 07:30-0400 Respiratory rate 16 /min MD Moreno Barrera Work Phone: [facility] 11-12-2023 07:30-0400 SaO2% (BldA) [Mass fraction] 99 % MD Moreno Barrera Work Phone: [facility] 11-12-2023 07:30-0400 Systolic blood pressure 108 mm[Hg] MD Moreno Barrera Work Phone: [facility] 11-11-2023 13:51-0400 Body height 187.96 cm MD Moreno Barrera Work Phone: [facility] 11-10-2023 09:00-0400 Body weight 90.9 kg MD Moreno Barrera Work Phone: [facility] 11-06-2023 14:48-0400 Body temperature 98.2 [degF] MD Moreno Barrera Work Phone: [facility] 11-06-2023 14:48-0400 Diastolic blood pressure 88 mm[Hg] MD Moreno Barrera Work Phone: [facility] 11-06-2023 14:48-0400 Heart rate 83 /min MD Moreno Barrera Work Phone: [facility] 11-06-2023 14:48-0400 Respiratory rate 18 /min MD Moreno Barrera Work Phone: [facility] 11-06-2023 14:48-0400 SaO2% (BldA) [Mass fraction] 98 % MD Moreno Barrera Work Phone: [facility] 11-06-2023 14:48-0400 Systolic blood pressure 116 mm[Hg] MD Moreno Barrera Work Phone: [facility] 11-06-2023 11:23-0400 Body height 187.96 cm MD Moreno Barrera Work Phone: [facility] 11-06-2023 11:23-0400 Body weight 94.3 kg MD Moreno Barrera Work Phone: [facility] 10-07-2023 14:40-0400 Diastolic blood pressure 80 mm[Hg] Tylor Kirnus [facility] 10-07-2023 14:40-0400 Heart rate 99 /min Tylor Kirnus [facility] 10-07-2023 14:40-0400 Respiratory rate 16 /min Tylor Kirnus [facility] 10-07-2023 14:40-0400 SaO2% (BldA) [Mass fraction] 96 % Tylor Kirnus [facility] 10-07-2023 14:40-0400 Systolic blood pressure 128 mm[Hg] Tylor Kirnus [facility] 08-11-2023 14:53-0400 Diastolic blood pressure 82 mm[Hg] Tylor Kirnus [facility] 08-11-2023 14:53-0400 Heart rate 101 /min Tylor Kirnus [facility] 08-11-2023 14:53-0400 SaO2% (BldA) [Mass fraction] 96 % Tylor Kirnus [facility] 08-11-2023 14:53-0400 Systolic blood pressure 136 mm[Hg] Tylor Kirnus [facility] 07-31-2023 08:08-0400 Diastolic blood pressure 71 mm[Hg] Tylor Kirnus [facility] 07-31-2023 08:08-0400 Systolic blood pressure 100 mm[Hg] Tylor Kirnus [facility] 07-31-2023 08:05-0400 Heart rate 133 /min Tylor Kirnus [facility] 07-31-2023 08:05-0400 Respiratory rate 15 /min Tylor Kirnus [facility] 07-31-2023 08:05-0400 SaO2% (BldA) [Mass fraction] 99 % Tylor Kirnus [facility] 07-31-2023 08:04-0400 Diastolic blood pressure 65 mm[Hg] Tylor Kirnus [facility] 07-31-2023 08:04-0400 Systolic blood pressure 105 mm[Hg] Tylor Kirnus [facility] 07-31-2023 08:00-0400 Diastolic blood pressure 95 mm[Hg] Tylor Kirnus [facility] 07-31-2023 08:00-0400 Heart rate 101 /min Tylor Kirnus [facility] 07-31-2023 08:00-0400 Respiratory rate 14 /min Tylor Kirnus [facility] 07-31-2023 08:00-0400 Systolic blood pressure 118 mm[Hg] Tylor Kirnus [facility] 07-31-2023 07:55-0400 Heart rate 99 /min Tylor Kirnus [facility] 07-31-2023 07:55-0400 Respiratory rate 15 /min Tylor Kirnus [facility] 07-31-2023 07:55-0400 SaO2% (BldA) [Mass fraction] 99 % Tylor Kirnus [facility] 07-31-2023 06:46-0400 Heart rate 99 /min Tylor Kirnus [facility] 07-25-2023 10:54-0400 Diastolic blood pressure 82 mm[Hg] Tylor Kirnus [facility] 07-25-2023 10:54-0400 Heart rate 115 /min Tylor Kirnus [facility] 07-25-2023 10:54-0400 SaO2% (BldA) [Mass fraction] 100 % Tylor Kirnus [facility] 07-25-2023 10:54-0400 Systolic blood pressure 122 mm[Hg] Tylor Knight [facility] 05-30-2023 14:55-0500 Diastolic blood pressure 90 mm[Hg] Zeb Christofferson [facility] 05-30-2023 14:55-0500 Heart rate 52 /min Zeb Christofferson [facility] 05-30-2023 14:55-0500 SaO2% (BldA) [Mass fraction] 91 % Zeb Christofferson [facility] 05-30-2023 14:55-0500 Systolic blood pressure 124 mm[Hg] Zeb Christofferson [facility] 05-02-2023 13:06-0500 Diastolic blood pressure 82 mm[Hg] Zeb Christofferson [facility] 05-02-2023 13:06-0500 Heart rate 54 /min Zeb Christofferson [facility] 05-02-2023 13:06-0500 SaO2% (BldA) [Mass fraction] 96 % Zeb Christofferson [facility] 05-02-2023 13:06-0500 Systolic blood pressure 138 mm[Hg] Zeb Christofferson [facility] 04-17-2023 07:36-0500 Body height 187.96 cm MD Moreno Barrera Work Phone: [facility] 04-17-2023 07:36-0500 Body weight 99.79 kg MD Moreno Barrera Work Phone: [facility] 03-20-2023 13:47-0500 Diastolic blood pressure 80 mm[Hg] Zeb Rojoofferson [facility] 03-20-2023 13:47-0500 Heart rate 116 /min Zeb Christofferson [facility] 03-20-2023 13:47-0500 SaO2% (BldA) [Mass fraction] 96 % Zeb Delarosa [facility] 03-20-2023 13:47-0500 Systolic blood pressure 132 mm[Hg] Zeb Delarosa [facility] 12-05-2022 11:30-0400 Body height 187.96 cm Moreno Barrera Other [facility] [employer] Other 12-05-2022 11:30-0400 Body mass index (BMI) [Ratio] 25.75 kg/m2 Moreno Barrera Other [employer] Other 12-05-2022 11:30-0400 Body weight 90.99 kg Moreno Barrera Other [employer] Other 12-05-2022 11:30-0400 Diastolic blood pressure 88 mm[Hg] Moreno Barrera Other [employer] Other 12-05-2022 11:30-0400 Respiratory rate 20 /min Moreno Barrera Other [employer] Other 12-05-2022 11:30-0400 Systolic blood pressure 134 mm[Hg] Moreno Barrera Other [employer] Other 09-30-2022 13:50-0400 Body height 187.96 cm Kat Boss Other [employer] Other 09-30-2022 13:50-0400 Body mass index (BMI) [Ratio] 25.83 kg/m2 Kat Boss Other [employer] Other 09-30-2022 13:50-0400 Body temperature 97.7 [degF] Kat Boss Other [employer] Other 09-30-2022 13:50-0400 Body weight 91.26 kg Kat Boss Other [employer] Other 09-30-2022 13:50-0400 Diastolic blood pressure 76 mm[Hg] Kat Gera Other [employer] Other 09-30-2022 13:50-0400 Respiratory rate 18 /min Kat Boss Other [employer] Other 09-30-2022 13:50-0400 SaO2% (BldA) [Mass fraction] 98 % Kat Boss Other [employer] Other 09-30-2022 13:50-0400 Systolic blood pressure 132 mm[Hg] Kat Boss Other [employer] Other 06-11-2021 08:25-0400 Body height 187.96 cm M.D. [facility] Work Phone: [facility] Work Phone: 06-11-2021 08:25-0400 Body mass index (BMI) [Ratio] 24.6 kg/m2 M.D. [employer] Work Phone: [facility] Work Phone: 06-11-2021 08:25-0400 Body temperature 96.1 [degF] M.D. [employer] Work Phone: [facility] Work Phone: 06-11-2021 08:25-0400 Body weight 87.09 kg M.D. [employer] Work Phone: [facility] Work Phone: 06-11-2021 08:25-0400 Diastolic blood pressure 62 mm[Hg] M.D. Dianatenisha Peoples Work Phone: [facility] Work Phone: 06-11-2021 08:25-0400 Heart rate 74 /min M.D. Diana Shelton Work Phone: [facility] Work Phone: 06-11-2021 08:25-0400 SaO2% (BldA) [Mass fraction] 99 % M.D. [facility] Work Phone: [facility] Work Phone: 06-11-2021 08:25-0400 Systolic blood pressure 122 mm[Hg] M.D. Diana Shelton Work Phone: [facility] Work Phone: 03-12-2021 07:57-0500 Body height 187.96 cm M.D. Diana Shelton Work Phone: [facility] Work Phone: 03-12-2021 07:57-0500 Body mass index (BMI) [Ratio] 25.2 kg/m2 M.D. Diana Peoples Work Phone: [facility] Work Phone: 03-12-2021 07:57-0500 Body temperature 96.3 [degF] M.D. Diana Shelton Work Phone: [facility] Work Phone: 03-12-2021 07:57-0500 Body weight 89.36 kg M.D. Diana Peoples Work Phone: [facility] Work Phone: 03-12-2021 07:57-0500 Diastolic blood pressure 72 mm[Hg] M.D. Diana Peoples Work Phone: [facility] Work Phone: 03-12-2021 07:57-0500 Heart rate 132 /min M.D. Diana Peoples Work Phone: [facility] Work Phone: 03-12-2021 07:57-0500 SaO2% (BldA) [Mass fraction] 97 % M.D. Diana Peoples Work Phone: [facility] Work Phone: 03-12-2021 07:57-0500 Systolic blood pressure 138 mm[Hg] M.D. Diana Peoples Work Phone: [facility] Work Phone: 02-12-2021 07:45-0500 Body height 187.96 cm M.D. Diana Peoples Work Phone: [facility] Work Phone: 02-12-2021 07:45-0500 Body mass index (BMI) [Ratio] 25.2 kg/m2 M.D. Diana Peoples Work Phone: [facility] Work Phone: 02-12-2021 07:45-0500 Body temperature 96.3 [degF] M.D. Diana Peoples Work Phone: [facility] Work Phone: 02-12-2021 07:45-0500 Body weight 89.36 kg M.D. Diana Peoples Work Phone: [facility] Work Phone: 02-12-2021 07:45-0500 Diastolic blood pressure 72 mm[Hg] M.D. Diana Peoples Work Phone: [facility] Work Phone: 02-12-2021 07:45-0500 Heart rate 76 /min M.D. Diana Peoples Work Phone: [facility] Work Phone: 02-12-2021 07:45-0500 SaO2% (BldA) [Mass fraction] 100 % M.D. Diana Peoples Work Phone: [facility] Work Phone: 02-12-2021 07:45-0500 Systolic blood pressure 126 mm[Hg] M.D. Diana [facility] Work Phone: [facility] Work Phone: Encounters Encounter Date Encounter Type Care Provider Facility Start: 02-16-2024 ambulatory Moreno Barrera Facility :[facility] Start: 01-30-2024 End: 01-30-2024 ambulatory Tylor Knight Facility:[facility] Start: 01-30-2024 End: 01-30-2024 Patient encounter procedure Tylor Knight [facility] Start: 01-16-2024 End: 01-16-2024 Clinisync Result Encounter Jennifer Avery [employer] Work Phone: [employer] External Department Unsolicited Start: 01-16-2024 End: 01-16-2024 Clinisync Result Encounter Jennifer Avery [employer] Work Phone: [employer] External Department Unsolicited Start: 01-06-2024 End: 01-06-2024 Office outpatient visit 25 minutes Jennifer Avery [employer] Work Phone: [facility] [address] Comment on above: Lumbar radiculopathy (Primary Dx); Weakness of both lower extremities; Cognitive impairment; Anxiety; Muscle stiffness; Blurry vision, bilateral Start: 01-06-2024 End: 01-06-2024 ambulatory JENNIFER AVERY Not Available Start: 01-06-2024 End: 01-06-2024 Bamboo flowsheet Jennifer Avery [employer] Work Phone: [facility] [address] Start: 01-06-2024 End: 01-06-2024 Bamboo flowsheet Jennifer Avery [employer] Work Phone: [facility] [place] [address] Start: 12-31-[address] [facility] Start: 12-30-2023 End: 12-30-2023 ambulatory XXXX NONE Facility:[facility] Start: 12-30-2023 End: 12-30-2023 Patient encounter procedure Tylor Knight [facility] Start: 12-26-2023 End: 12-26-2023 Office consultation new/estab patient 80 min Cheyenne Horn MD Work Phone: [facility] Comment on above: Atrial fibrillation, unspecified type (Multi) (Primary Dx); Other fatigue; Shortness of breath on exertion; Encounter to establish care with new doctor; Encounter for medication review and counseling; Encounter to discuss treatment options; BMI 26.0-26.9,adult; Current smoker Start: 12-26-2023 End: 12-26-2023 ambulatory [facility] Start: 12-24-2023 End: 12-24-2023 ambulatory MD Moreno Barrera Work Phone: [facility] Work Phone: Start: 12-24-2023 End: 12-24-2023 Patient encounter procedure MD Moreno Barrera Work Phone: [facility] Work Phone: Start: 12-19-2023 Registered Recurring MD Moreno Barrera Work Phone: [facility] Start: 12-04-2023 End: 12-04-2023 Bamboo flowsheet Jennifer Avery [employer] Work Phone: [facility] [place] [address] Start: 12-04-2023 End: 12-04-2023 Bamboo flowsheet Jennifer Avery [employer] Work Phone: [facility] [place] [address] Start: 12-04-2023 End: 12-04-2023 Office outpatient visit 25 minutes Jennifer Avery [employer] Work Phone: [facility] [address] Comment on above: Lumbar radiculopathy (Primary Dx); Cognitive impairment; Anxiety; Muscle stiffness; Blurry vision, bilateral; Cervical radiculopathy; Carpal tunnel syndrome, bilateral Start: 12-04-2023 End: 12-04-2023 ambulatory JENNIFER AVERY Not Available Start: 11-28-2023 End: 11-28-2023 ambulatory XXXX NONE Facility:[facility] Start: 11-28-2023 End: 11-28-2023 Patient encounter procedure Tylor Knight [facility] Start: 11-07-2023 Non-patient / Non-visit MD Marcelina Barrera Work Phone[facility] Work Phone: Start: 11-06-2023 End: 11-12-2023 Evaluation and management of inpatient MD Moreno Barrera Work Phone: [facility] Work Phone: Start: 11-06-2023 Registered Recurring MD Moreno Barrera Work Phone: [facility] Start: 10-27-2023 Registered Recurring MD Moreno Barrera Work Phone: [facility] Start: 10-13-2023 End: 10-13-2023 ambulatory JENNIFER AVERY Not Available Start: 10-07-2023 End: 10-28-2023 Pre-admission assessment Tylor Knight [facility] Start: 10-07-2023 End: 10-07-2023 ambulatory XXXX NONE Facility:[facility] Start: 10-07-2023 End: 10-07-2023 Patient encounter procedure Tylor Knight [facility] Start: 10-01-2023 End: 10-01-2023 ambulatory Chanel Montalvo Facility:[facility] Start: 10-01-2023 End: 10-01-2023 Patient encounter procedure Chanel Montalvo [facility] Start: 08-11-2023 End: 08-11-2023 ambulatory XXXX NONE Facility:[facility] Start: 08-11-2023 End: 08-11-2023 Patient encounter procedure Tylor Manuelnus [facility] Start: 08-11-2023 End: 08-11-2023 ambulatory JENNIFER AVERY Not Available Start: 07-31-2023 End: 07-31-2023 Admission to same day surgery [facility] Tariq Hirschus [facility] Start: 07-31-2023 End: 07-31-2023 ambulatory Tylor D Kirnus Facility:[facility] Start: 07-25-2023 End: 07-25-2023 ambulatory XXXX NONE Facility:[facility] Start: 07-25-2023 End: 07-25-2023 Patient encounter procedure Tylor Manuelnus [facility] Start: 07-15-2023 End: 07-15-2023 ambulatory LESVIA BUTLER Not Available Start: 07-14-2023 End: 07-14-2023 ambulatory ANGELA GARZA Not Available Start: 05-30-2023 End: 05-30-2023 ambulatory XXXX NONE Facility:[facility] Start: 05-30-2023 End: 05-30-2023 Patient encounter procedure Zeb Delarosa [facility] Start: 05-08-2023 End: 05-08-2023 Admission to same day surgery center Zeb Delarosa [facility] Start: 05-08-2023 End: 05-08-2023 ambulatory Zeb Delarosa Facility:[facility] Start: 05-02-2023 End: 05-02-2023 ambulatory XXXX NONE Facility:[facility] Start: 05-02-2023 End: 05-02-2023 Patient encounter procedure Zeb Delarosa [facility] Start: 04-17-2023 End: 04-17-2023 Patient encounter procedure MD Moreno Barrera Work Phone: [facility] Work Phone: Start: 04-17-2023 End: 04-17-2023 ambulatory MD Moreno Barrera Work Phone: [facility] Work Phone: Start: 04-15-2023 End: 04-15-2023 ambulatory Zeb Delarosa Facility:[facility] Start: 04-15-2023 End: 04-15-2023 Patient encounter procedure Zeb Delarosa [facility] Start: 04-07-2023 End: 04-07-2023 ambulatory LESVIA Steven POCOS Not Available Start: 04-01-2023 ambulatory XXXX NONE Facility: [facility] Start: 03-20-2023 End: 03-20-2023 ambulatory JENNIFER AVERY Facility:[facility] Start: 03-20-2023 End: 03-20-2023 Patient encounter procedure Zeb Delarosa [facility] Start: 12-27-2022 End: 12-27-2022 ambulatory Moreno Barrera Other [employer] Other Start: 12-27-2022 Telephone encounter Moreno Barrera [facility] Start: 12-10-2022 End: 12-10-2022 ambulatory Moreno Barrera Other [employer]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 document.
[2024-03-03 14:42] LABS: Anion Gap 7.2; BUN Creatinine Ratio 6.4; Calcium 8.5 mg/dL (8.5-10.1); Carbon Dioxide 33.6 mmol/L (21.0-32.0); Chloride 106 mmol/L (98-107); Estimated GFR (African America >60 (>=60 mL/min/1.73m^2); Estimated GFR (Non-African Ame 53 (>=60 mL/min/1.73m^2); Glucose 85 mg/dL (74-106); Potassium 3.8 mmol/L (3.5-5.1); Sodium 143 mmol/L (136-145)
[2024-03-03 14:47] LABS: INR 1.06; Prothrombin Time 11.2 sec (9.0-11.6)
[2024-03-03 14:56] LABS: Band Neutrophils Absolute 0.3 10^3/uL (0.0-0.3); Basophils Abs Manual 0.13 10^3/uL (0.00-0.10); Eosinophils Absolute Manual 0.27 10^3/uL (0.00-0.70); Lymphocytes Absolute Manual 3.24 10^3/uL (1.20-3.80); Segmented Neut Absolute Manual 9.18 10^3/uL (1.4-6.5)
== END 2024-03-03 14:20 | disposition home or self-care (01) ==
LOC: LAB 14:20
PROVIDERS: PCP Family Medicine
DX: I48.91 Unspecified atrial fibrillation (principal); R53.83 Other fatigue; R06.02 Shortness of breath
CPT/HCPCS: 36415; 80048; 85007; 85027; 85610

== ENCOUNTER 2024-03-20 16:20 | Emergency (ER) | payer OTHER, SELFPAY ==
[2024-03-20 16:25] VITALS: BP 141/86; PULSE 91; TEMP 37.1; O2SAT 99; BMI 30.7
--- OUTSIDE RECORDS SUMMARY | 2024-03-20 16:29 | XMS_ITS | CCD ---
Author Organization [facility] Care Team Providers Care Brass Plater Name Role Phone YONY TAN Unavailable Unavailable No Family, Physician Unavailable Unavailable FRANCI OJSE Tenisha Unavailable Unavailable No Family, Physician Unavailable Unavailable Ele Peoples Family Provider Mckenzie C.N.P. Marie K. Primary Care Provider [phone] Mckenzie, C.N.P. Marie K. Attending Provider Ele Peoples Family Provider Mckenzie, C.N.P. Marie K. Primary Care Provider Mckenzie, C.N.P. Marie K. Attending Provider [phone] Diana Peoples Consulting Unavailable Mckenzie, Marie K. [...] Barrera Unavailable MORENO BARRERA Primary Care Physician [phone] MELANY Avery Jennifer Attending Provider Unavailable MD Moreno Barrera Primary Care Provider MD Moreno Barrera Primary Care Provider MD Ronaldo Castro Attending Provider MD Gem Mcintosh Emergency Provider [phone] MD Ronaldo Castro Admit Provider MD Moreno Barrera Primary Care Provider MD Ronaldo Castro Attending Provider MD Moreno Barrera Primary Care Provider MD Lino Floyd Attending Provider MD Ronaldo Castro Attending Provider Moreno Barrera MD Primary Care Provider [phone] Cheyenne Horn MD Unavailable CHEYENNE HORN Attending Unavailable MORENO BARRERA Primary Care Unavailable Moreno Barrera MD Primary Care Provider [phone] NONE, XXXX Referring Unavailable Tylor Knight Attending Unavailable NONE, XXXX Referring Unavailable Zeb Delarosa Attending Unavaila ble Kirnus, Tylor D Attending Unavailable NONE, XXXX Referring Unavailable Kirnus, Tylor D Admitting Unavailable Kirnus, Tylor D Attending Unavailable Kirnus, Tylor D Referring Unavailable Zeb Delarosa Attending Unavaila Zeb Rivera Referring Unavaila ble Zeb Delarosa Admitting Unavaila ble Zeb Delarosa Consulting Unavaila ble Zeb Delarosa Consulting Unavaila ble Zeb Delarosa Attending Unavaila ble Zeb Delarosa Referring Unavaila ble Zeb Delarosa Admitting Unavaila ble Montalvo, Basem G. Admitting Unavailable Montalvo, Basem G. Attending Unavailable Kirnus, Tylor D Referring Unavailable [...] NONE, XXXX Referring Unavailable Zeb Delarosa Attending Unavailtenisha Avery NP, Jennifer Unavailable LESVIA BUTLER Attending Unavailable LESVIA BUTLER Referring Unavailable ANGELA GARZA Attending Unavailable ANGELA GARZA Referring Unavailable JENNIFER AVERY Attending Unavailable JENNIFER AVERY Attending Unavailable REY, JENNIFER Attending Unavailable REY, JENNIFER Attending Unavailable REY, JENNIFER Attending Unavailable Amalia Burleson Consulting Unavailable Matthew Ronaldo Admitting Unavailab Lino Terry Attending Unavailable Moreno Barrera Primary Care Unavailable Chapito Watts Consulting Unavailable Lashon Stoner Consulting Unavailable Jose Hairston Consulting Unavail able Avril Fox Consulting Unavailable Clark Sim Consulting Unavailab Suki Sanchez Consulting Unavailable Neris Vences Consulting Unavailable Charlie Benítez Consulting Unavailab Estephanie Limon Consulting Unavailable Marie Lara Consulting Unavailable Moreno Barrera Primary Care Unavailable Jennifer Avery Admitting Unavailable Bob Averyah Attending Unavailable Ronaldo Castro Admitting Unavailab Ronaldo Kolb Attending Unavailab Moreno Johns Primary Care Unavailable CHEYENNE HORN Admitting Unavailable CHEYENNE HORN Attending Unavailable MORENO BARRERA Primary Care Unavailable CHEYENNE HORN Referring Unavailable MORENO BARRERA Primary Care Unavailable CAROLINE DIXON Attending Unavailable CHEYENNE HORN Referring Unavailable MORENO BARRERA Primary Care Unavailable RACHAEL RIVERA Referring Unavailable MORENO BARRERA Primary Care Unavailable RACHAEL RIVERA Referring Unavailable MORENO BARRERA Primary Care Unavailable Allergies Allergy Classification Reported Allergen(s) Allergy Type Date of Onset Reaction(s) Facility (9 sources) DULoxetine Drug Allergy 4 [facility] Work Phone: (1 source) No Known Medication Allergies; Translations: [No Known Medication Allergies] Propensity to adverse reactions (disorder) [facility] Repository (2 sources) gabapentin Drug Allergy [address] [place] [address] (1 source) Unable to Assess Drug allergy (disorder) 4 [facility] Repository Medications Current Medications Medication Drug Class(es) Dates Sig (Normalized) Sig (Original) Tylenol (20 sources) Start: 03-20-2023 Tylenol Refill s(s) 0 Start Date: 03/20/23 Status: Ordered take 1 tablet by sabrina th every six hours as needed acetaminophen (Tylenol) 325 mg tablet Ta ke 1 tablet (325 mg) by mouth every 6 hours if needed for mild pain (1 - 3). Active take 1-2 capsules by mouth every six hours as needed acetaminophen (Tylenol) 325 MG capsule T jalen 1-2 capsules by mouth every 6 (six) hours if needed Active [id number] 200 actuat albuterol 0.09 mg/actuat metered dose [...] Active amiodarone hydrochloride 200 mg oral tablet (8 sources) Antiarrhythmic Start: 12-30-2023 take 1 tablet by mouth once daily amiodarone 200 mg Tab 200 mg = 1 tab(s), Oral, Daily, # 30 tab(s), Refills(s) 5, Pharmacy: [facility]/pharmacy #[id number], 178, cm, 12/30/23 14:47:00 [...] days, # 25 tab(s), Refills(s) 0, Pharmacy: [facility]/pharmacy #[id number], 178, cm, 12/30/23 14:47:00 EDT, Height/Length Dosing, 95.2, kg, 12/30/23 14:47:00 EDT, Weight Dosing Start Date: 12/30/23 Status: Ordered amphetamine aspartate 5 mg / amphetamine sulfate 5 mg / dextroamphetamine saccharate 5 mg / dextroamphetamine sulfate 5 mg oral tablet (10 sources) Central Nervous System Stimulant take 1 [...] Start: 08-15-2023 take 1 tablet by sabrina twice daily Eliquis 5 mg oral tablet 5 mg = 1 tab(s), Oral, BID, # 180 tab(s), Refills(s) 1, Pharmacy: [facility]/pharmacy #[id number], 178, cm, 08/11/23 14:57:00 EDT, Height/Length Dosing, 99, kg, 08/11/23 14:57:00 EDT, Weight Dosing Start Date: 08/15/23 Status: Ordered Start: 05-05-2023 take 1 tablet by sabrina twice daily Eliquis 5 mg oral tablet 5 mg = 1 tab(s), Oral, BID, # 60 tab(s), Refills(s) 3, Pharmacy: [facility]/pharmacy #[id number], 178, cm, 05/02/23 13:12:00 EST, Height/Length Dosing, 102, kg, 05/02/23 13:12:00 EST, Weight Dosing Start Date: 05/05/23 Status: Ordered ARIPiprazole 10 mg oral tablet (12 sources) Atypical Antipsychotic Start: 11-13-2023 take 1 tablet by mouth at bedtime ARIPiprazole (Abilify) 10 MG tablet Take 10 mg by mouth at bedtime 11/13/2023 Active take 1 tablet by sabrina once daily at bedtime ARIPiprazole (Abilify) 10 mg disintegrat ing tablet Dissolve 1 tablet (10 mg) in the mouth once daily at bedtime. Active aspirin 81 mg chewable tablet (13 sources) Platelet Aggregation Inhibitor, Nonsteroidal Anti-inflammatory Drug Start: 03-20-2023 aspirin 81 MG chewable tablet Chew 81 mg 03/20/2023 Active atorvastatin 40 mg oral tablet (20 sources) HMG-CoA Reductase Inhibitor Start: 07-28-2023 take 1 tablet by mouth in the morning atorvastatin (Lipitor) 40 mg tablet Take 1 tablet (40 mg) by mouth early in the morning.. 10/19/2023 Active busPIRone hydrochloride 5 mg oral tablet (19 sources) Start: 11-12-2023 take 1 tablet by mouth twice daily busPIRone (Buspar) 5 mg tablet Take 1 tablet (5 mg) by mouth 2 times a day. 11/12/2023 Active Start: 11-12-2023 take 1 tablet [...] BID, # 60 tab(s), Refills(s) 6, Pharmacy: [facility]/pharmacy #[id number], 178, cm, 08/11/23 14:57:00 EDT, Height/Length Dosing, 99, kg, 08/11/23 14:57:00 EDT, Weight Dosing Start Date: 08/11/23 Status: Ordered Start: 07-28-2023 take 2 tablets by mo [facility] twice daily carvedilol (Coreg) 3.125 mg tablet Take 2 tablets (6.25 mg) by mouth 2 times a day. 07/28/2023 Active Start: 07-28-2023 take 1 tablet by sabrina every twelve hours carvedilol (Coreg) 3.125 mg tablet Take 1 tablet (3.125 mg) by mouth every 12 hours. 07/28/2023 Active Start: 05-05-2023 take 1 tablet by sabrina twice daily carvedilol 3.125 mg Tab 3.125 mg = 1 tab(s), Oral, BID, # 60 tab(s), Refills(s) 3, Pharmacy: [facility]/pharmacy #[id number], 178, cm, 05/02/23 13:12:00 EST, Height/Length Dosing, 102, kg, 05/02/23 13:12:00 EST, Weight Dosing Start Date: 05/05/23 Status: Ordered Start: 05-05-2023 take 1 tablet by sabrina th twice daily carvedilol 3.125 mg Tab 3.125 mg = 1 tab(s), Oral, BID, # 60 tab(s), Refills(s) 3, Pharmacy: [facility]/pharmacy #[id number], 178, cm, 05/02/23 13:12:00 EST, Height/Length Dosing, 102, kg, 05/02/23 13:12:00 EST, Weight Dosing Start Date: 05/05/23 Status: Ordered DULoxetine 30 mg delayed release oral capsule (10 sources) Serotonin and Norepinephrine Reuptake Inhibitor Start: 04-22-2023 End: 03-02-2024 take 1 capsule by mouth once daily DULoxetine (Cymbalta) [address] capsule Take 30 mg by mouth Daily 04/22/2023 03/02/2024 Discontinued (Side effects) FLUoxetine 20 mg oral capsule (15 sources) Serotonin Reuptake Inhibitor Start: 11-27-2023 End: 03-10-2024 take 1 capsule by mouth in the [...] Active losartan potassium 50 mg oral tablet (13 sources) Angiotensin 2 Receptor Larry Start: 05-30-2023 take 1 tablet by mouth once daily losartan (Cozaar) 50 MG tablet Take 50 mg by mouth Daily 05/30/2023 Active Start: 05-05-2023 take 1 tablet by sabrina th once daily losartan 25 mg Tab 25 mg = 1 tab(s), Oral, Daily, # 30 tab(s), Refills(s) 3, Pharmacy: [facility]/pharmacy #[id number], 178, cm, 05/02/23 13:12:00 EST, Height/Length Dosing, 102, kg, 05/02/23 13:12:00 EST, Weight Dosing Start Date: 05/05/23 Status: Ordered Methocarbamol (10 sources) Muscle Relaxant Methocarbamol (ROBAXIN IJ) Active metoprolol tartrate 25 mg oral tablet (13 sources) beta-Adrenergic Larry Start: 03-20-20 metoprolol tartrate (Lopressor) 25 MG tablet Take 25 mg by mouth 03/20/2023 Active nicotine 2 mg chewing gum (2 sources) Cholinergic Nicotinic Agonist Start: 11-12-19 Nicotine (Polacrilex) Active 2 MG BUCCAL Q2H November 12, 2023 12:00am [place] (No Known Home Meds) (1 source) Start: 03-12-20 [place] (No Known Home Meds) Active 0 March 12, 2021 8:12am oxyCODONE (10 sources) Opioid Agonist oxyCODONE HCl (ROXICODONE PO) Active Polyethylene Glycols (10 sources) POLYETHYLENE GLY COL 3350 PO Active polymyxin b 29274 unt/ml / trimethoprim 1 mg/ml ophthalmic solution (1 source) Dihydrofolate Reductase Inhibitor Antibacterial, Polymyxin-class Antibacterial Start: 12-24-19 Polymyxin B Sulf-Trimethoprim Active 1 DROPS OPHTHALMIC Every three hours 12 28December 24, 2023 12:00am while awake; do not exceed 6 doses in 24 hours prazosin 1 mg oral capsule (3 sources) alpha-Adrenergic Larry take 1 capsule by mouth once daily at bedtime prazosin (Minipress) 1 mg capsule Take 1 capsule (1 mg) by mouth once daily at bedtime. Active pregabalin 50 mg oral capsule (11 sources) Start: 03-09-20 End: 05-08-19 take 1 capsule by mouth in the morning pregabalin (Lyrica) 50 MG capsule Indications: Lumbar radiculopathy Take 1 capsule (50 mg) by mouth in the morning and 1 capsule (50 mg) in the evening and 1 capsule (50 mg) before bedtime. Do not start before March 09, 2024. 90 capsule 1 03/09/2024 05/08/2024 Active Start: 01-07-2024 End: 03-07-2024 take 1 capsule by mouth in the morning, then take 1 capsule by mouth in the evening, then take 1 capsule by mouth at bedtime pregabalin (Lyrica) 25 MG capsule Indications: Lumbar radiculopathy Take 1 capsule (25 mg) by mouth in the morning and 1 capsule (25 mg) in the evening and 1 capsule (25 mg) before bedtime. 90 capsule 1 01/07/2024 03/02/2024 Discontinued (Dose adjustment) sacubitril 24 mg / valsartan 26 mg oral tablet (20 sources) Angiotensin 2 Receptor Larry Start: 2023 take 1 tablet by mouth every twelve hours Entresto 24-26 mg tablet Take 1 tablet by mouth every 12 hours. 2023 Active Start: 06-14-2023 Entresto 24 mg -26 mg oral tablet 1 tab(s), Oral, BID, 60 tab(s), Refill(s) 6, [facility]/pharmacy #[id number], 178, cm, 05/30/23 15:00:00 EST, Height/Length Dosing, 101.3, kg, 05/30/23 15:00:00 EST, Weight Dosing Start Date: 06/14/23 Status: Ordered sacubitril-valsa rtan (Entresto) 24-26 MG tablet Take 1 tablet by mouth in the morning and 1 tablet before bedtime. 1 TABLET . Active sertraline 50 mg oral tablet (14 sources) Serotonin Reuptake Inhibitor Start: 11-06-2023 take 1 tablet by mouth once daily sertraline (Zoloft) 50 MG tablet Take 50 mg by mouth Daily 11/06/2023 Active Start: 02-12-2021 End: 03-12-2021 take 50 mg by mouth once daily Sertraline Discontinued 50 MG PO daily February 12, 2021 9:45am March 12, 2021 9:01am spironolactone 25 mg oral tablet (11 sources) Aldosterone Antagonist Start: 05-30-2023 take 1 tablet by mouth once daily spironolactone 25 mg Tab 25 mg = 1 tab(s), Oral, Daily, # 30 tab(s), Refills(s) 6, Pharmacy: [facility]/pharmacy #[id number], 178, cm, 05/30/23 15:00:00 EST, Height/Length Dosing, 101.3, kg, 05/30/23 15:00:00 EST, Weight Dosing Start Date: 05/30/23 Status: Ordered Completed/Discontinued Medications Medication Drug Class(es) Dates Sig (Normalized) Sig (Original) benzocaine 140 mg/ml / butamben 20 mg/ml / tetracaine 20 mg/ml mucosal spray (1 source) Jeanie Local Anesthetic, Standardized Chemical Allergen Start: 03-10-2024 End: 03-10-2024 As needed, Starting on Fri03/10/24 at 1340, Intraprocedure dronedarone 400 mg oral tablet (3 sources) Antiarrhythmic Start: 12-26-2023 End: 03-10-2024 take 1 tablet by mouth twice daily dronedarone (Multaq) 400 mg tablet Indications: Atrial fibrillation, unspecified type (Multi) Take 1 tablet (400 mg) by mouth 2 times a day. 60 tablet 3 12/26/2023 03/10/2024 Discontinued (Therapy completed) escitalopram 10 mg oral tablet (3 sources) Serotonin Reuptake Inhibitor Start: 08-03-2020 End: 08-22-2020 take 1 tablet by mouth once daily Escitalopram Oxalate (Lexapro) 10 mg tablet Discontinued 10 MG PO DAILY August 03, 2020 11:00am August 22, 2020 9:15am iohexol (OMNIPaque) 350 mg iodine/mL solution 80 mL (1 source) Start: 03-05-2024 End: 03-05-2024 80 mL, intravenous, Once in imaging, Starting on Fri03/05/24 at 1238, For 1 dose lidocaine hydrochloride 0.02 mg/mg topical gel (1 source) Antiarrhythmic, Amide Local Anesthetic Start: 03-10-2024 End: 03-10-2024 As needed, Starting on Fri03/10/24 at 1342, Intraprocedure Problems Active Problems Problem Classification Problem Date Documented Date Episodic/Chronic Administrative/social admission (18 sources) First encounter by subject; Translations: [Persons [...] type] 12-24-2023 Chronic Blindness and vision defects (6 sources) Blurring of visual image; Translations: [Other visual disturbances] 01-06-2024 Episodic Cardiac dysrhythmias (20 sources) Atrial fibrillation; Translations: [Unspecified atrial fibrillation] Onset: 07-07-2023 05-08-2023 Chronic Coronary atherosclerosis and other heart disease (2 sources) Coronary atherosclerosis; Translations: [Atherosclerotic heart disease of [place] coronary artery without angina pectoris] Onset: 08-11-2023 [...] left eye] 12-24-2023 Episodic Malaise and fatigue (13 sources) Fatigue; Translations: [Other fatigue] Onset: 10-07-2023 [...] Onset: 11-28-2021 Episodic Other connective tissue disease (4 sources) Other symptoms and signs involving the musculoskeletal system; Translations: [Other musculoskeletal symptoms referable to limbs] 01-06-2024 Episodic Other connective tissue disease (6 sources) Increased muscle tone; Translations: [Other specified disorders of muscle] 01-06-2024 Episodic Other ear and sense organ disorders (3 sources) Sensorineural hearing loss, bilateral; Translations: [Sensorineural hearing loss, bilateral] Chronic Other ear and sense organ disorders (3 sources) Tinnitus; Translations: [Tinnitus, unspecified ear] Episodic Other ear and sense organ disorders (1 source) Impacted cerumen, bilateral Episodic Other lower respiratory disease (8 sources) Dyspnea on exertion; Translations: [Shortness of breath] Onset: 12-26-2023 12-26-2023 Episodic Other lower respiratory disease (4 sources) Shortness of breath; Translations: [Shortness of breath] Onset: 12-26-2023 Episodic Other nervous system disorders (12 sources) Bilateral carpal tunnel syndrome; Translations: [Carpal tunnel syndrome, bilateral upper limbs] Onset: 07-07-2023 07-07-2023 Chronic Other nervous system disorders (6 sources) Impaired cognition; Translations: [Other symptoms and [...] Episodic Other nutritional; endocrine; and metabolic disorders (6 sources) Overweight in adulthood with body mass [...] Spondylosis; intervertebral disc disorders; other back problems (10 sources) Degeneration of cervical intervertebral disc; Translations: [...] Onset: 04-28-2017 Episodic Other nervous system disorders (10 sources) Numbness and tingling sensation of skin; Translations: [Anesthesia of skin] Onset: 07-07-2023 07-07-2023 Episodic Other nervous system disorders (10 sources) Paresthesia; Translations: [Paresthesia of skin] Onset: [...] Test Name Value Interpretation Reference Range Facility CBC panel Auto (Bld)on 03-10 Erythrocyte distribution width (RBC) [Ratio] 14.2 % 11.5 - 14.5 % [facility] Hematocrit (Bld) [Volume fraction] 40.6 % Low 41.0 - 52.0 % [facility] Hemoglobin (Bld) [Mass/Vol] 13.7 g/dL 13.5 - 17.5 g/dL [facility] Interpretation and review of laboratory results Abnormal [facility] MCH (RBC) [Entitic mass] 31.9 pg 26.0 - 34.0 pg [facility] MCHC (RBC) [Mass/Vol] 33.7 g/dL 32.0 - 36.0 g/dL [facility] MCV (RBC) [Entitic vol] 94 fL 80 - 100 fL [facility] Nucleated RBC/100 WBC (Bld) [Ratio] 0 % [facility] Platelets (Bld) [#/Vol] 349 10*3/uL [facility] RBC (Bld) [#/Vol] 4.3 10*6/uL [facility] WBC (Bld) [#/Vol] 10 10*3/uL [facility] Erythrocyte distribution width (RBC) [Ratio] 14.2 % Normal 11.5-14.5 [facility] Comment on above: Performed By: #### 5 8410-2 #### LUCIA CRUZ ([id number]) [facility] ([facility]) [address] [place] [address] 87188 Hematocrit (Bld) [Volume fraction] 40.6 % Low 41.0-52.0 [facility] Comment on above: Performed By: #### 5 8410-2 #### LUCIA CRUZ ([id number]) [facility] ([facility]) [address] [place] [address] 08567 Hemoglobin (Bld) [Mass/Vol] 13.7 g/dL Normal 13.5-17.5 [facility] Comment on above: Performed By: #### 5 8410-2 #### LUCIA CRUZ ([id number]) [facility] ([facility]) [address] [place] [address] 98503 MCH (RBC) [Entitic mass] 31.9 pg Normal 26.0-34.0 [facility] Comment on above: Performed By: #### 5 8410-2 #### LUCIA CRUZ ([id number]) [facility] ([facility]) [address] [place] [address] 00437 MCHC (RBC) [Mass/Vol] 33.7 g/dL Normal 32.0-36.0 [facility] Comment on above: Performed By: #### 5 8410-2 #### LUCIA CRUZ ([id number]) [facility] ([facility]) [address] [place] [address] 80826 MCV (RBC) [Entitic vol] 94 fL Normal 80-100 U [facility] Comment on above: Performed By: #### 5 8410-2 #### LUCIA CRUZ ([id number]) [facility] ([facility]) [address] [place] [address] 32283 Nucleated RBC/100 WBC (Bld) [Ratio] 0.0 /100 WBCs Normal 0.0-0.0 [facility] Comment on above: Performed By: #### 5 8410-2 #### LUCIA CRUZ ([id number]) [facility] ([facility]) [address] [place] [address] 37916 Platelets (Bld) [#/Vol] 349 x10*3/uL Normal 150-450 [facility] Comment on above: Performed By: #### 5 8410-2 #### LUCIA CRUZ ([id number]) [facility] ([facility]) [address] [place] [address] RBC (Bld) [#/Vol] 4.30 x10*6/uL Low 4.50-5.90 [facility] Comment on above: Performed By: #### 5 8410-2 #### LUCIA CRUZ ([id number]) [facility] ([facility]) [address] [place] [address] WBC (Bld) [#/Vol] 10.0 x10*3/uL Normal 4.4-11.3 [facility] Comment on above: Performed By: #### 5 8410-2 #### LUCIA CRUZ ([id number]) [facility] ([facility]) [address] [place], [place] [id number] Comprehensive metabolic 2000 panelon 03-10-2024 Albumin BCP dye [Mass/Vol] 4.6 g/dL 3.4 - 5.0 g/dL [facility] ALP [Catalytic activity/Vol] 61 U/L 33 - 120 U/L [facility] ALT With P-5'-P [Catalytic activity/Vol] 47 U/L 10 - 52 U/L [facility] Comment on above: Patients treated wit h Sulfasalazine may generate falsely decreased results for ALT. Anion gap [Moles/Vol] 9 mmol/L Low 10 - 2 0 mmol/L [facility] AST With P-5'-P [Catalytic activity/Vol] 29 U/L 9 - 39 U/L [facility] Bilirubin [Mass/Vol] 0.6 mg/dL 0.0 - 1 .2 mg/dL [facility] Calcium [Mass/Vol] 9.5 mg/dL 8.6 - 10. 3 mg/dL [facility] Chloride [Moles/Vol] 103 mmol/L 98 - 10 7 mmol/L [facility] CO2 [Moles/Vol] 32 mmol/L 21 - 32 mmol/L [facility] Creatinine [Mass/Vol] 1.22 mg/dL 0.50 - 1.30 mg/dL [facility] GFR/1.73 sq M.predicted among non-blacks MDRD (S/P/Bld) [Vol rate/Area] 70 mL/min/{1.73_m2} - PINF [facility] Comment on above: Calculations of [place] mated GFR are performed using the 2020 CKD-EPI Study Refit equation without the race variable for the IDMS-Traceable creatinine methods. https://jasn.asnjournals.org/content//ASN.2020 615331 Glucose [Mass/Vol] 91 mg/dL 74 - 99 mg/dL [facility] Interpretation and review of laboratory results Abnormal [facility] Potassium [Moles/Vol] 4.2 mmol/L 3.5 - 5.3 mmol/L [facility] Protein [Mass/Vol] 7.2 g/dL 6.4 - 8.2 g/dL [facility] Sodium [Moles/Vol] 140 mmol/L 136 - 145 mmol/L [facility] Urea nitrogen [Mass/Vol] 9 mg/dL 6 - 23 mg/dL [facility] Albumin BCP dye [Mass/Vol] 4.6 g/dL Normal 3.4-5.0 [facility] Comment on above: Performed By: #### 2 4323-8 #### LUCIA CRUZ ([id number]) [facility] ([facility]) [address] [place] [address] 15522 ALP [Catalytic activity/Vol] 61 U/L Normal 33-120 [facility] Comment on above: Performed By: #### 2 4323-8 #### LUCIA CRUZ ([id number]) [facility] ([facility]) [address] [place] [address] 71642 ALT With P-5'-P [Catalytic activity/Vol] 47 U/L Normal 10-52 [facility] Comment on above: Result Comment: Michelle ents treated with Sulfasalazine may generate falsely decreased results for ALT. Performed By: #### 2 4323-8 #### LUCIA CRUZ ([id number]) [facility] ([facility]) [address] [place] [address] 68950 Anion gap [Moles/Vol] 9 mmol/L Low 10-20 [facility] Comment on above: Performed By: #### 2 4323-8 #### LUCIA CRUZ ([id number]) [facility] ([facility]) [address] [place] [address] 07253 AST With P-5'-P [Catalytic activity/Vol] 29 U/L Normal 9-39 [facility] Comment on above: Performed By: #### 2 4323-8 #### LUCIA CRUZ ([id number]) [facility] ([facility]) [address] [place] [address] 53646 Bilirubin [Mass/Vol] 0.6 mg/dL Normal 0.0-1.2 [facility] Comment on above: Performed By: #### 2 4323-8 #### LUCIA CRUZ ([id number]) [facility] ([facility]) [address] [place] [address] 07636 Calcium [Mass/Vol] 9.5 mg/dL Normal 8.6-10.3 [facility] Comment on above: Performed By: #### 2 4323-8 #### LUCIA CRUZ ([id number]) [facility] ([facility]) [address] [place] [address] Chloride [Moles/Vol] 103 mmol/L Normal 98-107 [facility] Comment on above: Performed By: #### 2 4323-8 #### LUCIA CRUZ ([id number]) [facility] ([facility]) [address] [place] [address] CO2 [Moles/Vol] 32 mmol/L Normal 21-32 [facility] [facility] Comment on above: Performed By: #### 2 4323-8 #### LUCIA CRUZ ([id number]) [facility] ([facility]) [address] [place] [address]88 Creatinine [Mass/Vol] 1.22 mg/dL Normal 0.50-1.30 [facility] Comment on above: Performed By: #### 2 4323-8 #### LUCIA CRUZ ([id number]) [facility] ([facility]) [address] [place] [address] 01139 Glomerular filtration rate/1.73 sq M.predicted 70 mL/min/1.73m*2 Normal >60 [facility] Comment on above: Result Comment: Calc ulations of estimated GFR are performed using the 2020 CKD-EPI Study Refit equation without the race variable for the IDMS-Traceable creatinine methods. https://jasn.asnjournals.org/content/early//ASN.2020 093526 Performed By: #### 2 4323-8 #### LUCIA CRUZ ([id number]) [facility] ([facility]) [address] [place] [address] 69010 Glucose [Mass/Vol] 91 mg/dL Normal 74-99 [facility] Comment on above: Performed By: #### 2 4323-8 #### LUCIA CRUZ ([id number]) [facility] ([facility]) [address] [place] [address] 95388 Potassium [Moles/Vol] 4.2 mmol/L Normal 3.5-5.3 [facility] Comment on above: Performed By: #### 2 4323-8 #### LUCIA CRUZ ([id number]) [facility] ([facility]) [address] [place] [address] 82190 Protein [Mass/Vol] 7.2 g/dL Normal 6.4-8.2 [facility] Comment on above: Performed By: #### 2 4323-8 #### LUCIA CRUZ ([id number]) [facility] ([facility]) [address] [place] [address] 70726 Sodium [Moles/Vol] 140 mmol/L Normal 136-145 [facility] Comment on above: Performed By: #### 2 4323-8 #### NICKIBDIANA CRUZ ([id number]) [facility] ([facility]) [address] [place] [address] 93644 Urea nitrogen [Mass/Vol] 9 mg/dL Normal 6-23 [facility] Comment on above: Performed By: #### 2 4323-8 #### LUCIA AGUILAR RIO CÉSAR ([id number]) [facility] ([facility]) [address] [place] [address] 19560 ECG 12-LEADon 03-10-2024 ECG 12-LEAD Ventricular Rate 81 Atrial Rate 119 QRS Duration 90 Q-T Interval 352 QTC Calculation(Bazett) 408 R Rumely 42 T Rumely 52 QRS Count 13 Q Onset 220 T Offset 396 QTC Fredericia 388 Diagnosis Atrial fibrillation Abnormal ECG No previous ECGs available Confirmed by Lesvia Landis ([id number]) on 03/10/2024 4:02:16 PM Normal [facility] No Panel InformationOrdered By: Lesvia Landis on 03-10-2024 Atrial Rate 119 BPM [facility] Work Phone: Q Onset 220 ms [facility] Work Phone: QRS Count 13 beats [facility] Work Phone: [phone] QRS Duration 90 ms [facility] Work Phone: QT Interval 352 ms [facility] Work Phone: [phone] QTC Calculation(Bazett) 408 ms [facility] Work Phone: [phone] QTC Fredericia 388 ms [facility] Work Phone: [phone] R Rumely 42 degrees [facility] Work Phone: [phone] T Rumely 52 degrees [facility] Work Phone: [phone] T Offset 396 ms [facility] Work Phone: Ventricular Rate 81 BPM [facility] Work Phone: [facility] Work Phone: No Panel Informationon 03-10 Atrial fibrillation Abnormal ECG No previous ECGs available Confirmed by Lesvia Landis ([id number]) on 03/10/2024 4:02:16 PM MUSE Lesvia Landis MD - 03/10/2024 Atrial fibrillation Abnormal ECG No previous ECGs available Confirmed by Lesvia Landis ([id number]) on 03/10/2024 4:02:16 PM [facility] Work Phone: PT and aPTT panel Coag (PPP) on 03-10-2024 aPTT Coag (PPP) [Time] 35 s [facility] INR Coag (PPP) [Relative time] 1.3 {INR} High 0.9 - 1.1 [facility] Interpretation and review of laboratory results Abnormal [facility] PT Coag (PPP) [Time] 14.4 s High [facility] The APTT is no longe r used for monitoring Unfractionated Heparin Therapy. For monitoring Heparin Therapy, use the Heparin Assay. [facility] aPTT Coag (PPP) [Time] 35 s Normal 27-38 Un [facility] Comment on above: Order Comment: The A PTT is no longer used for monitoring Unfractionated Heparin Therapy. For monitoring Heparin Therapy, use the Heparin Assay. Performed By: #### 3 4529-8 #### LUCIA CRUZ ([id number]) [facility] ([facility]) [address] [place] [address] 23815 INR Coag (PPP) [Relative time] 1.3 High 0.9-1.1 [facility] Comment on above: Order Comment: The A PTT is no longer used for monitoring Unfractionated Heparin Therapy. For monitoring Heparin Therapy, use the Heparin Assay. Performed By: #### 3 4529-8 #### LUCIA AGUILAR RIO CÉSAR ([id number]) [facility] ([facility]) [address] [place] [address] 05096 PT Coag (PPP) [Time] 14.4 s High 9.8-12.8 [facility] Comment on above: Order Comment: The A PTT is no longer used for monitoring Unfractionated Heparin Therapy. For monitoring Heparin Therapy, use the Heparin Assay. 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 Agitated saline used as a contrast agent for intraseptal flow evaluation. The patient was sedated. PHYSICIAN INTERPRETATION: ABHISHEK Details: The ABHISHEK probe used was [id number]. Technically adequate omniplane transesophageal echocardiogram performed. Agitated saline contrast and color flow Doppler echo was performed to assess for the presence of a patent foramen ovale. ABHISHEK Medication: The pharynx was anesthetized with Cetacaine spray, lidocaine ointment and viscous lidocaine. The patient was sedated using moderate sedation. Midazolam and Fentanyl was used to sedate the patient for this exam. ABHISHEK Procedure: The probe was passed without difficulty. The following complication was encountered during the procedure: Patient tolerated the procedure well without any apparent complications. Left Ventricle: Left ventricular ejection fraction is low normal, by visual estimate at 50-55%. There are no regional wall motion abnormalities. The left ventricular cavity size is normal. Spectral Doppler shows a normal pattern of left ventricular diastolic filling. Left Atrium: The left atrium is moderately dilated. There is no definite left atrial thrombus present. There is no evidence of a patent foramen ovale. There is a normal sized left atrial appendage. There is no definite left atrial mass present. Right Ventricle: The right ventricle is normal in size. There is normal right ventricular global systolic function. Right Atrium: The right atrium is normal in size. Aortic Valve: The aortic valve appears structurally normal. There is no evidence of aortic valve regurgitation. Mitral Valve: The mitral valve is mildly thickened. There is moderate mitral valve regurgitation. Tricuspid Valve: The tricuspid valve is structurally normal. No evidence of tricuspid regurgitation. Pulmonic Valve: The pulmonic valve is structurally normal. There is no indication of pulmonic valve regurgitation. Pericardium: No pericardial effusion noted. Aorta: The aortic root is normal. CONCLUSIONS: 1. Left ventricular ejection fraction is low normal, by visual estimate at 50-55%. 2. There is normal right ventricular global systolic function. 3. The left atrium is moderately dilated. 4. Moderate mitral valve regurgitation. 5. No left atrial mass. 6. No left atrial thrombus. 7. There is no evidence of a patent foramen ovale. QUANTITATIVE DATA SUMMARY: LV SYSTOLIC FUNCTION BY 2D PLANIMETRY (MOD): Normal Ranges: EF-Visual: 53 % LV EF Reported: 53 % [id number] Caroline Dixon MD Electronically signed on 03/10/2024 at 2:57:41 PM Final Normal [facility] US Heart Transesophagealon 1 05-11-2023 LV EF 53 % [facility] Work Phone: [place] [phone] TRANSESOPHAGEAL ECHOCARDIOGRAM REPORT Patient Name: JUAN CARLOS Steven CHUCKIE Reading Physician: [id number] Caroline Dixon MD Study Date: 03/10/2024 Ordering Provider: [id number] CHEYENNE HORN MRN/PID: [id number] Fellow: Nurse: Sugey Velez RN Date 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 Agitated saline used as a contrast agent for intraseptal flow evaluation. The patient was sedated. PHYSICIAN INTERPRETATION: ABHISHEK Details: The ABHISHEK probe used was [id number]. Technically adequate omniplane transesophageal echocardiogram performed. Agitated saline contrast and color flow Doppler echo was performed to assess for the presence of a patent foramen ovale. ABHISHEK Medication: The pharynx was anesthetized with Cetacaine spray, lidocaine ointment and viscous lidocaine. The patient was sedated using moderate sedation. Midazolam and Fentanyl was used to sedate the patient for this exam. ABHISHEK Procedure: The probe was passed without difficulty. The following complication was encountered during the procedure: Patient tolerated the procedure well without any apparent complications. Left Ventricle: Left ventricular ejection fraction is low normal, by visual estimate at 50-55%. There are no regional wall motion abnormalities. The left ventricular cavity size is normal. Spectral Doppler shows a normal pattern of left ventricular diastolic filling. Left Atrium: The left atrium is moderately dilated. There is no definite left atrial thrombus present. There is no evidence of a patent foramen ovale. There is a normal sized left atrial appendage. There is no definite left atrial mass present. Right Ventricle: The right ventricle is normal in size. There is normal right ventricular global systolic function. Right Atrium: The right atrium is normal in size. Aortic Valve: The aortic valve appears structurally normal. There is no evidence of aortic valve regurgitation. Mitral Valve: The mitral valve is mildly thickened. There is moderate mitral valve regurgitation. Tricuspid Valve: The tricuspid valve is structurally normal. No evidence of tricuspid regurgitation. Pulmonic Valve: The pulmonic valve is structurally normal. There is no indication of pulmonic valve regurgitation. Pericardium: No pericardial effusion noted. Aorta: The aortic root is normal. CONCLUSIONS: 1. Left ventricular ejection fraction is low normal, by visual estimate at 50-55%. 2. There is normal right ventricular global systolic function. 3. The left atrium is moderately dilated. 4. Moderate mitral valve regurgitation. 5. No left atrial mass. 6. No left atrial thrombus. 7. There is no evidence of a patent foramen ovale. 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 Agitated saline used as a contrast agent for intraseptal flow evaluation. The patient was sedated. PHYSICIAN INTERPRETATION: ABHISHEK Details: The ABHISHEK probe used was [id number]. Technically adequate omniplane transesophageal echocardiogram performed. Agitated saline contrast and color flow Doppler echo was performed to assess for the presence of a patent foramen ovale. ABHISHEK Medication: The pharynx was anesthetized with Cetacaine spray, lidocaine ointment and viscous lidocaine. The patient was sedated using moderate sedation. Midazolam and Fentanyl was used to sedate the patient for this exam. ABHISHEK Procedure: The probe was passed without difficulty. The following complication was encountered during the procedure: Patient tolerated the procedure well without any apparent complications. Left Ventricle: Left ventricular ejection fraction is low normal, by visual estimate at 50-55%. There are no regional wall motion abnormalities. The left ventricular cavity size is normal. Spectral Doppler shows a normal pattern of left ventricular diastolic filling. Left Atrium: The left atrium is moderately dilated. There is no definite left atrial thrombus present. There is no evidence of a patent foramen ovale. There is a normal sized left atrial appendage. There is no definite left atrial mass present. Right Ventricle: The right ventricle is normal in size. There is normal right ventricular global systolic function. Right Atrium: The right atrium is normal in size. Aortic Valve: The aortic valve appears structurally normal. There is no evidence of aortic valve regurgitation. Mitral Valve: The mitral valve is mildly thickened. There is moderate mitral valve regurgitation. Tricuspid Valve: The tricuspid valve is structurally normal. No evidence of tricuspid regurgitation. Pulmonic Valve: The pulmonic valve is structurally normal. There is no indication of pulmonic valve regurgitation. Pericardium: No pericardial effusion noted. Aorta: The aortic root is normal. CONCLUSIONS: 1. Left ventricular ejection fraction is low normal, by visual estimate at 50-55%. 2. There is normal right ventricular global systolic function. 3. The left atrium is moderately dilated. 4. Moderate mitral valve regurgitation. 5. No left atrial mass. 6. No left atrial thrombus. 7. There is no evidence of a patent foramen ovale. QUANTITATIVE DATA SUMMARY: LV SYSTOLIC FUNCTION BY 2D PLANIMETRY (MOD): Normal Ranges: EF-Visual: 53 % LV EF Reported: 53 % [id number] Caroline Dixon MD Electronically signed on 03/10/2024 at 2:57:41 PM Final [facility] Work Phone: [facility] Work Phone: VERAB/VERIFY ABORHon 024 ABO group Nom (Bld) O Normal [facility] Comment on above: Order Comment: Thi s is for confirming/verifying history of ABORh on file for transfusion of blood products. If this is not for transfusion, please order an ABO/RH [[id number]]. If you have any questions or unsure what to order, please call the blood bank. Performed By: #### V ERAB #### LUCIA AGUILAR [facility] ([id number]) [facility] ([facility]) [address] [place] [address] D Ag Ql (Bld) Positive [facility] Comment on above: Order Comment: Thi s is for confirming/verifying history of ABORh on file for transfusion of blood products. If this is not for transfusion, please order an ABO/RH [[id number]]. If you have any questions or unsure what to order, please call the blood bank. Performed By: #### V ERAB #### LUCIA [facility] ([id number]) [facility] ([facility]) [address] [place] [address] VERIFY ABO/Rh Group Teston 1 05-11-2023 ABO group Nom (Bld) O Unive [facility] D Ag Ql (Bld) Positive [facility] XR CHEST 2 VIEWSon 4 XR CHEST 2 VIEWS Interpreted By: Logan Alva, STUDY: XR CHEST 2 VIEWS; ; 03/10/2024 1:23 pm INDICATION: Signs/Symptoms:Pre-Op Cryoablation. COMPARISON: None. ACCESSION NUMBER(S): [id number] ORDERING CLINICIAN: RACHAEL RIVERA TECHNIQUE: PA and lateral views of the chest were obtained. FINDINGS: The cardiac silhouette is normal. The lungs are normally aerated. IMPRESSION: Normal chest. MACRO: None Signed by: Logan Alva 03/10/2024 1:40 PM Dictation workstation: [id number] [facility] XR Chest 2 Viewson 4 Normal chest. MACRO: None Signed by: Logan Alva 03/10/2024 1:40 PM Dictation workstation: [id number] [facility] Interpreted By: Logan Alva, STUDY: XR CHEST 2 VIEWS; ; 03/10/2024 1:23 pm INDICATION: Signs/Symptoms:Pre-Op Cryoablation. COMPARISON: None. ACCESSION NUMBER(S): [id number] ORDERING CLINICIAN: RACHAEL RIVERA TECHNIQUE: PA and lateral views of the chest were obtained. FINDINGS: The cardiac silhouette is normal. The lungs are normally aerated. [facility] Logan Alva MD - 03/10/2024 Interpreted By: Logan Alva, STUDY: XR CHEST 2 VIEWS; ; 03/10/2024 1:23 pm INDICATION: Signs/Symptoms:Pre-Op Cryoablation. COMPARISON: None. ACCESSION NUMBER(S): [id number] ORDERING CLINICIAN: RACHAEL RIVERA TECHNIQUE: PA and lateral views of the chest were obtained. FINDINGS: The cardiac silhouette is normal. The lungs are normally aerated. IMPRESSION: Normal chest. MACRO: None Signed by: Logan Alva 03/10/2024 1:40 PM Dictation workstation: [id number] [facility] Work Phone: Radiology Study observation (narrative) [facility] Work Phone: XR Chest 2 ViewsOrdered By: Logan Alva on 03-10-2024 [facility] Work Phone: CT HEART STRUCTURE MORPHOLOG Y W IV CONTRASTon 03-05-2024 CT HEART STRUCTURE MORPHOLOGY W IV CONTRAST Interpreted By: Abisai Patrick, ADDENDUM: Technical: The following is to serve as an over-read for a contrast-enhanced cardiac CT, to evaluate the extravascular structures. Contiguous axial CT sections are performed from level the yamila to the upper abdomen, following the bolus administration of 80 cc of intravenous Omnipaque 350. Findings: The visualized portions of both lungs are clear. A calcified granulomas partially visualized in the left upper lobe There is no sign of pathologic lymph node enlargement. There is no pericardial or pleural effusion. Images through the upper abdomen demonstrate a partially visualized cyst at the upper pole of the left kidney measuring at least 5.3 cm in maximum diameter. The visualized osseous structures are intact. Impression: Exophytic cyst in the upper pole the left kidney measuring least 5.3 cm in diameter though incompletely visualized. Calcified granuloma in the left upper lobe. The extravascular structures are otherwise unremarkable. Signed by: Abisai Patrick 03/05/2024 3:18 PM -------- ORIGINAL REPORT -------- Dictation workstation: [id number] Interpreted By: Abisai Talbot, STUDY: CT HEART STRUCTURE MORPHOLOGY W IV CONTRAST; 03/05/2024 12:37 pm INDICATION: Signs/Symptoms:atrial fibrillation, prior to cryoablation. with history of atrial fibrillation, being evaluated for radiofrequency ablation of pulmonary veins. Cardiac CTA is requested for evaluation of the pulmonary venous anatomy, including ostial measurements. COMPARISON: None. ACCESSION NUMBER(S): [id number] ORDERING CLINICIAN: CHEYENNE HONR TECHNIQUE: Multi-detector CT technology was employed (Blanca CT 64 scanner). Axial, sequential imaging with prospective ECG-triggering (35 % R-R interval ) was performed of the chest following the intravenous administration of contrast material. A low-osmolar contrast agent was used 80 mL of Omnipaque 350. For optimization of anatomic evaluation, multiplanar reconstruction, maximum intensity projections, and advanced 3-D off-line postprocessing were performed on a dedicated stand-alone workstation under the direct supervision of the interpreting physician. CT Dose-Length Product (DLP): 1203 mGy/cm CT Dose Reduction Employed: Yes (Prospective triggering, iterative reconstruction) FINDINGS: Potential study limitations: None. CARDIOVASCULAR INCLUDING MULTIPLANAR REFORMATIONS: CARDIAC CHAMBERS: Normal atrioventricular and ventriculoarterial concordance. LEFT ATRIUM: Left atrium is dilated 4.9 cm. There is no evidence of thrombus in the left atrium or left atrial appendage. PULMONARY VEINS: There is normal anatomy of the pulmonary veins, with four ostia, namely the right superior, right inferior, left superior and left inferior. There is no anomalous pulmonary venous drainage. There is no evidence of pulmonary venous stenosis. PULMONARY OSTIAL MEASUREMENTS: Left superior pulmonary vein 22 x 11 mm Left inferior pulmonary vein 19 x 13 mm Right superior pulmonary vein 18 x 16 mm Right inferior pulmonary vein 20 x 16 mm PULMONARY ARTERIES: The central pulmonary arteries appear normal THORACIC AORTA: The thoracic aorta is normal in course, caliber, and contour. The sinotubular junction is preserved. There is no evidence for acute aortic pathology, such as dissection, intramural hematoma, or contained rupture. The aortic arch is not included in this study. SYSTEMIC VEINS: Normal systemic venous and pulmonary venous return. The SVC and IVC are of normal caliber. AORTIC VALVE: The aortic valve is trileafletin morphology. No thickening/calcificati on. MITRAL VALVE: No thickening/calcificati on. CORONARY ARTERIES: The study is not optimized for the evaluation of coronary arteries. Normal origin of coronary arteries. No significant atherosclerotic or stenotic disease. CORONARY VEINS: The coronary sinus drains normally into the right atrium. PERICARDIUM: There is no pericardial effusion or thickening. IMPRESSION: 1. There is normal anatomy of the pulmonary veins, with four ostia, namely the right superior, right inferior, left superior and left inferior. 2. No evidence of pulmonary venous stenosis. 3. PULMONARY OSTIAL MEASUREMENTS: Left superior pulmonary vein 22 x 11 mm Left inferior pulmonary vein 19 x 13 mm Right superior pulmonary vein 18 x 16 mm Right inferior pulmonary vein 20 x 16 mm 4. Left atrium is dilated 4.9 cm. There is on evidence of left atrial/left atrial appendage thrombus. Reading Sample Selector: Dr. Abisai Talbot, Date: 03/05/2024 12:49 pm Signed by: Abisai Talbot 03/05/2024 12:51 PM Dictation workstation: [id number] [facility] CT Heart W contrast [place] Addendum by Henny Patrick MD on 03/05/2024 3:18 PM EST Interpreted By: Abisai Patrick, ADDENDUM: Technical: The following is to serve as an over-read for a contrast-enhanced cardiac CT, to evaluate the extravascular structures. Contiguous axial CT sections are performed from level the yamila to the upper abdomen, following the bolus administration of 80 cc of intravenous Omnipaque 350. Findings: The visualized portions of both lungs are clear. A calcified granulomas partially visualized in the left upper lobe There is no sign of pathologic lymph node enlargement. There is no pericardial or pleural effusion. Images through the upper abdomen demonstrate a partially visualized cyst at the upper pole of the left kidney measuring at least 5.3 cm in maximum diameter. The visualized osseous structures are intact. Impression: Exophytic cyst in the upper pole the left kidney measuring least 5.3 cm in diameter though incompletely visualized. Calcified granuloma in the left upper lobe. The extravascular structures are otherwise unremarkable. Signed by: Abisai Patrick 03/05/2024 3:18 PM -------- ORIGINAL REPORT -------- Dictation workstation: [id number] [facility] Work Phone: 1. There is normal anatomy of the pulmonary veins, with four ostia, namely the right superior, right inferior, left superior and left inferior. 2. No evidence of pulmonary venous stenosis. 3. PULMONARY OSTIAL MEASUREMENTS: Left superior pulmonary vein 22 x 11 mm Left inferior pulmonary vein 19 x 13 mm Right superior pulmonary vein 18 x 16 mm Right inferior pulmonary vein 20 x 16 mm 4. Left atrium is dilated 4.9 cm. There is on evidence of left atrial/left atrial appendage thrombus. Reading Sample Selector: Dr. Abisai Talbot, Date: 03/05/2024 12:49 pm Signed by: Abisai Talbot 03/05/2024 12:51 PM Dictation workstation: [id number] MMODAL Interpreted By: Abisai Talbot, STUDY: CT HEART STRUCTURE MORPHOLOGY W IV CONTRAST; 03/05/2024 12:37 pm INDICATION: Signs/Symptoms:atrial fibrillation, prior to cryoablation. with history of atrial fibrillation, being evaluated for radiofrequency ablation of pulmonary veins. Cardiac CTA is requested for evaluation of the pulmonary venous anatomy, including ostial measurements. COMPARISON: None. ACCESSION NUMBER(S): [id number] ORDERING CLINICIAN: CHEYENNE HORN TECHNIQUE: Multi-detector CT technology was employed (Blanca CT 64 scanner). Axial, sequential imaging with prospective ECG-triggering (35 % R-R interval ) was performed of the chest following the intravenous administration of contrast material. A low-osmolar contrast agent was used 80 mL of Omnipaque 350. For optimization of anatomic evaluation, multiplanar reconstruction, maximum intensity projections, and advanced 3-D off-line postprocessing were performed on a dedicated stand-alone workstation under the direct supervision of the interpreting physician. CT Dose-Length Product (DLP): 1203 mGy/cm CT Dose Reduction Employed: Yes (Prospective triggering, iterative reconstruction) FINDINGS: Potential study limitations: None. CARDIOVASCULAR INCLUDING MULTIPLANAR REFORMATIONS: CARDIAC CHAMBERS: Normal atrioventricular and ventriculoarterial concordance. LEFT ATRIUM: Left atrium is dilated 4.9 cm. There is no evidence of thrombus in the left atrium or left atrial appendage. PULMONARY VEINS: There is normal anatomy of the pulmonary veins, with four ostia, namely the right superior, right inferior, left superior and left inferior. There is no anomalous pulmonary venous drainage. There is no evidence of pulmonary venous stenosis. PULMONARY OSTIAL MEASUREMENTS: Left superior pulmonary vein 22 x 11 mm Left inferior pulmonary vein 19 x 13 mm Right superior pulmonary vein 18 x 16 mm Right inferior pulmonary vein 20 x 16 mm PULMONARY ARTERIES: The central pulmonary arteries appear normal THORACIC AORTA: The thoracic aorta is normal in course, caliber, and contour. The sinotubular junction is preserved. There is no evidence for acute aortic pathology, such as dissection, intramural hematoma, or contained rupture. The aortic arch is not included in this study. SYSTEMIC VEINS: Normal systemic venous and pulmonary venous return. The SVC and IVC are of normal caliber. AORTIC VALVE: The aortic valve is trileafletin morphology. No thickening/calcificati on. MITRAL VALVE: No thickening/calcificati on. CORONARY ARTERIES: The study is not optimized for the evaluation of coronary arteries. Normal origin of coronary arteries. No significant atherosclerotic or stenotic disease. CORONARY VEINS: The coronary sinus drains normally into the right atrium. PERICARDIUM: There is no pericardial effusion or thickening. MMODAL Abisai Talbot D O / Henny Patrick MD - 03/05/2024 Interpreted By: Abisai Talbot, STUDY: CT HEART STRUCTURE MORPHOLOGY W IV CONTRAST; 03/05/2024 12:37 pm INDICATION: Signs/Symptoms:atrial fibrillation, prior to cryoablation. with history of atrial fibrillation, being evaluated for radiofrequency ablation of pulmonary veins. Cardiac CTA is requested for evaluation of the pulmonary venous anatomy, including ostial measurements. COMPARISON: None. ACCESSION NUMBER(S): [id number] ORDERING CLINICIAN: CHEYENNE HORN TECHNIQUE: Multi-detector CT technology was employed (Eximia CT 64 scanner). Axial, sequential imaging with prospective ECG-triggering (35 % R-R interval ) was performed of the chest following the intravenous administration of contrast material. A low-osmolar contrast agent was used 80 mL of Omnipaque 350. For optimization of anatomic evaluation, multiplanar reconstruction, maximum intensity projections, and advanced 3-D off-line postprocessing were performed on a dedicated stand-alone workstation under the direct supervision of the interpreting physician. CT Dose-Length Product (DLP): 1203 mGy/cm CT Dose Reduction Employed: Yes (Prospective triggering, iterative reconstruction) FINDINGS: Potential study limitations: None. CARDIOVASCULAR INCLUDING MULTIPLANAR REFORMATIONS: CARDIAC CHAMBERS: Normal atrioventricular and ventriculoarterial concordance. LEFT ATRIUM: Left atrium is dilated 4.9 cm. There is no evidence of thrombus in the left atrium or left atrial appendage. PULMONARY VEINS: There is normal anatomy of the pulmonary veins, with four ostia, namely the right superior, right inferior, left superior and left inferior. There is no anomalous pulmonary venous drainage. There is no evidence of pulmonary venous stenosis. PULMONARY OSTIAL MEASUREMENTS: Left superior pulmonary vein 22 x 11 mm Left inferior pulmonary vein 19 x 13 mm Right superior pulmonary vein 18 x 16 mm Right inferior pulmonary vein 20 x 16 mm PULMONARY ARTERIES: The central pulmonary arteries appear normal THORACIC AORTA: The thoracic aorta is normal in course, caliber, and contour. The sinotubular junction is preserved. There is no evidence for acute aortic pathology, such as dissection, intramural hematoma, or contained rupture. The aortic arch is not included in this study. SYSTEMIC VEINS: Normal systemic venous and pulmonary venous return. The SVC and IVC are of normal caliber. AORTIC VALVE: The aortic valve is trileafletin morphology. No thickening/calcificati on. MITRAL VALVE: No thickening/calcificati on. CORONARY ARTERIES: The study is not optimized for the evaluation of coronary arteries. Normal origin of coronary arteries. No significant atherosclerotic or stenotic disease. CORONARY VEINS: The coronary sinus drains normally into the right atrium. PERICARDIUM: There is no pericardial effusion or thickening. IMPRESSION: 1. There is normal anatomy of the pulmonary veins, with four ostia, namely the right superior, right inferior, left superior and left inferior. 2. No evidence of pulmonary venous stenosis. 3. PULMONARY OSTIAL MEASUREMENTS: Left superior pulmonary vein 22 x 11 mm Left inferior pulmonary vein 19 x 13 mm Right superior pulmonary vein 18 x 16 mm Right inferior pulmonary vein 20 x 16 mm 4. Left atrium is dilated 4.9 cm. There is on evidence of left atrial/left atrial appendage thrombus. Reading Sample Selector: Dr. Abisai Talbot, Date: 03/05/2024 12:49 pm Signed by: Abisai Talbot 03/05/2024 12:51 PM Dictation workstation: [id number] [facility] Work Phone: Radiology Study observation (narrative) [facility] Work Phone: CT Heart W contrast IVOrdere d By: Henny Patrick on 03-05-2024 [facility] Work Phone: Creatinineon 03-05-2024 Creatinine [Mass/Vol] 1.30 mg/dL Normal 0.60-1.30 [facility] Comment on above: Result Comment: Hydr oxyurea can cause significant interference with creatinine measurement using the i-STAT device. An alternate method of creatinine measurement must be used in patients treated with hydroxyurea. Performed By: #### 2 160-0 #### LUCIA CRUZ ([id number]) [facility] ([facility]) [address] [place] [address] Creatinine [Mass/Vol]on 02-21 GFR/1.73 sq M.predicted MDRD (S/P/Bld) [Vol rate/Area] 65 mL/min/{1.73_m2} - PINF [facility] Comment on above: Calculations of apolonia mated GFR are performed using the 2020 CKD-EPI Study Refit equation without the race variable for the IDMS-Traceable Creatinine Methods. https://jasn.asnjournals.org/content/earlyASN 767431 Interpretation and review of laboratory results Normal [facility] GFR/1.73 sq M.predicted MDRD (S/P/Bld) [Vol rate/Area] 65 mL/min/1.73m*2 Normal >=60 [facility] Comment on above: Result Comment: Calc ulations of estimated GFR are performed using the 2020 CKD-EPI Study Refit ???equation without the race variable for the IDMS-Traceable Creatinine Methods. https://jasn.asnjournals.org/content/ASN 647308 Performed By: #### 2 160-0 #### LUCIA CRUZ ([id number]) [facility] ([facility]) [address] [place] [address] POCT CREATININE AND GFRon Creatinine [Mass/Vol] 1.3 mg/dL 0.60 - 1.30 mg/dL [facility] Comment on above: Hydroxyurea can caus e significant interference with creatinine measurement using the i-STAT device. An alternate method of creatinine measurement must be used in patients treated with hydroxyurea. 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 2. Cardiomyopathy (I42.9: Cardiomyopathy, [...] 01/30/2024 Family History Heart disease: Father. Normal [facility] Comment on above: Result Comment: Elec tronically Signed By: Antonia RUBIO, Tylor Potter\.br\Date and Time Signed: 01/30/24 14:54 EST ALL MYOGLOBINon 01-16-2024 Myoglobin [Mass/Vol] 48 ng/mL 16 - 96 ng/mL [facility] ALL THYROID STIM HORMONEon 1 TSH Qn 3.05 m[IU]/L [facility] CKon 01-16-2024 CK [Catalytic activity/Vol] 102 U/L 39 - 308 U/L [facility] No Panel Informationon 01-15 CLINISYNC [facility] Heart and Vascular Office/Cl inic Noteon 12-30-2023 [...] 12/30/2023 Family History Heart disease: Father. Normal [facility] Comment on above: Result Comment: Elec tronically Signed By: Antonia RUBIO, Tylor Potter\.br\Date and Time Signed: 12/30/23 15:02 EDT ECG 12 Leadon 12-26-2023 See scan [facility] Work Phone: [facility] Work Phone: Heart and Vascular Office/Cl [...] More recently, he was at [facility] for some rehabilitation in was [...] 11/28/2023 Family History Heart disease: Father. Normal [facility] Comment on above: Result Comment: Elec tronically Signed By: Antonia RUBIO, Tylor Potter\.br\Date and Time Signed: 11/28/23 12:09 EDT Cholesterol [Mass/volume] in Serum or PlasmaOrdered By: Ronaldo Castro on 11-07-2023 Cholesterol [Mass/Vol] 110 mg/dL Low 140-200 [facility] Comment on above: Chol less than 200 m g/dl low riskChol 201-239 mg/dl borderline riskChol 240 mg/dl and greater high risk Result Comment: Chol less than 200 mg/dl low risk Chol 201-239 mg/dl borderline risk Chol 240 mg/dl and greater high risk Performed By: #### L IPID, TSH3 wRFLX, [id number] #### [address] Cholesterol in LDL Calc [Mas s/Vol]Ordered By: Ronaldo Castro on 11-07-2023 Cholesterol in LDL [Mass/Vol] 61 mg/dL 0-100 [facility] Comment on above: LDL ATP III CLASSIFI CATIONLDL less than 100 mg/dL OptimalLDL 100-129 mg/dL Near or above optimalLDL 130-159 mg/dL Borderline highLDL 160-189 mg/dL HighLDL greater than 189 mg/dL Very high Cholesterol in VLDL Calc [Ma ss/Vol]Ordered By: Ronaldo Castro on 11-07-2023 Cholesterol in VLDL [Mass/Vol] 16 mg/dL [facility] ECG 12 lead ECGon 11-07-2023 ECG 12 lead ECG [facility] Main [address] [address] Electrocardiograph Report Signed Patient: Juan Carlos Noguera MR#: [id number] [birth year] : 1970 Acct:[id number] Age/Sex: 53 / M ADM Date: 11/06/23 Loc: 1S Room: [address] [place] [address] Type: ADM IN Attending Dr: Ronaldo Castro [...] in Inferior leads Confirmed by Salvador Lira ([id number]) on 11/07/2023 10:18:08 AM Referred By: Electronically Signed By: Salvador Lira Transcribed By: MUS Signed By Salvador Lira MD 11/07/23 1018 Normal [facility] ECG 12 lead ECG [address] [address] Electrocardiograph Report Signed Patient: Juan Carlos Noguera MR#: [id number] 34 : 1970 Acct:[id number] Age/Sex: 53 / M ADM Date: 11/06/23 Loc: 1S Room: [address] [place] [address] Type: ADM IN Attending Dr: Ronaldo Castro [...] previous ECGs available Confirmed by Salvador Lira ([id number]) on 11/07/2023 1:07:23 PM Referred By: Electronically Signed By: Salvador Lira Transcribed By: MUS Signed By Salvador Lira MD 11/07/23 1307 Normal [facility] Lipid Panelon 11-07-2023 LDL Cholesterol,Calculated 61 mg/dL Normal 0-100 [facility] Comment on above: Result Comment: LDL ATP III CLASSIFICATION LDL less than 100 mg/dL Optimal LDL 100-129 mg/dL Near or above optimal LDL 130-159 mg/dL Borderline high LDL 160-189 mg/dL High LDL greater than 189 mg/dL Very high Performed By: #### L IPID, TSH3 wRFLX, [id number] #### [address] Triglyceride w/Reflex 84 mg/dL Normal 0-149 [facility] Comment on above: Result Comment: TRIG ATP III CLASSIFICATION TRIG less than 150 mg/dL Normal TRIG 150-199 mg/dL Borderline high TRIG 200-500 mg/dL High TRIG greater than 500 mg/dL Very high Standard traceable to the Center for Disease Conrtrol and Prevention (CDC) test method. Performed By: #### L IPID, TSH3 wRFLX, [id number] #### [facility] [address] [place] [address] VLDL CHOLESTEROL 16 mg/dL Normal [facility] Comment on above: Performed By: #### L IPID, TSH3 wRFLX, [id number] #### [facility] [address] Serum or plasma high density lipoprotein (HDL) cholesterol measurementOrdered By: Ronaldo Castro on 11-07-2023 Cholesterol in HDL [Mass/Vol] 32 mg/dL Normal 23-92 [facility] Comment on above: HDL CHOL ATP-III CLA SSIFICATION Cardiovascular RiskHDL > or equal to 60 mg/dL LOWHDL < 40 mg/dL HIGH Result Comment: HDL CHOL ATP-III CLASSIFICATION Cardiovascular Risk HDL > or equal to 60 mg/dL LOW HDL < 40 mg/dL HIGH Performed By: #### L IPID, TSH3 wRFLX, [id number] #### [facility] [address] [place] [address] Serum or plasma total choles terol/high density lipoprotein (HDL) cholesterol mass ratOrdered By: Ronaldo Castro on 11-07-2023 Cholesterol.total/Barbara sterol in HDL [Mass ratio] 3.4 {ratio} Normal <5.0 [facility] Comment on above: Performed By: #### L IPID, TSH3 wRFLX, [id number] #### [facility] [address] [place] [address] Thyroid Stim Hormone w/Rflxo n 11-07-2023 Thyroid Stim Hormone w/Rflx 0.87 u[iU]/mL Normal 0.45-5.33 [facility] Comment on above: Performed By: #### L IPID, TSH3 wRFLX, [id number] #### [facility] [address] [place] [address] Thyrotropin [Units/volume] i n Serum or PlasmaOrdered By: Ronaldo Castro on 11-07-2023 TSH Qn 0.87 m[IU]/L 0.45-5.33 [facility] Triglyceride [Mass/volume] i n Serum or PlasmaOrdered By: Ronaldo Castro on 11-07-2023 Triglyceride [Mass/Vol] 84 mg/dL 0-149 [facility] Comment on above: TRIG ATP III CLASSIF ICATIONTRIG less than 150 mg/dL NormalTRIG 150-199 mg/dL Borderline highTRIG 200-500 mg/dL High TRIG greater than 500 mg/dL Very highStandard traceable to the Center for Disease Conrtrol and Prevention (CDC) test method. Vitamin D 25 Hydroxy Totalon 11-07-2023 Vitamin D 25 Hydroxy Total 28.2 ng/mL Low 30-100 [facility] Comment on above: Result Comment: ULISES MIN D STATUS 25(OH)VITAMIN D RANGE (ng/mL) Deficient <20 Insufficient 20 to <30 Sufficient 30 to 100 Reference: Savannah Villalobos, Sindi RAMACHANDRAN, et al. Evaluation,treatment, and prevention of vitamin D deficiency; an Endocrine Society clinical practice guideline. JCEM. 2010; 96(7):1911-. PERFORMED BY: [facility] [address] [place] [address] PATHOLOGIST SMOG TECHNICIAN DIMAS BUCKLEY M.D. Performed By: #### L IPID, TSH3 wRFLX, [id number] #### [facility] [address] [place] [id number] [facility] Vitamin D+Metabolites [Mass/ volume] in Serum or PlasmaOrdered By: Ronaldo Castro on 11-07-2023 Vitamin D+Metabolites [Mass/Vol] 28.2 ng/mL Low 30-100 [facility] Comment on above: VITAMIN D STATUS [...] ALT [Catalytic activity/Vol] 14 U/L Normal 7-52 [facility] Comment on above: Performed By: #### C BC, ETOH, CMP ####[facility] [id number] [place] [address] [place] Albumin [Mass/volume] in Ser um or Plasma by Bromocresol green (BCG) dye binding methoOrdered By: Gem Mcintosh on 11-06-2023 Albumin BCG dye [Mass/Vol] 4.3 g/dL 3.5-5.7 [facility] Alkaline phosphatase [Enzyma tic activity/volume] in Serum or PlasmaOrdered By: Gem Mcintosh on 11-06-2023 ALP [Catalytic activity/Vol] 61 U/L Normal 34-104 [facility] Comment on above: Performed By: #### C BC, ETOH, CMP ####[place] [address] [place] [id number] [facility] Amphetamine Screen Ql (U)Ord ered By: Gem Mcintosh on 11-06-2023 Amphetamines Ql (U) Negative Negative [facility] Aspartate aminotransferase [ Enzymatic activity/volume] in Serum or PlasmaOrdered By: Gem Mcintosh on 11-06-2023 AST [Catalytic activity/Vol] 15 U/L Normal 13-39 [facility] Comment on above: Performed By: #### C BC, ETOH, CMP ####[place] [address] Automated basophil %Ordered By: Gem Mcintosh on 11-06-2023 Basophils/100 WBC (Bld) 1.2 % Normal . [facility] Comment on above: Performed By: #### C BC, ETOH, CMP ####[place] [address] [place] [id number] [facility] Automated basophil countOrde red By: Gem Mcintosh on 11-06-2023 Basophils (Bld) [#/Vol] 0.2 10*3/uL Normal 0.0-0.2 [facility] Comment on above: Result Comment: PERF ORMED BY: [facility] [address] [place] [id number] PATHOLOGIST SMOG TECHNICIAN DIMAS BUCKLEY M.D. Performed By: #### C BC, ETOH, CMP ####[place] [address] [place] [id number] [facility] Automated blood monocyte cou ntOrdered By: Gem Mcintosh on 11-06-2023 Monocytes (Bld) [#/Vol] 1.3 10*3/uL High 0.0-0.8 [facility] Comment on above: Performed By: #### C BC, ETOH, CMP ####[address] Automated eosinophil %Ordere d By: Gem Mcintosh on 11-06-2023 Eosinophils/100 WBC (Bld) 1.2 % Normal . [facility] Comment on above: Performed By: #### C BC, ETOH, CMP ####[address] Automated eosinophil countOr dered By: Gem Mcintosh on 11-06-2023 Eosinophils (Bld) [#/Vol] 0.2 10*3/uL Normal 0.0-0.45 [facility] Comment on above: Performed By: #### C BC, ETOH, CMP ####[address] Automated epithelial cells c ount in urine sediment (number/area)Ordered By: Gem Mcintosh on 11-06-2023 Epithelial cells Auto (Urine sed) [#/Area] 1-2 [HPF] 0-2 [facility] Automated monocyte %Ordered By: Gem Mcintosh on 11-06-2023 Monocytes/100 WBC (Bld) 9.6 % Normal . [facility] Comment on above: Performed By: #### C BC, ETOH, CMP ####[address] Automated neutrophil %Ordere d By: Gem Mcintosh on 11-06-2023 Neutrophils/100 WBC (Bld) 66.4 % Normal . [facility] Comment on above: Performed By: #### C BC, ETOH, CMP ####[address] Bacteria [Presence] in Urine by AutomatedOrdered By: Gem Mcintosh on 11-06-2023 Bacteria Auto Ql (U) None seen [HPF] None Seen [facility] Barbiturates [Presence] in U rine by Screen methodOrdered By: Gem Mcintosh on 11-06-2023 Barbiturates Screen Ql (U) Negative Negative [facility] Benzodiazepines Screen Ql (U )Ordered By: Gem Mcintosh on 11-06-2023 Benzodiazepines Ql (U) Negative Negative [facility] Benzoylecgonine [Presence] i n Urine by Screen methodOrdered By: Gem Mcintosh on 11-06-2023 Benzoylecgonine Screen Ql (U) Negative Negative [facility] Bilirubin Test strip Ql (U)O rdered By: Gem Mcintosh on 11-06-2023 Bilirubin Ql (U) Negative Negative [facility] Bilirubin.total [Mass/volume ] in Serum or PlasmaOrdered By: Gem Mcintosh on 11-06-2023 Bilirubin [Mass/Vol] 0.6 mg/dL Normal 0.3-1.0 [facility] Comment on above: Performed By: #### C BC, ETOH, CMP ####[facility] [id number] [place] [id number] [facility] COVID CepheidOrdered By: Emigdio Mcintosh on 11-06-2023 SARS-CoV-2 (COVID-19) Ab IA Ql Negative Negative [facility] Comment on above: This is a duplicate Cepheid Xpert Xpress CoV-2/Flu/RSV Plus RNA by RT-PCR result to be used for statistical tracking purpose only. SARS-CoV-2 (COVID-19) RNA ARAVIND+probe Ql (Unsp spec) [facility] COVID-19 / Flu A/B / RSV [...] or Cepheid Disclaimer revoked sooner. PERFORMED BY: [facility] [address] [place] [address] PATHOLOGIST SMOG TECHNICIAN DIMAS BUCKLEY M.D. Normal [facility] Comment on above: Performed By: #### C OVID19 FLU RSV, CEPHEID NEG ####[facility] [id number] [place] [address] [facility] Calcium [Mass/volume] in Ser um or PlasmaOrdered By: Gem Mcintosh on 11-06-2023 Calcium [Mass/Vol] 9.0 mg/dL Normal 8.6-10.3 [facility] Comment on above: Performed By: #### C BC, ETOH, CMP ####[facility] [id number] [place] [address] [facility] Cannabinoids [Presence] in U rine by Screen methodOrdered By: Gem Mcintosh on 11-06-2023 Cannabinoids Screen Ql (U) Negative Negative [facility] Comment on above: These are unconfirme d results and should not be used for legal purposes. Drug Cut-Off Concentration: AMPH 1000 ng/mL WILLIAM 200 ng/mL SALIMA 200 ng/mL COCM 300 ng/mL OP 300 ng/mL PCP 25 ng/mL THC 20 ng/mL Carbon dioxide, total [Moles /volume] in Serum or PlasmaOrdered By: Gem Mcintosh on 11-06-2023 CO2 [Moles/Vol] 29.4 mmol/L Normal 21.0-31.0 [facility] Comment on above: Performed By: #### C BC, ETOH, CMP ####[place] [address] Cepheid COVID PCR Negativeon 11-06-2023 SARS-CoV-2 (COVID-19) RNA ARAVIND+probe Ql (Unsp spec) Negative Normal Negative [facility] Comment on above: Result Comment: This is a duplicate Cepheid Xpert Xpress CoV-2/Flu/RSV Plus RNA by RT-PCR result to be used for statistical tracking purpose only. PERFORMED BY: [facility] [address] [place] [address] PATHOLOGIST SMOG TECHNICIAN DIMAS BUCKLEY M.D. Performed By: #### C OVID19 FLU RSV, CEPHEID NEG ####[place] [address] [place] [id number] [facility] Chloride [Moles/volume] in S seamus or PlasmaOrdered By: Gem Mcintosh on 11-06-2023 Chloride [Moles/Vol] 102 mmol/L Normal 98-107 [facility] Comment on above: Performed By: #### C BC, ETOH, CMP ####[place] [address] [place] [id number] [facility] Color of Urine by AutoOrdere d By: Gem Mcintosh on 11-06-2023 Color (U) Yellow Normal Yellow [facility] Comment on above: Order Comment: Name Collection Type:: Clean-Voided Midstream Performed By: #### A DDONUAPLUS, URDS #### [facility] [address] [place] [address] [place] Complete Blood Count Auto Di ffon 11-06-2023 Mean Corpuscular HGB Conc 33.8 g/dL Normal 32.5-35.6 The [facility] Comment on above: Performed By: #### C BC, ETOH, CMP ####[place] [id number] [place] [id number] [facility] Monocytes/100 WBC (Bld) 16.55 % Normal 0.00-20.00 T he [facility] Comment on above: Performed By: #### C BC, ETOH, CMP ####[place] [address] [place] [id number] [facility] NRBC% 0.1 /100{WBC} Normal 0-0.5 The [facility] Comment on above: Performed By: #### C BC, ETOH, CMP ####[place] [address] [place] [id number] [facility] Comprehensive Metabolic Pane du 11-06-2023 Albumin [Mass/Vol] 4.3 g/dL Normal 3.5-5.7 [facility] Comment on above: Performed By: #### C BC, ETOH, CMP ####[place] [id number] [facility] Creatinine Clr Calc Pharmacy 99.02 Normal The [facility] Comment on above: Result Comment: PERF ORMED BY: [facility] [address] [place] [id number] PATHOLOGIST SMOG TECHNICIAN DIMAS BUCKLEY M.D. Performed By: #### C BC, ETOH, CMP ####[place] [id number] [facility] GFR/1.73 sq M.predicted MDRD (S/P/Bld) [Vol rate/Area] mL/min/{1.73_m2} Normal The [facility] Comment on above: Performed By: #### C BC, ETOH, CMP ####[place] [id number] [facility] Creatinine [Mass/volume] in Serum or PlasmaOrdered By: Gem Mcintosh on 11-06-2023 Creatinine [Mass/Vol] 0.98 mg/dL Normal 0.70-1.[address] [facility] Comment on above: Performed By: #### C BC, ETOH, CMP ####[facility] [id number] [place] [address] [place] Dipstick and Microscopicon 0 11-06-2023 Appearance (U) Clear Normal Clear The [facility] Comment on above: Order Comment: Name Collection Type:: Clean-Voided Midstream Performed By: #### A DDONUAPLUS, URDS #### [facility] [address] [place] [address] [place] Bacteria,Urine None Seen Normal None Seen The [facility] Comment on above: Order Comment: Name Collection Type:: Clean-Voided Midstream Performed By: #### A DDONUAPLUS, URDS #### [place] [address] [place] Bilirubin,Urine Negative Normal Negative The [facility] Comment on above: Order Comment: Name Collection Type:: Clean-Voided Midstream Performed By: #### A DDONUAPLUS, URDS #### [address] Glucose Ql (U) Normal Normal Normal The [facility] Comment on above: Order Comment: Name Collection Type:: Clean-Voided Midstream Performed By: #### A DDONUAPLUS, URDS #### [place] [address] [place] Hyaline Casts,Urine 0-8 Normal 0-8 The [facility] Comment on above: Order Comment: Name Collection Type:: Clean-Voided Midstream Result Comment: PERF ORMED BY: [place] [address] PATHOLOGIST SMOG TECHNICIAN DIMAS BUCKLEY M.D. Performed By: #### A DDONUAPLUS, URDS #### [place] [address] [place] Ketones Ql (U) Trace High Negative The [facility] Comment on above: Order Comment: Name Collection Type:: Clean-Voided Midstream Performed By: #### A DDONUAPLUS, URDS #### [place] [address] Leukocyte esterase Test strip Ql (U) Negative Normal Negative The [facility] Comment on above: Order Comment: Name Collection Type:: Clean-Voided Midstream Performed By: #### A DDONUAPLUS, URDS #### [place] [address] [place] Nitrite,Urine Negative Normal Negative The [facility] Comment on above: Order Comment: Name Collection Type:: Clean-Voided Midstream Performed By: #### A DDONUAPLUS, URDS #### [address] Occult Blood,Urine Negative Normal Negative [facility] Comment on above: Order Comment: Name Collection Type:: Clean-Voided Midstream Result Comment: PERF ORMED BY: [place] [address] PATHOLOGIST SMOG TECHNICIAN DIMAS BUCKLEY M.D. Performed By: #### A DDONUAPLUS, URDS #### [address] RBC,Urine 1-2 Normal 0-4 The [facility] Comment on above: Order Comment: Name Collection Type:: Clean-Voided Midstream Performed By: #### A DDONUAPLUS, URDS #### [address] Specificy [place],Urine 1.017 Normal 1.001-1.030 The [facility] Comment on above: Order Comment: Name Collection Type:: Clean-Voided Midstream Performed By: #### A DDONUAPLUS, URDS #### [place] [address] [place] Squamous Epithelial Cell,Urine 1-2 Normal 0-2 The [facility] Comment on above: Order Comment: Name Collection Type:: Clean-Voided Midstream Performed By: #### A DDONUAPLUS, URDS #### [address] Urobilinogen,Urine Normal Normal Normal [facility] Comment on above: Order Comment: Name Collection Type:: Clean-Voided Midstream Performed By: #### A DDONUAPLUS, URDS #### [address] WBC,Urine 1-2 Normal 0-4 The [facility] Comment on above: Order Comment: Name Collection Type:: Clean-Voided Midstream Performed By: #### A DDONUAPLUS, URDS #### [place] [address] [place] Drug Screen,Urineon 11-06-19 24 Amphetamine Screen,Urine Negative Normal Negative The [facility] Comment on above: Performed By: #### A DDONUAPLUS, URDS #### [address] Barbiturate Screen,Urine Negative Normal Negative The [facility] Comment on above: Performed By: #### A DDONUAPLUS, URDS #### [address] Benzodiazepines Screen,Urine Negative Normal Negative The [facility] Comment on above: Performed By: #### A DDONUAPLUS, URDS #### [address] Cannabinoid Screen,Urine Negative Normal Negative The [facility] Comment on above: Result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 radial artery without complication. Nitroglycerin and nicardipine were given via the sheath and heparin was given intravenously. A 5 Kazakh JACKE catheter was advanced and selectively engaged [...] end of the procedure without complication. Normal [facility] Comment on above: Result Comment: Elec tronically Signed By: Isaura RUBIO, Zeb Reza\.br\Date and Time Signed: 05/13/23 13:46 EST Consent for Procedure/Surger yon 05-09-2023 Consent for Procedure/Surgery [id number]#1. 00TIFF [facility] Discharge Instructionson Discharge Instructions [id number]#1. 00TIFF Normal [facility] Cardiovascular Reporton 04-24 Cardiovascular Report [id number] [id number]#1. 00TIFF Normal [facility] Consent for Treatmenton 04-24 Consent for Treatment [id number] 4020 [id number]#1.0 0TIFF [facility] Inpatient Clinical Summaryon 05-08-2023 Inpatient Clinical Summary [address] [address] Clinical Summary Person Information: Name: JUAN CARLOS NOGUERA Age: 52 Years : 1970 Sex: Male PCP: MORENO BARRERA MD Marital Status: Race: White Ethnicity: Non- or Language: [place]ian Visit Id: Visit Reason: R94.39 R07.9 Speciality: Acuity: Enc Type: Ambulatory/Same Day Surgery Med Service: Cardiovascular Arrival: 05/08/2023 09:48:23 Discharge: Dispo Type: Address: [address] [place] [address] [phone] Provider Notes: Diagnosis: Problems Active Smoker Smoking [...] Follow up: With: Address: When: Zeb Delarosa [address] [place] [phone] Business (1) 05/30/2023 3:15 PM Type Location Start [facility] Cardiology Follow Up (FT) [facility] [place] 05/30/2023 3:00 PM 05/30/2023 3:15 PM Confirmed Cardiology Follow Up (FT) [facility] [place] 10/31/2023 1:00 PM 10/31/2023 1:15 PM Confirmed Patient Education Information: CV - Cardiovascular Discharge Instructions (CUSTOM) [facility] Inpatient Patient Summaryon 05-08-2023 Inpatient Patient Summary [address] [address] Patient Discharge Instructions PERSON INFORMATION [...] Follow up: With: Address: When: Zeb Delarosa [address] [place] [phone] Business (1) 05/30/2023 3:15 PM In the event that this physician does not participate in your insurance network, please consult with your insurance company to find a nearby participating provider. Type Location Start [facility] Cardiology Follow Up (FT) [facility] [place] 05/30/2023 3:00 PM 05/30/2023 3:15 PM Confirmed Cardiology Follow Up (FT) [facility] [place] 10/31/2023 1:00 PM 10/31/2023 1:15 PM Confirmed [...] Information: Comment: PATIENT EDUCATION INFORMATION Instructions: [place], [place] CARDIOVASCULAR DISCHARGE INSTRUCTIONS Diet: ? Resume [...] Soreness an (more content not included)... Normal [facility] Patient Education - Texton 0 05-08-2023 Patient Education - Text [place], [place] CARDIOVASCULAR DISCHARGE INSTRUCTIONS Diet: ? Resume [...] [facility] at [phone], ext. [phone]. ? In the event you are unable to reach your physician, please call [facility] at [phone] and the clasp machine operator will assist you. Seek Immediate Medical Care for: ? Bleeding: Apply continuous pressure to the site and Call 911. ? Should the arm or leg become cold, numb, blue or white call your physician immediately. ? Signs of infection are redness, warmth, swelling, increased tenderness, colored drainage, fever or chills ? Chest pain ? Normal [facility] 05-06-2023 Outside Labs [id number] 02 [id number]#1. 00TIFF Normal [facility] Physician Orderon 05-06-2023 Physician Order [id number] 02 [id number]#1. 00TIFF Normal [facility] Insurance Correspondenceon 0 05-05-2023 Insurance Correspondence [id number]#1. 00TIFF Normal [facility] Heart and Vascular Office/Cl inic Noteon [...] to start him on Eliquis as his CJD7FG6 score is higher. We will switch him [...] with voice recognition artificial intelligence software, specifically Box, Rosum and or Kavalia. Substitutions may have occurred due to the inherent limitations of voice recognition and artificial intelligence software. ATTESTATION: Documentation services were performed after patient or guardian consented to allow [employer] to record this visit. ESTEFANIA endoscopy support specialist and provider reviewed before signing. ESTEFANIA: [employer] Follow-up No qualifying data available Problem List/Past [...] 05/02/2023 Family History Heart disease: Father. Normal [facility] Comment on above: Result Comment: [...] Zeb Delarosa MD Transcribed by: brooke Technologist: ADG Technical Comments Rest Dose (mCi Tc99m Cardiolite): 10.4 Stress Dose (mCi Tc99M Cardiolite): 30.1 Normal [facility] MR cervical spine wo conon 0 04-17-2023 MR cervical spine wo con [facility] Main [place] [address] [place], [place] [id number] MRI Report Signed Patient: Juan Carlos Noguera MR#: [id number] : 1970 Acct:[id number] Age/Sex: 52 / M ADM Date: 04/17/23 Loc: MR Room: Type: [facility] Attending Dr: Jennifer Avery RN Copies to: [...] Robe Fox M.D.04/17/2023 2:28 PM Dictation Location: [place] [address] Transcribed By: [facility] 04/17/23 142 Dictated By: Robe Fox II, MD 04/17/231424 Signed By: 04/17/231427 Normal [facility] MR head/brain wo/w conon MR head/brain wo/w con [facility] Main [place] [address] [place] [address] MRI Report Signed Patient: Juan Carlos Noguera MR#: [id number] : 1970 Acct:[id number] Age/Sex: 52 / M ADM Date: 04/17/23 Loc: Room: Type: [facility] Attending Dr: Jennifer Avery RN Copies to: [...] Robe Fox M.D.04/17/2023 2:35 PM Dictation Location: [place] [address] Transcribed By: KATRINA 04/17/23 1435 Dictated By: Robe Fox II, MD 04/17/23 1429 Signed By: 04/17/23 1435 Normal [facility] Consent for Treatmenton 03-25 Consent for Treatment [id number] [id number]#1.0 0TIFF Normal [facility] Heart and Vascular Office/Cl inic Noteon [...] These symptoms occurred during strenuous work at [employer], involving fast-paced tasks and a sudden physical exertion by a colleague. Despite a brief improvement in a different role, his symptoms worsened when the workload intensified. He sought medical attention after persistent left arm numbness and tingling, with a dismissive response that he did not have a heart attack or excessive perspiration. He experienced a workplace fall at the parking lot in [place], resulting in a ruptured spleen and a [...] 911, and they sent him straight to [facility], where they found a ruptured spleen. He [...] day. Follow up in 6 weeks in [place]. ATTESTATION: Portions of this record may have been created with voice recognition artificial intelligence software, specifically Box, Rosum and or Kavalia. Substitutions may have occurred with voice recognition and artificial intelligence software. Documentation services were performed after patient or guardian consented to allow [employer] to record this visit. ESTEFANIA endoscopy support specialist and provider reviewed before signing. ESTEFANIA: Laurie Kaur Follow-up No qualifying data available Problem List/Past Medical History Ongoing No qualifying data Historical Anxiety Asthma Autoimmune disorder Hypertension Memory Issu (more content not included)... [facility] Comment on above: Result Comment: Elec tronically Signed By: Isaura RUBIO, Zeb Reza\.br\Date and Time Signed: 03/30/23 21:01 EST\.br\Electronically Co-Signed By: Laurie Kaur\.br\Date and Time Co-Signed: 03/20/23 17:31 EST Insurance Correspondenceon 0 03-28-2023 Insurance Correspondence [id number]#1.0 0TIFF [facility] Insurance Correspondence [id number]#1.0 0TIFF [facility] Electrocardiogram - 12 leado n 03-21-2023 Electrocardiogram - 12 lead [id number]#1. 00TIFF Normal [facility] Physician Orderon 03-21-2023 Physician Order [id number]#1. 00TIFF Normal [facility] MRI TIB/FIB Right w/wo Conto n 12-21-2021 MRI TIB/FIB Right w/wo Cont [place] [address] Diagnostic Imaging MRI Report Name: JUAN CARLOS NOGUERA Sr. Pt Type: DEP OUT MR #: [id number] Room & Bed: Date of : 1970 Date of Service: 12/20/21 Age: 51 Ordering Doctor: Marie Mckenzie CNP Sex: Male Family Doctor: Marie Mckenzie CNP Order #: [id number] Dictating Doctor: Juan Carlos Ozuna Admit Date: [...] are not the intended recipient, please contact [facility] at [phone] and destroy all copies of the original. Normal [facility] CBC W Auto Differential pane l (Bld)on 12-18-2021 BASOPHIL ABSOLUTE COUNT 0.07 x10*3/uL Normal 0.0-0.1 [facility] Comment on above: Performed By: #### 5 7021-8, 61876-1, 93324-5 #### [facility] [address] Basophils/100 WBC (Bld) 0.3 % Normal 0.0-1.1 [facility] Comment on above: Performed By: #### 5 7021-8, 04392-1, 02516-9 #### [facility] [address] [address] [facility] EOS ABSOLUTE COUNT 0.18 x10*3/uL Normal 0.0-0.5 [facility] Comment on above: Performed By: #### 5 7021-8, 21810-7, 06018-0 #### [facility] [address] [address] [facility] Eosinophils/100 WBC (Bld) 0.8 % Normal 0.0-6.0 [facility] Comment on above: Performed By: #### 5 7021-8, 28499-2, 80944-0 #### [facility] [place] [id number] [facility] Hematocrit (Bld) [Volume fraction] 44.3 % Normal 35.0-49.0 [facility] Comment on above: Performed By: #### 5 70-8, 38347-7, 75096-9 #### [facility] [address] Hemoglobin (Bld) [Mass/Vol] 14.6 g/dL Normal 11.5-17.0 [facility] Comment on above: Performed By: #### 5 7021-8, 37431-8, 27532-1 #### [facility] [address] IMMATURE GRAN ABSOLUTE COUNT 0.12 x10*3/uL Normal 0.0-0.5 [facility] Comment on above: Performed By: #### 5 7021-8, 82701-2, 70575-3 #### [facility] [address] Immature granulocytes/100 WBC (Bld) 0.5 % Normal 0.0-2.99 [facility] Comment on above: Performed By: #### 5 7020-8, 40759-1, 06865-4 #### [facility] [address] LYMPHOCYTE ABSOLUTE COUNT 5.98 x10*3/uL High 0.5-3.2 [facility] Comment on above: Performed By: #### 5 70-8, 75325-9, 94578-8 #### [facility] [address] Lymphocytes/100 WBC (Bld) 26.1 % Normal 13.0-39.0 [facility] Comment on above: Performed By: #### 5 70-8, 31080-7, 81255-9 #### [facility] [address] MCH (RBC) [Entitic mass] 30.8 pg Normal 26.0-33.0 [facility] Comment on above: Performed By: #### 5 7021-8, 61662-1, 19144-0 #### [facility] [address] MCV (RBC) [Entitic vol] 93.5 fL Normal 81.0-98.0 [facility] Comment on above: Performed By: #### 5 7021-8, 95189-9, 29537-7 #### [facility] [address] MEAN CORPUSCULAR HGB CONC 33.0 g/dl Normal 31.0-35.0 [facility] Comment on above: Performed By: #### 5 7021-8, 44156-6, 50820-6 #### [facility] [address] MONOCYTE ABSOLUTE COUNT 2.31 x10*3/uL High 0.0-1.0 [facility] Comment on above: Performed By: #### 5 7021-8, 49130-7, 79266-8 #### [facility] [address] Monocytes/100 WBC (Bld) 10.1 % Normal 4.0-13.0 [facility] Comment on above: Performed By: #### 5 70-8, 68893-3, 52479-8 #### [facility] [address] NEUTROPHIL COUNT ABSOLUTE 14.27 x10*3/uL High 1.5-6.2 [facility] Comment on above: Performed By: #### 5 70-8, 65182-6, 97609-0 #### [facility] [address] Neutrophils/100 WBC (Bld) 62.2 % Normal 47.0-76.0 [facility] Comment on above: Performed By: #### 5 70-8, 19827-1, 17004-8 #### [facility] [place] [address] [facility] NUCLEATED RBC ABSOLUTE COUNT 0.00 x10*3/uL Normal [facility] Comment on above: Performed By: #### 5 7021-8, 87272-6, 67141-8 #### [facility] [address] Nucleated RBC/100 WBC (Bld) [Ratio] 0.0 % Normal [facility] Comment on above: Performed By: #### 5 7021-8, 18744-2, 17877-1 #### [facility] [address] [address] [facility] PLATELET COUNT 430 x10*3/uL High 150-400 [facility] Comment on above: Performed By: #### 5 7021-8, 40096-1, 36070-5 #### [facility] [address] [address] [facility] Platelet mean volume (Bld) [Entitic vol] 10.6 fL Normal 9.0-12.1 [facility] Comment on above: Performed By: #### 5 7021-8, 60734-3, 61146-2 #### [facility] [address] RED BLOOD COUNT 4.74 x10*6/uL Normal 3.8-6.0 [facility] Comment on above: Performed By: #### 5 7021-8, 36944-6, 25986-1 #### [facility] [address] RED CELL DISTRIBUTION WIDTH 46.0 fL Normal 36.7-49.4 [facility] Comment on above: Performed By: #### 5 7021-8, 16757-7, 15417-0 #### [facility] [address] WHITE BLOOD COUNT 22.93 X10*3/uL High 3.8-11.0 [facility] Comment on above: Performed By: #### 5 7021-8, 26987-3, 46616-5 #### [facility] [address] [address] [facility] Differential panel (Body fld )on 12-18-2021 BANDS 2 % High 0-1 [facility] Comment on above: Performed By: #### 5 7021-8, 25446-8, 28186-0 #### [facility] [address] [address] [facility] Basophils/100 WBC (Bld) 0 % Normal 0-1 [facility] Comment on above: Performed By: #### 5 7021-8, 12460-5, 89588-4 #### [facility] [address] [address] [place] Eosinophils/100 WBC (Bld) 1 % Normal 0-6 [facility] Comment on above: Performed By: #### 5 7021-8, 57161-3, 47747-8 #### [facility] [address] [address] [facility] Lymphocytes/100 WBC (Bld) 25 % Low 38-46 [facility] Comment on above: Performed By: #### 5 7021-8, 42223-4, 35165-7 #### [facility] [address] [address] [facility] Monocytes/100 WBC (Bld) 4 % Normal 2-10 [facility] Comment on above: Performed By: #### 5 7021-8, 27987-7, 38099-9 #### [facility] [address] [address] [facility] Neutrophils/100 WBC (Bld) 62 % Normal 47-76 [facility] Comment on above: Performed By: #### 5 7021-8, 54765-4, 36915-5 #### [facility] [address] [address] [facility] Variant lymphocytes/100 WBC (Bld) 6 % Normal [facility] Comment on above: Performed By: #### 5 7021-8, 23201-8, 16716-9 #### [facility] [address] [address] [facility] Pathologist review of result son 12-18-2021 Pathologist review Armando (Unsp spec) [Interp] SEE COMMENT Normal [facility] Comment on above: Result Comment: Lymp hocytosis noted, favor reactive. If persistent, further investigation with flow cytometric analysis of peripheral blood is suggested for lymphocyte phenotyping in order to exclude a lymphoproliferative neoplasm. Reviewed by Dr. Kumar Performed By: #### 5 7021-8, 27093-3, 38623-4 #### CLINICAL LABORATORY [address] [address] [facility] Urate [Mass/Vol]on 2 CNET-Uric Acid #URIC 6.7 MG/DL Normal 4.0-8.0 [facility] Comment on above: Result Comment: (NOT E) THERAPEUTIC TARGET FOR PATIENTS WITH GOUT: <6.0 TESTING PERFORMED BY: [employer] [address] [place] [id number], CLIA [id number] FERNANDO LOWEShelley Cervantes Performed By: #### 3 084-1 #### [facility] , Urate [Mass/volume] in Serum or Plasmaon 12-18-2021 Urate [Mass/Vol] Normal 3.8-7.1 [facility] Comment on above: Result Comment: SENT TO REFERENCE LAB DUE TO SUPPLY CHAIN ISSUES. ANOTHER TEST FOR SAME ANAYLTE WILL BE ORDERED AND RESULTED IN [facility]. Performed By: #### 5 7021-8, 75415-9, 84780-1 #### CLINICAL LABORATORY [address] AMB Office Visit Internal [place] don 12-12-2021 AMB Office Visit Internal Med [place] [address] Medical Records Department AMB Office Visit Internal Med Name: JUAN CARLOS NOGUERA Sr. Pt Type: DEP AMB MR #: [id number] Room AND Bed: Date of : 1970 Date of Service: 12/12/21 Age: 51 Ordering Doctor: Sex: Male Family Doctor: Marie Mckenzie CNP Order #: Dictating Doctor: Marie Mckenzie CNP Admit Date: Referring Doctor: Other Doctor: Additional Copies: Marie Mckenzie SAMPLE SELECTOR === Chief Complaint Chief Complaint: * Patient [...] Physician History Physician Specialist Physician: Oswaldo Bonilla [facility] Medical History Anxiety disorder History [...] 101 H (more content not included)... Normal [facility] Ambulatory Ankle Righton 12-04-2021 Ankle Right [place] [address] Diagnostic Imaging Radiology Report Name: JUAN CARLOS NOGUERA Sr. Pt Type: DEP OUT MR #: [id number] Room & Bed: Date of : 1970 Date of Service: 12/03/21 Age: 51 Ordering Doctor: Marie Mckenzie CNP Sex: Male Family Doctor: Marie Mckenzie CNP Order #: [id number] Dictating Doctor: Anthony Rangel MD Admit Date: [...] are not the intended recipient, please contact [facility] at [phone] and destroy all copies of the original. Normal [facility] Leg Lower Right 2 vwson 11-22 Leg Lower Right 2 vws [place] [address] Diagnostic Imaging Radiology Report Name: JUAN CARLOS NOGUERA Sr. Pt Type: DEP OUT MR #: [id number] Room & Bed: Date of : 1970 Date of Service: 12/03/21 Age: 51 Ordering Doctor: Marie Mckenzie CNP Sex: Male Family Doctor: Marie Mckenzie CNP Order #: [id number] Dictating Doctor: Anthony Rangel MD Admit Date: [...] are not the intended recipient, please contact [facility] at [phone] and destroy all copies of the original. Normal [facility] AMB Office Visit Internal Me don 12-03-2021 AMB Office Visit Internal Med [place] [id number] Medical Records Department AMB Office Visit Internal Med Name: JUAN CARLOS NOGUERA Sr. Pt Type: [facility] AMB MR #: [id number] Room AND Bed: Date of : 1970 Date of Service: 12/03/21 Age: 51 Ordering Doctor: Sex: Male Family Doctor: Marie Mckenzie CNP Order #: Dictating Doctor: Marie Mckenzie CNP Admit Date: Referring Doctor: Other Doctor: Additional Copies: Marie Mckenzie SAMPLE SELECTOR === Chief Complaint Chief Complaint: Patient here [...] Physician History Physician Specialist Physician: Oswaldo Bonilla [facility] Medical History Anxiety disorder History [...] (2) P (more content not included)... Normal [facility] Ambulatory AMB Office Visit Internal Me don 11-28-2021 AMB Office Visit Internal Med [place] [address] Medical Records Department AMB Office Visit Internal Med Name: JUAN CARLOS NOGUERA Sr. Pt Type: [facility] AMB MR #: [id number] Room AND Bed: Date of : 1970 Date of Service: 11/28/21 Age: 51 Ordering Doctor: Sex: Male Family Doctor: Marie Mckenzie CNP Order #: Dictating Doctor: Marie Mckenzie CNP Admit Date: Referring Doctor: Other Doctor: Additional Copies: Marie Mckenzie SAMPLE SELECTOR === Chief Complaint Chief Complaint: Patient is [...] Physician History Physician Specialist Physician: Oswaldo Bonilla [facility] Medical History Anxiety disorder History [...] BP 118/80 (more content not included)... Normal [facility] Ambulatory BASIC METABOLIC PANELon Anion gap [Moles/Vol] 11 mmol/L Normal 10-20 [facility] Comment on above: Performed By: #### M PB #### CLINICAL LABORATORY [address] Calcium [Mass/Vol] 8.8 mg/dL Normal 8.7-10.5 [facility] Comment on above: Performed By: #### M PB #### CLINICAL LABORATORY [address] [address] [facility] Chloride [Moles/Vol] 105 mmol/L Normal 99-111 [facility] Comment on above: Performed By: #### M PB #### CLINICAL LABORATORY [address] CO2 [Moles/Vol] 29 mmol/L Normal 21.0-32.0 [facility] Comment on above: Performed By: #### M PB #### CLINICAL LABORATORY [address] Creatinine [Mass/Vol] 0.8 mg/dL Normal 0.6-1.3 [facility] Comment on above: Performed By: #### M PB #### [place] [address] [place] GFR/1.73 sq M.predicted among non-blacks MDRD (S/P/Bld) [Vol rate/Area] 107 mL/min/{1.73_m2} Normal >59 [facility] Comment on above: Performed By: #### M PB #### CLINICAL LABORATORY [place] [id number] [facility] Glucose [Mass/Vol] 92 mg/dL Normal 70-100 [facility] Comment on above: Performed By: #### M PB #### [place] [address] [place] Potassium [Moles/Vol] 3.9 mmol/L Normal 3.5-5.0 [facility] Comment on above: Performed By: #### M PB #### CLINICAL LABORATORY [place] [address] [place] Sodium [Moles/Vol] 141 mmol/L Normal 137-147 [facility] Comment on above: Performed By: #### M PB #### CLINICAL LABORATORY [place] [address] [place] Urea nitrogen [Mass/Vol] 9 mg/dL Normal 7-22 [facility] Comment on above: Performed By: #### M PB #### CLIN[facility] LAB[facility]ATORY [address] Urea nitrogen/Creatinine [Mass ratio] 11.3 mg/mg Normal 6-25 [facility] Comment on above: Performed By: #### M PB #### CL[facility] LAB[facility]ATORY [address] CBC W Auto Differential pane l (Bld)on 11-23-2021 BASOPHIL ABSOLUTE COUNT 0.12 x10*3/uL High 0.0-0.1 [facility] Comment on above: Performed By: #### 5 7021-8, 43983-6, 23081-7 #### CL[facility]ORY [address] Basophils/100 WBC (Bld) 0.8 % Normal 0.0-1.1 [facility] Comment on above: Performed By: #### 5 7021-8, 19789-4, 56511-0 #### CL[facility] LAB[facility]ORY [address] EOS ABSOLUTE COUNT 0.50 x10*3/uL Normal 0.0-0.5 [facility] Comment on above: Performed By: #### 5 7021-8, 39122-2, 03106-4 #### CL[facility]ORY [address] Eosinophils/100 WBC (Bld) 3.2 % Normal 0.0-6.0 [facility] Comment on above: Performed By: #### 5 7021-8, 99517-6, 03702-0 #### CLINICAL LABORATORY [place] [address] [facility] Hematocrit (Bld) [Volume fraction] 37.8 % Normal 35.0-49.0 [facility] Comment on above: Performed By: #### 5 7021-8, 09239-6, 59018-0 #### CL[facility]ORY [address] Hemoglobin (Bld) [Mass/Vol] 12.9 g/dL Normal 11.5-17.0 [facility] Comment on above: Performed By: #### 5 7021-8, 89288-3, 56615-0 #### CL[facility]ORY [address] IMMATURE GRAN ABSOLUTE COUNT 0.04 x10*3/uL Normal 0.0-0.5 [facility] Comment on above: Performed By: #### 5 7021-8, 28401-3, 87942-0 #### CL[facility] LAB[facility]ORY [address] Immature granulocytes/100 WBC (Bld) 0.3 % Normal 0.0-2.99 [facility] Comment on above: Performed By: #### 5 7021-8, 38983-5, 09107-9 #### [facility] [address] LYMPHOCYTE ABSOLUTE COUNT 3.69 x10*3/uL High 0.5-3.2 [facility] Comment on above: Performed By: #### 5 70-8, 72835-6, 20974-1 #### CL[facility]ORY [address] Lymphocytes/100 WBC (Bld) 23.9 % Normal 13.0-39.0 [facility] Comment on above: Performed By: #### 5 7021-8, 73290-7, 23575-7 #### CL[facility] LAB[facility]ORY [address] MCH (RBC) [Entitic mass] 31.6 pg Normal 26.0-33.0 [facility] Comment on above: Performed By: #### 5 7021-8, 88952-2, 13074-0 #### CL[facility] LAB[facility]ATORY [address] MCV (RBC) [Entitic vol] 92.6 fL Normal 81.0-98.0 [facility] Comment on above: Performed By: #### 5 7021-8, 98439-8, 66240-7 #### CL[facility] LAB[facility]ATORY [address] MEAN CORPUSCULAR HGB CONC 34.1 g/dl Normal 31.0-35.0 [facility] Comment on above: Performed By: #### 5 7021-8, 31353-4, 94341-5 #### CLINICAL LABORATORY [address] [address] [facility] MONOCYTE ABSOLUTE COUNT 2.05 x10*3/uL High 0.0-1.0 [facility] Comment on above: Performed By: #### 5 7021-8, 80713-1, 13091-6 #### CLINICAL LABORATORY [address] [address] [facility] Monocytes/100 WBC (Bld) 13.3 % High 4.0-13.0 [facility] Comment on above: Performed By: #### 5 7021-8, 74836-2, 66675-2 #### CL[facility]ORY [address] NEUTROPHIL COUNT ABSOLUTE 9.01 x10*3/uL High 1.5-6.2 [facility] Comment on above: Performed By: #### 5 7021-8, 16729-2, 10523-5 #### CLINICAL LABORATORY [place] [address] [facility] Neutrophils/100 WBC (Bld) 58.5 % Normal 47.0-76.0 [facility] Comment on above: Performed By: #### 5 7021-8, 62815-9, 57701-5 #### CLIN[facility] LAB[facility]ATORY [address] [address] [facility] NUCLEATED RBC ABSOLUTE COUNT 0.00 x10*3/uL Normal [facility] Comment on above: Performed By: #### 5 7021-8, 65345-6, 19137-6 #### CLIN[facility] LABORATORY [address] [address] [facility] Nucleated RBC/100 WBC (Bld) [Ratio] 0.0 % Normal [facility] Comment on above: Performed By: #### 5 7021-8, 67327-1, 32835-3 #### CLIN[facility] LAB[facility]ATORY [address] [address] [facility] PLATELET COUNT 427 x10*3/uL High 150-400 [facility] Comment on above: Performed By: #### 5 7021-8, 55787-2, 17434-6 #### CLIN[facility] LAB[facility]ATORY [address] [address] Platelet mean volume (Bld) [Entitic vol] 9.0 fL Normal 9.0-12.1 [facility] Comment on above: Performed By: #### 5 7021-8, 16666-5, 94185-5 #### CL[facility] LAB[facility]ATORY [address] RED BLOOD COUNT 4.08 x10*6/uL Normal 3.8-6.0 [facility] Comment on above: Performed By: #### 5 7021-8, 55620-3, 17550-5 #### CL[facility] LAB[facility]ATORY [address] RED CELL DISTRIBUTION WIDTH 46.7 fL Normal 36.7-49.4 [facility] Comment on above: Performed By: #### 5 7021-8, 94984-1, 93086-4 #### CL[facility] LAB[facility]ATORY [address] WHITE BLOOD COUNT 15.41 X10*3/uL High 3.8-11.0 [facility] Comment on above: Performed By: #### 5 7021-8, 52879-1, 89659-1 #### CLIN[facility] LABORATORY [address] Differential panel (Body fld )on 11-23-2021 BANDS 0 % Normal 0-1 [facility] Comment on above: Performed By: #### 5 7021-8, 78629-5, 89437-5 #### CLINICAL LABORATORY [place] [address] [place] Basophils/100 WBC (Bld) 0 % Normal 0-1 [facility] Comment on above: Performed By: #### 5 7021-8, 75791-7, 78177-6 #### CLINICAL LABORATORY [place] [address] [facility] Eosinophils/100 WBC (Bld) 3 % Normal 0-6 [facility] Comment on above: Performed By: #### 5 7021-8, 29734-5, 80374-3 #### CLINICAL LABORATORY [address] [address] [place] Lymphocytes/100 WBC (Bld) 24 % Low 38-46 [facility] Comment on above: Performed By: #### 5 7021-8, 30707-6, 40862-1 #### CLINICAL LABORATORY [address] [address] [place] Monocytes/100 WBC (Bld) 7 % Normal 2-10 [facility] Comment on above: Performed By: #### 5 7021-8, 45707-7, 26523-4 #### CLINICAL LABORATORY [address] [address] [place] MYELOCYTE 1 % Normal [facility] Comment on above: Performed By: #### 5 7021-8, 08347-2, 81453-7 #### CLINICAL LABORATORY [address] [address] [facility] Neutrophils/100 WBC (Bld) 62 % Normal 47-76 [facility] Comment on above: Performed By: #### 5 7021-8, 02023-9, 73453-7 #### CLINICAL LABORATORY [address] [address] [place] Variant lymphocytes/100 WBC (Bld) 3 % Normal [facility] Comment on above: Performed By: #### 5 7021-8, 94609-7, 33879-0 #### CL[facility] LAB[facility]ATORY [address] Pathologist review of result son 11-23-2021 Pathologist review Armando (Unsp spec) [Interp] * Normal [facility] Comment on above: Result Comment: Agre e with reported results. Reviewed by [facility] Performed By: #### 5 7021-8, 44259-1, 44786-9 #### CLINICAL LABORATORY [address] Physician Documentationon Physician Documentation [place] [address] Medical Records Department ED Physician Documentation Name: JUAN CARLOS NOGUERA Sr. Pt Type: DEP ER MR #: [id number] Room AND Bed: Date of : 1970 [...] Blood Pres (more content not included)... Normal [facility] US Venous Duplex Uni Leg RTo n 11-23-2021 US Venous Duplex Uni Leg RT [place] [address] [place], [place] [address] Diagnostic Imaging Ultrasound Report Name: JUAN CARLOS NOGUERA Pt Type: EVELIA AMANDA MR #: [id number] Room & Bed: Date of : 1970 Date of Service: 11/23/21 Age: 51 Ordering Doctor: Florinda Guillory CNP Sex: Male Family Doctor: Marie Mckenzie SAMPLE SELECTOR Order #: [id number] Dictating Doctor: Abisai Mchugh MD Admit Date: [...] are not the intended recipient, please contact [facility] at [phone] and destroy all copies of the original. Normal [facility] AMB Office Visit Internal Me sheba 10-08-2021 AMB Office Visit Internal Med [place] [id number] Medical Records Department AMB Office Visit Internal Med Name: JUAN CARLOS NOGUERA Pt Type: DEP AMB MR #: [id number] Room AND Bed: Date of : 1970 [...] and colleagues, with an educational damian from [employer]. COVID-19 Patient Screening COVID-19 Screening Contact with COVID positive or high risk person(s): No COVID-19 Symptoms: No Physician History Physician Specialist Physician: Oswaldo Bonilla [facility] Medical History Anxiety disorder History [...] concentrating, Denie (more content not included)... Normal [facility] Ambulatory AMB Office Visit Internal [place] 09-10-2021 AMB Office Visit Internal Med [place] [address] Medical Records Department AMB Office Visit Internal Med Name: JUAN CARLOS NOGUERA Pt Type: DEP AMB MR #: [id number] Room AND Bed: Date of : 1970 [...] associated with ADD. He also wonders about [place] [facility] program. Intake Intake Intake Have [...] and colleagues, with an educational damian from [employer]. COVID-19 Patient Screening COVID-19 Screening Contact with [...] Denies headache(s) (more content not included)... Normal [facility] Ambulatory AMB Office Visit Internal [place] don 06-11-2021 AMB Office Visit Internal Med [place] [address] Medical Records Department AMB Office Visit Internal Med Name: CHUCKIEJUAN CARLOS Tenisha Pt Type: DEP AMB MR #: [id number] Room AND Bed: Date of : 1970 [...] and colleagues, with an educational damian from [employer]. COVID-19 Patient Screening COVID-19 Screening Contact with COVID positive or high risk person(s): No COVID-19 Symptoms: No Physician History Physician Specialist Physician: Oswaldo Bonilla [facility] Medical History Anxiety disorder History [...] carbonated be (more content not included)... Normal [facility] Ambulatory AMB Office Visit Internal Me sheba 03-12-2021 AMB Office Visit Internal Med [place] [id number] Medical Records Department AMB Office Visit Internal Med Name: JUAN CARLOS NOGUERA Pt Type: DEP AMB MR #: [id number] Room AND Bed: Date of : 1970 [...] he is on vacation from work between [place] and . In case he had side [...] Denies eas (more content not included)... Normal [facility] Ambulatory AMB Office Visit Internal [place] don 02-12-2021 AMB Office Visit Internal Med [place] [address] Medical Records Department AMB Office Visit Internal Med Name: JUAN CARLOS NOGUERA Pt Type: DEP AMB MR #: [id number] Room AND Bed: Date of : 1970 [...] TM's normal (more content not included)... Normal [facility] Ambulatory BASIC METABOLIC PANELon 04-24 Anion gap [Moles/Vol] 10 mmol/L Normal 5-[address] [facility] Comment on above: Performed By: #### L AB119 #### [place] [address] BUN/CREAT RATIO 12 (CALC) Normal 7.0-25.0 [facility] Comment on above: Performed By: #### L AB119 #### [place] [address] Calcium [Mass/Vol] 8.0 mg/dL Low 8.5-10.5 [facility] Comment on above: Performed By: #### L AB119 #### [place] [address] Chloride [Moles/Vol] 105 mmol/L Normal 96-110 [facility] Comment on above: Performed By: #### L AB119 #### [place] [address] CO2 [Moles/Vol] 21 mmol/L Normal 19-32 [facility] Comment on above: Performed By: #### L AB119 #### [place] [address] Creatinine [Mass/Vol] 0.9 mg/dL Normal 0.5-1.[address] [facility] Comment on above: Performed By: #### L AB119 #### [place] [address] ESTIMATED GFR 99 ML/MIN/1.73M2 Normal [facility] Comment on above: Result Comment: IF THE PATIENT IS , PLEASE MULTIPLY THIS BY 1.159. THIS RESULT HAS BEEN CALCULATED ASSUMING THE PATIENT IS NON- Performed By: #### L AB119 #### [place] [address] Glucose [Mass/Vol] 126 mg/dL High 70-99 [facility] Comment on above: Performed By: #### L AB119 #### [place] [address] Potassium [Moles/Vol] 4.5 mmol/L Normal 3.4-5.[address] [facility] Comment on above: Performed By: #### L AB119 #### [place] [address] Sodium [Moles/Vol] 136 mmol/L Normal 135-148 [facility] Comment on above: Performed By: #### L AB119 #### [place] [address] Urea nitrogen [Mass/Vol] 11 mg/dL Normal 3-29 [facility] Comment on above: Performed By: #### L AB119 #### [place] [address] COMPLETE BLOOD COUNTon 05-09 Erythrocyte distribution width (RBC) [Ratio] 14.3 % Normal 9.0-15.0 [facility] Comment on above: Performed By: #### L AB119 #### [place] [address] Hematocrit (Bld) [Volume fraction] 34.8 % Low 41.0-50.0 [facility] Comment on above: Performed By: #### L AB119 #### [place] [address] Hemoglobin (Bld) [Mass/Vol] 11.9 g/dL Low 13.8-17.2 [facility] Comment on above: Performed By: #### L AB119 #### [place] [address] MCH (RBC) [Entitic mass] 30.4 pg Normal 27.0-33.0 [facility] Comment on above: Performed By: #### L AB119 #### [place] [address] MCHC (RBC) [Mass/Vol] 34.0 g/dL Normal 32.0-36.[address] [facility] Comment on above: Performed By: #### L AB119 #### [place] [address] MCV (RBC) [Entitic vol] 89.4 fL Normal 80.0-100.0 [facility] Comment on above: Performed By: #### L AB119 #### [place] [address] Platelets (Bld) [#/Vol] 168 10*3/uL Normal 130-400 [facility] Comment on above: Performed By: #### L AB119 #### [place] [address] RBC COUNT 3.90 M/MM3 Low 4.40-5.80 [facility] Comment on above: Performed By: #### L AB119 #### [place] [address] WBC (Bld) [#/Vol] 19.5 10*3/uL High 3.8-10.8 [facility] Comment on above: Performed By: #### L AB119 #### [address] DRUG SCREEN, URINEon 021 AMPHETAMINE, URINE Not detected Normal NONDT [facility] Comment on above: Performed By: #### L AB119 #### [place] [address] BARBITURATES, URINE Not detected Normal [facility] Comment on above: Performed By: #### L AB119 #### [address] BENZODIAZEPINE, URINE Positive Abnormal [facility] Comment on above: Performed By: #### L AB119 #### [place] [address] COCAINE, URINE Not detected Normal [facility] Comment on above: Performed By: #### L AB119 #### [place] [address] COMMENT, URINE DRUG SCREEN Normal [facility] Comment on above: Result Comment: The submitted [...] and/or metabolites are present. Test performed at [facility] [place], [place] Performed By: #### L AB119 #### [place] [address] OPIATES, URINE Not detected Normal [facility] Comment on above: Performed By: #### L AB119 #### [place] [address] THC Not detected Normal NONDT [facility] Comment on above: Performed By: #### L AB119 #### [place] [address] SARS COV 2 RNA, QL REAL TIME RT PCRon 05-09-2020 SARS-CoV-2 (COVID-19) RNA ARAVIND+probe Ql (Unsp spec) Not detected Normal NDET [facility] Comment on above: Result Comment: Refe rence Range = NOT DETECTED Performed By: #### L AB119 #### [place] [address] SARS-CoV-2 (COVID-19) RNA ARAVIND+probe Ql (Unsp spec) (NOTE) Normal [facility] Comment on above: Result Comment: The SARS CoV-2 RNA, Qualitative Real-Time RT-PCR test is a qualitative multi-target molecular diagnostic test that aids in the detection of COVID-19. This test has been authorized by the FDA under an Emergency Use Authorization (EUA) for use by authourized laboratories. Refer to www.cdc.gov for additional information about Coronavirus disease 2019. Performed By: #### L AB119 #### [place] [address] URINALYSISon 05-09-2020 Appearance (U) CLEAR Normal [facility] Comment on above: Performed By: #### L AB119 #### [place] [address] BACTERIA, URINE NONE SEEN Normal [facility] Comment on above: Performed By: #### L AB119 #### [place] [address] BILIRUBIN, URINE Negative Normal NEG [facility] Comment on above: Performed By: #### L AB119 #### [place] [address] BLOOD, URINE Negative Normal NEG [facility] Comment on above: Performed By: #### L AB119 #### [place] [address] Color (U) Normal [facility] Comment on above: Result Comment: YESARAH OW Reference Range: Yellow and Colorless Performed By: #### L AB119 #### [place] [address] Glucose Ql (U) Negative Normal NEG [facility] Comment on above: Performed By: #### L AB119 #### [place] [address] HYALINE CAST Normal U05 [facility] Comment on above: Result Comment: 0-5 REFERENCE RANGE: 0-5 HYALINE CASTS NONE SEEN FOR NON HYALINE CASTS Performed By: #### L AB119 #### [place] [address] KETONE, URINE Negative Normal NEG [facility] Comment on above: Performed By: #### L AB119 #### [place] [address] LEUKOCYTES, URINE Negative Normal NEG [facility] Comment on above: Performed By: #### L AB119 #### [place] [address] MUCUS, URINE PRESENT Normal [facility] Comment on above: Performed By: #### L AB119 #### [place] [address] NITRITES, URINE Negative Normal NEG [facility] Comment on above: Performed By: #### L AB119 #### [place] [address] pH (U) 6.0 [pH] Normal 4.5-8.0 [facility] Comment on above: Performed By: #### L AB119 #### [place] [address] Protein (U) [Mass/Vol] 10 mg/dL Abnormal NEG [facility] Comment on above: Performed By: #### L AB119 #### [place] [address] RBC, URINE 6-10 Abnormal U02 [facility] Comment on above: Performed By: #### L AB119 #### [place] [address] RENAL EPITHELIAL CELLS, URINE 0-5 Normal U05 [facility] Comment on above: Performed By: #### L AB119 #### [place] [address] SPECIFIC GRAVITY, URINE 1.040 High 1.005-1.030 [facility] Comment on above: Result Comment: Urin e specific gravity may be affected by X-ray dye, high glucose, high protein, and some chemotherapeutic drugs. Clinical correlation is recommended. Performed By: #### L AB119 #### [place] [address] SQUAMOUS EPITHEAL CELLS, URINE 0-5 Normal U05 [facility] [facility] Comment on above: Performed By: #### L [id number] #### [place] [address] UROBILINOGEN, URINE <2 Normal <2 [facility] Comment on above: Performed By: #### L [id number] #### [place] [address] WBC, URINE 0-5 Normal U05 [facility] Comment on above: Performed By: #### L [id number] #### [place] [address] ACTIVATED PARTIAL THROMBOPLA STIN TIMEon 05-08-2020 aPTT Coag (Bld) [Time] 26.0 s Normal 24.5-35.2 [facility] Comment on above: Performed By: #### L [id number] #### [place] [address] BASIC METABOLIC PANELon 04-24 Anion gap [Moles/Vol] 11 mmol/L Normal 5-[address] [facility] Comment on above: Performed By: #### L [id number] #### [place] [id number] BUN/CREAT RATIO 10 (CALC) Normal 7.0-25.0 [facility] Comment on above: Performed By: #### L [id number] #### [place] [address] Calcium [Mass/Vol] 7.4 mg/dL Low 8.5-10.5 [facility] Comment on above: Performed By: #### L [id number] #### [place] [address] Chloride [Moles/Vol] 103 mmol/L Normal 96-110 [facility] Comment on above: Performed By: #### L [id number] #### [place] [address] CO2 [Moles/Vol] 20 mmol/L Normal 19-32 [facility] Comment on above: Performed By: #### L [id number] #### [place] [address] Creatinine [Mass/Vol] 1.0 mg/dL Normal 0.5-1.[address] [facility] Comment on above: Performed By: #### L [id number] #### [place] [address] ESTIMATED GFR 87 ML/MIN/1.73M2 Normal [facility] Comment on above: Result Comment: IF THE PATIENT IS , PLEASE MULTIPLY THIS BY 1.159. THIS RESULT HAS BEEN CALCULATED ASSUMING THE PATIENT IS NON- Performed By: #### L [id number] #### [place] [address] Glucose [Mass/Vol] 206 mg/dL High 70-99 [facility] Comment on above: Performed By: #### L [id number] #### [place] [address] Potassium [Moles/Vol] 4.8 mmol/L Normal 3.4-5.[address] [facility] Comment on above: Result Comment: HEMO LYZED POTASSIUM RESULTS ARE ELEVATED BY SPECIMEN HEMOLYSIS Performed By: #### L [id number] #### [place] [address] Sodium [Moles/Vol] 134 mmol/L Low 135-148 [facility] Comment on above: Performed By: #### L [id number] #### [place] [address] Urea nitrogen [Mass/Vol] 10 mg/dL Normal 3-29 [facility] Comment on above: Performed By: #### L [id number] #### [place] [address] COMPLETE BLOOD COUNTon 05-08 Erythrocyte distribution width (RBC) [Ratio] 14.0 % Normal 9.0-15.0 [facility] Comment on above: Performed By: #### L [id number] #### [place] [address] Hematocrit (Bld) [Volume fraction] 40.4 % Low 41.0-50.0 [facility] Comment on above: Performed By: #### L [id number] #### [place] [address] Hemoglobin (Bld) [Mass/Vol] 13.7 g/dL Low 13.8-17.2 [facility] Comment on above: Performed By: #### L [id number] #### [place] [address] MCH (RBC) [Entitic mass] 30.4 pg Normal 27.0-33.0 [facility] Comment on above: Performed By: #### L [id number] #### [place] [address] MCHC (RBC) [Mass/Vol] 33.9 g/dL Normal 32.0-36.[address] [facility] Comment on above: Performed By: #### L [id number] #### [place] [address] MCV (RBC) [Entitic vol] 89.9 fL Normal 80.0-100.0 [facility] Comment on above: Performed By: #### L [id number] #### [place] [address] Platelets (Bld) [#/Vol] 164 10*3/uL Normal 130-400 [facility] Comment on above: Performed By: #### L [id number] #### [place] [address] RBC COUNT 4.49 M/MM3 Normal 4.40-5.80 [facility] Comment on above: Performed By: #### L [id number] #### [place] [address] WBC (Bld) [#/Vol] 16.8 10*3/uL High 3.8-10.8 [facility] Comment on above: Performed By: #### L [id number] #### [place] [address] COMPLETE BLOOD COUNT WITH DI FFERENTIALon 05-08-2020 ABSOLUTE BASOPHIL 0.1 K/MM3 Normal 0.0-0.3 [facility] Comment on above: Performed By: #### L [id number] #### [place] [address] ABSOLUTE SEGMENTED NEUTROPHIL 13.5 K/MM3 High 1.5-7.8 [facility] Comment on above: Performed By: #### L AB119 #### [place] [address] Basophils/100 WBC (Bld) 0.3 % Normal 0.0-2.0 [facility] Comment on above: Performed By: #### L AB119 #### [place] [address] Eosinophils (Bld) [#/Vol] 0.0 10*3/uL Normal 0.0-0.6 [facility] Comment on above: Performed By: #### L [id number] #### [place] [address] Eosinophils/100 WBC (Bld) 0.1 % Normal 0.0-7.0 [facility] Comment on above: Performed By: #### L [id number] #### [place] [address] Erythrocyte distribution width (RBC) [Ratio] 13.8 % Normal 9.0-15.0 [facility] Comment on above: Performed By: #### L [id number] #### [place] [address] Hematocrit (Bld) [Volume fraction] 39.7 % Low 41.0-50.0 [facility] Comment on above: Performed By: #### L [id number] #### [place] [address] Hemoglobin (Bld) [Mass/Vol] 13.2 g/dL Low 13.8-17.2 [facility] Comment on above: Performed By: #### L [id number] #### [place] [address] Lymphocytes (Bld) [#/Vol] 1.0 10*3/uL Normal 0.9-4.1 [facility] Comment on above: Performed By: #### L [id number] #### [place] [address] Lymphocytes/100 WBC (Bld) 6.4 % Low 18.0-47.0 [facility] Comment on above: Performed By: #### L [id number] #### [place] [address] MCH (RBC) [Entitic mass] 30.4 pg Normal 27.0-33.0 [facility] Comment on above: Performed By: #### L AB119 #### [place] [address] MCHC (RBC) [Mass/Vol] 33.2 g/dL Normal 32.0-36.[address] [facility] Comment on above: Performed By: #### L [id number] #### [place] [address] MCV (RBC) [Entitic vol] 91.6 fL Normal 80.0-100.0 [facility] Comment on above: Performed By: #### L [id number] #### [place] [address] Monocytes (Bld) [#/Vol] 1.3 10*3/uL High 0.2-1.1 [facility] Comment on above: Performed By: #### L [id number] #### [place] [address] Monocytes/100 WBC (Bld) 8.1 % Normal 0-14.0 [facility] Comment on above: Performed By: #### L [id number] #### [place] [address] Platelets (Bld) [#/Vol] 187 10*3/uL Normal 130-400 [facility] Comment on above: Performed By: #### L [id number] #### [place] [address] RBC COUNT 4.34 M/MM3 Low 4.40-5.80 [facility] Comment on above: Performed By: #### L [id number] #### [place] [address] Segmented neutrophils/100 WBC (Bld) 85.1 % High 40.0-75.0 [facility] Comment on above: Performed By: #### L [id number] #### [place] [address] WBC (Bld) [#/Vol] 15.9 10*3/uL High 3.8-10.8 [facility] Comment on above: Performed By: #### L [id number] #### [place] [address] ETHANOLon 05-08-2020 Ethanol [Mass/Vol] Not detected Normal NONDT [facility] Comment on above: Performed By: #### L [id number] #### [place] [address] HEMOGLOBIN AND HEMATOCRITon 05-08-2020 Hematocrit (Bld) [Volume fraction] 37.0 % Low 41.0-50.0 [facility] Comment on above: Performed By: #### L AB236 #### [place] [address] Hemoglobin (Bld) [Mass/Vol] 12.5 g/dL Low 13.8-17.2 [facility] Comment on above: Performed By: #### L AB236 #### [place] [address] LACTIC ACIDon 05-08-2020 Lactate [Moles/Vol] 4.0 mmol/L High 0.5-2.2 [facility] Comment on above: Result Comment: Per the request of [facility]'s [place] and approval by the [facility] Blue Line Operator and Medical Executive Committee, this critical value was not called to the caregiver. (NOTE) If ruling out sepsis: Result >2.0 meets criteria for severe sepsis, recommend repeat testing to rule out sepsis. Result >=4.0 meets criteria for septic shock. Performed By: #### L [id number] #### [place] [id number] PREPARE RED BLOOD CELLSon PREPARE RED BLOOD CELLS UNIT PRODUCT COD E: [id number] PREPARE RED BLOOD CELLS: RED BLOOD CELLS, CPD>AS1, LEUKOCYTES REDUCED UNIT ID: [id number] UNIT ABO: O UNIT RH: POSITIVE UNIT DISPENSE STATUS: Emergency Issue UNIT EXPIRATION DATE: UNIT BLOOD TYPE: 5100 BLOOD CODING SYS: ISBT 128 [facility] Comment on above: Performed By: #### L [id number] #### [place] [address] PREPARE RED BLOOD CELLS UNIT PRODUCT COD E: [id number] PREPARE RED BLOOD CELLS: RED BLOOD CELLS, CPD>AS1, LEUKOCYTES REDUCED UNIT ID: [id number] UNIT ABO: O UNIT RH: POSITIVE UNIT DISPENSE STATUS: Emergency Issue UNIT EXPIRATION DATE: UNIT BLOOD TYPE: 5100 BLOOD CODING SYS: ISBT 128 [facility] Comment on above: Performed By: #### L [id number] #### [place] [address] PREPARE RED BLOOD CELLS UNIT PRODUCT COD E: [id number] PREPARE RED BLOOD CELLS: RED BLOOD CELLS, CPD>AS1, LEUKOCYTES REDUCED UNIT ID: [id number] UNIT ABO: O UNIT RH: POSITIVE UNIT INTERPRETATION: Compatible UNIT DISPENSE STATUS: Presumed Transfused UNIT EXPIRATION DATE: UNIT BLOOD TYPE: 5100 BLOOD CODING SYS: ISBT 128 UNIT PRODUCT CODE: [id number] PREPARE RED BLOOD CELLS: RED BLOOD CELLS, CPD>AS1, LEUKOCYTES REDUCED UNIT ID: [id number] UNIT ABO: O UNIT RH: POSITIVE UNIT INTERPRETATION: Compatible UNIT DISPENSE STATUS: Presumed Transfused UNIT EXPIRATION DATE: UNIT BLOOD TYPE: 5100 BLOOD CODING SYS: ISBT 128 Normal [facility] Comment on above: Performed By: #### L [id number] #### [place] [address] PROTHROMBIN TIMEon INR Coag (PPP) [Relative time] 1.2 {INR} High 0.9-1.1 [facility] Comment on above: Result Comment: MODERATE-INTENSITY WARFARIN THERAPY: 2.0-3.0 HIGHER-INTENSITY WARFARIN THERAPY: 3.0-4.0 Performed By: #### L [id number] #### [place] [address] PT Coag (PPP) [Time] 15.3 s High 11.7-13.9 [facility] Comment on above: Performed By: #### L AB119 #### [place] [address] SURGICAL PATHOLOGYon 021 SURGICAL PATHOLOGY SURGICAL PATHOLOGY REPORT Path #: [id number] Patient : JUAN CARLOS NOGUERA [place] #: [id number] Date: 05/09/2020 Pre Op Diagnosis Splenic laceration [...] is an area of focal hemorrhage present. Manager [address] sections to include area of described defect and an area of focal hemorrhage are submitted in cassettes A through C . Note that the section with capsule still attached is submitted in cassette A . Technical work associated with this pathology investigation was performed by: Dinos Rule, [place], [place] [address]. [facility]/05/09/2020 Kat Aguilera Billing Fee Codes [phone] The CPT codes provided are based on AMA guidelines and are for informational purposes only. CPT coding is the sole responsibility of the billing republican. Please direct any questions regarding coding to the payer being billed. [facility] Comment on above: Performed By: #### L [id number] #### [place] [address] TYPE AND SCREENon 05-08-2020 TYPE AND SCREEN ABO GROUP: O RH TYPE: Positive INDIRECT ANTIGLOB: Negative SPECIMEN EXPIRATION DATE/TIME: [id number] [facility] Comment on above: Performed By: #### L [id number] #### [place] [address] VENOUS BLOOD GASon BASE EXCESS,VENOUS -7.3 MMOL/L [facility] Comment on above: Result Comment: BASE EXCESS NORMALS: -2 TO +3 Performed By: #### L [id number] #### [place] [address] HCO3 (Bld) [Moles/Vol] 21.4 mmol/L Low 24.0-28.0 [facility] Comment on above: Performed By: #### L AB416 #### [place] [address] O2 ADMINISTRATED UNKNOWN Normal [facility] Comment on above: Performed By: #### L AB416 #### [place] [address] Oxygen saturation in Blood 71.3 % High 40.0-70.0 [facility] Comment on above: Performed By: #### L [id number] #### [place] [address] PCO2, VENOUS 55.7 MM HG High 41.0-51.0 [facility] Comment on above: Performed By: #### L AB416 #### [place] [address] PH, VENOUS 7.19 Low 7.32-7.42 [facility] Comment on above: Performed By: #### L AB416 #### [place] [address] PO2, VENOUS 43.6 MM HG High 25.0-40.0 [facility] Comment on above: Performed By: #### L AB416 #### [place] [address] SURGICALon 04-30-2017 SURGICAL [facility] GENARO Tilley JUAN CARLOS [id number]. [address] [place] [address] PROC: 04/30/2017[facility] RECV: 04/30/2017730 [address] RPTD: 05/08/2017[place], [place] [address] LOC: OI ACCT: SEX: M [id number] AGE: 46 Y : 1970 PATHOLOGY REPORT [...] the underlyingbone. The resection line is unremarkable. Manager Highway sections aresubmitted after decalcification. ALP/DKR:jcsMicroscopic Examination:Microscopi c examination was performed.[id number] KAT MONTOYA D.O., F.C.A.P.[facility]/ [facility] Printed on: 05/08/2017750 [place], [place] [address]Dnudylhm print date: 05/08/2017 [facility] TYPE AND SCREEN CAPTUREon ABO CAPTURE O [facility] Comment on above: Performed By: #### C T+S ####[facility] [address] [place] [address] INDIRECT NEGAR CAPTURE Negative Normal [facility] Comment on above: Performed By: #### C T+S ####[facility] [address] [place] [address] RH CAPTURE (2 D CLONES) Positive Normal [facility] Comment on above: Performed By: #### C T+S ####[facility] [address] [place] [address] Progress Noteon 04-14-2017 HIM IP Note OR Potato Loader Normal [facility] Vital Signs Date Time Vital Sign Value Performing Clinician Nico moy 03-10-2024 12:39-0500 Body height 180.[address] 03-10-2024 12:39-0500 Body mass index (BMI) [Ratio] 30.5 kg/m2 [address] 03-10-2024 12:39-0500 Body temperature 97.3 [degF] [address] 03-10-2024 12:39-0500 Body weight 99.[address] 03-10-2024 12:39-0500 Diastolic blood pressure 76 mm[Hg] [address] 03-10-2024 12:39-0500 Heart rate 90 /min [address] 03-10-2024 12:39-0500 Respiratory rate 16 /min [address] 03-10-2024 12:39-0500 SaO2% (BldA) [Mass fraction] 99 % [address] 03-10-2024 12:39-0500 Systolic blood pressure 136 mm[Hg] [address] 03-02-2024 10:55-0500 Body height 180.3 cm Jennifer Avery ADULT EDUCATION MANAGER Work Phone: [facility] 03-02-2024 10:55-0500 Body mass index (BMI) [Ratio] 30.82 kg/m2 Jennifer Avery ADULT EDUCATION MANAGER Work Phone: [facility] 03-02-2024 10:55-0500 Body weight 100.25 kg Jennifer Avery ADULT EDUCATION MANAGER Work Phone: [facility] 03-02-2024 10:55-0500 Diastolic blood pressure 76 mm[Hg] Jennifer Avery ADULT EDUCATION MANAGER Work Phone: [facility] 03-02-2024 10:55-0500 Systolic blood pressure 122 mm[Hg] Jennifer Avery ADULT EDUCATION MANAGER Work Phone: [facility] 01-30-2024 14:38-0500 Diastolic blood pressure 78 mm[Hg] Tylor Kirnus [facility] 01-30-2024 14:38-0500 Heart rate 53 /min Tylor Kirnus [facility] 01-30-2024 14:38-0500 Respiratory rate 16 /min Tylor Kirnus [facility] 01-30-2024 14:38-0500 SaO2% (BldA) [Mass fraction] 94 % Tylor Kirnus [facility] 01-30-2024 14:38-0500 Systolic blood pressure 128 mm[Hg] Tylor Kirnus [facility] 01-06-2024 15:14-0400 Body mass index (BMI) [Ratio] 29.26 kg/m2 Jennifer Avery ADULT EDUCATION MANAGER Work Phone: [facility] 01-06-2024 15:14-0400 Body weight 95.17 kg Jennifer Avery ADULT EDUCATION MANAGER Work Phone: [facility] 01-06-2024 15:14-0400 Diastolic blood pressure 74 mm[Hg] Jennifer Avery ADULT EDUCATION MANAGER Work Phone: [facility] 01-06-2024 15:14-0400 Systolic blood pressure 128 mm[Hg] Jennifer Avery ADULT EDUCATION MANAGER Work Phone: [facility] 12-30-2023 14:38-0400 Blood Pressure Location Tylor Marnus [facility] 12-30-2023 14:38-0400 Diastolic blood pressure 84 mm[Hg] Tylor Kirnus [facility] 12-30-2023 14:38-0400 Heart rate 91 /min Tylor Kirnus [facility] 12-30-2023 14:38-0400 Respiratory rate 16 /min Tylor Marnus [facility] 12-30-2023 14:38-0400 SaO2% (BldA) [Mass fraction] 99 % Tylor Marnus [facility] 12-30-2023 14:38-0400 Systolic blood pressure 136 mm[Hg] Tylor Marnus [facility] 12-26-2023 07:38-0400 Body height 188 cm Cheyenne Horn MD Work Phone: [facility] 12-26-2023 07:38-0400 Body mass index (BMI) [Ratio] 26.83 kg/m2 Cheyenne Horn MD Work Phone: [facility] 12-26-2023 07:38-0400 Body weight 94.8 kg Cheyenne Horn MD Work Phone: [facility] 12-26-2023 07:38-0400 Diastolic blood pressure 62 mm[Hg] Cheyenne Horn MD Work Phone: [facility] 12-26-2023 07:38-0400 Heart rate 89 /min Cheyenne Horn MD Work Phone: [facility] 12-26-2023 07:38-0400 Systolic blood pressure 108 mm[Hg] Cheyenne Horn MD Work Phone: [facility] 12-24-2023 13:17-0400 Body height 187.96 cm MD Moreno Barrera Work Phone: [facility] 12-24-2023 13:17-0400 Body mass index (BMI) [Ratio] 26.3 kg/m2 MD Moreno Barrera Work Phone: [facility] 12-24-2023 13:17-0400 Body temperature 98.2 [degF] MD Moreno Barrera Work Phone: [facility] 12-24-2023 13:17-0400 Body weight 92.98 kg MD Moreno Barrera Work Phone: [facility] 12-24-2023 13:17-0400 Diastolic blood pressure 66 mm[Hg] MD Moreno Barrera Work Phone: [facility] 12-24-2023 13:17-0400 Heart rate 51 /min MD Moreno Barrera Work Phone: [facility] 12-24-2023 13:17-0400 Respiratory rate 18 /min MD Moreno Barrera Work Phone: [facility] 12-24-2023 13:17-0400 SaO2% (BldA) [Mass fraction] 98 % MD Moreno Barrera Work Phone: [facility] 12-24-2023 13:17-0400 Systolic blood pressure 107 mm[Hg] MD Moreno Barrera Work Phone: [facility] 12-04-2023 09:05-0400 Body height 180.3 cm Jennifer Avery ADULT EDUCATION MANAGER Work Phone: [facility] 12-04-2023 09:05-0400 Body mass index (BMI) [Ratio] 29.32 kg/m2 Jennifer Avery ADULT EDUCATION MANAGER Work Phone: [facility] 12-04-2023 09:05-0400 Body weight 95.35 kg Jennifre Avery ADULT EDUCATION MANAGER Work Phone: [facility] 12-04-2023 09:05-0400 Diastolic blood pressure 66 mm[Hg] Jennifer Avery ADULT EDUCATION MANAGER Work Phone: [facility] 12-04-2023 09:05-0400 Systolic blood pressure 116 mm[Hg] Jennifer Avery ADULT EDUCATION MANAGER Work Phone: [facility] 11-28-2023 11:43-0400 Diastolic blood pressure 68 mm[Hg] Tylor Kirnus [facility] 11-28-2023 11:43-0400 Heart rate 102 /min Tylor Kirnus [facility] 11-28-2023 11:43-0400 Respiratory rate 16 /min Tylor Kirnus [facility] 11-28-2023 11:43-0400 SaO2% (BldA) [Mass fraction] 98 % Tylor Kirnus [facility] 11-28-2023 11:43-0400 Systolic blood pressure 118 mm[Hg] Tylor Kirnus [facility] 11-12-2023 07:30-0400 Body temperature 97.8 [degF] MD Moreno Barrera Work Phone: [facility] 11-12-2023 07:30-0400 Diastolic blood pressure 76 mm[Hg] MD Moreno Barrera Work Phone: [facility] 11-12-2023 07:30-0400 Heart rate 65 /min MD Moreno Barrera Work Phone: [facility] 11-12-2023 07:30-0400 Respiratory rate 16 /min MD Moreno Barrera Work Phone: [facility] 11-12-2023 07:30-0400 SaO2% (BldA) [Mass fraction] 99 % MD Moreno Barrera Work Phone: [facility] 11-12-2023 07:30-0400 Systolic blood pressure 108 mm[Hg] MD Moreno Barrera Work Phone: [facility] 11-11-2023 13:51-0400 Body height 187.96 cm MD Moreno Barrera Work Phone: [facility] 11-10-2023 09:00-0400 Body weight 90.9 kg MD Moreno Barrera Work Phone: [facility] 11-06-2023 14:48-0400 Body temperature 98.2 [degF] MD Moreno Barrera Work Phone: [facility] 11-06-2023 14:48-0400 Diastolic blood pressure 88 mm[Hg] MD Moreno Barrera Work Phone: [facility] 11-06-2023 14:48-0400 Heart rate 83 /min MD Moreno Barrera Work Phone: [facility] 11-06-2023 14:48-0400 Respiratory rate 18 /min MD Moreno Barrera Work Phone: [facility] 11-06-2023 14:48-0400 SaO2% (BldA) [Mass fraction] 98 % MD Moreno Barrera Work Phone: [facility] 11-06-2023 14:48-0400 Systolic blood pressure 116 mm[Hg] MD Moreno Barrera Work Phone: [facility] 11-06-2023 11:23-0400 Body height 187.96 cm MD Moreno Barrera Work Phone: [facility] 11-06-2023 11:23-0400 Body weight 94.3 kg MD Moreno Barrera Work Phone: [facility] 10-07-2023 14:40-0400 Diastolic blood pressure 80 mm[Hg] Tylor Kirnus [facility] 10-07-2023 14:40-0400 Heart rate 99 /min Tylor Kirnus [facility] 10-07-2023 14:40-0400 Respiratory rate 16 /min Tylor Kirnus [facility] 10-07-2023 14:40-0400 SaO2% (BldA) [Mass fraction] 96 % Tylor Kirnus [facility] 10-07-2023 14:40-0400 Systolic blood pressure 128 mm[Hg] Tylor Kirnus [facility] 08-11-2023 14:53-0400 Diastolic blood pressure 82 mm[Hg] Tylor Kirnus [facility] 08-11-2023 14:53-0400 Heart rate 101 /min Tylor Kirnus [facility] 08-11-2023 14:53-0400 SaO2% (BldA) [Mass fraction] 96 % Tylor Kirnus [facility] 08-11-2023 14:53-0400 Systolic blood pressure 136 mm[Hg] Tylor Kirnus [facility] 07-31-2023 08:08-0400 Diastolic blood pressure 71 mm[Hg] Tylor Kirnus [facility] 07-31-2023 08:08-0400 Systolic blood pressure 100 mm[Hg] Tylor Kirnus [facility] 07-31-2023 08:05-0400 Heart rate 133 /min Tylor Kirnus [facility] 07-31-2023 08:05-0400 Respiratory rate 15 /min Tylor Kirnus [facility] 07-31-2023 08:05-0400 SaO2% (BldA) [Mass fraction] 99 % Tylor Kirnus [facility] 07-31-2023 08:04-0400 Diastolic blood pressure 65 mm[Hg] Tylor Kirnus [facility] 07-31-2023 08:04-0400 Systolic blood pressure 105 mm[Hg] Tylor Kirnus [facility] 07-31-2023 08:00-0400 Diastolic blood pressure 95 mm[Hg] Tylor Kirnus [facility] 07-31-2023 08:00-0400 Heart rate 101 /min Tylor Kirnus [facility] 07-31-2023 08:00-0400 Respiratory rate 14 /min Tylor Kirnus [facility] 07-31-2023 08:00-0400 Systolic blood pressure 118 mm[Hg] Tylor Kirnus [facility] 07-31-2023 07:55-0400 Heart rate 99 /min Tylor Kirnus [facility] 07-31-2023 07:55-0400 Respiratory rate 15 /min Tylor Kirnus [facility] 07-31-2023 07:55-0400 SaO2% (BldA) [Mass fraction] 99 % Tylor Kirnus [facility] 07-31-2023 06:46-0400 Heart rate 99 /min Tylor Kirnus [facility] 07-25-2023 10:54-0400 Diastolic blood pressure 82 mm[Hg] Tylor Kirnus [facility] 07-25-2023 10:54-0400 Heart rate 115 /min Tylor Kirnus [facility] 07-25-2023 10:54-0400 SaO2% (BldA) [Mass fraction] 100 % Tylor Kirnus [facility] 07-25-2023 10:54-0400 Systolic blood pressure 122 mm[Hg] Tylor Knight [facility] 05-30-2023 14:55-0500 Diastolic blood pressure 90 mm[Hg] Zeb Christofferson [facility] 05-30-2023 14:55-0500 Heart rate 52 /min Zeb Christofferson [facility] 05-30-2023 14:55-0500 SaO2% (BldA) [Mass fraction] 91 % Zeb Christofferson [facility] 05-30-2023 14:55-0500 Systolic blood pressure 124 mm[Hg] Zeb Christofferson [facility] 05-02-2023 13:06-0500 Diastolic blood pressure 82 mm[Hg] Zeb Christofferson [facility] 05-02-2023 13:06-0500 Heart rate 54 /min Zeb Christofferson [facility] 05-02-2023 13:06-0500 SaO2% (BldA) [Mass fraction] 96 % Zeb Christofferson [facility] 05-02-2023 13:06-0500 Systolic blood pressure 138 mm[Hg] Zeb Christofferson [facility] 04-17-2023 07:36-0500 Body height 187.96 cm MD Moreno Barrera Work Phone: [facility] 04-17-2023 07:36-0500 Body weight 99.79 kg MD Moreno Barrera Work Phone: [facility] 03-20-2023 13:47-0500 Diastolic blood pressure 80 mm[Hg] Zeb Christofferson [facility] 03-20-2023 13:47-0500 Heart rate 116 /min Zeb Delarosa [facility] 03-20-2023 13:47-0500 SaO2% (BldA) [Mass fraction] 96 % Zeb Delarosa [facility] 03-20-2023 13:47-0500 Systolic blood pressure 132 mm[Hg] Zeb Delarosa [facility] 12-05-2022 11:30-0400 Body height 187.96 cm Moreno Barrera Other [facility] [employer] Other 12-05-2022 11:30-0400 Body mass index (BMI) [Ratio] 25.75 kg/m2 Moreno Barrera Other [employer] Other 12-05-2022 11:30-0400 Body weight 90.99 kg Moreno Barrera Other [employer] Other 12-05-2022 11:30-0400 Diastolic blood pressure 88 mm[Hg] Moreno Barrera Other [employer] Other 12-05-2022 11:30-0400 Respiratory rate 20 /min Moreno Barrera Other [employer] Other 12-05-2022 11:30-0400 Systolic blood pressure 134 mm[Hg] Moreno Barrera Other [employer] Other 09-30-2022 13:50-0400 Body height 187.96 cm Kat Boss Other [employer] Other 09-30-2022 13:50-0400 Body mass index (BMI) [Ratio] 25.83 kg/m2 Kat Boss Other [employer] Other 09-30-2022 13:50-0400 Body temperature 97.7 [degF] Kat Boss Other [employer] Other 09-30-2022 13:50-0400 Body weight 91.26 kg Kat Gera Other [employer] Other 09-30-2022 13:50-0400 Diastolic blood pressure 76 mm[Hg] Kat Boss Other [employer] Other 09-30-2022 13:50-0400 Respiratory rate 18 /min Kat Boss Other [employer] Other 09-30-2022 13:50-0400 SaO2% (BldA) [Mass fraction] 98 % Kat Boss Other [employer] Other 09-30-2022 13:50-0400 Systolic blood pressure 132 mm[Hg] Kat Boss Other [employer] Other 06-11-2021 08:25-0400 Body height 187.96 cm M.D. Vtap Work Phone: [facility] Work Phone: 06-11-2021 08:25-0400 Body mass index (BMI) [Ratio] 24.6 kg/m2 M.D. Vtap Work Phone: [facility] Work Phone: 06-11-2021 08:25-0400 Body temperature 96.1 [degF] M.D. Vtap Work Phone: [facility] Work Phone: 06-11-2021 08:25-0400 Body weight 87.09 kg M.D. Diana Peoples Work Phone: [facility] Work Phone: 06-11-2021 08:25-0400 Diastolic blood pressure 62 mm[Hg] M.D. Diana Peoples Work Phone: [facility] Work Phone: 06-11-2021 08:25-0400 Heart rate 74 /min M.D. Diana Peoples Work Phone: [facility] Work Phone: 06-11-2021 08:25-0400 SaO2% (BldA) [Mass fraction] 99 % M.D. Diana Peoples Work Phone: [facility] Work Phone: 06-11-2021 08:25-0400 Systolic blood pressure 122 mm[Hg] M.D. Diana Peoples Work Phone: [facility] Work Phone: 03-12-2021 07:57-0500 Body height 187.96 cm M.D. Diana Shelton Work Phone: [facility] Work Phone: 03-12-2021 07:57-0500 Body mass index (BMI) [Ratio] 25.2 kg/m2 M.D. Diana Peoples Work Phone: [facility] Work Phone: 03-12-2021 07:57-0500 Body temperature 96.3 [degF] M.D. Diana Shelton Work Phone: [facility] Work Phone: 03-12-2021 07:57-0500 Body weight 89.36 kg M.D. Diana Peoples Work Phone: [facility] Work Phone: 03-12-2021 07:57-0500 Diastolic blood pressure 72 mm[Hg] M.D. Diana Peoples Work Phone: [facility] Work Phone: 03-12-2021 07:57-0500 Heart rate 132 /min M.D. Diana Peoples Work Phone: [facility] Work Phone: 03-12-2021 07:57-0500 SaO2% (BldA) [Mass fraction] 97 % M.D. Diana Peoples Work Phone: [facility] Work Phone: 03-12-2021 07:57-0500 Systolic blood pressure 138 mm[Hg] M.D. Diana Peoples Work Phone: [facility] Work Phone: 02-12-2021 07:45-0500 Body height 187.96 cm M.D. Diana Peoples Work Phone: [facility] Work Phone: 02-12-2021 07:45-0500 Body mass index (BMI) [Ratio] 25.2 kg/m2 M.D. Diana Peoples Work Phone: [facility] Work Phone: 02-12-2021 07:45-0500 Body temperature 96.3 [degF] M.D. Diana Peoples Work Phone: [facility] Work Phone: 02-12-2021 07:45-0500 Body weight 89.36 kg M.D. Diana Peoples Work Phone: [facility] Work Phone: 02-12-2021 07:45-0500 Diastolic blood pressure 72 mm[Hg] M.D. Diana Peoples Work Phone: [facility] Work Phone: 02-12-2021 07:45-0500 Heart rate 76 /min M.D. Diana [facility] Work Phone: [facility] Work Phone: 02-12-2021 07:45-0500 SaO2% (BldA) [Mass fraction] 100 % M.D. Diana Forbesters Work Phone: [facility] Work Phone: 02-12-2021 07:45-0500 Systolic blood pressure 126 mm[Hg] M.D. Diana Forbesters Work Phone: [facility] Work Phone: Encounters Encounter Date Encounter Type Care Provider Facility Start: 03-10-2024 End: 03-10-2024 Subsequent hospital visit by physician Sonja Martínez Nonv1 Ecg Resource [facility] Start: 03-10-2024 End: 03-10-2024 ambulatory RACHAEL RIVERA [facility] Start: 03-10-2024 End: 03-10-2024 Subsequent hospital visit by physician Casillas Er X-Ray 1 [facility] Comment on above: Arrived Atrial fibrillation, unspecified type (Multi) Start: 03-10-2024 End: 03-10-[address] [facility] Start: 03-05-2024 End: 03-05-2024 Subsequent hospital visit by physician Sonja [address] [facility] Comment on above: Atrial fibrillation, unspecified type (Multi); Other fatigue; Shortness of breath on exertion Start: 03-05-2024 End: 03-05-2024 ambulatory CHEYENNE HORN [facility] Start: 03-04-2024 ambulatory Ronaldo Sahu acility:[facility] Start: 03-02-2024 End: 03-02-2024 Bamboo flowsheet Jennifer Avery ADULT EDUCATION MANAGER Work Phone: [facility] Start: 03-02-2024 End: 03-02-2024 Bamboo flowsheet Jennifer Avery ADULT EDUCATION MANAGER Work Phone: [facility] Start: 03-02-2024 End: 03-02-2024 Office outpatient visit 25 minutes Jennifer Avery ADULT EDUCATION MANAGER Work Phone: [facility] [address] Comment on above: Lumbar radiculopathy (Primary Dx); Weakness of both lower extremities; Cognitive impairment; Anxiety; Muscle stiffness; Blurry vision, bilateral Start: 03-02-2024 End: 03-02-2024 ambulatory JENNIFER AVERY Not Available Start: 01-30-2024 End: 01-30-2024 ambulatory Tylor Knight [place] Start: 01-30-2024 End: 01-30-2024 Patient encounter procedure Tylor Knight [facility] Start: 01-16-2024 End: 01-16-2024 Clinisync Result Encounter Jennifer Avery ADULT EDUCATION MANAGER Work Phone: [facility] Unsolicited Start: 01-16-2024 End: 01-16-2024 Clinisync Result Encounter Jennifer Avery ADULT EDUCATION MANAGER Work Phone: [facility] Unsolicited Start: 01-06-2024 End: 01-06-2024 Office outpatient visit 25 minutes Jennifer Avery ADULT EDUCATION MANAGER Work Phone: [facility] [address] Comment on above: Lumbar radiculopathy (Primary Dx); Weakness of both lower extremities; Cognitive impairment; Anxiety; Muscle stiffness; Blurry vision, bilateral Start: 01-06-2024 End: 01-06-2024 ambulatory JENNIFER AVERY Not Available Start: 01-06-2024 End: 01-06-2024 Bamboo flowsheet Jennifer Avery ADULT EDUCATION MANAGER Work Phone: [facility] Start: 01-06-2024 End: 01-06-2024 Bamboo flowsheet Jennifer Avery ADULT EDUCATION MANAGER Work Phone: [facility] [address] Start: 12-31-2023 ambulatory [facility] Start: 12-30-2023 End: 12-30-2023 ambulatory XXXX NONE [place] Start: 12-30-2023 End: 12-30-2023 Patient encounter procedure Tylorgarrison Knight [facility] Start: 12-26-2023 End: 12-26-2023 Office consultation new/estab patient 80 min Cheyenne Horn MD Work Phone: [facility] Comment on above: Atrial fibrillation, unspecified type (Multi) (Primary Dx); Other fatigue; Shortness of breath on exertion; Encounter to establish care with new doctor; Encounter for medication review and counseling; Encounter to discuss treatment options; BMI 26.0-26.9,adult; Current smoker Start: 12-26-2023 End: 12-26-2023 ambulatory CHEYENNE HORN [facility] Start: 12-24-2023 End: 12-24-2023 ambulatory MD Moreno Barrera Work Phone: [facility] Work Phone: Start: 12-24-2023 End: 12-24-2023 Patient encounter procedure MD Moreno Barrera Work Phone: [facility] Work Phone: Start: 12-19-2023 Registered Recurring MD Moreno Barrera Work Phone: [facility] Start: 12-04-2023 End: 12-04-2023 Bamboo flowsheet Jennifer Avery ADULT EDUCATION MANAGER Work Phone: [facility] [address] Start: 12-04-2023 End: 12-04-2023 Bamboo flowsheet Jennifer Avery ADULT EDUCATION MANAGER Work Phone: [facility] [address] Start: 12-04-2023 End: 12-04-2023 Office outpatient visit 25 minutes Jennifer Avery ADULT EDUCATION MANAGER Work Phone: [facility] [address] Comment on above: Lumbar radiculopathy (Primary Dx); Cognitive impairment; Anxiety; Muscle stiffness; Blurry vision, bilateral; Cervical radiculopathy; Carpal tunnel syndrome, bilateral Start: 12-04-2023 End: 12-04-2023 ambulatory JENNIFER AVERY Not Available Start: 11-28-2023 End: 11-28-2023 ambulatory XXXX NONE [place] Start: 11-28-2023 End: 11-28-2023 Patient encounter procedure Tylor Knight [facility] Start: 11-07-2023 Non-patient / Non-visit MD Marcelina Barrera Work Phone: [facility] Work Phone: Start: 11-06-2023 End: 11-12-2023 Evaluation and management of inpatient MD Moreno Barrera Work Phone: [facility] Work Phone: Start: 11-06-2023 Registered Recurring MD Moreno Barrera Work Phone: [facility] Start: 10-27-2023 Registered Recurring MD Moreno Barrera Work Phone: [facility] Start: 10-13-2023 End: 10-13-2023 ambulatory JENNIFER AVERY Not Available Start: 10-07-2023 End: 10-28-2023 Pre-admission assessment Tylor Knight [facility] Start: 10-07-2023 End: 10-07-2023 ambulatory XXXX NONE [place] Start: 10-07-2023 End: 10-07-2023 Patient encounter procedure Tylor Knight [facility] Start: 10-01-2023 End: 10-01-2023 ambulatory Chanel Gilbert Montalvo [place] Start: 10-01-2023 End: 10-01-2023 Patient encounter procedure Chanel SanjeevRaymond Montalvo [facility] Start: 08-11-2023 End: 08-11-2023 ambulatory XXXX NONE [place] Start: 08-11-2023 End: 08-11-2023 Patient encounter procedure Tylor Manuelgiselus [facility] Start: 08-11-2023 End: 08-11-2023 ambulatory JENNIFER AVERY Not Available Start: 07-31-2023 End: 07-31-2023 Admission to same day surgery center Tylor Tariq Margiselus [facility] Start: 07-31-2023 End: 07-31-2023 ambulatory Tylor Manuelgisel [place] Start: 07-25-2023 End: 07-25-2023 ambulatory XXXX NONE Facility[place] Start: 07-25-2023 End: 07-25-2023 Patient encounter procedure Tylor Manuelgisel [facility] Start: 07-15-2023 End: 07-15-2023 ambulatory LESVIA BUTLER Not Available Start: 07-14-2023 End: 07-14-2023 ambulatory ANGELA GARZA Not Available Start: 05-30-2023 End: 05-30-2023 ambulatory XXXX NONE [place] Start: 05-30-2023 End: 05-30-2023 Patient encounter procedure Zeb Delarosa [facility] Start: 05-08-2023 End: 05-08-2023 Admission to same day surgery center Zeb Delarosa [facility] Start: 05-08-2023 End: 05-08-2023 ambulatory Zeb Delarosa [place] Start: 05-02-2023 End: 05-02-2023 ambulatory XXXX NONE Facility[place] Start: 05-02-2023 End: 05-02-2023 Patient encounter procedure Zeb Delarosa [facility] Start: 04-17-2023 End: 04-17-2023 Patient encounter procedure MD Moreno Barrera Work Phone: [facility] [place] Work Phone: Start: 04-17-2023 End: 04-17-2023 ambulatory MD Moreno Barrera Work Phone: [facility] Work Phone: Start: 04-15-2023 End: 04-15-2023 ambulatory Zeb Delarosa Facility[place] Start: 04-15-2023 End: 04-15-2023 Patient encounter procedure Zeb Delarosa [facility] Start: 04-07-2023 End: 04-07-2023 ambulatory LESVIA Steven POCOS Not Available Start: 04-01-2023 ambulatory XXXX NONE Facility: [facility] Start: 03-20-2023 End: 03-20-2023 ambulatory JENNIFER AVERY [place] Start: 03-20-2023 End: 03-20-2023 Patient encounter procedure Zeb Delarosa [facility] Start: 12-27-2022 End: 12-27-2022 ambulatory Morneo Barrera Other [employer] Other Start: 12-27-2022 Telephone encounter Moreno Barrera [facility] Start: 12-10-2022 End: 12-10-2022 ambulatory Moreno Barrera Other [employer] Other Start: 12-10-2022 Telephone encounter Moreno Barrera [facility] Start: 12-05-2022 End: 12-05-2022 ambulatory Moreno Connie Other [employer] Other Start: 12-05-2022 Office outpatient ne w 45 minutes Moreno Barrera [facility] Start: 09-30-2022 End: 09-30-2022 ambulatory Kat Boss Other [employer] Other Start: 09-30-2022 Office outpatient ne w 20 minutes Kat Boss [facility] Start: 12-20-2021 End: 12-20-2021 ambulatory Marie K. Mckenzie Facility:[facility] Start: 12-18-2021 End: 12-18-2021 ambulatory Marie K. Mckenzie Facility:[facility] Start: 12-12-2021 End: 12-12-2021 ambulatory Marie K. Mckenzie Facility:[facility] Start: 12-03-2021 End: 12-03-2021 ambulatory Marie K. Mckenzie Facility:[facility] Start: 12-03-2021 End: 12-03-2021 ambulatory Marie K. Mckenzie Facility:[facility] Start: 11-28-2021 End: 11-28-2021 ambulatory Marie K. Mckenzie Facility:[facility] Start: 11-23-2021 End: 11-23-2021 Emergency department patient visit Marie K. Mckenzie Facility:[facility] Start: 10-08-2021 End: 10-08-2021 ambulatory Marie K. Mckenzie Facility:[facility] Start: 09-10-2021 End: 09-10-2021 ambulatory Marie K. Mckenzie Facility:[facility] Start: 06-11-2021 End: 06-11-2021 ambulatory Marie K. Mckenzie Facility:[facility] Start: 06-11-2021 End: 06-11-2021 Patient encounter procedure Ele Peoples Work Phone: [facility] Start: 03-12-2021 End: 03-12-2021 ambulatory Diana Peoples Facility:[facility] Start: 03-12-2021 End: 03-12-2021 Patient encounter procedure Ele Peoples Work Phone: [facility] Start: 02-12-2021 End: 02-12-2021 ambulatory Diana Peoples Facility:[facility] Start: 02-12-2021 End: 02-12-2021 Patient encounter procedure Ele Peoples Work Phone: [facility] Start: 04-28-2017 End: 04-29-2017 [facility] Start: 04-14-2017 End: 04-14-2017 Unknown YONY Steven TAN [facility] Procedures Date Procedure Procedure Detail Performing Clinician Start: 03-10-2024 Ecg routine ecg w/least 12 lds trcg only w/o i&r Rachael Rivera APRN-SAMPLE SELECTOR Work Phone: Start: 03-10-2024 US Heart Transesophageal Cheyenne Horn MD Work Phone: Start: 03-10-2024 Radiologic exam chest 2 views Rachael Rivera APRN-SAMPLE SELECTOR Work Phone: Start: 03-10-2024 Comprehensive metabolic panel Rachael Rivera APRN-SAMPLE SELECTOR Work Phone: Start: 03-10-2024 VERAB/VERIFY ABORH Rachael Rivera CARDIAC EXERCISE PHYSIOLOGIST- SAMPLE SELECTOR Work Phone: Start: 03-05-2024 Ct heart contrast eval cardiac structure&morph Cheyenne Horn MD Work Phone: Start: 03-05-2024 Creatinine blood Interface Unspecifie dprovider Work Phone: Start: 01-16-2024 ALL MYOGLOBIN Jennifer Avery ADULT EDUCATION MANAGER Work Phone: Start: 01-16-2024 ALL THYROID STIM HORMONE Jennifer Avery N P Work Phone: Start: 01-16-2024 C[facility] CK Jennifer Avery ADULT EDUCATION MANAGER Work Phone: Start: 12-26-2023 Ecg routine ecg [...] Treatment Date Care Activity Detail Author Start: 04-29-2024 End: 04-29-2024 Patient encounter procedure 04/29/2024 11:20 AM EST Office Visit [facility] [address] [place] [phone] Jennifer Avery NP [address] [place] [phone] [facility] Start: 03-11-2024 End: 03-11-2024 Admission to same day surgery center 03/11/2024 8:00 AM EST - 03/11/2024 11:00 AM EST Surgery [facility] [address] [place] [id number] Cheyenne Horn MD [address] [facility] Medical Office [address], [address] [place] [address] ABLATION A-FIB CRYO [60368 (CPT )] [facility] Comment on above: ABLATION A-FIB CRYO [32010 (CPT )] Start: 03-11-2024 Subsequent hospital visit by physician 03/11/2024 8:00 AM EST Hospital Encounter [facility] [address] [place] [phone] Cheyenne Horn MD [address] [id number] Atrial fibrillation, unspecified type (Multi); Other fatigue; Shortness of breath on exertion [facility] Comment on above: Atrial fibrillation, unspecified type (M ulti); Other fatigue; Shortness of breath on exertion Start: 03-10-2024 End: 03-10-2024 Patient encounter procedure 03/10/2024 9:30 AM EST Appointment [facility] [address] [place] [address] Caroline Dixon MD [address] [facility], [address], [place] [id number] [facility] Start: 03-02-2024 End: 03-02-2024 Patient encounter procedure KAVITHA [address] Comment on above: Arrived Start: 01-06-2024 End: 01-06-2024 Patient encounter procedure [facility] FELI [address] Comment on above: Lumbar radiculopathy (Primary Dx); Cognitive impairment; Anxiety; Muscle stiffness; Blurry vision, bilateral Start: 01-06-2024 End: 01-05-2025 Aldolase Aldolase Lab Routine Weakness of both lower extremities Expected: 01/06/2024 (Approximate), Expires: 01/05/2025 [facility] Comment on above: Expected: 01/06/2024 (Approximate), Expi res: 01/05/2025 Start: 01-06-2024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 with mild chronic microvascular ischemic change. No acute intracranial pathology. Mucosal thickening is noted in the maxillary sinuses, left sphenoid sinus, and ethmoid air cells. EMG of the BUE at [facility] on 01/20/23: Bilateral median neuropathies, at or [...] low back pain with subjective lower extremity weakness. MRI of the lumbar spine on 12/31/23 identified mild to moderate degenerative changes at L4-L5 and L5-S1 without mention of severe stenosis. MRI did reveal moderate left and mild right neural foraminal narrowing at L4-L5 and mild neural foramen narrowing at L5-S1 which could be contributory to his symptoms. Gabapentin and duloxetine were not tolerated in the past, and [id number] medications provide minimal benefit. Pregabalin has been well tolerated and helpful for the patient's pain, however, symptoms persist. I believe he may benefit from a dose increase. PLAN: - Increase pregabalin to 50 mg by mouth three times a day. I counseled the patient on potential adverse effects. He verbalizes understanding and wishes to proceed. I advised him to notify our office if he experiences any adverse effects. [place]ARRS reviewed - Could consider epidural injections and/or pain management referral in the future to help improve symptom management. The patient declined these for now - Continue at home physical therapy exercises Lower extremity weakness The patient reports subjective lower extremity weakness. BLE EMG on 07/14/23 was unremarkable for cause. Labs on 01/16/24 (TSH, CK, myoglobin, aldolase, and NICK) were also unremarkable for cause. This may be secondary to lumbosacral radiculopathy. PLAN: - I reviewed lab results with the patient - See above Cognitive impairment The patient reports a subjective [...] symptoms. PLAN: - Follow up closely with [facility] for treatment of anxiety and depression - Sleep hygiene Anxiety The patient has anxiety which I believe may be causative for or exacerbating many of his symptoms. He discontinued duloxetine due to concern for potential side effects. PLAN: - Follow up with [facility] for treatment Cervical radiculopathy The patient has cervical radiculopathy as identified on BUE EMG from 01/20/23. He reports posterior neck pain and intermittent left hand numbness. MRI of the cervical spine 04/17/23 identified degenerative changes and some disc bulges with mild to moderate neural foraminal narrowing and mild spinal canal narrowing at certain levels. Physical therapy provided benefit, and the patient's neck pain remains well controlled recently. Gabapentin was not tolerated in the past due to side effects (dizziness, memory concerns). Duloxetine was also not tolerated. PLAN: - Continue at home physical therapy exercises Carpal tunnel syndrome (CTS), bilateral The patient has carpal tunnel syndrome as identified on BUE EMG from 01/20/23. This may be contributory to his left hand paresthesias, though he also has a cervical radiculopathy. [...] and 2-hr EEG on 06/24/23 were normal. PLAN: - Consider further work up in the future if symptoms return Blurry vision, bilateral The patient reports intermittent blurry vision that started in 2020. He does believe his vision has gradually worsened over time. MRI of the brain on 04/17/23 was unremarkable for intracranial cause. I suspect this may be secondary to an ocular issue. PLAN: - Follow up with ophthalmology Diagnosis and treatment options discussed in detail. All questions answered. The patient verbalizes understanding and is agreeable to the plan. Discussion in layman's terms. Follow up in the office within 1 to 2 months; sooner if needed for new or worsening symptoms. MARIXA Mckeon [facility] Advanced Neurology documented in this encounter [facility] 03-02-2024 Instructions Jennifer Avery NP - 03/02/2024 11:00 AM EST - Increase Lyrica to 50 mg by mouth three times a day documented in this encounter [facility] 01-06-2024 History of Present illness Narrative Images [...] wrist extensors , wrist flexor , and sales operations strength 5/5. LUE strength deltoid , biceps , triceps , wrist extensors , wrist flexor , and sales operations strength 5/5. RLE strength iliopsoas strength 4/5. Quadriceps, tibialis anterior, plantar flexion and dorsiflexion strength 5/5. LLE strength iliopsoas, quadriceps, tibialis anterior, plantar flexion and dorsiflexion strength 5/5. Tone and bulk are normal. Sensory: Sensation is intact to light touch throughout all four extremities. Sensation is intact to temperature in all extremities. Reflexes: Deep tendon reflexes are 1+ and symmetric throughout. Coordination: Culvfv-dc-vdpm testing normal. Rapid alternating movements are normal. Gait: Normal. Review and summary of old records: MRI of the lumbar spine w/o contrast at [facility] on 12/31/23: Mild to moderate [...] right degenerative facet arthropathy. Neuropsychological evaluation at [facility] on 07/15/23: Current neuropsychological evaluation demonstrates, [...] EMG of the bilateral lower extremities at [facility] on 07/14/23: Essentially normal. No evidence of lumbar radiculopathy. No evidence of a generalized process such as polyneuropathy. 2-hr EEG at [facility] on 06/24/23: Normal The patient was referred to cardiology for tachycardia and has since been diagnosed with atrial fibrillation. He is taking Eliquis and carvedilol and underwent cardiac catheterization in early 2023. Routine EEG at [facility] on 05/22/23: Normal Labs at [facility] on 04/23/23: TSH 1.835. B12 level 458. MRI of the cervical spine w/o contrast at [facility] on 04/17/23: No cord [...] the brain w and w/o contrast at [facility] on 04/17/23: There are punctate foci of T2 and T2 FLAIR hyperintense signal consistent with mild chronic microvascular ischemic change. No acute intracranial pathology. Mucosal thickening is noted in the maxillary sinuses, left sphenoid sinus, and ethmoid air cells. EMG of the BUE at [facility] on 01/20/23: Bilateral median neuropathies, at or [...] the patient on potential side effects including IMPROVEMENT NURSE effects in detail. He verbalizes understanding and [...] symptoms. PLAN: - Follow up closely with [facility] for [...] his symptoms. PLAN: - Follow up with [facility] for [...] new or worsening symptoms. Jennifer Avery NP [facility] Advanced Neurology documented in this encounter [facility] 01-06-2024 Instructions Jennifer Avery NP - 01/06/2024 3:00 PM EDT - Start pregabalin 25 mg by mouth three times a day - Laboratory evaluation (TSH, CK, myoglobin, aldolase, and NICK) documented in this encounter [facility] 12-26-2023 History of Present illness Narrative Referred [...] ECG was when it was performed at [facility]. At that time he knows he [...] tablet, oral, Every 12 hours scheduled (30,1830) FLUoxetine (PROZAC) 20 mg, oral, Daily before [...] for preoperative evaluation. documented in this encounter [facility] Work Phone: 12-26-2023 Instructions Zita Booker [...] FACC, FACP, FHRS documented in this encounter [facility] Work Phone: 12-04-2023 History of Present illness [...] The patient states he was hospitalized at [facility] ([facility]) for 1 week for inpatient psychiatric treatment recently. He was admitted for anxiety and depression. He states his psychiatric conditions temporarily improved while he was admitted but have worsened again. He denies suicidal or homicidal ideations. He sees a counselor in [place], [place], once to twice a month. He [...] his glasses consistently and follows with [facility]. He states his eye doctor denies [...] wrist extensors , wrist flexor , and sales operations strength 5/5. LUE strength deltoid , biceps , triceps , wrist extensors , wrist flexor , and sales operations strength 5/5. RLE strength iliopsoas strength 4/5. Quadriceps, tibialis anterior, plantar flexion and dorsiflexion strength 5/5. LLE strength iliopsoas, quadriceps, tibialis anterior, plantar flexion and dorsiflexion strength 5/5. Tone and bulk are normal. Sensory: Sensation is intact to light touch throughout all four extremities. Sensation is intact to temperature in all extremities. Reflexes: Deep tendon reflexes are 1+ and symmetric throughout. Coordination: Lvpayp-up-ozot testing normal. Rapid alternating movements are normal. Gait: Normal. Review and summary of old records: Neuropsychological evaluation at [facility] on 07/15/23: Current neuropsychological evaluation demonstrates, [...] EMG of the bilateral lower extremities at [facility] on 07/14/23: Essentially normal. No evidence of lumbar radiculopathy. No evidence of a generalized process such as polyneuropathy. 2-hr EEG at [facility] on 06/24/23: Normal The patient was referred to cardiology for tachycardia and has since been diagnosed with atrial fibrillation. He is taking Eliquis and carvedilol and underwent cardiac catheterization in early 2023. Routine EEG at [facility] on 05/22/23: Normal Labs at [facility] on 04/23/23: TSH 1.835. B12 level 458. MRI of the cervical spine w/o contrast at [facility] on 04/17/23: No cord [...] the brain w and w/o contrast at [facility] on 04/17/23: There are punctate foci of T2 and T2 FLAIR hyperintense signal consistent with mild chronic microvascular ischemic change. No acute intracranial pathology. Mucosal thickening is noted in the maxillary sinuses, left sphenoid sinus, and ethmoid air cells. EMG of the BUE at [facility] on 01/20/23: Bilateral median neuropathies, at or [...] the patient to follow up closely with [facility] for [...] his symptoms. PLAN: - Follow up with [facility] for treatment Muscle stiffness [...] radiculopathy as identified on BUE EMG from 10/30/23 (left C8). Symptoms are clinically consistent with [...] new or worsening symptoms. Jennifer Avery NP [facility] Advanced Neurology documented in this encounter [facility] 12-04-2023 Instructions Jennifer Avery NP - 12/04/2023 9:00 AM EDT - MRI of the lumbar spine documented in this encounter [facility] 11-11-2023 Progress note Note Date/Time November 11, 2023 12:44pm [facility] [address] [place] [address] Psychiatry Progress Note Signed Patient: Juan Carlos Noguera MR#: [id number] : 1970 Acct:[id number] Age/Sex: 53 / M Adm Date: 4 Loc: 1S Room: 1K3333-1 Type : ADM IN Attending Dr: Ronaldo [...] <Electronically signed by Lino Floyd MD> 11/11/23 5519 [facility] Work Phone: 1(421) 578-857308-19-2024 Progress note Author Lino Floyd [facility] November 10, 2023 12:53pm Note Date/Time November 10, 2023 12 :13pm [facility] [address] [place] [address] Psychiatry Progress Note Signed Patient: Juan Carlos Noguera MR#: [id number] : 1970 Acct:[id number] Age/Sex: 53 / M Adm Date: 4 Loc: Room: [address] [place] [address] Type : ADM IN Attending Dr: Ronaldo [...] discharge. Documented By: Lino Floyd MD 11/10/23 1208 Signed By: <Electronically signed by Lino Floyd MD> 11/10/23 6140 [facility] Work Phone: 1(493) 827-569508-18-2024 Progress note Author Ronaldo sahni [facility] November 09, 2023 3:23pm Note Date/Time November 09, 2023 1: 28pm [facility] [address] [place], [place] [id number] Psychiatry Progress Note Signed Patient: Juan Carlos Noguera MR#: [id number] : 1970 Acct:[id number] Age/Sex: 53 / M Adm Date: 4 Loc: 1S Room: 7Y6764-6 Type : ADM IN Attending Dr: Ronaldo [...] signed by Ronaldo Castro MD> 11/09/23 1523 [facility] Work Phone: 1(537) 111-468808-17-2024 Progress note Author Ronaldo sahni [facility] November 08, 2023 8:21pm Note Date/Time November 08, 2023 8: 30am [facility] [address] [place] [address] Psychiatry Progress Note Signed Patient: Juan Carlos Noguera MR#: [id number] : 1970 Acct:[id number] Age/Sex: 53 / M Adm Date: 4 Loc: 1S Room: [address] [place] [address] Type : ADM IN Attending Dr: Ronaldo [...] number and that his phone is , keno writer/runner suggested charging phone to get number but [...] <Electronically signed by Ronaldo Castro MD> 11/08/232020 [facility] Work Phone: 1(298) 779-261608-16-2024 Consult note Author Avril Fox [facility] November 07, 2023 4:09pm Note Date/Time November 07, 2023 4: 04pm [facility] [address] [place] [address] Cardiology Consult Note Signed Patient: Juan Carlos Noguera MR#: [id number] : 1970 Acct:[id number] Age/Sex: 53 / M Adm Date: 4 Loc: Room: [address] [place] [address] Type: ADM IN Attending Dr: Ronaldo Castro MD Copies to: MD Moreno Santiago MD Mourhaf A Traboulssi, MD~ Cardiology HPI History of Present Illness Consult Date: 11/07/23 Reason for Consult: Cardiac consultation requested for evaluation of atrial fibrillation HPI: Mr. Noguera is a 53 year old male with known history of atrial fibrillation diagnosed last year. He underwent evaluation by the [facility] cardiology group. He was diagnosed with mild nonischemic cardiomyopathy with LVEF around 45%. Mild coronary artery disease based on previous cardiac catheterization didnot require intervention. He did undergo cardioversion once which was successful but failed to remain in normal sinus rhythm. Patient was admitted [facility] mainly because of issue related to [...] all other pertinent symptom completely negative [facility] Medical History (Updated 11/07/23 @ 14:51 [...] with LVEF around 45% [facility] 3. Mild coronary artery disease based on recent heart cath at [facility] 4. Depression and anxiety Plan 1. Continue anticoagulation 2. Will increase Coreg to 12.5 mg twice daily. To optimize heart rate control 3. I advised the patient to call and reschedule his EP follow-up after discharge 4. Will follow on as-needed basis Documented By: Avril Fox MD 11/07/23 1606 Signed By: <Electronically signed by MD Avril Fox> 11/07/23 8110 [facility] Work Phone: 1(148) 515-836108-16-2024 History and physical note Author Ronaldo sahni [facility] November 07, 2023 2:51pm Note Date/Time November 07, 2023 9: 53am [facility] [address] [place] [address] Psychiatry H&P Signed Patient: Juan Carlos Noguera MR#: [id number] : 1970 Acct:[id number] Age/Sex: 53 / M Adm Date: 4 Loc: Room: [address] [place] [address] Type: ADM IN Attending Dr: Ronaldo Castro [...] convince his mom to go to a snf, thereby leaving him without housing options. According [...] that looked like uncle parth from the [employer] family but has not seen him again. [...] to internalstimuli. Insight: limited Judgment: limited [facility] Medical History (Updated 11/07/23 @ 14:51 [...] Appearance Clear Urine pH 6.0 Ur Specific [place] 1.017 Urine Protein 30 H Urine Glucose [...] <Electronically signed by Ronaldo Castro MD> 11/07/23 [facility] Work Phone: 1(624) 246-363805-13-2024 Note [id number]#1.00[facility] 07-31-2023 Evaluation + Plan noteExtracted from: [...] Basic PRE Author:Rocky Tompkins DO Date:07/31/23 Plan [place] [employer]hesi[employer] (ASA) physical status classification: Class II. Anesthetic Preoperative Plan: Anesthesia General. Future Appointments Appointment Date:08/11/2023 03:00:00 PM Scheduled Provider:Tylor Knight MD Location:.[facility] Appointment Type:Cardiology Follow Up (FT) Appointment Date:10/31/2023 01:00:00 PM Scheduled Provider:Zeb Delarosa MD Location[facility] Appointment Type:Cardiology Follow Up (FT) Future Scheduled Tests Laboratory* B-Type Natriuretic Peptide 06/16/23 * Basic Metabolic Panel 05/06/23 * Basic Metabolic Panel 06/16/23 * Basic Metabolic Panel 07/25/23 * CBC w/ Auto Diff 05/06/[address] [facility]05-09-2024 Hospital Discharge instructions Patient Education 07/31/2023 08:28:36 CV - Cardioversion (CUSTOM) [place], [place] CARDIOVERSION AFTER THE PROCEDURE: DIET: Resume [...] event you are unable to reach your contract law specialist, please call [facility] at [phone] and the clasp machine operator will assist you in contacting your [...] Up Care 07/28/2023 08:53:54 With:Tylor Knight Address: [address] [place] [address] [place] [address]- [phone] Business (1) When:08/11/2023 15:00:[address] [facility]05-09-2024 NoteProcedure Procedure date: 07/31/2023 Elective DC cardioversion Indication: Symptomatic paroxysmal atrial fibrillation Procedure description: The patient was brought to the endoscopy suite in the fasting state. Timeout was performed. Deep sedation was provided by anesthesia services. The patient underwent synchronized cardioversion shocks x 2, with rastafarian of normal sinus rhythm at [address] [...] Therapy Surgical Site Prep Per Protocol Vital SignsOhiohealth O'Bleness HospitalComment on above:Result Comment: Electronically Signed By: Antonia RUBIO, Tylor Potter\.krista\Date and Time Signed: 07/31/23 08:19 [id number] Evaluation + Plan note Future Scheduled Tests Laboratory* B-Type Natriuretic Peptide 06/16/23 * Basic Metabolic Panel 05/06/23 * Basic Metabolic Panel 06/16/23 * Basic Metabolic Panel 07/25/23 * CBC w/ Auto Diff 05/06/[address] [facility] [id number] Evaluation + Plan note Future Scheduled Tests Laboratory* B-Type Natriuretic Peptide 06/16/23 * Basic Metabolic Panel 05/06/23 * Basic Metabolic Panel 06/16/23 * Basic Metabolic Panel 07/25/23 * CBC w/ Auto Diff 05/06/23 * Hepatic Function Panel 12/30/23 * Thyroid Stimulating Hormone 12/30/[address] [facility] [id number] NoteProcedure [facility] poss PCI via right radial for evaluation [...] Sedation Plan: Patient agrees to IV sedation [facility] Comment on above:Result Comment: Electronically Signed By: Isaura RUBIO, Zeb Reza\.br\Date and Time Signed: 05/13/23 13:43 [id number] Note [id number]#1.00[facility] Discharge instructions Patient Education 05/08/2023 13:13:00 CV - Cardiovascular Discharge Instructions (CUSTOM) [place], [place] CARDIOVASCULAR DISCHARGE INSTRUCTIONS Diet: Resume pre-procedure [...] hours post procedure: Actoplus MetGlucophageGlucophage XR GlucovanceAvandametFortamet Lsl-twwkjnzioOzajzpEjim-taurblgld GlumetzaJanumetMetaglip RiometGlycomet *Minimal pain, soreness and/or discomfort [...] [facility] at [phone], ext. [phone]. In the event you are unable to reach your physician, please call [facility] at [phone] and the clasp machine operator will assist you. Seek Immediate Medical Care for: Bleeding: Apply continuous pressure to the site and Call 911. Should the arm or leg become cold, numb, blue or white call your physician immediately. Signs of infection are redness, warmth, swelling, increased tenderness, colored drainage, fever or chills Chest pain Follow Up Care 05/05/2023 16:03:04 With:Zeb Delarosa Address: [address] [place], [place] [address] Business (1) When:05/30/2023 15:15:[address] [facility]01-30-2024 NoteEchocardiology Procedure Exam Date/Time Accession # Ordering Echo Transthoracic 04/15/2023 08:56 EST [id number] Isaura RUBIO, Zeb Reza CPT code 65203 63883 Reason for Exam (Echo Transthoracic Complete) R07.09;Chest pain Report Version: 1 Study ID: [id number] [facility] [address] [place] [address] Adult Echocardiogram Report Name: CHUCKIE RANGEL Study Date: 04/15/2023, 8: 01 AM Patient Location: [facility] : 1970 (MM/DD/YYYY) Gender: Male Age: [...] Signed by: Zeb Delarosa MD Transcribed by: [facility] Technologist: [facility]10-06-2023 Evaluation note* Encounter Date Diagnosis Assessment Notes Treatment Notes Treatment Clinical Notes Dec, Foraminal stenosis of cervical region (ICD-10 - M48.02) Fly6 [facility] Other 09-19-2023 Evaluation note* Encounter Date Diagnosis Assessment Notes Treatment Notes Treatment Clinical Notes Nov, Foraminal stenosis of cervical region (ICD-10 - M48.02) [employer] Other 09-14-2023 Evaluation note* Encounter Date Diagnosis [...] - J45.31) Pt requests refill of inhaler. [facility] Other 07-10-2023 Evaluation note* Encounter Date Diagnosis [...] understanding and is agreeable to treatment plan. [employer] Other Evaluation + Plan note Future Appointments Appointment Date:05/02/2023 01:15:00 PM Scheduled Provider:Zeb Delarosa MD Location[facility] Appointment Type:Cardiology Follow Up (FT) Future Scheduled Tests Radiology* NM Myocardial Spect Rest/Stress 1 Day 03/20/23 * Echo Transthoracic [facility]20/[address] [facility] [address] Future Appointments Appointment Date:05/02/2023 01:15:00 PM Scheduled Provider:Zeb Delarosa MD Location:[facility] Appointment Type:Cardiology Follow Up (FT) [facility] Future Appointments Appointment Date:10/31/2023 01:00:00 PM Scheduled Provider:Zeb Delarosa MD Location:[facility] Appointment Type:Cardiology Follow Up (FT[facility] Future Appointments Appointment Date:05/30/2023 03:00:00 PM Scheduled Provider:Zeb Delarosa MD Location:[facility] Appointment Type:Cardiology Follow Up (FT) Appointment Date:10/31/2023 01:00:00 PM Scheduled Provider:Zeb Delarosa MD Location:[facility] Appointment Type:Cardiology Follow Up (FT) Future Scheduled Tests Laboratory* Basic Metabolic Panel 05/06/23 * CBC w/ Auto Diff 05/06/[address] Future Appointments Appointment Date:10/31/2023 01:00:00 PM Scheduled Provider:Zeb Delarosa MD Location:[facility] Appointment Type:Cardiology Follow Up (FT) Future Scheduled Tests Laboratory* Basic Metabolic Panel 05/06/23 * CBC w/ Auto Diff 05/06/[address] Future Appointments Appointment Date:10/31/2023 01:00:00 PM Scheduled Provider:Zeb Delarosa MD Location:[facility] Appointment Type:Cardiology Follow Up (FT) Future Scheduled Tests Laboratory* B-Type Natriuretic Peptide 06/16/23 * Basic Metabolic Panel 05/06/23 * Basic Metabolic Panel 06/16/23 * Basic Metabolic Panel 07/25/23 * CBC w/ Auto Diff 05/06/[address] Future Appointments Appointment [...] 07/25/23 * CBC w/ Auto Diff 05/06/[address] [facility] Future Appointments Appointment Date:11/11/2023 09:00:00 AM Scheduled Provider:Tylor Knight MD [facility] Type:Cardiology Follow Up (FT) Future Scheduled Tests Laboratory* B-Type Natriuretic Peptide 06/16/23 * Basic Metabolic Panel 05/06/23 * Basic Metabolic Panel 06/16/23 * Basic Metabolic Panel 07/25/23 * CBC w/ Auto Diff 05/06/[address] [facility] Evaluation + Plan note Future Appointments Appointment Date:01/30/2024 02:45:00 PM Scheduled Provider:Tylor Knight MD [facility] Type:Cardiology Follow Up (FT) Future Scheduled Tests Laboratory* B-Type Natriuretic Peptide 06/16/23 * Basic Metabolic Panel 05/06/23 * Basic Metabolic Panel 06/16/23 * Basic Metabolic Panel 07/25/23 * CBC w/ Auto Diff 05/06/23 * Hepatic Function Panel 12/30/23 * Thyroid Stimulating Hormone 12/30/[address] [facility] evaluation note* Diagnosis Onset Date Resolution Status Anxiety disorder acute BMI 25.0-25.9,adult acute Chews tobacco acute Major depression acute PTSD (post-traumatic stress disorder) acute Cigarette nicotine dependence without complication noneactive [facility] Work Phone: evaluation note* Diagnosis Onset Date Resolution Status Anxiety disorder acute BMI 25.0-25.9,adult acute Chews tobacco acute Insomnia acute Major depression acute PTSD (post-traumatic stress disorder) chronic Cigarette nicotine dependence without complication noneactive Anxiety disorder acute BMI 25.0-25.9,adult acute Chews tobacco acute Major depression acute Swelling of left middle finger chronic Cigarette nicotine dependence without complication noneactive [facility] Work Phone: evaluation note* Diagnosis Onset [...] chronic Swelling of left middle finger chronic [facility] Work Phone: evaluation noteNo assessment information available [facility] Work Phone: Evaluation note* Diagnosis Onset Date Resolution Status Suicidal ideation acute [facility] Work Phone: Evaluation note* Diagnosis Onset Date Resolution Status Generalized anxiety disorder acute Major depressive disorder, recurrent, moderate acute Suicidal ideation acute [facility] Work Phone: Evaluation note* Diagnosis Onset Date Resolution Status Suicidal ideation resolved Acute conjunctivitis, left eye acute [facility] Work Phone: Evaluation note* Diagnosis Atrial fibrillation, unspecified type (Multi)- Primary Other fatigue Shortness of breath on exertion Shortness of breath Encounter to establish care with new doctor Encounter for medication review and counseling Encounter to discuss treatment options BMI 26.0-26.9,adult Current smoker documented in this encounter [facility] Work Phone: Evaluation note* Diagnosis Lumbar radiculopathy- Primary Thoracic or lumbosacral neuritis or radiculitis, unspecified Weakness of both lower extremities Cognitive impairment Unspecified persistent mental disorders due to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
== END 2024-03-20 17:05 | disposition left against medical advice (07) ==
LOC: ER 16:26
PROVIDERS: Emergency Provider Emergency Medicine; PCP Family Medicine
DX: Z53.21 Procedure and treatment not carried out due to patient leaving prior to being seen by health care provider (principal)

== ENCOUNTER 2025-02-18 09:46 | Emergency (ER) | payer OTHER, SELFPAY ==
[2025-02-18 09:57] VITALS: BP 151/85; PULSE 83; TEMP 36.6; O2SAT 97; BMI 25.7
--- NOTE | 2025-02-18 10:11 | ECG_ITS ---
[facility] Test Date: 2025-02-18 Pat Name: MERI CABRERA Department: Room: - Gender: Male Jamb Cutter: : 1970 Requested By: 1030 Order Number: [id number] Reading MD: RUDY WILSON M.D. Measurements Intervals Rugby Rate: 77 P: 76 UT: 152 QRS: 70 QRSD: 88 T: 64 QT: 392 QTc: 423 Interpretive Statements 1100 Sinus rhythm 9110 normal ECG Compared to ECG 04/16/2023 12:54:01 Atrial fibrillation no longer present Electronically Signed On 02-18-2025 13:28:52 EST by RUDY WILSON M.D.
--- OUTSIDE RECORDS SUMMARY | 2025-02-18 10:33 | XMS_ITS | Clinical Summary ---
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 Name Role Phone Monica Rosales MD Primary Care Provider [phone] Jennifer Avery NP Unavailable Allergies Active AllergyReactionsCriticalityNoted TtdcBicbniitGjgduisaot83/12/2024 sensation of, fireworks in the brain and diarrhea Zpkexnovrk86/10/2024 Medications MedicationSigDispense QuantityRefillsLast FilledStart DateEnd DateStatus albuterol HFA 90 mcg/act inhaler Inhale 2 puffs every 4 (four) hours if xiwnuo6401/07/2023ctive aspirin 81 MG chewable tablet Chew 81 mg03/20/2023ctive metoprolol tartrate (Lopressor) 25 MG tablet Take 25 mg by mouth03/20/2023ctive carvedilol (Coreg) 3.125 MG tablet Take 3.125 mg by mouth in the morning and 3.125 mg in the evening. Take with meals. 1 tablet.Active apixaban (Eliquis) 5 MG tablet Take 5 mg by mouth in the morning and 5 mg before bedtime. 1 tablet .Active sacubitril-valsartan (Entresto) 24-26 MG tablet Take 1 tablet by mouth in the morning and 1 tablet before bedtime. 1 TABLET .Active spironolactone (Aldactone) 25 MG tablet Take 25 mg by mouth Daily 1 tabletActive acetaminophen (Tylenol) 325 MG capsule Take 1-2 capsules by mouth every 6 (six) hours if neededActive amphetamine-dextroamphetamine (Adderall) 20 MG tablet Take 20 mg by mouth in the morning and 20 mg before bedtime.Active Lipitor 40 MG tablet Take 40 mg by mouth Daily07/28/2023ctive losartan (Cozaar) 50 MG tablet Take 50 mg by mouth Daily05/30/2023ctive Methocarbamol (ROBAXIN IJ) Active POLYETHYLENE GLYCOL 3350 PO Active oxyCODONE HCl (ROXICODONE PO) Active busPIRone (Buspar) 5 MG tablet Take 5 mg by mouth in the morning and 5 mg in the evening and 5 mg before bedtime.11/12/2023ctive FLUoxetine (PROzac) 20 MG capsule Take 20 mg by mouth in the morning.11/27/2023ctive sertraline (Zoloft) 50 MG tablet Take 50 mg by mouth Daily11/06/2023ctive ARIPiprazole (Abilify) 10 MG tablet Take 10 mg by mouth at qeuqppp5111/13/2023ctive amiodarone (Pacerone) 200 MG tablet Take 200 mg by mouth DailyActive pregabalin (Lyrica) 50 MG capsule Indications:Lumbar radiculopathyTake 1 capsule (50 mg) by mouth in the morning and 1 capsule (50 mg) in the evening and 1 capsule (50 mg) before bedtime. Do all this for 7 days. Do not start before April 02, 2024. 21 capsule 5Active Active Problems ProblemNoted DateDiagnosed DateCervical leyzffgzqrtuv60/20/5154Flfdgiz44/15/2024 Overview (07/07/2023): The patient has anxiety. He discontinued duloxetine due to concern for potential side effects (sensation of, fireworks in the brain and diarrhea). He believes anxiety is poorly controlled, and I question is this is causative for or exacerbating many of his symptoms. PLAN: - Referral to [facility] for evaluation and treatment Numbness and apubohwj66/15/2024Stenosis, cervical spine07/07/2023DD (degenerative disc disease), tdrgurlp22/15/2024 Overview (07/07/2023): Pt has DDD of C spine on x ray. 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 Certainly, this may be contributing to some of the paresthesias in the patient's left hand, though he also has a cervical radiculopathy. Left cock-up wrist splint at bedtime has not provided benefit for his symptoms. He denies any apparent symptoms in the right hand/wrist. PLAN: - Continue to follow with orthopedic surgery for management. Reportedly, they have recommended surgery but are awaiting cardiac clearance Atrial vhtypyjdxuro26/15/2024 Overview (07/07/2023): The patient was referred to cardiology for tachycardia and has since been diagnosed with atrial fibrillation. He is taking Eliquis and carvedilol and underwent cardiac catheterization in early 2023. PLAN: - Follow closely with cardiology for management - The patient repeatedly asks about results ofcardiac testing at today's appointment. I encouraged him to discuss this with his production solderer Family History Medical HistoryRelationNameCommentsAtrial fibrillationFatherRelationNameStatus CommentsFather Social History Tobacco UseTypesPacks/DayYears UsedDateSmoking Tobacco: Every DayCigarettes Passive Smoke Exposure: Current Tobacco Cessation:Ready to Q uit: Not Asked; Counseling Given: Not Answered Alcohol UseStandard Drinks/WeekCommentsNot Currently0 (1 standard drink = 0.6 oz pure alcohol)quit drinking 2022Sex and Gender InformationValueDate RecordedSex Assigned at BirthNot on fileLegal QqjJxzv4803/26/2023 11:15 AM ESTGender Identity Not on fileSexual OrientationNot on file Last Filed Vital Signs Vital SignReadingTime TakenCommentsBlood Vksjlgzt709/7612 10:55 AM EST Vauhi483908/11/2023 8:35 AM EPLYhebqvoesbs19 ??C (96.8 ??F)04/07/2023 2:40 PM EST Respiratory Aikc565608/11/2023 8:35 AM EDTOxygen Jjebewgqiu57%08/11/2023 8:35 AM EDTInhaled Oxygen Concentration--Tedlhk876 kg (221 lb)03/02/2024 10:55 AM EST Lxfogy297.3 cm (5' 11 )03/02/2024 10:55 AM ESTBody Mass Index30.8203/02/2024 10:55 AM EST Plan of Treatment Health MaintenanceDue DateLast DoneCommentsCT Ikhyuwjuokkp64/27/1969Colonoscopy 1968Colorectal Cancer Zxumvweor74/27/1969FIT-DNA1968FIT1968 FOBT1968 0572Dfmexercemvxs29/27/1969Pneumococcal Vaccine: Pediatrics (0 to 5 Years) and At-Risk Patients (6 to 64 Years) (1 of 2 - PCV)10/18/1987COVID-19 Vaccine (1 - 2024- season)2024Influenza Vaccine (#1)2024 Insurance Care Teams Team MemberRelationshipSpecialtyStart DateEnd Date Monica Rosales MD PCP - GeneralFamily Medicine04/07/23 Jennifer Avery NP [address] [place] [address] PCP - [facility]12/23/23
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
--- OUTSIDE RECORDS SUMMARY | 2025-02-18 10:33 | XMS_ITS | Clinical Summary ---
Author Organization [facility] Address [address] 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 Phone Monica Rosales MD Primary Care Provider [phone] Cheyenne Higgins MD Unavailable Allergies No known active allergies Medications MedicationSigDispense QuantityRefillsLast FilledStart DateEnd DateStatus albuterol 90 mcg/actuation inhaler Inhale 2 puffs every 4 hours if needed.06/14/2023ctive Eliquis 5 mg tablet Take 1 tablet (5 mg) by mouth every 12 hours.10/16/2023ctive atorvastatin (Lipitor) 40 mg tablet Take 1 tablet (40 mg) by mouth early in the morning..10/19/2023ctive carvedilol (Coreg) 3.125 mg tablet Take 2 tablets (6.25 mg) by mouth 2 times a day.07/28/2023ctive Entresto 24-26 mg tablet Take 1 tablet by mouth every 12 hours.10/17/2023ctive acetaminophen (Tylenol) 325 mg tablet Take 1 tablet (325 mg) by mouth every 6 hours if needed for mild pain (1 - 3). Active busPIRone (Buspar) 5 mg tablet Take 3 tablets (15 mg) by mouth 2 times a day. Recently increased 15mg twice daily11/12/2023ctive pregabalin (Lyrica) 25 mg capsule Take 1 capsule (25 mg) by mouth 3 times a day.Active prazosin (Minipress) 1 mg capsule Take 1 capsule (1 mg) by mouth once daily at bedtime.Active ARIPiprazole (Abilify) 10 mg disintegrating tablet Dissolve 15 mg in the mouth once daily. States recently increased to 15mg ( 10mg 1 1/2 tabs) in the morningsActive amiodarone (Pacerone) 200 mg tablet Indications:Atrial fibrillation, persistent (Multi)Take 1 tablet (200 mg) by mouth 2 times a day. For 2 weeks (05/28/24 thru 06/10/24) then resume 1 tablet daily starting 06/11/24 14 tablet 5Active Active Problems ProblemNoted DateDiagnosed DateAtrial fibrillation, fpccripqzz73/06/2025PAF (paroxysmal atrial fibrillation)01/02/2024trial kzrlvtwvarej27/04/2024Other kscwhot4412/26/2023Shortness of breath on zvbhkeau50/04/2024Encounter to establish care with new qmkwvg7012/26/2023Encounter for medication review and counseling 12/26/2023Encounter to discuss treatment jfyhlqj7012/26/2023MI 26.0-26.9,adult 12/26/2023urrent fqhmpx4712/26/2023 Family History Medical HistoryRelationNameCommentsAtrial fibrillationBrotherHeart diseaseFather CancerMotherRelationNameStatusCommentsBrotherFatherAliveMotherDeceased Social History Tobacco UseTypesPacks/DayYears UsedDateSmoking Tobacco: Every DayCigarettes Smokeless Tobacco: Current Tobacco Cessation:Ready to Q uit: Not Asked; Counseling Given: Not Answered Comments: Chew everyday Alcohol UseStandard Drinks/WeekCommentsNot Currently0 (1 standard drink = 0.6 oz pure alcohol)B1300 Health LiteracyAnswerDate RecordedHow often do you need to have someone help you when you read instructions, pamphlets, or other written material from your doctor or pharmacy?Patient declines to zkysijb5405/27/2024HC UtilitiesAnswerDate RecordedIn the past 12 months has the [employer], [employer], or water [employer] threatened to shut off services in your home?Patient declined 05/27/2024Humiliation, Afraid, Rape, and Kick questionnaireAnswerDate Recorded Within the last year, have you been afraid of your partner or ex-partner?Patient iclljell54/06/2025Within the last year, have you been humiliated or emotionally abused in other ways by your partner or ex-partner?Patient ohyqdkck43/06/2025 Within the last year, have you been kicked, hit, slapped, or otherwise physically hurt by your partner or ex-partner?Patient jiuexcxe50/06/2025Within the last year, have you been raped or forced to have any kind of sexual activity by your partner or ex-partner?Patient lyehkbvd79/06/2025Social Connection and Isolation PanelAnswerDate RecordedIn a typical week, how many times do you talk on the phone with family, friends, or neighbors?Patient /06/2025How often do you get together with friends or relatives?Patient xcbjxuit41/06/2025 How often do you attend zoroastrian or mandaen services?Patient /06/2025 Active Member of Clubs or OrganizationsNot on file05/27/2024How often do you attend meetings of the clubs or organizations you belong to?Patient declined 05/27/2024re you , , , , never , or living with a partner?Patient ftjoechy76/06/2025UDIT-CAnswerDate RecordedQ1: How often do you have a drink containing alcohol?Patient ydukptqr48/06/2025Q2: How many drinks containing alcohol do you have on a typical day when you are drinking?Patient jiglvrss59/06/2025Q3: How often do you have six or more drinks on one occasion?Patient pzimzbhb22/06/2025Overall Financial Resource Strain (CARDIA)AnswerDate RecordedHow hard is it for you to pay for the very basics like food, housing, medical care, and heating?Patient bourafxt87/06/2025PHQ-2 AnswerDate RecordedPatient Health Questionnaire-2 Fjfzm072[facility] [facility] Occupational [facility] - Occupational Stress QuestionnaireAnswerDate RecordedDo you feel stress - tense, restless, nervous, or anxious, or unable to sleep at night because yourmind is troubled all the time - these days?Patient lknoxtlq63/06/2025Exercise Vital SignAnswerDate RecordedOn average, how many days per week do you engage in moderate to strenuous exercise (like a brisk wal k)?Patient nafzmfgg48/06/2025On average, how many minutes do you engage in exercise at this level?Patient /06/2025Hunger Vital SignAnswerDate RecordedWithin the past 12 months, you worried that your food would run out before you got the money to buymore.Patient gotgbnun66/06/2025Within the past 12 months, the food you bought just didn't last and you didn't have money to get more.Patient vorrrrhf13/06/2025PRAPARE - TransportationAnswerDate RecordedIn the past 12 months, has lack of transportation kept you from medical appointments or from getting medications?Patient unptxzsr10/06/2025In the past 12 months, has lack of transportation kept you from meetings, work, or from getting things needed for daily living?Patient fwjqfska32/06/2025Housing Stability Vital Sign AnswerDate RecordedIn the last 12 months, was there a time when you were not able to pay the mortgage or rent on time?Patient cmqunjba63/06/2025In the past 12 months, how many times have you moved where you were living?t any time in the past 12 months, were you homeless or living in a long-term (including now)?Patient zdalzymc52/06/2025Sex and Gender InformationValueDate RecordedSex Assigned at BirthNot on fileLegal XxlMotp4708/12/2023 8:05 AM EDTGender Identity Not on fileSexual OrientationNot on file Last Filed Vital Signs Vital SignReadingTime TakenCommentsBlood Zxgowoei242/64005/28/2024 11:00 AM EST Lxgnh167305/28/2024 11:00 AM VZSQbobugjwyus63.5 ??C (99.5 ??F)05/28/2024 11:00 AM ESTRespiratory Lcjg403905/28/2024 11:00 AM ESTOxygen Guueddxuyx82%05/28/2024 11:00 AM ESTInhaled Oxygen Concentration--Exdpff77 kg (213 lb 13.5 oz)05/27/2024 7:47 AM FEGUqntbh535 cm (6' 2 )05/27/2024 7:47 AM ESTBody Mass Index27.46005/27/2024 7:47 AM EST Plan of Treatment Health MaintenanceDue DateLast DoneCommentsCT Rgadakzveviy40/27/1969Colonoscopy 1968Colorectal Cancer Bpqbdgbqt02/27/1969FIT-DNA (Cologuard)1968FIT 1968HIV Lntexhgxz48/27/1969Lipid Panel1968 3674Vpfkgxwqntwyp68/27/1969TSH Level1968Yearly Adult Ykdqrgfz27/27/1969MMR Vaccines (1 of 1 - Standard series)1969Hepatitis C Cabghxwrp78/27/1987Hepatitis B Vaccines (1 of 3 - 19+ 3-dose series)10/18/1987DTaP/Tdap/Td Vaccines (1 - Tdap)1990PSA Prostate Cancer Aryigmvps65/27/2019Zoster Vaccines (1 of 2)2018 Pneumococcal Vaccine (2 of 2 - PPSV23, PCV20, or PCV21)/ Influenza Vaccine (#1)9/4COVID-19 Vaccine (1 - 2024- season) 2024Diabetes Kzubjuyfl32/06/777114/08/2024, 03/10/2024HIB VaccinesAged Out 05/10/2020No longer eligible based on patient's age to complete this topic Meningococcal VaccineAged Out05/10/2020No longer eligible based on patient's age to complete this topicHPV VaccinesAged OutNo longer eligible based on patient's age to complete this topicHepatitis A VaccinesAged OutNo longer eligible based on patient's age to complete this topicIPV VaccinesAged OutNo longer eligible based on patient's age to complete this topicRotavirus VaccinesAged OutNo longer eligible based on patient's age to complete this topic Procedures Procedure NamePriorityDate/TimeAssociated DiagnosisCommentsCOMPREHENSIVE METABOLIC TUVAPAZRB01/06/2025 7:50 AM EST from Last 3 Months or Most Recently Relevant to Health Maintenance Results * (ABNORMAL) Comprehensive Metabolic Panel (05/27/2024 7:50 AM EST)Component ValueRef RangeTest MethodAnalysis TimePerformed AtPathologist SignatureGlucose 100(H)74 - 99 mg/dL LAB CHEMISTRY METHOD 05/27/2024 8:17 AM [facility] OXDCgukdq181491 - 145 mmol/L LAB CHEMISTRY METHOD 05/27/2024 8:17 AM [facility] LABPotassium4.23.5 - 5.3 mmol/L LAB CHEMISTRY METHOD 05/27/2024 8:17 AM [facility] YDJFxroaqqd93875 - 107 mmol/L LAB CHEMISTRY METHOD 05/27/2024 8:17 AM [facility] RRDBgeybfvhpum3421 - 32 mmol/L LAB CHEMISTRY METHOD 05/27/2024 8:17 AM [facility] LABAnion Gap9(L)10 - 20 mmol/L LAB CHEMISTRY METHOD 05/27/2024 8:17 AM [facility] LABUrea Dlefomhd557 - 23 mg/dL LAB CHEMISTRY METHOD 05/27/2024 8:17 AM [facility] LABCreatinine1.260.50 - 1.30 mg/dL LAB CHEMISTRY METHOD 05/27/2024 8:17 AM [facility] VFVaUQH79>60 mL/min/1.73m*2 LAB CHEMISTRY METHOD 05/27/2024 8:17 AM [facility] LABComment: Calculations of estimated GFR are performed using the 2020 CKD-EPI Study Refit equation without therace variable for the IDMS-Traceable creatinine methods. https://jasn.asnjournals.org/content//ASN.4939943279 Calcium9.08.6 - 10.3 mg/dL LAB CHEMISTRY METHOD 05/27/2024 8:17 AM [facility] LABAlbumin4.43.4 - 5.0 g/dL LAB CHEMISTRY METHOD 05/27/2024 8:17 AM [facility] LABAlkaline Dorlelezofp2515 - 120 U/L LAB CHEMISTRY METHOD 05/27/2024 8:17 AM [facility] LABTotal Protein6.66.4 - 8.2 g/dL LAB CHEMISTRY METHOD 05/27/2024 8:17 AM [facility] KJOOHD345 - 39 U/L LAB CHEMISTRY METHOD 05/27/2024 8:17 AM [facility] LABBilirubin, Total0.50.0 - 1.2 mg/dL LAB CHEMISTRY METHOD 05/27/2024 8:17 AM [facility] XVUHGM3184 - 52 U/L LAB CHEMISTRY METHOD 05/27/2024 8:17 AM [facility] LABComment:Patients treated with Sulfasalazine may generate falsely decreased results for ALT.Specimen (Source) Anatomical Location / LateralityCollection Method / VolumeCollection Time Received TimeBloodVenous blood specimen / UnknownVenipuncture / Unknown 05/27/2024 7:50 AM EST05/27/2024 7:58 AM EST Narrative Authorizing ProviderResult TypeResult StatusRachael Castillo Nicole RAILROAD CROSSING PROTECTION MAINTAINER-CNPLAB BLOOD ORDERABLESFinal ResultPerforming OrganizationAddressCity/State/ZIP CodePhone Number [facility] [address] [place] [address] from Last 3 Months or Most Recently Relevant to Health Maintenance Insurance Advance Directives For more information, please contact: [phone] (Available ) * Full Code (Latest Code Status on File) Date ActivatedDate InactivatedComments05/27/2024 7:31 AMQuestionAnswerCommentsPlan of Care:* Code Status Discussion Not Completed Decision Maker:* Provider Rationale:* Patient condition does not warrant discussion Care Teams Team MemberRelationshipSpecialtyStart DateEnd Date Monica Rosales MD [address] [place] [id number] PCP - GeneralFamily Medicine08/12/23 Cheyenne Higgins MD [address] [facility] [address], [address] [place] [address] CardiologistElectrophysiology10/28/23
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
--- OUTSIDE RECORDS SUMMARY | 2025-02-18 10:33 | XMS_ITS | CCD ---
Author Organization [facility] Team Providers Care Paralegal Instructor Name Role Phone TANYONY Unavailable Unavailable No Family, Physician Unavailable Unavailable BARBARA KOROMA Unavailable Unavailable No Family, Physician Unavailable Unavailable Ele Peoples Family Provider [phone] Claudia Mckenzie Primary Care Provider Claudia Mckenziendtenisha Cloud Attending Provider Ele Peoples Family Provider [phone] Claudia Mckenziendtenisha Cloud Primary Care Provider [phone] Stevie MckenziePRaymond MorelandMarie K. Attending Provider Diana Peoples Consulting Unavailable Mckenzie, Marie Magno. [...] Care Unavailable Mckenzie, Marie K. Consulting Unavailable Wenning, Florinda Attending Unavailable Mckenzie, Marie K. Primary Care Unavailable Mckenzie, Marie K. Attending Unavailable Mckenzie, Marie K. Consulting Unavailable Mckenzie, Marie K. Primary Care Unavailable Kat Boss Unavailable Moreno Barrera Unavailable MORENO BARRERA Primary Care Physician [phone] MELANY Avery Attending Provider Unavailable MD Moreno Barrera Primary Care Provider [phone] MD Moreno Barrera Primary Care Provider MD Ronaldo Castro Attending Provider MD Arnaldo [facility] Emergency Provider [phone] MD Ronaldo Castro Admit Provider MD Moreno Barrera Primary Care Provider MD Ronaldo Castro Attending Provider MD Moreno Barrera Primary Care Provider [phone] MD Lino Floyd Attending Provider MD Ronaldo Castro Attending Provider Moreno Barrera MD Primary Care Provider Cheyenne Horn MD Unavailable Moreno Barrera MD Primary Care Provider Avery LOZENGE DOUGH MIXER, Jennifer Unavailable POCLESVIA RODRIGUES Attending Unavailable CARRIE, LESVIA Steven Referring Unavailable ANGELA GARZA Attending Unavailable ANGELA GARZA Referring Unavailable AVERY, JENNIFER Attending Unavailable AVERY, JENNIFER Attending Unavailable AVERY, JENNIFER Attending Unavailable AVERY, JENNIFER Attending Unavailable AVERY, JENNIFER Attending Unavailable Cheyenne Horn MD Unavailable KORY, CHEYENNE Singleton Attending Unavailable MORENO BARRERA E Primary Care Unavailable CHEYENNE HORN Admitting Unavailable KORY, CHEYENNE Singleton Attending Unavailable BARRERA MORENO E Primary Care Unavailable KORY, CHEYENNE Singleton Referring Unavailable BARRERAMORENO Primary Care Unavailable CAROLINE DIXON Attending Unavailable KORYCHEYENNE Referring Unavailable MORENO BARRERA E Primary Care Unavailable RACHAEL RIVERA Referring Unavailable BARRERAMORENO Primary Care Unavailable RACHAEL RIVERA Referring Unavailable MORENO BARRERA Primary Care Unavailable MD Tylor Knight Referring Unavailable Montalvo, Basem GRaymond Admitting Unavailable Montalvo, Basem GRaymond Attending Unavailable MD Tyolr Knight Attending Unavailable NONE, XXXX Referring Unavailable MD Tylor Knight Admitting Unavailable MD Jairo Godinez Attending Unavailable NONE, XXXX Referring Unavailable MD Tylor Knight Attending Unavailable NONE, XXXX Referring Unavailable MD Tylor Knight Attending Unavailable MD Tylor Knight Admitting Unavailable NONE, XXXX Referring Unavailable MD Tylor Knight Attending Unavailable NONE, XXXX Referring Unavailable MD Tylor Knight Attending Unavailable NONE, XXXX Referring Unavailable MD Tylor Knight Admitting Unavailable Moreno Barrera MD Primary Care Provider [phone] Bennie LOZENGE DOUGH MIXER, Jennifer Unavailable Unavailable Moreno Barrera MD Primary Care Provider Antonio ADAMS, Jay Singleton Emergency Provider [phone] Lino Floyd MD Admit Provider Lino Floyd MD Attending Provider Lino Floyd MD Other Provider [phone] Lino Floyd Admitting Unavailable Moreno Barrera Primary Care Unavailable Lino Floyd Attending Unavailable Ronaldo Castro Attending Unavailab Ronaldo Kolb Admitting Unavailab Moreno Johns Primary Care Unavailable Allergies Allergy ClassificationReported Allergen(s)Allergy TypeDate of OnsetReaction(s) Facility (11 sources)DULoxetineDrug Orkpjpo95-88-3540[facility] Work Phone: (4 sources)gabapentinDrug Hkxpobp79-29-0573[facility] (1 source)No Known Medication Allergies; Translations: [No Known Medication Allergies]Propensity to adverse reactions (disorder)[facility] Medications Current Medications MedicationDrug Class(es)DatesSig (Normalized)Sig (Original)acetaminophen 325 mg oral tablet (20 sources)Start: 88-30-9498tvow 1 tablet by mouth every four hours as needed Start: 13-43-3730Xtposjb Refills(s) 0 Start Date: 03/20/23 Status: Orderedtake 1-2 capsules by mouth every six hours as neededacetaminophen (Tylenol) 325 MG capsule Take 1-2 capsules by mouth every 6 (six) hours if needed Activetake 1 tablet by mouth every six hours as neededacetaminophen (Tylenol) 325 mg tablet Take 1 tablet (325 mg) by mouth every 6 hours if needed for mild pain (1 - 3). [id number] 200 actuat albuterol 0.09 mg/actuat metered dose inhaler (20 sources)beta2-Adrenergic AgonistStart: 80-94-2926Afbjq: 20-34-1199ccnn 2 puff(s) by inhalation every four hoursalbuterol 90 mcg/actuation inhaler Inhale 2 puffs every 4 hours if needed. 06/14/2023 ActiveStart: 05-28-2023 End: 67-26-8189ggxv 2 puff(s) by mouth every four hours as neededAlbuterol Sulfate 90 mcg/actuation HFA aerosol inhaler Active 0 .ROUTE .COMPLEX 8.5 December 17, 2023 1:19pm INHALE 2 PUFFS BY MOUTH EVERY 4 HOURS NEEDED Complies with drug therapyStart: 05-28-2023 End: 97-52-5146cjyv 1 puff(s) by inhalation every four hoursAlbuterol Sulfate 90 mcg/actuation HFA aerosol inhaler Discontinued 2 PUFF INHALATION Every 4 hours May 28, 2023 1:00am May 28, 2023 3:06pmStart: 96-55-3730cuuumiunb Refills(s) 0 Start Date: 03/20/23 Status: OrderedStart: 07-95-6981lnnm 2 puff(s) by inhalation every four hoursalbuterol HFA 90 mcg/act inhaler Inhale 2 puffs every 4 (four) hours if needed 01/07/2023 Activetake 2 puff(s) by inhalation every four hours as neededAlbuterol Sulfate HFA 108 (90 Base) MCG/ACT 2 puff Inhalation every 4 hrs prn Activeamiodarone hydrochloride 200 mg oral tablet (14 sources)AntiarrhythmicStart: 47-22-4738mbsl 1 tablet by mouth once daily Start: 93-78-8742rvdw 200 mg by mouth twice mg, oral, 2 times daily, First dose (after last modification) on Fri05/28/24 at 2100, Phase II/On Unit Start: 81-77-0111fnup 1 tablet by mouth twice daily, then take 1 tablet by mouth once dailyamiodarone (Pacerone) 200 mg tablet Indications: Atrial fibrillation, persistent (Multi) Take 1 tablet (200 mg) by mouth 2 times a day. For 2 weeks (05/28/24 thru 06/10/24) then resume 1 tablet daily starting 06/11/24 14 tablet 05/28/2024 ActiveStart: 12-30-2023 End: 38-45-3363tlps 200 mg by mouth once pazlv126 mg, oral, Daily, First dose on Fri05/28/24 at 0900, Phase II/On UnitStart: 79-09-7337cbvf 1 tablet by mouth once dailyamiodarone 400 mg oral tablet 400 mg = 1 tab(s), Oral, BID, take 1 tab twice a day for 10 days, then take 1 tab once a day for 5 days, # 25 tab(s), Refills(s) 0, Pharmacy: [facility]/pharmacy #[id number], 178, cm, 12/30/23 14:47:00 EDT, Height/Length Dosing, 95.2, kg, 12/30/23 14:47:00 EDT, Weight Dosing Start Date: 12/30/23 Status: Orderedamphetamine aspartate 5 mg / amphetamine sulfate 5 mg / dextroamphetamine saccharate 5 mg / dextroamphetamine sulfate 5 mg oral tablet (11 sources)Central Nervous System Stimulanttake 1 tablet by mouth in the morningamphetamine-dextroamphetamine (Adderall) 20 MG tablet Take 20 mg by mouth in the morning and 20 mg before bedtime. Activeapixaban 5 mg oral tablet (20 sources)Factor Xa InhibitorStart: 84-99-9887bfkz 5 mg by mouth every twelve hours5 mg, oral, Every 12 hours scheduled (0630,1830), First dose on [place] 05/27/24 at 1830, Phase II/On UnitStart: 95-15-9854rciy 1 tablet by mouth twice daily Apixaban (Eliquis) 5 mg tablet Active 5 MG PO Twice daily November 06, 2023 12:00am Complies with drug therapyStart: 00-45-5959vsug 1 tablet by mouth twice dailyEliquis 5 mg oral tablet 5 mg = 1 tab(s), Oral, BID, # 60 tab(s), Refills(s) 3, Pharmacy: [facility]/pharmacy #[id number], 178, cm, 05/02/23 13:12:00 EST, Height/Length Dosing, 102, kg, 05/02/23 13:12:00 EST, Weight Dosing Start Date: 05/05/23 Status: OrderedARIPiprazole 10 mg oral tablet (14 sources)Atypical AntipsychoticStart: 65-18-6894cfnp 1 tablet by mouth at bedtimeARIPiprazole (Abilify) 10 MG tablet Take 10 mg by mouth at bedtime 11/13/2023 ActiveARIPiprazole (Abilify) 10 mg disintegrating tablet Dissolve 15 mg in the mouth once daily. Statesrecently increased to 15mg ( 10mg 1 1/2 tabs) in the mornings Activetake 1 tablet by mouth once daily at bedtime ARIPiprazole (Abilify) 10 mg disintegrating tablet Dissolve 1 tablet (10 mg) in the mouth once daily at bedtime. Activeaspirin 81 mg chewable tablet (15 sources)Platelet Aggregation Inhibitor, Nonsteroidal Anti-inflammatory Drug Start: 88-55-2139zbykgkv 81 MG chewable tablet Chew 81 mg 03/20/2023 Active atorvastatin 20 mg oral tablet (20 sources)HMG-CoA Reductase InhibitorStart: 54-54-5751ehhm 40 mg by mouth once daily40 mg, oral, Daily (629), First dose on Fri05/27/24 at 1645, Phase II/On UnitStart: 77-66-9802iaah 1 tablet by mouth once dailyAtorvastatin 40 mg tablet Active 40 MG PO Daily November 06, 2023 12:00am Complies with drug therapy busPIRone hydrochloride 10 mg oral tablet (20 sources)Start: 09-59-0492bmim 1 tablet by mouth three times dailyStart: 06-41-3378bthe 15 mg by mouth twice daily15 mg, oral, 2 times daily, First dose on Fri05/27/24 at 2100, Phase II/On UnitStart: 11-94-8640ciex 1 tablet by mouth in the morning, then take 1 tablet by mouth in the evening, then take 1 tablet by mouth at bedtimebusPIRone (Buspar) 5 MG tablet Take 5 mg by mouth in the morning and 5 mg in the evening and 5 mg before bedtime. 11/12/2023 ActiveStart: 85-15-4723yhzn 3 tablets by mouth twice dailybusPIRone (Buspar) 5 mg tablet Take 3 tablets (15 mg) by mouth 2 times a day. Recently increased 15mg twice daily 11/12/2023 ActiveStart: 11-12-2023 End: 60-61-5165cymf 1 tablet by mouth three times dailyBuspirone 5 mg Tablet Discontinued 5 MG PO Three times daily 90 30 0 November 12, 2023 12:00am January 17, 2025 2:49pmStart: 29-81-9776Nwxutmayn Active 10 MG PO TWICE DAILY 60 30 June 11, 2021 9:04am start daily at HS x1 week then bidDULoxetine 30 mg delayed release oral capsule (10 sources)Serotonin and Norepinephrine Reuptake InhibitorStart: 04-22-2023 End: 97-13-9032thvo 1 capsule by mouth once dailyDULoxetine (Cymbalta) [address] capsule Take 30 mg by mouth Daily 04/22/2023 03/02/2024 Discontinued(Side effects)FLUoxetine 20 mg oral capsule (16 sources)Serotonin Reuptake InhibitorStart: 11-27-2023 End: 12-80-0039bxbg 1 capsule by mouth in the morningFLUoxetine (PROzac) 20 MG capsule Take 20 mg by mouth in the morning. 11/27/2023 ActiveStart: 08-22-2020 End: 67-66-2705usqg 1 capsule by mouth once dailyFluoxetine (Prozac) 10 mg capsule Discontinued 10 MG PO DAILY August 22, 2020 9:15am February 12, 2021 8:50amgabapentin 100 mg oral capsule (9 sources)Anti-epileptic AgentStart: 03-20-2023 End: 10-04-3867jpeqsmxmwr (Neurontin) 100 MG capsule Refills(s) 0 03/20/2023 Activelosartan potassium 50 mg oral tablet (14 sources)Angiotensin 2 Receptor BlockerStart: 35-98-4249sayx 1 tablet by mouth once dailylosartan (Cozaar) 50 MG tablet Take 50 mg by mouth Daily 05/30/2023 ActiveStart: 13-91-3465egqp 1 tablet by mouth once dailylosartan 25 mg Tab 25 mg = 1 tab(s), Oral, Daily, # 30 tab(s), Refills(s) 3, Pharmacy: [facility]/pharmacy#[id number], 178, cm, 05/02/23 13:12:00 EST, Height/Length Dosing, 102, kg, 05/02/23 13:12:00 EST, WeightDosing Start Date: 05/05/23 Status: Ordered Methocarbamol (11 sources)Muscle RelaxantMethocarbamol (ROBAXIN IJ) Activemetoprolol tartrate 25 mg oral tablet (15 sources)beta-Adrenergic BlockerStart: 37-77-9340ynlxdykplt tartrate (Lopressor) 25 MG tablet Take 25 mg by mouth 03/20/2023 Activenicotine 2 mg chewing gum (5 sources)Cholinergic Nicotinic AgonistStart: 58-51-9247Ujtwm: 11-12-2023 End: 23-92-3002Ifodczjm (Polacrilex) 2 mg Gum Discontinued 2 MG BUCCAL Q2H as needed for Nicotine Cravings 20 0 November 12, 2023 12:00am January 17, 2025 2:49pmNo Name (No Known Home Meds) (1 source)Start: 79-18-3592Uj Name (No Known Home Meds) Active 0 March 12, 2021 8:12amOndansetron (1 source)Serotonin-3 Receptor AntagonistStart: 99-37-2273xazj 1 tablet by mouth every eight hours as neededondansetron (Zofran) tablet 4 mgoxyCODONE (11 sources)Opioid AgonistoxyCODONE HCl (ROXICODONE PO) ActivePolyethylene Glycols (11 sources)POLYETHYLENE GLYCOL 3350 PO Activeprazosin 1 mg oral capsule (4 sources)alpha-Adrenergic Blockertake 1 capsule by mouth once daily at bedtime prazosin (Minipress) 1 mg capsule Take 1 capsule (1 mg) by mouth once daily at bedtime. Activepregabalin 50 mg oral capsule (12 sources)Start: 03-09-2024 End: 99-13-3029bqbm 1 capsule by mouth in the morningpregabalin (Lyrica) 50 MG capsule Indications: Lumbar radiculopathy Take 1 capsule (50 mg) by mouthin the morning and 1 capsule (50 mg) in the evening and 1 capsule (50 mg) before bedtime. Do not start before March 09, 2024. 90 capsule 1 03/09/2024 05/08/2024 ActiveStart: 01-07-2024 End: 78-62-4390zwcv 1 capsule by mouth in the morning, then take 1 capsule by mouth in the evening, then take 1 capsule by mouth at bedtimepregabalin (Lyrica) 25 MG capsule Indications: Lumbar radiculopathy Take 1 capsule (25 mg) by mouth in the morning and 1 capsule (25 mg) in the evening and 1 capsule (25 mg) before bedtime. 90 capsule 1 01/07/2024 03/02/2024 Discontinued (Dose adjustment) sacubitril 24 mg / valsartan 26 mg oral tablet (20 sources)Angiotensin 2 Receptor BlockerStart: tablet, oral, Every 12 hours scheduled (0630,1830), First dose on [place] 05/27/24 at 1830, Phase II/On Unit, Contraindicated in combination with PAWEL inhibitors. Ensure a minimum of 36 hours between any PAWEL inhibitor dose and sacubitril-valsartan.Start: 06-14-2023 take 1 tablet by mouth twice dailySacubitril-Valsartan (Entresto) 24-26 mg tablet Active 1 TAB PO Twice daily November 06, 2023 12:00am Complies with drug therapysacubitril-valsartan (Entresto) 24-26 MG tablet Take 1 tablet by mouth in the morning and 1 tablet before bedtime. 1 TABLET . Activesertraline 50 mg oral tablet (18 sources)Serotonin Reuptake InhibitorStart: 11-06-2023 End: 77-46-9281wzqa 1 tablet by mouth once daily in the morningStart: 02-12-2021 End: 01-92-5081ueya 50 mg by mouth once dailySertraline Discontinued 50 MG PO daily February 12, 2021 9:45am March 12, 2021 9:01amspironolactone 25 mg oral tablet (12 sources)Aldosterone AntagonistStart: 26-02-7771xeou 1 tablet by mouth once dailyspironolactone 25 mg Tab 25 mg = 1 tab(s), Oral, Daily, # 30 tab(s), Refills(s) 6, Pharmacy: [facility]/pharmacy #[id number], 178, cm, 05/30/23 15:00:00 EST, Height/Length Dosing, 101.3, kg, 05/30/23 15:00:00 EST, Weight Dosing Start Date: 05/30/23 Status: Ordered Completed/Discontinued Medications MedicationDrug Class(es)DatesSig (Normalized)Sig (Original)benzocaine 140 mg/ml / butamben 20 mg/ml / tetracaine 20 mg/ml mucosal spray (2 sources)Jeanie Local Anesthetic, Standardized Chemical AllergenStart: 05-27-2024 End: 82-12-5670Fe needed, Starting on Fri05/27/24 at 0905, IntraprocedureStart: 03-10-2024 End: 23-65-1732Vf needed, Starting on Fri03/10/24 at 1340, Intraprocedure carvedilol 6.25 mg oral tablet (20 sources)alpha-Adrenergic Larry, beta-Adrenergic BlockerStart: 08-11-2023 End: 16-87-7572wbwp 1 tablet by mouth twice dailyCarvedilol 6.25 mg tablet Discontinued 6.25 MG PO Twice daily November 06, 2023 12:00am January 17, 2025 2:49pmStart: 82-92-6343wibl 1 tablet by mouth every twelve hourscarvedilol (Coreg) 3.125 mg tablet Take 1 tablet (3.125 mg) by mouth every 12 hours. 07/28/2023 ActiveStart: 31-02-3125yvuv 2 tablets by mouth twice dailycarvedilol (Coreg) 3.125 mg tablet Take 2 tablets (6.25 mg) by mouth 2 times a day. 07/28/2023 ActiveStart: 27-79-8662xdtx 1 tablet by mouth twice dailycarvedilol 3.125 mg Tab 3.125 mg = 1 tab(s), Oral, BID, # 60 tab(s), Refills(s) 3, Pharmacy: [facility]/pharmacy #[id number], 178, cm, 05/02/23 13:12:00 EST, Height/Length Dosing, 102, kg, 05/02/23 13:12:00 EST, Weight Dosing Start Date: 05/05/23 Status: OrderedStart: 69-35-7958wrla 1 tablet by mouth twice dailycarvedilol 3.125 mg Tab 3.125 mg = 1 tab(s), Oral, BID, # 60 tab(s), Refills(s) 3, Pharmacy: [facility]/pharmacy #[id number], 178, cm, 05/02/23 13:12:00 EST, Height/Length Dosing, 102, kg, 05/02/23 13:12:00 EST, Weight Dosing Start Date: 05/05/23 Status: Orderedchlorhexidine gluconate 40 mg/ml medicated liquid soap (1 source)Start: 05-27-2024 End: 01-61-9410ampkk 1 dose topically onceTopical, Once, On [place] 05/27/24 at 0800, For 1 dose, Preprocedure, For pre-op skin preparationdronedarone 400 mg oral tablet (3 sources)AntiarrhythmicStart: 12-26-2023 End: 14-23-4556jjmb 1 tablet by mouth twice dailydronedarone (Multaq) 400 mg tablet Indications: Atrial fibrillation, unspecified type (Multi) Take 1 tablet (400 mg) by mouth 2 times a day. 60 tablet 3 12/26/2023 03/10/2024 Discontinued (Therapy completed)escitalopram 10 mg oral tablet (3 sources)Serotonin Reuptake InhibitorStart: 08-03-2020 End: 72-98-5799muxx 1 tablet by mouth once dailyEscitalopram Oxalate (Lexapro) 10 mg tablet Discontinued 10 MG PO DAILY August 03, 2020 11:00am 2020 9:15am1 ml fentaNYL 0.05 mg/ml injection (1 source)Opioid AgonistStart: 05-27-2024 End: 96-37-0162Lq needed, Starting on Fri05/27/24 at 0917, Intraprocedureiohexol (OMNIPaque) 350 mg iodine/mL solution 80 mL (1 source)Start: 03-05-2024 End: mL, intravenous, Once in imaging, Starting on Fri03/05/24 at 1238, For 1 doselidocaine hydrochloride 0.02 mg/mg topical gel (2 sources)Antiarrhythmic, Amide Local AnestheticStart: 05-27-2024 End: 18-88-8796Jd needed, Starting on Fri05/27/24 at 0906, IntraprocedureStart: 03-10-2024 End: 70-77-1298Qh needed, Starting on Fri03/10/24 at 1342, Intraprocedure5 ml midazolam 1 mg/ml injection (1 source)BenzodiazepineStart: 05-27-2024 End: 12-68-5916Xr needed, Starting on Fri05/27/24 at 0917, Intraprocedure polymyxin b 58501 unt/ml / trimethoprim 1 mg/ml ophthalmic solution (3 sources)Dihydrofolate Reductase Inhibitor Antibacterial, Polymyxin-class AntibacterialStart: 12-24-2023 End: 43-82-9510Oqffugawp B Sulf-Trimethoprim 10,000 unit- 1 mg/mL drops Discontinued 1 DROPS OPHTHALMIC Every three hours 10 7 0 December 24, 2023 12:00am January 17, 2025 2:49pm while awake; do not exceed 6 doses in 24 hours Problems Active Problems Problem ClassificationProblemDateDocumented DateEpisodic/ChronicAnxiety disorders (20 sources)Posttraumatic stress disorder; Translations: [Post-traumatic stress disorder, unspecified]Onset: 85-15-7147VwrxmjjMxkjjp (20 sources)Exacerbation of mild persistent asthma; Translations: [Mild persistent asthma with (acute) exacerbation]ChronicAttention-deficit, conduct, and disruptive behavior disorders (3 sources)Attention deficit hyperactivity disorder; Translations: [Attention- deficit hyperactivity disorder, unspecified type]19-22-2963DjkymifMwiwbaaat and vision defects (6 sources)Blurring of visual image; Translations: [Other visual disturbances] 22-03-9475DnyhjsmaYhpsksx dysrhythmias (20 sources)Atrial fibrillation; Translations: [Unspecified atrial fibrillation] Onset: 853030-88-3514OwytvggDwqzgnlw atherosclerosis and other heart disease (2 sources)Coronary atherosclerosis; Translations: [Atherosclerotic heart disease of [place] coronary artery without angina pectoris]Onset: 08-11-2023 ChronicCrushing injury or internal injury (3 sources)Rupture of spleen; Translations: [Other injury of spleen, initial encounter]EpisodicDisorders usually diagnosed in infancy, childhood, or adolescence (1 source)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 childhood and adolescence; Translations: [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 childhood and adolescence]Onset: 06-86-4987DskubvzTxcehkpcp hypertension (20 sources)Hypertensive -32-7669LzbmkgyIosalhicfhkn; infection of eye (except that caused by tuberculosis or sexually transmitteddisease) (4 sources)Acute conjunctivitis; Translations: [Unspecified acute conjunctivitis, left eye]71-77-4394EblvxdeiBrlk disorders (20 sources)Major depressive disorder; Translations: [Major depressive disorder, single episode, unspecified]Onset: 94-54-9641RclctubXkgt disorders (1 source)Mood disorders; Translations: [Depression, unspecified]Onset: 90-85-7425Vkpqb connective tissue disease (2 sources)Swelling of finger ; Translations: [Other specified soft tissue disorders]EpisodicOther connective tissue disease (6 sources)Other specified soft tissue disorders; Translations: [Swelling of limb]Onset: 62-28-1801DgkskrfaUtsrm connective tissue disease (2 sources)Pain in right lower leg; Translations: [Pain in right lower leg] Onset: 64-89-2848NmofgccuZwvny connective tissue disease (1 source)Pain in leg, unspecified; Translations: [Pain in leg, unspecified] Onset: 20-32-9034EzzvcordDbehi connective tissue disease (4 sources)Other symptoms and signs involving the musculoskeletal system; Translations: [Other musculoskeletalsymptoms referable to limbs]01-06-2024 EpisodicOther connective tissue disease (6 sources)Increased muscle tone; Translations: [Other specified disorders of muscle]46-91-2386AwhazcvkKolmk ear and sense organ disorders (3 sources)Sensorineural hearing loss, bilateral; Translations: [Sensorineural hearing loss, bilateral]ChronicOther ear and sense organ disorders (3 sources)Tinnitus; Translations: [Tinnitus, unspecified ear]EpisodicOther ear and sense organ disorders (1 source)Impacted cerumen, bilateralEpisodicOther lower respiratory disease (11 sources)Dyspnea on exertion; Translations: [Shortness of breath]Onset: 502355-39-4643OyidmqspIdjkp nervous system disorders (14 sources)Bilateral carpal tunnel syndrome; Translations: [Carpal tunnel syndrome, bilateral upper limbs]Onset: 905697-67-2737PsmsawjHllwk nervous system disorders (6 sources)Impaired cognition; Translations: [Other symptoms and signs involving cognitive functions and awareness]11-42-5178BqceqbfgWzyvm non-traumatic joint disorders (3 sources)Arthralgia of the pelvic region and thigh; Translations: [Pain in right hip]EpisodicOther non-traumatic joint disorders (3 sources)Hip pain; Translations: [Pain in right hip]EpisodicOther nutritional; endocrine; and metabolic disorders (3 sources)Body mass index 25-29 - overweight; Translations: [Body mass index (BMI) 25.0-25.9, adult]EpisodicOther nutritional; endocrine; and metabolic disorders (5 sources)Body mass index (BMI) 25.0-25.9, adult; Translations: [Body Mass Index 25.0-25.9, adult]EpisodicOther upper respiratory disease (3 sources)Deviated nasal septum; Translations: [Deviated nasal septum]Episodic Carmelita-; endo-; and myocarditis; cardiomyopathy (except that caused by tuberculosis or sexually transmitted disease) (4 sources)Cardiomyopathy; Translations: [Other cardiomyopathies]Onset: 31-17-8796QimiibhFsshajlo codes; unclassified (3 sources)Chews tobacco ; Translations: [Tobacco use]EpisodicResidual codes; unclassified (2 sources)Insomnia; Translations: [Insomnia, unspecified]EpisodicResidual codes; unclassified (2 sources)Insomnia, unspecified; Translations: [Insomnia, unspecified]Episodic Residual codes; unclassified (1 source)Body mass index 20-24 - normal; Translations: [Body mass index (BMI) 24.0-24.9, adult]EpisodicResidual codes; unclassified (1 source)Body mass index (BMI) 24.0-24.9, adult; Translations: [Body Mass Index between 19-24, adult]EpisodicResidual codes; unclassified (15 sources)Memory jynqcepdiq64-44-4203TiyisvunJnje and subcutaneous tissue infections (2 sources)Cellulitis of right lower limb; Translations: [Cellulitis of right lower limb]Onset: 32-22-8520PvtfyfgpAwbhtcxznhk; intervertebral disc disorders; other back problems (12 sources)Degeneration of cervical intervertebral disc; Translations: [Other cervical disc degeneration, unspecified cervical region]Onset: 07-07-2023 20-19-6949DpszkuiTsdnunrwy-related disorders (20 sources)Nicotine dependence; Translations: [Nicotine dependence, cigarettes, uncomplicated]Onset: 02-84-4034AbghuruUajfmtp on above:Added secondary to documentation in Social History.Suicide and intentional self-inflicted injury (11 sources)Suicidal thoughts; Translations: [Suicidal ideations]11-06-2023 EpisodicSystemic lupus erythematosus and connective tissue disorders (15 sources)Autoimmune utxetws92-74-1977OzoutgfPqfwzjnmkrlv (7 sources)Tobacco use; Translations: [Tobacco use disorder]Onset: 04-28-2017 EpisodicUnclassified (1 source)Emphysema, unspecified / J43.9(ICD-10)Onset: 01-73-7168Fygptjmrdbcp (1 source)Encounter for preprocedural laboratory examination / Z01.812(ICD-10) Onset: 73-04-2199Yiaoaapaicjh (1 source)Encounter for other preprocedural examination / Z01.818(ICD-10)Onset: 19-22-4082Uvcdthzeqdwf (2 sources)Unilateral primary osteoarthritis, right hip / M16.11(ICD-10)Onset: 97-29-4695Uqbyszqzgnpv (2 sources)Tobacco use / Z72.0(ICD-10)Onset: 95-50-5160Mfqybadowunp (1 source)Carrier or suspected carrier of methicillin resistant Staphylococcus aureus / Z22.322(ICD-10)Onset: 58-27-7926Txumytsvxwvd (2 sources)Please call if you need to reschedule your intake assessment. Unclassified (2 sources)Call with any medical concerns. Past or Other Problems Problem ClassificationProblemDateDocumented DateEpisodic/Chronic Administrative/social admission (20 sources)First encounter by subject; Translations: [Persons encountering health services in other specified circumstances]Onset: EpisodicImmunizations and screening for infectious disease (1 source)Carrier or suspected carrier of Methicillin resistant Staphylococcus aureus; Translations: [Carrieror suspected carrier of methicillin resistant Staphylococcus aureus]Onset: 19-66-1028WweqlxtpIlmhsan and fatigue (16 sources)Fatigue; Translations: [Other fatigue]Onset: 49-95-4144NttqtqrxVupkb lower respiratory disease (4 sources)Shortness of breath; Translations: [Shortness of breath]Onset: 50-44-7796DdbmszesFlsoi nervous system disorders (12 sources)Numbness and tingling sensation of skin; Translations: [Anesthesia of skin]Onset: 119576-50-4480GjadmhanHcwph nervous system disorders (12 sources)Paresthesia; Translations: [Paresthesia of skin]Onset: 07-07-2023 32-56-8343QhswzcgtRdoaa nutritional; endocrine; and metabolic disorders (7 sources)Overweight in adulthood with body mass index of 25 or more but less than 30; Translations: [Body mass index (BMI) 26.0-26.9, adult]Onset: 12-26-2023 26-81-2986XjoxnnaiTvdjztjkmvr; intervertebral disc disorders; other back problems (20 sources)Radiculopathy, cervical region; Translations: [Spinal stenosis, cervical region]Onset: 34-95-3789XplwuydlWtweikkkthxz (1 source)Unilateral primary osteoarthritis, right hip; Translations: [Unilateral primary osteoarthritis, right hip]Onset: 48-21-0099Pdwajjuegtzo (1 source)Encounter for preprocedural laboratory examination; Translations: [Encounter for preprocedural laboratory examination]Onset: 04-28-2017 Unclassified (1 source)Lumbar pain M54.50 Results Test NameValueInterpretationReference RangeFacilityECG 12 lead ECGon 01-18-2025 ECG 12 [facility]PROM[facility] [place] [address] [place], [place] [id number] Electrocardiograph Report Signed Patient: Juan Carlos Noguera MR#: [id number] 34 : 1970 Acct:[id number] Age/Sex: 54 / M ADM Date: 01/17/25 Loc: Room: [address] [place] [address] Type: ADM IN Attending Dr: Lino Floyd MD Ordering Provider: Lino Floyd MD Date of Service: 01/18/25 ECG/ECG 12 lead ECG: new admission Copies to: Test Reason : Blood Pressure : */* mmHG Vent. Rate : 73 BPM Atrial Rate : 73 BPM P-R Int : 162 ms QRS Dur : 82 ms QT Int : 400 ms P-R-T Axes : 82 71 68 degrees QTcB Int : 440 ms Normal sinus rhythm Normal ECG When compared with ECG of 07-Nov-2023 09:15, Sinus rhythm has replaced Atrial fibrillation Vent. rate has decreased by 39 bpm Questionable change in QRS axis Nonspecific T wave abnormality no longer evident in Inferior leads Confirmed by Salvador Lira ([id number]) on 01/18/2025 5:07:29 PM Referred By: Electronically Signed By: Salvador Lira Transcribed By: MUS Signed By Salvador Lira MD 01/18/25 1707NoDuke Health Physician GroupLipid Panelon 01-18-2025 Cholesterol [Mass/Vol]144 mg/aXTcvpnz797-222Das [facility] Physician GroupComment on above:Result Comment: Chol less than 200 mg/dl low risk Chol 201-239 mg/dl borderline risk Chol 240 mg/dl and greater high riskPerformed By: #### LIPID, TSH3 wRFLX, [id number] #### [place] [id number] USACholesterol in HDL [Mass/Vol]43 mg/gRBlwtob21-14Mxg [facility] Physician GroupComment on above:Result Comment: HDL CHOL ATP-III CLASSIFICATION Cardiovascular Risk HDL > or equal to 60 mg/dL LOW HDL < 40 mg/dL HIGHPerformed By: #### LIPID, TSH3 wRFLX, [id number] #### [facility] [address] [place] [address] USACholesterol.total/Cholesterol in HDL [Mass ratio]3.3 {ratio}Normal<5.0The [facility] Physician GroupComment on above:Performed By: #### LIPID, TSH3 wRFLX, [id number] #### [facility] [address] [place] [address] USALDL Cholesterol,Pmgufxilly89 mg/dLNormal0-100The [facility] Physician GroupComment on above:Result Comment: LDL ATP III CLASSIFICATION LDL less than 100 mg/dL Optimal LDL 100-129 mg/dL Near or above optimal LDL 130-159 mg/dL Borderline high LDL 160-189 mg/dL High LDL greater than 189 mg/dL Very highPerformed By: #### LIPID, TSH3 wRFLX, [id number] #### [facility] [address] [place] [address] USATriglyceride w/Hftmih02 mg/dLNormal0-149The [facility] Physician GroupComment on above:Result Comment: TRIG ATP III CLASSIFICATION TRIG less than 150 mg/dL Normal TRIG 150-199 mg/dL Borderline high TRIG 200-500 mg/dL High TRIG greater than 500 mg/dL Very high Standard traceable to the Center for Disease Conrtrol and Prevention (CDC) test method.Performed By: #### LIPID, TSH3 wRFLX, [id number] #### [facility] [address] [place] [address] USAVLDL RBGLLXHSSGX56 mg/dLNormalThe [facility] Physician GroupComment on above:Performed By: #### LIPID, TSH3 wRFLX, [id number] #### [facility] [address] [place] [address] USAThyroid Stim Hormone w/Rflxon 09-29-8215Tsfdivt Stim Hormone w/Rflx1.21 u[iU]/mLNormal0.45-5.33The [facility] Physician GroupComment on above:Performed By: #### LIPID, TSH3 wRFLX, [id number] #### [facility] [address] [place] [address] USAVitamin D 25 Hydroxy Totalon 13-94-6197Ggnzans D 25 Hydroxy Total20.9 ng/rJKsl05-722Ctg [facility] Physician GroupComment on above: Result Comment: VITAMIN D STATUS 25(OH)VITAMIN D RANGE (ng/mL) Deficient <20 Insufficient 20 to <30 Sufficient 30 to 100 Reference: Zaida MF,[place], Sindi RAMACHANDRAN, et al. Evaluation,treatment, and prevention of vitamin D deficiency; an Endocrine Society clinical practice guideline. JCEM. 2010; 96(7):1911-30. PERFORMED BY: [place] [address] PATHOLOGIST [employer] BUILDING ENGINEER KATINA LYONS M.D.Performed By: #### LIPID, TSH3 wRFLX, [id number] #### [facility] [address] [place] [address] USAAlbumin [Mass/volume] in Serum or Plasma by Bromocresol green (BCG) dye binding methoOrdered By: Jay Alvarez on 54-99-9673Whfomkj BCG dye [Mass/Vol]4.7 g/dL3.5-5.7FSelect Medical TriHealth Rehabilitation HospitalAmphetamine Screen Ql (U)Ordered By: Jay Alvarez on 38-72-3824Cqrrnqowxxxw Ql (U)NegativeNegative [facility] CenterBarbiturates [Presence] in Urine by Screen methodOrdered By: Jay Alvarez on 31-98-5653Ohzzeqcllpdw Screen Ql (U)Negative NegativeAshtabula County Medical CenterBenzodiazepines Screen Ql (U)Ordered By: Jay Alvarez on 17-17-2786Cywbedvxaemqxdp Ql (U)NegativeNegativeAshtabula County Medical CenterBenzoylecgonine [Presence] in Urine by Screen method Ordered By: Jay Alvarez on 58-30-3545Ljyfmyanrzwbmop Screen Ql (U)Negative NegativeFirelands Regional Medical CenterBilirubin Test strip Ql (U)Ordered By: Jay Alvarez on 44-02-9213Vkgrkjjpi Ql (U)NegativeNegativeAshtabula County Medical CenterCannabinoids [Presence] in Urine by Screen methodOrdered By: Jay Alvarez on 60-24-4549Xjzpoejkqbny Screen Ql (U)NegativeNegOhio State Harding HospitalComment on above:These are unconfirmed results and should not be used for legal purposes. Drug Cut-Off Concentration: AMPH 1000 ng/mL WILLIAM 200 ng/mL SALIMA 200 ng/mL COCM 300 ng/mL OP 300 ng/mL PCP 25 ng/mL THC 20 ng/mLComplete Blood Count Auto DiffOrdered By: Jay Alvarez on 01-17-2025 Basophils (Bld) [#/Vol]0.2 10*3/uLNormal0.0-0.2FSelect Medical TriHealth Rehabilitation Hospital Comment on above:Result Comment: PERFORMED BY: [place] [address] PATHOLOGIST [employer] BUILDING ENGINEER KATINA LYONS M.D.Performed By: #### ETOH, CMP, CBC #### [facility] [address] [place] [address] USABasophils/100 WBC (Bld)1.5 %Normal.[facility] CenterComment on above:Performed By: #### ETOH, CMP, CBC #### [facility] [address] [place] [address] USAEosinophils (Bld) [#/Vol]0.1 10*3/uLNormal0.0-0.45 [facility] CenterComment on above:Performed By: #### ETOH, CMP, CBC #### [facility] [address] [place] [address] USAEosinophils/100 WBC (Bld)0.7 %Normal.[facility] Medical CenterComment on above:Performed By: #### ETOH, CMP, CBC #### [facility] [address] [place] [address] USAErythrocyte distribution width (RBC) [Ratio]15.3 %High 12.0-14.8[facility] CenterComment on above:Performed By: #### ETOH, CMP, CBC #### [place] [address] USAHematocrit (Bld) [Volume fraction]42.2 %Bwjgxb06.8-50.0 [facility] CenterComment on above:Performed By: #### ETOH, CMP, CBC #### [place] [address] USAHemoglobin (Bld) [Mass/Vol]14.5 g/dAIitlmo18.0-17.0 [facility] CenterComment on above:Performed By: #### ETOH, CMP, CBC #### [place] [address] USALymphocytes (Bld) [#/Vol]2.9 10*3/uLNormal1.00-4.8 [facility] CenterComment on above:Performed By: #### ETOH, CMP, CBC #### [place] [address] USALymphocytes/100 WBC (Bld)23.2 %Normal.[facility] CenterComment on above:Performed By: #### ETOH, CMP, CBC #### [place] [address] USAMCH (RBC) [Entitic mass]31.8 rrSerbvn31.5-35.2FSelect Medical TriHealth Rehabilitation HospitalComment on above:Performed By: #### ETOH, CMP, CBC #### [place] [address] USAMCV (RBC) [Entitic vol]92.7 oOYzecvn38.5-101[facility] CenterComment on above:Performed By: #### ETOH, CMP, CBC #### [place] [address] USAMonocytes (Bld) [#/Vol]1.3 10*3/uLHigh0.0-0.8[facility] CenterComment on above:Performed By: #### ETOH, CMP, CBC #### [place] [address] USAMonocytes/100 WBC (Bld)10.5 %Normal.[facility] Medical CenterComment on above:Performed By: #### ETOH, CMP, CBC #### [facility] [address] [place] [address] USANeutrophils (Bld) [#/Vol]8.1 10*3/uLHigh1.8-7.7FSelect Medical TriHealth Rehabilitation HospitalComment on above:Performed By: #### ETOH, CMP, CBC #### [facility] [address] [place] [address] USANeutrophils/100 WBC (Bld)64.1 %Normal.[facility] CenterComment on above:Performed By: #### ETOH, CMP, CBC #### [place] [address] USAPlatelet mean volume (Bld) [Entitic vol]7.5 fLNormal 6.6-10.1FSelect Medical TriHealth Rehabilitation HospitalComment on above:Performed By: #### ETOH, CMP, CBC #### [place] [address] USAPlatelets (Bld) [#/Vol]373 10*3/sXBsmyff910-081CsbtrzqybAshtabula County Medical CenterComment on above:Performed By: #### ETOH, CMP, CBC #### [place] [address] USARBC (Bld) [#/Vol]4.56 10*6/uLNormal3.90-5.60[facility] CenterComment on above:Performed By: #### ETOH, CMP, CBC #### [place] [address] USAWBC (Bld) [#/Vol]12.6 10*3/uLHigh4.1-10.5FSelect Medical TriHealth Rehabilitation HospitalComment on above:Performed By: #### ETOH, CMP, CBC #### [place] [address] USAComplete Blood Count Auto Diffon 85-62-7409Nidg Corpuscular HGB Conc34.3 g/wNXkpjff27.5-35.6The [facility] Physician GroupComment on above:Performed By: #### ETOH, CMP, CBC #### [place] [address] USAMonocytes/100 WBC (Bld)16.07 %Normal0.00-20.00The [facility] Physician GroupComment on above:Performed By: #### ETOH, CMP, CBC #### [place] [address] USANRBC%0.1 /100{WBC}Normal0-0.5The [facility] Physician [facility] Comment on above:Performed By: #### ETOH, CMP, CBC #### [place] [address] USAWhite Blood Count12.6 [CFU]/mLHigh4.1-10.5The [facility] Physician [facility] CenterComment on above:Performed By: #### ETOH, CMP, CBC #### [place] [address] USAComprehensive Metabolic Panelon 94-46-9784Qkaxqar [Mass/Vol]4.7 g/dLNormal3.5-5.7The [facility] Physician [facility] CenterComment on above: Performed By: #### ETOH, CMP, CBC #### [place] [address] USACreatinine Clr Calc Ygvkuqdy53.11NormalThe [facility] Physician GroupComment on above:Result Comment: PERFORMED BY: [place] [address] PATHOLOGIST [employer] BUILDING ENGINEER KATINA LYONS M.D.Performed By: #### ETOH, CMP, CBC #### [place] [address] USAGFR/1.73 sq M.predicted MDRD (S/P/Bld) [Vol rate/Area] mL/min/{1.73_m2}NormalThe [facility] Physician [facility] CenterComment on above:Performed By: #### ETOH, CMP, CBC #### [place] [address] USAComprehensive Metabolic PanelOrdered By: Jay Alvarez on 62-05-2463Dvxplng/Globulin [Mass ratio]1.7 {ratio}NormalAshtabula County Medical CenterComment on above:Performed By: #### ETOH, CMP, CBC #### [facility] [address] [place] [address] USAALP [Catalytic activity/Vol]64 U/GXaioaw32-249IwsgfhxnnAshtabula County Medical CenterComment on above:Performed By: #### ETOH, CMP, CBC #### [facility] [address] [place] [address] USAALT [Catalytic activity/Vol]40 U/LNormal7-52[facility] Medical CenterComment on above:Performed By: #### ETOH, CMP, CBC #### [facility] [address] [place] [address] USAAnion gap [Moles/Vol]9.9 mmol/LNormal6.0-15.0[facility] CenterComment on above:Performed By: #### ETOH, CMP, CBC #### [facility] [address] [place] [address] USAAST [Catalytic activity/Vol]26 U/AOsfyhe57-38RdfbjsdwoAshtabula County Medical CenterComment on above:Performed By: #### ETOH, CMP, CBC #### [facility] [address] [place] [address] USABilirubin [Mass/Vol]0.5 mg/dLNormal0.3-1.0[facility] CenterComment on above:Performed By: #### ETOH, CMP, CBC #### [facility] [address] [place] [address] USACalcium [Mass/Vol]9.6 mg/dLNormal8.6-10.3FSelect Medical TriHealth Rehabilitation HospitalComment on above:Performed By: #### ETOH, CMP, CBC #### [facility] [address] [place] [address] USAChloride [Moles/Vol]99 mmol/PUifgnn46-880GhmmmgqadAshtabula County Medical CenterComment on above:Performed By: #### ETOH, CMP, CBC #### [facility] [address] [place] [address] USACO2 [Moles/Vol]31.2 mmol/LHigh21.0-31.0[facility] CenterComment on above:Performed By: #### ETOH, CMP, CBC #### [facility] [address] [place] [address] USACreatinine [Mass/Vol]1.03 mg/dLNormal0.70-1.30[facility] CenterComment on above:Performed By: #### ETOH, CMP, CBC #### [facility] [address] [place] [address] USAGlobulin (S) [Mass/Vol]2.8 g/dLNormalAshtabula County Medical CenterComment on above:Performed By: #### ETOH, CMP, CBC #### [facility] [address] [place] [address] USAGlucose [Mass/Vol]89 mg/bFZwhtzf18-850NqvpprgltAshtabula County Medical CenterComment on above:Result Comment: Random Glucose Reference Range is dependent on time and content of last meal. Glucose of more than 200 mg/dL in a nonstressed, ambulatory subject supports the diagnosis of Diabetes Mellitus. ADA recommended reference rangePerformed By: #### ETOH, CMP, CBC #### [facility] [address] [place] [address] USAADA recommended reference rangeRandom Glucose Reference Range is dependent on time and content of last meal. Glucose of more than 200 mg/dL in a nonstressed, ambulatory subject supports the diagnosisof Diabetes Mellitus.Potassium [Moles/Vol]4.1 mmol/LNormal3.5-5.1FSelect Medical TriHealth Rehabilitation HospitalComment on above:Performed By: #### ETOH, CMP, CBC #### [facility] [address] [place] [address] USAProtein [Mass/Vol]7.5 g/dLNormal6.4-8.9[facility] CenterComment on above:Performed By: #### ETOH, CMP, CBC #### [facility] [address] [place] [address] USASodium [Moles/Vol]136 mmol/RUwqvnb638-162OdnqjyxoaAshtabula County Medical CenterComment on above:Performed By: #### ETOH, CMP, CBC #### [facility] [address] [place] [address] USAUrea nitrogen [Mass/Vol]10 mg/dLNormal7-[facility] Medical CenterComment on above:Performed By: #### ETOH, CMP, CBC #### [place] [address] USADrug Screen,Urineon 74-01-5350Getlcukwebf Screen,Urine NegativeNormalNegativeThe [facility] Physician GroupComment on above:Performed By: #### URDS, UA #### [place] [address] USABarbiturate Screen,UrineNegativeNormalNegativeThe [facility] Physician GroupComment on above:Performed By: #### URDS, UA #### [place] [address] USABenzodiazepines Screen,UrineNegativeNormalNegativeH. [facility] Physician GroupComment on above:Performed By: #### URDS, UA #### [place] [address] USACannabinoid Screen,UrineNegativeNormalNegativeH. Lee M[facility] Physician GroupComment on above:Result Comment: These are unconfirmed results and should not be used for legal purposes. Drug Cut-Off Concentration: AMPH 1000 ng/mL WILLIAM 200 ng/mL SALIMA 200 ng/mL COCM 300 ng/mL OP 300 ng/mL PCP 25 ng/mL THC 20 ng/mL PERFORMED BY: [place] [address] PATHOLOGIST [employer] BUILDING ENGINEER KATINA LYONS M.D.Performed By: #### URDS, UA #### [place] [address] USACocaine Screen,UrineNegativeNormalNegativeThe [facility] Physician GroupComment on above:Performed By: #### URDS, UA #### [place] [address] USAOpiate Screen,UrineNegativeNormalNegativeH. [facility] M[facility] Physician GroupComment on above:Performed By: #### URDS, UA #### [place] [address] USAPhencyclidine Screen,UrineNegativeNormalNegativeThe [facility] Physician [facility] CenterComment on above:Performed By: #### URDS, UA #### [facility] [address] [place] [address] USAEthyl Alcohol ProfileOrdered By: Jay Alvarez on 27-87-6087Lstytxb [Mass/Vol]mg/dLNoCleveland Clinic Medina HospitalComment on above:Performed By: #### ETOH, CMP, CBC #### [place] [address] USAEthyl Alcohol Profileon 64-76-7012Pnnrwlg EthanolNot performedNoDuke Health Physician [facility] Health CenterComment on above:Result Comment: PERFORMED BY: [place] [address] PATHOLOGIST GRE[employer] BUILDING ENGINEER KATINA LYONS M.D.Performed By: #### ETOH, CMP, CBC #### [place] [address] USAGlomerular filtration rate [Volume Rate/Area] in Serum, Plasma or Blood by CreatinineOrdered By: Jay Alvarez on 93-71-5994Itpklywtvk filtration rate [Volume Rate/Area] in Serum, Plasma or Blood by Creatinine> 60.0 mL/MinAshtabula County Medical CenterGlucose [Mass/volume] in Urine by Test stripOrdered By: Jay Alvarez on 63-28-8574Gncrujq Test strip (U) [Mass/Vol] Normal mg/dLNoCleveland Clinic Medina HospitalHemoglobin Test strip Ql (U) Ordered By: Jay Alvarez on 85-25-4218Ktgagfobsy Ql (U)NegativeNegativeAshtabula County Medical CenterLeukocytes [#/volume] corrected for nucleated erythrocytes in Blood by Automated counOrdered By: Jay Alvarez on 75-14-6172EPG corrected for nucl RBC Auto (Bld) [#/Vol]12.6 10*3/uLHigh4.1-10.5FSelect Medical TriHealth Rehabilitation HospitalMCHC Auto (RBC) [Mass/Vol]Ordered By: Jay Alvarez on 31-70-6681NZVF (RBC) [Mass/Vol]34.3 g/dL32.5-35.6FSelect Medical TriHealth Rehabilitation HospitalMonocyte distribution width [Entitic volume] in Blood by AutomatedOrdered By: Jay Alvarez on 96-42-6875Yzxmdlgx distribution width Auto (Bld) [Entitic vol]16.07 %0.00-20.00[facility] Medical CenterNitrite Test strip Ql (U) Ordered By: Jay Alvarez on 27-64-9176Mdlorpr Ql (U)NegativeNegativeAshtabula County Medical CenterNo Panel InformationOrdered By: Jay Alvarez on 53-28-7381Igujghyu Creatinine Clearance (Chem93.11[facility] Medical CenterNucleated erythrocytes [Presence] in Blood by Automated countOrdered By: Jay Alvarez on 54-83-0658Btnxfumxd RBC Auto Ql (Bld)0.1 /100{WBC}0-0.5FSelect Medical TriHealth Rehabilitation HospitalOpiates [Presence] in Urine by Screen methodOrdered By: Jay Alvarez on 36-35-1901Flbzgeu Screen Ql (U)NegativeNegOhio State Harding HospitalPhencyclidine Screen Ql (U)Ordered By: Jay Alvarez on 38-18-3433Lchbubgttnwmn Ql (U)NegativeNegOhio State Harding Hospital Protein Test strip (U) [Mass/Vol]Ordered By: Jay Alvarez on 46-47-4004Ywhuleb (U) [Mass/Vol]NegativeNegPeoples Hospitalerum or plasma ethanol measurement (mass/volume)Ordered By: Jay Alvarez on 17-27-0824Ibjslct [Mass/Vol]TNPAshtabula County Medical CenterComment on above:Test not performedSpecific gravity Test strip (U) [Rel density]Ordered By: Jay Alvarez on 74-56-5866Fjvkjljq gravity (U) [Rel density]1.0051.001-1.030[facility] Medical CenterUrinalysisOrdered By: Jay Alvarez on 01-17-2025 Appearance (U)ClearNormalClearAshtabula County Medical CenterComment on above: Order Comment: Name Collection Type:: Clean-Voided MidstreamPerformed By: #### URDS, UA #### [facility] [address] [place], [place] [address] USAColor (U)ColorlessNormalYellowAshtabula County Medical CenterComment on above:Order Comment: Name Collection Type:: Clean-Voided MidstreamPerformed By: #### URDS, UA #### [facility] [address] [place] [address] USAKetones Ql (U)NegativeNormalNegativeAshtabula County Medical CenterComment on above:Order Comment: Name Collection Type:: Clean- Voided MidstreamPerformed By: #### URDS, UA #### [facility] [address] [place] [address] USALeukocyte esterase Test strip Ql (U)NegativeNormalNegative [facility] Medical CenterComment on above:Order Comment: Name Collection Type:: Clean-Voided MidstreamPerformed By: #### URDS, UA #### [place] [address] USApH (U)7.0 [pH]Normal5.0-9.0[facility] Medical CenterComment on above:Order Comment: Name Collection Type:: Clean-Voided MidstreamPerformed By: #### URDS, UA #### [facility] [address] [place] [address] USAUrinalysison 26-62-9285Ilzddeqmb,UrineNegativeNormal NegativeH. Lee Moff[facility] Center & [facility] Institute Physician GroupComment on above:Order Comment: Name Collection Type:: Clean-Voided MidstreamPerformed By: #### URDS, UA #### [facility] [address] [place], [place] [address] USAGlucose Ql (U)NormalNormalNormalThe [facility] Physician GroupComment on above:Order Comment: Name Collection Type:: Clean-Voided MidstreamPerformed By: #### URDS, UA #### [facility] [address] [place] [address] USANitrite,UrineNegativeNormalNegativeThe [facility] Physician GroupComment on above:Order Comment: Name Collection Type:: Clean-Voided MidstreamPerformed By: #### URDS, UA #### [place] [id number] USAOccult Blood,UrineNegativeNormalNegativeThe [facility] Physician GroupComment on above:Order Comment: Name Collection Type:: Clean- Voided MidstreamResult Comment: PERFORMED BY: [place] [address] PATHOLOGIST GRE[employer] BUILDING ENGINEER KATINA LYONS M.D.Performed By: #### URDS, UA #### [place] [address] USAProtein,UrineNegativeNormalNegativeThe [facility] Physician GroupComment on above:Order Comment: Name Collection Type:: Clean-Voided MidstreamPerformed By: #### URDS, UA #### [place] [address] USASpecificy Bighorn,Urine1.367Stjyah1.001-1.030The [facility] Morganton Physician GroupComment on above:Order Comment: Name Collection Type:: Clean- Voided MidstreamPerformed By: #### URDS, UA #### [place] [address] USAUrobilinogen,UrineNormalNormalNormalThe [facility] - Morg[facility] Physician GroupComment on above:Order Comment: Name Collection Type:: Clean- Voided MidstreamPerformed By: #### URDS, UA #### [place] [address] USAUrobilinogen Test strip (U) [Mass/Vol]Ordered By: Jay Alvarez on [id number] (U) [Mass/Vol]Normal mg/dLNormSelect Medical Specialty Hospital - YoungstownHeart and Vascular Office/Clinic Noteon [id number] and Vascular Office/Clinic NoteHeart and Vascular Office/Clinic Note Chief Complaint Follow up after ablation History of Present Illness The patient is a soft-spoken 53-year-old male status post unsuccessful ablation at [facility] due to unstable anatomy. He maintained sinus rhythm. He is currently on Eliquis twice a day amiodarone 200 mg a day he takes atorvastatin for hyperlipidemia. He does have a harsh left carotid bruit we ordered a carotid ultrasound will see him back in 6 months vitals are otherwise nondescript. On his last visit with Dr. Knight last fall: The patient is a 53-year-old male with past cardiac history of mild to moderate CAD, diagnosed at the cardiac catheterization in 2023 in the context of new onset cardiomyopathy, history of paroxysmalatrial fibrillation with failed cardioversion, alcohol abuse, who presents today for scheduled appointment. He was seen by electrophysiology on 12/26/2019 for. A decision was made to start the patienton Multaq while awaiting scheduling for cryoablation PVI [...] procedure which he is going to schedule. [1] Review of Systems 10 point review of system reviewed otherwise unremarkable Physical Exam Vitals & Measurements HR: 60(Peripheral) BP: 110/76 SpO2: 18% HT: 178 cm HT: 70 in WT: 95.7 kg WT: 210.982 lb BMI: 30.2 HEENT normocephalic atraumatic Neck supple harsh left carotid bruit none on the right normal upstroke on the right Cardiovascular normal S1 physiologic S1-S2 Lungs clear Abdomen scaphoid normoactive bowel sounds Extremities no cyanosis clubbing or edema Assessment/Plan Afib (I48.91: Unspecified atrial fibrillation) Continue Eliquis and amiodarone Cardiomyopathy (I42.9: Cardiomyopathy, unspecified) Continue guideline directed medical therapy Harsh left carotid bruit -carotid ultrasound ordered Follow-up No qualifying data available Problem List/Past Medical History Ongoing Smoker Historical Anxiety Asthma Autoimmune disorder Hypertension Memory Issues Procedure/Surgical History Cardioversion (07/31/2023), Catheterization of left heart (05/08/2023), H/O splenectomy, Hip replacement, Lung. Medications albuterol amiodarone 200 mg Tab, 200 mg= 1 tab(s), Oral, Daily, 3 refills aripiprazole carvedilol 6.25 mg Tab, 6.25 mg= 1 tab(s), Oral, BID, 2 refills Eliquis 5 mg oral tablet, 5 mg= 1 tab(s), Oral, BID, 3 refills Entresto 24 mg-26 mg oral tablet, 1 tab(s), Oral, BID, 3 refills Lipitor 40 mg Tab, 40 mg= 1 tab(s), Oral, Daily, 11 refills Tylenol Allergies No Known Medication Allergies Social History Alcohol - Denies Alcohol Use, 05/08/2023 Substance Abuse - Denies Substance Abuse, 05/08/2023 Tobacco - Low Risk, 07/31/2023 5-9 cigarettes (between 1/4 to 1/2 pack)/day in last 30 days Tobacco Use:. Smokeless tobacco user within last 30 days Smokeless Tobacco Use:., 07/09/2024 Family History Heart disease: Father. [1] Office Visit Note; Antonia RUBIO, Tylor Potter 01/30/2024 14:53 EST The date of this visit is July 09 not June 25, 2024[facility] on above:Result Comment: Electronically Signed By: Herbert RUBIO, Jairo Crowley\.br\Date and Time Signed: 07/19/24 17:35 EDTECG 12-LEADon 05-28-2024 ECG 12-LEADVentricular Rate 76 Atrial Rate 76 P-R Interval 162 QRS Duration 88 Q-T Interval 388 QTC Calculation(Bazett) 436 P [place] 71 R [place] 39 T [place] 45 QRS Count 13 Q Onset 220 P Onset 139 P Offset 201 T Offset 414 QTC Fredericia 419 Diagnosis Normal sinus rhythm Normal ECG When compared with ECG of 27-MAY-2024 16:14, (unconfirmed) No significant change was found Confirmed by Lesvia Landis ([id number]) on 06/01/2024 6:25:37 PMNOlmsted Medical CenterACT Coag (Jaed)on [id number] and review of laboratory resultsAbnoTrinity Health System West CampusACTIVATED CLOTTING TIME LOWon [id number] Coag (Bld)70 [facility] HospitalComment on above:Target ACT range will vary based on the patient population, clinical status, and surgical intervention occurring. Activated clotting timeon 67-60-4013BGD Coag (Bld)70 sUnv77-339XityywnnxbPaulding County HospitalComment on above:Result Comment: Target ACT range will vary based on the patient population, clinical status, and surgical intervention occurring.Performed By: #### 2160-0 #### LUCIA CRUZ ([id number]) [facility] (EMC) [address] [place] [address] 43223Wsecr type and Indirect antibody screen panel (Bld)on 05-27-2024 ABO group Nom (Bld)OUniUniversity Hospitals TriPoint Medical CenterBlnew prague hospital group antibody screen QlNegativeKettering Health Dayton Ag Ql (Bld)PositivePremier Health Upper Valley Medical CenterABO group Nom (Bld)O NormalPaulding County HospitalComment on above:Performed By: #### 2160-0 #### LUCIA CRUZ ([id number]) [facility] ([facility]) [address] [place] [address] 86459Lsgsr group antibody screen QlNegativeNoSelect Medical TriHealth Rehabilitation HospitalComment on above:Performed By: #### 2160-0 #### LUCIA CRUZ ([id number]) [facility] ([facility]C) [address] [place] [address] 88335Z Ag Ql (Bld)PositiveWexner Medical CenterComment on above:Performed By: #### 2160-0 #### NICKIBDIANA AGUILAR RIO CÉSAR ([id number]) [facility] ([facility]) [address] [place] [address] 79672OQG W Auto Differential panel (Bld)on 62-49-9686Tmjjwinyi (Bld) [#/Vol]0.08 10*3/[facility] NorthBasophils/100 WBC (Bld)0.8 % 0.0 - 2.0 %[facility] HospitalEosinophils (Bld) [#/Vol]0.33 10*3/uLUniversity Hospitals of ClevelandEosinophils/100 WBC (Bld)3.1 %0.0 - 6.0 %[facility] HospitalErythrocyte distribution width (RBC) [Ratio] 13.7 %11.5 - 14.5 %[facility] HospitalHematocrit (Bld) [Volume fraction]40.5 %Low41.0 - 52.0 %[facility] HospitalHemoglobin (Bld) [Mass/Vol]13.6 g/dL13.5 - 17.5 g/dLUnMercy Health Perrysburg HospitalImcitizens memorial healthcare granulocytes (Bld) [#/Vol]0.02 10*3/uLUnMercy Health Perrysburg HospitalImcitizens memorial healthcare granulocytes/100 WBC (Bld)0.2 %0.0 - 0.9 %[facility] Comment on above:Immature Granulocyte Count (IG) includes promyelocytes, myelocytes and metamyelocytes but does not include bands. Percent differential counts (%) should be interpreted in the context of the absolute cell counts (cells/UL).Interpretation and review of laboratory resultsAbnormalUniUniversity Hospitals TriPoint Medical CenterLymphocytes (Bld) [#/Vol]2.81 10*3/uLUnMercy Health Perrysburg HospitalLymphocytes/100 WBC (Bld)26.8 %13.0 - 44.0 %[facility] HospitalMCH (RBC) [Entitic mass]31.7 pg26.0 - 34.0 pgUnMercy Health Fairfield HospitalHC (RBC) [Mass/Vol]33.6 g/dL32.0 - 36.0 g/dLWhite HospitalV (RBC) [Entitic vol]94 fL80 - 100 fLUniUniversity Hospitals TriPoint Medical CenterMonocytes (Bld) [#/Vol]1.27 10*3/uLThe MetroHealth SystemMonocytes/100 WBC (Bld)12.1 %2.0 - 10.0 %[facility] HospitalNeutrophils (Bld) [#/Vol]5.98 10*3/uLKeenan Private Hospital Comment on above:Percent differential counts (%) should be interpreted in the context of the absolute cell counts (cells/uL).Neutrophils/100 WBC (Bld)57 %40.0 - 80.0 %[facility] HospitalNucleated RBC/100 WBC (Bld) [Ratio]0 % [facility] HospitalPlatelets (Bld) [#/Vol]317 10*3/[facility] NorthRBC (Bld) [#/Vol]4.29 10*6/Parkview HealthWBC (Bld) [#/Vol]10.5 10*3/[facility] Medical CenterBasophils (Bld) [#/Vol]0.08 x10*3/uLNormal 0.00-0.10UnUniversity Hospitals Conneaut Medical CenterComment on above:Performed By: #### 23836-5 #### LUCIA CRUZ ([id number]) [facility] ([facility]) [address] [place] [address] 34707Vemfuripm/100 WBC (Bld)0.8 %Normal0.0-2.0UnUniversity Hospitals Conneaut Medical CenterComment on above:Performed By: #### 48175-5 #### LUCIA CRUZ ([id number]) [facility] ([facility]) [address] [place] [address] 77937Ldfuxzetteu (Bld) [#/Vol]0.33 x10*3/uLNormal0.00-0.70UnUniversity Hospitals Conneaut Medical CenterComment on above:Performed By: #### 02062-7 #### LUCIA CRUZ ([id number]) [facility] ([facility]) [address] [place] [address] 76254Ptjwiawbjun/100 WBC (Bld)3.1 %Normal0.0-6.0UnUniversity Hospitals Conneaut Medical CenterComment on above:Performed By: #### 93811-5 #### LUCIA CRUZ ([id number]) [facility] ([facility]) [address] [place] [address] 00553Dwerffpsrly distribution width (RBC) [Ratio]13.7 %Normal 11.5-14.5Paulding County HospitalComment on above:Performed By: #### 16406-7 #### LUCIA CRUZ ([id number]) [facility] ([facility]) [address] [place] [address] 71641Rmagdjnhkx (Bld) [Volume fraction]40.5 %Low41.0-52.0UnUniversity Hospitals Conneaut Medical CenterComment on above:Performed By: #### 55003-6 #### LUCIA CRUZ ([id number]) [facility] ([facility]) [address] [place] [address] 33418Rspytqtprt (Bld) [Mass/Vol]13.6 g/yURenbuo97.5-17.5Paulding County HospitalComment on above:Performed By: #### 69609-1 #### LUCIA CRUZ ([id number]) [facility] ([facility]) [address] [place] [address] 39982Htuheyqk granulocytes (Bld) [#/Vol]0.02 x10*3/uLNormal0.00-0.70 [facility] HospitalComment on above:Performed By: #### 51216-9 #### LUCIA CRUZ ([id number]) [facility] (EM) [address] [place] [address] 64618Hwwoynbn granulocytes/100 WBC (Bld)0.2 %Normal0.0-0.9UnUniversity Hospitals Conneaut Medical CenterComment on above:Result Comment: Immature Granulocyte Count (IG) includes promyelocytes, myelocytes and metamyelocytes but does not include bands. Percent differential counts (%) should be interpreted in the context of the absolute cell counts (cells/UL).Performed By: #### 55946-8 #### LUCIA CRUZ ([id number]) [facility] ([facility]) [address] [place] [address] 06642Pmtqnuehznw (Bld) [#/Vol]2.81 x10*3/uLNormal1.20-4.80Paulding County HospitalComment on above:Performed By: #### 21646-9 #### LUCIA CRUZ ([id number]) [facility] ([facility]) [address] [place] [address] 65393Niwelwighac/100 WBC (Bld)26.8 %Dgmomq50.0-44.0Paulding County HospitalComment on above:Performed By: #### 06481-8 #### LUCIA CRUZ ([id number]) [facility] ([facility]) [address] [place] [address] 00850VJZ (RBC) [Entitic mass]31.7 xdNhrdez77.0-34.0UnUniversity Hospitals Conneaut Medical CenterComment on above:Performed By: #### 82561-8 #### LUCIA CRUZ ([id number]) [facility] ([facility]) [address] [place] [address] 96913ZNJY (RBC) [Mass/Vol]33.6 g/uRVmaysi94.0-36.0UnUniversity Hospitals Conneaut Medical CenterComment on above:Performed By: #### 76161-0 #### NICKIBDIANA CRUZ ([id number]) [facility] ([facility]) [address] [place] [address] 86058VGO (RBC) [Entitic vol]94 iRHbfrsv38-671HkxmkawqhcPaulding County HospitalComment on above:Performed By: #### 46919-6 #### LUCIA CRUZ ([id number]) [facility] ([facility]) [address] [place] [address] 88835Doslryxlz (Bld) [#/Vol]1.27 x10*3/uLHigh0.10-1.00Paulding County HospitalComment on above:Performed By: #### 94098-5 #### LUCIA CRUZ ([id number]) [facility] ([facility]) [address] [place] [address] 65720Vtzgrvwqm/100 WBC (Bld)12.1 %Normal2.0-10.0Paulding County HospitalComment on above:Performed By: #### 46094-9 #### LUCIA CRUZ ([id number]) [facility] ([facility]) [address] [place] [address] 08761Mxhojgmooee (Bld) [#/Vol]5.98 x10*3/uLNormal1.20-7.70UnUniversity Hospitals Conneaut Medical CenterComment on above:Result Comment: Percent differential counts (%) should be interpreted in the context of the absolute cell counts (cells/uL).Performed By: #### 95683-4 #### LUCIA AGUILAR RIO CÉSAR ([id number]) [facility] ([facility]) [address] [place] [address] 23582Mjlbocirovn/100 WBC (Bld)57.0 %Yawpjy93.0-80.0Paulding County HospitalComment on above:Performed By: #### 70590-7 #### LUCIA CRUZ ([id number]) [facility] ([facility]) [address] [place] [address] 47186Hktqkixno RBC/100 WBC (Bld) [Ratio]0.0 /100 WBCsNormal0.0-0.0 [facility] HospitalComment on above:Performed By: #### 51989-0 #### LUCIA AGUILAR RIO CÉSAR ([id number]) [facility] ([facility]) [address] [place] [address] 59504Hmtytqvoa (Bld) [#/Vol]317 x10*3/mPMxmkzi971-226EbzdjsrfrjUniversity Hospitals Conneaut Medical CenterComment on above:Performed By: #### 40439-3 #### LUCIA AGUILAR RIO CÉSAR ([id number]) [facility] ([facility]) [address] [place] [address] 36200AXQ (Bld) [#/Vol]4.29 x10*6/uLLow4.50-5.90Paulding County HospitalComment on above:Performed By: #### 80076-2 #### LUCIA CRUZ ([id number]) [facility] ([facility]) [address] [place] [address] 04961DLN (Bld) [#/Vol]10.5 x10*3/uLNormal4.4-11.3UnUniversity Hospitals Conneaut Medical CenterComment on above:Performed By: #### 75473-9 #### LUCIA CRUZ ([id number]) [facility] ([facility]) [address] [place] [address] 85664Yzsnsrgltwppv metabolic 2000 panelon 86-25-4375Xutesyg BCP dye [Mass/Vol]4.4 g/dL3.4 - 5.0 g/dLUnMercy Health Perrysburg HospitalALP [Catalytic activity/Vol]52 U/L33 - 120 U/[facility] CenterALT With P-5'-P [Catalytic activity/Vol]24 U/L10 - 52 U/[facility] Comment on above:Patients treated with Sulfasalazine may generate falsely decreased results for ALT.Anion gap [Moles/Vol]9 mmol/LLow10 - 20 mmol/L [facility] HospitalAST With P-5'-P [Catalytic activity/Vol]15 U/L9 - 39 U/[facility] CenterBilirubin [Mass/Vol]0.5 mg/dL0.0 - 1.2 mg/dLUnMercy Health Perrysburg HospitalCalcium [Mass/Vol]9 mg/dL8.6 - 10.3 mg/dL [facility] HospitalChloride [Moles/Vol]106 mmol/L98 - 107 mmol/L [facility] HospitalCO2 [Moles/Vol]30 mmol/L21 - 32 mmol/L [facility] HospitalCreatinine [Mass/Vol]1.26 mg/dL0.50 - 1.30 mg/dLUnMercy Health Perrysburg HospitalGFR/1.73 sq M.predicted among non-blacks MDRD (S/P/Bld) [Vol rate/Area]67 mL/min/{1.73_m2}- PINFUniUniversity Hospitals TriPoint Medical CenterComment on above:Calculations of estimated GFR are performed using the 2020 CKD-EPI Study Refit equation without therace variable for the IDMS- Traceable creatinine methods. https://jasn.asnjournals.org/content//ASN.7347777068 Glucose [Mass/Vol]100 mg/mVEjpe36 - 99 mg/dLUnMercy Health Perrysburg Hospital Interpretation and review of laboratory resultsAbnormalUniUniversity Hospitals TriPoint Medical CenterPotassium [Moles/Vol]4.2 mmol/L3.5 - 5.3 mmol/[facility] CenterProtein [Mass/Vol]6.6 g/dL6.4 - 8.2 g/dLUnMercy Health Perrysburg HospitalSodium [Moles/Vol]141 mmol/L136 - 145 mmol/[facility] CenterUrea nitrogen [Mass/Vol]10 mg/dL6 - 23 mg/dLUnMercy Health Perrysburg HospitalUnMercy Health Perrysburg HospitalAlbumin BCP dye [Mass/Vol]4.4 g/dL Normal3.4-5.0UnUniversity Hospitals Conneaut Medical CenterComment on above: Performed By: #### 2160-0 #### NICKIBDIANA CRUZ ([id number]) [facility] ([facility]) [address] [place] [address] 40388SRJ [Catalytic activity/Vol]52 U/HMcolsq17-871LjrpuqlihpUniversity Hospitals Conneaut Medical CenterComment on above:Performed By: #### 2160-0 #### NICKIBELIEDIE CRUZ ([id number]) [facility] (C) [address], [place] [address]QEE With P-5'-P [Catalytic activity/Vol]24 U/SSqdqqx00-85 [facility] County HospitalComment on above:Result Comment: Patients treated with Sulfasalazine may generate falsely decreased results for ALT.Performed By: #### 2160-0 #### ANAIBELIEDIE CRUZ ([id number]) [facility] ([facility]) [address], [place] [address]Cnhuo gap [Moles/Vol]9 mmol/RBzh60-23WxesalkybyUniversity Hospitals Conneaut Medical CenterComment on above:Performed By: #### 2160-0 #### NICKIBELIEDIE CRUZ ([id number]) [facility] ([facility]) [address] [place] [address] 13378ASD With P-5'-P [Catalytic activity/Vol]15 U/LNormal9-39 [facility] HospitalComment on above:Performed By: #### 2160-0 #### ANAIBELIEDIE CRUZ ([id number]) [facility] ([facility]) [address] [place] [address] 21109Opswsyynt [Mass/Vol]0.5 mg/dLNormal0.0-1.2UnUniversity Hospitals Conneaut Medical CenterComment on above:Performed By: #### 2160-0 #### NICKIBDIANA CRUZ ([id number]) [facility] ([facility]) [address] [place] [address] 47751Pabfmaf [Mass/Vol]9.0 mg/dLNormal8.6-10.3Paul[facility] County HospitalComment on above:Performed By: #### 2160-0 #### NICKIBDIANA CRUZ ([id number]) [facility] ([facility]) [address] [place] [address] 27557Kmjutiby [Moles/Vol]106 mmol/DUkcofq49-683EjhqnrlzmfUniversity Hospitals Conneaut Medical CenterComment on above:Performed By: #### 2160-0 #### NICKIBDIANA CRUZ ([id number]) [facility] ([facility]) [address] [place] [address] 03242PW8 [Moles/Vol]30 mmol/TDjocvv14-93FqoqspraulUniversity Hospitals Conneaut Medical CenterComment on above:Performed By: #### 2160-0 #### NICKIBDIANA CRUZ ([id number]) [facility] ([facility]) [address] [place] [address] 06104Vjameapceh [Mass/Vol]1.26 mg/dLNormal0.50-1.30UnUniversity Hospitals Conneaut Medical CenterComment on above:Performed By: #### 2160-0 #### LUCIA CRUZ ([id number]) [facility] ([facility]) [address] [place] [address] 91787Uekimvxwnm filtration rate/1.73 sq M.bctvrsoue79 mL/min/1.73m*2 Normal>60UnUniversity Hospitals Conneaut Medical CenterComment on above:Result Comment: Calculations of estimated GFR are performed using the 2020 CKD-EPI Study Refit equation without the race variable for the IDMS-Traceable creatinine methods. https://jasn.asnjournals.org/content//ASN.1034251452Mtehgkiiu By: #### 2160-0 #### NICKIBDIANA CRUZ ([id number]) [facility] ([facility]) [address] [place] [address] 93263Kcjcppo [Mass/Vol]100 mg/yVFrzc54-14UjrfllhujtUniversity Hospitals Conneaut Medical CenterComment on above:Performed By: #### 2160-0 #### NICKIBELIEDIE CRUZ ([id number]) [facility] ([facility]) [address] [place] [address] 25464Zuugbzgbi [Moles/Vol]4.2 mmol/LNormal3.5-5.3Paul[facility] County HospitalComment on above:Performed By: #### 2160-0 #### ANAIBELIEDIE CRUZ ([id number]) [facility] ([facility]) [address] [place] [address] 38815Ekokohn [Mass/Vol]6.6 g/dLNormal6.4-8.2Paul[facility] HospitalComment on above:Performed By: #### 2160-0 #### NICKIBELIEDIE CRUZ ([id number]) [facility] ([facility]) [address] [place] [address] 69159Stphkp [Moles/Vol]141 mmol/TQvhpwq660-874DijzhfgkoxPaulding County HospitalComment on above:Performed By: #### 2160-0 #### ANAIBELIEDIE ZAYRA CÉSAR ([id number]) [facility] ([facility]) [address] [place] [address] 32224Lala nitrogen [Mass/Vol]10 mg/dLNormal6-23Paul[facility] County HospitalComment on above:Performed By: #### 2160-0 #### ANAIBELIEDIE CRUZ ([id number]) [facility] ([facility]) [address] [place] [address] 90505IBF 12-LEADon 48-78-9514DUM 12-LEADVentricular Rate 75 Atrial Rate 75 P-R Interval 176 QRS Duration 94 Q-T Interval 408 QTC Calculation(Bazett) 455 P [place] 64 R [place] 27 T [place] 45 QRS Count 13 Q Onset 216 P Onset 128 P Offset 191 T Offset 420 QTC Fredericia 439 Diagnosis Normal sinus rhythm Cannot rule out Inferior infarct , age undetermined Abnormal ECG When compared with ECG of 27-MAY-2024 08:26, (unconfirmed) Sinus rhythm has replaced Atrial fibrillation Confirmed by Lesvia Landis ([id number]) on 06/01/2024 6:31:57 [facility] HospitalECG 12-LEADVentricular Rate 73 Atrial Rate 61 QRS Duration 94 Q-T Interval 398 QTC Calculation(Bazett) 438 R [place] 23 T [place] 38 QRS Count 11 Q Onset 216 T Offset 415 QTC Fredericia 425 Diagnosis Atrial fibrillation Abnormal ECG Confirmed by Ned Winter ([id number]) on 06/01/2024 6:31:48 [facility] HospitalElectrophysiology studyon 05-27-2024.Summary: Discontinued cryo PVI Discontinued trans-septal 3D mapping Electrophysiology study ACT monitoring x 1 Intracardiac echo Ultrasound guided vascular access x 3 Cardioversion of atrial fibrillation Discharge: The patient was in stable condition after diagnostic procedure completed. Follow up: The patient will remain in the hospital overnight for telemetry monitoring and observation, with anticipated discharge on the following day. The patient should be alert for bleeding, swelling, or signs of infection. The patient should call the pit slagman immediately if symptoms recur, or for any problems. The patient has been instructed accordingly. He declined for anyone to be contacted for the procedure Patient history: Please refer to the detailed history and physical on the patient's medical chart. Diagnosis: Persistent atrial fibrillation Procedure narrative: The risks, benefits, and alternatives to the procedure and sedation were explained to the patient, and informed consent was obtained. The patient was in the fasting state. A baseline ECG was recorded. RF grounding pads were placed. Self-adhesive anterior-posterior defibrillation pads were applied. A ZOLL defibrillator was used for monitoring and the defibrillator waveform was set to biphasic. The patient was set up for continuous monitoring of surface 12 lead ECG and pulse oximetry. Blood pressure was monitored with automatic cuff measurements. The procedure was performed under IV deep sedation, administered by anesthesiology. Heparin was administered as per protocol. Cardioversion was performed via anterior posterior patches. 200, 300, then 360 Joules delivered via anteroposterior patches. 360 Joules converted the rhythm to normal sinus rhythm. Vascular ultrasound was used to guide femoral venous access. The right femoral vein was accessed. An 8.5 F sheath was inserted. The left femoral vein was then accessed x 2. A 10 F long sheath was inserted, and a 10 F Duo sheath was inserted. A quadripolar catheter was advanced to the RVA. A deflectable catheter was advanced to the His bundle. ACT's were monitored. ICE catheter was advanced to the heart under fluoroscopic guidance. EP testing was performed. HV 42 ms. An KATHE system was used to create a 3D map of the heart. A long J tipped exchange wire was advanced through the existing right femoral sheath. The wire was advanced to the SVC. The existing 8 F sheath was exchanged for a Flexcross sheath. With fluoroscopic and ICE guidance, the Flexcross system was prepared to perform the trans-septal catheterization. With fluoroscopy and with ICE, there was no safe plane to cross the septum, as the aorta was visualized in each image. The rove wire was advanced to the SVC and multiple pull downs were visualized along the septum, and each image had the aorta present. CT images reviewed, and atrial diameter over 6 cm. Due to rotation of the heart and overlying aorta, trans-septal catheterization was not performed, and PVI was discontinued. The catheters were withdrawn. ICE showed no pericardial effusion. Sheaths were removed. A Figure of 8 stitch was placed at the right femoral venous site. Hemostasis was achieved with the suture and with manual pressure. Vascades were placed in the left femoral sites. Hemostasis was achieved with Vascades and manual pressure. The patient was extubated and transferred to the PACU in stable condition. Complications: The patient tolerated the procedure without any complications or incident. See procedural log.SYNGO_SECTRA_CARDIOLAB_XPERKe[facility]an [facility] Hospital Work Phone: PT and aPTT panel Coag (PPP)on 24-50-7084fWKE Coag (PPP) [Time]28 [facility] SouthwoodsINR Coag (PPP) [Relative time] 1.5 {INR}High0.9 - 1.1[facility] HospitalInterpretation and review of laboratory resultsAbnormalUniUniversity Hospitals TriPoint Medical CenterPT Coag (PPP) [Time]17 [facility] AkronThe APTT is no longer used for monitoring Unfractionated Heparin Therapy. For monitoring Heparin Therapy, use the Heparin Assay.[facility] Private HospitalUnMercy Health Perrysburg HospitalaPTT Coag (PPP) [Time]28 pGackkw39-15RgdxdzecxkUniversity Hospitals Conneaut Medical CenterComment on above:Order Comment: The APTT is no longer used for monitoring Unfractionated Heparin Therapy. For monitoring Heparin Therapy, use the Heparin Assay.Performed By: #### 55120-0 #### LUCIA CRUZ ([id number]) [facility] (EMC) [address] [place] [address] 18846TEB Coag (PPP) [Relative time]1.5High0.9-1.1Paulding County HospitalComment on above:Order Comment: The APTT is no longer used for monitoring Unfractionated Heparin Therapy. For monitoring Heparin Therapy, use the Heparin Assay.Performed By: #### 72806-7 #### LUCIA CRUZ ([id number]) [facility] (EM) [address] [place] [address] 48514NI Coag (PPP) [Time]17.0 sHigh9.8-12.4UnUniversity Hospitals Conneaut Medical CenterComment on above:Order Comment: The APTT is no longer used for monitoring Unfractionated Heparin Therapy. For monitoring Heparin Therapy, use the Heparin Assay.Performed By: #### 33565-3 #### LUCIA CRUZ ([id number]) [facility] ([facility]C) [address] [place] [address] 68318Wjwjiil RBC: 2 Unitson 45-28-0879Axktw Expiration Date06/24/2024 11:59:00 PM EDTKeenan Private HospitalDispense StatusXMUnMercy Health Perrysburg HospitalPRODUCT BLOOD [id number] Private Hospital PRODUCT [id number] Private HospitalUnThe Christ HospitalUnit [id number]-YOnmugxcqfpUniversity Hospitals Health System RHPositiveKeenan Private HospitalUNIT [id number] [facility] HospitalXM INTEMedina HospitalTRANSESOPHAGEAL ECHO (ABHISHEK)on 05-27-2024 TRANSESOPHAGEAL ECHO (ABHISHEK)[address] [address] TRANSESOPHAGEAL ECHOCARDIOGRAM REPORT Patient Name: JUAN CARLOS Tenisha RICK Hardy Physician: [id number] Chan Thakur MD Study Date: 05/27/2024 Ordering Provider: [id number] CHEYENNE HORN MRN/PID: [id number] Fellow: Nurse: Zeb Grimm RN Date of /Age: 7 1970 Case Finishing Machine Adjuster: Jennifer Barrera RDCS Gender Assigned at M Additional Staff: : Height: 180.34 cm Admit Date: Weight: 98.88 kg Admission Status: Outpatient BSA / BMI: 2.19 m2 / 30.41 Department Location: [address] [place] [address] kg/m2 Blood Pressure: 129 /84 mmHg Study Type: TRANSESOPHAGEAL ECHO (ABHISHEK) Diagnosis/ICD: Unspecified atrial fibrillation-I48.91 Indication: AF CPT Codes: ABHISHEK Complete-17146; Moderate Sedation Services initial 15 minutes patient >5 years-41782 Study Detail: The following Echo studies were [...] Medication: The pharynx was anesthetized with Cetacaine spray and viscous lidocaine. The patient was sedated using moderate sedation. Total intraservice time for moderate sedation was 26 minutes.Midazolam and Fentanyl was used to sedate the patient for this exam. ABHISHEK Procedure: The probe was passed without difficulty. The following complication was encountered during the procedure: Patient tolerated the procedure well without any apparent complications. Left Ventricle: The left ventricular systolic function is low normal, with a visually estimated ejection fraction of 50-55%. There are no regional wall motion abnormalities. The left ventricular cavity size is normal. Spectral Doppler shows a normal pattern of left ventricular diastolic filling. Left Atrium: The left atrial size is mild to moderately dilated. There is no definite left atrial thrombus present. A bubble study using agitated saline was performed. Bubble study is negative. Thereis a normal sized left atrial appendage and there is no thrombus visualized in the left atrial appendage. Right Ventricle: The right ventricle is normal in size. There is normal right ventricular global systolic function. Right Atrium: The right atrial size is normal. Aortic Valve: The aortic valve is trileaflet. There is moderate aortic valve regurgitation. Mitral Valve: The mitral valve is normal in structure. There is no evidence of mitral valve regurgitation. Tricuspid Valve: The tricuspid valve is structurally normal. There is mild tricuspid regurgitation. Pulmonic Valve: The pulmonic valve is not well visualized. There is no indication of pulmonic valveregurgitation. Pericardium: No pericardial effusion noted. Aorta: The aortic root is normal. There is plaque visualized in the descending aorta which is classified as a Grade 2 [mild (focal or diffuse) intimal thickening of 2-3 mm] atherosclerosis. Pulmonary Veins: The pulmonary veins appear normal and return normally to the left atrium. CONCLUSIONS: 1. The left ventricular systolic function is low normal, with a visually estimated ejection fraction of 50-55%. 2. The left atrial size is mild to moderately dilated. 3. Moderate aortic valve regurgitation. 4. No left atrial thrombus. 5. There is plaque visualized in the descending aorta. QUANTITATIVE DATA SUMMARY: LV SYSTOLIC FUNCTION: Normal Ranges: EF-Visual: 53 % LV EF Reported: 53 % AORTIC INSUFFICIENCY: AI Vmax: 2.49 m/s AI Half-time: 534 msec AI Decel Rate: 190.33 cm/s2 [id number] Chan Thakur MD Electronically signed on 05/30/2024 at 12:09:38 PM Final [facility] Medical CenterCB panel Auto (Bld) on 93-61-5388Leorwyywrvi distribution width (RBC) [Ratio]14.2 %11.5 - 14.5 % [facility] HospitalHematocrit (Bld) [Volume fraction]40.6 %Low41.0 - 52.0 %[facility] HospitalHemoglobin (Bld) [Mass/Vol]13.7 g/dL 13.5 - 17.5 g/dLUniversity Hospitals of ClevelandInterpretation and review of laboratory resultsAbnoalUBucyrus Community HospitalH (RBC) [Entitic mass]31.9 pg26.0 - 34.0 pgKeenan Private HospitalMCHC (RBC) [Mass/Vol] 33.7 g/dL32.0 - 36.0 g/dLKeenan Private HospitalMCV (RBC) [Entitic vol]94 fL80 - 100 fLUniUniversity Hospitals TriPoint Medical CenterNucleated RBC/100 WBC (Bld) [Ratio]0 %[facility] Private HospitalPlatelets (Bld) [#/Vol]349 10*3/uL [facility] HospitalRB (Bld) [#/Vol]4.3 10*6/[facility] HealthW (Bld) [#/Vol]10 10*3/uLKeenan Private HospitalUnMercy Health Perrysburg HospitalErythrocyte distribution width (RBC) [Ratio]14.2 %Hqysjh85.5-14.5Paulding County HospitalComment on above:Performed By: #### 82079-2 #### LUCIA CRUZ ([id number]) [facility] ([facility]C) [address] [place] [address] 37558Lhargputlo (Bld) [Volume fraction]40.6 %Low41.0-52.0Paulding County HospitalComment on above:Performed By: #### 79121-8 #### LUCIA CRUZ ([id number]) [facility] (EMC) [address] [place] [address] 03317Czojgudacs (Bld) [Mass/Vol]13.7 g/oXMevcom67.5-17.5Paulding County HospitalComment on above:Performed By: #### 46336-8 #### LUCIA CRUZ ([id number]) [facility] (EMC) [address] [place] [address] 68025QRE (RBC) [Entitic mass]31.9 rzYazcic05.0-34.0University Hospit[facility] Buffalo Medical CenterComment on above:Performed By: #### 21424-2 #### LUCIA CRUZ ([id number]) [facility] (EMC) [address] [place] [address] 05488WWPC (RBC) [Mass/Vol]33.7 g/uMRqfdhz62.0-36.0Paul[facility] County HospitalComment on above:Performed By: #### 21308-9 #### LUCIA CRUZ ([id number]) [facility] (EMC) [address] [place] [address] 84561VTM (RBC) [Entitic vol]94 rQSevjsc11-709HtmjiaqpbzPaulding County HospitalComment on above:Performed By: #### 88159-5 #### LUCIA CRUZ ([id number]) [facility] (EMC) [address] [place] [address] 58933Mpdxsmpio RBC/100 WBC (Bld) [Ratio]0.0 /100 WBCsNormal0.0-0.0 [facility] County HospitalComment on above:Performed By: #### 05617-2 #### LUCIA CRUZ ([id number]) [facility] ([facility]C) [address] [place] [address] 43412Xoqmxdaql (Bld) [#/Vol]349 x10*3/oPMhszde880-192DwyhhdkmxzUniversity Hospitals Conneaut Medical CenterComment on above:Performed By: #### 93903-6 #### LUCIA CRUZ ([id number]) [facility] ([facility]C) [address] [place] [address] 29223BDP (Bld) [#/Vol]4.30 x10*6/uLLow4.50-5.90Paulding County HospitalComment on above:Performed By: #### 03871-8 #### LUCIA CRUZ ([id number]) [facility] ([facility]C) [address] [place] [address] 68194NKQ (Bld) [#/Vol]10.0 x10*3/uLNormal4.4-11.3UnUniversity Hospitals Conneaut Medical CenterComment on above:Performed By: #### 75040-1 #### LUCIA CRUZ ([id number]) [facility] ([facility]C) [address] [place] [address] 66689Zrznepctflfjf metabolic 2000 panelon 98-32-5924Temfhsx BCP dye [Mass/Vol]4.6 g/dL3.4 - 5.0 g/dLUnMercy Health Perrysburg HospitalALP [Catalytic activity/Vol]61 U/L33 - 120 U/[facility] CenterALT With P-5'-P [Catalytic activity/Vol]47 U/L10 - 52 U/[facility] Comment on above:Patients treated with Sulfasalazine may generate falsely decreased results for ALT.Anion gap [Moles/Vol]9 mmol/LLow10 - 20 mmol/L [facility] HospitalAST With P-5'-P [Catalytic activity/Vol]29 U/L9 - 39 U/[facility] CenterBilirubin [Mass/Vol]0.6 mg/dL0.0 - 1.2 mg/dLUnMercy Health Perrysburg HospitalCalcium [Mass/Vol]9.5 mg/dL8.6 - 10.3 mg/dLUnMercy Health Perrysburg HospitalChloride [Moles/Vol]103 mmol/L98 - 107 mmol/[facility] CenterCO2 [Moles/Vol]32 mmol/L21 - 32 mmol/L [facility] HospitalCreatinine [Mass/Vol]1.22 mg/dL0.50 - 1.30 mg/dLUnMercy Health Perrysburg HospitalGFR/1.73 sq M.predicted among non-blacks MDRD (S/P/Bld) [Vol rate/Area]70 mL/min/{1.73_m2}- PINFUniUniversity Hospitals TriPoint Medical CenterComment on above:Calculations of estimated GFR are performed using the 2020 CKD-EPI Study Refit equation without therace variable for the IDMS- Traceable creatinine methods. https://jasn.asnjournals.org/content//ASN.8605833467 Glucose [Mass/Vol]91 mg/dL74 - 99 mg/dLUnMercy Health Perrysburg Hospital Interpretation and review of laboratory resultsAbnormalUniversNortheastern CenterPotassium [Moles/Vol]4.2 mmol/L3.5 - 5.3 mmol/[facility] CenterProtein [Mass/Vol]7.2 g/dL6.4 - 8.2 g/dLUnMercy Health Perrysburg HospitalSodium [Moles/Vol]140 mmol/L136 - 145 mmol/[facility] CenterUrea nitrogen [Mass/Vol]9 mg/dL6 - 23 mg/dLUnMercy Health Perrysburg HospitalUnMercy Health Perrysburg HospitalAlbumin BCP dye [Mass/Vol]4.6 g/dL Normal3.4-5.0UnUniversity Hospitals Conneaut Medical CenterComment on above: Performed By: #### 83812-8 #### LUCIA CRUZ ([id number]) [facility] (EMC) [address] [place] [address] 81296SFW [Catalytic activity/Vol]61 U/BKsqiaq29-482LvepxpevmzUniversity Hospitals Conneaut Medical CenterComment on above:Performed By: #### 79865-0 #### LUCIA CRUZ ([id number]) [facility] (C) [address] [place] [address] 69519OVM With P-5'-P [Catalytic activity/Vol]47 U/CNdfrsd52-65 [facility] HospitalComment on above:Result Comment: Patients treated with Sulfasalazine may generate falsely decreased results for ALT.Performed By: #### 94601-5 #### LUCIA CRUZ ([id number]) [facility] (EMC) [address], [place] [address]Kshsd gap [Moles/Vol]9 mmol/YCnm08-23ElctjlhwwfUniversity Hospitals Conneaut Medical CenterComment on above:Performed By: #### 16484-3 #### LUCIA CRUZ ([id number]) [facility] ([facility]C) [address] [place] [address] 30981RYL With P-5'-P [Catalytic activity/Vol]29 U/LNormal9-39 [facility] HospitalComment on above:Performed By: #### 97394-0 #### LUCIA CRUZ ([id number]) [facility] (EMC) [address] [place] [address] 48170Ouyecrbad [Mass/Vol]0.6 mg/dLNormal0.0-1.2UnUniversity Hospitals Conneaut Medical CenterComment on above:Performed By: #### 42768-7 #### LUCIA CRUZ (83076) [facility] (EMC) [address] [place] [address] 60256Zsxirmo [Mass/Vol]9.5 mg/dLNormal8.6-10.3UnUniversity Hospitals Conneaut Medical CenterComment on above:Performed By: #### 85443-8 #### NICKIBDIANA CRUZ (82900) [facility] ([facility]C) [address] [place] [address] 57928Aymbeamv [Moles/Vol]103 mmol/FBbelim98-109RhzkksziosUniversity Hospitals Conneaut Medical CenterComment on above:Performed By: #### 72752-1 #### LUCIA CRUZ (73381) [facility] ([facility]C) [address] [place] [address] 02203VI7 [Moles/Vol]32 mmol/LOvqzeo71-43SarzhmzrydUniversity Hospitals Conneaut Medical CenterComment on above:Performed By: #### 39187-0 #### LUCIA CRUZ (37213) [facility] ([facility]C) [address] [place] [address] 71922Ellqfnrzuc [Mass/Vol]1.22 mg/dLNormal0.50-1.30UnUniversity Hospitals Conneaut Medical CenterComment on above:Performed By: #### 26932-3 #### LUCIA CRUZ ([id number]) [facility] ([facility]C) [address] [place] [address] 83196Vyjyhufugx filtration rate/1.73 sq M.ordouledr03 mL/min/1.73m*2 Normal>60UnUniversity Hospitals Conneaut Medical CenterComment on above:Result Comment: Calculations of estimated GFR are performed using the 2020 CKD-EPI Study Refit equation without the race variable for the IDMS-Traceable creatinine methods. https://jasn.asnjournals.org/content//ASN.8089118101Ajmvjovcx By: #### 87576-4 #### LUCIA CRUZ (19984) [facility] ([facility]C) [address] [place] [address] 85355Lwykoje [Mass/Vol]91 mg/qHRgsots99-92BerubvpgniPaulding County HospitalComment on above:Performed By: #### 68981-2 #### NICKIBDIANA CRUZ ([id number]) [facility] ([facility]C) [address] [place] [address] 28321Mpeerneqx [Moles/Vol]4.2 mmol/LNormal3.5-5.3Paul[facility] County HospitalComment on above:Performed By: #### 49224-5 #### ANAIBELIEDIE AGUILARZAYRA CÉSAR (47765) [facility] ([facility]C) [address] [place] [address] 66171Mvqybsa [Mass/Vol]7.2 g/dLNormal6.4-8.2Paul[facility] County HospitalComment on above:Performed By: #### 04750-3 #### NICKIBELIEDIE AGUILARZAYRA CÉSAR ([id number]) [facility] ([facility]C) [address] [place] [address] 22439Dfvmgz [Moles/Vol]140 mmol/CAgfqfl251-058LwjmmplxfeUniversity Hospitals Conneaut Medical CenterComment on above:Performed By: #### 73570-0 #### ANAIBELIEDIE ZAYRA CÉSAR (07246) [facility] ([facility]C) [address] [place] [address] 32175Sblm nitrogen [Mass/Vol]9 mg/dLNormal6-23Paul[facility] County HospitalComment on above:Performed By: #### 22798-8 #### ANAIBELIEDIE ZAYRA CÉSAR ([id number]) [facility] ([facility]C) [address] [place] [address] 50676GOJ 12-LEADon 60-24-2766UPV 12-LEADVentricular Rate 81 Atrial Rate 119 QRS Duration 90 Q-T Interval 352 QTC Calculation(Bazett) 408 R [place] 42 T [place] 52 QRS Count 13 Q Onset 220 T Offset 396 QTC Fredericia 388 Diagnosis Atrial fibrillation Abnormal ECG No previous ECGs available Confirmed by Lesvia Landis ([id number]) on 03/10/2024 4:02:16 [facility] HospitalNo Panel InformationOrdered By: Lesvia Landis on 64-66-3251Etzkkv Admp360AQEAezgaqbnicMount Carmel Health System Work Phone: Q Qqjch856 [facility] Work Phone: QRS Mxtdo86xqvptKsbrcvzrsbUniversity Hospitals TriPoint Medical Center Work Phone: QRS Hwvlskwv25 [facility] Work Phone: QT Cmwbssdb128 [facility] Work Phone: QTC Calculation(Bazett)408 [facility] Work Phone: [phone] Iybjliffkd440 [facility] Work Phone: R Agsa95wehwkfvExmkgbopxcHarrison Community Hospital Work Phone: T Imjb34qvwryhmUdbxdeguenAvita Health System Work Phone: T Wgksbz192 [facility] Work Phone: [phone] Fxrp69CMFTbqmjhdgeqMount Carmel Health System Work Phone: [facility] Work Phone: No Panel Informationon 01-29-2111Byqbdp fibrillation Abnormal ECG No previous ECGs available Confirmed by Lesvia Landis ([id number]) on 03/10/2024 4:02:16 PMLesvia Leiva MD - 03/10/2024 Atrial fibrillation Abnormal ECG No previous ECGs available Confirmed by Lesvia Landis ([id number]) on 03/10/2024 4:02:16 PM [facility] Work Phone: PT and aPTT panel Coag (PPP)on 95-12-1888gIYN Coag (PPP) [Time]35 [facility] SouthwoodsINR Coag (PPP) [Relative time] 1.3 {INR}High0.9 - 1.1[facility] HospitalInterpretation and review of laboratory resultsAbnoHarrison Community HospitalPT Coag (PPP) [Time]14.4 [facility] AkronThe APTT is no longer used for monitoring Unfractionated Heparin Therapy. For monitoring Heparin Therapy, use the Heparin Assay.[facility] Medical CenteraPTT Coag (PPP) [Time]35 pQaxfxx52-06DvvnybgdpePaulding County HospitalComment on above:Order Comment: The APTT is no longer used for monitoring Unfractionated Heparin Therapy. For monitoring Heparin Therapy, use the Heparin Assay.Performed By: #### 21566-4 #### LUCIA CRUZ ([id number]) [facility] ([facility]) [address] [place] [address] 12043VWG Coag (PPP) [Relative time]1.3High0.9-1.1Paul[facility] County HospitalComment on above:Order Comment: The APTT is no longer used for monitoring Unfractionated Heparin Therapy. For monitoring Heparin Therapy, use the Heparin Assay.Performed By: #### 82038-4 #### LUCIA CRUZ ([id number]) [facility] ([facility]) [address] [place] [address] 52021UZ Coag (PPP) [Time]14.4 sHigh9.8-12.8Paulding County HospitalComment on above:Order Comment: The APTT is no longer used for monitoring Unfractionated Heparin Therapy. For monitoring Heparin Therapy, use the Heparin Assay.Performed By: #### 92168-2 #### LUCIA CRUZ ([id number]) [facility] ([facility]) [address] [place] [address] 39243ZVNXBYTUNJRVFKA ECHO (ABHISHEK)on 52-56-2041IZJQZAPZJWEYNTN ECHO ([place]HEKCra[place] [address] TRANSESOPHAGEAL ECHOCARDIOGRAM REPORT Patient Name: JUAN CARLOS Steven RICK Hardy Physician: [id number] Caroline Dixon MD Study Date: 03/10/2024 Ordering Provider: [id number] CHEYENNE Areli KORY MRN/PID: [id number] Fellow: Nurse: Sugey Velez RN Date of /Age: 7 1970 Case Finishing Machine Adjuster: Dottie ALVARADO Gender Assigned at M Additional Staff: : Height: 165.10 cm Admit Date: 03/10/2024 Weight: 68.95 kg Admission Status: Outpatient BSA / BMI: 1.76 m2 / 25.29 Department Location: [address] [place] [address] kg/m2 Blood Pressure: 126 /80 mmHg Study Type: TRANSESOPHAGEAL ECHO (ABHISHEK) Diagnosis/ICD: Unspecified atrial fibrillation-I48.91 Indication: A-FIB CPT Codes: ABHISHEK Complete-24333; Moderate Sedation Services initial 15 minutes patient >5 years-46851 Study Detail: The following Echo studies were [...] sedation. Midazolam and Fentanyl was used to sedatethe patient for this exam. ABHISHEK Procedure: The [...] normal. There is no indication of pulmonic valveregurgitation. Pericardium: No pericardial effusion noted. Aorta: The [...] 53 % LV EF Reported: 53 % [id number] Caroline Dixon MD Electronically signed on 03/10/2024 at 2:57:41 PM Final [facility] CenterUS Heart Transesophagealon 67-94-4629QP EF53 %[facility] Work Phone: [place] [phone] TRANSESOPHAGEAL ECHOCARDIOGRAM REPORT Patient Name: JUAN CARLOS Tenisha RICK Hardy Physician: [id number] Dixon MD Study Date: 03/10/2024 Ordering Provider: [id number] CHEYENNE HORN MRN/PID: [id number] Fellow: Nurse: Sugey Velez RN Date of /Age: 7 1970 / Case Finishing Machine Adjuster: Dottie ALVARADO Gender Assigned at M Additional Staff: : Height: 165.10 cm Admit Date: 03/10/2024 Weight: 68.95 kg Admission Status: Outpatient BSA / BMI: 1.76 m2 / 25.29 Department Location: [address] [place] [address] kg/m2 Blood Pressure: 126 /80 mmHg Study Type: TRANSESOPHAGEAL ECHO (ABHISHEK) Diagnosis/ICD: Unspecified atrial fibrillation-I48.91 Indication: A-FIB CPT Codes: ABHISHEK Complete-44506; Moderate Sedation Services initial 15 minutes patient >5 years-58922 Study Detail: The following Echo studies were [...] sedation. Midazolam and Fentanyl was used to sedatethe patient for this exam. ABHISHEK Procedure: The [...] normal. There is no indication of pulmonic valveregurgitation. Pericardium: No pericardial effusion noted. Aorta: The [...] 53 % LV EF Reported: 53 % [id number] Caroline Dixon MD Electronically signed on 03/10/2024 at 2:57:41 PM Final Caroline Meléndez MD - 03/10/2024 [place] [phone] TRANSESOPHAGEAL ECHOCARDIOGRAM REPORT Patient Name: JUAN CARLOS Steven RICK Reading Physician: [id number] Dixon MD Study Date: 03/10/2024 Ordering Provider: [id number] CHEYENNE HORN MRN/PID: [id number] Fellow: Nurse: Sugey Velez RN Date of /Age: 7 1970 Case Finishing Machine Adjuster: Dottie ALVARADO Gender Assigned at M Additional Staff: : Height: 165.10 cm Admit Date: 03/10/2024 Weight: 68.95 kg Admission Status: Outpatient BSA / BMI: 1.76 m2 / 25.29 Department Location: [address] [place] [address] kg/m2 Blood Pressure: 126 /80 mmHg Study Type: TRANSESOPHAGEAL ECHO (ABHISHEK) Diagnosis/ICD: Unspecified atrial fibrillation-I48.91 Indication: A-FIB CPT Codes: ABHISHEK Complete-34152; Moderate Sedation Services initial 15 minutes patient >5 years-85099 Study Detail: The following Echo studies were [...] sedation. Midazolam and Fentanyl was used to sedatethe patient for this exam. ABHISHEK Procedure: The [...] normal. There is no indication of pulmonic valveregurgitation. Pericardium: No pericardial effusion noted. Aorta: The [...] 53 % LV EF Reported: 53 % [id number] Caroline Dixon MD Electronically signed on 03/10/2024 at 2:57:41 PM Final [facility] Work Phone: UnMer[facility] Work Phone: VERAB/VERIFY ABORHon [id number] group Nom (Bld)O [facility] CenterComment on above:Order Comment: This is for confirming/verifying history of ABORh on file for transfusion of bloodproducts. If this is not for transfusion, please order an ABO/RH [[id number]]. If you have any questions or unsure what to order, please call the blood bank. Performed By: #### VERAB #### LUCIA CRUZ ([id number]) [facility] (Y[facility]) [address] [place] [address] (Bld)PositiveWexner Medical CenterComment on above:Order Comment: This is for confirming/verifying history of ABORh on file for transfusion of bloodproducts. If this is not for transfusion, please order an ABO/RH [[id number]]. If you have any questions or unsure what to order, please call the blood bank.Performed By: #### VERAB #### LUCIA CRUZ ([id number]) [facility] (ELYBB) [address] [place] [address] USVERIFY ABO/Rh Group Teston 40-65-3013MYY group Nom (Bld)O [facility] Ag Ql (Bld)PositivePremier Health Upper Valley Medical CenterXR CHEST 2 VIEWSon 86-69-4012YU CHEST 2 VIEWSInterpreted By: Logan Alva, STUDY: XR CHEST 2 VIEWS; ; 03/10/2024 1:23 pm INDICATION: Signs/Symptoms:Pre-Op Cryoablation. COMPARISON: None. ACCESSION NUMBER(S): [id number] ORDERING CLINICIAN: RACHAEL RIVERA TECHNIQUE: PA and lateral views of the chest were obtained. FINDINGS: The cardiac silhouette is normal. The lungs are normally aerated. IMPRESSION: Normal chest. MACRO: None Signed by: Logan Alva 03/10/2024 1:40 PM Dictation workstation: [id number] Medical CenterXR Chest 2 Viewson 57-78-0318Bmmrzs chest. MACRO: None Signed by: Logan Alva 03/10/2024 1:40 PM Dictation workstation: [id number] MMODALInterpreted By: Logan Alva, STUDY: XR CHEST 2 VIEWS; ; 03/10/2024 1:23 pm INDICATION: Signs/Symptoms:Pre-Op Cryoablation. COMPARISON: None. ACCESSION NUMBER(S): [id number] ORDERING CLINICIAN: RACHAEL RIVERA TECHNIQUE: PA and lateral views of the chest were obtained. FINDINGS: The cardiac silhouette is normal. The lungs are normally aerated. Logan Vincent MD - 03/10/2024 Interpreted By: Logan Alva, STUDY: XR CHEST 2 VIEWS; ; 03/10/2024 1:23 pm INDICATION: Signs/Symptoms:Pre-Op Cryoablation. COMPARISON: None. ACCESSION NUMBER(S): [id number] ORDERING CLINICIAN: RACHAEL RIVERA TECHNIQUE: PA and lateral views of the chest were obtained. FINDINGS: The cardiac silhouette is normal. The lungs are normally aerated. IMPRESSION: Normal chest. MACRO: None Signed by: Logan Alva 03/10/2024 1:40 PM Dictation workstation: [id number] [facility] Work Phone: Radiology Study observation (narrative)[facility] Work Phone: XR Chest 2 ViewsOrdered By: Logan Alva on 03-10-2024 [facility] Work Phone: CT HEART STRUCTURE MORPHOLOGY W IV CONTRASTon 38-91-7498PV HEART STRUCTURE MORPHOLOGY W IV CONTRASTInterpreted By: Abisai Patrick, ADDENDUM: Technical: The following [...] PM -------- ORIGINAL REPORT -------- Dictation workstation: [id number] Interpreted By: Abisai Talbot, STUDY: CT HEART STRUCTURE MORPHOLOGY W IV CONTRAST; 03/05/2024 12:37 pm INDICATION: Signs/Symptoms:atrial fibrillation, prior to cryoablation. with history of atrial fibrillation, being evaluated for radiofrequency ablation of pulmonary veins. Cardiac CTA is requested for evaluation of the pulmonary venous anatomy, including ostial measurements. COMPARISON: None. ACCESSION NUMBER(S): [id number] ORDERING CLINICIAN: CHEYENNE HORN TECHNIQUE: Multi-detector CT [...] The aortic valve is trileafletin morphology. No thickening/calcification. MITRAL VALVE: No thickening/calcification. CORONARY ARTERIES: The study is not optimized [...] of left atrial/left atrial appendage thrombus. Reading Collection Administrator: Dr. Abisai Talbot, Date: 03/05/2024 12:49 pm Signed by: Abisai Talbot 03/05/2024 12:51 PM Dictation workstation: [id number] Medical CenterCT Heart W contrast Braeden 92-87-5533Llutwrhi by Henny Patrick MD on 03/05/2024 3:18 [...] PM -------- ORIGINAL REPORT -------- Dictation workstation: [id number] Private Hospital Work Phone: [phone]. There is normal anatomy of the pulmonary [...] of left atrial/left atrial appendage thrombus. Reading Collection Administrator: Dr. Abisai Talbot, Date: 03/05/2024 12:49 pm Signed by: Abisai Talbot 03/05/2024 12:51 PM Dictation workstation: [id number] MMODALInterpreted By: Abisai Talbot, STUDY: CT HEART STRUCTURE MORPHOLOGY W IV CONTRAST; 03/05/2024 12:37 pm INDICATION: Signs/Symptoms:atrial fibrillation, prior to cryoablation. with history of atrial fibrillation, being evaluated for radiofrequency ablation of pulmonary veins. Cardiac CTA is requested for evaluation of the pulmonary venous anatomy, including ostial measurements. COMPARISON: None. ACCESSION NUMBER(S): [id number] ORDERING CLINICIAN: CHEYENNE HORN TECHNIQUE: Multi-detector CT technology was employed (Peeky CT 64 scanner). Axial, sequential imaging with [...] The aortic valve is trileafletin morphology. No thickening/calcification. MITRAL VALVE: No thickening/calcification. CORONARY ARTERIES: The study is not optimized for the evaluation of coronary arteries. Normal origin of coronary arteries. No significant atherosclerotic or stenotic disease. CORONARY VEINS: The coronary sinus drains normally into the right atrium. PERICARDIUM: There is no pericardial effusion or thickening. MMAbisai Fraser DO / Henny Patrick MD - 03/05/2024 Interpreted By: Abisai Talbot, STUDY: CT HEART STRUCTURE MORPHOLOGY W IV CONTRAST; 03/05/2024 12:37 pm INDICATION: Signs/Symptoms:atrial fibrillation, prior to cryoablation. with history of atrial fibrillation, being evaluated for radiofrequency ablation of pulmonary veins. Cardiac CTA is requested for evaluation of the pulmonary venous anatomy, including ostial measurements. COMPARISON: None. ACCESSION NUMBER(S): [id number] ORDERING CLINICIAN: CHEYENNE HORN TECHNIQUE: Multi-detector CT [...] The aortic valve is trileafletin morphology. No thickening/calcification. MITRAL VALVE: No thickening/calcification. CORONARY ARTERIES: The study is not optimized [...] of left atrial/left atrial appendage thrombus. Reading Collection Administrator: Dr. Abisai Talbot, Date: 03/05/2024 12:49 pm Signed by: Abisai Talbot 03/05/2024 12:51 PM Dictation workstation: [id number] [facility] Work Phone: Radiology Study observation (narrative)[facility] Work Phone: CT Heart W contrast IVOrdered By: Henny Patrick on 15-09-8052NgksogfdwfKeenan Private Hospital Work Phone: Creatinineon 48-76-7096Qjzjekvpcc [Mass/Vol]1.30 mg/dL Normal0.60-1.30Paulding County HospitalComment on above:Result Comment: Hydroxyurea can cause significant interference with creatinine measurement using the i-STAT device. An alternate method of creatinine measurement must be used in patients treated withhydroxyurea.Performed By: #### 2160-0 #### LUCIA CRUZ ([id number]) [facility] ([facility]) [address], [place] [address]Wbbdekfnhd [Mass/Vol]on 22-01-2480TXV/1.73 sq M.predicted MDRD (S/P/Bld) [Vol rate/Area]65 mL/min/{1.73_m2}- [facility] on above:Calculations of estimated GFR are performed using the 2020 CKD-EPI Study Refit equation without therace variable for the IDMS- Traceable Creatinine Methods. https://jasn.asnjournals.org/content/early/ASN.4132480790 Interpretation and review of laboratory resultsNoHarrison Community HospitalUnMercy Health Perrysburg HospitalGFR/1.73 sq M.predicted MDRD (S/P/Bld) [Vol rate/Area]65 mL/min/1.73m*2Normal>=60UnUniversity Hospitals Conneaut Medical CenterComment on above:Result Comment: Calculations of estimated GFR are performed using the 2020 CKD-EPI Study Refit ???equation without the race variable for the IDMS-Traceable Creatinine Methods. https://jasn.asnjournals.org/content/early/ASN.0104482786Kwjwcvebc By: #### 2160-0 #### LUCIA CRUZ ([id number]) [facility] ([facility]) [address] [place] [id number] CREATININE AND GFRon 33-85-0102Hpoyndbori [Mass/Vol]1.3 mg/dL0.60 - 1.30 mg/dLUniversity Hospitals Conneaut Medical Center on above: Hydroxyurea can cause significant interference with creatinine measurement using the i-STAT device.An alternate method of creatinine measurement must be used in patients treated with hydroxyurea.Heart and Vascular Office/Clinic Noteon 52-33-7744Ollti and Vascular Office/Clinic NoteHeart and Vascular Office/Clinic Note Chief Complaint 1 fri f/u - afib History of Present Illness The patient is a 53-year-old male with past cardiac history of mild to moderate CAD, diagnosed at the cardiac catheterization in 2023 in the context of new onset cardiomyopathy, history of paroxysmalatrial fibrillation with failed cardioversion, alcohol abuse, who presents today for scheduled appointment. He was seen by electrophysiology on 12/26/2019 for. A decision was made to start the patienton Multaq while awaiting scheduling for cryoablation PVI [...] but the rate is better controlled. 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 2. Cardiomyopathy (I42.9: Cardiomyopathy, [...] Tobacco Use:., 01/30/2024 Family History Heart disease: Father.[facility]auga Medical CenterComment on above:Result Comment: Electronically Signed By: Antonia RUBIO, Tylor Hairston\Date and Time Signed: 01/30/24 14:54 ESTALL MYOGLOBINon 18-85-8139Dqdffmgeo [Mass/Vol]48 ng/mL 16 - 96 ng/mLNOMS HealthcareALL THYROID STIM HORMONEon 83-50-9309NBA Qn3.05 m[IU]/LNOMS HealthcareCCF CKon 29-45-4894TA [Catalytic activity/Vol]102 U/L39 - 308 U/LNMERCY HOSPITAL WATONGA – [facility] HealthcareNo Panel Informationon 28-85-1293PEOEVONQCVXWE Healthcare MR LUMBAR SPINE WO CONon 71-78-5933[place] [address] Magnetic Resonance Report Signed Patient: JUAN CARLOS NOGUERA MR#: [id number] : 1970 Acct:[id number] Age/Sex: 53 / M ADM Date: 12/31/23 Loc: MRI Attending Dr: Jennifer Avery NP Ordering Physician: Jennifer Avery NP Date of Service: 12/31/23 Procedure(s): MR lumbar spine wo con Accession Number(s): [id number] cc: Moreno Barrera M.D.; Jennifer Avery NP [place] [id number] Patient Name: JUAN CARLOS NOGUERA MRN: [id number] date: 1970 Sex: M Assigned Patient Location: MRI Current Patient Location: Accession/Order Number: [id number] Exam Date: 12/31/2023 12:49 Report Date: 01/01/2024 06:47 At the request of: JENNIFER AVERY Procedure: MR lumbar spine wo con EXAMINATION: MR lumbar spine wo con HISTORY: Lumbar radiculopathy ; chronic low back pain and bilateral leg weakness. COMPARISON: XR lumbar spine 12/05/2022 TECHNIQUE: A variety of imaging planes and parameters were utilized for visualization of suspected pathology. FINDINGS: For the purposes of numbering, sagittal T2 image # 8 extends from the T12 vertebral body superiorly to the S3 level inferiorly. PARASPINAL AREA: Normal with no visible mass. BONES: No fracture, pars defect, or osseous lesion. CORD/CAUDA EQUINA: Normal caliber, contour, and signal intensity. DISC LEVELS: 12-L1: No significant disc/facet abnormality, spinal stenosis, or foraminal stenosis. L1-L2: No significant disc/facet abnormality, spinal stenosis, or foraminal stenosis. L2-L3: Early degenerative disc disease is present without focal protrusion or neural impingement. L3-L4: No significant disc/facet abnormality, spinal stenosis, or foraminal stenosis. L4-L5: Moderate left and mild right foramen narrowing. No significant central canal narrowing. Mild diffuse disc bulging and disc desiccation without disc height reduction. Mild degenerative facet arthropathy. L5-S1: Mild foramen narrowing bilaterally; no significant central canal narrowing. Mild diffuse disc bulging and small posterior disc protrusion. Mild disc height reduction. Moderate left, mild right degenerative facet arthropathy. MR/MR lumbar spine wo con IMPRESSION: 1. Mild to moderate degenerative changes at L4-L5 and L5-S1 without specific findings to account for patient's symptoms. Electronically authenticated by: JENNY MAGAÑA Date: 01/01/2024 06:47 Dictated By: Jenny Magaña M.D. Signed By: 01/01/2449 DD/ TD/TT: Data Manager:IRAMHRadiology, Radiologist, - 01/01/2024 [place] [address] Magnetic Resonance Report Signed Patient: JUAN CARLOS NOGUERA MR#: [id number] : 1970 Acct:[id number] Age/Sex: 53 / M ADM Date: 12/31/23 Loc: MRI Attending Dr: Jennifer Avery NP Ordering Physician: Jennifer Aveyr NP Date of Service: 12/31/23 Procedure(s): MR lumbar spine wo con Accession Number(s): [id number] cc: Moreno Barrera M.D.; Jennifer Avery NP [facility] [place] [id number] Patient Name: JUAN CARLOS NOGUERA MRN: [id number] date: 1970 Sex: M Assigned Patient Location: MRI Current Patient Location: Accession/Order Number: [id number] Exam Date: 12/31/2023 12:49 Report Date: 01/01/2024 06:47 At the request of: JENNIFER BENNIE Procedure: MR lumbar spine wo con EXAMINATION: MR lumbar spine wo con HISTORY: Lumbar radiculopathy ; chronic low back pain and bilateral leg weakness. COMPARISON: XR lumbar spine 12/05/2022 TECHNIQUE: A variety of imaging planes and parameters were utilized for visualization of suspected pathology. FINDINGS: For the purposes of numbering, sagittal T2 image # 8 extends from the T12 vertebral body superiorly to the S3 level inferiorly. PARASPINAL AREA: Normal with no visible mass. BONES: No fracture, pars defect, or osseous lesion. CORD/CAUDA EQUINA: Normal caliber, contour, and signal intensity. DISC LEVELS: 12-L1: No significant disc/facet abnormality, spinal stenosis, or foraminal stenosis. L1-L2: No significant disc/facet abnormality, spinal stenosis, or foraminal stenosis. L2-L3: Early degenerative disc disease is present without focal protrusion or neural impingement. L3-L4: No significant disc/facet abnormality, spinal stenosis, or foraminal stenosis. L4-L5: Moderate left and mild right foramen narrowing. No significant central canal narrowing. Mild diffuse disc bulging and disc desiccation without disc height reduction. Mild degenerative facet arthropathy. L5-S1: Mild foramen narrowing bilaterally; no significant central canal narrowing. Mild diffuse disc bulging and small posterior disc protrusion. Mild disc height reduction. Moderate left, mild right degenerative facet arthropathy. MR/MR lumbar spine wo con IMPRESSION: 1. Mild to moderate degenerative changes at L4-L5 and L5-S1 without specific findings to account for patient's symptoms. Electronically authenticated by: JENNY MAGAÑA Date: 01/01/2024 06:47 Dictated By: Jenny Magaña M.D. Signed By: 01/01/2449 DD/ 6 TD/TT: Data Manager: KAVITHA CotterRadiology Study observation (narrative)KAVITHA [facility] LUMBAR SPINE WO CONOrdered By: Radiologist Radiology on 70-36-2401[facility] Work Phone: Heart and Vascular Office/Clinic Noteon 12-30-2023 Heart and Vascular Office/Clinic NoteHeart and Vascular Office/Clinic Note Chief Complaint f/u after EP appt History of Present Illness The patient is a 53-year-old male with past cardiac history of mild to moderate CAD, diagnosed at the cardiac catheterization in 2023 in the context of new onset cardiomyopathy, history of paroxysmalatrial fibrillation with failed cardioversion, alcohol abuse, who presents today for scheduled appointment. He was seen by electrophysiology on 12/26/2019 for. A decision was made to start the patienton Multaq while awaiting scheduling for cryoablation PVI [...] Tobacco Use:., 12/30/2023 Family History Heart disease: Father.[facility] Medical CenterComment on above:Result Comment: Electronically Signed By: Antonia RUBIO, Tylor Potter\.br\Date and Time Signed: 12/30/23 15:02 EDTEG 12 [place] 46-98-0916Zew [facility] Work Phone: [facility] Work Phone: Heart and Vascular Office/Clinic Noteon 11-28-2023 Heart and Vascular Office/Clinic NoteHeart and Vascular Office/Clinic Note Chief Complaint f/u [...] More recently, he was at [facility] for some rehabilitation in was advised to [...] Tobacco Use:., 11/28/2023 Family History Heart disease: Father.[facility] Medical CenterComment on above:Result Comment: Electronically Signed By: Antonia RUBIO, Tylor Clark.br\Date and Time Signed: 11/28/23 12:09 EDTCholesterol [Mass/volume] in Serum or PlasmaOrdered By: Ronaldo Castro on 95-06-7600Zhmdyhcgkpm [Mass/Vol]110 mg/mYFmy277-971 [facility] CenterComment on above:Chol less than 200 mg/dl low riskChol 201-239 mg/dl borderline riskChol 240 mg/dl and greater high risk Cholesterol in LDL Calc [Mass/Vol]Ordered By: Ronaldo Castro on 60-28-3900Pnlwvwmayos in LDL [Mass/Vol]61 mg/dL0-100[facility] CenterComment on above:LDL ATP III CLASSIFICATIONLDL less than 100 mg/dL OptimalLDL 100-129 mg/dL Near or above khblrptHKQ356-146 mg/dL Borderline highLDL 160-189 mg/dL HighLDL greater than 189 mg/dL Very highCholesterol in VLDL Calc [Mass/Vol]Ordered By: Ronaldo Castro on 48-27-7628Hethrawiasr in VLDL [Mass/Vol]16 mg/dLSelect Medical Specialty Hospital - Akronerum or plasma high density lipoprotein (HDL) cholesterol measurementOrdered By: Ronaldo Castro on 30-79-4746Opmnweedipr in HDL [Mass/Vol]32 mg/bK51-17ZtyooqmelAshtabula County Medical CenterComment on above:HDL CHOL ATP-III CLASSIFICATION Cardiovascular RiskHDL > or equal to 60 mg/dL LOWHDL < 40 mg/dL HIGHSerum or plasma total cholesterol/high density lipoprotein (HDL) cholesterol mass rat Ordered By: Ronaldo Castro on 31-53-4697Ksiklnqyowy.total/Cholesterol in HDL [Mass ratio]3.4 {ratio}<5.0[facility] Medical CenterThyrotropin [Units/volume] in Serum or PlasmaOrdered By: Ronaldo Castro on 11-07-2023 TSH Qn0.87 m[IU]/L0.45-5.33[facility] CenterTriglyceride [Mass/volume] in Serum or PlasmaOrdered By: Ronaldo Castro on 11-07-2023 Triglyceride [Mass/Vol]84 mg/dL0-149[facility] CenterComment on above:TRIG ATP III CLASSIFICATIONTRIG less than 150 mg/dL NormalTRIG 150-199 mg/dL Borderline highTRIG 200-500 mg/dL High TRIG greater than 500 mg/dL Very highStandard traceable to the Center for Disease Conrtrol and Prevention (CDC) test method.Vitamin D+Metabolites [Mass/volume] in Serum or PlasmaOrdered By: Ronaldo Castro on 01-79-9006Jsxxrqk D+Metabolites [Mass/Vol]28.2 ng/mLLow 30-100[facility] CenterComment on above:VITAMIN D STATUS 25(OH)VITAMIN D RANGE (ng/mL) Deficient <20 Insufficient 20 to <92Ubrrsdptin01 to 100Reference: Zaida MF,[place], Sindi RAMACHANDRAN, et al. Evaluation,treatment, and prevention of vitamin D deficiency; an Endocrine Society clinical practice guideline. JCEM. 2010; 96(7):1911-30.Alanine aminotransferase [Enzymatic activity/volume] in Serum or PlasmaOrdered By: Gem Mcintosh on 54-87-7678ENQ [Catalytic activity/Vol]14 U/L7-52[facility] CenterAlbumin [Mass/volume] in Serum or Plasma by Bromocresol green (BCG) dye binding methoOrdered By: Gem Mcintosh on 14-92-7007Cpfeizt BCG dye [Mass/Vol]4.3 g/dL3.5-5.7FSelect Medical TriHealth Rehabilitation HospitalAlkaline phosphatase [Enzymatic activity/volume] in Serum or PlasmaOrdered By: Gem Mcintosh on 45-56-4311VRZ [Catalytic activity/Vol]61 U/W67-479VufwubgheAshtabula County Medical CenterAmphetamine Screen Ql (U)Ordered By: Gem Mcintosh on 11-06-2023 Amphetamines Ql (U)NegativeNegativeAshtabula County Medical CenterAspartate aminotransferase [Enzymatic activity/volume] in Serum or PlasmaOrdered By: Gem Mcintosh on 02-49-3372TGK [Catalytic activity/Vol]15 U/X86-14DqyxxyujkAshtabula County Medical CenterAutomated epithelial cells count in urine sediment (number/area)Ordered By: Gem Mcintosh on 69-52-7894Fevqilaqia cells Auto (Urine sed) [#/Area]1-2 [HPF]0-2FSelect Medical TriHealth Rehabilitation HospitalBacteria [Presence] in Urine by AutomatedOrdered By: Gem Mcintosh on 04-54-8046Rasfzeqf Auto Ql (U)None seen [HPF]None SeenAshtabula County Medical Center Barbiturates [Presence] in Urine by Screen methodOrdered By: Gem Mcintosh on 77-29-4677Yyoaswpizyfw Screen Ql (U)NegativeNegativeAshtabula County Medical CenterBasophils Auto (Bld) [#/Vol]Ordered By: Gem Mcintosh on 11-06-2023 Basophils (Bld) [#/Vol]0.2 10*3/uL0.0-0.2FSelect Medical TriHealth Rehabilitation Hospital Basophils/100 WBC Auto (Bld)Ordered By: Gem Mcintosh on 11-06-2023 Basophils/100 WBC (Bld)1.2 %.[facility] Medical CenterBenzodiazepines Screen Ql (U)Ordered By: Gem Mcintosh on 02-97-5102Nvttxxszmrsphgq Ql (U) NegativeNegativeAshtabula County Medical CenterBenzoylecgonine [Presence] in Urine by Screen methodOrdered By: Gem Mcintosh on 05-91-3053Bdsnfjbqqmvdpiw Screen Ql (U)NegativeNegativeAshtabula County Medical CenterBilirubin Test strip Ql (U)Ordered By: Gem Mcintosh on 91-51-9592Esylwxdeh Ql (U)Negative NegativeAshtabula County Medical CenterBilirubin.total [Mass/volume] in Serum or PlasmaOrdered By: Gem Mcintosh on 91-60-7425Zfffcjmbc [Mass/Vol]0.6 mg/dL 0.3-1.0[facility] Medical CenterCOVID CepheidOrdered By: Gem Mcintosh on 33-79-0184IDOB-CoV-2 (COVID-19) Ab IA QlNegativeNegOhio State Harding HospitalComment on above:This is a duplicate DataNitro Xpert Xpress CoV- 2/Flu/RSV Plus RNA by RT-PCR result to be used for statistical tracking purpose only.SARS-CoV-2 (COVID-19) RNA ARAVIND+probe Ql (Unsp spec)[facility] CenterCalcium [Mass/volume] in Serum or PlasmaOrdered By: Gem Mcintosh on 20-35-0324Yizyadu [Mass/Vol]9.0 mg/dL8.6-10.3FSelect Medical TriHealth Rehabilitation HospitalCannabinoids [Presence] in Urine by Screen methodOrdered By: Gem Mcintosh on 78-12-4038Xptjksjmwlwh Screen Ql (U)NegativeNegOhio State Harding HospitalComment on above:These are unconfirmed results and should not be used for legal purposes. Drug Cut-Off Concentration: AMPH 1000 ng/mL WILLIAM 200 ng/mL SALIMA 200 ng/mL COCM 300 ng/mL OP 300 ng/mL PCP 25 ng/mL THC 20 ng/mLCarbon dioxide, total [Moles/volume] in Serum or PlasmaOrdered By: Gem Mcintosh on 44-43-2952FZ9 [Moles/Vol]29.4 mmol/L21.0-31.0[facility] Medical CenterChloride [Moles/volume] in Serum or PlasmaOrdered By: Gem Mcintosh on 33-08-9000Jhbtqfxv [Moles/Vol]102 mmol/M18-911OiilcislpAshtabula County Medical CenterColor Auto (U)Ordered By: Gem Mcintosh on 80-82-5869Bdrvv (U) YellowYellowAshtabula County Medical CenterCreatinine [Mass/volume] in Serum or PlasmaOrdered By: Gem Mcintosh on 89-18-3725Nymuliossm [Mass/Vol]0.98 mg/dL 0.70-1.30[facility] Medical CenterEosinophils Auto (Bld) [#/Vol]Ordered By: Gem Mcintosh on 72-16-0274Wrzbfltwymj (Bld) [#/Vol]0.2 10*3/uL0.0-0.45 [facility] CenterEosinophils/100 WBC Auto (Bld)Ordered By: Gem Mcintosh on 57-19-6329Arcxvkuenfc/100 WBC (Bld)1.2 %.[facility] Medical CenterErythrocyte distribution width Auto (RBC) [Ratio]Ordered By: Gem Mcintosh on 67-12-9760Zcicfviafuu distribution width (RBC) [Ratio]13.6 % 12.0-14.8[facility] Medical CenterErythrocytes [#/area] in Urine sediment by Automated countOrdered By: Gem Mcintosh on 55-74-9594ZIR Auto (Urine sed) [#/Area]1-2 [HPF]0-4FSelect Medical TriHealth Rehabilitation HospitalEthanol [Mass/volume] in Serum or PlasmaOrdered By: Gem Mcintosh on 96-86-0251Pnmywzx [Mass/Vol]mg/dLAshtabula County Medical CenterEthanol [Mass/Vol]TNPAshtabula County Medical CenterComment on above:Test not performedGlobulin Calc (S) [Mass/Vol]Ordered By: Gem Mcintosh on 30-08-6275Ddnbfrrp (S) [Mass/Vol]2.4 g/dLAshtabula County Medical CenterGlucose [Mass/volume] in Serum or Plasma Ordered By: Gem Mcintosh on 04-08-3440Ctzmeff [Mass/Vol]101 mg/nCRfbb16-800 [facility] CenterComment on above:ADA recommended reference rangeRandom Glucose Reference Range is dependent on time and content of last meal. Glucose of more than 200 mg/dL in a nonstressed, ambulatory subject supports the diagnosisof Diabetes Mellitus.Hematocrit Auto (Bld) [Volume fraction]Ordered By: Gem Mcintosh on 29-97-0691Hywdumlhzc (Bld) [Volume fraction]42.2 %38.8-50.0[facility] Medical CenterHemoglobin [Mass/volume] in BloodOrdered By: Gem Mcintosh on 91-36-9190Gwwvahkssf (Bld) [Mass/Vol]14.2 g/dL13.0-17.0[facility] Medical CenterKetones Auto test strip (U) [Mass/Vol]Ordered By: Gem Mcintosh on 37-94-5234Jpkgtux (U) [Mass/Vol]TraceHighNegativeAshtabula County Medical CenterLaboratory - UrinalysisOrdered By: Gem Mcintosh on 74-73-9790Lmxmdom casts LM Ql (Urine sed)0-8 [LPF]0-8[facility] Medical CenterLeukocytes [#/area] in Urine sediment by Automated countOrdered By: Gem Mcintosh on 80-94-1961DZD Auto (Urine sed) [#/Area]1-2 [HPF]0-4FSelect Medical TriHealth Rehabilitation HospitalLeukocytes [#/volume] corrected for nucleated erythrocytes in Blood by Automated coun Ordered By: Gem Mcintosh on 51-58-5890DMN corrected for nucl RBC Auto (Bld) [#/Vol]13.5 10*3/uLHigh4.1-10.5FSelect Medical TriHealth Rehabilitation HospitalLymphocytes Auto (Bld) [#/Vol]Ordered By: Gem Mcintosh on 17-21-2013Frvbimkuglh (Bld) [#/Vol] 2.9 10*3/uL1.00-4.8[facility] Medical CenterLymphocytes/100 WBC Auto (Bld)Ordered By: Gem Mcintosh on 86-69-5731Lsfuusvuvjb/100 WBC (Bld)21.6 %. [facility] Medical CenterMCH Auto (RBC) [Entitic mass]Ordered By: Gem Mcintosh on 43-86-5723ERE (RBC) [Entitic mass]30.9 pg27.5-35.2FSelect Medical TriHealth Rehabilitation HospitalMCHC Auto (RBC) [Mass/Vol]Ordered By: Gem Mcintosh on 11-06-2023 MCHC (RBC) [Mass/Vol]33.8 g/dL32.5-35.6FSelect Medical TriHealth Rehabilitation HospitalMCV Auto (RBC) [Entitic vol]Ordered By: Gem Mcintosh on 23-17-3304TQA (RBC) [Entitic vol]91.6 fL83.5-101[facility] Medical CenterMonocyte distribution width [Entitic volume] in Blood by AutomatedOrdered By: Gem Mcintosh on 11-06-2023 Monocyte distribution width Auto (Bld) [Entitic vol]16.55 %0.00-20.00[facility] CenterMonocytes Auto (Bld) [#/Vol]Ordered By: Gem Mcintosh on 00-53-1286Ahxwczouv (Bld) [#/Vol]1.3 10*3/uLHigh0.0-0.8[facility] CenterMonocytes/100 WBC Auto (Bld)Ordered By: Gem Mcintosh on 65-43-9033Bxkoysqfy/100 WBC (Bld)9.6 %.[facility] Neutrophils Auto (Bld) [#/Vol]Ordered By: Gem Mcintosh on 11-06-2023 Neutrophils (Bld) [#/Vol]9.0 10*3/uLHigh1.8-7.7FSelect Medical TriHealth Rehabilitation Hospital Neutrophils/100 WBC Auto (Bld)Ordered By: Gem Mcintosh on 11-06-2023 Neutrophils/100 WBC (Bld)66.4 %.[facility] CenterNitrite Test strip Ql (U)Ordered By: Gem Mcintosh on 42-99-2977Muhbmzb Ql (U)Negative NegativeAshtabula County Medical CenterNo Panel InformationOrdered By: Gem Mcintosh on 38-44-8067Xdlybkpti GFR (CKD-EPI)> 60.0 mL/MinAshtabula County Medical CenterPharmacy Creatinine Clearance (Chem99.02[facility] CenterNucleated erythrocytes [Presence] in Blood by Automated countOrdered By: Gem Mcintosh on 32-43-2128Rojqftwxw RBC Auto Ql (Bld)0.1 /100{WBC}0-0.5 [facility] CenterOpiates [Presence] in Urine by Screen method Ordered By: Gem Mcintosh on 34-47-4822Goxbbcp Screen Ql (U)NegativeNegative [facility] CenterPhencyclidine Screen Ql (U)Ordered By: Gem Mcintosh on 61-00-0578Bcddkrydjhmgh Ql (U)NegativeNegativeAshtabula County Medical CenterPlatelet mean volume Auto (Bld) [Entitic vol]Ordered By: Gem Mcintosh on 25-00-7094Etgzfzuv mean volume (Bld) [Entitic vol]8.3 fL6.6-10.1 [facility] CenterPlatelets Auto (Bld) [#/Vol]Ordered By: Gem Mcinotsh on 40-83-7921Kfqllxefj (Bld) [#/Vol]350 10*3/gL441-391MngkclooiAshtabula County Medical CenterPotassium [Moles/volume] in Serum or PlasmaOrdered By: Gem Mcintosh on 84-91-0590Doykdwsjh [Moles/Vol]4.2 mmol/L3.5-5.1FSelect Medical TriHealth Rehabilitation HospitalProtein Auto test strip (U) [Mass/Vol]Ordered By: Gem Mcintosh on 41-72-3993Bwmriex (U) [Mass/Vol]30 mg/dLHighNegOhio State Harding HospitalProtein [Mass/volume] in Serum or PlasmaOrdered By: Gem Mcintosh on 60-89-2706Scdckor [Mass/Vol]6.7 g/dL6.4-8.9[facility] RBC Auto (Bld) [#/Vol]Ordered By: Gem Mcintosh on 18-18-9111QTE (Bld) [#/Vol] 4.61 10*6/uL3.90-5.60[facility] - Akronerum or plasma albumin/globulin mass ratioOrdered By: Gem Mcintosh on 11-06-2023 Albumin/Globulin [Mass ratio]1.8 {ratio}[facility] - Akronerum or plasma anion gap determinationOrdered By: Gem Mcintosh on 32-45-1385Zycvl gap [Moles/Vol]9.8 mmol/L6.0-15.0[facility] - Akronodium [Moles/volume] in Serum or PlasmaOrdered By: Gem Mcintosh on 82-64-8929Bjmjql [Moles/Vol]137 mmol/S303-817JsznusefcSelect Medical Specialty Hospital - Akronpecific gravity Auto test strip (U) [Rel density]Ordered By: Gem Mcintosh on 11-06-2023 Specific gravity (U) [Rel density]1.0171.001-1.030[facility] CenterUrea nitrogen [Mass/volume] in Serum or PlasmaOrdered By: Gem Mcintosh on 00-63-6640Nfst nitrogen [Mass/Vol]9 mg/dL7-25[facility] CenterUrine clarity by refractometry automatedOrdered By: Gem Mcintosh on 07-11-3421Nbfcpku Refractometry automated (U)ClearCleWhite HospitalUrine glucose measurement by automated test strip (mass/volume) Ordered By: Gem Mcintosh on 12-36-6630Iixvxwu Auto test strip (U) [Mass/Vol] Normal mg/dLNormSelect Medical Specialty Hospital - YoungstownUrine hemoglobin detection by automated test stripOrdered By: Gem Mcintosh on 46-85-0020Mtsmnzhefq Auto test strip Ql (U)NegativeNegOhio State Harding HospitalUrine leukocyte esterase detection by automated test stripOrdered By: Gem Mcintosh on 88-04-8021Pigqzostb esterase Auto test strip Ql (U)NegativeNegOhio State Harding HospitalUrobilinogen Auto test strip (U) [Mass/Vol]Ordered By: Gem Mcintosh on 18-56-1764Hueailibbjjb (U) [Mass/Vol]Normal mg/dLWooster Community HospitalWBC Auto (Bld) [#/Vol]Ordered By: Gem Mcintosh on 44-36-8560CZC (Bld) [#/Vol]13.5 10*3/uLHigh4.1-10.5FSelect Medical TriHealth Rehabilitation HospitalpH Auto test strip (U)Ordered By: Gem Mcintosh on 21-03-5098yN (U)6.0 [pH]5.0-9.0[facility] CenterHeart and Vascular Office/Clinic Noteon 34-53-9910Wtdly and Vascular Office/Clinic NoteHeart and Vascular Office/Clinic Note Chief Complaint c/o [...] fatigue. He was referred to clinical cardiac electrophysiolog y and is currently waiting for an appointment. [...] exam. On Coreg, Entresto. 3. 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 No role for aspirin, as on anticoagulation with Eliquis. Ordered: Holter Monitor 48 hr 4. Fatigue (R53.83: Other fatigue) Multifactorial, probably related to #1. The patient has an appointment with Dr. Kory MCCOLLUM. Ordered: Holter Monitor 48 hr Follow-up [...] Tobacco Use:., 10/07/2023 Family History Heart disease: Father.[facility] CenterComment on above:Result Comment: Electronically Signed By: Antonia RUBIO, Tylor Potter\.br\Date and Time Signed: 10/07/23 14:59 EDTCoding Summary.on 80-75-8902Lgnldc Summary. ECZPMlir55ZMs2zTm+PGhlYWQ+FR3SIDXiU69pmILgpT1lD5XENWnFCbrtORYXMKqPJeQxxhVtPP3ycK NjZXJu [file] cHPbOeQvn7cgP (more content not included)...[facility] Physician Orderon 40-16-8531Sedgdreue Order [id number]#1.00TIFFNormUniversity Hospitals Beachwood Medical CenterConsent for Treatmenton 02-87-6860Flslafi for Treatment [id number]#1.00TIFFNormUniversity Hospitals Beachwood Medical CenterHeart and Vascular Office/Clinic Noteon 46-13-5798Gorhr and Vascular Office/Clinic NoteChief Complaint s/p DCC 07/31/23 History of Present [...] to clinical cardiac electrophysiology for a discussion regardinginvasive or pharmacological management of the atrial fibrillation. Continue Eliquis for cardioembolic protection. Sleep study will be ordered, as well, due to suspicion for an obstructive sleep apnea. Ordered: ECG 12 Lead Adult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 associated with ADD. He also wonders about [place] [employer] program. Intake Intake Intake Have you had any falls?: No Health Information: Yes Is patient in pain?: 0 Reason for visit: Anxiety, Depression Accompanied by: Self Feel stressed/tense/nervous/anxious/difficulty sleeping: to some extent PHQ-2/PHQ-9 PHQ-2 Over [...] and colleagues, with an educational damian from [employer]. COVID-19 Patient Screening COVID-19 Screening Contact with [...] dizziness and Denies headache(s) (more content not included)...[facility]AM[facility] Internal [place] [id number] Office Visit Internal [place] [id number] Medical Records Department AMB Office Visit Internal Med Name: JUAN CARLOS NOGUERA Pt Type: DEP AMB MR #: [id number] Room AND Bed: Date of : 1970 [...] finger, Anxiety, Depression Accompanied by: Self Feel stressed/tense/nervous/anxious/difficulty sleeping: only a little PHQ-2/PHQ-9 PHQ-2 Over [...] and colleagues, with an educational damian from [employer]. COVID-19 Patient Screening COVID-19 Screening Contact with COVID positive or high risk person(s): No COVID-19 Symptoms: No Physician History Physician Specialist Physician: Oswaldo Bonilla [facility] Medical History Anxiety disorder History of [...] intake frequency: carbonated be (more content not included)...[facility]ulatoryAM[facility] Internal [place] [id number] Office Visit Internal [place] [address] Medical Records Department AMB Office Visit Internal Med Name: RICKJUAN CARLOS Tenisha Pt Type: DEP AMB MR #: [id number] Room AND Bed: Date of : 1970 Date of Service: 03/12/21 Age: 50 Ordering Doctor: Sex: Male Family Doctor: Diana Peoples MD Order #: Dictating Doctor: Marie Mckenzie EVENT SET UP SPECIALIST Admit Date: Referring Doctor: Other Doctor: Additional [...] Anxiety, Depression, Insomnia Accompanied by: Self Feel stressed/tense/nervous/anxious/difficulty sleeping: only a little PHQ-2/PHQ-9 PHQ-2 Over [...] Matthew/Lymph Hematologic/Lymphatic: Denies eas (more content not included)...[facility]AM[facility] Internal [place] [id number] Office Visit Internal [place] [address] Medical Records Department AMB Office Visit Internal Med Name: RICKJUAN CARLOS Tenisha Pt Type: [facility] MR #: [id number] Room AND Bed: Date of : 1970 [...] Establishment, Anxiety, Depression Accompanied by: Self Feel stressed/tense/nervous/anxious/difficulty sleeping: not at all COVID-19 Patient Screening [...] HENMT Ears: TM's normal (more content not included)...[facility] AmbulatoryBASIC METABOLIC PANELon 30-21-5443Cwhfc gap [Moles/Vol]10 mmol/LNormal -15Memorial HospitalComment on above:Performed By: #### WNT791 #### [place] [address] BUN/CREAT RATIO12 (CALC)Normal7.0-25.0Memorial HospitalComment on above:Performed By: #### KSQ502 #### [place] [address] Calcium [Mass/Vol]8.0 mg/dLLow8.5-10.5Memorial HospitalComment on above:Performed By: #### LPO991 #### [place] [address] Chloride [Moles/Vol]105 mmol/VKshera80-926CshwtMemorial Hospital Comment on above:Performed By: #### UWK219 #### [place] [phone] EY1 [Moles/Vol]21 mmol/XNrybkr95-99KrxhwMemorial HospitalComment on above:Performed By: #### YGF531 #### [place] [phone] Creatinine [Mass/Vol]0.9 mg/dLNormal0.5-1.4[facility] Comment on above:Performed By: #### BQT811 #### [place] [address] ESTIMATED GFR99 ML/MIN/1.99I7HqgwjrUdwddMemorial HospitalComment on above:Result Comment: IF THE PATIENT IS , PLEASE MULTIPLY THIS BY 1.159. THIS RESULT HAS BEEN CALCULATED ASSUMING THE PATIENT IS NON- AMERICANPerformed By: #### ZMC678 #### [place] [address] Glucose [Mass/Vol]126 mg/jNLahw23-01SvrgxGalion HospitalComment on above:Performed By: #### RZT164 #### [place] [address] Potassium [Moles/Vol]4.5 mmol/LNormal3.4-5.3MGalion Hospital Comment on above:Performed By: #### ZAL911 #### [place] [address] Sodium [Moles/Vol]136 mmol/MKbtzev137-077ManuuMemorial Hospital Comment on above:Performed By: #### YVS565 #### [place] [phone] Urea nitrogen [Mass/Vol]11 mg/dLNormal3-29[facility] Comment on above:Performed By: #### YAF720 #### [place] [address] COMPLETE BLOOD COUNTon 93-89-2580Lmsjjozevaj distribution width (RBC) [Ratio]14.3 %Normal9.0-15.0Memorial HospitalComment on above:Performed By: #### BBG072 #### [place] [address] Hematocrit (Bld) [Volume fraction]34.8 %Low41.0-50.0Memorial HospitalComment on above:Performed By: #### MWO483 #### [place] [address] Hemoglobin (Bld) [Mass/Vol]11.9 g/dLLow13.8-17.2MGalion HospitalComment on above:Performed By: #### ZRO757 #### [place] [address] MCH (RBC) [Entitic mass]30.4 wzXodqpy76.0-33.0[facility] Comment on above:Performed By: #### ESN273 #### [place] [address] MCHC (RBC) [Mass/Vol]34.0 g/uOMqklym89.0-36.0[facility] Comment on above:Performed By: #### GRI595 #### [place] [address] MCV (RBC) [Entitic vol]89.4 sHSddqjb25.0-100.0[facility] Comment on above:Performed By: #### CRZ496 #### [place] [phone] Platelets (Bld) [#/Vol]168 10*3/vFWgxtiz913-549JijpiMemorial Hospital Comment on above:Performed By: #### MJB651 #### [place] [address] RBC COUNT3.90 M/VQ1Kjx5.40-5.80Memorial HospitalComment on above:Performed By: #### TGI827 #### [address] WBC (Bld) [#/Vol]19.5 10*3/uLHigh3.8-10.8[facility] Comment on above:Performed By: #### OHD437 #### [place] [address] DRUG SCREEN, URINEon 86-29-1097BMEDMPJYHEV, URINENot detectedNormal NONDTMiaBrecksville VA / Crille HospitalComment on above:Performed By: #### SRO630 #### [address] BARBITURATES, URINENot detectedNormalSamaritan Hospital Comment on above:Performed By: #### LKA208 #### [place] [address] BENZODIAZEPINE, URINEPositiveAbnoOhio State East Hospital Comment on above:Performed By: #### LFR655 #### [address] COCAINE, URINENot detectedNormalSamaritan HospitalComment on above:Performed By: #### PKF927 #### [place] [address] COMMENT, URINE DRUG SCREENNormWayne HospitalComment on above:Result Comment: The submitted urine specimen was screened for the presence of the following compounds at the listed detection limits: Amphetamine, Methamphetamine 1000 ng/ml Barbiturate 200 ng/ml Benzodiazepines 300 ng/ml Cannabinoids 50 ng/ml Cocaine Metabolite 300 ng/ml Opiates 300 ng/ml Detection limit in a given specimen may vary depending upon which drug class members and/or metabolites are present. Test performed at [facility] [place], [place]Performed By: #### AWE430 #### [place] [address] OPIATES, URINENot detectedNoOhio State East HospitalComment on above:Performed By: #### YJD900 #### [place] [address] THCNot detectedNoOhio State East HospitalComment on above: Performed By: #### NPP391 #### [place] [address] SARS COV 2 RNA, QL REAL TIME RT PCRon 81-26-0303IVDF-CoV-2 (COVID- 19) RNA ARAVIND+probe Ql (Unsp spec)Not detectedNoBlanchard Valley Health System Comment on above:Result Comment: Reference Range = NOT DETECTEDPerformed By: #### YRF016 #### [place] [address] RXKG-CiA-1 (COVID-19) RNA ARAVIND+probe Ql (Unsp spec)(NOTE)[facility] HospitalCombrighton hospital on above:Result Comment: The SARS CoV-2 RNA, Qualitative Real-Time RT-PCR test is a qualitative multi-target molecular diagnostic test that aids in the detection of COVID-19. This test has been authorized by the FDA under an Emergency Use Authorization (EUA) for use by authourized laboratories. Refer to www.cdc.gov for additional information about Coronavirus disease 2019.Performed By: #### YDD417 #### [place] [address] URINALYSISon 08-12-5149Kfwwekaivn (U)CLEARNormalMercy Health – The Jewish Hospital HospitalComment on above:Performed By: #### EDP839 #### [place] [address] BACTERIA, URINENONE SEENNormalNSMercy Health – The Jewish Hospital HospitalComment on above:Performed By: #### DKC252 #### [place] [address] BILIRUBIN, URINENegativeNormalNEGMercy Health – The Jewish Hospital HospitalComment on above:Performed By: #### CXO704 #### [place] [address] BLOOD, URINENegativeNormalNEGMercy Health – The Jewish Hospital HospitalComment on above: Performed By: #### YHC876 #### [place] [address] Color (U)NormalMiaBucyrus Community Hospital HospitalComment on above:Result Comment: YELLOW Reference Range: Yellow and ColorlessPerformed By: #### QHU646 #### [place] [address] Glucose Ql (U)NegativeNormalNEGMercy Health – The Jewish Hospital HospitalComment on above:Performed By: #### GQI423 #### [place] [address] HYALINE DBGZZixfksQ48Bduxt Valley HospitalComment on above:Result Comment: 0-5 REFERENCE RANGE: 0-5 HYALINE CASTS NONE SEEN FOR NON HYALINE CASTSPerformed By: #### IIG099 #### [place] [address] KETONE, URINENegativeNormalNEGMiami Valley HospitalComment on above: Performed By: #### CPG121 #### [place] [address] LEUKOCYTES, URINENegativeNormnyNEGMemorial HospitalComment on above:Performed By: #### IIB962 #### [place] [address] MUCUS, URINEPRESENTNormalMemorial HospitalComment on above: Performed By: #### OBV842 #### [place] [address] NITRITES, URINENegativeNormalNEGMemorial HospitalComment on above:Performed By: #### MYD916 #### [place] [phone] pH (U)6.0 [pH]Normal4.5-8.0Memorial HospitalComment on above: Performed By: #### WDX669 #### [place] [address] Protein (U) [Mass/Vol]10 mg/dLAbnoHenry County Hospital Comment on above:Performed By: #### APB356 #### [place] [address] RBC, URINE6-11KvjsbkcvK55VgyvjMemorial HospitalComment on above: Performed By: #### PJG191 #### [place] [address] RENAL EPITHELIAL CELLS, URINE0-4ZsfjkwU36Tkjnp[address] [place] [address] Comment on above:Performed By: #### QWL010 #### [place] [address] SPECIFIC GRAVITY, URINE1.256Watz4.005-1.030[facility] Comment on above:Result Comment: Urine specific gravity may be affected by X-ray dye, high glucose, high protein, and some chemotherapeutic drugs. Clinical correlation is recommended.Performed By: #### QRM923 #### [place] [phone] SQUAMOUS EPITHEAL CELLS, URINE0-0VrvhxdB76Gfzee[address] Comment on above:Performed By: #### DWE921 #### [place] [address] UROBILINOGEN, URINE<2Normal<2MiaBrecksville VA / Crille HospitalComment on above: Performed By: #### KXZ185 #### [place] [address] WBC, URINE0-5CyelqdC48Demsy18 Hancock StreetComment on above: Performed By: #### UIJ949 #### [place] [address] ACTIVATED PARTIAL THROMBOPLASTIN TIMEon 70-10-6814fCSK Coag (Bld) [Time]26.0 wYntzwe01.5-35.2MiaBrecksville VA / Crille HospitalComment on above:Performed By: #### QZO451 #### [place] [address] BASIC METABOLIC PANELon 31-42-7085Bgaun gap [Moles/Vol]11 mmol/L Normal5-15Memorial HospitalComment on above:Performed By: #### NER309 #### [place] [address] BUN/CREAT RATIO10 (CALC)Normal7.0-25.0Memorial HospitalComment on above:Performed By: #### QIB137 #### [place] [address] Calcium [Mass/Vol]7.4 mg/dLLow8.5-10.5Memorial HospitalComment on above:Performed By: #### SJT345 #### [place] [address] Chloride [Moles/Vol]103 mmol/BTctcqs18-426VbuduMemorial Hospital Comment on above:Performed By: #### UOZ925 #### [place] [address] GL7 [Moles/Vol]20 mmol/GHctkog94-39WycjnMemorial HospitalComment on above:Performed By: #### KSN894 #### [address] Creatinine [Mass/Vol]1.0 mg/dLNormny0.5-1.4[facility] Comment on above:Performed By: #### LJL677 #### [address] ESTIMATED GFR87 ML/MIN/1.64P4WqhomsNxngfMemorial HospitalComment on above:Result Comment: IF THE PATIENT IS , PLEASE MULTIPLY THIS BY 1.159. THIS RESULT HAS BEEN CALCULATED ASSUMING THE PATIENT IS NON- AMERICANPerformed By: #### FID787 #### [place] [address] Glucose [Mass/Vol]206 mg/zGOmtz66-14ImwrwGalion HospitalComment on above:Performed By: #### OBJ192 #### [address] Potassium [Moles/Vol]4.8 mmol/LNormal3.4-5.3MGalion Hospital Comment on above:Result Comment: HEMOLYZED POTASSIUM RESULTS ARE ELEVATED BY SPECIMEN HEMOLYSISPerformed By: #### TIQ317 #### [place] [address] Sodium [Moles/Vol]134 mmol/HVyw216-329IybcuMemorial HospitalComment on above:Performed By: #### NDA191 #### [place] [address] Urea nitrogen [Mass/Vol]10 mg/dLNormal3-29[facility] Comment on above:Performed By: #### QQI180 #### [place] [address] COMPLETE BLOOD COUNTon 59-37-4679Vszezujgnqs distribution width (RBC) [Ratio]14.0 %Normal9.0-15.0Memorial HospitalComment on above:Performed By: #### BPB089 #### [place] [address] Hematocrit (Bld) [Volume fraction]40.4 %Low41.0-50.0Memorial HospitalComment on above:Performed By: #### EOE111 #### [place] [address] Hemoglobin (Bld) [Mass/Vol]13.7 g/dLLow13.8-17.2MGalion HospitalComment on above:Performed By: #### ECL626 #### [place] [address] MCH (RBC) [Entitic mass]30.4 aaNjymyl84.0-33.0[facility] Comment on above:Performed By: #### SLD412 #### [place] [address] MCHC (RBC) [Mass/Vol]33.9 g/fLDhoucj24.0-36.0[facility] Comment on above:Performed By: #### VPC860 #### [place] [address] MCV (RBC) [Entitic vol]89.9 vXXzsdro23.0-100.0[facility] Comment on above:Performed By: #### NKS192 #### [place] [address] Platelets (Bld) [#/Vol]164 10*3/rGDgneoe625-079MwflmMemorial Hospital Comment on above:Performed By: #### TEH496 #### [address] RBC COUNT4.49 M/JQ6Rumgnn1.40-5.80Memorial HospitalComment on above:Performed By: #### ZNN932 #### [address] WBC (Bld) [#/Vol]16.8 10*3/uLHigh3.8-10.8[facility] Comment on above:Performed By: #### EKM966 #### [address] COMPLETE BLOOD COUNT WITH DIFFERENTIALon 44-04-1094YAVEEXXP BASOPHIL 0.1 K/OA4Tsbjzl0.0-0.3MGalion HospitalComment on above:Performed By: #### CVY082 #### [place] [address] ABSOLUTE SEGMENTED VKBKUBQNJS39.5 K/TR0Ammb2.5-7.8Memorial HospitalComment on above:Performed By: #### SVE629 #### [place] [address] Basophils/100 WBC (Bld)0.3 %Normal0.0-2.0[facility] Comment on above:Performed By: #### BBE686 #### [place] [address] Eosinophils (Bld) [#/Vol]0.0 10*3/uLNormal0.0-0.6MGalion HospitalComment on above:Performed By: #### KUM841 #### [address] Eosinophils/100 WBC (Bld)0.1 %Normal0.0-7.0[facility] Comment on above:Performed By: #### TSQ017 #### [place] [address] Erythrocyte distribution width (RBC) [Ratio]13.8 %Normal9.0-15.0 Memorial HospitalComment on above:Performed By: #### QIE457 #### [place] [address] Hematocrit (Bld) [Volume fraction]39.7 %Low41.0-50.0Mem[facility] HospitalComment on above:Performed By: #### MJR020 #### [place] [address] Hemoglobin (Bld) [Mass/Vol]13.2 g/dLLow13.8-17.2MGalion HospitalComment on above:Performed By: #### MLF650 #### [place] [address] Lymphocytes (Bld) [#/Vol]1.0 10*3/uLNormal0.9-4.1MGalion HospitalComment on above:Performed By: #### YTH030 #### [place] [address] Lymphocytes/100 WBC (Bld)6.4 %Low18.0-47.0[facility] Comment on above:Performed By: #### TYZ756 #### [place] [address] MCH (RBC) [Entitic mass]30.4 qkBlsywf26.0-33.0[facility] Comment on above:Performed By: #### [id number] #### [place] [address] MCHC (RBC) [Mass/Vol]33.2 g/cGWxnsvh00.0-36.0[facility] Comment on above:Performed By: #### [id number] #### [place] [id number] MCV (RBC) [Entitic vol]91.6 yKDjfgfa91.0-100.0[facility] Comment on above:Performed By: #### [id number] #### [place] [id number] Monocytes (Bld) [#/Vol]1.3 10*3/uLHigh0.2-1.1MGal[facility] Comment on above:Performed By: #### [id number] #### [place] [id number] Monocytes/100 WBC (Bld)8.1 %Normal0-14.0Memorial HospitalComment on above:Performed By: #### MSR455 #### [place] [phone] Platelets (Bld) [#/Vol]187 10*3/mBEwhoag368-348IgdedMemorial Hospital Comment on above:Performed By: #### [id number] #### [place] [id number] RBC COUNT4.34 M/TF5Kfb7.40-5.80Memorial HospitalComment on above:Performed By: #### QBA270 #### [place] [phone] Segmented neutrophils/100 WBC (Bld)85.1 %High40.0-75.0Memorial HospitalComment on above:Performed By: #### ZKS960 #### [place] [phone] WBC (Bld) [#/Vol]15.9 10*3/uLHigh3.8-10.8[facility] Comment on above:Performed By: #### [id number] #### [place] [address] ETHANOLon 18-37-3311Zlcnzve [Mass/Vol]Not detectedNormalNONDTMemorial HospitalComment on above:Performed By: #### [id number] #### [place] [address] HEMOGLOBIN AND HEMATOCRITon 00-91-7674Yqnlszypkq (Bld) [Volume fraction]37.0 %Low41.0-50.0Memorial HospitalComment on above:Performed By: #### JDH298 #### [place] [address] Hemoglobin (Bld) [Mass/Vol]12.5 g/dLLow13.8-17.2MGalion HospitalComment on above:Performed By: #### [id number] #### [place] [address] LACTIC ACIDon 49-99-4708Ndxutcu [Moles/Vol]4.0 mmol/LHigh0.5-2.2 Memorial HospitalComment on above:Result Comment: Per the request of [facility]'s ER Mcgill and approval by the [facility] Court Bailiff and Medical Executive Committee, this critical value was not called to the caregiver. (NOTE) If ruling out sepsis: Result >2.0 meets criteria for severe sepsis, recommend repeat testing to rule out sepsis. Result >=4.0 meets criteria for septic shock.Performed By: #### QPK590 #### [place] [address] PREPARE RED BLOOD CELLSon 31-76-6622BDAASBN RED BLOOD CELLSUNIT PRODUCT CODE: [id number] PREPARE RED BLOOD CELLS: RED BLOOD CELLS, CPD>AS1, LEUKOCYTES REDUCED UNIT ID: [id number] UNIT ABO: O UNIT RH: POSITIVE UNIT DISPENSE STATUS: Emergency Issue UNIT EXPIRATION DATE: UNIT BLOOD TYPE: 5100 BLOOD CODING SYS: ISBT 128NormalMiami Valley HospitalComment on above:Performed By: #### [id number] #### [place] [address] PREPARE RED BLOOD CELLSUNIT PRODUCT CODE: [id number] PREPARE RED BLOOD CELLS: RED BLOOD CELLS, CPD>AS1, LEUKOCYTES REDUCED UNIT ID: [id number] UNIT ABO: O UNIT RH: POSITIVE UNIT DISPENSE STATUS: Emergency Issue UNIT EXPIRATION DATE: UNIT BLOOD TYPE: 5100 BLOOD CODING SYS: ISBT [address] [place], [place] [address]Comment on above:Performed By: #### [id number] #### [place] [address] PREPARE RED BLOOD CELLSUNIT PRODUCT CODE: [id number] PREPARE RED BLOOD CELLS: RED BLOOD CELLS, CPD>AS1, LEUKOCYTES REDUCED UNIT ID: [id number] UNIT ABO: O UNIT RH: POSITIVE UNIT INTERPRETATION: Compatible UNIT DISPENSE STATUS: Presumed Transfused UNIT EXPIRATION DATE: UNIT BLOOD TYPE: 5100 BLOOD CODING SYS: ISBT 128 UNIT PRODUCT CODE: [id number] PREPARE RED BLOOD CELLS: RED BLOOD CELLS, CPD>AS1, LEUKOCYTES REDUCED UNIT ID: [id number] UNIT ABO: O UNIT RH: POSITIVE UNIT INTERPRETATION: Compatible UNIT DISPENSE STATUS: Presumed Transfused UNIT EXPIRATION DATE: UNIT BLOOD TYPE: 5100 BLOOD CODING SYS: ISBT [address] [place], [place] [address]Comment on above:Performed By: #### [id number] #### [place] [address] PROTHROMBIN TIMEon 21-12-3304VWN Coag (PPP) [Relative time]1.2 {INR} High0.9-1.1MGalion HospitalComment on above:Result Comment: MODERATE-INTENSITY WARFARIN THERAPY: 2.0-3.0 HIGHER-INTENSITY WARFARIN THERAPY: 3.0-4.0Performed By: #### YHQ149 #### [place] [address] PT Coag (PPP) [Time]15.3 sHigh11.7-13.9Memorial HospitalComment on above:Performed By: #### XSI534 #### [place] [address] SURGICAL PATHOLOGYon 63-69-5513NWOWSHPU PATHOLOGYSURGICAL PATHOLOGY REPORT Path #: [id number] SS Patient : JUAN CARLOS NOGUERA #: [id number] Date: 05/09/2020 Pre Op Diagnosis Splenic laceration [...] is an area of focal hemorrhage present. Hris Coordinator sections to include area of described defect and an area of focal hemorrhage are submitted in cassettes A through C . Note that the section with capsule still attached is submitted in cassette A . Technical work associated with this pathology investigation was performed by: [employer] ( [facility] [place], [place] [address]. lorelei/05/09/2020 Kat Aguilera Billing Fee Codes [id number] x 1 The CPT codes provided are based on AMA guidelines and are for informational purposes only. CPT coding is the sole responsibility of the billing republican. Please direct any questions regarding coding to the payer being billed.[facility] Memorial HospitalComment on above:Performed By: #### [id number] #### [place] [address] TYPE AND SCREENon 36-04-4455ROBG AND SCREENABO GROUP: O RH TYPE: Positive INDIRECT ANTIGLOB: Negative SPECIMEN EXPIRATION DATE/TIME: [id number] Valley HospitalComment on above:Performed By: #### QQF952 #### [place] [address] VENOUS BLOOD GASon 06-77-0787HDTC EXCESS,VENOUS-7.3 MMOL/LNormal Memorial HospitalComment on above:Result Comment: BASE EXCESS NORMALS: -2 TO +3Performed By: #### CTF639 #### [address] HPC4 (Bld) [Moles/Vol]21.4 mmol/LLow24.0-28.0[facility] Comment on above:Performed By: #### EVL171 #### [address] O2 ADMINISTRATEDUNKNOWNNormalMemorial HospitalComment on above: Performed By: #### SPH369 #### [address] Oxygen saturation in Blood71.3 %High40.0-70.0[facility] Comment on above:Performed By: #### HZK294 #### [address] QSP1, MMZNSE78.7 MM BCIevo15.0-51.0Memorial HospitalComment on above:Performed By: #### QQH356 #### [place] [id number] PH, VENOUS7.19Low7.32-7.42Memorial HospitalComment on above: Performed By: #### HVW457 #### [place] [id number] IR5, MLQXSP94.6 MM KBGukx22.0-40.0Memorial HospitalComment on above:Performed By: #### FVC750 #### [place] [phone] SURGICALon 83-19-1175CYDUWPFMQgej Pathology JUAN CARLOS NOGUERA 75-WS-63395Pxmiy. [address] [place] [address] PROC: 04/30/19 18NVML/[facility] RECV: 04/30/2017730 [address] RPTD: 05/08/2017[facility] [place] [address] LOC: OI ACCT: SEX: M [id number] AGE: 46 Y : 1970 PATHOLOGY REPORT ATTN: REQ: BARBARA Velazquezinical Information: RIGHT HIP AVASCULAR NECROSISFINAL DIAGNOSIS:Femoral head, right hip, removal: Areas of non-viable bone with features of coagulative necrosis.Specimen:FEMORAL HEAD, RIGHT HIPGross Examination:The container is labeled Juan Carlos Noguera, right hip femoral head.Received in formalin is a femoral head measuring 5 cm in length x 5 cmin diameter. The articular cartilage surface is xavier, smoothandglistening. There is separation of the cartilage from the underlyingbone. The resection line is unremarkable. Hris Coordinator sections aresubmitted after decalcification. ALP/DKR:jcsMicroscopic Examination:Microscopic examination was performed.[id number] KAT MONTOYA D.O., F.C.A.P.[facility]/ [facility] Printed on: 05/08/2017750 [place], [place] [address]Eihrrdai print date: 05/08/2017[facility] CenterTYPE AND SCREEN CAPTUREon 04-29-2017 ABO CAPTUREONoSt. Joseph Medical CenterComment on above:Performed By: #### CT+S ####[facility] [address] [place] [address] INDIRECT NEGAR CAPTURENegativeWoodland Heights Medical CenterComment on above:Performed By: #### CT+S ####[facility] [address] [place], [place] [address]OU CAPTURE (2 D CLONES)PositiveWoodland Heights Medical CenterComment on above:Performed By: #### CT+S ####[facility] [address] [place], [place] [address]Tbltjjsk Noteon 59-12-7397KPB IP Note OR TranscriptionNormalSaint Kootenai Health Vital Signs Date TimeVital SignValuePerforming EsewrkqesCjzaszxp03-20-5635 07:30-0400Body gnubvdlkncf10.1 [degF]Moreno Barrera MD Work Phone: [phone] [place], [place] 8812110-30-2025 07:30-0400 Diastolic blood exekyxep68 mm[Hg]Moreno Barrera MD Work Phone: [phone] [place], [place] 8812110-30-2025 07:30-0400 Heart rate86 /David Barrera MD Work Phone: 1(419)[address] [place], [place] 8812110-30-2025 07:30-0400 Respiratory rate18 /David Barrera MD Work Phone: 1(419)[address] [place], [place] 8812110-30-2025 07:30-0400 SaO2% (BldA) [Mass fraction]95 %Moreno Barrera MD Work Phone: 1([phone])[address] [place], [place] 8812110-30-2025 07:30-0400 Systolic blood zarvttse698 mm[Hg]Moreno Barrera MD Work Phone: 1(419)[address] [place], [place] 8812110-29-2025 14:18-0400 Body wrseul569.96 cmMoreno Barrera MD Work Phone: 1(188)[address] [place], [place] 8812110-27-2025 16:07-0400 Body tjadib02.9 kgMoreno Barrera MD Work Phone: 1(419)[address] [place], [place] 8812110-27-2025 14:14-0400 Body .96 cmMoreno Barrera MD Work Phone: 1(419)[address] [place], [place] 8812110-27-2025 14:14-0400 Body .3 [degF]Moreno Barrera MD Work Phone: 1(419)[address] [place], [place] 8812110-27-2025 14:14-0400 Body tebcyc34.95 kgMoreno Barrera MD Work Phone: 1(419)[address] [place], [place] 8812110-27-2025 14:14-0400 Diastolic blood xbvchyil36 mm[Hg]Moreno Barrera MD Work Phone: [facility]10-27-2025 14:14-0400 Heart rate73 /David Barrera MD Work Phone: [facility]10-27-2025 14:14-0400 Respiratory rate18 /David Barrrea MD Work Phone: [facility]10-27-2025 14:14-0400 SaO2% (BldA) [Mass fraction]99 %Moreno Barrera MD Work Phone: [facility]10-27-2025 14:14-0400 Systolic blood zqfprucc715 mm[Hg]Moreno Barrera MD Work Phone: [phone]15[facility]04-18-2025 13:00-0400 Blood Pressure LocationMikhail Kirnus [facility]04-18-2025 13:00-0400 Diastolic blood mm[Hg]Tylor Kirnus [address] [place], [place] 0180304-18-2025 13:00-0400Heart rate60 /minMitom Kirnus [address] [place], [place] 0180304-18-2025 13:00-3342CxO4% (BldA) [Mass fraction]18 %Tylor Kirnus [address] [place], [place] 0180304-18-2025 13:00-0400 Systolic blood sdxfeuxf872 mm[Hg]Tylor Kirnus [address]03-07-2025 11:00-0500Body dlhzqedxntk48.5 [degF]Cheyenne Horn MD Work Phone: [facility]03-07-2025 11:00-0500 Diastolic blood udmubyki16 mm[Hg]Cheyenne Horn MD Work Phone: [facility]03-07-2025 11:00-0500 Heart rate69 /Lety Horn MD Work Phone: [facility]03-07-2025 11:00-0500 Respiratory rate18 /Lety Horn MD Work Phone: 2(295)422-[address] [place], [place] 9833703-07-2025 11:00-0500 SaO2% (BldA) [Mass fraction]97 %Cheyenne Horn MD Work Phone: 0(267)795-[address] [place], [place] 9833703-07-2025 11:00-0500 Systolic blood clalbqkb381 mm[Hg]Cheyenne Horn MD Work Phone: 1(403)183-[address] [place], [place] 9833703-06-2025 07:47-0500 Body wgrzpu340 cmCheyenne Horn MD Work Phone: [phone] [place], [place] 9833703-06-2025 07:47-0500 Body mass index (BMI) [Ratio]27.46 kg/m2Cheyenne Horn MD Work Phone: [phone])734-[address] [place], [place] 9833703-06-2025 07:47-0500 Body rkcvsu75 kgCheyenne Horn MD Work Phone: 9(477)937-[address] [place], [place] 9833712-18-2024 12:39-0500 Body zitwgn692.3 [facility] [address] [place], [place] 3053412-18-2024 12:39-0500 Body mass index (BMI) [Ratio]30.5 kg/m[address] 03-10-2024 12:39-0500Body wfxfvsteqaw27.3 [degF][address]12-18-2024 12:39-0500Body dwbygd33.[address]12-18-2024 12:39-0500Diastolic blood jjxhsaei15 mm[Hg][address]12-18-2024 12:39-0500Heart rate90 /[address]12-18-2024 12:39-0500Respiratory rate16 /[address]12-18-2024 12:39-5124HlM4% (BldA) [Mass fraction]99 %[address]12-18-2024 12:39-0500Systolic blood ghufkuti724 mm[Hg][address]12-10-2024 10:55-0500Body pdlubg377.3 cmSmario Avery [employer] Work Phone: [facility] HospitalCsnslacppy32-42-6897 10:55-0500Body mass index (BMI) [Ratio]30.82 kg/o2NcpcgJennifer Avery [employer] Work Phone: [facility] HospitalNqkmssfcqx08-71-9591 10:55-0500Body .25 kgJennifer Avery [employer] Work Phone: [facility] HospitalSzzwsfvrpy39-10-2715 10:55-0500Diastolic blood ymvawntb05 mm[Hg]Jennifer Avery [employer] Work Phone: [facility] HospitalXgkewcaekd77-37-8969 10:55-0500Systolic blood vjceupzc992 mm[Hg]Jennifer Avery [employer] Work Phone: [facility] HospitalGytpmainym81-29-5853 14:38-0500Diastolic blood mm[Hg]Tylor Manuelnus [facility]11-08-2024 14:38-0500Heart rate53 /minMikhail Marnus [facility]11-08-2024 14:38-0500 Respiratory rate16 /minMikhail Marnus [facility]11-08-2024 14:38-7231YyC7% (BldA) [Mass fraction]94 %Tylor Marnus [facility]11-08-2024 14:38-0500 Systolic blood edshtkvu432 mm[Hg]Tylor Marnus [facility]10-15-2024 15:14-0400Body mass index (BMI) [Ratio]29.26 kg/w2CqykuJennifer Avery [employer] Work Phone: [facility] HospitalFcqkhwckcq67-96-5308 15:14-0400Body .17 kgSacat Avery [employer] Work Phone: [facility] HospitalWbomdxmfql17-98-3959 15:14-0400Diastolic blood arbgmmjv74 mm[Hg]Jennifer Avery [employer] Work Phone: [facility] HospitalBcfwzlfldq34-96-2495 15:14-0400Systolic blood mm[Hg]Jennifer Avery [employer] Work Phone: [facility] HospitalGcypgeedcj17-68-3316 14:38-0400Blood Pressure LocationMikhail Kirnus [address]10-08-2024 14:38-0400 Diastolic blood ybtbyhsl19 mm[Hg]Tylor Kirnus [address] [place], [place] 4589810-08-2024 14:38-0400Heart rate91 /minMikhail Kirnus [address] [place], [place] 4589810-08-2024 14:38-0400 Respiratory rate16 /minMikhail Kirnus [address] [place], [place] 4589810-08-2024 14:38-1576VaL5% (BldA) [Mass fraction]99 %Tylor Kirnus [address] [place], [place] 0180310-08-2024 14:38-0400 Systolic blood rijtyhmq851 mm[Hg]Tylor Kirnus [address] [place], [place] 4589810-04-2024 07:38-0400Body cmCheyenne Horn MD Work Phone: [facility]10-04-2024 07:38-0400 Body mass index (BMI) [Ratio]26.83 kg/m2Cheyenne Horn MD Work Phone: [facility]10-04-2024 07:38-0400 Body hazhrl80.8 kgCheyenne Horn MD Work Phone: [facility]10-04-2024 07:38-0400 Diastolic blood lxckbdej67 mm[Hg]Cheyenne Horn MD Work Phone: [facility]10-04-2024 07:38-0400 Heart rate89 /minCheyenne Horn MD Work Phone: [facility]10-04-2024 07:38-0400 Systolic blood arsrdlcw907 mm[Hg]Cheyenne Horn MD Work Phone: [facility]10-02-2024 13:17-0400 Body .96 cmMD Moreno Barrera Work Phone: [phone])[phone]10-02-2024 13:17-0400 Body mass index (BMI) [Ratio]26.3 kg/m2MD Moreno Barrera Work Phone: [phone])[address]10-02-2024 13:17-0400 Body jpsflxoynan64.2 [degF]MD Moreno Barrera Work Phone: 1([phone])[address]10-02-2024 13:17-0400 Body zbofwo25.98 kgMD Moreno Barrera Work Phone: 1(234)[address]10-02-2024 13:17-0400 Diastolic blood eorgcdak52 mm[Hg]MD Moreno Barrera Work Phone: 1(413)[address]10-02-2024 13:17-0400 Heart rate51 /minMD Moreno Barrera Work Phone: 1(378)[address]10-02-2024 13:17-0400 Respiratory rate18 /minMD Moreno Barrera Work Phone: 1(771)[address]10-02-2024 13:17-0400 SaO2% (BldA) [Mass fraction]98 %MD Moreno Barrera Work Phone: [phone])[phone]10-02-2024 13:17-0400 Systolic blood mm[Hg]MD Moreno Barrera Work Phone: 1(214)[address]09-12-2024 09:05-0400 Body gkjywt304.3 cmSmario Avery [employer] Work Phone: [facility] HospitalAyqvlxppzo00-70-7428 09:05-0400Body mass index (BMI) [Ratio]29.32 kg/v8PvmxzJennifer Avery [employer] Work Phone: [facility] HospitalHknfaowfed01-46-1681 09:05-0400Body sjkylv96.35 kgJennifer Avery [employer] Work Phone: [facility] HospitalWkmyoittoi56-55-1475 09:05-0400Diastolic blood ojxaspyk19 mm[Hg]Jennifer Avery [employer] Work Phone: [facility] HospitalSdtnwrerlt86-31-5289 09:05-0400Systolic blood cdutixtr243 mm[Hg]Jennifer Avery [employer] Work Phone: [facility] HospitalLkstkcanpu50-48-2364 11:43-0400Diastolic blood vlhicpwt81 mm[Hg]Tylor Manuelnus [facility]09-06-2024 11:43-0400Heart ucym674 /minMikhail Kirnus [address] [place], [place] 0180309-06-2024 11:43-0400 Respiratory rate16 /minMikhail Kirnus [facility]09-06-2024 11:43-5663ExA6% (BldA) [Mass fraction]98 %Tylor Marnus [facility]09-06-2024 11:43-0400 Systolic blood whhdammk150 mm[Hg]Tylor Kirnus [facility]08-21-2024 07:30-0400Body mhencootxcq13.8 [degF]MD Moreno Barrera Work Phone: [facility]08-21-2024 07:30-0400 Diastolic blood arrapxxo70 mm[Hg]MD Moreno Barrera Work Phone: [facility]08-21-2024 07:30-0400 Heart rate65 /minMD Moreno Barrera Work Phone: [phone]08-21-2024 07:30-0400 Respiratory rate16 /minMD Moreno Barrera Work Phone: 1(278)867-[address] [place], [place] 2863808-21-2024 07:30-0400 SaO2% (BldA) [Mass fraction]99 %MD Moreno Barrera Work Phone: 1(205)780-[address] [place], [place] 2863808-21-2024 07:30-0400 Systolic blood mm[Hg]MD Moreno Barrera Work Phone: 1([phone])[address]08-20-2024 13:51-0400 Body pzqame579.96 cmMD Moreno Barrera Work Phone: 1(449)[address]08-19-2024 09:00-0400 Body schqiw68.9 kgMD Moreno Barrera Work Phone: 1([phone])[address]08-15-2024 14:48-0400 Body ivstmniisry79.2 [degF]MD Moreno Barrera Work Phone: 1([phone])[address]08-15-2024 14:48-0400 Diastolic blood mqronpfe52 mm[Hg]MD Moreno Barrera Work Phone: 1([phone])[address]08-15-2024 14:48-0400 Heart rate83 /minMD Moreno Barrera Work Phone: 1(528)421-[address] [place], [place] 2863808-15-2024 14:48-0400 Respiratory rate18 /minMD Moreno Barrera Work Phone: 1([phone])205-88[facility]08-15-2024 14:48-0400 SaO2% (BldA) [Mass fraction]98 %MD Moreno Barrera Work Phone: [phone]08-15-2024 14:48-0400 Systolic blood tfdzikim965 mm[Hg]MD Moreno Barrera Work Phone: 1(997)142-[address] [place], [place] 2863808-15-2024 11:23-0400 Body ackplc612.96 cmMD Moreno Barrera Work Phone: [facility]08-15-2024 11:23-0400 Body mugdid04.3 kgMD Moreno Barrera Work Phone: [facility]07-16-2024 14:40-0400 Diastolic blood tfsxwueh20 mm[Hg]Tylor Kirnus [facility]07-16-2024 14:40-0400Heart rate99 /minMikhail Kirnus [address]07-16-2024 14:40-0400 Respiratory rate16 /minMikhail Kirnus [address]07-16-2024 14:40-9005IxT3% (BldA) [Mass fraction]96 %Tylor Kirnus [address] [place], [place] 0180307-16-2024 14:40-0400 Systolic blood ajodguuz496 mm[Hg]Tylor Kirnus [address]05-20-2024 14:53-0400 Diastolic blood mwjvmbyc98 mm[Hg]Tylor Kirnus [address] [place], [place] 0180305-20-2024 14:53-0400Heart atvz058 /minMikhail Kirnus [address] [place], [place] 0180305-20-2024 14:53-7336WxL4% (BldA) [Mass fraction]96 %Tylor Kirnus [address]05-20-2024 14:53-0400 Systolic blood sskwyqwc984 mm[Hg]Tylor Kirnus [address]05-09-2024 08:08-0400 Diastolic blood pzurxrgs00 mm[Hg]Tylor Kirnus [address] [place], [place] 4589805-09-2024 08:08-0400 Systolic blood lknpgyjk075 mm[Hg]Tylor Kirnus [address] [place], [place] 4589805-09-2024 08:05-0400Heart mric886 /minMikhail Kirnus [address] [place], [place] 4589805-09-2024 08:05-0400 Respiratory rate15 /minMikhail Kirnus [address] [place], [place] 4589805-09-2024 08:05-9641IaO7% (BldA) [Mass fraction]99 %Tylor Kirnus [address] [place], [place] 4589805-09-2024 08:04-0400 Diastolic blood xixvstso96 mm[Hg]Tylor Kirnus [address] [place], [place] 4589805-09-2024 08:04-0400 Systolic blood ecjaxdfb595 mm[Hg]Tylor Kirnus [address] [place], [place] 4589805-09-2024 08:00-0400 Diastolic blood hhomrfiu69 mm[Hg]Tylor Kirnus [address] [place], [place] 4589805-09-2024 08:00-0400Heart jmlw169 /minMikhail Kirnus [address] [place], [place] 4589805-09-2024 08:00-0400 Respiratory rate14 /minMikhail Kirnus [address] [place], [place] 4589805-09-2024 08:00-0400 Systolic blood igcgldea215 mm[Hg]Tylor Kirnus [address] [place], [place] 4589805-09-2024 07:55-0400Heart rate99 /minMikhail Kirnus [address] [place], [place] 4589805-09-2024 07:55-0400 Respiratory rate15 /minMikhail Kirnus [address] [place], [place] 4589805-09-2024 07:55-6874SyE5% (BldA) [Mass fraction]99 %Tylor Manuelnus [address] [place], [place] 0180305-09-2024 06:46-0400Heart rate99 /minMikhail Kirnus [address] [place], [place] 0180305-03-2024 10:54-0400 Diastolic blood lqdzuphm94 mm[Hg]Tylor Marnus [address] [place], [place] 0180305-03-2024 10:54-0400Heart stxf046 /minMikhail Marnus [address]05-03-2024 10:54-8654GfN7% (BldA) [Mass fraction]100 %Tylor Manuelnus [address] [place], [place] 0180305-03-2024 10:54-0400 Systolic blood jegyndgg247 mm[Hg]Tylor Manuelnus [address] [place], [place] 0180303-08-2024 14:55-0500 Diastolic blood iyoxmphz21 mm[Hg]Zeb Delarosa [facility]03-08-2024 14:55-0500Heart rate52 /minRyan Isaura [facility]03-08-2024 14:55-5250VyU9% (BldA) [Mass fraction]91 %Zeb Delarosa [address] [place], [place] 0180303-08-2024 14:55-0500 Systolic blood fmyescrk031 mm[Hg]Zeb Delarosa [address] [place], [place] 0180302-09-2024 13:06-0500 Diastolic blood enikhsgm02 mm[Hg]Zeb Delarosa [facility]02-09-2024 13:06-0500Heart rate54 /minRyan Isaura [facility]02-09-2024 13:06-1697NjU7% (BldA) [Mass fraction]96 %Zeb Isaura [facility]02-09-2024 13:06-0500 Systolic blood bglmdpae553 mm[Hg]Zeb Ingramnickolas [facility]01-25-2024 07:36-0500Body zgvzut070.96 cmMD Moreno Barrera Work Phone: [facility]01-25-2024 07:36-0500 Body ylmkce53.79 kgMD Moreno Barrera Work Phone: [facility]12-28-2023 13:47-0500 Diastolic blood vbisfebt50 mm[Hg]Zeb Ingramnickolas [facility]12-28-2023 13:47-0500Heart elxa847 /minRyan Isaura [facility]12-28-2023 13:47-2857YcW9% (BldA) [Mass fraction]96 %Zeb Isaura [facility]12-28-2023 13:47-0500 Systolic blood gekixqbd967 mm[Hg]Zeb Ingramnickolas [facility]09-14-2023 11:30-0400Body .96 cmMoreno Barrera Other [employer] Other 09-14-2023 11:30-0400Body mass index (BMI) [Ratio] 25.75 kg/p9ErfumbMoreno Barrera Other [facility] [employer] Other 09-14-2023 11:30-0400Body .99 kgMoreno Barrera Other [employer] Other 09-14-2023 11:30-0400Diastolic blood qyysnkiq44 mm[Hg] Moreno Barrear Other [employer] Other 09-14-2023 11:30-0400Respiratory rate20 /minMoreno Barrera Other [employer] Other 09-14-2023 11:30-0400Systolic blood hgoihkby164 mm[Hg] Moreno Barrera Other [employer] Other 07-10-2023 13:50-0400Body .96 cmAmbjacob Boss Other [employer] Other 07-10-2023 13:50-0400Body mass index (BMI) [Ratio] 25.83 kg/l2PlqkrKat Boss Other [employer] Other 07-10-2023 13:50-0400Body yrgopvqwriz32.7 [degF]Kat Boss Other [employer] Other 07-10-2023 13:50-0400Body vqycal06.26 kgKat Boss Other [employer] Other 07-10-2023 13:50-0400Diastolic blood mm[Hg] Kat Boss Other [employer] Other 07-10-2023 13:50-0400Respiratory rate18 /minKat Boss Other [employer] Other 07-10-2023 13:50-0819NkT7% (BldA) [Mass fraction]98 % Kat Boss Other [employer] Other 07-10-2023 13:50-0400Systolic blood mqippfeo062 mm[Hg] Kat Boss Other [facility] [employer] Other 03-21-2022 08:25-0400Body aomfkm655.96 cmM.D. Diana Peoples Work Phone: [facility] Work Phone: [phone] 08:25-0400Body mass index (BMI) [Ratio]24.6 kg/m2M.D. Diana Peoples Work Phone: [phone] Work Phone: [phone] 08:25-0400Body onjwecbxhem26.1 [degF]M.D. Diana Peoples Work Phone: [phone] Work Phone: [phone] 08:25-0400Body vviaak69.09 kgM.D. Diana Peoples Work Phone: [phone] Work Phone: [phone] 08:25-0400Diastolic blood qzylewte91 mm[Hg] M.D. Diana Peoples Work Phone: [phone] Work Phone: [phone] 08:25-0400Heart rate74 /minM.D. Diana Peoples Work Phone: [phone] Work Phone: [phone] 399-530303-21-2022 08:25-0601TnP6% (BldA) [Mass fraction]99 % M.D. Diana Peoples Work Phone: [facility] Work Phone: 1([phone] 123-964203-21-2022 08:25-0400Systolic blood zwwozyrd978 mm[Hg] M.D. Diana Peoples Work Phone: [facility] Work Phone: [phone] 348-241812-20-2021 07:57-0500Body .96 cmM.D. Diana Peoples Work Phone: [phone] Work Phone: [phone] 07:57-0500Body mass index (BMI) [Ratio]25.2 kg/m2M.D. Diana Peoples Work Phone: [phone] Work Phone: [phone] 07:57-0500Body zofqcdcxlis76.3 [degF]M.D. Diana Peoples Work Phone: [phone] [place] [address] Work Phone: [phone] 07:57-0500Body fjafcl16.36 kgM.D. Diana Peoples Work Phone: [phone] Work Phone: [phone] 606-702912-20-2021 07:57-0500Diastolic blood suwkaarw18 mm[Hg] M.D. Diana Peoples Work Phone: [phone] [place] [address] Work Phone: 1([phone] 353-926512-20-2021 07:57-0500Heart falt614 /minM.D. Diana Peoples Work Phone: [phone] Work Phone: [phone] 07:57-5787GfO9% (BldA) [Mass fraction]97 % M.D. Diana Peoples Work Phone: [phone] Work Phone: 1([phone] 151-697412-20-2021 07:57-0500Systolic blood hmfefwps131 mm[Hg] M.D. Diana Peoples Work Phone: [phone] Work Phone: 1([phone] 165-170111-22-2021 07:45-0500Body qiplqn225.96 cmM.D. Diana Peoples Work Phone: [facility] Work Phone: [phone] 07:45-0500Body mass index (BMI) [Ratio]25.2 kg/m2M.D. Diana Peoples Work Phone: [facility] Work Phone: 1([phone] 106-329011-22-2021 07:45-0500Body uocxzjrsaza84.3 [degF]M.D. Diana Peoples Work Phone: [facility] Work Phone: 1([phone] 812-556411-22-2021 07:45-0500Body yupyfd44.36 kgM.D. Diana Peoples Work Phone: [phone] Work Phone: [phone] 07:45-0500Diastolic blood xymcukgw11 mm[Hg] M.D. Diana Peoples Work Phone: [facility] Work Phone: 1([phone] 304-996411-22-2021 07:45-0500Heart rate76 /minM.D. Diana Peoples Work Phone: [phone] Work Phone: 1([phone] 338-197611-22-2021 07:45-2562QnA8% (BldA) [Mass fraction]100 % M.D. Diana Peoples Work Phone: [facility] Work Phone: [phone] 566-923811-22-2021 07:45-0500Systolic blood dxkzqaaq906 mm[Hg] M.D. Diana Peoples Work Phone: [facility] Work Phone: Encounters Encounter DateEncounter TypeCare ProviderFacilityStart: 01-17-2025 End: 55-17-4874Jxkmqppkdo and management of inpatientAdeyemi Everett [facility]: 50-55-4945Qmy-patient / Non-visitAdenathalie Floyd MD-[facility] Med Out[facility] Work Phone: Start: 71-69-6247refptlhcncIchoxozoudm Abdelaziz [facility]: 07-09-2024 End: 43-06-2629mgbnwveykzVQ Tylorgarrison KnightFacility:FTMCStart: 06-25-2024 End: 19-09-3567Ricytrr encounter procedureMitom Knight [facility] Start: 05-27-2024 End: 68-70-8929Trqbhlbqeq hospital visit by Fe Horn MD Work Phone: [facility] 8 Cardiac Intensive Care Comment on above:Atrial fibrillation, unspecified type (Multi) (Primary Dx); Other fatigue; Shortness of breath on exertion; PAF (paroxysmal atrial fibrillation) (Multi); Atrial fibrillation, persistent (Multi)Start: 03-10-2024 End: 72-59-1468Usmculqcbw hospital visit by Salvador Martínez Nonv1 [facility] 03-10-2024 End: 48-28-7063vhcrmdqgrzZGG M [facility]: 03-10-2024 End: 91-99-5033Vvwtpmegku hospital visit by Salvador Er X-Ray [address] [place], [place] [address]Comment on above:ArrivedAtrial fibrillation, unspecified type (Multi)Start: 03-10-2024 End: 53-87-6307ryodnsgrbtQQLV Z [facility] Start: 03-05-2024 End: 17-93-1713Axmqqxtqwd hospital visit by Salvador [address] [place], [place] [address]Comment on above:Atrial fibrillation, unspecified type (Multi); Other fatigue; Shortness of breath on exertionStart: 03-05-2024 End: 86-51-8737gbclrqiicoKZLK J [facility] Start: 03-02-2024 End: 36-71-9995Emmnie flowsJak Avery [employer] Work Phone: [facility]TEStart: 03-02-2024 End: 02-43-1472Chxwjg flowsJak Avery [employer] Work Phone: [facility]TEStart: 03-02-2024 End: 69-23-3404Hjbnlw outpatient visit 25 minutesSacat Avery [employer] Work Phone: n[facility] ROUTEComment on above:Lumbar radiculopathy (Primary Dx); Weakness of both lower extremities; Cognitive impairment; Anxiety; Muscle stiffness; Blurry vision, bilateralStart: 03-02-2024 End: 29-02-9187gcpqteflgbQBMFQ CARROLLNot AvailableStart: 01-30-2024 End: 73-40-9003rttzpcpzfaQN Tylor KnightFacility:FTMCStart: 01-30-2024 End: 06-58-3508Tltpuci encounter procedureTylor Knight [facility] Start: 01-16-2024 End: 46-71-0525Ufwonioko Result EncounterSmario Avery [employer] Work Phone: noms External Department UnsolicitedStart: 01-16-2024 End: 56-69-5767Qqoqzvbgf Result EncounterSmario Avery [employer] Work Phone: noms External Department UnsolicitedStart: 01-06-2024 End: 55-93-0029Lziakt outpatient visit 25 minutesSacat Avery [employer] Work Phone: n[facility] ROUTEComment on above:Lumbar radiculopathy (Primary Dx); Weakness of both lower extremities; Cognitive impairment; Anxiety; Muscle stiffness; Blurry vision, bilateralStart: 01-06-2024 End: 23-71-2692mkwjnusakaCEZFR CARROLLNot AvailableStart: 01-06-2024 End: 94-47-3919Eerymh flowsJak Avery [employer] Work Phone: noMS [facility]TEStart: 01-06-2024 End: 93-21-9400Eyycox flowsJak Avery [employer] Work Phone: NO [facility] R[facility]TEStart: 01-01-2024 End: 01-56-5398Rrygjjrxj Result EncounterSmario Avery NPNOMS External Department UnsolicitedStart: 01-01-2024 End: 19-85-9072Nvbsxvygv Result EncounterSmario COULTER External Department UnsolicitedStart: 30-58-4542jvouncwbfvAMGG [facility]art: 12-30-2023 End: 83-68-3563zzioautqguOP Mikhail D KirnusFacility:FTMCStart: 12-30-2023 End: 28-70-2940Rcabrpw encounter procedureMitom Knight [facility] Start: 12-26-2023 End: 42-85-1347Vpqefv consultation new/estab patient 80 Lety Horn MD Work Phone: [facility] CenterComment on above:Atrial fibrillation, unspecified type (Multi) (Primary Dx); Other fatigue; Shortness of breath on exertion; Encounter to establish care with new doctor; Encounter for medication review and counseling; Encounter to discuss treatment options; BMI 26.0-26.9,adult; Current smokerStart: 12-26-2023 End: 67-44-8058tgqjfetwqbCYZV [facility]ulatoryStart: 12-24-2023 End: 72-79-5381ukjyottzafTY Marcia E Braun Work Phone: [facility] Work Phone: Start: 12-24-2023 End: 00-50-1327Fjueewc encounter procedureMD Moreno Barrera Work Phone: [facility] Work Phone: Start: 35-00-1767Rxctawvswn RecurringMD Moreno Barrera Work Phone: [facility] CredibleStart: 12-04-2023 End: 23-57-3740Ladsur flowsJak Avery [employer] Work Phone: NOM[facility]TEStart: 12-04-2023 End: 53-29-6715Tuugwf flowsJak Avery [employer] Work Phone: N[facility]TEStart: 12-04-2023 End: 25-46-7122Xbjxnq outpatient visit 25 minutesSacat Avery [employer] Work Phone: noms [facility] ROUTEComment on above:Lumbar radiculopathy (Primary Dx); Cognitive impairment; Anxiety; Muscle stiffness; Blurry vision, bilateral; Cervical radiculopathy; Carpal tunnel syndrome, bilateralStart: 12-04-2023 End: 87-91-2018xfwmzknigwDBHHZ BENNIENot AvailableStart: 11-28-2023 End: 85-16-8323uhbgcsaoanTU Tylor Potter AntoniaFacility:FTMCStart: 11-28-2023 End: 79-90-3726Yvxeoyo encounter procedureMitom Knight [facility] Start: 88-04-9963Usr-patient / Non-visitMD Moreno Barrera Work Phone: [facility] Work Phone: Start: 11-06-2023 End: 21-76-4776Smdbnlinsp and management of inpatientMD Moreno Barrera Work Phone: [facility]-[address] [place] [address] Work Phone: Start: 47-68-8591Bhmxkzfmfc RecurringMD Moreno Barrera Work Phone: [facility] CredibleStart: 31-61-5980Uowwesgxcc RecurringMD Moreno Barrera Work Phone: [facility] CredibleStart: 10-13-2023 End: 71-73-3833sfvqjjbbmdZGEHK CARROLLNot AvailableStart: 10-07-2023 End: 84-75-8875Esv-admission assessmentMitom Knight [facility] Start: 10-07-2023 End: 31-04-1943alesmdvstpGN Tylor KnightFacility:FTMCStart: 10-07-2023 End: 81-79-9456Groxoqb encounter procedureMitom Knight [facility] Start: 10-01-2023 End: 59-85-0215wbktpxllsoET Mikhail D KirnusFacility:FTMCStart: 10-01-2023 End: 30-85-3277Stuyqhg encounter procedureBasem Ofelia Steeled [facility] Start: 08-11-2023 End: 40-63-8191ouxolvcyibZB Mikhail D KirnusFacility:FTMCStart: 08-11-2023 End: 30-97-7608Kzropxj encounter procedureMitom Knight [facility] Start: 08-11-2023 End: 43-84-4417hyjuilydleZHDLN CARRJEREMYNot AvailableStart: 07-31-2023 End: 47-88-7797Iknjbliim to same day surgery Jenaro Knight [facility] Start: 07-25-2023 End: 29-99-4638Pqqxklx encounter procedureMitom Knight [facility] Start: 07-15-2023 End: 38-28-7183xegiryxgyjDIDNW POCOSNot AvailableStart: 07-14-2023 End: 53-44-4072uprdgpuuckIWLDNTXVZRC HASSETTNot AvailableStart: 05-30-2023 End: 27-79-8359Wscbzqq encounter Patito Delarosa [facility] Start: 05-08-2023 End: 43-24-2110Zdtmtfwtz to same day surgery Deysi Delarosa [facility] Start: 05-02-2023 End: 44-37-9208Xvavujy encounter Patito Delarosa [facility] Start: 04-17-2023 End: 49-23-9158dkgqzteshrJW Moreno Barrera Work Phone: [facility] Work Phone: Start: 04-17-2023 End: 05-82-4819Tmaupuy encounter Whitney Barrera Work Phone: [facility] Work Phone: Start: 04-16-2023 End: 73-53-2255Hnotcguev Result EncounterDavid A Pocos DO Work Phone: noms External Department UnsolicitedStart: 04-16-2023 End: 97-05-4273Nqllqsheg Result EncounterDavid A Pocos DO Work Phone: noms External Department UnsolicitedStart: 04-15-2023 End: 90-85-7542Logddny encounter Patito Delarosa [facility] Start: 04-07-2023 End: 33-91-6326nlqbpbamywKTCRR A POCOSNot AvailableStart: 03-20-2023 End: 03-66-4246Imgtwrh encounter Patito Delarosa [facility] Start: 12-27-2022 End: 03-72-8130suoxyouobxOzmdrt Braun Other noBioaxial Other Start: 96-40-8956Sguoxadiu encounterMarbrenna BarreraGreene Memorial Hospital ClinicStart: 12-10-2022 End: 92-19-4131dtlrugtayzUwazec Braun Other [facility] RFIDeas Other Start: 32-45-0161Dwzschcxc encounterMarbrenna BarreraGreene Memorial Hospital ClinicStart: 12-05-2022 End: 85-67-1358prxucmdvkwPhjyzj Braun Other noBioaxial Other Start: 39-68-0945Iumjdq outpatient new 45 minutes Moreno BarreraGreene Memorial Hospital ClinicStart: 09-30-2022 End: 28-92-9274qocwkwnkhbMzego Keller Other [facility] RFIDeas Other Start: 62-44-4796Mnagil outpatient new 20 minutesKat BossSanjeev Urgent Care ClydeStart: 12-20-2021 End: 08-92-6509nramzpeopoZymbix K. WillsFacility:[facility] Hospitaltart: 12-18-2021 End: 28-67-2828vitaaypvteTcrjrk K. WillsFacility:[facility] Hospitaltart: 12-12-2021 End: 50-73-2724logafksfsnYzthdt K. WillsFacility:[facility] CAMPUStart: 12-03-2021 End: 99-41-8415bvzjdnqlleXtpzcc K. WillsFacility:[facility] Hospitaltart: 12-03-2021 End: 13-84-4236vfzccohkcdJhafmo MagnoRaymond WillsFacility:WMGStart: 11-28-2021 End: 10-96-7836kxckjflgqfCeilld MagnoRaymond WillsFacility:WMGStart: 11-23-2021 End: 71-03-0342Zxfibjmcg department patient visitMerlykevin Cloud WillsFacility:[facility] Hospitaltart: 10-08-2021 End: 29-95-6316gdpoccgnhdBvguih MagnoRaymond WillsFacility:WMGStart: 09-10-2021 End: 54-57-3782yjeayspclxQbyxvk MagnoRaymond WillsFacility:WMGStart: 06-11-2021 End: 26-93-1530gqrigeihplDmmbgj MagnoRaymond WillsFacility:WMGStart: 06-11-2021 End: 52-77-4899Iykufmr encounter procedureMShad Peoples Work Phone: [facility] MedicineStart: 03-12-2021 End: 66-17-4169hmlfdvzgnsQdai SheltonFacility:WMGStart: 03-12-2021 End: 58-46-2927Wpoiztw encounter procedureMShad Peoples Work Phone: [facility] Internal MedicineStart: 02-12-2021 End: 39-98-7353qmhmqbeygaFiqx SheltonFacility:WMGStart: 02-12-2021 End: 22-17-4545Jdkffoq encounter procedureMShad Peoples Work Phone: [facility] Internal MedicineStart: 04-28-2017 End: 76-39-5554HevrfxefpeCLUDHVB A SANKOTexas Health [facility] Southtart: 04-14-2017 End: 27-74-9922CqxkqmyVIYIKYobany TANHuntsville Memorial Hospital Procedures DateProcedureProcedure DetailPerforming ClinicianStart: 03-80-1530Szg routine ecg w/least 12 lds trcg only w/o i&Santhosh Resendez SHEARER OPERATOR-EVENT SET UP SPECIALIST Work Phone: Start: 43-23-7416Vel routine ecg w/least 12 lds trcg only w/o i&Santhosh Castillo Mal SHEARER OPERATOR-EVENT SET UP SPECIALIST Work Phone: Start: 87-07-6822Kjkxbitdgbqoyfvna Heike Horn MD Work Phone: Start: 86-03-8963Kjuhtuqydui time activatedCheyenne Horn MD Work Phone: Start: 32-45-4667Mcg routine ecg w/least 12 lds trcg only w/o i&Santhosh Jonathan Nicole SHEARER OPERATOR-EVENT SET UP SPECIALIST Work Phone: Start: 50-19-1871Ybscl typing serologic rh (d)Rachael Rivera SHEARER OPERATOR-EVENT SET UP SPECIALIST Work Phone: Start: 82-10-4906Iyvwynfdeehzc metabolic panelRachael Rivera SHEARER OPERATOR-EVENT SET UP SPECIALIST Work Phone: Start: 28-68-2231GVVDFLS RBCRachael Castillo Nicole SHEARER OPERATOR-EVENT SET UP SPECIALIST Work Phone: Start: 31-61-8192Sdq routine ecg w/least 12 lds trcg only w/o i&Santhoshdemetrice Rivera SHEARER OPERATOR-EVENT SET UP SPECIALIST Work Phone: Start: 75-05-7383HJ Heart TransesophagealCheyenne Horn MD Work Phone: Start: 80-87-2628Ppywrmsspl exam chest 2 viewsRachael Jonathan Rivera SHEARER OPERATOR-EVENT SET UP SPECIALIST Work Phone: Start: 49-90-0155Mftdmdbstqqsg metabolic panelRachael Rivera SHEARER OPERATOR-EVENT SET UP SPECIALIST Work Phone: Start: 01-12-9179UZTFN/VERIFY ABORHAmdemetrice Rivera SHEARER OPERATOR-EVENT SET UP SPECIALIST Work Phone: Start: 29-16-0815Iy heart contrast eval cardiac structure&morphCheyenne Horn MD Work Phone: Start: 31-01-1392Xsvckbtpga bloodInterface Unspecifiedprovider Work Phone: Start: 98-73-2630MZE MYOGLOBINSmario Avery [employer] Work Phone: Start: 65-39-5659YKU THYROID STIM HORMONESmario Avery [employer] Work Phone: Start: 47-65-4345NXD CKSaradiana Avery [employer] Work Phone: Start: 49-86-5943QX LUMBAR SPINE WO CONSmario Avery NPStart: 60-47-0379Jpc routine ecg w/least 12 lds w/i&rKleonora Horn MD Work Phone: Start: 97-39-2873KRDU-CoV-2, Influenza & RSV (PCR)MD Moreno Barrera Work Phone: Start: 54-41-6106Ukqgc chest X-rayMD Moreno Barrera Work Phone: Start: 42-46-5236TtmehxxqfdauhGrhtkrf Joycelynus Start: 26-89-7512Umsocgokxaaavlx of left heartSadiqan Isaura Start: 90-68-5521DNX of cervical spine without contrast MD Moreno Barrera Work Phone: Start: 65-57-9741FGN of headMD Moreno Barrera Work Phone: Start: 80-02-1695BFF 12-LEADDavid A Pocos DO Work Phone: H/O splenectomyRyan Isaura Insertion of hip prosthesisRyan Isaura Lung structure (body structure)Zeb Delarosa Plan of Treatment DateCare ActivityDetailAuthorStart: 33-70-5446NzsjhevikAshtabula County Medical Center Start: 42-24-3431Ewrtxiqa admissionSelect Medical Specialty Hospital [facility]art: 29-08-2473Plmxaskbk vaccinationInfluenza Vaccine (#1)NOM HealthcareStart: 08-24-2024 End: 45-63-6343Edtuydm encounter blddaaqok45/03/2025 11:00 AM EDT Office Visit [facility] [address] [facility] [address] [place] [address] Cheyenne Horn MD [address] [facility] Medical Office [facility] [address] [place] [address] [facility] Start: 08-20-2024 End: 79-83-2291Fopwec monitor studyHolter Or Event Assistant Tennis Coach Cardiac Services Routine PAF (paroxysmal atrial fibrillation) (Multi) Expected: 08/20/2024 (Approximate), Expires: 05/27/2025Un[facility] Work Phone: Comment on above:Expected: 08/20/2024 (Approximate), Expires: 05/27/2025Start: 08-17-2024 End: 52-86-2253Toavvwtrguko / ancillary services fkfwmtdelj54/27/2025 10:00 AM EDT Ancillary Procedure [facility] [address] [facility] [address] [place] [address] [place] FirelandsStart: 06-03-2024 End: 04-15-7468Laxeont encounter pwcokaoxa37/13/2025 1:45 PM EDT Office Visit [facility] [address] [facility] [address] [place] [address] Ned Weller, SHEARER OPERATOR-EVENT SET UP SPECIALIST [address] [place] [address] [facility]: 04-29-2024 End: 26-53-8695Rjmhyic encounter tvrcpgsii98/06/2025 11:20 AM EST Office Visit [facility] [address] [place] [address] Jennifer Avery, ISABEL [address] [place] [address] [facility] ROUTEStart: 03-11-2024 End: 50-94-7118Vasdnrxsh to same day surgery itnbkp5103/11/2024 8:00 AM EST - 03/11/2024 11:00 AM EST Surgery [address] [place] [address] Cheyenne Horn MD [address] [facility], [address] [address] ABLATION A-FIB CRYO [26991 (CPT )][facility] HospitalComment on above:ABLATION A-FIB CRYO [27156 (CPT )]Start: 26-48-8756Pwmriqjzdm hospital visit by physician 03/11/2024 8:00 AM EST Hospital Encounter [address] [place] [address] Cheyenne Horn MD [address] [address] Atrial fibrillation, unspecified type (Multi); Other fatigue; Shortness of breath on exertionDelta County Memorial HospitalComment on above:Atrial fibrillation, unspecified type (Multi); Other fatigue; Shortness of breath on exertionStart: 03-10-2024 End: 33-89-1328Qihlaxb encounter vuhygjuqi06/18/2024 9:30 AM EST Appointment [address] [place] [address] Caroline Dixon MD [address] [address] [facility]: 03-02-2024 End: 89-23-1994Wrarxdf encounter procedureNOMS [facility] STATE ROUTEComment on above:ArrivedStart: 01-06-2024 End: 46-27-2984Ndclepm encounter procedureNOMS [facility] STATE ROUTEComment on above:Lumbar radiculopathy (Primary Dx); Cognitive impairment; Anxiety; Muscle stiffness; Blurry vision, bilateralStart: 01-06-2024 End: 28-42-7771CusgbntdKsvgyckt Lab Routine Weakness of both lower extremities Expected: 01/06/2024 (Approximate), Expires: 01/05/2025 HealthcareComment on above:Expected: 01/06/2024 (Approximate), Expires: 01/05/2025Start: 01-06-2024 End: 16-84-2922Zfonhdsz kinase [Enzymatic activity/volume] in Serum or PlasmaCK Lab Routine Weakness of both lower extremities Expected: 01/06/2024 (Approximate), Expires: 01/05/2025 Healthcare Work Phone: comment on above:Expected: 01/06/2024 (Approximate), Expires: 01/05/2025Start: 01-06-2024 End: 77-17-5761Gspsavovj, serumMyoglobin, serum Lab Routine Weakness of both lower extremities Expected: 01/06/2024 (Approximate),Expires: 01/05/2025 HealthcareComment on above:Expected: 01/06/2024 (Approximate), Expires: 01/05/2025Start: 01-06-2024 End: 38-46-3315Bfvrshq Ab [Titer] in Serum by ImmunofluorescenceANA Lab Routine Weakness of both lower extremities Expected: 01/06/2024 (Approximate), Expires: 01/05/2025 HealthcareComment on above:Expected: 01/06/2024 (Approximate), Expires: 01/05/2025Start: 01-06-2024 End: 27-66-1609Krhbtggdjxp [Units/volume] in Serum or PlasmaTSH Lab Routine Weakness of both lower extremities Expected: 01/06/2024 (Approximate), Expires: 01/05/2025 HealthcareComment on above:Expected: 01/06/2024 (Approximate), Expires: 01/05/2025Start: 12-04-2023 End: 42-77-2987NA Lumbar spine WO contrastMR lumbar spine wo contrast Imaging Routine Lumbar radiculopathy Expected: 12/04/2023 (Approximate), Expires: 12/03/2024N[facility] Work Phone: comment on above:Expected: 12/04/2023 (Approximate), Expires: 12/03/2024Start: 12-04-2023 End: 82-88-0860Vgqklqd encounter eirhuvkdq27/12/2024 9:00 AM EDT Office Visit NOMLal[facility] [place] [address] [place] [address] Jennifer Avery, [employer]ENGE DOUGH MIXER [address] [place] [address] Lumbar radiculopathy (Primary Dx); Cognitive impairment; Anxiety; Muscle stiffness; Blurry vision, bilateral; Cervical radiculopathy; Carpal tunnel syndrome, bilateralNOMS [place] [facility] ROUTEComment on above: Lumbar radiculopathy (Primary Dx); Cognitive impairment; Anxiety; Muscle stiffness; Blurry vision, bilateral; Cervical radiculopathy; Carpal tunnel syndrome, bilateralStart: 85-91-5555RTCAA-19 Vaccine ( season)COVID-19 Vaccine ( season)[facility] Start: 30-31-9379XZKTH-19 Vaccine ( season)COVID-19 Vaccine ( season)[facility] HospitalStart: 99-08-2918Ppovnbtoe vaccinationInfluenza Vaccine (#1)[facility]Start: 23-12-9227WkuaxbhpvSelect Medical Specialty Hospital - Akrontart: 81-82-9269Yxpueuje admissionSelect Medical Specialty Hospital - Akrontart: 56-15-7282Wetcopduguhc vaccinationPneumococcal Vaccine (2 of 2 - PPSV23)[facility] HospitalStmemphis: 73-94-3238Epcofbxyfank Vaccine: Pediatrics (0 to 5 Years) and At-Risk Patients (6 to 64 Years) (2 of 2 - PPSV23 or PCV20)Pneumococcal Vaccine: Pediatrics (0 to 5 Years) and At-Risk Patients (6 to 64 Years) (2 of 2 - PPSV23 or PCV20)[facility]: 86-99-5237Rfkbrb Vaccines (1 of 2)Zoster Vaccines (1 of 2) [facility]: 06-92-6005YTxO/Tdap/Td Vaccines (1 - Tdap)DTaP/Tdap/Td Vaccines (1 - Tdap)[facility]: 49-09-7953Eojpdwkqg B Vaccines (1 of 3 - 19+ 3-dose series)Hepatitis B Vaccines (1 of 3 - 19+ 3-dose series)[facility]: 1988 Diabetes mellitus screeningDiabetes ScreeningKeenan Private Hospital Start: 67-34-9905Lnegujwqc C screeningHepatitis C ScreeningUnOhio Valley Surgical Hospital: 33-60-1235AZH Vaccines (1 of 1 - Standard series)MMR Vaccines (1 of 1 - Standard series)[facility]: 39-61-0906UDG screeningHIV ScreeningK[facility] Health [facility]: 47-37-0941Clibi panelLipid PanelUnOhio Valley Surgical Hospital: 09-34-7634Uvlnspvqu for malignant neoplasm of colonUnOhio Valley Surgical Hospital: 1970 Thyroid stimulating hormone measurementTSAkron Children's Hospital: 35-15-8908Borwxb Adult PhysicalYearly Adult PhysicalUnMercy Health [facility] Hospital End: 05-30-8770Wbkqw metabolic 2000 panel - Serum or PlasmaBasic Metabolic Panel Lab Routine Atrial fibrillation, unspecified type (Multi) Other fatigue Shortn ess of breath on exertion 1 Occurrences starting 12/26/2023 until 12/25/2024[facility] Area Work Phone: Comment on above:1 Occurrences starting 12/26/2023 until 12/25/2024 End: 32-73-7281WTR panel - Blood by Automated countCBC Lab Routine Atrial fibrillation, unspecified type (Multi) Other fatigue Shortness of breath on e xertion 1 Occurrences starting 12/26/2023 until 12/25/2024[facility] Work Phone: Comment on above:1 Occurrences starting 12/26/2023 until 12/25/2024 End: 66-05-5577WY Heart W contrast IVCT heart structure morphology w IV contrast Imaging Routine Atrial fibrillation, unspecified type (Multi) Other fatigue Shortness of breath on exertion 1 Occurrences starting 12/26/2023 until 12/26/19 25[facility] Work Phone: Comment on above:1 Occurrences starting 12/26/2023 until 12/25/2024ECG 12 LeadECG 12 Lead ECG Routine 05/28/2024 11:12 AM [facility] Work Phone: ECG 12 lead STATECG 12 lead STAT ECG STAT 05/27/2024 8:32 AM [facility] Work Phone: Electrocardiogram, 12-lead PRN ACS symptomsKe[facility] Work Phone: Comment on above:As needed until discontinued starting 05/27/2024Ephys eval w/ablation supravent arrhythmiaABLATION A-FIB CRYO Atrial fibrillation, unspecified type (Multi) Other fatigue Shortness of breathon exertionVirtual NEIL Cardiac Cath LabPatient EducationTrihealth Ctr Work Phone: [facility] referralTri[facility] Ctr Work Phone: End: 93-50-9453Poafcsahgmx time (PT)Protime-INR Lab Routine Atrial fibrillation, unspecified type (Multi) Other fatigue Shortness of breath on exertion 1 Occurrences starting 12/26/2023 until 12/25/2024[facility] Work Phone: Comment on above:1 Occurrences starting 12/26/2023 until 12/25/2024 End: 57-16-7772VG Heart TransesophagealTransesophageal Echo (ABHISHEK) Echocardiography Routine Atrial fibrillation, unspecified type (Multi) 1 Occurrences starting 12/26/2023 until 12/25/2025[facility] Work Phone: Comment on above:1 Occurrences starting 12/26/2023 until 12/25/2025 End: 51-23-7559WM [facility] Work Phone: Comment on above:Once for 1 Occurrences starting 05/27/2024 until 05/27/2024 Immunizations Immunization DateImmunizationNotesCare LfpriilmIjkvkryw99-79-1800tmolxwizp, seasonal, injectable, preservative Lakeshia Barrera MD Work Phone: [facility]02-17-2021haemophilus influenzae type b vaccine, PRP-T conjugateEle Peoples Work Phone: [facility] Work Phone: [phone]zcqgah polysaccharide (groups A, C, Y and W-135) diphtheria toxoid conjugate vaccine (MCV4P)Ele Peoples Work Phone: [facility] Work Phone: [phone]nuxanpvdh conjugate vaccine, 13 valent Ele Peoples Work Phone: [facility] Work Phone: Payers DatePayer CategoryPayerPolicy [id number] 2023Medicaid [employer] MEDICAID [employer] [place] [id number] 2022-Present [address] [place] [id number] Medicaid (Managed Care)[id number] [facility] Member Subscriber Plan / Payer (Effective 2022-Present) Name: Juan Carlos Noguera Relation to Subscriber: Self Name: Juan Carlos Noguera Payer ID: Not on file Group ID: [id number] Type: Not on file Address: [address] [place] [id number] [id number] [id number]-[id number] UwtvgzoYQF51[id number] 2.16840.1.153667.3.579.2.[id number] 2.840.1.591907.3.579.2.200528-62-8599Xpswokc4345106 2.840.1.166797.3.579.2.550520-82-6050Ccbdnlc3764657 2.840.1.557820.3.579.2.434272-00-0527Ycnfuuv5399650 2.840.1.395539.3.579.2.095681-10-0352Niulhvl7720630 2.16840.1.491554.3.579.2.864965-59-3346Bcjpwmx2007217 2.16840.1.550767.3.579.2.060080-72-7247Cfidsnv9490832 2.0.1.674605.3.579.2.723803-21-3627Nlnlcna1464647 2.840.1.091578.3.579.2.110366-92-8154Nsszvhr2006486 2.840.1.393831.3.579.[id number] 2.840.1.083776.3.579.2.169962-38-2251Bbocmfw24998928 2.840.1.174042.3.579.2.039414-37-0970Yllgqtm73939333 2.840.1.243596.3.579.2.108559-32-8332Xodfynm16821635 2.840.1.620078.3.579.2.164440-98-0901Zoaslug06358278 2.0.1.124889.3.579.2.183955-22-6688Dvlmqql93069988 2.0.1.839094.3.579.2.728675-80-1101Fnawtul21735386 2.0.1.791000.3.579.2.95697-76-1537Noiojoi86579898 2.0.1.266806.3.579.2.41685-72-1744Oyxvnxp94408006 2.0.1.479547.3.579.2.80356-80-5005Emmsasz44085012 2.0.1.925748.3.579.2.41057-95-1540Ihsqcgn13240676 2.0.1.301511.3.579.2.69946-90-8665Bdpsekk06688689 2.0.1.908543.3.579.2.33544-91-6350Ajhdtut74995882 2.840.1.040279.3.579.2.457Sowvgbl43446455 2.16840.1.306295.3.579.2.653 [id number] 2.840.1.0[id number] 2.16.840.1.025590.3.579.2.984Igyrkjj18693157 2.16.840.1.644807.3.579.2.653 Ysfwlbe30213270 2.16.840.1.605253.3.579.2.047Cxxijhx27249690 2.16.840.1.514079.3.579.2.795Xdvkame60085475 2.16.840.1.700731.3.579.2.653 Pajqxrh04106844 2.16.840.1.647301.3.579.2.961Fcppmvt32782526 2.16.840.1.619105.3.579.2.599Xhjugcu39511084 2.16.840.1.670953.3.579.2.653 [id number] 2.16.840.1.935494.3.579.2.110Okfqvjo03894531 2.16.840.1.83831[id number] 2.16.840.1.793788.3.579.2.531 [id number] 2.16.840.1.424207.3.579.2.531 Social History DateTypeDetailFacilityStart: 02-12-2021 End: 88-23-0052Aaphyjf smoking status NHISUnknown if ever smokedTrinity Health System West Campus Work Phone: start: 26-19-2868Jsqlodv Every Day UserTrinity Health System West Campus Work Phone: start: 85-25-8079Xuqtpve Every Day DrinkerTrinity Health System [facility] Campus Work Phone: start: 02-12-2021< 1ppdTrinity Health System West Campus Work Phone: start: 77-05-1372XantlGoknnkOhioHealth Mansfield Hospital Work Phone: start: 41-10-7001Upq [facility]igned At [facility] Hospitaltart: 12-04-2023 End: 26-66-7660Ygb [facility]: 03-20-2023 End: 68-13-8908Fsfskpt smoking statusLight tobacco smoker (finding)[facility]: 55-04-9852Wyveivv smoking statusSmokeless tobacco user within last 30 daysTrinity Health System [facility] Medical Centertart: 11-06-2023 End: 66-72-6631Yfscyby smoking status NHISSmoker (finding)[facility]: 12-26-2023 End: 39-74-7087Rsgnczo smoking status NHISSmokes tobacco dailyNOIA Healthcare History of tobacco useCigarette SmokerBEAR RIVER VALLEY [facility]ITAL HealthcareStart: 03-55-0983Pmoklht use and exposureSmokeless tobacco non-userKeenan Private Hospital Work Phone: Start: 04-07-2023 End: 22-49-4045Ngjrjxgla beverage intakeEx-drinker (finding)[facility] Start: 15-23-4451Oym assigned at [facility] pinevilleNot on fileNOMS HealthcareStart: 12-16-2023 End: 29-84-1601Fczismux to SARS-CoV-2 (event)Not sureUnMercy Health Perrysburg HospitalHistory of tobacco usePassive smokerNOIA HealthcareStart: 12-04-2023 End: 93-83-9483Wkodfty of Social functionUnMercy Health Perrysburg HospitalStart: 16-45-7236Wdamhds Commentquit drinking 2022NOIA HealthcareStart: 05-27-2024 Tobacco use and exposureUser of smokeless tobaccoKeenan Private Hospital Work Phone: Start: 27-39-8657Dvtlvmt Comment Chew everyday [facility] Work Phone: [facility] SexMale (finding)[facility] Goals DatePatient GoalDesired Activity/State Functional Status JheuRdkkioiiibPkuigsAfrjordp76-22-1875Iuazrkeghx StatusN/[facility]11-08-2024Functional StatusN/[facility]10-08-2024 Functional StatusN/[facility]09-06-2024Functional StatusN/A [facility]08-21-2024Functional statusPatient at Baseline [facility] Work Phone: [phone]) 759-962507771224-92-4441Koasdsbmqi StatusN/[facility]05-20-2024Functional StatusN/[facility]05-09-2024 Functional StatusN/[facility]05-03-2024Functional StatusN/A [facility]03-08-2024Functional StatusN/[facility]02-15-2024Functional StatusN/[facility] 74-55-7436Yugxincskm StatusN/[facility]12-28-2023Functional StatusN/[facility] Mental Status SedvEcbyvkaxajDixmapYsvofzdf67-37-1850Diuusbdsa functionCognitive Status [facility] Work Phone: Clinical Notes 09-30-2022 to 01-17-2025 Note Date & EjlrZofmIbdnsszi19-37-7301 Chief complaint+Reason for visit Narrative* Chief Complaint Admit Date MEDICAL CLEARANCE January 17, 2025 3 :08pm Reason for Visit Admit Date Anxiety January 17, 2025 3 :08pm Depression January 17, 2025 3 :08pm [facility] Work Phone: 1([phone]) 227-272110-27-2025 Evaluation note* Diagnosis Onset Date Resolution Status Admit Date Anxiety acuteOctober 2024 3:08pmDepressionacuteOctober 2024 3:08pm [facility] Work Phone: 1(230) 405-192803-07-2025 Hospital Discharge instructions* Discharge Instructions* Rachael Resendez APRN-EVENT SET UP SPECIALIST - 05/28/2024 11:54 AM EST Images from the original note were not included. Discharge instructions after an electrophysiology study / ablation procedure After a procedure using sedation You should return home and rest for the remainder of the day and evening. It is recommended a responsible adult be with you for the first 24 hours after the procedure. Do not make any legal decisions for 24 hours after your procedure. Do not drink alcoholic beverages for 24 hours after your procedure. Call 911 or seek medical attention for: Severe chest pain Change in mental status or weakness in extremities. Dizziness, light headedness, or feeling faint. If there is a large amount of bleeding or spurting of blood. DO NOT drive yourself to the hospital. Activity/ After care Avoid heavy lifting (over 10 pounds), strenuous activity/exercise, squatting or excessive bending for 7 days. Avoid sexual activity for 3 days and until any groin discomfort has ceased. No driving for 48 hours after procedure. Groin site care The transparent dressing should be removed from the site 24 hours after the procedure. It is ok to shower later today and remove transparent dressing Wash the site gently with soap and water. Rinse well and pat dry. You may apply a Band-Aid to the site. Avoid lotions, ointments, or powders until fully healed. No submerged bathing, swimming, or hot tubs for the next 7 days, or until fully healed. You may take acetaminophen (Tylenol) as directed for discomfort. Notify your provider If you develop a large area of bruising or a large lump. It is normal to notice a small bruise around the puncture site and/or a small lump. If bleeding should occur, lay down and apply pressure to the affected area for 15 minutes. If groin pain is not relieved with acetaminophen (Tylenol). If you develop tingling, numbness, pain, or coolness in the leg/arm beyond the site where the procedure was performed. If post procedure chest discomfort unrelieved with acetaminophen (Tylenol) Follow up appointments You will be scheduled for a follow up appointment with your provider in 3-4 months. You will be scheduled for an appointment with Dr Bergman to discuss surgical ablation Any necessary appointments will be scheduled and appear on your After Visit Summary. documented in this [facility] Work Phone: 1(146) 562-892003-07-2025 Miscellaneous Notes* Care Plan - Vee Ramirez RN - 05/28/2024 8:00 AM EST Problem: Fall/Injury Goal: Not fall by end of shift Outcome: Progressing Goal: Be free from injury by end of the shift Outcome: Progressing Problem: Pain - Adult Goal: Verbalizes/displays adequate comfort level or baseline comfort level Outcome: Progressing Problem: Safety - Adult Goal: Free from fall injury Outcome: Progressing Problem: Discharge Planning Goal: Discharge to home or other facility with appropriate resources Outcome: Progressing Problem: Chronic Conditions and Co-morbidities Goal: Patient's chronic conditions and co-morbidity symptoms are monitored and maintained or improved Outcome: Progressing Problem: Nutrition Goal: Nutrient intake appropriate for maintaining nutritional needs Outcome: Progressing * Care Plan - Ava Milian RN - 05/27/2024 9:59 PM EST Problem: Fall/Injury Goal: Not fall by end of shift Outcome: Progressing Goal: Be free from injury by end of the shift Outcome: Progressing The patient's goals for the shift include rest The clinical goals for the shift include safety * Perioperative Nursing Note - Sabiha Chavis RN - 05/27/2024 2:45 PM EST Left radial discontinued. Manual pressure held 10 min for hemostasis. * Perioperative Nursing Note - Sabiha Chavis RN - 05/27/2024 2:[address] KORY darnell. She is attempting to speak with patient-he keeps falling back to sleep. * Perioperative Nursing Note - Sabiha Chavis RN - 05/27/2024 2:01 PM EST Ned STERLING still bedside. Neosynephrine given IVP for low blood pressure. * Pre-Sedation Documentation - Cheyenne Horn MD - 05/27/2024 11:39 AM EST Sedation Plan ASA 2 Mallampati class: II. Risks, benefits, and alternatives discussed with patient. * Pre-Sedation Documentation - Cahn Thakur MD - 05/27/2024 9:46 AM EST Sedation Plan ASA 2 Mallampati class: II. Risks, benefits, and alternatives discussed with patient. * Post-Procedure Note - Chan Thakur MD - 05/27/2024 9:00 AM EST Physician Transition of Care Summary Invasive Cardiovascular Lab Procedure Date: 05/27/24 Pre Procedure Indications: Persistent A-fib, preablation Post Procedure Diagnosis: Normal-sized left atrial appendage with no obvious thrombus or masses visualized. Procedure(s): Transesophageal echocardiogram Procedure Findings: Normal left ventricular systolic function with EF of about 50 to 55%. There is normal-sized right ventricle with preserved RV systolic function. Mild biatrial enlargement with no obvious intra-atrial masses or thrombus visualized. Saline contrast bubble study was negative. Trileaflet aortic valve with moderate aortic regurgitation. Mildly thickened mitral valve with mild mitral regurgitation. Structurally normal tricuspid valve with mild tricuspid regurgitation. Poorly visualized pulmonic valve with no pulmonic stenosis or regurgitation. There is mild plaque in the descending thoracic aorta Description of the Procedure: Transesophageal echocardiogram Complications: None Estimated Blood Loss: None Anesthesia: Conscious sedation any Specimen(s) Removed: None Electronically signed by: Chan Thakur MD, 05/27/2024 documented [facility] this [facility] Work Phone: 1(622) 743-523503-07-2025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 reported an isolated episode of extremity stiffening and tremor on 05/15/23. He remainedconscious at the time and denied aura or postictal symptoms. Given the clinical description and lack of impaired consciousness/altered awareness, I do not believe this sounds consistent with an epileptic seizure. The patient also reported one episode where he awoke from his sleep but could not openhis eyes and felt as if his legs [...] in 2020. He does believe his vision hasgradually worsened over time. MRI of the brain [...] be contributing to the patient's left hand paresthesiasand weakness, though he also has a cervical radiculopathy. Left cock-up wrist splint at bedtime didnot provided benefit. He denies any apparent symptoms [...] discussed in detail. All questions answered. Patient un derstands and is agreeable to the plan. Discussion in layman's terms. Follow up in the office within 1 month; sooner if needed for new or worsening symptoms. Jennifer Avery NP [facility] documented in this [facility]09-12-2024 Instructions* Patient Instructions* Jennifer Avery NP - 12/04/2023 9:00 AM EDT - MRI of the lumbar spine documented in this encounterSaint [facility] [id number] Progress note Author Lino Floyd [facility] November 11, 2023 1:45pmNote Date/TimeAugust 2023 12:44pm[place] [address] Psychiatry Progress Note Signed Patient: Juan Carlos Noguera MR#: [id number] : 1970 Acct:[id number] Age/Sex: 53 / M Adm Date: 4 Loc: Room: [address] [place] [address] Type : ADM IN Attending Dr: Ronaldo [...] and hygiene, calm, cooperative, engaged in the interview.Good eye contact. Normal psychomotor activity. Mental Status: mental status grossly normal Mood: good Affect: mood-congruent affect Speech and Movement: speech and movement normal and speech clear. Regular rate, rhythm, volume, andtone. Non pressured. Attitude: cooperative Thought Process: circumstantial, tangential Thought Content: Denies paranoid or delusional thoughts. Denied hallucinations, no homicidality andno suicidality. Does not appear to be responding to internalstimuli. Insight: limited Judgment: limited Patient was personally seen by me on the day of the encounter. I reviewed the history and performedthe clark elements of the physical examination. I formulated the plan of care and confirmed this withthe medical student as notedbelow. Exam Physical Exam [...] <Electronically signed by Lino Floyd MD> 11/11/23 5216 [facility] Work Phone: 1(162) 867-350808-19-2024 Progress note Author Lino Floyd [facility] November 10, 2023 12:53pmNote Date/TimeAugust 2023 12:13pm[place] [address] Psychiatry Progress Note Signed Patient: Juan Carlos Noguera MR#: [id number] : 1970 Acct:[id number] Age/Sex: 53 / M Adm Date: 4 Loc: Room: [address] [place] [address] Type : ADM IN Attending Dr: Ronaldo [...] thoughts regarding people talking behind his back abouthis past, thus preventing him from getting a job; pt discussed desire upon discharge to continue outpatient counselling and to search for a job again; pt believes he has improved since admission Sleeping and eating well Attending group No SI/HI tolerating current meds MSE Appearance: grossly normal. Fair grooming and hygiene, calm, cooperative, engaged in the interview.Good eye contact. Normal psychomotor activity. Mental Status: mental status grossly normal Mood: alright Affect: mood-congruent affect Speech and Movement: speech and movement normal and speech clear. Regular rate, rhythm, volume, andtone. Non pressured. Attitude: cooperative Thought Process: normal; linear, logical, and goal-oriented Thought Content: Reports paranoid thoughts. Denied hallucinations, delusions, nohomicidality and nosuicidality. Does not appear to be responding to internal stimuli. Insight: emerging Judgment: limited Patient was personally seen by me on the day of the encounter. I reviewed the history and performedthe clark elements of the physical examination. I formulated the plan of care and confirmed this withthe medical student as notedbelow. Exam Physical Exam [...] <Electronically signed by Lino Floyd MD> 11/10/23 1253 [facility] Work Phone: 1(614) 764-946008-18-2024 Progress note Author Ronaldo shanks [facility] November 09, 2023 3:23pmNote Date/TimeAugust 2023 1:28pm[place] [address] Psychiatry Progress Note Signed Patient: Juan Carlos Noguera MR#: [id number] : 1970 Acct:[id number] Age/Sex: 53 / M Adm Date: 4 Loc: 1S Room: 7C4579-0 Type : ADM IN Attending Dr: Ronaldo Castro MD Copies to: ~ Date of Service: 11/09/2023 Subjective Subjective Narrative: Mr. Juan Carlos Noguera is a 53 year old male on day 3 of hospitalization for depression with suicidal ideation Patient was personally seen by me on the day of the encounter. I reviewed the history and performedthe clark elements of the assessment. I formulated [...] and hygiene, calm, cooperative, engaged in the interview.Good eye contact. Normal psychomotor activity. Mental Status: mental status grossly normal Mood: depressed/anxious but overall better Affect: mood-congruent affect Speech and Movement: speech and movement normal and speech clear. Regular rate, rhythm, volume, andtone. Non pressured. Attitude: cooperative Thought Process: circumstantial, thought blocking present Thought Content: Denies paranoid or delusional thoughts. Denied hallucinations, no homicidality andno suicidality. Does not appear to be responding [...] signed by Ronaldo Castro MD> 11/09/23 1523 [facility] Work Phone: 1(971) 642-469408-17-2024 Progress note Author Ronaldo shanks [facility] November 08, 2023 8:21pmNote Date/TimeAugust 2023 8:30[place] [address] Psychiatry Progress Note Signed Patient: Juan Carlos Noguera MR#: [id number] : 1970 Acct:[id number] Age/Sex: 53 / M Adm Date: 4 Loc: Room: [address] [place] [address] Type : ADM IN Attending Dr: Ronaldo [...] the encounter. I reviewed the history and performedthe clark elements of the assessment. I formulated the planof care and confirmed this with the medical student as noted below Patient presents with a delayed thought process. He occasionally showing signs of thought blocking.He is concerend about his life after his [...] number and that his phone is , ad writer suggested charging phone to get number but pt does not think this is a good idea. Will follow up with patient tomorrow regarding same topic as he might be amenable with continued treatment. Sleeping and eating well Attending group No SI/HI tolerating current meds MSE Appearance: grossly normal. Fair grooming and hygiene, calm, cooperative, engaged in the interview.Poor eye contact. Normal psychomotor activity. Mental Status: mental status grossly normal Mood: worse than yesterday, I don't think I should be allowed to get better Affect: mood-congruent affect Speech and Movement: speech and movement normal and speech clear. Regular rate, rhythm, volume, andtone. Non pressured. Attitude: cooperative Thought Process: circumstantial, thought blocking present Thought Content: Denies paranoid or delusional thoughts. Denied hallucinations, no homicidality andno suicidality. Does not appear to be responding [...] <Electronically signed by Ronaldo Castro MD> 11/08/232020 [facility] Work Phone: 1(753) 898-266308-16-2024 Consult note Author Avril Fox [facility] November 07, 2023 4:09pmNote Date/TimeAugust 2023 4:04pm[place] [address] Cardiology Consult Note Signed Patient: Juan Carlos Noguera MR#: [id number] : 1970 Acct:[id number] Age/Sex: 53 / M Adm Date: 4 Loc: Room: [address] [place] [address] Type: ADM IN Attending Dr: Ronaldo Castro MD Copies to: MD Moreno Santiago MD Mourhaf A Traboulssi, MD~ Cardiology HPI History of Present Illness Consult Date: 11/07/23 Reason for Consult: Cardiac consultation requested for evaluation of atrial fibrillation HPI: Mr. Noguera is a 53 year old male with known history of atrial fibrillation diagnosed last year. He underwent evaluation by the [facility] cardiology group. He was diagnosed with mild nonischemic cardiomyopathy with LVEF around 45%. Mild coronary artery disease based on previous cardiac catheterization didnot require intervention. He did undergo cardioversion once which was successful but failedto remain in normal sinus rhythm. [facility] because of issue related to his depression and suicidal ideation. He was noted to be in atrial fibrillation his heart rateis slightly elevated. He had no cardiac symptoms. The patient was scheduled to see our EP department for consideration for ablation down the road Review of Systems Review of Systems Review of systems: Patient main concern is depression and suicidal ideation he does report symptomsof palpitation otherwise review of all other pertinent symptom completely negative [facility] Medical History (Updated 11/07/23 @ 14:51 by [...] and interpreted as documented below: (Atrial fibrillation withnonspecific ST-T changes. Heart rate around 112 bpm) [...] [facility]. Mild coronary artery disease based on recent heart cath at [facility] 4. Depression and anxiety Plan 1. Continue anticoagulation 2. Will increase Coreg to 12.5 mg twice daily. To optimize heart rate control 3. I advised the patient to call and reschedule his EP follow-up after discharge 4. Will follow on as-needed basis Documented By: Avril Fox MD 11/07/23 3062 Signed By: <Electronically signed by MD Avril Fox> 11/07/23 2222 [facility] Work Phone: 1(162) 879-875808-16-2024 History and physical note Author Ronaldo shanks [facility] November 07, 2023 2:51pmNote Date/TimeAugust 2023 9:53[place] [id number] Psychiatry H&P Signed Patient: Juan Carlos Noguera MR#: [id number] : 1970 Acct:[id number] Age/Sex: 53 / M Adm Date: 4 Loc: Room: [address] [place] [address] Type: ADM IN Attending Dr: Ronaldo Castro MD Copies to: MD Moreno Santiago MD~ Date of Service: 11/07/2023 HPI Narrative Narrative: Mr. Juan Carlos Noguera is a 53 year old male?with a reported history of depression?whopresents for inpatient treatment due to?suicidal ideation. Reportedly, patient presented to the ER voluntarily with themobile crisis unit for a mental health workup but would not answer if he was suicidal, just that he didn't want to wake up. Patient was personally seen by me on the day of the encounter. I reviewed the history and performedthe clark elements of the assessment. I formulated [...] years, but does not believe that will wolfe option upon discharge.?He states that his other family members talk behind his back to convince his mom to go to a senior living, thereby leaving him without housing options. According to ED note, pt contacted the suicide hotline, with whom he endorsed suicidal ideation and plan, and was brought in voluntarily by the mobile crisis unit. 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 He admits to previous hospitalization after the of his father in 2020. His father's passing has caused him much stress, and pt is wearing his father's wedding ring during interview. He suggests that his mother's healthhas been declining and that she isn't eating well, therefore he is also not eating well and losing weight. Juan Carlos reported that his mom told him they could go at the same time. He reports one time vi sual hallucination approximately one month ago where he saw a man that looked like uncle parth from the [employer] family but has not seen him again. [...] drinking from ages [age] with episodes of sobriety,mainly beer drinker; states that drinking is a [...] and speech clear. Regular rate, rhythm, volume, andtone. Non pressured. Attitude: cooperative Thought Process: thought-blocking present, circumstantial Thought Content: Denies paranoid or delusional thoughts. Denied hallucinations, no homicidality andno suicidality. Does not appear to be responding to internalstimuli. Insight: limited Judgment: limited [facility] Medical History (Updated 11/07/23 @ 14:51 by [...] Appearance Clear Urine pH 6.0 Ur Specific B[place]orn 1.017 Urine Protein 30 H Urine Glucose [...] <Electronically signed by Ronaldo Castro MD> 11/07/23 9270 [facility] Work Phone: 1(972) 717-542805-09-2024 Evaluation + Plan noteExtracted from:Title: Procedure Note Heart & VascularAuthor:Tylor Knight MD DDate:07/31/23 Ordered: atropine, 1 mg = 10 mL, [...] Site Prep Per Protocol Vital Signs Extracted from:Title:Turner Basic PREAuthor:Oswaldo Tompkins DODate:07/31/23 Plan [employer] (ASA) physical status classification: Class II. Anesthetic Preoperative Plan: Anesthesia General. Future Appointments Appointment Date:08/11/2023 03:00:00 PM Scheduled Provider:Tylor Knight MD Location:[facility].Cardiology Clinic Appointment Type:Cardiology Follow Up (FT) Appointment Date:10/31/2023 01:00:00 PM Scheduled Provider:Zeb Delarosa MD Location:[facility].Cardiology Clinic [place] Appointment Type:Cardiology Follow Up (FT) Future Scheduled Tests Laboratory* B-Type Natriuretic Peptide 06/16/23 * Basic Metabolic Panel 05/06/23 * Basic Metabolic Panel 06/16/23 * Basic Metabolic Panel 07/25/23 * CBC w/ Auto Diff 05/06/23 [facility]05-09-2024 Hospital Discharge instructions Patient Education 07/31/2023 08:28:36 CV - Cardioversion (CUSTOM) [place], [place] CARDIOVERSION AFTER THE PROCEDURE: DIET: Resume [...] event you are unable to reach your cytopathology technologist, please call [facility] at [phone] and the tube making machine operator will assist you in contacting [...] Care 07/28/2023 08:53:54 With:Tylor Knight Address: [address] [place] [phone] Business (1) When:08/11/2023 15:00:00 [facility]05-03-2024 Evaluation + Plan note Future Scheduled Tests Laboratory* Basic Metabolic Panel 07/25/23 * Hepatic Function Panel 12/30/23 * Thyroid Stimulating Hormone 12/30/23 [facility] 03-25-2024 Evaluation + Plan note Future Scheduled Tests Laboratory* B-Type Natriuretic Peptide 06/16/23 * Basic Metabolic Panel 05/06/23 * Basic Metabolic Panel 06/16/23 * Basic Metabolic Panel 07/25/23 * CBC w/ Auto Diff 05/06/23 [facility] 03-25-2024 Evaluation + Plan note Future Scheduled Tests Laboratory* B-Type Natriuretic Peptide 06/16/23 * Basic Metabolic Panel 05/06/23 * Basic Metabolic Panel 06/16/23 * Basic Metabolic Panel 07/25/23 * CBC w/ Auto Diff 05/06/23 * Hepatic Function Panel 12/30/23 * Thyroid Stimulating Hormone 12/30/23 [facility] 02-15-2024 Hospital Discharge instructions Patient Education 05/08/2023 13:13:00 CV - Cardiovascular Discharge Instructions (CUSTOM) [place], [place] CARDIOVASCULAR DISCHARGE INSTRUCTIONS Diet: Resume pre-procedure [...] hours post procedure: Actoplus MetGlucophageGlucophage XR GlucovanceAvandametFortamet Yaz-fruwzgmsqFeitvlWdll-hnqltlirr GlumetzaJanumetMetaglip RiometGlycomet *Minimal pain, soreness and/or discomfort [...] you are interested in smoking cessation, contact [facility] at [phone], ext. [phone]. In the event you are unable to reach your physician, please call [facility] at [phone] and the tube making machine operator will assist you. Seek Immediate Medical Care for: Bleeding: Apply continuous pressure to the site and Call 911. Should the arm or leg become cold, numb, blue or white call your physician immediately. Signs of infection are redness, warmth, swelling, increased tenderness, colored drainage, fever or chills Chest pain Follow Up Care 05/05/2023 16:03:04 With:Zeb Delarosa Address: [address] [place] [address] Business (1) When:05/30/2023 15:15:00 [facility]10-06-2023 Evaluation note* Encounter Date Diagnosis Assessment Notes Treatment Notes Treatment Clinical Notes Dec, Foraminal stenosis of cervical r egion (ICD-10 - M48.02) [employer] Other 09-19-2023 Evaluation note* Encounter Date Diagnosis Assessment Notes Treatment Notes Treatment Clinical Notes Nov, Foraminal stenosis of cervical r egion (ICD-10 - M48.02) [employer] Other 09-14-2023 Evaluation note* Encounter Date Diagnosis Assessment Notes Treatment Notes Treatment Clinical Notes Nov, Left cervical radiculopathy (ICD -10 - M54.12) With further discussion, the pain radiates from his hand to forearm and throughout upper arm. Will begin w cervical xray. 14 Nov, 2022Lumbar pain (ICD-10 - M54.50)While at XR dept - due to history of multiple injuries, will check XR. 14 Nov, 2022Mild persistent asthma with acute exacerbation (ICD-10 - J45.31)Pt requests refill of inhaler. [employer] Other 07-10-2023 Evaluation note* Encounter Date Diagnosis Assessment Notes Treatment Notes Treatment Clinical Notes Sep, Bilateral impacted cerumen (ICD- 10 - H61.23) Ear lavage in office today. [...] understanding and is agreeable to treatment plan. [employer] Other Chief complaint+Reason for visit Narrative* Chief Complaint Admit Date MEDICAL CLEARANCE January 17, 2025 3 :08pm Reason for Visit Admit Date Anxiety January 17, 2025 3 :08pm Depression January 17, 2025 3 :08pm [facility] Work Phone: Evaluation + Plan note Future Appointments Appointment Date:05/02/2023 01:15:00 PM Scheduled Provider:Zeb Delarosa MD Location:FT.Cardiology [facility] Appointment Type:Cardiology Follow Up (FT) Future Scheduled Tests Radiology* NM Myocardial Spect Rest/Stress 1 Day 03/20/23 * Echo Transthoracic Complete [facility]20[facility]23 [facility] Future Appointments Appointment Date:05/02/2023 01:15:00 PM Scheduled Provider:Zeb Delarosa MD [facility] Appoint[facility] Type:Cardiology Follow Up ([facility]) [facility] Future Appointments Appointment Date:10/31/2023 01:00:00 PM Scheduled Provider:Zeb Delarosa MD Location:[facility] Appointment Type:Cardiology Follow Up (FT) [facility] Future Appointments Appointment Date:05/30/2023 03:00:00 PM Scheduled Provider:Zeb Delarosa MD Location:[facility] Appointment Type:Cardiology Follow Up (FT) Appointment Date:10/31/2023 01:00:00 PM Scheduled Provider:Zeb Delarosa MD Location:[facility] Appointment Type:Cardiology Follow Up (FT) Future Scheduled Tests Laboratory* Basic Metabolic Panel 05/06/23 * CBC w/ Auto Diff 05/06/23 [facility] Future Appointments Appointment Date:10/31/2023 01:00:00 PM Scheduled Provider:Zeb Delarosa MD Location:[facility] Appointment Type:Cardiology Follow Up (FT) Future Scheduled Tests Laboratory* Basic Metabolic Panel 05/06/23 * CBC w/ Auto Diff 05/06/23 [facility] Future Appointments Appointment Date:10/31/2023 01:00:00 PM Scheduled Provider:Zeb Delarosa MD Location:[facility] Appointment Type:Cardiology Follow Up (FT) Future Scheduled Tests Laboratory* B-Type Natriuretic Peptide 06/16/23 * Basic Metabolic Panel 05/06/23 * Basic Metabolic Panel 06/16/23 * Basic Metabolic Panel 07/25/23 * CBC w/ Auto Diff 05/06/23 [facility] Future Appointments Appointment Date:10/27/2023 10:00:00 AM Scheduled Provider: [facility] Type:CV Holter/Event (FT) Appointment Date:11/11/2023 09:00:00 AM Scheduled Provider:Tylor Knight MD [facility] Type:Cardiology Follow Up (FT) Future Scheduled Tests Laboratory* B-Type Natriuretic Peptide 06/16/23 * Basic Metabolic Panel 05/06/23 * Basic Metabolic Panel 06/16/23 * Basic Metabolic Panel 07/25/23 * CBC w/ Auto Diff 05/06/23 [facility] Future Appointments Appointment Date:11/11/2023 09:00:00 AM Scheduled Provider:Tylor Knight MD [facility] Type:Cardiology Follow Up (FT) Future Scheduled Tests Laboratory* B-Type Natriuretic Peptide 06/16/23 * Basic Metabolic Panel 05/06/23 * Basic Metabolic Panel 06/16/23 * Basic Metabolic Panel 07/25/23 * CBC w/ Auto Diff 05/06/23 [facility] Evaluation + Plan note Future Appointments Appointment Date:01/30/2024 02:45:00 PM Scheduled Provider:Tylor Knight MD [facility] [place] Appointment Type:Cardiology Follow Up (FT) Future Scheduled Tests Laboratory* B-Type Natriuretic Peptide 06/16/23 * Basic Metabolic Panel 05/06/23 * Basic Metabolic Panel 06/16/23 * Basic Metabolic Panel 07/25/23 * CBC w/ Auto Diff 05/06/23 * Hepatic Function Panel 12/30/23 * Thyroid Stimulating Hormone 12/30/23 [facility] Evaluation note* Diagnosis Onset Date Resolution Status Anxiety disorder acuteBMI 25.0-25.9,adultacuteChews tobaccoacuteMajor depressionacutePTSD (post- traumatic stress disorder)acuteCigarette nicotine dependence without complicationnoneactive [facility] Work Phone: evaluation note* Diagnosis Onset Date Resolution Status Anxiety disorder acuteBMI 25.0-25.9,adultacuteChews tobaccoacuteInsomniaacuteMajor depression acutePTSD (post-traumatic stress disorder)chronicCigarette nicotine dependence without complicationnoneactiveAnxiety disorderacuteBMI 25.0-25.9,adultacuteChews tobaccoacuteMajor depressionacuteSwelling of left middle fingerchronicCigarette nicotine dependence without complicationnoneactive [facility] Work Phone: evaluation note* Diagnosis Onset Date Resolution Status BMI 25.0-25.9,adult acuteInsomniaacuteAnxiety disorderchronicChews tobaccochronicCigarette nicotine dependence without complicationchronicMajor depressionchronicPTSD (post- traumatic stress disorder)chronicBMI 25.0-25.9,adultacuteAnxiety disorderchronic Chews tobaccochronicCigarette nicotine dependence without complicationchronic Major depressionchronicSwelling of left middle fingerchronicBMI 24.0-24.9, adult acuteAnxiety disorderchronicChews tobaccochronicCigarette nicotine dependence without complicationchronicMajor depressionchronicSwelling of left middle finger chronic [facility] Work Phone: evaluation noteNo assessment information available [facility] Work Phone: Evaluation note* Diagnosis Onset Date Resolution Status Suicidal ideation acute [facility] Work Phone: Evaluation note* Diagnosis Onset Date Resolution Status Generalized anxiety disorder acuteMajor depressive disorder, recurrent, moderateacuteSuicidal ideationacute [facility] Work Phone: Evaluation note* Diagnosis Onset Date Resolution Status Suicidal ideation resolvedAcute conjunctivitis, left eyeacute [facility] Work Phone: Evaluation note* Diagnosis Atrial fibrillation, unspecified type (Multi)- Primary Other fatigue Shortness of breath on exertion Shortness of breath Encounter to establish care with new doctor Encounter for medication review and counseling Encounter to discuss treatment options BMI 26.0-26.9,adult Current smoker documented in this encounter [facility] Work Phone: Evaluation note* Diagnosis Lumbar [...] Carpal tunnel syndrome documented in this encounter [facility] HealthcareEvaluation note* Diagnosis Lumbar radiculopathy- Primary Thoracic or lumbosacral neuritis or radiculitis, unspecified Weakness of both lower extremities Cognitive impairment Unspecified persistent mental disorders due to conditions classified elsewhere Anxiety Anxiety state, unspecified Muscle stiffness Unspecified disorder of muscle, ligament, and fascia Blurry vision, bilateral Other specified visual disturbances documented in this encounter [facility] HealthcareEvaluation note* Diagnosis Atrial fibrillation, unspecified type (Multi) Other fatigue Shortness of breath on exertion Shortness of breath Atrial fibrillation, unspecified type (Multi) Other fatigue Shortness of breath on exertion Shortness of breath Atrial fibrillation, unspecified type (Multi) Other fatigue Shortness of breath on exertion Shortness of breath documented in this encounter [facility] Work Phone: Evaluation note* Diagnosis Atrial fibrillation, unspecified type (Multi) documented in this encounter [facility] Work Phone: Evaluation note* Diagnosis Atrial fibrillation, persistent (Multi)- Primary Atrial fibrillation, unspecified type (Multi) Other fatigue Shortness of breath on exertion Shortness of breath PAF (paroxysmal atrial fibrillation) (Multi) Atrial fibrillation Atrial fibrillation, persistent (Multi) Atrial fibrillation (Multi) Atrial fibrillation Other fatigue Shortness of breath on exertion Shortness of breath Atrial fibrillation, unspecified type (Multi) Other fatigue Shortness of breath on exertion Shortness of breath documented in this encounter [facility] Work Phone: Evaluation note* Diagnosis Onset Date Resolution Status Admit Date Anxiety acuteOctober 2024 3:08pmDepressionacuteOctober 2024 3:08pm [facility] Work Phone: History general Narrative - Reported*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
--- NOTE | 2025-02-18 10:39 | ED.GENADUL1 ---
HPI HPI - General Adult General Chief complaint: Altered Mental Status Stated complaint: NOT HIMSELF TODAY Time Seen by Provider: 02/18/25 09:49 Source: patient Mode of arrival: walk-in Limitations: no limitations History of Present Illness HPI narrative: 54-year-old male presented for uncertain reasons. He tells me he does not want to be here. He is accompanied by his mother who gives some of the history. He apparently got out of [facility] [address] a few weeks ago. He tells me he has been taking his medications. His mother states he is not acting himself but the patient states he is not confused at all and is fine. He has no physical complaints. Related Data Allergies Allergy/AdvReac Type Severity Reaction Status Date / Time No Known Drug Allergies Allergy Verified 02/18/25 09:57 Review of Systems ROS Narrative A ten point review of systems is negative except as noted above. Exam Narrative Exam Narrative: Nurses note and vital signs reviewed General:The patient appears well and in no apparent distress.Patient is resting comfortably on cart. Skin:Warm, dry, no pallor noted.There is no rash noted. Head:Normocephalic, atraumatic Eye: Normal conjunctiva, no drainage Ears, Nose, Mouth, and Throat: oral mucosa is moist. Nares patent. Cardiovascular:Regular Rate and Rhythm Respiratory:Patient is in no distress, no accessory muscle use, lungs are clear to auscultation, no wheezing, rales or rhonchi Back:non-tender, no CVA tenderness bilaterally to percussion. GI: Soft and nontender Musculoskeletal: The patient has no evidence of calf tenderness, no pitting edema, symmetrical pulses noted bilaterally Neurological:A&O x4, normal speech Psychiatric: Seems reluctant to answer some questions but is generally cooperative. Constitutional Vital Signs, click to edit/add: Last Vital Signs Temp 97.8 F 02/18/25 09:57 Pulse 83 02/18/25 09:57 Resp 16 02/18/25 09:57 BP 151/85 H 02/18/25 09:57 Pulse Ox 97 02/18/25 09:57 O2 Del Method Room Air 02/18/25 09:57 Course Vital Signs Vital signs: Vital Signs Temperature 97.8 F 02/18/25 09:57 Pulse Rate 83 02/18/25 09:57 Respiratory Rate 16 02/18/25 09:57 Blood Pressure 151/85 H 02/18/25 09:57 Pulse Oximetry 97 02/18/25 09:57 Oxygen Delivery Method Room Air 02/18/25 09:57 Temperature 97.8 F 02/18/25 09:57 Pulse Rate 83 02/18/25 09:57 Respiratory Rate 16 02/18/25 09:57 Blood Pressure 151/85 H 02/18/25 09:57 Pulse Oximetry 97 02/18/25 09:57 Oxygen Delivery Method Room Air 02/18/25 09:57 Medical Decision Making MDM Narrative Medical decision making narrative: The patient is not suicidal or homicidal and is fully oriented. He refuses to be here or have testing performed and is leaving AGAINST MEDICAL ADVICE. His workup could not be completed but there is no reason to hold him here against as well. Lab Data Lab results reviewed: Yes I reviewed the patient's lab results Labs: Lab Results 02/18/25 Range/Units 10:05 POC Glucose 97 (74-106) mg/dL ECG Data Attestation: I personally reviewed and interpreted this ECG as follows: (EKG on my interpretation shows sinus rhythm with a rate of 77 and no acute change) Discharge Plan Discharge Stand Alone Forms: Portal Instructions Chief Complaint: Altered Mental Status Clinical Impression: Normal physical exam Patient Disposition: Left Against Medical Advice Time of Disposition Decision: 10:39 Condition: Good Mode of Transportation: Private Vehicle Print Language: Chilean Referrals: Monica Rosales MD [Primary Care Provider, Family Practice] - 1 week Discharge Date/Time: 02/18/25 10:34
== END 2025-02-18 10:34 | disposition left against medical advice (07) ==
LOC: ER 10:30
PROVIDERS: Emergency Provider Emergency Medicine; PCP Family Medicine
DX: Z53.29 Procedure and treatment not carried out because of patient's decision for other reasons (principal)
CPT/HCPCS: 36415; 80048; 80179; 80307; 80320; 80329; 81001; 82948; 93005; 99284